=== PATIENT | male | born 1940 | race Hispanic/Latino ===

== ENCOUNTER 2017-11-10 15:43 | Inpatient (IN) | payer MEDICARE ==
[2017-11-08 14:38] VITALS: BMI 41.5
[2017-11-10] MEDS ORDERED: (Novolog) Insulin Aspart, Recombinant 100 u/ml 10 ml vial SC SCH (16:15)
--- NOTE | 2017-11-10 16:29 | CP.PCM.CON ---
History of Present Illness - History of Present Illness History of Present Illness: 77 y/o male with pmx of hyperbillirubinemia (previous work up for MRI reveal possible mass effect pancrease), ERCP not performed 2nd hemodynamic status. Patient was treated at [facility] [place] for ARF, jaundice and heart failure. PAtient notes difficult breathing with minimal exertion. PAtient has "yellow skin" for more than 2 weeks. Patient was being treated for coagulopathy and is trasnferred to [facility] for HD. Patient seen and examine at bedside. Patient awake, alert. denies any abdminal pain, denies any chest pain, denies any headaches, (+)SOB. Review of Systems - Review of Systems All systems: reviewed and no additional remarkable complaints except Review of Systems: (+)SOB, (+)jaundice Past Patient History - Infectious Disease Hx of Infectious Diseases: None - Tetanus Immunizations Tetanus Immunization: Unknown - Past Social History Smoking Status: Current Some Days Smoker - CARDIAC Hx Cardiac Disorders: Yes Hx Cardia Arrhythmia: Yes Hx Circulatory Problems: No Hx Congestive Heart Failure: Yes Hx Heart Murmur: No Hx Heart Transplant: No Hx Hypercholesterolemia: Yes Hx Hypertension: Yes Hx Internal Defibrillator: No Hx Mitral Valve Prolapse: No Hx Pacemaker: No Hx Peripheral Edema: No Hx Peripheral Vascular Disease: No - PULMONARY Hx Respiratory Disorders: No Hx Asthma: No Hx Bronchitis: No Hx Chronic Obstructive Pulmonary Disease (COPD): No Hx Emphysema: No Hx Pneumonia: No Hx Respiratory Aspiration: No Hx Respiratory Tract Infection: No Hx Sleep Apnea: No Hx Tuberculosis: No - NEUROLOGICAL Hx Neurological Disorder: No Hx Alzheimer's Disease: No HX Cerebrovascular Accident: No Hx Dementia: No Hx Dizziness: No Hx Meningitis: No Hx Migraine: No Hx Parkinson's Disease: No Hx Seizures: No Hx Transient Ischemic Attacks (TIA): No - HEENT Hx HEENT Problems: No - RENAL Hx Chronic Kidney Disease: No - ENDOCRINE/METABOLIC Hx Endocrine Disorders: No - HEMATOLOGICAL/ONCOLOGICAL Hx Blood Disorders: No Hx AIDS: No Hx Anemia: No Hx Cancer: No Hx Chemotherapy: No Hx Cirrhosis: No Hx Hepatitis A: No Hx Hepatitis B: No Hx Hepatitis C: No Hx Human Immunodeficiency Virus (HIV): No Hx Metastesis: No Hx Shingles: No Hx Unexplained Bleeding: No - INTEGUMENTARY Hx Dermatological Problems: No - MUSCULOSKELETAL/RHEUMATOLOGICAL Hx Musculoskeletal Disorders: Yes Hx Arthritis: No Hx Back Pain: No Hx Degenerative Joint Disease: No Hx Falls: No Hx Fractures: No Hx Gout: No Hx Herniated Disk: No Hx Myasthenia Gravis: No Hx Osteoarthritis: Yes Hx Osteomyelitis: No Hx Osteoporosis: No Hx Rhabdomyolysis: No Hx Spinal Stenosis: No Hx Unsteady Gait: No - GASTROINTESTINAL Hx Gastrointestinal Disorders: Yes Hx Colostomy: No Hx Crohn's Disease: No Hx Diverticulitis: No Hx Gall Bladder Disease: Yes Hx Gastroesophageal Reflux: No Hx Ileostomy: No Hx Liver Failure: No Hx Pancreatitis: No HX Swallowing Problems: No Hx Ulcer: No - GENITOURINARY/GYNECOLOGICAL Hx Genitourinary Disorders: No - PSYCHIATRIC Hx Psychophysiologic Disorder: No Hx Substance Use: No - SURGICAL HISTORY Hx Surgeries: No Hx Amputation: No Hx Appendectomy: No Hx Cardiac Catheterization: Yes Hx Cholecystectomy: No Hx Coronary Stent: No Hx Gastric Bypass Surgery: No Hx Hysterectomy: No Hx Joint Replacement: No Hx Kidney Transplant: No Hx Liver Transplant: No Hx Mastectomy: No Hx Musculoskeletal Surgery: No Hx Open Heart Surgery: No Hx Orthopedic Surgery: No Hx Splenectomy: No Hx Valve Replacement: No - ANESTHESIA Hx Anesthesia Reactions: No Hx Malignant Hyperthermia: No Meds Allergies/Adverse Reactions: Allergies Allergy/AdvReac Type Severity Reaction Status Date / Time aspirin Allergy ANAPHYLAXIS Verified 11/08/17 14:49 Penicillins Allergy PT DOES Verified 11/08/17 14:49 NOT REMEMBER THE REACTION - Medications Medications: Current Medications Norepinephrine Bitartrate 8 mg (/ Dextrose) 258 mls @ 7.74 mls/hr IV .Q24H PRN ; Protocol; 4 MCG/MIN PRN Reason: TITRATE PER MD ORDER Meropenem 500 mg/ Sodium (Chloride) 100 mls @ 100 mls/hr IVPB QAM JAQUELINE PRN Reason: Protocol Insulin Aspart (Novolog) 0 unit SC Q6H JAQUELINE PRN Reason: Protocol Physical Exam - Head Exam Head Exam: ATRAUMATIC, NORMAL INSPECTION - Eye Exam Eye Exam: Scleral icterus Pupil Exam: PERRL - ENT Exam ENT Exam: Mucous Membranes Moist - Neck Exam Neck exam: Positive for: Normal Inspection - Respiratory Exam Respiratory Exam: Rales, NORMAL BREATHING PATTERN. absent: Rhonchi, Wheezes, Respiratory Distress - Cardiovascular Exam Cardiovascular Exam: Irregular Rhythm, +S1, +S2, Systolic Murmur - GI/Abdominal Exam GI & Abdominal Exam: Distended, Normal Bowel Sounds, Soft. absent: Bruit, Guarding, Hernia, Rebound, Rigid, Tenderness - Extremities Exam Extremities exam: Positive for: pedal edema Results - Labs Result Diagrams: 11/10/17 16:02 11/10/17 17:37 Assessment & Plan - Assessment and Plan (Free Text) Assessment: PAinless JAundice: c/w suspect cholangiocarcinoma or billiary obstruction. keep patient NPO, not a candidate for ERCP 2nd severe heart failure, will request IR to place percutaneous nephrostomy tube -Severe systolic heart failure (EF ~20%): avoid fluid overloaded states, will not benefit from acei, bi-pap PRN -hypoxic respiratory failure: continue oxygen to keep spo2 >92, breathing comfortably -Septic shock: start pressors to keep MAP >65, start marisel (tolerated as bag infusing while patient was transported)/(renally dosed), serial lactic and quintero culture -MACIE/CKD stage IV: will benefit from renal eval and anticiapted HD(original plan for transfer) -BGM q6hrs/aspart ISS -pud ppx protonix IV -DVT ppx scds Patient's overall prognosis poor as age, clinical symptoms (painless jaundice) suggests possible underlying cancer (cholangiocarcinoma/pancreatic)--unable to diagnose with tissue biopsy due to patient's other co-morbidities. above management d/w son and at bedside with patient. -obtain imaging, obtain IR consult for percutaneous drainage and continue HD. -surgery and GI consulted for input cc time 45 minutes All diagnostic tests pending d/w primary team - Date & Time Date: 11/10/17 Time: 16:37
--- NOTE | 2017-11-10 17:10 | CP.PCM.HP ---
Addendum entered and electronically signed by Cristine Alonso DO 11/11/17 01 :28: (1) Septic shock Assessment and Plan: On admission, systolic pressure in the 80s/90s , mildly tachycardic, leukocytosis On Merrem, Pressor support at this time. F/U TAYLOR cultures Intensive care monitoring Status: Acute Original Note: <Cristine Alonso - Last Filed: 11/11/17 00:47> History of Present Illness - History of Present Illness History of Present Illness: Patient seen and examined at approximately 5:15Pm in ICU Bed 18. Patient is a FULL CODE status at this time. His Son Christopher Blount is his emergency contact. He can be reached at [phone]. CC: back pain and pruritus HPI: 77 year old male with past medical history significant for Obstructive Jaundice, Atrial Fibrillation, CHF, GI Bleed and History of Pancreatic mass presents via transfer from [facility] for dialysis. Patient was previously being managed at [facility] for acute renal failure and jaundice. Earlier today, patient had a dialysis catheter placed in preparation for urgent dialysis. Patient states that his symptoms started back in October of this year when he noticed that his urine was a darkened color. He states that he followed up with his primary medical doctor who began a workup soon afterwards . Patient states that he has had a yellow tinge to his skin for approximately the past two weeks. Patient followed up with GI and had MRCP performed with findings which could not rule out pancreatic or biliary mass involvement. Patient was to go for outpatient ERCP on November 08, 2017 ; however became hypotensive and was thus sent to the ED at [facility] for further evaluation and workup requiring critical care as well as surgical and GI involvement. Patient states that his main complaints are back pain and pruritus. Patient denies chest pain, palpitations, nausea, vomiting or headaches at this time. PMHx- as stated above PSHx- Cardiac cath in 2013 or 2014, Dialysis Cath 11/2017 Fam Hx- Both parents of lung cancer Medications- Lisinopril, Coreg, Previously on Coumadin but stopped 4 weeks prior due to GI bleed , occasionally takes Lasix Social- Former cigar smoker (10 cigars a year)- History of secondhand smoke exposure for decades; denies alcohol or illicit drug use Allergies- ASA (gastritis) and PCN (unsure) Present on Admission - Present on Admission Any Indicators Present on Admission: No Review of Systems - Cardiovascular Cardiovascular: absent: Chest Pain, Chest Pain at Rest, Palpitations - Respiratory Respiratory: absent: Dyspnea, Dyspnea on Exertion - Gastrointestinal Gastrointestinal: absent: Nausea, Vomiting - Musculoskeletal Musculoskeletal: Back Pain. absent: Numbness - Integumentary Integumentary: Pruritus, Unusual Bruising - Neurological Neurological: absent: Headaches, Weakness - Psychiatric Psychiatric: absent: Anhedonia, Anxiety - Endocrine Endocrine: absent: Change in Body Appearance, Excessive Sweating - Hematologic/Lymphatic Hematologic: Easy Bleeding, Easy Bruising Past Patient History - Infectious Disease Hx of Infectious Diseases: None - Tetanus Immunizations Tetanus Immunization: Unknown - Past Social History Smoking Status: Current Some Days Smoker - CARDIAC Hx Cardiac Disorders: Yes Hx Cardia Arrhythmia: Yes Hx Circulatory Problems: No Hx Congestive Heart Failure: Yes Hx Heart Murmur: No Hx Heart Transplant: No Hx Hypercholesterolemia: Yes Hx Hypertension: Yes Hx Internal Defibrillator: No Hx Mitral Valve Prolapse: No Hx Pacemaker: No Hx Peripheral Edema: No Hx Peripheral Vascular Disease: No - PULMONARY Hx Respiratory Disorders: No Hx Asthma: No Hx Bronchitis: No Hx Chronic Obstructive Pulmonary Disease (COPD): No Hx Emphysema: No Hx Pneumonia: No Hx Respiratory Aspiration: No Hx Respiratory Tract Infection: No Hx Sleep Apnea: No Hx Tuberculosis: No - NEUROLOGICAL Hx Neurological Disorder: No Hx Alzheimer's Disease: No HX Cerebrovascular Accident: No Hx Dementia: No Hx Dizziness: No Hx Meningitis: No Hx Migraine: No Hx Parkinson's Disease: No Hx Seizures: No Hx Transient Ischemic Attacks (TIA): No - HEENT Hx HEENT Problems: No - RENAL Hx Chronic Kidney Disease: No - ENDOCRINE/METABOLIC Hx Endocrine Disorders: No - HEMATOLOGICAL/ONCOLOGICAL Hx Blood Disorders: No Hx AIDS: No Hx Anemia: No Hx Cancer: No Hx Chemotherapy: No Hx Cirrhosis: No Hx Hepatitis A: No Hx Hepatitis B: No Hx Hepatitis C: No Hx Human Immunodeficiency Virus (HIV): No Hx Metastesis: No Hx Shingles: No Hx Unexplained Bleeding: No - INTEGUMENTARY Hx Dermatological Problems: No - MUSCULOSKELETAL/RHEUMATOLOGICAL Hx Musculoskeletal Disorders: Yes Hx Arthritis: No Hx Back Pain: No Hx Degenerative Joint Disease: No Hx Falls: No Hx Fractures: No Hx Gout: No Hx Herniated Disk: No Hx Myasthenia Gravis: No Hx Osteoarthritis: Yes Hx Osteomyelitis: No Hx Osteoporosis: No Hx Rhabdomyolysis: No Hx Spinal Stenosis: No Hx Unsteady Gait: No - GASTROINTESTINAL Hx Gastrointestinal Disorders: Yes Hx Colostomy: No Hx Crohn's Disease: No Hx Diverticulitis: No Hx Gall Bladder Disease: Yes Hx Gastroesophageal Reflux: No Hx Ileostomy: No Hx Liver Failure: No Hx Pancreatitis: No HX Swallowing Problems: No Hx Ulcer: No - GENITOURINARY/GYNECOLOGICAL Hx Genitourinary Disorders: No - PSYCHIATRIC Hx Psychophysiologic Disorder: No Hx Substance Use: No - SURGICAL HISTORY Hx Surgeries: No Hx Amputation: No Hx Appendectomy: No Hx Cardiac Catheterization: Yes Hx Cholecystectomy: No Hx Coronary Stent: No Hx Gastric Bypass Surgery: No Hx Hysterectomy: No Hx Joint Replacement: No Hx Kidney Transplant: No Hx Liver Transplant: No Hx Mastectomy: No Hx Musculoskeletal Surgery: No Hx Open Heart Surgery: No Hx Orthopedic Surgery: No Hx Splenectomy: No Hx Valve Replacement: No - ANESTHESIA Hx Anesthesia Reactions: No Hx Malignant Hyperthermia: No Meds Allergies/Adverse Reactions: Allergies Allergy/AdvReac Type Severity Reaction Status Date / Time aspirin Allergy ANAPHYLAXIS Verified 11/08/17 14:49 Penicillins Allergy PT DOES Verified 11/08/17 14:49 NOT REMEMBER THE REACTION Physical Exam - Constitutional Appears: Non-toxic Additional comments: large body habitus - Head Exam Head Exam: ATRAUMATIC - Eye Exam Eye Exam: EOMI, Scleral icterus - ENT Exam ENT Exam: Mucous Membranes Moist - Neck Exam Neck exam: Positive for: Full Rom - Respiratory Exam Respiratory Exam: NORMAL BREATHING PATTERN. absent: Rales, Wheezes - Cardiovascular Exam Cardiovascular Exam: +S1, +S2 - GI/Abdominal Exam GI & Abdominal Exam: Distended, Soft. absent: Firm, Guarding, Tenderness - Extremities Exam Extremities exam: Positive for: pedal edema - Back Exam Back exam: absent: FULL ROM - Neurological Exam Neurological exam: Alert, Oriented x3 - Psychiatric Exam Psychiatric exam: Normal Affect, Normal Mood - Skin Skin Exam: Petechiae (noted on anterior left shoulder, abdomen with superficial bruising) Additional comments: Jaundiced Results - Vital Signs Recent Vital Signs: Last Vital Signs Temp Pulse 82 11/10/17 16:41 Resp BP 95/53 L 11/10/17 16:41 Pulse Ox - Labs Result Diagrams: 11/10/17 16:02 11/10/17 17:37 Assessment & Plan (1) Septic shock Assessment and Plan: On admission, systolic pressure in the 80s/90s , mildly tachycardic, leukocytosis Pressor support at this time. F/U TAYLOR cultures Intensive care monitoring Status: Acute (2) Obstructive jaundice Assessment and Plan: Patient is not a candidate for ERCP due to CHF. Consult to IR for cholangiogram with stent placement. F/U recommendations F/U GI recommendations Concerns for panceratic mass noted on imaging- F/U HemeOnc recommendations Status: Acute (3) Acute renal failure Assessment and Plan: Originally for dialysis today; however patient deferred today. Agreeable to HD therapy on 11/11 F/U recommendations from Dr. Carolina, [employer] Monitor renal function Status: Acute (4) Congestive heart failure Assessment and Plan: Most recent ECHO with EF approx 40% from 10/31/2017. Refer to complete report. Back in 2013, patient's EF was 20-25%. Discrepancy noted F/U recommendations from Manufact[employer] Representative Dr. Combs Monitor intake and output. Height of bed elevated Status: Chronic (5) Atrial fibrillation Assessment and Plan: On Coreg 6.25 mg PO BID at home Coumadin discontinued due to recent GI bleed F/U Cardio recommendations Status: Chronic (6) Prophylactic measure Assessment and Plan: On PPI 40 mg IV daily Chemical anticoagulation contraindicated in light of history of recent GI bleed Status: Acute <Helio Guevara - Last Filed: 11/11/17 08:50> Results - Vital Signs Recent Vital Signs: Last Vital Signs Temp 97.4 F L 11/11/17 04:00 Pulse 106 H 11/11/17 04:15 Resp 24 11/11/17 04:15 BP 100/65 11/11/17 04:11 Pulse Ox 97 11/11/17 04:15 - Labs Result Diagrams: 11/11/17 06:15 11/11/17 06:15 Labs: Laboratory Results - last 24 hr 11/10/17 11/10/17 11/10/17 16:02 17:37 17:37 WBC 13.1 H RBC 3.33 L Hgb 10.8 L Hct 31.2 L MCV 93.8 MCH 32.6 H MCHC 34.7 RDW 16.4 H Plt Count 145 MPV 10.0 Neut % (Auto) 73.3 Lymph % (Auto) 4.6 L [place] % (Auto) 21.8 H Eos % (Auto) 0.2 Baso % (Auto) 0.1 Neut # (Auto) 9.6 H Lymph # (Auto) 0.6 L [place] # (Auto) 2.8 H Eos # (Auto) 0.0 Baso # (Auto) 0.0 Neutrophils % (Manual) 77 H Band Neutrophils % 6 H Lymphocytes % (Manual) 6 L Monocytes % (Manual) 11 H Platelet Estimate Normal Large Platelets Present Hypochromasia (manual) Slight Poikilocytosis (manual Slight Anisocytosis (manual) Slight Microcytosis (manual) Slight Macrocytosis (manual) Slight Target Cells Slight PT INR APTT Fibrinogen Sodium 142 Potassium 3.9 Chloride 111 H Carbon Dioxide 13 L Anion Gap 22 H BUN 89 H Creatinine 6.6 H Est GFR ( Amer) 10 Est GFR (Non-Af Amer) 8 POC Glucose (mg/dL) Random Glucose 117 H Lactic Acid 1.2 Calcium 6.7 L Phosphorus 7.2 H Magnesium 1.9 Total Bilirubin 37.8 H AST 81 H ALT 70 Alkaline Phosphatase 327 H Ammonia Troponin I 0.0210 NT-Pro-B Natriuret Pep 57995 H Total Protein 6.5 Albumin 2.9 L Globulin 3.6 Albumin/Globulin Ratio 0.8 L Urine Color Urine Clarity Urine pH Ur Specific [place] Urine Protein Urine Glucose (UA) Urine Ketones Urine Blood Urine Nitrate Urine Bilirubin Urine Urobilinogen Ur Leukocyte Esterase Urine WBC (Auto) Urine RBC (Auto) Ur Squamous Epith Cells Amorphous Sediment Urine Bacteria Random Vancomycin Blood Type Antibody Screen 11/10/17 11/10/17 11/10/17 17:37 17:37 17:37 WBC RBC Hgb Hct MCV MCH MCHC RDW Plt Count MPV Neut % (Auto) Lymph % (Auto) [place] % (Auto) Eos % (Auto) Baso % (Auto) Neut # (Auto) Lymph # (Auto) [place] # (Auto) Eos # (Auto) Baso # (Auto) Neutrophils % (Manual) Band Neutrophils % Lymphocytes % (Manual) Monocytes % (Manual) Platelet Estimate Large Platelets Hypochromasia (manual) Poikilocytosis (manual Anisocytosis (manual) Microcytosis (manual) Macrocytosis (manual) Target Cells PT 13.8 H INR 1.3 APTT 30 Fibrinogen 219 Sodium Potassium Chloride Carbon Dioxide Anion Gap BUN Creatinine Est GFR ( Amer) Est GFR (Non-Af Amer) POC Glucose (mg/dL) Random Glucose Lactic Acid Calcium Phosphorus Magnesium Total Bilirubin AST ALT Alkaline Phosphatase Ammonia 38 H Troponin I NT-Pro-B Natriuret Pep Total Protein Albumin Globulin Albumin/Globulin Ratio Urine Color Urine Clarity Urine pH Ur Specific [place] Urine Protein Urine Glucose (UA) Urine Ketones Urine Blood Urine Nitrate Urine Bilirubin Urine Urobilinogen Ur Leukocyte Esterase Urine WBC (Auto) Urine RBC (Auto) Ur Squamous Epith Cells Amorphous Sediment Urine Bacteria Random Vancomycin Blood Type O POSITIVE Antibody Screen Negative 11/10/17 11/10/17 11/10/17 17:37 17:44 18:20 WBC RBC Hgb Hct MCV MCH MCHC RDW Plt Count MPV Neut % (Auto) Lymph % (Auto) [place] % (Auto) Eos % (Auto) Baso % (Auto) Neut # (Auto) Lymph # (Auto) [place] # (Auto) Eos # (Auto) Baso # (Auto) Neutrophils % (Manual) Band Neutrophils % Lymphocytes % (Manual) Monocytes % (Manual) Platelet Estimate Large Platelets Hypochromasia (manual) Poikilocytosis (manual Anisocytosis (manual) Microcytosis (manual) Macrocytosis (manual) Target Cells PT INR APTT Fibrinogen Sodium Potassium Chloride Carbon Dioxide Anion Gap BUN Creatinine Est GFR ( Amer) Est GFR (Non-Af Amer) POC Glucose (mg/dL) 102 Random Glucose Lactic Acid Calcium Phosphorus Magnesium Total Bilirubin AST ALT Alkaline Phosphatase Ammonia Troponin I NT-Pro-B Natriuret Pep Total Protein Albumin Globulin Albumin/Globulin Ratio Urine Color Nancy Urine Clarity Hazy Urine pH 5.0 Ur Specific [place] 1.016 Urine Protein 2+ H Urine Glucose (UA) 1+ H Urine Ketones Negative Urine Blood 3+ H Urine Nitrate Negative Urine Bilirubin 2+ H Urine Urobilinogen 2.0 Ur Leukocyte Esterase 2+ H Urine WBC (Auto) 6 H Urine RBC (Auto) 551 H Ur Squamous Epith Cells 2 Amorphous Sediment Rare H Urine Bacteria Occ H Random Vancomycin 6.2 Blood Type Antibody Screen 11/10/17 11/10/17 11/10/17 19:48 19:48 23:17 WBC RBC Hgb Hct MCV MCH MCHC RDW Plt Count MPV Neut % (Auto) Lymph % (Auto) [place] % (Auto) Eos % (Auto) Baso % (Auto) Neut # (Auto) Lymph # (Auto) [place] # (Auto) Eos # (Auto) Baso # (Auto) Neutrophils % (Manual) Band Neutrophils % Lymphocytes % (Manual) Monocytes % (Manual) Platelet Estimate Large Platelets Hypochromasia (manual) Poikilocytosis (manual Anisocytosis (manual) Microcytosis (manual) Macrocytosis (manual) Target Cells PT INR APTT Fibrinogen Sodium Potassium Chloride Carbon Dioxide Anion Gap BUN Creatinine Est GFR ( Amer) Est GFR (Non-Af Amer) POC Glucose (mg/dL) 108 Random Glucose Lactic Acid 0.9 Calcium Phosphorus Magnesium Total Bilirubin AST ALT Alkaline Phosphatase Ammonia Troponin I 0.0220 NT-Pro-B Natriuret Pep Total Protein Albumin Globulin Albumin/Globulin Ratio Urine Color Urine Clarity Urine pH Ur Specific [place] Urine Protein Urine Glucose (UA) Urine Ketones Urine Blood Urine Nitrate Urine Bilirubin Urine Urobilinogen Ur Leukocyte Esterase Urine WBC (Auto) Urine RBC (Auto) Ur Squamous Epith Cells Amorphous Sediment Urine Bacteria Random Vancomycin Blood Type Antibody Screen 11/11/17 11/11/17 11/11/17 05:50 06:15 06:15 WBC RBC Hgb Hct MCV MCH MCHC RDW Plt Count MPV Neut % (Auto) Lymph % (Auto) [place] % (Auto) Eos % (Auto) Baso % (Auto) Neut # (Auto) Lymph # (Auto) [place] # (Auto) Eos # (Auto) Baso # (Auto) Neutrophils % (Manual) Band Neutrophils % Lymphocytes % (Manual) Monocytes % (Manual) Platelet Estimate Large Platelets Hypochromasia (manual) Poikilocytosis (manual Anisocytosis (manual) Microcytosis (manual) Macrocytosis (manual) Target Cells PT INR APTT Fibrinogen Sodium Potassium Chloride Carbon Dioxide Anion Gap BUN Creatinine Est GFR ( Amer) Est GFR (Non-Af Amer) POC Glucose (mg/dL) 148 H Random Glucose Lactic Acid 0.9 Calcium Phosphorus Magnesium Total Bilirubin AST ALT Alkaline Phosphatase Ammonia Troponin I 0.0270 NT-Pro-B Natriuret Pep Total Protein Albumin Globulin Albumin/Globulin Ratio Urine Color Urine Clarity Urine pH Ur Specific [place] Urine Protein Urine Glucose (UA) Urine Ketones Urine Blood Urine Nitrate Urine Bilirubin Urine Urobilinogen Ur Leukocyte Esterase Urine WBC (Auto) Urine RBC (Auto) Ur Squamous Epith Cells Amorphous Sediment Urine Bacteria Random Vancomycin Blood Type Antibody Screen 11/11/17 11/11/17 11/11/17 06:15 06:15 06:15 WBC 21.1 H D RBC 3.45 L Hgb 11.3 L Hct 32.3 L MCV 93.6 MCH 32.9 H MCHC 35.1 RDW 16.3 H Plt Count 163 MPV 9.8 Neut % (Auto) 51.8 Lymph % (Auto) 34.3 [place] % (Auto) 13.9 H Eos % (Auto) 0.0 Baso % (Auto) 0.0 Neut # (Auto) 10.9 H Lymph # (Auto) 7.2 H [place] # (Auto) 2.9 H Eos # (Auto) 0.0 Baso # (Auto) 0.0 Neutrophils % (Manual) Band Neutrophils % Lymphocytes % (Manual) Monocytes % (Manual) Platelet Estimate Large Platelets Hypochromasia (manual) Poikilocytosis (manual Anisocytosis (manual) Microcytosis (manual) Macrocytosis (manual) Target Cells PT 13.9 H INR 1.3 APTT Fibrinogen Sodium 143 Potassium 4.1 Chloride 110 H Carbon Dioxide 13 L Anion Gap 24 H BUN 96 H Creatinine 7.3 H Est GFR ( Amer) 9 Est GFR (Non-Af Amer) 7 POC Glucose (mg/dL) Random Glucose 135 H Lactic Acid Calcium 6.9 L Phosphorus 8.0 H Magnesium 1.9 Total Bilirubin 37.6 H AST 78 H ALT 74 H Alkaline Phosphatase 346 H Ammonia Troponin I NT-Pro-B Natriuret Pep Total Protein 6.9 Albumin 3.0 L Globulin 3.9 Albumin/Globulin Ratio 0.8 L Urine Color Urine Clarity Urine pH Ur Specific [place] Urine Protein Urine Glucose (UA) Urine Ketones Urine Blood Urine Nitrate Urine Bilirubin Urine Urobilinogen Ur Leukocyte Esterase Urine WBC (Auto) Urine RBC (Auto) Ur Squamous Epith Cells Amorphous Sediment Urine Bacteria Random Vancomycin Blood Type Antibody Screen Attending/Attestation - Attestation I have personally seen and examined this patient.: Yes I have fully participated in the care of the patient.: Yes I have reviewed all pertinent clinical information: Yes Notes (Text): Patient was seen and examined by me with the resident in the ICU. Discussed with Dr Ailyn Larry,patient and his Son . This is a 77 years male with history of CHF,afib , Morbid obesity and admitted from [facility] for dialysis . Patient is hypotensive on Levophed and has acute renal failure and obstructive Jaundice. Onset of acute renal failure 11/08/17. s/p admission at [facility] for GI bleeding and Jaundice on 10/30/2017. Found to have INR of 17 (Was on coumadin), maddy and obstructive jaundice. Patient's hypercoag state was corrected with FFP and vit K. Patient's MRCP on shosed dilated CBD,CT on 10/30 suspected pancreatic mass and dilated CBD. EGD/MRCP was not done due to Hypotension at [facility]. 1.Acute renal failure 2.Sepsis and Hypotension on Levophed 3.Obstructive Jaundice ,dilated bile ducts and pancreatic mass 4.Congestive heart failure 5.s/p Right IJ for dialysis Patient is on Merrem and levophed,Repeat cultures Spoke to Son and at bedside Discussed with Dr Laron Robertson americanization teacher. He spoke to Dr Damon CHACON and Dr Carolina nephrology Spoke to Dr Abdi. Cardiology and GI on board. Assessment and the plan discussed with the resident
[2017-11-10 17:47] LABS: BASO % 0.1 % (0.0-2.0); EOS % 0.2 % (0.0-4.0)
[2017-11-10 17:51] LABS: HEMOGLOBIN 10.8 g/dL (12.0-18.0); LYMPH # 0.6 K/uL (1.0-4.3); LYMPH % 4.6 % (20.0-40.0); MEAN CELL VOLUME 93.8 fL (80.0-94.0); MEAN CORPUSCULAR HEMOGLOBIN 32.6 pg (27.0-31.0); MEAN CORPUSCULAR HGB CONC 34.7 g/dL (33.0-37.0); MONO # 2.8 K/uL (0.0-0.8); MONO % 21.8 % (0.0-10.0); NEUT # 9.6 K/uL (1.8-7.0); NEUT % 73.3 % (50.0-75.0); PLATELET COUNT 145 K/uL (130-400); RBC 3.33 Mil/uL (4.40-5.90); RED CELL DISTRIBUTION WIDTH 16.4 % (11.5-14.5); WHITE BLOOD COUNT 13.1 K/uL (4.8-10.8)
[2017-11-10 18:01] LABS: INR 1.3; PROTHROMBIN TIME 13.8 SECONDS (9.7-12.2)
[2017-11-10 18:03] LABS: ALB/GLOB RATIO 0.8 (1.0-2.1); ALBUMIN 2.9 g/dL (3.5-5.0); CALCIUM 6.7 mg/dl (8.6-10.4)
[2017-11-10 18:10] LABS: TROPONIN I 0.021 ng/mL (0.00-0.120)
[2017-11-10 18:17] LABS: BANDS 6 % (0-2); LYMPHOCYTE 6 % (20-40); MONOCYTE 11 % (0-10); NEUTROPHIL 77 % (50-75); PLATELET ESTIMATE NORMAL (NORMAL); TOTAL CELLS COUNTED 100
[2017-11-10 18:18] LABS: ANISOCYTOSIS SLIGHT; HYPOCHROMIC SLIGHT; LARGE PLATELETS PRESENT; MICROCYTOSIS SLIGHT; POIKILOCYTOSIS SLIGHT; TARGET CELLS SLIGHT
--- NOTE | 2017-11-10 18:18 | CP.PCM.CON ---
History of Present Illness - History of Present Illness History of Present Illness: Surgery: Dr. Boudreaux CC: Obstructive jaundice HPI:: 77M w. pmh of HTN, afib, CHF, presents with painless jaundice x 2 weeks. He states that it has been accompanied by decreased appetite. He denies N/V. He does have diarrhea, which he reports is black in color. He reports decreased U/ O which is dark in color. He denies F/C, no SOB/cough, no CP/palpitations. At [facility] [place] he had MRCP which showed intra/extrahepatic ductal dilation with CBD of 17mm at seth hepatis w. abrupt transition concerning for mass. Pt has been to unstable to undergo ERCP. PMH: see above PSH: cardiac cath Meds: MAR reviewed ALL: PCN, ASA Social: No ETOH/drugs, former tobacco Fhx: Mother/father- Lung CA Review of Systems - Review of Systems All systems: reviewed and no additional remarkable complaints except (HPI) Past Patient History - Infectious Disease Hx of Infectious Diseases: None - Tetanus Immunizations Tetanus Immunization: Unknown - Past Medical History & Family History Past Medical History?: Yes - Past Social History Smoking Status: Current Some Days Smoker - CARDIAC Hx Cardiac Disorders: Yes Hx Cardia Arrhythmia: Yes Hx Circulatory Problems: No Hx Congestive Heart Failure: Yes Hx Heart Murmur: No Hx Heart Transplant: No Hx Hypercholesterolemia: Yes Hx Hypertension: Yes Hx Internal Defibrillator: No Hx Mitral Valve Prolapse: No Hx Pacemaker: No Hx Peripheral Edema: No Hx Peripheral Vascular Disease: No - PULMONARY Hx Respiratory Disorders: No Hx Asthma: No Hx Bronchitis: No Hx Chronic Obstructive Pulmonary Disease (COPD): No Hx Emphysema: No Hx Pneumonia: No Hx Respiratory Aspiration: No Hx Respiratory Tract Infection: No Hx Sleep Apnea: No Hx Tuberculosis: No - NEUROLOGICAL Hx Neurological Disorder: No Hx Alzheimer's Disease: No HX Cerebrovascular Accident: No Hx Dementia: No Hx Dizziness: No Hx Meningitis: No Hx Migraine: No Hx Parkinson's Disease: No Hx Seizures: No Hx Transient Ischemic Attacks (TIA): No - HEENT Hx HEENT Problems: No - RENAL Hx Chronic Kidney Disease: No - ENDOCRINE/METABOLIC Hx Endocrine Disorders: No - HEMATOLOGICAL/ONCOLOGICAL Hx Blood Disorders: No Hx AIDS: No Hx Anemia: No Hx Cancer: No Hx Chemotherapy: No Hx Cirrhosis: No Hx Hepatitis A: No Hx Hepatitis B: No Hx Hepatitis C: No Hx Human Immunodeficiency Virus (HIV): No Hx Metastesis: No Hx Shingles: No Hx Unexplained Bleeding: No - INTEGUMENTARY Hx Dermatological Problems: No - MUSCULOSKELETAL/RHEUMATOLOGICAL Hx Musculoskeletal Disorders: Yes Hx Arthritis: No Hx Back Pain: No Hx Degenerative Joint Disease: No Hx Falls: No Hx Fractures: No Hx Gout: No Hx Herniated Disk: No Hx Myasthenia Gravis: No Hx Osteoarthritis: Yes Hx Osteomyelitis: No Hx Osteoporosis: No Hx Rhabdomyolysis: No Hx Spinal Stenosis: No Hx Unsteady Gait: No - GASTROINTESTINAL Hx Gastrointestinal Disorders: Yes Hx Colostomy: No Hx Crohn's Disease: No Hx Diverticulitis: No Hx Gall Bladder Disease: Yes Hx Gastroesophageal Reflux: No Hx Ileostomy: No Hx Liver Failure: No Hx Pancreatitis: No HX Swallowing Problems: No Hx Ulcer: No - GENITOURINARY/GYNECOLOGICAL Hx Genitourinary Disorders: No - PSYCHIATRIC Hx Psychophysiologic Disorder: No Hx Substance Use: No - SURGICAL HISTORY Hx Surgeries: No Hx Amputation: No Hx Appendectomy: No Hx Cardiac Catheterization: Yes Hx Cholecystectomy: No Hx Coronary Stent: No Hx Gastric Bypass Surgery: No Hx Hysterectomy: No Hx Joint Replacement: No Hx Kidney Transplant: No Hx Liver Transplant: No Hx Mastectomy: No Hx Musculoskeletal Surgery: No Hx Open Heart Surgery: No Hx Orthopedic Surgery: No Hx Splenectomy: No Hx Valve Replacement: No - ANESTHESIA Hx Anesthesia Reactions: No Hx Malignant Hyperthermia: No Meds Allergies/Adverse Reactions: Allergies Allergy/AdvReac Type Severity Reaction Status Date / Time aspirin Allergy ANAPHYLAXIS Verified 11/08/17 14:49 Penicillins Allergy PT DOES Verified 11/08/17 14:49 NOT REMEMBER THE REACTION - Medications Medications: Current Medications Norepinephrine Bitartrate 8 mg (/ Dextrose) 258 mls @ 7.74 mls/hr IV .Q24H PRN ; Protocol; 4 MCG/MIN PRN Reason: TITRATE PER MD ORDER Last Admin: 11/10/17 16:41 Dose: 11.62 mcg/min, 22.5 mls/hr Meropenem 500 mg/ Sodium (Chloride) 100 mls @ 100 mls/hr IVPB QAM JAQUELINE PRN Reason: Protocol Insulin Aspart (Novolog) 0 unit SC Q6H JAQUELINE PRN Reason: Protocol Pantoprazole Sodium (Protonix Inj) 40 mg IVP DAILY JAQUELINE Physical Exam - Constitutional Appears: Non-toxic, No Acute Distress - Head Exam Head Exam: ATRAUMATIC, NORMOCEPHALIC - Eye Exam Eye Exam: EOMI, Scleral icterus - ENT Exam ENT Exam: Mucous Membranes Moist - Neck Exam Neck exam: Positive for: Full Rom - Respiratory Exam Respiratory Exam: NORMAL BREATHING PATTERN. absent: Accessory Muscle Use, Respiratory Distress - Cardiovascular Exam Cardiovascular Exam: REGULAR RHYTHM - GI/Abdominal Exam GI & Abdominal Exam: Soft. absent: Distended, Firm, Guarding, Rebound, Rigid, Tenderness - Extremities Exam Extremities exam: Negative for: calf tenderness, pedal edema - Neurological Exam Neurological exam: Alert, Oriented x3 - Skin Skin Exam: Normal Color, Warm Results - Vital Signs Recent Vital Signs: Last Vital Signs Temp Pulse 82 11/10/17 16:41 Resp 28 H 11/10/17 16:35 BP 95/53 L 11/10/17 16:41 Pulse Ox 98 11/10/17 16:35 - Labs Result Diagrams: 11/10/17 16:02 11/10/17 17:37 Labs: Laboratory Results - last 24 hr 11/10/17 11/10/17 11/10/17 16:02 17:37 17:37 WBC 13.1 H RBC 3.33 L Hgb 10.8 L Hct 31.2 L MCV 93.8 MCH 32.6 H MCHC 34.7 RDW 16.4 H Plt Count 145 MPV 10.0 Neut % (Auto) 73.3 Lymph % (Auto) 4.6 L [place] % (Auto) 21.8 H Eos % (Auto) 0.2 Baso % (Auto) 0.1 Neut # (Auto) 9.6 H Lymph # (Auto) 0.6 L [place] # (Auto) 2.8 H Eos # (Auto) 0.0 Baso # (Auto) 0.0 PT INR APTT Fibrinogen Sodium 142 Potassium 3.9 Chloride 111 H Carbon Dioxide 13 L Anion Gap 22 H BUN 89 H Creatinine 6.6 H Est GFR ( Amer) 10 Est GFR (Non-Af Amer) 8 POC Glucose (mg/dL) Random Glucose 117 H Lactic Acid 1.2 Calcium 6.7 L Phosphorus 7.2 H Magnesium 1.9 Total Bilirubin 37.8 H AST 81 H ALT 70 Alkaline Phosphatase 327 H Ammonia Troponin I 0.0210 NT-Pro-B Natriuret Pep 49934 H Total Protein 6.5 Albumin 2.9 L Globulin 3.6 Albumin/Globulin Ratio 0.8 L Random Vancomycin 11/10/17 11/10/17 11/10/17 17:37 17:37 17:37 WBC RBC Hgb Hct MCV MCH MCHC RDW Plt Count MPV Neut % (Auto) Lymph % (Auto) [place] % (Auto) Eos % (Auto) Baso % (Auto) Neut # (Auto) Lymph # (Auto) [place] # (Auto) Eos # (Auto) Baso # (Auto) PT 13.8 H INR 1.3 APTT 30 Fibrinogen 219 Sodium Potassium Chloride Carbon Dioxide Anion Gap BUN Creatinine Est GFR ( Amer) Est GFR (Non-Af Amer) POC Glucose (mg/dL) Random Glucose Lactic Acid Calcium Phosphorus Magnesium Total Bilirubin AST ALT Alkaline Phosphatase Ammonia 38 H Troponin I NT-Pro-B Natriuret Pep Total Protein Albumin Globulin Albumin/Globulin Ratio Random Vancomycin 6.2 11/10/17 17:44 WBC RBC Hgb Hct MCV MCH MCHC RDW Plt Count MPV Neut % (Auto) Lymph % (Auto) [place] % (Auto) Eos % (Auto) Baso % (Auto) Neut # (Auto) Lymph # (Auto) [place] # (Auto) Eos # (Auto) Baso # (Auto) PT INR APTT Fibrinogen Sodium Potassium Chloride Carbon Dioxide Anion Gap BUN Creatinine Est GFR ( Amer) Est GFR (Non-Af Amer) POC Glucose (mg/dL) 102 Random Glucose Lactic Acid Calcium Phosphorus Magnesium Total Bilirubin AST ALT Alkaline Phosphatase Ammonia Troponin I NT-Pro-B Natriuret Pep Total Protein Albumin Globulin Albumin/Globulin Ratio Random Vancomycin Assessment & Plan - Assessment and Plan (Free Text) Assessment: 77M w. obstructive Jaundice -MRCP and U/S reviewed -Poor surgical candidate -Recommend PTC -d/w attending Dinesh PGY4
[2017-11-10 18:35] LABS: SQUAMOUS EPITHIAL 2 /hpf (0-5); URINE AMORPHOUS SEDIMENT RARE /ul (<OCC); URINE BACTERIA OCC (<OCC); URINE BILIRUBIN 2+ (NEGATIVE); URINE BLOOD 3+ (NEGATIVE); URINE CLARITY Hazy (Clear); URINE COLOR Amber (YELLOW); URINE GLUCOSE (UA) 1+ mg/dL (Normal); URINE LEUKOCYTE ESTERASE 2+ Leu/uL (Negative); URINE PROTEIN 2+ mg/dL (NEGATIVE)
--- NOTE | 2017-11-10 18:56 | CP.PCM.CON ---
History of Present Illness - History of Present Illness History of Present Illness: Nephrology Consultation Note Assessment: critical oligoanuric MACIE likely due to ATN due to septic shock. other possible causes may include hepato-renal, recent IV contrast exposure HAGMA obstructive jaundice HTN, CHF, A fib, morbd obesity moderate TR left 2 cm adrenal adenoma Pancreatic mass hyperphosphatemia Anemia Plan renal replacement therapy initiation d/w patient, he is agreeable but refused for dialysis today. he consented to start HD from tomorrow maintain hemodynamics stable. avoid hypotension monitor I/O daily weights and renal function with BMP supplement bicarb check UA, urine pro/cr, urine sodium, urine creat work up for adrenal mass later as outpt once stable Dose meds/antibiotics for reduced GFR <10. Avoid fleets enema/magnesium based laxatives. Avoid nephrotoxins/NSAIDs/ iodinated contrast (unless needed emergently) Glycemic control, Further work up for as per primary team. Thanks for allowing me to participate in care of your patient. will follow with you. Please call if any Qs. will d/w team Dr Jairo [place] Office: [phone] CC: tiredness low BP reason for consult: MACIE HPI: Pt is a 77 y/o M with hx of HTN, CHF, A fib, morbd obesity recently diagnosed with jaundice and undergoing work up for it, so far suggestive of pancreatic mass, admitted to [facility] with MACIE, decreased urine output and rise in bili, he was found to have hypotension prior to ERCP hence was transferred to [place]. Pt had dialysis catheter placed and transferred to [facility] for dialysis initiation renal consult for MACIE management. pt feels ill and tired. has decresaed appetite. no aware about kidney disease in past says not making much urine no OTC/nsaids/herba meds CT with contrast done 10/30 evening. cr 10/31 AM 1.0 low BP noted, pt requiring pressors ROS: he denies SOB/chest pain/nausea/vomitting. rest all other neg except as mentioned in HPI Physical Examination: General Appearance: Comfortable, co-operative. mild tachypenoea. Vitals reviewed and noted as below Head; Atraumatic, normocephalic ENT: no ulcers no thrush. Tongue is midline/moist. Oropharynx: no rash or ulcers. EYES: Pupils are equal, round and reactive to light accommodation. Eye muscles and extraocular movement intact. Sclera is icteric. Neck; supple no lymphadenopathy, no thyromegaly or bruit Lungs: Increased respiratory rate/effort. Breath sounds appears clear b/l Heart: Normal rate. s1s2 normal. No rub or gallop. Extremities: 1+ edema. No varicose veins Neurological: Patient is alert, awake, oriented x 3 follows commands, no focal deifict. NO ASTERIXIS Skin: dry and warm. Normal turgor. No rash. Palpitation: Normal elasticity for age. grossly yellow Abdomen: Abdomen is soft non tender no apparent organomegaly Psych: normal insight. has normal affect and mood MSK: no specific joint tenderness or swelling. Digits and nails normal, no deformity : kidney not palpable. bladder not distended . has siu Labs/imaging/EKG reviewed. Past medical history, past surgical history, social history, allergy reviewed and noted as below Family hx; unable to obtain work up: left adrenal 2 cm adenoma moderate TR and mildly reduced LVEF UA 100 prot and GNR Bilirubin 36 Past Patient History - Infectious Disease Hx of Infectious Diseases: None - Tetanus Immunizations Tetanus Immunization: Unknown - Past Medical History & Family History Past Medical History?: Yes - Past Social History Smoking Status: Current Some Days Smoker - CARDIAC Hx Cardiac Disorders: Yes Hx Cardia Arrhythmia: Yes Hx Circulatory Problems: No Hx Congestive Heart Failure: Yes Hx Heart Murmur: No Hx Heart Transplant: No Hx Hypercholesterolemia: Yes Hx Hypertension: Yes Hx Internal Defibrillator: No Hx Mitral Valve Prolapse: No Hx Pacemaker: No Hx Peripheral Edema: No Hx Peripheral Vascular Disease: No - PULMONARY Hx Respiratory Disorders: No Hx Asthma: No Hx Bronchitis: No Hx Chronic Obstructive Pulmonary Disease (COPD): No Hx Emphysema: No Hx Pneumonia: No Hx Respiratory Aspiration: No Hx Respiratory Tract Infection: No Hx Sleep Apnea: No Hx Tuberculosis: No - NEUROLOGICAL Hx Neurological Disorder: No Hx Alzheimer's Disease: No HX Cerebrovascular Accident: No Hx Dementia: No Hx Dizziness: No Hx Meningitis: No Hx Migraine: No Hx Parkinson's Disease: No Hx Seizures: No Hx Transient Ischemic Attacks (TIA): No - HEENT Hx HEENT Problems: No - RENAL Hx Chronic Kidney Disease: No - ENDOCRINE/METABOLIC Hx Endocrine Disorders: No - HEMATOLOGICAL/ONCOLOGICAL Hx Blood Disorders: No Hx AIDS: No Hx Anemia: No Hx Cancer: No Hx Chemotherapy: No Hx Cirrhosis: No Hx Hepatitis A: No Hx Hepatitis B: No Hx Hepatitis C: No Hx Human Immunodeficiency Virus (HIV): No Hx Metastesis: No Hx Shingles: No Hx Unexplained Bleeding: No - INTEGUMENTARY Hx Dermatological Problems: No - MUSCULOSKELETAL/RHEUMATOLOGICAL Hx Musculoskeletal Disorders: Yes Hx Arthritis: No Hx Back Pain: No Hx Degenerative Joint Disease: No Hx Falls: No Hx Fractures: No Hx Gout: No Hx Herniated Disk: No Hx Myasthenia Gravis: No Hx Osteoarthritis: Yes Hx Osteomyelitis: No Hx Osteoporosis: No Hx Rhabdomyolysis: No Hx Spinal Stenosis: No Hx Unsteady Gait: No - GASTROINTESTINAL Hx Gastrointestinal Disorders: Yes Hx Colostomy: No Hx Crohn's Disease: No Hx Diverticulitis: No Hx Gall Bladder Disease: Yes Hx Gastroesophageal Reflux: No Hx Ileostomy: No Hx Liver Failure: No Hx Pancreatitis: No HX Swallowing Problems: No Hx Ulcer: No - GENITOURINARY/GYNECOLOGICAL Hx Genitourinary Disorders: No - PSYCHIATRIC Hx Psychophysiologic Disorder: No Hx Substance Use: No - SURGICAL HISTORY Hx Surgeries: No Hx Amputation: No Hx Appendectomy: No Hx Cardiac Catheterization: Yes Hx Cholecystectomy: No Hx Coronary Stent: No Hx Gastric Bypass Surgery: No Hx Hysterectomy: No Hx Joint Replacement: No Hx Kidney Transplant: No Hx Liver Transplant: No Hx Mastectomy: No Hx Musculoskeletal Surgery: No Hx Open Heart Surgery: No Hx Orthopedic Surgery: No Hx Splenectomy: No Hx Valve Replacement: No - ANESTHESIA Hx Anesthesia Reactions: No Hx Malignant Hyperthermia: No Meds Allergies/Adverse Reactions: Allergies Allergy/AdvReac Type Severity Reaction Status Date / Time aspirin Allergy ANAPHYLAXIS Verified 11/08/17 14:49 Penicillins Allergy PT DOES Verified 11/08/17 14:49 NOT REMEMBER THE REACTION - Medications Medications: Current Medications Norepinephrine Bitartrate 8 mg (/ Dextrose) 258 mls @ 7.74 mls/hr IV .Q24H PRN ; Protocol; 4 MCG/MIN PRN Reason: TITRATE PER MD ORDER Last Admin: 11/10/17 16:41 Dose: 11.62 mcg/min, 22.5 mls/hr Meropenem 500 mg/ Sodium (Chloride) 100 mls @ 100 mls/hr IVPB QAM JAQUELINE PRN Reason: Protocol Insulin Aspart (Novolog) 0 unit SC Q6H JAQUELINE PRN Reason: Protocol Pantoprazole Sodium (Protonix Inj) 40 mg IVP DAILY JAQUELINE Results - Vital Signs Recent Vital Signs: Last Vital Signs Temp Pulse 82 11/10/17 16:41 Resp 28 H 11/10/17 16:35 BP 95/53 L 11/10/17 16:41 Pulse Ox 98 11/10/17 16:35 - Labs Result Diagrams: 11/10/17 16:02 11/10/17 17:37 Labs: Laboratory Results - last 24 hr 11/10/17 11/10/17 11/10/17 16:02 17:37 17:37 WBC 13.1 H RBC 3.33 L Hgb 10.8 L Hct 31.2 L MCV 93.8 MCH 32.6 H MCHC 34.7 RDW 16.4 H Plt Count 145 MPV 10.0 Neut % (Auto) 73.3 Lymph % (Auto) 4.6 L [place] % (Auto) 21.8 H Eos % (Auto) 0.2 Baso % (Auto) 0.1 Neut # (Auto) 9.6 H Lymph # (Auto) 0.6 L [place] # (Auto) 2.8 H Eos # (Auto) 0.0 Baso # (Auto) 0.0 Neutrophils % (Manual) 77 H Band Neutrophils % 6 H Lymphocytes % (Manual) 6 L Monocytes % (Manual) 11 H Platelet Estimate Normal Large Platelets Present Hypochromasia (manual) Slight Poikilocytosis (manual Slight Anisocytosis (manual) Slight Microcytosis (manual) Slight Macrocytosis (manual) Slight Target Cells Slight PT INR APTT Fibrinogen Sodium 142 Potassium 3.9 Chloride 111 H Carbon Dioxide 13 L Anion Gap 22 H BUN 89 H Creatinine 6.6 H Est GFR ( Amer) 10 Est GFR (Non-Af Amer) 8 POC Glucose (mg/dL) Random Glucose 117 H Lactic Acid 1.2 Calcium 6.7 L Phosphorus 7.2 H Magnesium 1.9 Total Bilirubin 37.8 H AST 81 H ALT 70 Alkaline Phosphatase 327 H Ammonia Troponin I 0.0210 NT-Pro-B Natriuret Pep 97754 H Total Protein 6.5 Albumin 2.9 L Globulin 3.6 Albumin/Globulin Ratio 0.8 L Urine Color Urine Clarity Urine pH Ur Specific [place] Urine Protein Urine Glucose (UA) Urine Ketones Urine Blood Urine Nitrate Urine Bilirubin Urine Urobilinogen Ur Leukocyte Esterase Urine WBC (Auto) Urine RBC (Auto) Ur Squamous Epith Cells Amorphous Sediment Urine Bacteria Random Vancomycin Blood Type Antibody Screen 11/10/17 11/10/17 11/10/17 17:37 17:37 17:37 WBC RBC Hgb Hct MCV MCH MCHC RDW Plt Count MPV Neut % (Auto) Lymph % (Auto) [place] % (Auto) Eos % (Auto) Baso % (Auto) Neut # (Auto) Lymph # (Auto) [place] # (Auto) Eos # (Auto) Baso # (Auto) Neutrophils % (Manual) Band Neutrophils % Lymphocytes % (Manual) Monocytes % (Manual) Platelet Estimate Large Platelets Hypochromasia (manual) Poikilocytosis (manual Anisocytosis (manual) Microcytosis (manual) Macrocytosis (manual) Target Cells PT 13.8 H INR 1.3 APTT 30 Fibrinogen 219 Sodium Potassium Chloride Carbon Dioxide Anion Gap BUN Creatinine Est GFR ( Amer) Est GFR (Non-Af Amer) POC Glucose (mg/dL) Random Glucose Lactic Acid Calcium Phosphorus Magnesium Total Bilirubin AST ALT Alkaline Phosphatase Ammonia 38 H Troponin I NT-Pro-B Natriuret Pep Total Protein Albumin Globulin Albumin/Globulin Ratio Urine Color Urine Clarity Urine pH Ur Specific [place] Urine Protein Urine Glucose (UA) Urine Ketones Urine Blood Urine Nitrate Urine Bilirubin Urine Urobilinogen Ur Leukocyte Esterase Urine WBC (Auto) Urine RBC (Auto) Ur Squamous Epith Cells Amorphous Sediment Urine Bacteria Random Vancomycin Blood Type O POSITIVE Antibody Screen Negative 11/10/17 11/10/17 11/10/17 17:37 17:44 18:20 WBC RBC Hgb Hct MCV MCH MCHC RDW Plt Count MPV Neut % (Auto) Lymph % (Auto) [place] % (Auto) Eos % (Auto) Baso % (Auto) Neut # (Auto) Lymph # (Auto) [place] # (Auto) Eos # (Auto) Baso # (Auto) Neutrophils % (Manual) Band Neutrophils % Lymphocytes % (Manual) Monocytes % (Manual) Platelet Estimate Large Platelets Hypochromasia (manual) Poikilocytosis (manual Anisocytosis (manual) Microcytosis (manual) Macrocytosis (manual) Target Cells PT INR APTT Fibrinogen Sodium Potassium Chloride Carbon Dioxide Anion Gap BUN Creatinine Est GFR ( Amer) Est GFR (Non-Af Amer) POC Glucose (mg/dL) 102 Random Glucose Lactic Acid Calcium Phosphorus Magnesium Total Bilirubin AST ALT Alkaline Phosphatase Ammonia Troponin I NT-Pro-B Natriuret Pep Total Protein Albumin Globulin Albumin/Globulin Ratio Urine Color [place] Urine Clarity Hazy Urine pH 5.0 Ur Specific [place] 1.016 Urine Protein 2+ H Urine Glucose (UA) 1+ H Urine Ketones Negative Urine Blood 3+ H Urine Nitrate Negative Urine Bilirubin 2+ H Urine Urobilinogen 2.0 Ur Leukocyte Esterase 2+ H Urine WBC (Auto) 6 H Urine RBC (Auto) 551 H Ur Squamous Epith Cells 2 Amorphous Sediment Rare H Urine Bacteria Occ H Random Vancomycin 6.2 Blood Type Antibody Screen
[2017-11-10] MEDS: Sodium Bicarbonate 8.4% 150 MEQ in Dextrose 5% In Water 1,000 ML IV SCH (21:00)
[2017-11-10] MEDS: Vasopressin 40 UNITS in Dextrose 5% In Water 38 ML IV SCH (21:36)
[2017-11-10] MEDS: (Novolog) Insulin Aspart, Recombinant 100 u/ml 10 ml vial SC SCH (23:21)
--- NOTE | 2017-11-11 05:53 | CP.PCM.CON ---
History of Present Illness - History of Present Illness History of Present Illness: CC hypotension HPI 77 year old male with past medical history significant for Obstructive Jaundice, Atrial Fibrillation, CHF, GI Bleed and History of Pancreatic mass presents via transfer from [place] for dialysis. Patient was previously being managed at [facility] for acute renal failure and jaundice. Earlier today, patient had a dialysis catheter placed in preparation for urgent dialysis. Patient states that his symptoms started back in October of this year when he noticed that his urine was a darkened color. He states that he followed up with his primary medical doctor who began a workup soon afterwards . Patient states that he has had a yellow tinge to his skin for approximately the past two weeks. Patient followed up with GI and had MRCP performed with findings which could not rule out pancreatic or biliary mass involvement. Patient was to go for outpatient ERCP on November 08, 2017 ; however became hypotensive and was thus sent to the ED at [place] for further evaluation and workup requiring critical care as well as surgical and GI involvement. Patient states that his main complaints are back pain and pruritus. Patient denies chest pain, palpitations, nausea, vomiting or headaches at this time. Past Patient History - Infectious Disease Hx of Infectious Diseases: None - Tetanus Immunizations Tetanus Immunization: Unknown - Past Medical History & Family History Past Medical History?: Yes - Past Social History Smoking Status: Current Some Days Smoker - CARDIAC Hx Cardiac Disorders: Yes Hx Cardia Arrhythmia: Yes Hx Circulatory Problems: No Hx Congestive Heart Failure: Yes Hx Heart Murmur: No Hx Heart Transplant: No Hx Hypercholesterolemia: Yes Hx Hypertension: Yes Hx Internal Defibrillator: No Hx Mitral Valve Prolapse: No Hx Pacemaker: No Hx Peripheral Edema: No Hx Peripheral Vascular Disease: No - PULMONARY Hx Respiratory Disorders: No Hx Asthma: No Hx Bronchitis: No Hx Chronic Obstructive Pulmonary Disease (COPD): No Hx Emphysema: No Hx Pneumonia: No Hx Respiratory Aspiration: No Hx Respiratory Tract Infection: No Hx Sleep Apnea: No Hx Tuberculosis: No - NEUROLOGICAL Hx Neurological Disorder: No Hx Alzheimer's Disease: No HX Cerebrovascular Accident: No Hx Dementia: No Hx Dizziness: No Hx Meningitis: No Hx Migraine: No Hx Parkinson's Disease: No Hx Seizures: No Hx Transient Ischemic Attacks (TIA): No - HEENT Hx HEENT Problems: No - RENAL Hx Chronic Kidney Disease: No - ENDOCRINE/METABOLIC Hx Endocrine Disorders: No - HEMATOLOGICAL/ONCOLOGICAL Hx Blood Disorders: No Hx AIDS: No Hx Anemia: No Hx Cancer: No Hx Chemotherapy: No Hx Cirrhosis: No Hx Hepatitis A: No Hx Hepatitis B: No Hx Hepatitis C: No Hx Human Immunodeficiency Virus (HIV): No Hx Metastesis: No Hx Shingles: No Hx Unexplained Bleeding: No - INTEGUMENTARY Hx Dermatological Problems: No - MUSCULOSKELETAL/RHEUMATOLOGICAL Hx Musculoskeletal Disorders: Yes Hx Arthritis: No Hx Back Pain: No Hx Degenerative Joint Disease: No Hx Falls: No Hx Fractures: No Hx Gout: No Hx Herniated Disk: No Hx Myasthenia Gravis: No Hx Osteoarthritis: Yes Hx Osteomyelitis: No Hx Osteoporosis: No Hx Rhabdomyolysis: No Hx Spinal Stenosis: No Hx Unsteady Gait: No - GASTROINTESTINAL Hx Gastrointestinal Disorders: Yes Hx Colostomy: No Hx Crohn's Disease: No Hx Diverticulitis: No Hx Gall Bladder Disease: Yes Hx Gastroesophageal Reflux: No Hx Ileostomy: No Hx Liver Failure: No Hx Pancreatitis: No HX Swallowing Problems: No Hx Ulcer: No - GENITOURINARY/GYNECOLOGICAL Hx Genitourinary Disorders: No - PSYCHIATRIC Hx Psychophysiologic Disorder: No Hx Substance Use: No - SURGICAL HISTORY Hx Surgeries: No Hx Amputation: No Hx Appendectomy: No Hx Cardiac Catheterization: Yes Hx Cholecystectomy: No Hx Coronary Stent: No Hx Gastric Bypass Surgery: No Hx Hysterectomy: No Hx Joint Replacement: No Hx Kidney Transplant: No Hx Liver Transplant: No Hx Mastectomy: No Hx Musculoskeletal Surgery: No Hx Open Heart Surgery: No Hx Orthopedic Surgery: No Hx Splenectomy: No Hx Valve Replacement: No - ANESTHESIA Hx Anesthesia Reactions: No Hx Malignant Hyperthermia: No Meds Allergies/Adverse Reactions: Allergies Allergy/AdvReac Type Severity Reaction Status Date / Time aspirin Allergy ANAPHYLAXIS Verified 11/08/17 14:49 Penicillins Allergy PT DOES Verified 11/08/17 14:49 NOT REMEMBER THE REACTION - Medications Medications: Current Medications Norepinephrine Bitartrate 8 mg (/ Dextrose) 258 mls @ 7.74 mls/hr IV .Q24H PRN ; Protocol; 4 MCG/MIN PRN Reason: TITRATE PER MD ORDER Last Titration: 11/10/17 17:00 Dose: 19.37 mcg/min, 37.5 mls/hr Meropenem 500 mg/ Sodium (Chloride) 100 mls @ 100 mls/hr IVPB QAM JAQUELINE PRN Reason: Protocol Sodium Bicarbonate 150 meq/ (Dextrose) 1,150 mls @ 42 mls/hr IV .Q24H JAQUELINE Last Admin: 11/10/17 21:00 Dose: 42 mls/hr Vasopressin 40 units/ Dextrose 40 mls @ 2.4 mls/hr IV .[id number] JAQUELINE; 0.04 UNITS/ MIN PRN Reason: Protocol Last Admin: 11/10/17 21:36 Dose: 0.04 units/min, 2.4 mls/hr Insulin Aspart (Novolog) 0 unit SC Q6H JAQUELINE PRN Reason: Protocol Last Admin: 11/10/17 23:21 Dose: Not Given Pantoprazole Sodium (Protonix Inj) 40 mg IVP DAILY [facility] Results - Vital Signs Recent Vital Signs: Last Vital Signs Temp 97.7 F 11/11/17 00:00 Pulse 106 H 11/11/17 04:15 Resp 24 11/11/17 04:15 BP 100/65 11/11/17 04:11 Pulse Ox 97 11/11/17 04:15 - Labs Result Diagrams: 11/10/17 16:02 11/10/17 17:37 Labs: Laboratory Results - last 24 hr 11/10/17 11/10/17 11/10/17 16:02 17:37 17:37 WBC 13.1 H RBC 3.33 L Hgb 10.8 L Hct 31.2 L MCV 93.8 MCH 32.6 H MCHC 34.7 RDW 16.4 H Plt Count 145 MPV 10.0 Neut % (Auto) 73.3 Lymph % (Auto) 4.6 L [place] % (Auto) 21.8 H Eos % (Auto) 0.2 Baso % (Auto) 0.1 Neut # (Auto) 9.6 H Lymph # (Auto) 0.6 L [place] # (Auto) 2.8 H Eos # (Auto) 0.0 Baso # (Auto) 0.0 Neutrophils % (Manual) 77 H Band Neutrophils % 6 H Lymphocytes % (Manual) 6 L Monocytes % (Manual) 11 H Platelet Estimate Normal Large Platelets Present Hypochromasia (manual) Slight Poikilocytosis (manual Slight Anisocytosis (manual) Slight Microcytosis (manual) Slight Macrocytosis (manual) Slight Target Cells Slight PT INR APTT Fibrinogen Sodium 142 Potassium 3.9 Chloride 111 H Carbon Dioxide 13 L Anion Gap 22 H BUN 89 H Creatinine 6.6 H Est GFR ( Amer) 10 Est GFR (Non-Af Amer) 8 POC Glucose (mg/dL) Random Glucose 117 H Lactic Acid 1.2 Calcium 6.7 L Phosphorus 7.2 H Magnesium 1.9 Total Bilirubin 37.8 H AST 81 H ALT 70 Alkaline Phosphatase 327 H Ammonia Troponin I 0.0210 NT-Pro-B Natriuret Pep 79328 H Total Protein 6.5 Albumin 2.9 L Globulin 3.6 Albumin/Globulin Ratio 0.8 L Urine Color Urine Clarity Urine pH Ur Specific [place] Urine Protein Urine Glucose (UA) Urine Ketones Urine Blood Urine Nitrate Urine Bilirubin Urine Urobilinogen Ur Leukocyte Esterase Urine WBC (Auto) Urine RBC (Auto) Ur Squamous Epith Cells Amorphous Sediment Urine Bacteria Random Vancomycin Blood Type Antibody Screen 11/10/17 11/10/17 11/10/17 17:37 17:37 17:37 WBC RBC Hgb Hct MCV MCH MCHC RDW Plt Count MPV Neut % (Auto) Lymph % (Auto) [place] % (Auto) Eos % (Auto) Baso % (Auto) Neut # (Auto) Lymph # (Auto) [place] # (Auto) Eos # (Auto) Baso # (Auto) Neutrophils % (Manual) Band Neutrophils % Lymphocytes % (Manual) Monocytes % (Manual) Platelet Estimate Large Platelets Hypochromasia (manual) Poikilocytosis (manual Anisocytosis (manual) Microcytosis (manual) Macrocytosis (manual) Target Cells PT 13.8 H INR 1.3 APTT 30 Fibrinogen 219 Sodium Potassium Chloride Carbon Dioxide Anion Gap BUN Creatinine Est GFR ( Amer) Est GFR (Non-Af Amer) POC Glucose (mg/dL) Random Glucose Lactic Acid Calcium Phosphorus Magnesium Total Bilirubin AST ALT Alkaline Phosphatase Ammonia 38 H Troponin I NT-Pro-B Natriuret Pep Total Protein Albumin Globulin Albumin/Globulin Ratio Urine Color Urine Clarity Urine pH Ur Specific [place] Urine Protein Urine Glucose (UA) Urine Ketones Urine Blood Urine Nitrate Urine Bilirubin Urine Urobilinogen Ur Leukocyte Esterase Urine WBC (Auto) Urine RBC (Auto) Ur Squamous Epith Cells Amorphous Sediment Urine Bacteria Random Vancomycin Blood Type O POSITIVE Antibody Screen Negative 11/10/17 11/10/17 11/10/17 17:37 17:44 18:20 WBC RBC Hgb Hct MCV MCH MCHC RDW Plt Count MPV Neut % (Auto) Lymph % (Auto) [place] % (Auto) Eos % (Auto) Baso % (Auto) Neut # (Auto) Lymph # (Auto) [place] # (Auto) Eos # (Auto) Baso # (Auto) Neutrophils % (Manual) Band Neutrophils % Lymphocytes % (Manual) Monocytes % (Manual) Platelet Estimate Large Platelets Hypochromasia (manual) Poikilocytosis (manual Anisocytosis (manual) Microcytosis (manual) Macrocytosis (manual) Target Cells PT INR APTT Fibrinogen Sodium Potassium Chloride Carbon Dioxide Anion Gap BUN Creatinine Est GFR ( Amer) Est GFR (Non-Af Amer) POC Glucose (mg/dL) 102 Random Glucose Lactic Acid Calcium Phosphorus Magnesium Total Bilirubin AST ALT Alkaline Phosphatase Ammonia Troponin I NT-Pro-B Natriuret Pep Total Protein Albumin Globulin Albumin/Globulin Ratio Urine Color Nancy Urine Clarity Hazy Urine pH 5.0 Ur Specific [place] 1.016 Urine Protein 2+ H Urine Glucose (UA) 1+ H Urine Ketones Negative Urine Blood 3+ H Urine Nitrate Negative Urine Bilirubin 2+ H Urine Urobilinogen 2.0 Ur Leukocyte Esterase 2+ H Urine WBC (Auto) 6 H Urine RBC (Auto) 551 H Ur Squamous Epith Cells 2 Amorphous Sediment Rare H Urine Bacteria Occ H Random Vancomycin 6.2 Blood Type Antibody Screen 11/10/17 11/10/17 11/10/17 19:48 19:48 23:17 WBC RBC Hgb Hct MCV MCH MCHC RDW Plt Count MPV Neut % (Auto) Lymph % (Auto) [place] % (Auto) Eos % (Auto) Baso % (Auto) Neut # (Auto) Lymph # (Auto) [place] # (Auto) Eos # (Auto) Baso # (Auto) Neutrophils % (Manual) Band Neutrophils % Lymphocytes % (Manual) Monocytes % (Manual) Platelet Estimate Large Platelets Hypochromasia (manual) Poikilocytosis (manual Anisocytosis (manual) Microcytosis (manual) Macrocytosis (manual) Target Cells PT INR APTT Fibrinogen Sodium Potassium Chloride Carbon Dioxide Anion Gap BUN Creatinine Est GFR ( Amer) Est GFR (Non-Af Amer) POC Glucose (mg/dL) 108 Random Glucose Lactic Acid 0.9 Calcium Phosphorus Magnesium Total Bilirubin AST ALT Alkaline Phosphatase Ammonia Troponin I 0.0220 NT-Pro-B Natriuret Pep Total Protein Albumin Globulin Albumin/Globulin Ratio Urine Color Urine Clarity Urine pH Ur Specific [place] Urine Protein Urine Glucose (UA) Urine Ketones Urine Blood Urine Nitrate Urine Bilirubin Urine Urobilinogen Ur Leukocyte Esterase Urine WBC (Auto) Urine RBC (Auto) Ur Squamous Epith Cells Amorphous Sediment Urine Bacteria Random Vancomycin Blood Type Antibody Screen Assessment & Plan - Assessment and Plan (Free Text) Assessment: Hypotension ? etiol: Sepsis v Cardiogenic Chronic atrial fibrillation Obstructive jaundice Ureteral stone Pancreatic mass-r/o Ca of Pancreas Acute renal failure Hx of GI bleed Anemia Plan: Panculture-ID on board Repeat ECHO Cont pressors Cont hemodialysis
[2017-11-11] MEDS: (Novolog) Insulin Aspart, Recombinant 100 u/ml 10 ml vial SC SCH ×4 (06:24→23:58)
[2017-11-11 06:25] LABS: HEMOGLOBIN 11.3 g/dL (12.0-18.0); LYMPH # 7.2 K/uL (1.0-4.3); LYMPH % 34.3 % (20.0-40.0); MEAN CELL VOLUME 93.6 fL (80.0-94.0); MEAN CORPUSCULAR HEMOGLOBIN 32.9 pg (27.0-31.0); MEAN CORPUSCULAR HGB CONC 35.1 g/dL (33.0-37.0); MEAN PLATELET VOLUME 9.8 fL (7.2-11.7); MONO # 2.9 K/uL (0.0-0.8); MONO % 13.9 % (0.0-10.0); NEUT # 10.9 K/uL (1.8-7.0); NEUT % 51.8 % (50.0-75.0); RBC 3.45 Mil/uL (4.40-5.90); RED CELL DISTRIBUTION WIDTH 16.3 % (11.5-14.5); WHITE BLOOD COUNT 21.1 K/uL (4.8-10.8)
[2017-11-11 06:33] LABS: INR 1.3; PROTHROMBIN TIME 13.9 SECONDS (9.7-12.2)
[2017-11-11 06:54] LABS: ALB/GLOB RATIO 0.8 (1.0-2.1); CALCIUM 6.9 mg/dl (8.6-10.4)
[2017-11-11 08:18] LABS: CREATININE, RANDOM URINE 106.1 mg/dL
[2017-11-11] MEDS: Meropenem 500 MG in Sodium Chloride 0.9% 100 ML IVPB SCH (10:41)
--- NOTE | 2017-11-11 10:50 | US ---
HISTORY: gall bladder COMPARISON: None. TECHNIQUE: Sonographic evaluation of the abdomen. FINDINGS: LIVER: Enlarged, measuring 23.6 cm. Increased echogenicity of the liver parenchyma. No mass. [id number] bile duct dilatation. GALLBLADDER: Cholelithiasis with mild gallbladder wall thickening. Sonographic Shafer sign was not elicited. COMMON BILE DUCT: Dilated correlation 14 mm. PANCREAS: Not well-visualized RIGHT KIDNEY: Measures 11.6 x 6.7 x 5.5cm. Normal echogenicity. No calculus, mass, or hydronephrosis. LEFT KIDNEY: Measures 10.6 x 5.7 x 4.8cm. Normal echogenicity. No calculus, mass, or hydronephrosis. SPLEEN: Normal in size and contour. No mass. AORTA: No aneurysmal dilatation. IVC: Unremarkable. OTHER FINDINGS: None. IMPRESSION: Hepatomegaly with steatosis. Cholelithiasis with mild gallbladder wall thickening. Sonographic Shafer's sign was not elicited. Findings are equivocal for acute cholecystitis. Nuclear medicine HIDA scan can be obtained to evaluate cystic duct patency. Intra and extrahepatic biliary ductal dilatation for which choledocholithiasis cannot be excluded. ERCP/MRCP can be obtained for further evaluation.
--- NOTE | 2017-11-11 12:20 | CP.PCM.PN ---
Subjective - Date & Time of Evaluation Date of Evaluation: 11/11/17 Time of Evaluation: 12:16 - Subjective Subjective: Nephrology Consultation Note Assessment: critical oligoanuric MACIE likely due to ATN due to shock with ? sepsis ? bile cast nephropathy. other possible causes may include hepato-renal, recent IV contrast exposure HAGMA obstructive jaundice HTN, CHF, A fib, morbd obesity moderate TR left 2 cm adrenal adenoma Pancreatic mass hyperphosphatemia Anemia Plan renal replacement therapy initiation d/w patient/family and ICU team, all agreeable. pt had consented. discussed pros and cons of HD. plan for HD today maintain hemodynamics stable. avoid hypotension monitor I/O daily weights and renal function with BMP supplement bicarb added phoslo GI following work up for adrenal mass later as outpt once stable Dose meds/antibiotics for reduced GFR <10. Avoid fleets enema/magnesium based laxatives. Avoid nephrotoxins/NSAIDs/ iodinated contrast (unless needed emergently) Glycemic control, Further work up for as per primary team. Thanks for allowing me to participate in care of your patient. will follow with you. Please call if any Qs. had d/w family and team Dr Jairo [place] Office: [phone] CC: tiredness low BP reason for consult: MACIE HPI: Pt is a 77 y/o M with hx of HTN, CHF, A fib, morbd obesity recently diagnosed with jaundice and undergoing work up for it, so far suggestive of pancreatic mass, admitted to [facility] with MACIE, decreased urine output and rise in bili, he was found to have hypotension prior to ERCP hence was transferred to [place]. Pt had dialysis catheter placed and transferred to [facility] for dialysis initiation renal consult for MACIE management. pt feels ill and tired. has decresaed appetite. no aware about kidney disease in past says not making much urine no OTC/nsaids/herba meds CT with contrast done 10/30 evening. cr 10/31 AM 1.0 low BP noted, pt requiring pressors ROS: he denies SOB/chest pain/nausea/vomitting. rest all other neg except as mentioned in HPI Physical Examination: General Appearance: Comfortable, co-operative. mild tachypenoea. bit sleepy today Vitals reviewed and noted as below Head; Atraumatic, normocephalic ENT: no ulcers no thrush. Tongue is midline/moist. Oropharynx: no rash or ulcers. EYES: Pupils are equal, round and reactive to light accommodation. Eye muscles and extraocular movement intact. Sclera is icteric. Neck; supple no lymphadenopathy, no thyromegaly or bruit Lungs: Increased respiratory rate/effort. Breath sounds appears clear b/l anteriorly Heart: Normal rate. s1s2 normal. No rub or gallop. Extremities: 1+ edema. No varicose veins Neurological: Patient is alert, awake, oriented x 3 follows commands, no focal deifict. NO ASTERIXIS Skin: dry and warm. Normal turgor. No rash. Palpitation: Normal elasticity for age. grossly yellow Abdomen: Abdomen is soft non tender no apparent organomegaly Psych: normal insight. has normal affect and mood MSK: no specific joint tenderness or swelling. Digits and nails normal, no deformity : kidney not palpable. bladder not distended . has siu Labs/imaging/EKG reviewed. Past medical history, past surgical history, social history, allergy reviewed and noted as below Family hx; no hx of CKD. rest non contributory work up: left adrenal 2 cm adenoma moderate TR and mildly reduced LVEF UA 100 prot and GNR Bilirubin 36 Objective - Vital Signs/Intake and Output Vital Signs (last 24 hours): Temp Pulse Resp BP Pulse Ox 97.8 F 94 H 18 93/56 L 97 11/11/17 08:00 11/11/17 10:15 11/11/17 10:15 11/11/17 10:11 11/11/17 10:15 Intake and Output: 11/11/17 11/11/17 06:59 18:59 Intake Total 956.6 327.6 Output Total 110 35 Balance 846.6 292.6 - Medications Medications: Current Medications Calcium Acetate (Phoslo) 1,334 mg PO TIDCC [facility] Last Admin: 11/11/17 11:40 Dose: Not Given Hydrocortisone Sodium Succinate (Solu-Cortef) 50 mg IV Q8 [facility] Norepinephrine Bitartrate 8 mg (/ Dextrose) 258 mls @ 7.74 mls/hr IV .Q24H PRN ; Protocol; 4 MCG/MIN PRN Reason: TITRATE PER MD ORDER Last Admin: 11/11/17 09:08 Dose: 19.37 mcg/min, 37.5 mls/hr Meropenem 500 mg/ Sodium (Chloride) 100 mls @ 100 mls/hr IVPB QAM JAQUELINE PRN Reason: Protocol Last Admin: 11/11/17 10:41 Dose: 100 mls/hr Sodium Bicarbonate 150 meq/ (Dextrose) 1,150 mls @ 42 mls/hr IV .Q24H JAQUELINE Last Admin: 11/10/17 21:00 Dose: 42 mls/hr Vasopressin 40 units/ Dextrose 40 mls @ 2.4 mls/hr IV .[id number] JAQUELINE; 0.04 UNITS/ MIN PRN Reason: Protocol Last Admin: 11/10/17 21:36 Dose: 0.04 units/min, 2.4 mls/hr Insulin Aspart (Novolog) 0 unit SC Q6H JAQUELINE PRN Reason: Protocol Last Admin: 11/11/17 06:24 Dose: Not Given Pantoprazole Sodium (Protonix Inj) 40 mg IVP DAILY [facility] Last Admin: 11/11/17 10:42 Dose: 40 mg Vitamin B Complex/Vit C/Folic Acid (Nephro-Ken) 1 tab PO 0800 [facility] - Labs Labs: 11/11/17 06:15 11/11/17 06:15 PT 13.9 SECONDS (9.7-12.2) H 11/11/17 06:15 INR 1.3 11/11/17 06:15 APTT 30 SECONDS (21-34) 11/10/17 17:37
--- NOTE | 2017-11-11 12:55 | CP.CCUPN ---
CCU Subjective - Physician Review Subjective (Free Text): 11/11/17 12:45 Pt seen and examined at bedside this am. No acute events overnight. Pt denies having any CP, SOB, abd pain, N/V, F/C. C/O diarrhea. Patient continues to be hypotensive currently on Levophed and vasopressin. Patient producing only minimal urine dark in color. Input 1085, output 145. Positive balance 940. CCU Objective - Vital Signs / Intake & Output Vital Signs (Last 4 hours): Vital Signs Pulse Resp BP Pulse Ox 11/11/17 10:15 94 H 18 97 11/11/17 10:11 101 H 21 93/56 L 97 11/11/17 10:00 94 H 17 97 11/11/17 09:55 92 H 19 86/55 L 97 11/11/17 09:45 106 H 18 94 L 11/11/17 09:41 90 17 85/42 L 97 11/11/17 09:30 99 H 19 95 11/11/17 09:15 98 H 18 96 11/11/17 09:11 123 H 19 85/43 L 91 L 11/11/17 09:08 94 H 16 88/59 L 96 11/11/17 09:00 94 H 18 96 11/11/17 08:56 84 17 88/59 L 97 Intake and Output (Last 8hrs): Intake & Output 11/10/17 11/11/17 11/11/17 22:59 06:59 14:59 Intake Total 280.9 804.2 327.6 Output Total 55 90 35 Balance 225.9 714.2 292.6 Weight 318 lb 12.8 oz 319 lb 3.36 oz Intake: IV 31 485 Intake, IV Amount 249.9 319.2 327.6 Willis port of HD cath 159.6 IV port of HD cath 168 Right Medial Port 247.5 300.0 Internal Jugular Right Proximal Port 2.4 19.2 Internal Jugular Oral 0 Output: Urine 25 70 35 Urethral (Macias) 25 70 35 Stool 30 20 Other: Voiding Method Indwelling Catheter # Bowel Movements 1 1 0 - Physical Exam Head: Positive for: Atraumatic, Normocephalic Conjunctiva: Positive for: Icteric Mouth: Positive for: Moist Mucous Membranes Respiratory/Chest: Positive for: Clear to Auscultation. Negative for: Respiratory Distress, Accessory Muscle Use, Wheezes, Rales, Rhonchi Cardiovascular: Positive for: Regular Rate and Rhythm, Normal S1, S2 Abdomen: Positive for: Normal Bowel Sounds. Negative for: Tenderness, Distention, Peritoneal Signs, Guarding, Mass/Organomegaly Lower Extremity: Positive for: Edema (2+ B/L ). Negative for: CALF TENDERNESS Neurological: Positive for: GCS=15, Speech Normal, Memory Normal Skin: Positive for: Other (Jaundinced) Psychiatric: Positive for: Alert, Oriented x 3, Normal Insight, Normal Concentration - Medications Active Medications: Active Medications Generic Name Dose Route Start Last Admin Trade Name Freq PRN Reason Stop Dose Admin Calcium Acetate 1,334 mg 11/11/17 12:00 11/11/17 11:40 Phoslo PO Not Given TIDCC JAQUELINE Hydrocortisone Sodium Succinate 50 mg 11/11/17 11:45 11/11/17 12:32 Solu-Cortef IV 50 mg Q8 JAQUELINE Administration Norepinephrine Bitartrate 8 mg 258 mls @ 7.74 mls/hr 11/10/17 16:04 11/11/17 09:08 / Dextrose IV 19.37 mcg/min .Q24H PRN 37.5 mls/hr TITRATE PER MD ORDER Administration Protocol 4 MCG/MIN Meropenem 500 mg/ Sodium 100 mls @ 100 mls/hr 11/11/17 10:00 11/11/17 10:41 Chloride IVPB 100 mls/hr QAM JAQUELINE Administration Protocol Sodium Bicarbonate 150 meq/ 1,150 mls @ 42 mls/hr 11/10/17 20:30 11/10/17 21: 00 Dextrose IV 42 mls/hr .Q24H JAQUELINE Administration Vasopressin 40 units/ Dextrose 40 mls @ 2.4 mls/hr 11/10/17 21:30 11/10/17 21 :36 IV 0.04 units/min .[id number] JAQUELINE 2.4 mls/hr Protocol Administration 0.04 UNITS/MIN Insulin Aspart 0 unit 11/11/17 00:00 11/11/17 12:32 Novolog SC Not Given Q6H JAQUELINE Protocol Pantoprazole Sodium 40 mg 11/11/17 10:00 11/11/17 10:42 Protonix Inj IVP 40 mg DAILY JAQUELINE Administration Vitamin B Complex/Vit C/Folic Acid 1 tab 11/12/17 08:00 Nephro-Ken PO 0800 [facility] - Patient Studies Lab Studies: Microbiology Studies 11/10/17 17:37 MRSA Culture (Admit) - Final Nose MRSA NOT DETECTED Lab Studies 11/11/17 11/11/17 11/11/17 Range/Units 12:24 06:15 06:15 WBC (4.8-10.8) K/uL RBC (4.40-5.90) Mil/uL Hgb (12.0-18.0) g/dL Hct (35.0-51.0) % MCV (80.0-94.0) fL MCH (27.0-31.0) pg MCHC (33.0-37.0) g/dL RDW (11.5-14.5) % Plt Count (130-400) K/uL MPV (7.2-11.7) fL Neut % (Auto) (50.0-75.0) % Lymph % (Auto) (20.0-40.0) % [place] % (Auto) (0.0-10.0) % Eos % (Auto) (0.0-4.0) % Baso % (Auto) (0.0-2.0) % Neut # (Auto) (1.8-7.0) K/uL Lymph # (Auto) (1.0-4.3) K/uL [place] # (Auto) (0.0-0.8) K/uL Eos # (Auto) (0.0-0.7) K/uL Baso # (Auto) (0.0-0.2) K/uL Neutrophils % (Manual) (50-75) % Band Neutrophils % (0-2) % Lymphocytes % (Manual) (20-40) % Monocytes % (Manual) (0-10) % Differential Comment Platelet Estimate (NORMAL) Large Platelets Hypochromasia (manual) Poikilocytosis (manual Anisocytosis (manual) Microcytosis (manual) Macrocytosis (manual) Target Cells PT 13.9 H (9.7-12.2) SECONDS INR 1.3 APTT (21-34) SECONDS Fibrinogen (200-400) mg/dL Sodium 143 (132-148) mmol/L Potassium 4.1 (3.6-5.2) mmol/L Chloride 110 H (98-107) mmol/L Carbon Dioxide 13 L (22-30) mmol/L Anion Gap 24 H (10-20) BUN 96 H (9-20) mg/dL Creatinine 7.3 H (0.8-1.5) mg/dL Est GFR ( Amer) 9 Est GFR (Non-Af Amer) 7 POC Glucose (mg/dL) 153 H (65-110) mg/dL Random Glucose 135 H (75-110) mg/dL Lactic Acid (0.7-2.1) mmol/L Calcium 6.9 L (8.6-10.4) mg/dl Phosphorus 8.0 H (2.5-4.5) mg/dL Magnesium 1.9 (1.6-2.3) mg/dL Total Bilirubin 37.6 H (0.2-1.3) mg/dL AST 78 H (17-59) U/L ALT 74 H (21-72) U/L Alkaline Phosphatase 346 H (38-126) U/L Ammonia (9-33) umol/L Troponin I (0.00-0.120) ng/mL NT-Pro-B Natriuret Pep (0-900) pg/mL Total Protein 6.9 (6.3-8.3) g/dL Albumin 3.0 L (3.5-5.0) g/dL Globulin 3.9 (2.2-3.9) gm/dL Albumin/Globulin Ratio 0.8 L (1.0-2.1) Urine Color (YELLOW) Urine Clarity (Clear) Urine pH (5.0-8.0) Ur Specific [place] (1.003-1.030) Urine Protein (NEGATIVE) mg/dL Urine Glucose (UA) (Normal) mg/dL Urine Ketones (NEGATIVE) mg/dL Urine Blood (NEGATIVE) Urine Nitrate (NEGATIVE) Urine Bilirubin (NEGATIVE) Urine Urobilinogen (0.2-1.0) mg/dL Ur Leukocyte Esterase (Negative) Rhys/uL Urine WBC (Auto) (0-5) /hpf Urine RBC (Auto) (0-3) /hpf Ur Squamous Epith Cells (0-5) /hpf Amorphous Sediment (<OCC) /ul Urine Bacteria (<OCC) Ur Random Creatinine mg/dL Ur Random Sodium mmol/L Random Vancomycin ug/mL Blood Type Antibody Screen 11/11/17 11/11/17 11/11/17 Range/Units 06:15 06:15 06:15 WBC 21.1 H D (4.8-10.8) K/uL RBC 3.45 L (4.40-5.90) Mil/uL Hgb 11.3 L (12.0-18.0) g/dL Hct 32.3 L (35.0-51.0) % MCV 93.6 (80.0-94.0) fL MCH 32.9 H (27.0-31.0) pg MCHC 35.1 (33.0-37.0) g/dL RDW 16.3 H (11.5-14.5) % Plt Count 163 (130-400) K/uL MPV 9.8 (7.2-11.7) fL Neut % (Auto) 51.8 (50.0-75.0) % Lymph % (Auto) 34.3 (20.0-40.0) % [place] % (Auto) 13.9 H (0.0-10.0) % Eos % (Auto) 0.0 (0.0-4.0) % Baso % (Auto) 0.0 (0.0-2.0) % Neut # (Auto) 10.9 H (1.8-7.0) K/uL Lymph # (Auto) 7.2 H (1.0-4.3) K/uL [place] # (Auto) 2.9 H (0.0-0.8) K/uL Eos # (Auto) 0.0 (0.0-0.7) K/uL Baso # (Auto) 0.0 (0.0-0.2) K/uL Neutrophils % (Manual) (50-75) % Band Neutrophils % (0-2) % Lymphocytes % (Manual) (20-40) % Monocytes % (Manual) (0-10) % Differential Comment Platelet Estimate (NORMAL) Large Platelets Hypochromasia (manual) Poikilocytosis (manual Anisocytosis (manual) Microcytosis (manual) Macrocytosis (manual) Target Cells PT (9.7-12.2) SECONDS INR APTT (21-34) SECONDS Fibrinogen (200-400) mg/dL Sodium (132-148) mmol/L Potassium (3.6-5.2) mmol/L Chloride (98-107) mmol/L Carbon Dioxide (22-30) mmol/L Anion Gap (10-20) BUN (9-20) mg/dL Creatinine (0.8-1.5) mg/dL Est GFR ( Amer) Est GFR (Non-Af Amer) POC Glucose (mg/dL) (65-110) mg/dL Random Glucose (75-110) mg/dL Lactic Acid 0.9 (0.7-2.1) mmol/L Calcium (8.6-10.4) mg/dl Phosphorus (2.5-4.5) mg/dL Magnesium (1.6-2.3) mg/dL Total Bilirubin (0.2-1.3) mg/dL AST (17-59) U/L ALT (21-72) U/L Alkaline Phosphatase (38-126) U/L Ammonia (9-33) umol/L Troponin I 0.0270 (0.00-0.120) ng/mL NT-Pro-B Natriuret Pep (0-900) pg/mL Total Protein (6.3-8.3) g/dL Albumin (3.5-5.0) g/dL Globulin (2.2-3.9) gm/dL Albumin/Globulin Ratio (1.0-2.1) Urine Color (YELLOW) Urine Clarity (Clear) Urine pH (5.0-8.0) Ur Specific [place] (1.003-1.030) Urine Protein (NEGATIVE) mg/dL Urine Glucose (UA) (Normal) mg/dL Urine Ketones (NEGATIVE) mg/dL Urine Blood (NEGATIVE) Urine Nitrate (NEGATIVE) Urine Bilirubin (NEGATIVE) Urine Urobilinogen (0.2-1.0) mg/dL Ur Leukocyte Esterase (Negative) Rhys/uL Urine WBC (Auto) (0-5) /hpf Urine RBC (Auto) (0-3) /hpf Ur Squamous Epith Cells (0-5) /hpf Amorphous Sediment (<OCC) /ul Urine Bacteria (<OCC) Ur Random Creatinine mg/dL Ur Random Sodium mmol/L Random Vancomycin ug/mL Blood Type Antibody Screen 11/11/17 11/10/17 11/10/17 Range/Units 05:50 23:55 23:17 WBC (4.8-10.8) K/uL RBC (4.40-5.90) Mil/uL Hgb (12.0-18.0) g/dL Hct (35.0-51.0) % MCV (80.0-94.0) fL MCH (27.0-31.0) pg MCHC (33.0-37.0) g/dL RDW (11.5-14.5) % Plt Count (130-400) K/uL MPV (7.2-11.7) fL Neut % (Auto) (50.0-75.0) % Lymph % (Auto) (20.0-40.0) % [place] % (Auto) (0.0-10.0) % Eos % (Auto) (0.0-4.0) % Baso % (Auto) (0.0-2.0) % Neut # (Auto) (1.8-7.0) K/uL Lymph # (Auto) (1.0-4.3) K/uL [place] # (Auto) (0.0-0.8) K/uL Eos # (Auto) (0.0-0.7) K/uL Baso # (Auto) (0.0-0.2) K/uL Neutrophils % (Manual) (50-75) % Band Neutrophils % (0-2) % Lymphocytes % (Manual) (20-40) % Monocytes % (Manual) (0-10) % Differential Comment Platelet Estimate (NORMAL) Large Platelets Hypochromasia (manual) Poikilocytosis (manual Anisocytosis (manual) Microcytosis (manual) Macrocytosis (manual) Target Cells PT (9.7-12.2) SECONDS INR APTT (21-34) SECONDS Fibrinogen (200-400) mg/dL Sodium (132-148) mmol/L Potassium (3.6-5.2) mmol/L Chloride (98-107) mmol/L Carbon Dioxide (22-30) mmol/L Anion Gap (10-20) BUN (9-20) mg/dL Creatinine (0.8-1.5) mg/dL Est GFR ( Amer) Est GFR (Non-Af Amer) POC Glucose (mg/dL) 148 H 108 (65-110) mg/dL Random Glucose (75-110) mg/dL Lactic Acid (0.7-2.1) mmol/L Calcium (8.6-10.4) mg/dl Phosphorus (2.5-4.5) mg/dL Magnesium (1.6-2.3) mg/dL Total Bilirubin (0.2-1.3) mg/dL AST (17-59) U/L ALT (21-72) U/L Alkaline Phosphatase (38-126) U/L Ammonia (9-33) umol/L Troponin I (0.00-0.120) ng/mL NT-Pro-B Natriuret Pep (0-900) pg/mL Total Protein (6.3-8.3) g/dL Albumin (3.5-5.0) g/dL Globulin (2.2-3.9) gm/dL Albumin/Globulin Ratio (1.0-2.1) Urine Color (YELLOW) Urine Clarity (Clear) Urine pH (5.0-8.0) Ur Specific [place] (1.003-1.030) Urine Protein (NEGATIVE) mg/dL Urine Glucose (UA) (Normal) mg/dL Urine Ketones (NEGATIVE) mg/dL Urine Blood (NEGATIVE) Urine Nitrate (NEGATIVE) Urine Bilirubin (NEGATIVE) Urine Urobilinogen (0.2-1.0) mg/dL Ur Leukocyte Esterase (Negative) Rhys/uL Urine WBC (Auto) (0-5) /hpf Urine RBC (Auto) (0-3) /hpf Ur Squamous Epith Cells (0-5) /hpf Amorphous Sediment (<OCC) /ul Urine Bacteria (<OCC) Ur Random Creatinine 106.1 mg/dL Ur Random Sodium 31 mmol/L Random Vancomycin ug/mL Blood Type Antibody Screen 11/10/17 11/10/17 11/10/17 Range/Units 19:48 19:48 18:20 WBC (4.8-10.8) K/uL RBC (4.40-5.90) Mil/uL Hgb (12.0-18.0) g/dL Hct (35.0-51.0) % MCV (80.0-94.0) fL MCH (27.0-31.0) pg MCHC (33.0-37.0) g/dL RDW (11.5-14.5) % Plt Count (130-400) K/uL MPV (7.2-11.7) fL Neut % (Auto) (50.0-75.0) % Lymph % (Auto) (20.0-40.0) % [place] % (Auto) (0.0-10.0) % Eos % (Auto) (0.0-4.0) % Baso % (Auto) (0.0-2.0) % Neut # (Auto) (1.8-7.0) K/uL Lymph # (Auto) (1.0-4.3) K/uL [place] # (Auto) (0.0-0.8) K/uL Eos # (Auto) (0.0-0.7) K/uL Baso # (Auto) (0.0-0.2) K/uL Neutrophils % (Manual) (50-75) % Band Neutrophils % (0-2) % Lymphocytes % (Manual) (20-40) % Monocytes % (Manual) (0-10) % Differential Comment Platelet Estimate (NORMAL) Large Platelets Hypochromasia (manual) Poikilocytosis (manual Anisocytosis (manual) Microcytosis (manual) Macrocytosis (manual) Target Cells PT (9.7-12.2) SECONDS INR APTT (21-34) SECONDS Fibrinogen (200-400) mg/dL Sodium (132-148) mmol/L Potassium (3.6-5.2) mmol/L Chloride (98-107) mmol/L Carbon Dioxide (22-30) mmol/L Anion Gap (10-20) BUN (9-20) mg/dL Creatinine (0.8-1.5) mg/dL Est GFR ( Amer) Est GFR (Non-Af Amer) POC Glucose (mg/dL) (65-110) mg/dL Random Glucose (75-110) mg/dL Lactic Acid 0.9 (0.7-2.1) mmol/L Calcium (8.6-10.4) mg/dl Phosphorus (2.5-4.5) mg/dL Magnesium (1.6-2.3) mg/dL Total Bilirubin (0.2-1.3) mg/dL AST (17-59) U/L ALT (21-72) U/L Alkaline Phosphatase (38-126) U/L Ammonia (9-33) umol/L Troponin I 0.0220 (0.00-0.120) ng/mL NT-Pro-B Natriuret Pep (0-900) pg/mL Total Protein (6.3-8.3) g/dL Albumin (3.5-5.0) g/dL Globulin (2.2-3.9) gm/dL Albumin/Globulin Ratio (1.0-2.1) Urine Color Nancy (YELLOW) Urine Clarity Hazy (Clear) Urine pH 5.0 (5.0-8.0) Ur Specific [place] 1.016 (1.003-1.030) Urine Protein 2+ H (NEGATIVE) mg/dL Urine Glucose (UA) 1+ H (Normal) mg/dL Urine Ketones Negative (NEGATIVE) mg/dL Urine Blood 3+ H (NEGATIVE) Urine Nitrate Negative (NEGATIVE) Urine Bilirubin 2+ H (NEGATIVE) Urine Urobilinogen 2.0 (0.2-1.0) mg/dL Ur Leukocyte Esterase 2+ H (Negative) Rhys/uL Urine WBC (Auto) 6 H (0-5) /hpf Urine RBC (Auto) 551 H (0-3) /hpf Ur Squamous Epith Cells 2 (0-5) /hpf Amorphous Sediment Rare H (<OCC) /ul Urine Bacteria Occ H (<OCC) Ur Random Creatinine mg/dL Ur Random Sodium mmol/L Random Vancomycin ug/mL Blood Type Antibody Screen 11/10/17 11/10/17 11/10/17 Range/Units 17:44 17:37 17:37 WBC (4.8-10.8) K/uL RBC (4.40-5.90) Mil/uL Hgb (12.0-18.0) g/dL Hct (35.0-51.0) % MCV (80.0-94.0) fL MCH (27.0-31.0) pg MCHC (33.0-37.0) g/dL RDW (11.5-14.5) % Plt Count (130-400) K/uL MPV (7.2-11.7) fL Neut % (Auto) (50.0-75.0) % Lymph % (Auto) (20.0-40.0) % [place] % (Auto) (0.0-10.0) % Eos % (Auto) (0.0-4.0) % Baso % (Auto) (0.0-2.0) % Neut # (Auto) (1.8-7.0) K/uL Lymph # (Auto) (1.0-4.3) K/uL [place] # (Auto) (0.0-0.8) K/uL Eos # (Auto) (0.0-0.7) K/uL Baso # (Auto) (0.0-0.2) K/uL Neutrophils % (Manual) (50-75) % Band Neutrophils % (0-2) % Lymphocytes % (Manual) (20-40) % Monocytes % (Manual) (0-10) % Differential Comment Platelet Estimate (NORMAL) Large Platelets Hypochromasia (manual) Poikilocytosis (manual Anisocytosis (manual) Microcytosis (manual) Macrocytosis (manual) Target Cells PT (9.7-12.2) SECONDS INR APTT (21-34) SECONDS Fibrinogen (200-400) mg/dL Sodium (132-148) mmol/L Potassium (3.6-5.2) mmol/L Chloride (98-107) mmol/L Carbon Dioxide (22-30) mmol/L Anion Gap (10-20) BUN (9-20) mg/dL Creatinine (0.8-1.5) mg/dL Est GFR ( Amer) Est GFR (Non-Af Amer) POC Glucose (mg/dL) 102 (65-110) mg/dL Random Glucose (75-110) mg/dL Lactic Acid (0.7-2.1) mmol/L Calcium (8.6-10.4) mg/dl Phosphorus (2.5-4.5) mg/dL Magnesium (1.6-2.3) mg/dL Total Bilirubin (0.2-1.3) mg/dL AST (17-59) U/L ALT (21-72) U/L Alkaline Phosphatase (38-126) U/L Ammonia 38 H (9-33) umol/L Troponin I (0.00-0.120) ng/mL NT-Pro-B Natriuret Pep (0-900) pg/mL Total Protein (6.3-8.3) g/dL Albumin (3.5-5.0) g/dL Globulin (2.2-3.9) gm/dL Albumin/Globulin Ratio (1.0-2.1) Urine Color (YELLOW) Urine Clarity (Clear) Urine pH (5.0-8.0) Ur Specific [place] (1.003-1.030) Urine Protein (NEGATIVE) mg/dL Urine Glucose (UA) (Normal) mg/dL Urine Ketones (NEGATIVE) mg/dL Urine Blood (NEGATIVE) Urine Nitrate (NEGATIVE) Urine Bilirubin (NEGATIVE) Urine Urobilinogen (0.2-1.0) mg/dL Ur Leukocyte Esterase (Negative) Rhys/uL Urine WBC (Auto) (0-5) /hpf Urine RBC (Auto) (0-3) /hpf Ur Squamous Epith Cells (0-5) /hpf Amorphous Sediment (<OCC) /ul Urine Bacteria (<OCC) Ur Random Creatinine mg/dL Ur Random Sodium mmol/L Random Vancomycin 6.2 ug/mL Blood Type Antibody Screen 11/10/17 11/10/17 11/10/17 Range/Units 17:37 17:37 17:37 WBC (4.8-10.8) K/uL RBC (4.40-5.90) Mil/uL Hgb (12.0-18.0) g/dL Hct (35.0-51.0) % MCV (80.0-94.0) fL MCH (27.0-31.0) pg MCHC (33.0-37.0) g/dL RDW (11.5-14.5) % Plt Count (130-400) K/uL MPV (7.2-11.7) fL Neut % (Auto) (50.0-75.0) % Lymph % (Auto) (20.0-40.0) % [place] % (Auto) (0.0-10.0) % Eos % (Auto) (0.0-4.0) % Baso % (Auto) (0.0-2.0) % Neut # (Auto) (1.8-7.0) K/uL Lymph # (Auto) (1.0-4.3) K/uL [place] # (Auto) (0.0-0.8) K/uL Eos # (Auto) (0.0-0.7) K/uL Baso # (Auto) (0.0-0.2) K/uL Neutrophils % (Manual) (50-75) % Band Neutrophils % (0-2) % Lymphocytes % (Manual) (20-40) % Monocytes % (Manual) (0-10) % Differential Comment Platelet Estimate (NORMAL) Large Platelets Hypochromasia (manual) Poikilocytosis (manual Anisocytosis (manual) Microcytosis (manual) Macrocytosis (manual) Target Cells PT 13.8 H (9.7-12.2) SECONDS INR 1.3 APTT 30 (21-34) SECONDS Fibrinogen 219 (200-400) mg/dL Sodium (132-148) mmol/L Potassium (3.6-5.2) mmol/L Chloride (98-107) mmol/L Carbon Dioxide (22-30) mmol/L Anion Gap (10-20) BUN (9-20) mg/dL Creatinine (0.8-1.5) mg/dL Est GFR ( Amer) Est GFR (Non-Af Amer) POC Glucose (mg/dL) (65-110) mg/dL Random Glucose (75-110) mg/dL Lactic Acid 1.2 (0.7-2.1) mmol/L Calcium (8.6-10.4) mg/dl Phosphorus (2.5-4.5) mg/dL Magnesium (1.6-2.3) mg/dL Total Bilirubin (0.2-1.3) mg/dL AST (17-59) U/L ALT (21-72) U/L Alkaline Phosphatase (38-126) U/L Ammonia (9-33) umol/L Troponin I (0.00-0.120) ng/mL NT-Pro-B Natriuret Pep (0-900) pg/mL Total Protein (6.3-8.3) g/dL Albumin (3.5-5.0) g/dL Globulin (2.2-3.9) gm/dL Albumin/Globulin Ratio (1.0-2.1) Urine Color (YELLOW) Urine Clarity (Clear) Urine pH (5.0-8.0) Ur Specific [place] (1.003-1.030) Urine Protein (NEGATIVE) mg/dL Urine Glucose (UA) (Normal) mg/dL Urine Ketones (NEGATIVE) mg/dL Urine Blood (NEGATIVE) Urine Nitrate (NEGATIVE) Urine Bilirubin (NEGATIVE) Urine Urobilinogen (0.2-1.0) mg/dL Ur Leukocyte Esterase (Negative) Rhys/uL Urine WBC (Auto) (0-5) /hpf Urine RBC (Auto) (0-3) /hpf Ur Squamous Epith Cells (0-5) /hpf Amorphous Sediment (<OCC) /ul Urine Bacteria (<OCC) Ur Random Creatinine mg/dL Ur Random Sodium mmol/L Random Vancomycin ug/mL Blood Type O POSITIVE Antibody Screen Negative 11/10/17 11/10/17 Range/Units 17:37 16:02 WBC 13.1 H (4.8-10.8) K/uL RBC 3.33 L (4.40-5.90) Mil/uL Hgb 10.8 L (12.0-18.0) g/dL Hct 31.2 L (35.0-51.0) % MCV 93.8 (80.0-94.0) fL MCH 32.6 H (27.0-31.0) pg MCHC 34.7 (33.0-37.0) g/dL RDW 16.4 H (11.5-14.5) % Plt Count 145 (130-400) K/uL MPV 10.0 (7.2-11.7) fL Neut % (Auto) 73.3 (50.0-75.0) % Lymph % (Auto) 4.6 L (20.0-40.0) % [place] % (Auto) 21.8 H (0.0-10.0) % Eos % (Auto) 0.2 (0.0-4.0) % Baso % (Auto) 0.1 (0.0-2.0) % Neut # (Auto) 9.6 H (1.8-7.0) K/uL Lymph # (Auto) 0.6 L (1.0-4.3) K/uL [place] # (Auto) 2.8 H (0.0-0.8) K/uL Eos # (Auto) 0.0 (0.0-0.7) K/uL Baso # (Auto) 0.0 (0.0-0.2) K/uL Neutrophils % (Manual) 77 H (50-75) % Band Neutrophils % 6 H (0-2) % Lymphocytes % (Manual) 6 L (20-40) % Monocytes % (Manual) 11 H (0-10) % Differential Comment Platelet Estimate Normal (NORMAL) Large Platelets Present Hypochromasia (manual) Slight Poikilocytosis (manual Slight Anisocytosis (manual) Slight Microcytosis (manual) Slight Macrocytosis (manual) Slight Target Cells Slight PT (9.7-12.2) SECONDS INR APTT (21-34) SECONDS Fibrinogen (200-400) mg/dL Sodium 142 (132-148) mmol/L Potassium 3.9 (3.6-5.2) mmol/L Chloride 111 H (98-107) mmol/L Carbon Dioxide 13 L (22-30) mmol/L Anion Gap 22 H (10-20) BUN 89 H (9-20) mg/dL Creatinine 6.6 H (0.8-1.5) mg/dL Est GFR ( Amer) 10 Est GFR (Non-Af Amer) 8 POC Glucose (mg/dL) (65-110) mg/dL Random Glucose 117 H (75-110) mg/dL Lactic Acid (0.7-2.1) mmol/L Calcium 6.7 L (8.6-10.4) mg/dl Phosphorus 7.2 H (2.5-4.5) mg/dL Magnesium 1.9 (1.6-2.3) mg/dL Total Bilirubin 37.8 H (0.2-1.3) mg/dL AST 81 H (17-59) U/L ALT 70 (21-72) U/L Alkaline Phosphatase 327 H (38-126) U/L Ammonia (9-33) umol/L Troponin I 0.0210 (0.00-0.120) ng/mL NT-Pro-B Natriuret Pep 06789 H (0-900) pg/mL Total Protein 6.5 (6.3-8.3) g/dL Albumin 2.9 L (3.5-5.0) g/dL Globulin 3.6 (2.2-3.9) gm/dL Albumin/Globulin Ratio 0.8 L (1.0-2.1) Urine Color (YELLOW) Urine Clarity (Clear) Urine pH (5.0-8.0) Ur Specific [place] (1.003-1.030) Urine Protein (NEGATIVE) mg/dL Urine Glucose (UA) (Normal) mg/dL Urine Ketones (NEGATIVE) mg/dL Urine Blood (NEGATIVE) Urine Nitrate (NEGATIVE) Urine Bilirubin (NEGATIVE) Urine Urobilinogen (0.2-1.0) mg/dL Ur Leukocyte Esterase (Negative) Rhys/uL Urine WBC (Auto) (0-5) /hpf Urine RBC (Auto) (0-3) /hpf Ur Squamous Epith Cells (0-5) /hpf Amorphous Sediment (<OCC) /ul Urine Bacteria (<OCC) Ur Random Creatinine mg/dL Ur Random Sodium mmol/L Random Vancomycin ug/mL Blood Type Antibody Screen Laboratory Results - last 24 hr 11/10/17 11/10/17 11/10/17 16:02 17:37 17:37 WBC 13.1 H RBC 3.33 L Hgb 10.8 L Hct 31.2 L MCV 93.8 MCH 32.6 H MCHC 34.7 RDW 16.4 H Plt Count 145 MPV 10.0 Neut % (Auto) 73.3 Lymph % (Auto) 4.6 L [place] % (Auto) 21.8 H Eos % (Auto) 0.2 Baso % (Auto) 0.1 Neut # (Auto) 9.6 H Lymph # (Auto) 0.6 L [place] # (Auto) 2.8 H Eos # (Auto) 0.0 Baso # (Auto) 0.0 Neutrophils % (Manual) 77 H Band Neutrophils % 6 H Lymphocytes % (Manual) 6 L Monocytes % (Manual) 11 H Differential Comment Platelet Estimate Normal Large Platelets Present Hypochromasia (manual) Slight Poikilocytosis (manual Slight Anisocytosis (manual) Slight Microcytosis (manual) Slight Macrocytosis (manual) Slight Target Cells Slight PT INR APTT Fibrinogen Sodium 142 Potassium 3.9 Chloride 111 H Carbon Dioxide 13 L Anion Gap 22 H BUN 89 H Creatinine 6.6 H Est GFR ( Amer) 10 Est GFR (Non-Af Amer) 8 POC Glucose (mg/dL) Random Glucose 117 H Lactic Acid 1.2 Calcium 6.7 L Phosphorus 7.2 H Magnesium 1.9 Total Bilirubin 37.8 H AST 81 H ALT 70 Alkaline Phosphatase 327 H Ammonia Troponin I 0.0210 NT-Pro-B Natriuret Pep 22844 H Total Protein 6.5 Albumin 2.9 L Globulin 3.6 Albumin/Globulin Ratio 0.8 L Urine Color Urine Clarity Urine pH Ur Specific [place] Urine Protein Urine Glucose (UA) Urine Ketones Urine Blood Urine Nitrate Urine Bilirubin Urine Urobilinogen Ur Leukocyte Esterase Urine WBC (Auto) Urine RBC (Auto) Ur Squamous Epith Cells Amorphous Sediment Urine Bacteria Ur Random Creatinine Ur Random Sodium Random Vancomycin Blood Type Antibody Screen 11/10/17 11/10/17 11/10/17 17:37 17:37 17:37 WBC RBC Hgb Hct MCV MCH MCHC RDW Plt Count MPV Neut % (Auto) Lymph % (Auto) [place] % (Auto) Eos % (Auto) Baso % (Auto) Neut # (Auto) Lymph # (Auto) [place] # (Auto) Eos # (Auto) Baso # (Auto) Neutrophils % (Manual) Band Neutrophils % Lymphocytes % (Manual) Monocytes % (Manual) Differential Comment Platelet Estimate Large Platelets Hypochromasia (manual) Poikilocytosis (manual Anisocytosis (manual) Microcytosis (manual) Macrocytosis (manual) Target Cells PT 13.8 H INR 1.3 APTT 30 Fibrinogen 219 Sodium Potassium Chloride Carbon Dioxide Anion Gap BUN Creatinine Est GFR ( Amer) Est GFR (Non-Af Amer) POC Glucose (mg/dL) Random Glucose Lactic Acid Calcium Phosphorus Magnesium Total Bilirubin AST ALT Alkaline Phosphatase Ammonia 38 H Troponin I NT-Pro-B Natriuret Pep Total Protein Albumin Globulin Albumin/Globulin Ratio Urine Color Urine Clarity Urine pH Ur Specific [place] Urine Protein Urine Glucose (UA) Urine Ketones Urine Blood Urine Nitrate Urine Bilirubin Urine Urobilinogen Ur Leukocyte Esterase Urine WBC (Auto) Urine RBC (Auto) Ur Squamous Epith Cells Amorphous Sediment Urine Bacteria Ur Random Creatinine Ur Random Sodium Random Vancomycin Blood Type O POSITIVE Antibody Screen Negative 11/10/17 11/10/17 11/10/17 17:37 17:44 18:20 WBC RBC Hgb Hct MCV MCH MCHC RDW Plt Count MPV Neut % (Auto) Lymph % (Auto) [place] % (Auto) Eos % (Auto) Baso % (Auto) Neut # (Auto) Lymph # (Auto) [place] # (Auto) Eos # (Auto) Baso # (Auto) Neutrophils % (Manual) Band Neutrophils % Lymphocytes % (Manual) Monocytes % (Manual) Differential Comment Platelet Estimate Large Platelets Hypochromasia (manual) Poikilocytosis (manual Anisocytosis (manual) Microcytosis (manual) Macrocytosis (manual) Target Cells PT INR APTT Fibrinogen Sodium Potassium Chloride Carbon Dioxide Anion Gap BUN Creatinine Est GFR ( Amer) Est GFR (Non-Af Amer) POC Glucose (mg/dL) 102 Random Glucose Lactic Acid Calcium Phosphorus Magnesium Total Bilirubin AST ALT Alkaline Phosphatase Ammonia Troponin I NT-Pro-B Natriuret Pep Total Protein Albumin Globulin Albumin/Globulin Ratio Urine Color Nancy Urine Clarity Hazy Urine pH 5.0 Ur Specific [place] 1.016 Urine Protein 2+ H Urine Glucose (UA) 1+ H Urine Ketones Negative Urine Blood 3+ H Urine Nitrate Negative Urine Bilirubin 2+ H Urine Urobilinogen 2.0 Ur Leukocyte Esterase 2+ H Urine WBC (Auto) 6 H Urine RBC (Auto) 551 H Ur Squamous Epith Cells 2 Amorphous Sediment Rare H Urine Bacteria Occ H Ur Random Creatinine Ur Random Sodium Random Vancomycin 6.2 Blood Type Antibody Screen 11/10/17 11/10/17 11/10/17 19:48 19:48 23:17 WBC RBC Hgb Hct MCV MCH MCHC RDW Plt Count MPV Neut % (Auto) Lymph % (Auto) [place] % (Auto) Eos % (Auto) Baso % (Auto) Neut # (Auto) Lymph # (Auto) [place] # (Auto) Eos # (Auto) Baso # (Auto) Neutrophils % (Manual) Band Neutrophils % Lymphocytes % (Manual) Monocytes % (Manual) Differential Comment Platelet Estimate Large Platelets Hypochromasia (manual) Poikilocytosis (manual Anisocytosis (manual) Microcytosis (manual) Macrocytosis (manual) Target Cells PT INR APTT Fibrinogen Sodium Potassium Chloride Carbon Dioxide Anion Gap BUN Creatinine Est GFR ( Amer) Est GFR (Non-Af Amer) POC Glucose (mg/dL) 108 Random Glucose Lactic Acid 0.9 Calcium Phosphorus Magnesium Total Bilirubin AST ALT Alkaline Phosphatase Ammonia Troponin I 0.0220 NT-Pro-B Natriuret Pep Total Protein Albumin Globulin Albumin/Globulin Ratio Urine Color Urine Clarity Urine pH Ur Specific [place] Urine Protein Urine Glucose (UA) Urine Ketones Urine Blood Urine Nitrate Urine Bilirubin Urine Urobilinogen Ur Leukocyte Esterase Urine WBC (Auto) Urine RBC (Auto) Ur Squamous Epith Cells Amorphous Sediment Urine Bacteria Ur Random Creatinine Ur Random Sodium Random Vancomycin Blood Type Antibody Screen 11/10/17 11/11/17 11/11/17 23:55 05:50 06:15 WBC RBC Hgb Hct MCV MCH MCHC RDW Plt Count MPV Neut % (Auto) Lymph % (Auto) [place] % (Auto) Eos % (Auto) Baso % (Auto) Neut # (Auto) Lymph # (Auto) [place] # (Auto) Eos # (Auto) Baso # (Auto) Neutrophils % (Manual) Band Neutrophils % Lymphocytes % (Manual) Monocytes % (Manual) Differential Comment Platelet Estimate Large Platelets Hypochromasia (manual) Poikilocytosis (manual Anisocytosis (manual) Microcytosis (manual) Macrocytosis (manual) Target Cells PT INR APTT Fibrinogen Sodium Potassium Chloride Carbon Dioxide Anion Gap BUN Creatinine Est GFR ( Amer) Est GFR (Non-Af Amer) POC Glucose (mg/dL) 148 H Random Glucose Lactic Acid Calcium Phosphorus Magnesium Total Bilirubin AST ALT Alkaline Phosphatase Ammonia Troponin I 0.0270 NT-Pro-B Natriuret Pep Total Protein Albumin Globulin Albumin/Globulin Ratio Urine Color Urine Clarity Urine pH Ur Specific [place] Urine Protein Urine Glucose (UA) Urine Ketones Urine Blood Urine Nitrate Urine Bilirubin Urine Urobilinogen Ur Leukocyte Esterase Urine WBC (Auto) Urine RBC (Auto) Ur Squamous Epith Cells Amorphous Sediment Urine Bacteria Ur Random Creatinine 106.1 Ur Random Sodium 31 Random Vancomycin Blood Type Antibody Screen 11/11/17 11/11/17 11/11/17 06:15 06:15 06:15 WBC 21.1 H D RBC 3.45 L Hgb 11.3 L Hct 32.3 L MCV 93.6 MCH 32.9 H MCHC 35.1 RDW 16.3 H Plt Count 163 MPV 9.8 Neut % (Auto) 51.8 Lymph % (Auto) 34.3 [place] % (Auto) 13.9 H Eos % (Auto) 0.0 Baso % (Auto) 0.0 Neut # (Auto) 10.9 H Lymph # (Auto) 7.2 H [place] # (Auto) 2.9 H Eos # (Auto) 0.0 Baso # (Auto) 0.0 Neutrophils % (Manual) Band Neutrophils % Lymphocytes % (Manual) Monocytes % (Manual) Differential Comment Platelet Estimate Large Platelets Hypochromasia (manual) Poikilocytosis (manual Anisocytosis (manual) Microcytosis (manual) Macrocytosis (manual) Target Cells PT 13.9 H INR 1.3 APTT Fibrinogen Sodium Potassium Chloride Carbon Dioxide Anion Gap BUN Creatinine Est GFR ( Amer) Est GFR (Non-Af Amer) POC Glucose (mg/dL) Random Glucose Lactic Acid 0.9 Calcium Phosphorus Magnesium Total Bilirubin AST ALT Alkaline Phosphatase Ammonia Troponin I NT-Pro-B Natriuret Pep Total Protein Albumin Globulin Albumin/Globulin Ratio Urine Color Urine Clarity Urine pH Ur Specific [place] Urine Protein Urine Glucose (UA) Urine Ketones Urine Blood Urine Nitrate Urine Bilirubin Urine Urobilinogen Ur Leukocyte Esterase Urine WBC (Auto) Urine RBC (Auto) Ur Squamous Epith Cells Amorphous Sediment Urine Bacteria Ur Random Creatinine Ur Random Sodium Random Vancomycin Blood Type Antibody Screen 11/11/17 11/11/17 06:15 12:24 WBC RBC Hgb Hct MCV MCH MCHC RDW Plt Count MPV Neut % (Auto) Lymph % (Auto) [place] % (Auto) Eos % (Auto) Baso % (Auto) Neut # (Auto) Lymph # (Auto) [place] # (Auto) Eos # (Auto) Baso # (Auto) Neutrophils % (Manual) Band Neutrophils % Lymphocytes % (Manual) Monocytes % (Manual) Differential Comment Platelet Estimate Large Platelets Hypochromasia (manual) Poikilocytosis (manual Anisocytosis (manual) Microcytosis (manual) Macrocytosis (manual) Target Cells PT INR APTT Fibrinogen Sodium 143 Potassium 4.1 Chloride 110 H Carbon Dioxide 13 L Anion Gap 24 H BUN 96 H Creatinine 7.3 H Est GFR ( Amer) 9 Est GFR (Non-Af Amer) 7 POC Glucose (mg/dL) 153 H Random Glucose 135 H Lactic Acid Calcium 6.9 L Phosphorus 8.0 H Magnesium 1.9 Total Bilirubin 37.6 H AST 78 H ALT 74 H Alkaline Phosphatase 346 H Ammonia Troponin I NT-Pro-B Natriuret Pep Total Protein 6.9 Albumin 3.0 L Globulin 3.9 Albumin/Globulin Ratio 0.8 L Urine Color Urine Clarity Urine pH Ur Specific [place] Urine Protein Urine Glucose (UA) Urine Ketones Urine Blood Urine Nitrate Urine Bilirubin Urine Urobilinogen Ur Leukocyte Esterase Urine WBC (Auto) Urine RBC (Auto) Ur Squamous Epith Cells Amorphous Sediment Urine Bacteria Ur Random Creatinine Ur Random Sodium Random Vancomycin Blood Type Antibody Screen EKG/Cardiology Studies: Cardiology / EKG Studies 11/10/17 16:05 EKG [ELECTROCARDIOGRAM] Stat Comment: Mode Of Transportation: Reason For Exam: admission/sob Fingerstick Blood Sugar Results: 153 Review of Systems - Constitutional Constitutional: absent: Fever, Chills - EENT Eyes: absent: Blurred Vision, Change in Vision Nose/Mouth/Throat: absent: Nasal Congestion, Nasal Discharge - Cardiovascular Cardiovascular: absent: Chest Pain, Dyspnea, Edema, Leg Edema - Respiratory Respiratory: absent: Cough, Dyspnea, Dyspnea on Exertion, Wheezing - Gastrointestinal Gastrointestinal: Diarrhea. absent: Abdominal Pain, Constipation, Nausea, Vomiting - Genitourinary Genitourinary: absent: Dysuria, Urinary Frequency - Musculoskeletal Musculoskeletal: absent: Back Pain - Integumentary Integumentary: absent: Acne, Lesions Additional comments: jaundiced - Neurological Neurological: absent: Headaches, Weakness - Psychiatric Psychiatric: absent: Anxiety, Depression - Hematologic/Lymphatic Hematologic: absent: Easy Bleeding Critical Care Progress Note - Extremities/Vascular Does the Patient have a Central Venous Catheter?: Yes Insertion Site: Internal Jugular Vein Does the Patient need a Central Venous Catheter?: Yes (dialysis) Does the Patient have a Macias Catheter?: Yes Does the Patient need a Macias Catheter?: Yes - Prophylaxis GI Prophylaxis GI: PPI - Prophylaxis DVT Prophylaxis DVT: SCDs - Nutrition Nutrition: Nutrition Category Date Time Status NPO Diet [DIET] Diets 11/10/17 Lunch Active Assessment/Plan - Assessment and Plan (Free Text) Assessment: 77 year old male with past medical history of HTN, A fib, CHF is admitted for painless jaundice with T. Bili of 37.6 and MACIE in need for emergent dialysis. Patient was admitted to [facility] but due to need for emergent dialysis, was transferred to [facility]. Cardiology: - PMHx of A fib and CHF with EF of 40% on recent echo with global hypokenesis A. A fib - Currently rate controlled - Oral AC on hold for possible procedure A. CHF with EF of 40 % - [place] admission was 26098 - Patient currently hypotensive and in septic shock. Currently on Vassopressin and levophed Pulmonology - SOB likely 2/2 CHF exacerbation - CXR on 11/08 showed no active disease - Currently on NC GI A. Painless jaundice - T. Bili on admission was 37.6 - D. Bili 32.5. Alk phos 346. AST 78/ ALT 74 - MRCP done at [place] on 10/31 showed intra and extrahepatic biliary dilation with common bile duct measuring 17 mm in the seth hepatis - IR is consulted for emergent cholecystostomy tube to be placed today - GI, Dr. Neville consulted for ERCP - Surgery, Dr. Vaughn is consulted - Pt is hypotensive and currently on pressors. There is concern for ascending cholangitis. Pt afebrile. A&Ox 3. - Currently on Meropenem - Low urine outpt - Macias in place draining dark yellow urine. - Urinalysis on admission positive for blood and 551 RBC Renal A. MACIE on CKD stage IV - BUN/Cr: 96/7.3 - Pt will have HD today - RIJ trialysis cath inserted on 11/10/17 - Nephro, Dr. Carolina is consulted Heme/onc - Will check CEA and CA 19-9 for potential malignancy ID A. Septic shock - WBC count elevated at 21.1 - Hypotensive on levophed and vasopressin. Will start Solu-cortef - Repeat blood an durine cultures pending. - Initial urine culture on 11/08 was positive for gram - gasper. - Currently on Meropenem Prophylaxis - Protonix - SCDs - PT/OT Carl Vargas - Date & Time Date: 11/11/17 Time: 13:02
[2017-11-11] MEDS: Vasopressin 40 UNITS in Dextrose 5% In Water 38 ML IV SCH (13:16)
--- NOTE | 2017-11-11 13:28 | CP.PCM.CON ---
History of Present Illness - History of Present Illness History of Present Illness: dictated Past Patient History - Infectious Disease Hx of Infectious Diseases: None - Tetanus Immunizations Tetanus Immunization: Unknown - Past Medical History & Family History Past Medical History?: Yes - Past Social History Smoking Status: Current Some Days Smoker - CARDIAC Hx Cardiac Disorders: Yes Hx Cardia Arrhythmia: Yes Hx Circulatory Problems: No Hx Congestive Heart Failure: Yes Hx Heart Murmur: No Hx Heart Transplant: No Hx Hypercholesterolemia: Yes Hx Hypertension: Yes Hx Internal Defibrillator: No Hx Mitral Valve Prolapse: No Hx Pacemaker: No Hx Peripheral Edema: No Hx Peripheral Vascular Disease: No - PULMONARY Hx Respiratory Disorders: No Hx Asthma: No Hx Bronchitis: No Hx Chronic Obstructive Pulmonary Disease (COPD): No Hx Emphysema: No Hx Pneumonia: No Hx Respiratory Aspiration: No Hx Respiratory Tract Infection: No Hx Sleep Apnea: No Hx Tuberculosis: No - NEUROLOGICAL Hx Neurological Disorder: No Hx Alzheimer's Disease: No HX Cerebrovascular Accident: No Hx Dementia: No Hx Dizziness: No Hx Meningitis: No Hx Migraine: No Hx Parkinson's Disease: No Hx Seizures: No Hx Transient Ischemic Attacks (TIA): No - HEENT Hx HEENT Problems: No - RENAL Hx Chronic Kidney Disease: No - ENDOCRINE/METABOLIC Hx Endocrine Disorders: No - HEMATOLOGICAL/ONCOLOGICAL Hx Blood Disorders: No Hx AIDS: No Hx Anemia: No Hx Cancer: No Hx Chemotherapy: No Hx Cirrhosis: No Hx Hepatitis A: No Hx Hepatitis B: No Hx Hepatitis C: No Hx Human Immunodeficiency Virus (HIV): No Hx Metastesis: No Hx Shingles: No Hx Unexplained Bleeding: No - INTEGUMENTARY Hx Dermatological Problems: No - MUSCULOSKELETAL/RHEUMATOLOGICAL Hx Musculoskeletal Disorders: Yes Hx Arthritis: No Hx Back Pain: No Hx Degenerative Joint Disease: No Hx Falls: No Hx Fractures: No Hx Gout: No Hx Herniated Disk: No Hx Myasthenia Gravis: No Hx Osteoarthritis: Yes Hx Osteomyelitis: No Hx Osteoporosis: No Hx Rhabdomyolysis: No Hx Spinal Stenosis: No Hx Unsteady Gait: No - GASTROINTESTINAL Hx Gastrointestinal Disorders: Yes Hx Colostomy: No Hx Crohn's Disease: No Hx Diverticulitis: No Hx Gall Bladder Disease: Yes Hx Gastroesophageal Reflux: No Hx Ileostomy: No Hx Liver Failure: No Hx Pancreatitis: No HX Swallowing Problems: No Hx Ulcer: No - GENITOURINARY/GYNECOLOGICAL Hx Genitourinary Disorders: No - PSYCHIATRIC Hx Psychophysiologic Disorder: No Hx Substance Use: No - SURGICAL HISTORY Hx Surgeries: No Hx Amputation: No Hx Appendectomy: No Hx Cardiac Catheterization: Yes Hx Cholecystectomy: No Hx Coronary Stent: No Hx Gastric Bypass Surgery: No Hx Hysterectomy: No Hx Joint Replacement: No Hx Kidney Transplant: No Hx Liver Transplant: No Hx Mastectomy: No Hx Musculoskeletal Surgery: No Hx Open Heart Surgery: No Hx Orthopedic Surgery: No Hx Splenectomy: No Hx Valve Replacement: No - ANESTHESIA Hx Anesthesia Reactions: No Hx Malignant Hyperthermia: No Meds Allergies/Adverse Reactions: Allergies Allergy/AdvReac Type Severity Reaction Status Date / Time aspirin Allergy ANAPHYLAXIS Verified 11/08/17 14:49 Penicillins Allergy PT DOES Verified 11/08/17 14:49 NOT REMEMBER THE REACTION - Medications Medications: Current Medications Calcium Acetate (Phoslo) 1,334 mg PO TIDCC [facility] Last Admin: 11/11/17 11:40 Dose: Not Given Hydrocortisone Sodium Succinate (Solu-Cortef) 50 mg IV Q8 [facility] Last Admin: 11/11/17 12:32 Dose: 50 mg Norepinephrine Bitartrate 8 mg (/ Dextrose) 258 mls @ 7.74 mls/hr IV .Q24H PRN ; Protocol; 4 MCG/MIN PRN Reason: TITRATE PER MD ORDER Last Admin: 11/11/17 09:08 Dose: 19.37 mcg/min, 37.5 mls/hr Meropenem 500 mg/ Sodium (Chloride) 100 mls @ 100 mls/hr IVPB QAM [facility] PRN Reason: Protocol Last Admin: 11/11/17 10:41 Dose: 100 mls/hr Sodium Bicarbonate 150 meq/ (Dextrose) 1,150 mls @ 42 mls/hr IV .Q24H [facility] Last Admin: 11/10/17 21:00 Dose: 42 mls/hr Vasopressin 40 units/ Dextrose 40 mls @ 2.4 mls/hr IV .[id number] JAQUELINE; 0.04 UNITS/ MIN PRN Reason: Protocol Last Admin: 11/11/17 13:16 Dose: 0.04 units/min, 2.4 mls/hr Insulin Aspart (Novolog) 0 unit SC Q6H JAQUELINE PRN Reason: Protocol Last Admin: 11/11/17 12:32 Dose: Not Given Pantoprazole Sodium (Protonix Inj) 40 mg IVP DAILY [facility] Last Admin: 11/11/17 10:42 Dose: 40 mg Vitamin B Complex/Vit C/Folic Acid (Nephro-Ken) 1 tab PO 0800 JAQUELINE Results - Vital Signs Recent Vital Signs: Last Vital Signs Temp 97.8 F 11/11/17 08:00 Pulse 96 H 11/11/17 13:16 Resp 14 11/11/17 13:16 BP 91/57 L 11/11/17 13:16 Pulse Ox 96 11/11/17 13:16 - Labs Result Diagrams: 11/11/17 06:15 11/11/17 06:15 Labs: Laboratory Results - last 24 hr 11/10/17 11/10/17 11/10/17 16:02 17:37 17:37 WBC 13.1 H RBC 3.33 L Hgb 10.8 L Hct 31.2 L MCV 93.8 MCH 32.6 H MCHC 34.7 RDW 16.4 H Plt Count 145 MPV 10.0 Neut % (Auto) 73.3 Lymph % (Auto) 4.6 L [place] % (Auto) 21.8 H Eos % (Auto) 0.2 Baso % (Auto) 0.1 Neut # (Auto) 9.6 H Lymph # (Auto) 0.6 L [place] # (Auto) 2.8 H Eos # (Auto) 0.0 Baso # (Auto) 0.0 Neutrophils % (Manual) 77 H Band Neutrophils % 6 H Lymphocytes % (Manual) 6 L Monocytes % (Manual) 11 H Differential Comment Platelet Estimate Normal Large Platelets Present Hypochromasia (manual) Slight Poikilocytosis (manual Slight Anisocytosis (manual) Slight Microcytosis (manual) Slight Macrocytosis (manual) Slight Target Cells Slight PT INR APTT Fibrinogen Sodium 142 Potassium 3.9 Chloride 111 H Carbon Dioxide 13 L Anion Gap 22 H BUN 89 H Creatinine 6.6 H Est GFR ( Amer) 10 Est GFR (Non-Af Amer) 8 POC Glucose (mg/dL) Random Glucose 117 H Lactic Acid 1.2 Calcium 6.7 L Phosphorus 7.2 H Magnesium 1.9 Total Bilirubin 37.8 H AST 81 H ALT 70 Alkaline Phosphatase 327 H Ammonia Troponin I 0.0210 NT-Pro-B Natriuret Pep 40671 H Total Protein 6.5 Albumin 2.9 L Globulin 3.6 Albumin/Globulin Ratio 0.8 L Urine Color Urine Clarity Urine pH Ur Specific [place] Urine Protein Urine Glucose (UA) Urine Ketones Urine Blood Urine Nitrate Urine Bilirubin Urine Urobilinogen Ur Leukocyte Esterase Urine WBC (Auto) Urine RBC (Auto) Ur Squamous Epith Cells Amorphous Sediment Urine Bacteria Ur Random Creatinine Ur Random Sodium Random Vancomycin Blood Type Antibody Screen 11/10/17 11/10/17 11/10/17 17:37 17:37 17:37 WBC RBC Hgb Hct MCV MCH MCHC RDW Plt Count MPV Neut % (Auto) Lymph % (Auto) [place] % (Auto) Eos % (Auto) Baso % (Auto) Neut # (Auto) Lymph # (Auto) [place] # (Auto) Eos # (Auto) Baso # (Auto) Neutrophils % (Manual) Band Neutrophils % Lymphocytes % (Manual) Monocytes % (Manual) Differential Comment Platelet Estimate Large Platelets Hypochromasia (manual) Poikilocytosis (manual Anisocytosis (manual) Microcytosis (manual) Macrocytosis (manual) Target Cells PT 13.8 H INR 1.3 APTT 30 Fibrinogen 219 Sodium Potassium Chloride Carbon Dioxide Anion Gap BUN Creatinine Est GFR ( Amer) Est GFR (Non-Af Amer) POC Glucose (mg/dL) Random Glucose Lactic Acid Calcium Phosphorus Magnesium Total Bilirubin AST ALT Alkaline Phosphatase Ammonia 38 H Troponin I NT-Pro-B Natriuret Pep Total Protein Albumin Globulin Albumin/Globulin Ratio Urine Color Urine Clarity Urine pH Ur Specific [place] Urine Protein Urine Glucose (UA) Urine Ketones Urine Blood Urine Nitrate Urine Bilirubin Urine Urobilinogen Ur Leukocyte Esterase Urine WBC (Auto) Urine RBC (Auto) Ur Squamous Epith Cells Amorphous Sediment Urine Bacteria Ur Random Creatinine Ur Random Sodium Random Vancomycin Blood Type O POSITIVE Antibody Screen Negative 11/10/17 11/10/17 11/10/17 17:37 17:44 18:20 WBC RBC Hgb Hct MCV MCH MCHC RDW Plt Count MPV Neut % (Auto) Lymph % (Auto) [place] % (Auto) Eos % (Auto) Baso % (Auto) Neut # (Auto) Lymph # (Auto) [place] # (Auto) Eos # (Auto) Baso # (Auto) Neutrophils % (Manual) Band Neutrophils % Lymphocytes % (Manual) Monocytes % (Manual) Differential Comment Platelet Estimate Large Platelets Hypochromasia (manual) Poikilocytosis (manual Anisocytosis (manual) Microcytosis (manual) Macrocytosis (manual) Target Cells PT INR APTT Fibrinogen Sodium Potassium Chloride Carbon Dioxide Anion Gap BUN Creatinine Est GFR ( Amer) Est GFR (Non-Af Amer) POC Glucose (mg/dL) 102 Random Glucose Lactic Acid Calcium Phosphorus Magnesium Total Bilirubin AST ALT Alkaline Phosphatase Ammonia Troponin I NT-Pro-B Natriuret Pep Total Protein Albumin Globulin Albumin/Globulin Ratio Urine Color Nancy Urine Clarity Hazy Urine pH 5.0 Ur Specific [place] 1.016 Urine Protein 2+ H Urine Glucose (UA) 1+ H Urine Ketones Negative Urine Blood 3+ H Urine Nitrate Negative Urine Bilirubin 2+ H Urine Urobilinogen 2.0 Ur Leukocyte Esterase 2+ H Urine WBC (Auto) 6 H Urine RBC (Auto) 551 H Ur Squamous Epith Cells 2 Amorphous Sediment Rare H Urine Bacteria Occ H Ur Random Creatinine Ur Random Sodium Random Vancomycin 6.2 Blood Type Antibody Screen 11/10/17 11/10/17 11/10/17 19:48 19:48 23:17 WBC RBC Hgb Hct MCV MCH MCHC RDW Plt Count MPV Neut % (Auto) Lymph % (Auto) [place] % (Auto) Eos % (Auto) Baso % (Auto) Neut # (Auto) Lymph # (Auto) [place] # (Auto) Eos # (Auto) Baso # (Auto) Neutrophils % (Manual) Band Neutrophils % Lymphocytes % (Manual) Monocytes % (Manual) Differential Comment Platelet Estimate Large Platelets Hypochromasia (manual) Poikilocytosis (manual Anisocytosis (manual) Microcytosis (manual) Macrocytosis (manual) Target Cells PT INR APTT Fibrinogen Sodium Potassium Chloride Carbon Dioxide Anion Gap BUN Creatinine Est GFR ( Amer) Est GFR (Non-Af Amer) POC Glucose (mg/dL) 108 Random Glucose Lactic Acid 0.9 Calcium Phosphorus Magnesium Total Bilirubin AST ALT Alkaline Phosphatase Ammonia Troponin I 0.0220 NT-Pro-B Natriuret Pep Total Protein Albumin Globulin Albumin/Globulin Ratio Urine Color Urine Clarity Urine pH Ur Specific [place] Urine Protein Urine Glucose (UA) Urine Ketones Urine Blood Urine Nitrate Urine Bilirubin Urine Urobilinogen Ur Leukocyte Esterase Urine WBC (Auto) Urine RBC (Auto) Ur Squamous Epith Cells Amorphous Sediment Urine Bacteria Ur Random Creatinine Ur Random Sodium Random Vancomycin Blood Type Antibody Screen 11/10/17 11/11/17 11/11/17 23:55 05:50 06:15 WBC RBC Hgb Hct MCV MCH MCHC RDW Plt Count MPV Neut % (Auto) Lymph % (Auto) [place] % (Auto) Eos % (Auto) Baso % (Auto) Neut # (Auto) Lymph # (Auto) [place] # (Auto) Eos # (Auto) Baso # (Auto) Neutrophils % (Manual) Band Neutrophils % Lymphocytes % (Manual) Monocytes % (Manual) Differential Comment Platelet Estimate Large Platelets Hypochromasia (manual) Poikilocytosis (manual Anisocytosis (manual) Microcytosis (manual) Macrocytosis (manual) Target Cells PT INR APTT Fibrinogen Sodium Potassium Chloride Carbon Dioxide Anion Gap BUN Creatinine Est GFR ( Amer) Est GFR (Non-Af Amer) POC Glucose (mg/dL) 148 H Random Glucose Lactic Acid Calcium Phosphorus Magnesium Total Bilirubin AST ALT Alkaline Phosphatase Ammonia Troponin I 0.0270 NT-Pro-B Natriuret Pep Total Protein Albumin Globulin Albumin/Globulin Ratio Urine Color Urine Clarity Urine pH Ur Specific [place] Urine Protein Urine Glucose (UA) Urine Ketones Urine Blood Urine Nitrate Urine Bilirubin Urine Urobilinogen Ur Leukocyte Esterase Urine WBC (Auto) Urine RBC (Auto) Ur Squamous Epith Cells Amorphous Sediment Urine Bacteria Ur Random Creatinine 106.1 Ur Random Sodium 31 Random Vancomycin Blood Type Antibody Screen 11/11/17 11/11/17 11/11/17 06:15 06:15 06:15 WBC 21.1 H D RBC 3.45 L Hgb 11.3 L Hct 32.3 L MCV 93.6 MCH 32.9 H MCHC 35.1 RDW 16.3 H Plt Count 163 MPV 9.8 Neut % (Auto) 51.8 Lymph % (Auto) 34.3 [place] % (Auto) 13.9 H Eos % (Auto) 0.0 Baso % (Auto) 0.0 Neut # (Auto) 10.9 H Lymph # (Auto) 7.2 H [place] # (Auto) 2.9 H Eos # (Auto) 0.0 Baso # (Auto) 0.0 Neutrophils % (Manual) Band Neutrophils % Lymphocytes % (Manual) Monocytes % (Manual) Differential Comment Platelet Estimate Large Platelets Hypochromasia (manual) Poikilocytosis (manual Anisocytosis (manual) Microcytosis (manual) Macrocytosis (manual) Target Cells PT 13.9 H INR 1.3 APTT Fibrinogen Sodium Potassium Chloride Carbon Dioxide Anion Gap BUN Creatinine Est GFR ( Amer) Est GFR (Non-Af Amer) POC Glucose (mg/dL) Random Glucose Lactic Acid 0.9 Calcium Phosphorus Magnesium Total Bilirubin AST ALT Alkaline Phosphatase Ammonia Troponin I NT-Pro-B Natriuret Pep Total Protein Albumin Globulin Albumin/Globulin Ratio Urine Color Urine Clarity Urine pH Ur Specific [place] Urine Protein Urine Glucose (UA) Urine Ketones Urine Blood Urine Nitrate Urine Bilirubin Urine Urobilinogen Ur Leukocyte Esterase Urine WBC (Auto) Urine RBC (Auto) Ur Squamous Epith Cells Amorphous Sediment Urine Bacteria Ur Random Creatinine Ur Random Sodium Random Vancomycin Blood Type Antibody Screen 11/11/17 11/11/17 06:15 12:24 WBC RBC Hgb Hct MCV MCH MCHC RDW Plt Count MPV Neut % (Auto) Lymph % (Auto) [place] % (Auto) Eos % (Auto) Baso % (Auto) Neut # (Auto) Lymph # (Auto) [place] # (Auto) Eos # (Auto) Baso # (Auto) Neutrophils % (Manual) Band Neutrophils % Lymphocytes % (Manual) Monocytes % (Manual) Differential Comment Platelet Estimate Large Platelets Hypochromasia (manual) Poikilocytosis (manual Anisocytosis (manual) Microcytosis (manual) Macrocytosis (manual) Target Cells PT INR APTT Fibrinogen Sodium 143 Potassium 4.1 Chloride 110 H Carbon Dioxide 13 L Anion Gap 24 H BUN 96 H Creatinine 7.3 H Est GFR ( Amer) 9 Est GFR (Non-Af Amer) 7 POC Glucose (mg/dL) 153 H Random Glucose 135 H Lactic Acid Calcium 6.9 L Phosphorus 8.0 H Magnesium 1.9 Total Bilirubin 37.6 H AST 78 H ALT 74 H Alkaline Phosphatase 346 H Ammonia Troponin I NT-Pro-B Natriuret Pep Total Protein 6.9 Albumin 3.0 L Globulin 3.9 Albumin/Globulin Ratio 0.8 L Urine Color Urine Clarity Urine pH Ur Specific [place] Urine Protein Urine Glucose (UA) Urine Ketones Urine Blood Urine Nitrate Urine Bilirubin Urine Urobilinogen Ur Leukocyte Esterase Urine WBC (Auto) Urine RBC (Auto) Ur Squamous Epith Cells Amorphous Sediment Urine Bacteria Ur Random Creatinine Ur Random Sodium Random Vancomycin Blood Type Antibody Screen
--- NOTE | 2017-11-11 14:12 | CP.PCM.CON ---
History of Present Illness - History of Present Illness History of Present Illness: GI Fellow PGY4, Consult note. Mike Morrow is a 77yo WM with hx of CAD, Afib currently off OAC due to GI bleed, CHF, and suspected pancreatic mass who presented to [facility] originally for weakness, hypotension and found to have obstructive jaundice. Per reports, patient has been in septic shock and severe MACIE requiring HD starting today. Patient has had elevated bilirubin for the past 1-2 years. Routine blood work ~ 2 months ago showed further elevation of bilirubin and PMD pursued work-up. 2 weeks ago, patient developed jaundice, pruritus and dark urine. He never had abdominal pain or weight loss, fever, nausea or vomiting. Patient also apparently had ERCP scheduled as outpt but unable to complete due to current problems. Also, too unstable to complete as inpt as well. He is currently s/p PTBD to relieve biliary obstruction. PMHx - Systolic CHF, cardiomyopathy of unknown etiology ?ischemic, AFIB not on OAC, recent GI bleed. PSHx - Heart cath 2013, no stents. No colonoscopy. FmHx - Both parents had lung cancer. SocHx - Occasional cigar smoker 10/month. Occasional etoh user. 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 . Son, Christopher makes decisions if he is incapacitated. 12pt ROS completed and negative except for as above. Past Patient History - Infectious Disease Hx of Infectious Diseases: None - Tetanus Immunizations Tetanus Immunization: Unknown - Past Medical History & Family History Past Medical History?: Yes - Past Social History Smoking Status: Current Some Days Smoker - CARDIAC Hx Cardiac Disorders: Yes Hx Cardia Arrhythmia: Yes Hx Circulatory Problems: No Hx Congestive Heart Failure: Yes Hx Heart Murmur: No Hx Heart Transplant: No Hx Hypercholesterolemia: Yes Hx Hypertension: Yes Hx Internal Defibrillator: No Hx Mitral Valve Prolapse: No Hx Pacemaker: No Hx Peripheral Edema: No Hx Peripheral Vascular Disease: No - PULMONARY Hx Respiratory Disorders: No Hx Asthma: No Hx Bronchitis: No Hx Chronic Obstructive Pulmonary Disease (COPD): No Hx Emphysema: No Hx Pneumonia: No Hx Respiratory Aspiration: No Hx Respiratory Tract Infection: No Hx Sleep Apnea: No Hx Tuberculosis: No - NEUROLOGICAL Hx Neurological Disorder: No Hx Alzheimer's Disease: No HX Cerebrovascular Accident: No Hx Dementia: No Hx Dizziness: No Hx Meningitis: No Hx Migraine: No Hx Parkinson's Disease: No Hx Seizures: No Hx Transient Ischemic Attacks (TIA): No - HEENT Hx HEENT Problems: No - RENAL Hx Chronic Kidney Disease: No - ENDOCRINE/METABOLIC Hx Endocrine Disorders: No - HEMATOLOGICAL/ONCOLOGICAL Hx Blood Disorders: No Hx AIDS: No Hx Anemia: No Hx Cancer: No Hx Chemotherapy: No Hx Cirrhosis: No Hx Hepatitis A: No Hx Hepatitis B: No Hx Hepatitis C: No Hx Human Immunodeficiency Virus (HIV): No Hx Metastesis: No Hx Shingles: No Hx Unexplained Bleeding: No - INTEGUMENTARY Hx Dermatological Problems: No - MUSCULOSKELETAL/RHEUMATOLOGICAL Hx Musculoskeletal Disorders: Yes Hx Arthritis: No Hx Back Pain: No Hx Degenerative Joint Disease: No Hx Falls: No Hx Fractures: No Hx Gout: No Hx Herniated Disk: No Hx Myasthenia Gravis: No Hx Osteoarthritis: Yes Hx Osteomyelitis: No Hx Osteoporosis: No Hx Rhabdomyolysis: No Hx Spinal Stenosis: No Hx Unsteady Gait: No - GASTROINTESTINAL Hx Gastrointestinal Disorders: Yes Hx Colostomy: No Hx Crohn's Disease: No Hx Diverticulitis: No Hx Gall Bladder Disease: Yes Hx Gastroesophageal Reflux: No Hx Ileostomy: No Hx Liver Failure: No Hx Pancreatitis: No HX Swallowing Problems: No Hx Ulcer: No - GENITOURINARY/GYNECOLOGICAL Hx Genitourinary Disorders: No - PSYCHIATRIC Hx Psychophysiologic Disorder: No Hx Substance Use: No - SURGICAL HISTORY Hx Surgeries: No Hx Amputation: No Hx Appendectomy: No Hx Cardiac Catheterization: Yes Hx Cholecystectomy: No Hx Coronary Stent: No Hx Gastric Bypass Surgery: No Hx Hysterectomy: No Hx Joint Replacement: No Hx Kidney Transplant: No Hx Liver Transplant: No Hx Mastectomy: No Hx Musculoskeletal Surgery: No Hx Open Heart Surgery: No Hx Orthopedic Surgery: No Hx Splenectomy: No Hx Valve Replacement: No - ANESTHESIA Hx Anesthesia Reactions: No Hx Malignant Hyperthermia: No Meds Allergies/Adverse Reactions: Allergies Allergy/AdvReac Type Severity Reaction Status Date / Time aspirin Allergy ANAPHYLAXIS Verified 11/08/17 14:49 Penicillins Allergy PT DOES Verified 11/08/17 14:49 NOT REMEMBER THE REACTION - Medications Medications: Current Medications Calcium Acetate (Phoslo) 1,334 mg PO TIDCC [facility] Last Admin: 11/11/17 11:40 Dose: Not Given Hydrocortisone Sodium Succinate (Solu-Cortef) 50 mg IV Q8 [facility] Last Admin: 11/11/17 12:32 Dose: 50 mg Norepinephrine Bitartrate 8 mg (/ Dextrose) 258 mls @ 7.74 mls/hr IV .Q24H PRN ; Protocol; 4 MCG/MIN PRN Reason: TITRATE PER MD ORDER Last Admin: 11/11/17 09:08 Dose: 19.37 mcg/min, 37.5 mls/hr Meropenem 500 mg/ Sodium (Chloride) 100 mls @ 100 mls/hr IVPB QAM JAQUELINE PRN Reason: Protocol Last Admin: 11/11/17 10:41 Dose: 100 mls/hr Sodium Bicarbonate 150 meq/ (Dextrose) 1,150 mls @ 42 mls/hr IV .Q24H JAQUELINE Last Admin: 11/10/17 21:00 Dose: 42 mls/hr Vasopressin 40 units/ Dextrose 40 mls @ 2.4 mls/hr IV .[id number] JAQUELINE; 0.04 UNITS/ MIN PRN Reason: Protocol Last Admin: 11/11/17 13:16 Dose: 0.04 units/min, 2.4 mls/hr Insulin Aspart (Novolog) 0 unit SC Q6H JAQUELINE PRN Reason: Protocol Last Admin: 11/11/17 12:32 Dose: Not Given Pantoprazole Sodium (Protonix Inj) 40 mg IVP DAILY [facility] Last Admin: 11/11/17 10:42 Dose: 40 mg Vitamin B Complex/Vit C/Folic Acid (Nephro-Ken) 1 tab PO 0800 [facility] Physical Exam - Constitutional Appears: Non-toxic, No Acute Distress, Older Than Stated Age - Head Exam Head Exam: ATRAUMATIC, NORMAL INSPECTION, NORMOCEPHALIC - Eye Exam Eye Exam: EOMI, PERRL, Scleral icterus - ENT Exam ENT Exam: Mucous Membranes Moist, Normal Exam - Respiratory Exam Respiratory Exam: Clear to Auscultation Bilateral, NORMAL BREATHING PATTERN. absent: Wheezes - Cardiovascular Exam Cardiovascular Exam: Irregular Rhythm, +S1, +S2 - GI/Abdominal Exam GI & Abdominal Exam: Hypoactive Bowel Sounds, Soft. absent: Tenderness Additional comments: PTBD in place. - Extremities Exam Extremities exam: Positive for: normal inspection. Negative for: calf tenderness, pedal edema - Neurological Exam Neurological exam: Alert, CN II-XII Intact, Oriented x3 - Psychiatric Exam Psychiatric exam: Normal Affect, Normal Mood - Skin Skin Exam: Dry, Intact, Warm Additional comments: Jaundice present. Multiple excoriations. Results - Vital Signs Recent Vital Signs: Last Vital Signs Temp 97.8 F 11/11/17 08:00 Pulse 96 H 11/11/17 13:16 Resp 14 11/11/17 13:16 BP 91/57 L 11/11/17 13:16 Pulse Ox 96 11/11/17 13:16 - Labs Result Diagrams: 11/11/17 06:15 11/11/17 06:15 Labs: Laboratory Results - last 24 hr 11/10/17 11/10/17 11/10/17 16:02 17:37 17:37 WBC 13.1 H RBC 3.33 L Hgb 10.8 L Hct 31.2 L MCV 93.8 MCH 32.6 H MCHC 34.7 RDW 16.4 H Plt Count 145 MPV 10.0 Neut % (Auto) 73.3 Lymph % (Auto) 4.6 L [place] % (Auto) 21.8 H Eos % (Auto) 0.2 Baso % (Auto) 0.1 Neut # (Auto) 9.6 H Lymph # (Auto) 0.6 L [place] # (Auto) 2.8 H Eos # (Auto) 0.0 Baso # (Auto) 0.0 Neutrophils % (Manual) 77 H Band Neutrophils % 6 H Lymphocytes % (Manual) 6 L Monocytes % (Manual) 11 H Differential Comment Platelet Estimate Normal Large Platelets Present Hypochromasia (manual) Slight Poikilocytosis (manual Slight Anisocytosis (manual) Slight Microcytosis (manual) Slight Macrocytosis (manual) Slight Target Cells Slight PT INR APTT Fibrinogen Sodium 142 Potassium 3.9 Chloride 111 H Carbon Dioxide 13 L Anion Gap 22 H BUN 89 H Creatinine 6.6 H Est GFR ( Amer) 10 Est GFR (Non-Af Amer) 8 POC Glucose (mg/dL) Random Glucose 117 H Lactic Acid 1.2 Calcium 6.7 L Phosphorus 7.2 H Magnesium 1.9 Total Bilirubin 37.8 H AST 81 H ALT 70 Alkaline Phosphatase 327 H Ammonia Troponin I 0.0210 NT-Pro-B Natriuret Pep 54622 H Total Protein 6.5 Albumin 2.9 L Globulin 3.6 Albumin/Globulin Ratio 0.8 L Urine Color Urine Clarity Urine pH Ur Specific [place] Urine Protein Urine Glucose (UA) Urine Ketones Urine Blood Urine Nitrate Urine Bilirubin Urine Urobilinogen Ur Leukocyte Esterase Urine WBC (Auto) Urine RBC (Auto) Ur Squamous Epith Cells Amorphous Sediment Urine Bacteria Ur Random Creatinine Ur Random Sodium Random Vancomycin Blood Type Antibody Screen 11/10/17 11/10/17 11/10/17 17:37 17:37 17:37 WBC RBC Hgb Hct MCV MCH MCHC RDW Plt Count MPV Neut % (Auto) Lymph % (Auto) [place] % (Auto) Eos % (Auto) Baso % (Auto) Neut # (Auto) Lymph # (Auto) [place] # (Auto) Eos # (Auto) Baso # (Auto) Neutrophils % (Manual) Band Neutrophils % Lymphocytes % (Manual) Monocytes % (Manual) Differential Comment Platelet Estimate Large Platelets Hypochromasia (manual) Poikilocytosis (manual Anisocytosis (manual) Microcytosis (manual) Macrocytosis (manual) Target Cells PT 13.8 H INR 1.3 APTT 30 Fibrinogen 219 Sodium Potassium Chloride Carbon Dioxide Anion Gap BUN Creatinine Est GFR ( Amer) Est GFR (Non-Af Amer) POC Glucose (mg/dL) Random Glucose Lactic Acid Calcium Phosphorus Magnesium Total Bilirubin AST ALT Alkaline Phosphatase Ammonia 38 H Troponin I NT-Pro-B Natriuret Pep Total Protein Albumin Globulin Albumin/Globulin Ratio Urine Color Urine Clarity Urine pH Ur Specific [place] Urine Protein Urine Glucose (UA) Urine Ketones Urine Blood Urine Nitrate Urine Bilirubin Urine Urobilinogen Ur Leukocyte Esterase Urine WBC (Auto) Urine RBC (Auto) Ur Squamous Epith Cells Amorphous Sediment Urine Bacteria Ur Random Creatinine Ur Random Sodium Random Vancomycin Blood Type O POSITIVE Antibody Screen Negative 11/10/17 11/10/17 11/10/17 17:37 17:44 18:20 WBC RBC Hgb Hct MCV MCH MCHC RDW Plt Count MPV Neut % (Auto) Lymph % (Auto) [place] % (Auto) Eos % (Auto) Baso % (Auto) Neut # (Auto) Lymph # (Auto) [place] # (Auto) Eos # (Auto) Baso # (Auto) Neutrophils % (Manual) Band Neutrophils % Lymphocytes % (Manual) Monocytes % (Manual) Differential Comment Platelet Estimate Large Platelets Hypochromasia (manual) Poikilocytosis (manual Anisocytosis (manual) Microcytosis (manual) Macrocytosis (manual) Target Cells PT INR APTT Fibrinogen Sodium Potassium Chloride Carbon Dioxide Anion Gap BUN Creatinine Est GFR ( Amer) Est GFR (Non-Af Amer) POC Glucose (mg/dL) 102 Random Glucose Lactic Acid Calcium Phosphorus Magnesium Total Bilirubin AST ALT Alkaline Phosphatase Ammonia Troponin I NT-Pro-B Natriuret Pep Total Protein Albumin Globulin Albumin/Globulin Ratio Urine Color Nancy Urine Clarity Hazy Urine pH 5.0 Ur Specific [place] 1.016 Urine Protein 2+ H Urine Glucose (UA) 1+ H Urine Ketones Negative Urine Blood 3+ H Urine Nitrate Negative Urine Bilirubin 2+ H Urine Urobilinogen 2.0 Ur Leukocyte Esterase 2+ H Urine WBC (Auto) 6 H Urine RBC (Auto) 551 H Ur Squamous Epith Cells 2 Amorphous Sediment Rare H Urine Bacteria Occ H Ur Random Creatinine Ur Random Sodium Random Vancomycin 6.2 Blood Type Antibody Screen 11/10/17 11/10/17 11/10/17 19:48 19:48 23:17 WBC RBC Hgb Hct MCV MCH MCHC RDW Plt Count MPV Neut % (Auto) Lymph % (Auto) [place] % (Auto) Eos % (Auto) Baso % (Auto) Neut # (Auto) Lymph # (Auto) [place] # (Auto) Eos # (Auto) Baso # (Auto) Neutrophils % (Manual) Band Neutrophils % Lymphocytes % (Manual) Monocytes % (Manual) Differential Comment Platelet Estimate Large Platelets Hypochromasia (manual) Poikilocytosis (manual Anisocytosis (manual) Microcytosis (manual) Macrocytosis (manual) Target Cells PT INR APTT Fibrinogen Sodium Potassium Chloride Carbon Dioxide Anion Gap BUN Creatinine Est GFR ( Amer) Est GFR (Non-Af Amer) POC Glucose (mg/dL) 108 Random Glucose Lactic Acid 0.9 Calcium Phosphorus Magnesium Total Bilirubin AST ALT Alkaline Phosphatase Ammonia Troponin I 0.0220 NT-Pro-B Natriuret Pep Total Protein Albumin Globulin Albumin/Globulin Ratio Urine Color Urine Clarity Urine pH Ur Specific [place] Urine Protein Urine Glucose (UA) Urine Ketones Urine Blood Urine Nitrate Urine Bilirubin Urine Urobilinogen Ur Leukocyte Esterase Urine WBC (Auto) Urine RBC (Auto) Ur Squamous Epith Cells Amorphous Sediment Urine Bacteria Ur Random Creatinine Ur Random Sodium Random Vancomycin Blood Type Antibody Screen 11/10/17 11/11/17 11/11/17 23:55 05:50 06:15 WBC RBC Hgb Hct MCV MCH MCHC RDW Plt Count MPV Neut % (Auto) Lymph % (Auto) [place] % (Auto) Eos % (Auto) Baso % (Auto) Neut # (Auto) Lymph # (Auto) [place] # (Auto) Eos # (Auto) Baso # (Auto) Neutrophils % (Manual) Band Neutrophils % Lymphocytes % (Manual) Monocytes % (Manual) Differential Comment Platelet Estimate Large Platelets Hypochromasia (manual) Poikilocytosis (manual Anisocytosis (manual) Microcytosis (manual) Macrocytosis (manual) Target Cells PT INR APTT Fibrinogen Sodium Potassium Chloride Carbon Dioxide Anion Gap BUN Creatinine Est GFR ( Amer) Est GFR (Non-Af Amer) POC Glucose (mg/dL) 148 H Random Glucose Lactic Acid Calcium Phosphorus Magnesium Total Bilirubin AST ALT Alkaline Phosphatase Ammonia Troponin I 0.0270 NT-Pro-B Natriuret Pep Total Protein Albumin Globulin Albumin/Globulin Ratio Urine Color Urine Clarity Urine pH Ur Specific [place] Urine Protein Urine Glucose (UA) Urine Ketones Urine Blood Urine Nitrate Urine Bilirubin Urine Urobilinogen Ur Leukocyte Esterase Urine WBC (Auto) Urine RBC (Auto) Ur Squamous Epith Cells Amorphous Sediment Urine Bacteria Ur Random Creatinine 106.1 Ur Random Sodium 31 Random Vancomycin Blood Type Antibody Screen 11/11/17 11/11/17 11/11/17 06:15 06:15 06:15 WBC 21.1 H D RBC 3.45 L Hgb 11.3 L Hct 32.3 L MCV 93.6 MCH 32.9 H MCHC 35.1 RDW 16.3 H Plt Count 163 MPV 9.8 Neut % (Auto) 51.8 Lymph % (Auto) 34.3 [place] % (Auto) 13.9 H Eos % (Auto) 0.0 Baso % (Auto) 0.0 Neut # (Auto) 10.9 H Lymph # (Auto) 7.2 H [place] # (Auto) 2.9 H Eos # (Auto) 0.0 Baso # (Auto) 0.0 Neutrophils % (Manual) Band Neutrophils % Lymphocytes % (Manual) Monocytes % (Manual) Differential Comment Platelet Estimate Large Platelets Hypochromasia (manual) Poikilocytosis (manual Anisocytosis (manual) Microcytosis (manual) Macrocytosis (manual) Target Cells PT 13.9 H INR 1.3 APTT Fibrinogen Sodium Potassium Chloride Carbon Dioxide Anion Gap BUN Creatinine Est GFR ( Amer) Est GFR (Non-Af Amer) POC Glucose (mg/dL) Random Glucose Lactic Acid 0.9 Calcium Phosphorus Magnesium Total Bilirubin AST ALT Alkaline Phosphatase Ammonia Troponin I NT-Pro-B Natriuret Pep Total Protein Albumin Globulin Albumin/Globulin Ratio Urine Color Urine Clarity Urine pH Ur Specific [place] Urine Protein Urine Glucose (UA) Urine Ketones Urine Blood Urine Nitrate Urine Bilirubin Urine Urobilinogen Ur Leukocyte Esterase Urine WBC (Auto) Urine RBC (Auto) Ur Squamous Epith Cells Amorphous Sediment Urine Bacteria Ur Random Creatinine Ur Random Sodium Random Vancomycin Blood Type Antibody Screen 11/11/17 11/11/17 06:15 12:24 WBC RBC Hgb Hct MCV MCH MCHC RDW Plt Count MPV Neut % (Auto) Lymph % (Auto) [place] % (Auto) Eos % (Auto) Baso % (Auto) Neut # (Auto) Lymph # (Auto) [place] # (Auto) Eos # (Auto) Baso # (Auto) Neutrophils % (Manual) Band Neutrophils % Lymphocytes % (Manual) Monocytes % (Manual) Differential Comment Platelet Estimate Large Platelets Hypochromasia (manual) Poikilocytosis (manual Anisocytosis (manual) Microcytosis (manual) Macrocytosis (manual) Target Cells PT INR APTT Fibrinogen Sodium 143 Potassium 4.1 Chloride 110 H Carbon Dioxide 13 L Anion Gap 24 H BUN 96 H Creatinine 7.3 H Est GFR ( Amer) 9 Est GFR (Non-Af Amer) 7 POC Glucose (mg/dL) 153 H Random Glucose 135 H Lactic Acid Calcium 6.9 L Phosphorus 8.0 H Magnesium 1.9 Total Bilirubin 37.6 H AST 78 H ALT 74 H Alkaline Phosphatase 346 H Ammonia Troponin I NT-Pro-B Natriuret Pep Total Protein 6.9 Albumin 3.0 L Globulin 3.9 Albumin/Globulin Ratio 0.8 L Urine Color Urine Clarity Urine pH Ur Specific [place] Urine Protein Urine Glucose (UA) Urine Ketones Urine Blood Urine Nitrate Urine Bilirubin Urine Urobilinogen Ur Leukocyte Esterase Urine WBC (Auto) Urine RBC (Auto) Ur Squamous Epith Cells Amorphous Sediment Urine Bacteria Ur Random Creatinine Ur Random Sodium Random Vancomycin Blood Type Antibody Screen Assessment & Plan - Assessment and Plan (Free Text) Assessment: 77yo WM with hx of sytolic CHF, AFIB, recent GI bleed, and reported pancreatic mass presenting with obstructive jaundice, HoTN, septic shock, worsening MACIE and now on HD concerning for acute cholangitis and malignancy. #Painless Obstructive jaundice - Concern for cholangiocarcinoma or pancreatic cancer #Possible acute cholangitis #Pancreatic mass #Recent GI bleed #Hepatosteatosis #Cholelithiasis #Septic shock #Anion Gap Metabolic Acidosis #Elevated INR #Systolic CHF - 2013 cath without significant CAD #Chronic Afib #MACIE on HD Plan: -Continue supportive care -MRCP reviewed and compared to CT abd/pelv report. -PTC with biliary drain revealed: "Cholangiogram showed common hepatic mass extending into right hepatic duct". I discussed result with IR and concerned for cholangiocarcinoma. -Diet: NPO in setting of shock -Continue to monitor microbio. No growth to date in blood. -Agree with IV ppi for recent GI bleed and high risk for stress ulcer -Agree with Merem in setting of possible life-threatening acute cholangitis -PENDING labs: Anti-mitochondrial, anti-smooth muscle, CA19-9, CEA, AFP, hepatitis panel. Note: CA 19-9 can be falsely elevated in setting of obstructive jaundice so it will need to be followed up if elevated. -Agree with Percutaneous Transhepatic Biliary Drain to relieve obstruction. -ERCP with biliary stent recommended when patient more stable for a more permanent solution to obstruction. -Patient would benefit from surgical consult to evaluate the possibility of resection. -Further management pending clinical progress. We will continue to monitor patient course. - Date & Time Date: 11/11/17 Time: 14:55
[2017-11-11] MEDS ORDERED: Midazolam 2 MG/2 ML VIAL ONE ×2 (14:16→14:55)
[2017-11-11] MEDS ORDERED: Lidocaine 2% MPF (5 ml) Inj ONE (14:54)
--- NOTE | 2017-11-11 15:29 | PCM.SURG1 ---
Surgeon's Initial Post Op Note - Surgeon's Notes Surgeon: Boubacar Jose MD Motor Pool Clerk: NONE Type of Anesthesia: Moderate Sedation{RN} Pre-Operative Diagnosis: Biliary obstruction Operative Findings: Cholangiogram showed common hepatic mass extending into right hepatic duct. Severely dilted gallbladder Post-Operative Diagnosis: Biliary obstruction Operation Performed: Cholecystostomy tube placement. Placement of an Internal External 10 fr biliary drain. Specimen/Specimens Removed: NONE Estimated Blood Loss: EBL {In ML}: 10 Blood Products Given: N/A Post-Op Condition: Poor Date of Surgery/Procedure: 11/11/17 Time of Surgery/Procedure: 15:25
--- NOTE | 2017-11-11 16:07 | VASCLAB ---
PROCEDURE: Lower Extremity Venous Duplex Exam. HISTORY: Swelling, r/o DVT PRIORS: None. TECHNIQUE: Bilateral common femoral, femoral, popliteal and posterior tibial, peroneal and great saphenous veins were evaluated. Flow was assessed with color Doppler, compressibility, assessment of phasic flow and augmentation response. Report prepared by VIDA Kenyon FINDINGS: RIGHT: 1. Common Femoral Vein: 1.1. Dressing in the right groin 2. Femoral Vein: 2.1. Compressibility - Fully compressible: Thrombus - None : Flow - Phasic: Augmentation -Normal: Reflux - None. 3. Popliteal Vein: 3.1. Compressibility - Fully compressible: Thrombus - None : Flow - Phasic: Augmentation -Normal: Reflux - None. 4. Posterior Tibial Vein: 4.1. Compressibility - Fully compressible: Thrombus - None: Flow - Phasic: Augmentation -Normal: Reflux - None. 5. Peroneal Vein: 5.1. Compressibility - Fully compressible: Thrombus - None: Flow - Phasic: Augmentation -Normal: Reflux - None. 6. Great Saphenous Vein: 6.1. Compressibility - Fully compressible: Thrombus - None: Flow - Phasic: Augmentation - Normal: Reflux - None. LEFT: 1. Common Femoral Vein: 1.1. Compressibility - Fully compressible: Thrombus - None: Flow - Phasic: Augmentation -Normal: Reflux - None. 2. Femoral Vein: 2.1. Compressibility - Fully compressible: Thrombus - None: Flow - Phasic: Augmentation -Normal: Reflux - None. 3. Popliteal Vein: 3.1. Compressibility - Fully compressible: Thrombus - None : Flow - Phasic: Augmentation -Normal: Reflux - None. 4. Posterior Tibial Vein: 4.1. Compressibility - Fully compressible: Thrombus - None: Flow - Phasic: Augmentation -Normal: Reflux - None. 5. Peroneal Vein: 5.1. Compressibility - Fully compressible: Thrombus - None: Flow - Phasic: Augmentation -Normal: Reflux - None. 6. Great Saphenous Vein: 6.1. Compressibility - Fully compressible: Thrombus - None: Flow - Phasic: Augmentation - Normal: Reflux - None. OTHER FINDINGS: Right: None significant. Left: None significant. IMPRESSION: Right: No evidence of deep or superficial vein thrombosis of the right lower extremity. Normal valve function noted of the right side. Left: No evidence of deep or superficial vein thrombosis of the left lower extremity. Normal valve function noted of the left side.
--- NOTE | 2017-11-11 16:22 | RAD ---
PROCEDURE: CHEST RADIOGRAPH, 1 VIEW HISTORY: HD cath placement COMPARISON: None available. FINDINGS: LUNGS: Pulmonary vascular congestion. No focal consolidation. Left basilar atelectasis/scarring. PLEURA: No pneumothorax or pleural fluid seen. CARDIOVASCULAR: Atherosclerotic aortic calcifications. Cardiomediastinal silhouette enlarged. OSSEOUS STRUCTURES: Degenerative changes. VISUALIZED UPPER ABDOMEN: Normal. OTHER FINDINGS: Right internal jugular access non tunneled hemodialysis catheter with tip in the SVC. IMPRESSION: Satisfactory placement of right internal jugular access non tunneled hemodialysis catheter. No appreciable pneumothorax.
--- NOTE | 2017-11-11 16:30 | CT ---
PROCEDURE: CT Abdomen without intravenous contrast HISTORY: eval gall bladder COMPARISON: Abdominal ultrasound performed earlier the same day. TECHNIQUE: Axial images of the abdomen from lung bases to iliac crest without intravenous contrast enhancement. Coronal and sagittal reformats generated. Oral contrast was administered. Radiation dose: Total exam DLP = 821.5 mGy-cm. This CT exam was performed using one or more of the following dose reduction techniques: Automated exposure control, adjustment of the mA and/or kV according to patient size, and/or use of iterative reconstruction technique. FINDINGS: LOWER THORAX: Small bilateral pleural effusions. Cardiomegaly. Coronary arterial and valvular calcifications. LIVER: Moderate intrahepatic biliary ductal dilatation. GALLBLADDER AND BILE DUCTS: Markedly distended gallbladder with calcified cholelithiasis and questionable wall thickening. PANCREAS: Unremarkable. No gross lesion or ductal dilatation. SPLEEN: Unremarkable. ADRENALS: Unremarkable. No mass. KIDNEYS AND URETERS: Unremarkable. No hydronephrosis. No solid mass. VASCULATURE: Unremarkable. No aortic aneurysm. BOWEL: Partially imaged colonic diverticulosis. No obstruction. No gross mural thickening. PERITONEUM: Unremarkable. No free fluid. No free air. LYMPH NODES: Unremarkable. No enlarged lymph nodes. BONES: No acute fracture. OTHER FINDINGS: None. IMPRESSION: Markedly distended gallbladder with calcified cholelithiasis and questionable wall thickening for which acute cholecystitis related to cystic duct or distal CBD obstruction cannot be excluded. Moderate intrahepatic biliary ductal dilatation and dilated CBD. Very limited evaluation of the pancreatic head. Choledocholithiasis or pancreatic mass cannot be excluded. Contrast-enhanced MRI/MRCP can be obtained for further evaluation as clinically warranted. Small bilateral pleural effusions.
[2017-11-11 18:41] LABS: HEPATITIS B SURFACE AG Negative (NEGATIVE)
[2017-11-11 18:44] LABS: HEPATITIS B CORE AB NEGATIVE (NEGATIVE)
[2017-11-11 19:05] LABS: HEPATITIS C ANTIBODY NEGATIVE (NEGATIVE)
--- NOTE | 2017-11-11 19:24 | CP.PCM.PN ---
Subjective - Date & Time of Evaluation Date of Evaluation: 11/11/17 Time of Evaluation: 07:15 - Subjective Subjective: Patient seen and examined. Currently on pressor support, levo 20mcg and vasopressin 0.04. Oliguric. Afebrile. Objective - Vital Signs/Intake and Output Vital Signs (last 24 hours): Temp Pulse Resp BP Pulse Ox 98 F 90 20 112/88 99 11/11/17 18:25 11/11/17 19:00 11/11/17 19:00 11/11/17 19:00 11/11/17 19:00 Intake and Output: 11/11/17 11/12/17 18:59 06:59 Intake Total 1280.8 81.9 Output Total 600 80 Balance 680.8 1.9 - Medications Medications: Current Medications Calcium Acetate (Phoslo) 1,334 mg PO TIDCC [facility] Last Admin: 11/11/17 16:34 Dose: Not Given Hydrocortisone Sodium Succinate (Solu-Cortef) 50 mg IV Q8 [facility] Last Admin: 11/11/17 12:32 Dose: 50 mg Norepinephrine Bitartrate 8 mg (/ Dextrose) 258 mls @ 7.74 mls/hr IV .Q24H PRN ; Protocol; 4 MCG/MIN PRN Reason: TITRATE PER MD ORDER Last Admin: 11/11/17 18:01 Dose: 19.37 mcg/min, 37.5 mls/hr Meropenem 500 mg/ Sodium (Chloride) 100 mls @ 100 mls/hr IVPB QAM JAQUELINE PRN Reason: Protocol Last Admin: 11/11/17 10:41 Dose: 100 mls/hr Sodium Bicarbonate 150 meq/ (Dextrose) 1,150 mls @ 42 mls/hr IV .Q24H [facility] Last Admin: 11/10/17 21:00 Dose: 42 mls/hr Vasopressin 40 units/ Dextrose 40 mls @ 2.4 mls/hr IV .[id number] JAQUELINE; 0.04 UNITS/ MIN PRN Reason: Protocol Last Admin: 11/11/17 13:16 Dose: 0.04 units/min, 2.4 mls/hr Insulin Aspart (Novolog) 0 unit SC Q6H JAQUELINE PRN Reason: Protocol Last Admin: 11/11/17 18:00 Dose: 2 u Ondansetron HCl (Zofran Inj) 4 mg IVP Q6 PRN PRN Reason: Nausea/Vomiting Pantoprazole Sodium (Protonix Inj) 40 mg IVP DAILY [facility] Last Admin: 11/11/17 10:42 Dose: 40 mg Vitamin B Complex/Vit C/Folic Acid (Nephro-Ken) 1 tab PO 0800 JAQUELINE - Labs Labs: 11/11/17 06:15 11/11/17 06:15 PT 13.9 SECONDS (9.7-12.2) H 11/11/17 06:15 INR 1.3 11/11/17 06:15 APTT 30 SECONDS (21-34) 11/10/17 17:37 - Constitutional Appears: No Acute Distress, Other (jaundice) - Head Exam Head Exam: NORMOCEPHALIC - Eye Exam Eye Exam: EOMI, Scleral icterus - ENT Exam ENT Exam: Mucous Membranes Moist - Respiratory Exam Respiratory Exam: NORMAL BREATHING PATTERN - Cardiovascular Exam Cardiovascular Exam: +S1, +S2 - GI/Abdominal Exam GI & Abdominal Exam: Soft. absent: Firm, Guarding, Rebound - Neurological Exam Neurological Exam: Alert, Awake, Oriented x3 - Psychiatric Exam Psychiatric exam: Normal Mood - Skin Skin Exam: Dry Additional comments: jaundice Assessment and Plan - Assessment and Plan (Free Text) Assessment: 77M with obstructive jaundice Plan: -For cholecystostomy tube placement today -Maintain MAP >65 -Poor surgical candidate -F/u GI recs -Medical management per ICU team Further recs per Dr. Janusz Astudillo PGY3
--- NOTE | 2017-11-11 19:26 | CP.PCM.PN ---
Subjective - Date & Time of Evaluation Date of Evaluation: 11/11/17 Time of Evaluation: 19:15 - Subjective Subjective: On HD no cp no sob very tired shaky Objective - Vital Signs/Intake and Output Vital Signs (last 24 hours): Temp Pulse Resp BP Pulse Ox 98 F 90 20 112/88 99 11/11/17 18:25 11/11/17 19:00 11/11/17 19:00 11/11/17 19:00 11/11/17 19:00 Intake and Output: 11/11/17 11/12/17 18:59 06:59 Intake Total 1280.8 81.9 Output Total 600 80 Balance 680.8 1.9 - Medications Medications: Current Medications Calcium Acetate (Phoslo) 1,334 mg PO TIDCC [facility] Last Admin: 11/11/17 16:34 Dose: Not Given Hydrocortisone Sodium Succinate (Solu-Cortef) 50 mg IV Q8 [facility] Last Admin: 11/11/17 12:32 Dose: 50 mg Norepinephrine Bitartrate 8 mg (/ Dextrose) 258 mls @ 7.74 mls/hr IV .Q24H PRN ; Protocol; 4 MCG/MIN PRN Reason: TITRATE PER MD ORDER Last Admin: 11/11/17 18:01 Dose: 19.37 mcg/min, 37.5 mls/hr Meropenem 500 mg/ Sodium (Chloride) 100 mls @ 100 mls/hr IVPB QAM JAQUELINE PRN Reason: Protocol Last Admin: 11/11/17 10:41 Dose: 100 mls/hr Sodium Bicarbonate 150 meq/ (Dextrose) 1,150 mls @ 42 mls/hr IV .Q24H [facility]PL[facility] Last Admin: 11/10/17 21:00 Dose: 42 mls/hr Vasopressin 40 units/ Dextrose 40 mls @ 2.4 mls/hr IV .[id number] JAQUELINE; 0.04 UNITS/ MIN PRN Reason: Protocol Last Admin: 11/11/17 13:16 Dose: 0.04 units/min, 2.4 mls/hr Insulin Aspart (Novolog) 0 unit SC Q6H JAQUELINE PRN Reason: Protocol Last Admin: 11/11/17 18:00 Dose: 2 u Ondansetron HCl (Zofran Inj) 4 mg IVP Q6 PRN PRN Reason: Nausea/Vomiting Pantoprazole Sodium (Protonix Inj) 40 mg IVP DAILY [facility] Last Admin: 11/11/17 10:42 Dose: 40 mg Vitamin B Complex/Vit C/Folic Acid (Nephro-Ken) 1 tab PO 0800 [facility] - Labs Labs: 11/11/17 06:15 11/11/17 06:15 PT 13.9 SECONDS (9.7-12.2) H 11/11/17 06:15 INR 1.3 11/11/17 06:15 APTT 30 SECONDS (21-34) 11/10/17 17:37 - Constitutional Appears: Younger Than Stated Age - Head Exam Head Exam: ATRAUMATIC - Eye Exam Eye Exam: Scleral icterus - ENT Exam ENT Exam: Mucous Membranes Dry - Respiratory Exam Respiratory Exam: Decreased Breath Sounds, NORMAL BREATHING PATTERN. absent: Accessory Muscle Use - Cardiovascular Exam Cardiovascular Exam: +S1, +S2 - GI/Abdominal Exam Additional comments: obese morbidly obese right flank drain - Exam Additional comments: siu - Neurological Exam Neurological Exam: Alert, Awake, Oriented x3 - Skin Skin Exam: absent: Normal Color Additional comments: jaundiced Assessment and Plan - Assessment and Plan (Free Text) Assessment: S/p Biliary drain Septic Shock Continue ICU care: From ICU note: 77 year old male with past medical history of HTN, A fib, CHF is admitted for painless jaundice with T. Bili of 37.6 and MACIE in need for emergent dialysis. Patient was admitted to [facility] but due to need for emergent dialysis, was transferred to [facility]. Septic Shock due to ascending cholangitis Acute Renal Failure due to septic shock - MACIE on CKD stage IV getting HD - BUN/Cr: 96/7.3 - Pt will have HD today - RIJ trialysis cath inserted on 11/10/17 - NephDr. Ge angel is consulted Cardiology: - PMHx of A fib and CHF with EF of 40% on recent echo with global hypokenesis A. A fib - Currently rate controlled - Oral AC on hold for possible procedure Acute on chronic Diastolic CHF with EF of 40 % - Pro-BNP on admission was [id number] - Patient currently hypotensive and in septic shock. 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 Painless jaundice - T. Bili on admission was 37.6 - D. Bili 32.5. Alk phos 346. AST 78/ ALT 74 - MRCP done at [place] on 10/31 showed intra and extrahepatic biliary dilation with common bile duct measuring 17 mm in the seth hepatis - IR is consulted for emergent cholecystostomy tube - GI, Dr. Neville consulted for ERCP - Surgery, Dr. Vaughn is consulted - Pt is hypotensive and currently on pressors. There is concern for ascending cholangitis. Pt afebrile. A&Ox 3. - Currently on Meropenem - Hematuria
--- NOTE | 2017-11-11 21:25 | CARD ---
APPROVED REPORT EKG Measurement Heart [id number] <Conclusion> Atrial fibrillation Low voltage QRS Septal infarct, age undetermined Abnormal ECG
[2017-11-11] MEDS: Sodium Bicarbonate 8.4% 150 MEQ in Dextrose 5% In Water 1,000 ML IV SCH (21:30)
--- NOTE | 2017-11-12 04:33 | CON ---
DATE: 11/11/2017 INFECTIOUS DISEASE CONSULT REQUESTED BY: Dr. Guevara. HISTORY OF PRESENT ILLNESS: This patient is a 77-year-old male. He comes from [facility] where he went since he was not feeling well, having back pain, was jaundiced, and pruritus. Some history was taken from his son who was at the bedside. He said the patient was having jaundice, and he was supposed to have a procedure done, and since it was a weekend, it was planned for Saturday, but before Saturday, he became hypotensive, and the task could not be done because of hypotension and he was admitted, and then he was found to have this kidney issue, and he is transferred here from [facility]. PAST MEDICAL HISTORY: Significant for obstructive jaundice, atrial fibrillation, CHF, GI bleed, and history of pancreatic mass which is just recently discovered. He was absolutely fine before in October, in third week. He even went to [place] to see his friend, but he became jaundiced soon after and that needed workup and also follows with the framing inspector. He has been on Coumadin before, and his urine was getting dark, and he was itching all over and getting yellow skin. The patient was followed up by GI, had an MRCP which did not rule out any pancreatic or biliary mass, and so he was to go as outpatient for ERCP on 11/08/2018, but became hypotensive before that and ended up in the hospital, and now he is in ICU in [facility]. He did have a dialysis catheter placed and underwent a dialysis today also before going to Radiology, and he was going to go for a CAT scan and possible cholecystostomy tube which at the time when I am dictating my note, has already been done. He was seen earlier in the afternoon today. HE IS ALLERGIC TO ASPIRIN AND PENICILLIN, but he was started on Merrem by the candlemaker and he has done fine with them. We had decreased the dose because of his renal issues, and he is also with very high bilirubin and increased WBC. He was hypotensive, came in with septic shock and acute renal failure with severe obstructive jaundice, atrial fibrillation, surgical history of cardiac cath in 2013 or 2014, dialysis catheter now. FAMILY HISTORY: His both parents of lung cancers. MEDICATIONS: He was on Coumadin, lisinopril, Coreg, but Coumadin he stopped 4 weeks ago due to GI bleed, and occasionally, he takes Lasix. SOCIAL HISTORY: He is a former cigar smoker, history of second hand smoking, also denies alcohol or drug abuse. ALLERGIES: HE IS ALLERGIC TO ASPIRIN WHICH CAUSES GASTRITIS. I AM NOT SURE ABOUT HIS ALLERGIES TO PENICILLIN. REVIEW OF SYSTEMS: He denied any chest pain. Denies any shortness of breath or exertional dyspnea. Denies any nausea or vomiting. Did come with a back pain. Integumentary: He has been having pruritus. Neurologically, absent headaches and weakness. Psych: No psych history reported, and he has been excessively sweating. Has history of easy bleeding, because he was on Coumadin before, has no infections going on. He did give history of travel also to [place] recently in October, and he has allergies, we know about. He is a smoker. Cardiac history: Arrythmias, atrial fibrillation, cardiac disorder, congestive heart failures. No murmurs, no heart transplant. He has hypercholesterolemia. No pacemaker, no peripheral edema, no vascular disease reported. He does not have any COPD, emphysema, sleep apnea, or asthma. Neurologically, there was no history of any TIA or CVAs. No dementia. No meningitis, migraine, or TIAs. No seizure disorder. Kidney with no kidney disease in the past. No endocrine problems. No bleeding disorders. No HIV disease. No hepatitis. No derm problems. He has back problems in the past, musculoskeletal problems. No myasthenia gravis. No osteomyelitis, no osteoarthritis, no spinal stenosis. Denies any urinary symptoms of urgency, frequency. Denies any psych issues with substance abuse or psychophysiological disorders. He did have cardiac cath in 2013, I am told otherwise. He has had no other surgeries, has no history of anesthesia before. HE IS ALLERGIC TO PENICILLIN, BUT HE DOES NOT REMEMBER WHAT HAPPENS TO IT. PHYSICAL EXAMINATION: GENERAL: I do find he is morbidly obese. VITAL SIGNS: His weight was 319 pounds and BSA is 2.65, 5 feet 9 inches. HEENT: Head is atraumatic, normocephalic. Pupils are icteric, and he appears jaundiced. Mucus membrane is moist. NECK: Supple. JVP is flat. LUNGS: Clear. Decreased breath sounds bilaterally. No wheezing, no rhonchi, but his chest wall is symmetrical. He is a big ele. HEART: S1, S2 is irregularly irregular. He appears to be in atrial fibrillation. ABDOMEN: Soft, nontender. No guarding, no rigidity present. EXTREMITIES: Remain with some edema, and he is moving all his extremities. LABORATORIES: Noted. Labs show white count yesterday was 13.1, hemoglobin 10.8, hematocrit 31.2, platelet count is 145. Today, the white count was 21.1. He is also started on stat doses of hydrocortisone as he came in septic shock. Hemoglobin is 11.3, hematocrit is 32.3, platelet count is 163 right now, and neutrophils are 10.9. INR is 1.3. Sodium is 143, potassium 4.1, chlorides are 110, CO2 is 13. Because of renal failure, his creatinine remains 7.3, glucose is 148, lactic acid today was 0.9, and total bili is 37.8. AST is 78, ALT is 74, alk phos is 346, and UA shows 2+ bilirubin, 2+ leukocytes, rbc 551, and blood cultures are ordered, but I do not see any report and MRSA was not detected on the nasal smear, and he had Duplex scan of the lower extremities which was negative. He had abdominal CT and ultrasound. Impression is hepatomegaly with steatosis, cholelithiasis with mild gallbladder wall thickening, so no Shafer law was not elicited equivocal for acute cholecystitis. HIDA scan was suggested, but I think with such a high bilirubin, HIDA scan may not have , but he also had a CAT scan, also on 11/10/2017, and the CAT scan shows markedly distended gallbladder with calcified cholelithiasis and questionable wall thickening, unremarkable, no gross lesion or ductal dilatation was seen on the pancreas, so at this time, it seems like it is all gallbladder disease, and the patient, as I am dictating, has undergone a procedure done by Dr. Boubacar Jose. His cholangiogram showed common hepatic mass extending into the right hepatic duct, severely dilated gallbladder. There is a cholecystotomy tube placement and placement of an internal, external 10-[place] biliary drain. He has a biliary drain at this time, and since they drained the gallbladder and I would want if there is drain, we can send a culture from. IMPRESSION: This patient is admitted with septic shock with obstructive jaundice, acute renal failure. He has history of congestive heart failure and atrial fibrillation, and we will follow, and continue meropenem at this time. Stephania Abdi MD
[2017-11-12 06:16] LABS: HEMOGLOBIN 10.8 g/dL (12.0-18.0); MEAN CELL VOLUME 92.1 fL (80.0-94.0); MEAN CORPUSCULAR HEMOGLOBIN 32.6 pg (27.0-31.0); MEAN CORPUSCULAR HGB CONC 35.4 g/dL (33.0-37.0); MEAN PLATELET VOLUME 9.8 fL (7.2-11.7); PLATELET COUNT 129 K/uL (130-400); RBC 3.32 Mil/uL (4.40-5.90); RED CELL DISTRIBUTION WIDTH 16.4 % (11.5-14.5); WHITE BLOOD COUNT 12.6 K/uL (4.8-10.8)
[2017-11-12 06:20] LABS: INR 1.3; PROTHROMBIN TIME 14.6 SECONDS (9.7-12.2)
[2017-11-12] MEDS: (Novolog) Insulin Aspart, Recombinant 100 u/ml 10 ml vial SC SCH ×3 (06:38→18:07)
[2017-11-12] MEDS: Vasopressin 40 UNITS in Dextrose 5% In Water 38 ML IV SCH ×2 (06:58→08:30)
[2017-11-12 07:09] LABS: ALB/GLOB RATIO 0.9 (1.0-2.1); ALBUMIN 2.8 g/dL (3.5-5.0); CALCIUM 6.9 mg/dl (8.6-10.4)
[2017-11-12 07:23] LABS: HEPATITIS A IGM NEGATIVE (NEGATIVE); HEPATITIS B CORE AB NEGATIVE (NEGATIVE); HEPATITIS B SURFACE AG Negative (NEGATIVE); HEPATITIS C ANTIBODY NEGATIVE (NEGATIVE)
[2017-11-12] MEDS: Multivitamin Vitamin B Complex (Nephro-Vite) Tab PO SCH (08:23)
[2017-11-12] MEDS: Meropenem 500 MG in Sodium Chloride 0.9% 100 ML IVPB SCH (10:04)
[2017-11-12 11:08] LABS: NEUT # 11.4 K/uL (1.8-7.0)
[2017-11-12 11:10] LABS: MONO # 1.1 K/uL (0.0-0.8)
[2017-11-12 11:11] LABS: LYMPH # 0.1 K/uL (1.0-4.3)
[2017-11-12 11:28] LABS: BANDS 3 % (0-2); LYMPHOCYTE 3 % (20-40); MONOCYTE 13 % (0-10); MYELOCYTE 1 % (0-0); NEUTROPHIL 80 % (50-75); PLATELET ESTIMATE NORMAL (NORMAL); TOTAL CELLS COUNTED 100
[2017-11-12 11:29] LABS: ANISOCYTOSIS SLIGHT; TARGET CELLS MODERATE
--- NOTE | 2017-11-12 11:46 | CP.PCM.PN ---
Subjective - Date & Time of Evaluation Date of Evaluation: 11/12/17 Time of Evaluation: 11:45 - Subjective Subjective: Nephrology Consultation Note Assessment: critical oligoanuric MACIE likely due to ATN due to shock with ? sepsis ? bile cast nephropathy. other possible causes may include hepato-renal, recent IV contrast exposure: started HD 11/11/17 HAGMA obstructive jaundice HTN, CHF, A fib, morbd obesity moderate TR left 2 cm adrenal adenoma Pancreatic mass hyperphosphatemia Anemia s/p cholecystotomy tube Plan plan for HD today 2nd session maintain hemodynamics stable. avoid hypotension monitor I/O daily weights and renal function with BMP supplement bicarb, should be able to d/c soon added phoslo GI following work up for adrenal adenoma later as outpt once stable Dose meds/antibiotics for reduced GFR <10. Avoid fleets enema/magnesium based laxatives. Avoid nephrotoxins/NSAIDs/ iodinated contrast (unless needed emergently) Glycemic control, Further work up for as per primary team. Thanks for allowing me to participate in care of your patient. will follow with you. Please call if any Qs. had d/w family and team Dr Jairo [place] Office: [phone] CC: tiredness low BP reason for consult: MACIE HPI: Pt is a 77 y/o M with hx of HTN, CHF, A fib, morbd obesity recently diagnosed with jaundice and undergoing work up for it, so far suggestive of pancreatic mass, admitted to [facility] with MACIE, decreased urine output and rise in bili, he was found to have hypotension prior to ERCP hence was transferred to [place]. Pt had dialysis catheter placed and transferred to [facility] for dialysis initiation renal consult for MACIE management. pt feels ill and tired. has decresaed appetite. no aware about kidney disease in past says not making much urine no OTC/nsaids/herba meds CT with contrast done 10/30 evening. cr 10/31 AM 1.0 low BP noted, pt requiring pressors ROS: he denies SOB/chest pain/nausea/vomitting. rest all other neg except as mentioned in HPI Physical Examination: General Appearance: Comfortable, co-operative. Vitals reviewed and noted as below Head; Atraumatic, normocephalic ENT: no ulcers no thrush. Tongue is midline/moist. Oropharynx: no rash or ulcers. EYES: Pupils are equal, round and reactive to light accommodation. Eye muscles and extraocular movement intact. Sclera is icteric. Neck; supple no lymphadenopathy, no thyromegaly or bruit Lungs: normal respiratory rate/effort. Breath sounds appears clear b/l anteriorly Heart: Normal rate. s1s2 normal. No rub or gallop. Extremities: 1+ edema. No varicose veins Neurological: Patient is alert, awake, oriented x 3 follows commands, no focal deifict. NO ASTERIXIS Skin: dry and warm. Normal turgor. No rash. Palpitation: Normal elasticity for age. grossly yellow Abdomen: Abdomen is soft non tender no apparent organomegaly Psych: normal insight. has normal affect and mood MSK: no specific joint tenderness or swelling. Digits and nails normal, no deformity : kidney not palpable. bladder not distended . has siu access: Rt MARK clemens Labs/imaging/EKG reviewed. Past medical history, past surgical history, social history, allergy reviewed and noted as below Family hx; no hx of CKD. rest non contributory work up: left adrenal 2 cm adenoma moderate TR and mildly reduced LVEF UA 100 prot and GNR Bilirubin 36 Objective - Vital Signs/Intake and Output Vital Signs (last 24 hours): Temp Pulse Resp BP Pulse Ox 98.6 F 82 10 L 92/65 L 96 11/12/17 10:00 11/12/17 11:00 11/12/17 11:00 11/12/17 11:00 11/12/17 11:00 Intake and Output: 11/12/17 11/12/17 06:59 18:59 Intake Total 1120.66 311.94 Output Total 580 45 Balance 540.66 266.94 - Medications Medications: Current Medications Calcium Acetate (Phoslo) 1,334 mg PO TIDCC [facility] Last Admin: 11/12/17 08:23 Dose: Not Given Hydrocortisone Sodium Succinate (Solu-Cortef) 50 mg IV Q8 [facility] Last Admin: 11/12/17 05:25 Dose: 50 mg Norepinephrine Bitartrate 8 mg (/ Dextrose) 258 mls @ 7.74 mls/hr IV .Q24H PRN ; Protocol; 4 MCG/MIN PRN Reason: TITRATE PER MD ORDER Last Titration: 11/12/17 07:30 Dose: 8 mcg/min, 15.48 mls/hr Meropenem 500 mg/ Sodium (Chloride) 100 mls @ 100 mls/hr IVPB QAM JAQUELINE PRN Reason: Protocol Last Admin: 11/12/17 10:04 Dose: 100 mls/hr Sodium Bicarbonate 150 meq/ (Dextrose) 1,150 mls @ 42 mls/hr IV .Q24H JAQUELINE Last Admin: 11/11/17 21:30 Dose: 42 mls/hr Vasopressin 40 units/ Dextrose 40 mls @ 2.4 mls/hr IV .[id number] JAQUELINE; 0.04 UNITS/ MIN PRN Reason: Protocol Last Admin: 11/12/17 08:30 Dose: 0.04 units/min, 2.4 mls/hr Insulin Aspart (Novolog) 0 unit SC Q6H JAQUELINE PRN Reason: Protocol Last Admin: 11/12/17 06:38 Dose: Not Given Ondansetron HCl (Zofran Inj) 4 mg IVP Q6 PRN PRN Reason: Nausea/Vomiting Last Admin: 11/12/17 08:22 Dose: 4 mg Pantoprazole Sodium (Protonix Inj) 40 mg IVP DAILY [facility] Last Admin: 11/12/17 10:05 Dose: 40 mg Vitamin B Complex/Vit C/Folic Acid (Nephro-Ken) 1 tab PO 0800 [facility] Last Admin: 11/12/17 08:23 Dose: Not Given - Labs Labs: 11/12/17 06:08 11/12/17 06:09 PT 14.6 SECONDS (9.7-12.2) H 11/12/17 06:09 INR 1.3 11/12/17 06:09 APTT 30 SECONDS (21-34) 11/10/17 17:37
--- NOTE | 2017-11-12 12:20 | CP.CCUPN ---
<Jennie Wagner - Last Filed: 11/12/17 17:29> CCU Subjective - Physician Review Subjective (Free Text): 11/12/17 12:14 77 yo M w/ PMHx of HTN, A. Fib, CHF, admitted for painless jaundice(Tbil 37.6) and [facility] from [facility], in need of emergent HD. Pt was dialyzed 11/11. Complains of weakness, and isolated episode of nausea, pruritus improving. Pt denies SOB , chest pain, palpitations, abdominal pain, vomiting, fever, chills. 11/12/17 12:31 CCU Objective - Vital Signs / Intake & Output Vital Signs (Last 4 hours): Vital Signs Temp Pulse Resp BP Pulse Ox 11/12/17 11:00 82 10 L 92/65 L 96 11/12/17 10:45 78 18 95 11/12/17 10:30 90 18 96/67 L 94 L 11/12/17 10:15 86 12 93 L 11/12/17 10:01 96 H 15 93 L 11/12/17 10:00 98.6 F 93 H 14 105/61 95 11/12/17 09:45 87 14 96 11/12/17 09:00 84 18 104/75 94 L 11/12/17 08:30 74/48 L Intake and Output (Last 8hrs): Intake & Output 11/11/17 11/12/17 11/12/17 22:59 06:59 14:59 Intake Total 1075.0 631.26 311.94 Output Total 640 500 45 Balance 435.0 131.26 266.94 Weight 319 lb 0.142 oz 327 lb 6.183 oz Intake: IV 425.4 171.36 19.14 Intake, IV Amount 649.6 459.9 292.8 Willis port of HD cath 206.7 7.2 9.6 IV port of HD cath 316.9 116.7 73.2 Right Forearm 126 336 210 Oral 0 0 0 Output: Drainage 630 325 Right lower 425 50 cholecystectomy tube Right upper biliary rain 205 275 Urine 10 175 45 Urethral ([place]) 10 175 45 Emesis 0 Other: # Bowel Movements 0 1 - Physical Exam Head: Positive for: Atraumatic, Normocephalic Extroacular Muscles: Positive for: EOMI Conjunctiva: Positive for: Icteric Mouth: Positive for: Moist Mucous Membranes Respiratory/Chest: Positive for: Clear to Auscultation. Negative for: Respiratory Distress, Accessory Muscle Use, Wheezes, Rales, Rhonchi Cardiovascular: Positive for: Regular Rate and Rhythm, Normal S1, S2. Negative for: Murmurs Abdomen: Positive for: Normal Bowel Sounds, Ostomy Tubes (right cystostomy tube , right biliary tube-both w/ dark bilious drainage). Negative for: Tenderness, Distention, Peritoneal Signs, Rebound, Guarding, Mass/Organomegaly Lower Extremity: Positive for: Edema (2+ B/L ). Negative for: CALF TENDERNESS Neurological: Positive for: GCS=15, Speech Normal, Memory Normal Skin: Positive for: Other (jaundiced) Psychiatric: Positive for: Alert, Oriented x 3, Normal Insight, Normal Concentration - Medications Active Medications: Active Medications Generic Name Dose Route Start Last Admin Trade Name Freq PRN Reason Stop Dose Admin Calcium Acetate 1,334 mg 11/11/17 12:00 11/12/17 08:23 Phoslo PO Not Given TIDCC JAQUELINE Hydrocortisone Sodium Succinate 50 mg 11/11/17 11:45 11/12/17 05:25 Solu-Cortef IV 50 mg Q8 JAQUELINE Administration Norepinephrine Bitartrate 8 mg 258 mls @ 7.74 mls/hr 11/10/17 16:04 11/12/17 07:30 / Dextrose IV 8 mcg/min .Q24H PRN 15.48 mls/hr TITRATE PER MD ORDER Titration Protocol 4 MCG/MIN Meropenem 500 mg/ Sodium 100 mls @ 100 mls/hr 11/11/17 10:00 11/12/17 10:04 Chloride IVPB 100 mls/hr QAM JAQUELINE Administration Protocol Sodium Bicarbonate 150 meq/ 1,150 mls @ 42 mls/hr 11/10/17 20:30 11/11/17 21: 30 Dextrose IV 42 mls/hr .Q24H JAQUELINE Administration Vasopressin 40 units/ Dextrose 40 mls @ 2.4 mls/hr 11/10/17 21:30 11/12/17 08 :30 IV 0.04 units/min .[id number] JAQUELINE 2.4 mls/hr Protocol Administration 0.04 UNITS/MIN Insulin Aspart 0 unit 11/11/17 00:00 11/12/17 06:38 Novolog SC Not Given Q6H JAQUELINE Protocol Ondansetron HCl 4 mg 11/11/17 16:49 11/12/17 08:22 Zofran Inj IVP 4 mg Q6 PRN Administration Nausea/Vomiting Pantoprazole Sodium 40 mg 11/11/17 10:00 11/12/17 10:05 Protonix Inj IVP 40 mg DAILY JAQUELINE Administration Vitamin B Complex/Vit C/Folic Acid 1 tab 11/12/17 08:00 11/12/17 08:23 Nephro-Ken PO Not Given 0800 [facility] - Patient Studies Lab Studies: Microbiology Studies 11/11/17 17:37 Gram Stain - Final Bile Body Fluid Culture - Preliminary NO GROWTH AFTER 24 HOURS 11/11/17 17:36 Gram Stain - Final Bile Body Fluid Culture - Preliminary Gram Negative [facility] 11/10/17 18:20 Urine Culture - Final Urine,Macias No Growth (<1,000 CFU/ML) 11/10/17 16:45 Blood Culture - Preliminary Blood-During Dialysis NO GROWTH AFTER 24 HOURS 11/10/17 17:15 Blood Culture - Preliminary Blood-During Dialysis NO GROWTH AFTER 24 HOURS 11/10/17 17:37 MRSA Culture (Admit) - Final Nose MRSA NOT DETECTED Lab Studies 11/12/17 11/12/17 11/12/17 Range/Units 11:19 06:09 06:09 WBC (4.8-10.8) K/uL RBC (4.40-5.90) Mil/uL Hgb (12.0-18.0) g/dL Hct (35.0-51.0) % MCV (80.0-94.0) fL MCH (27.0-31.0) pg MCHC (33.0-37.0) g/dL RDW (11.5-14.5) % Plt Count (130-400) K/uL MPV (7.2-11.7) fL Neut % (Auto) (50.0-75.0) % Lymph % (Auto) (20.0-40.0) % [place] % (Auto) (0.0-10.0) % Eos % (Auto) (0.0-4.0) % Baso % (Auto) (0.0-2.0) % Neut # (Auto) (1.8-7.0) K/uL Lymph # (Auto) (1.0-4.3) K/uL [place] # (Auto) (0.0-0.8) K/uL Eos # (Auto) (0.0-0.7) K/uL Baso # (Auto) (0.0-0.2) K/uL Neutrophils % (Manual) (50-75) % Band Neutrophils % (0-2) % Lymphocytes % (Manual) (20-40) % Monocytes % (Manual) (0-10) % Myelocytes % (0-0) % Platelet Estimate (NORMAL) Anisocytosis (manual) Target Cells PT (9.7-12.2) SECONDS INR Sodium (132-148) mmol/L Potassium (3.6-5.2) mmol/L Chloride (98-107) mmol/L Carbon Dioxide (22-30) mmol/L Anion Gap (10-20) BUN (9-20) mg/dL Creatinine (0.8-1.5) mg/dL Est GFR ( Amer) Est GFR (Non-Af Amer) POC Glucose (mg/dL) 158 H (65-110) mg/dL Random Glucose (75-110) mg/dL Calcium (8.6-10.4) mg/dl Phosphorus (2.5-4.5) mg/dL Magnesium (1.6-2.3) mg/dL Total Bilirubin (0.2-1.3) mg/dL AST (17-59) U/L ALT (21-72) U/L Alkaline Phosphatase (38-126) U/L Total Protein (6.3-8.3) g/dL Albumin (3.5-5.0) g/dL Globulin (2.2-3.9) gm/dL Albumin/Globulin Ratio (1.0-2.1) Alpha Fetoprotein 1.2 (0.0-7.5) ng/mL Carcinoembryonic Ag (0-3.0) ng/mL CA 19-9 Antigen (0-37) U/mL U Random Total Protein (22-128) mg/g creat Hepatitis A IgM Ab Negative (NEGATIVE) Hep Bs Antigen Negative (NEGATIVE) Hep Bs Antibody (NEGATIVE) Hep B Core IgM Ab Negative (NEGATIVE) Hepatitis C Antibody Negative (NEGATIVE) 11/12/17 11/12/17 11/12/17 Range/Units 06:09 06:09 06:08 WBC 12.6 H (4.8-10.8) K/uL RBC 3.32 L (4.40-5.90) Mil/uL Hgb 10.8 L (12.0-18.0) g/dL Hct 30.5 L (35.0-51.0) % MCV 92.1 (80.0-94.0) fL MCH 32.6 H (27.0-31.0) pg MCHC 35.4 (33.0-37.0) g/dL RDW 16.4 H (11.5-14.5) % Plt Count 129 L D (130-400) K/uL MPV 9.8 (7.2-11.7) fL Neut % (Auto) 91.0 H (50.0-75.0) % Lymph % (Auto) 1.0 L (20.0-40.0) % [place] % (Auto) 8.0 (0.0-10.0) % Eos % (Auto) 0.0 (0.0-4.0) % Baso % (Auto) 0.0 (0.0-2.0) % Neut # (Auto) 11.4 H (1.8-7.0) K/uL Lymph # (Auto) 0.1 L (1.0-4.3) K/uL [place] # (Auto) 1.1 H (0.0-0.8) K/uL Eos # (Auto) 0.0 (0.0-0.7) K/uL Baso # (Auto) 0.0 (0.0-0.2) K/uL Neutrophils % (Manual) 80 H (50-75) % Band Neutrophils % 3 H (0-2) % Lymphocytes % (Manual) 3 L (20-40) % Monocytes % (Manual) 13 H (0-10) % Myelocytes % 1 H (0-0) % Platelet Estimate Normal (NORMAL) Anisocytosis (manual) Slight Target Cells Moderate PT 14.6 H (9.7-12.2) SECONDS INR 1.3 Sodium 142 (132-148) mmol/L Potassium 3.7 (3.6-5.2) mmol/L Chloride 106 (98-107) mmol/L Carbon Dioxide 19 L (22-30) mmol/L Anion Gap 20 (10-20) BUN 83 H (9-20) mg/dL Creatinine 6.3 H (0.8-1.5) mg/dL Est GFR ( Amer) 11 Est GFR (Non-Af Amer) 9 POC Glucose (mg/dL) (65-110) mg/dL Random Glucose 153 H (75-110) mg/dL Calcium 6.9 L (8.6-10.4) mg/dl Phosphorus 7.2 H (2.5-4.5) mg/dL Magnesium 2.0 (1.6-2.3) mg/dL Total Bilirubin 36.1 H (0.2-1.3) mg/dL AST 67 H (17-59) U/L ALT 73 H (21-72) U/L Alkaline Phosphatase 287 H (38-126) U/L Total Protein 6.0 L (6.3-8.3) g/dL Albumin 2.8 L (3.5-5.0) g/dL Globulin 3.2 (2.2-3.9) gm/dL Albumin/Globulin Ratio 0.9 L (1.0-2.1) Alpha Fetoprotein (0.0-7.5) ng/mL Carcinoembryonic Ag (0-3.0) ng/mL CA 19-9 Antigen 798 H (0-37) U/mL U Random Total Protein (22-128) mg/g creat Hepatitis A IgM Ab (NEGATIVE) Hep Bs Antigen (NEGATIVE) Hep Bs Antibody (NEGATIVE) Hep B Core IgM Ab (NEGATIVE) Hepatitis C Antibody (NEGATIVE) 11/12/17 11/11/17 11/11/17 Range/Units 05:35 23:34 17:46 WBC (4.8-10.8) K/uL RBC (4.40-5.90) Mil/uL Hgb (12.0-18.0) g/dL Hct (35.0-51.0) % MCV (80.0-94.0) fL MCH (27.0-31.0) pg MCHC (33.0-37.0) g/dL RDW (11.5-14.5) % Plt Count (130-400) K/uL MPV (7.2-11.7) fL Neut % (Auto) (50.0-75.0) % Lymph % (Auto) (20.0-40.0) % [place] % (Auto) (0.0-10.0) % Eos % (Auto) (0.0-4.0) % Baso % (Auto) (0.0-2.0) % Neut # (Auto) (1.8-7.0) K/uL Lymph # (Auto) (1.0-4.3) K/uL [place] # (Auto) (0.0-0.8) K/uL Eos # (Auto) (0.0-0.7) K/uL Baso # (Auto) (0.0-0.2) K/uL Neutrophils % (Manual) (50-75) % Band Neutrophils % (0-2) % Lymphocytes % (Manual) (20-40) % Monocytes % (Manual) (0-10) % Myelocytes % (0-0) % Platelet Estimate (NORMAL) Anisocytosis (manual) Target Cells PT (9.7-12.2) SECONDS INR Sodium (132-148) mmol/L Potassium (3.6-5.2) mmol/L Chloride (98-107) mmol/L Carbon Dioxide (22-30) mmol/L Anion Gap (10-20) BUN (9-20) mg/dL Creatinine (0.8-1.5) mg/dL Est GFR ( Amer) Est GFR (Non-Af Amer) POC Glucose (mg/dL) 156 H 141 H (65-110) mg/dL Random Glucose (75-110) mg/dL Calcium (8.6-10.4) mg/dl Phosphorus (2.5-4.5) mg/dL Magnesium (1.6-2.3) mg/dL Total Bilirubin (0.2-1.3) mg/dL AST (17-59) U/L ALT (21-72) U/L Alkaline Phosphatase (38-126) U/L Total Protein (6.3-8.3) g/dL Albumin (3.5-5.0) g/dL Globulin (2.2-3.9) gm/dL Albumin/Globulin Ratio (1.0-2.1) Alpha Fetoprotein (0.0-7.5) ng/mL Carcinoembryonic Ag 3.4 H (0-3.0) ng/mL CA 19-9 Antigen 853 H (0-37) U/mL U Random Total Protein (22-128) mg/g creat Hepatitis A IgM Ab (NEGATIVE) Hep Bs Antigen Negative (NEGATIVE) Hep Bs Antibody (NEGATIVE) Hep B Core IgM Ab (NEGATIVE) Hepatitis C Antibody (NEGATIVE) 11/11/17 11/11/17 11/11/17 Range/Units 17:46 17:46 17:43 WBC (4.8-10.8) K/uL RBC (4.40-5.90) Mil/uL Hgb (12.0-18.0) g/dL Hct (35.0-51.0) % MCV (80.0-94.0) fL MCH (27.0-31.0) pg MCHC (33.0-37.0) g/dL RDW (11.5-14.5) % Plt Count (130-400) K/uL MPV (7.2-11.7) fL Neut % (Auto) (50.0-75.0) % Lymph % (Auto) (20.0-40.0) % [place] % (Auto) (0.0-10.0) % Eos % (Auto) (0.0-4.0) % Baso % (Auto) (0.0-2.0) % Neut # (Auto) (1.8-7.0) K/uL Lymph # (Auto) (1.0-4.3) K/uL [place] # (Auto) (0.0-0.8) K/uL Eos # (Auto) (0.0-0.7) K/uL Baso # (Auto) (0.0-0.2) K/uL Neutrophils % (Manual) (50-75) % Band Neutrophils % (0-2) % Lymphocytes % (Manual) (20-40) % Monocytes % (Manual) (0-10) % Myelocytes % (0-0) % Platelet Estimate (NORMAL) Anisocytosis (manual) Target Cells PT (9.7-12.2) SECONDS INR Sodium (132-148) mmol/L Potassium (3.6-5.2) mmol/L Chloride (98-107) mmol/L Carbon Dioxide (22-30) mmol/L Anion Gap (10-20) BUN (9-20) mg/dL Creatinine (0.8-1.5) mg/dL Est GFR ( Amer) Est GFR (Non-Af Amer) POC Glucose (mg/dL) 204 H (65-110) mg/dL Random Glucose (75-110) mg/dL Calcium (8.6-10.4) mg/dl Phosphorus (2.5-4.5) mg/dL Magnesium (1.6-2.3) mg/dL Total Bilirubin (0.2-1.3) mg/dL AST (17-59) U/L ALT (21-72) U/L Alkaline Phosphatase (38-126) U/L Total Protein (6.3-8.3) g/dL Albumin (3.5-5.0) g/dL Globulin (2.2-3.9) gm/dL Albumin/Globulin Ratio (1.0-2.1) Alpha Fetoprotein (0.0-7.5) ng/mL Carcinoembryonic Ag (0-3.0) ng/mL CA 19-9 Antigen (0-37) U/mL U Random Total Protein (22-128) mg/g creat Hepatitis A IgM Ab (NEGATIVE) Hep Bs Antigen Negative (NEGATIVE) Hep Bs Antibody Indeterminate (NEGATIVE) Hep B Core IgM Ab Negative (NEGATIVE) Hepatitis C Antibody Negative (NEGATIVE) 11/11/17 11/10/17 Range/Units 12:24 09:50 WBC (4.8-10.8) K/uL RBC (4.40-5.90) Mil/uL Hgb (12.0-18.0) g/dL Hct (35.0-51.0) % MCV (80.0-94.0) fL MCH (27.0-31.0) pg MCHC (33.0-37.0) g/dL RDW (11.5-14.5) % Plt Count (130-400) K/uL MPV (7.2-11.7) fL Neut % (Auto) (50.0-75.0) % Lymph % (Auto) (20.0-40.0) % [place] % (Auto) (0.0-10.0) % Eos % (Auto) (0.0-4.0) % Baso % (Auto) (0.0-2.0) % Neut # (Auto) (1.8-7.0) K/uL Lymph # (Auto) (1.0-4.3) K/uL [place] # (Auto) (0.0-0.8) K/uL Eos # (Auto) (0.0-0.7) K/uL Baso # (Auto) (0.0-0.2) K/uL Neutrophils % (Manual) (50-75) % Band Neutrophils % (0-2) % Lymphocytes % (Manual) (20-40) % Monocytes % (Manual) (0-10) % Myelocytes % (0-0) % Platelet Estimate (NORMAL) Anisocytosis (manual) Target Cells PT (9.7-12.2) SECONDS INR Sodium (132-148) mmol/L Potassium (3.6-5.2) mmol/L Chloride (98-107) mmol/L Carbon Dioxide (22-30) mmol/L Anion Gap (10-20) BUN (9-20) mg/dL Creatinine (0.8-1.5) mg/dL Est GFR ( Amer) Est GFR (Non-Af Amer) POC Glucose (mg/dL) 153 H (65-110) mg/dL Random Glucose (75-110) mg/dL Calcium (8.6-10.4) mg/dl Phosphorus (2.5-4.5) mg/dL Magnesium (1.6-2.3) mg/dL Total Bilirubin (0.2-1.3) mg/dL AST (17-59) U/L ALT (21-72) U/L Alkaline Phosphatase (38-126) U/L Total Protein (6.3-8.3) g/dL Albumin (3.5-5.0) g/dL Globulin (2.2-3.9) gm/dL Albumin/Globulin Ratio (1.0-2.1) Alpha Fetoprotein (0.0-7.5) ng/mL Carcinoembryonic Ag (0-3.0) ng/mL CA 19-9 Antigen (0-37) U/mL U Random Total Protein 1548 H (22-128) mg/g creat Hepatitis A IgM Ab (NEGATIVE) Hep Bs Antigen (NEGATIVE) Hep Bs Antibody (NEGATIVE) Hep B Core IgM Ab (NEGATIVE) Hepatitis C Antibody (NEGATIVE) Laboratory Results - last 24 hr 11/10/17 11/11/17 11/11/17 09:50 12:24 17:43 WBC RBC Hgb Hct MCV MCH MCHC RDW Plt Count MPV Neut % (Auto) Lymph % (Auto) [place] % (Auto) Eos % (Auto) Baso % (Auto) Neut # (Auto) Lymph # (Auto) [place] # (Auto) Eos # (Auto) Baso # (Auto) Neutrophils % (Manual) Band Neutrophils % Lymphocytes % (Manual) Monocytes % (Manual) Myelocytes % Platelet Estimate Anisocytosis (manual) Target Cells PT INR Sodium Potassium Chloride Carbon Dioxide Anion Gap BUN Creatinine Est GFR ( Amer) Est GFR (Non-Af Amer) POC Glucose (mg/dL) 153 H 204 H Random Glucose Calcium Phosphorus Magnesium Total Bilirubin AST ALT Alkaline Phosphatase Total Protein Albumin Globulin Albumin/Globulin Ratio Alpha Fetoprotein Carcinoembryonic Ag CA 19-9 Antigen U Random Total Protein 1548 H Hepatitis A IgM Ab Hep Bs Antigen Hep Bs Antibody Hep B Core IgM Ab Hepatitis C Antibody 11/11/17 11/11/17 11/11/17 17:46 17:46 17:46 WBC RBC Hgb Hct MCV MCH MCHC RDW Plt Count MPV Neut % (Auto) Lymph % (Auto) [place] % (Auto) Eos % (Auto) Baso % (Auto) Neut # (Auto) Lymph # (Auto) [place] # (Auto) Eos # (Auto) Baso # (Auto) Neutrophils % (Manual) Band Neutrophils % Lymphocytes % (Manual) Monocytes % (Manual) Myelocytes % Platelet Estimate Anisocytosis (manual) Target Cells PT INR Sodium Potassium Chloride Carbon Dioxide Anion Gap BUN Creatinine Est GFR ( Amer) Est GFR (Non-Af Amer) POC Glucose (mg/dL) Random Glucose Calcium Phosphorus Magnesium Total Bilirubin AST ALT Alkaline Phosphatase Total Protein Albumin Globulin Albumin/Globulin Ratio Alpha Fetoprotein Carcinoembryonic Ag 3.4 H CA 19-9 Antigen 853 H U Random Total Protein Hepatitis A IgM Ab Hep Bs Antigen Negative Negative Hep Bs Antibody Indeterminate Hep B Core IgM Ab Negative Hepatitis C Antibody Negative 11/11/17 11/12/17 11/12/17 23:34 05:35 06:08 WBC 12.6 H RBC 3.32 L Hgb 10.8 L Hct 30.5 L MCV 92.1 MCH 32.6 H MCHC 35.4 RDW 16.4 H Plt Count 129 L D MPV 9.8 Neut % (Auto) 91.0 H Lymph % (Auto) 1.0 L [place] % (Auto) 8.0 Eos % (Auto) 0.0 Baso % (Auto) 0.0 Neut # (Auto) 11.4 H Lymph # (Auto) 0.1 L [place] # (Auto) 1.1 H Eos # (Auto) 0.0 Baso # (Auto) 0.0 Neutrophils % (Manual) 80 H Band Neutrophils % 3 H Lymphocytes % (Manual) 3 L Monocytes % (Manual) 13 H Myelocytes % 1 H Platelet Estimate Normal Anisocytosis (manual) Slight Target Cells Moderate PT INR Sodium Potassium Chloride Carbon Dioxide Anion Gap BUN Creatinine Est GFR ( Amer) Est GFR (Non-Af Amer) POC Glucose (mg/dL) 141 H 156 H Random Glucose Calcium Phosphorus Magnesium Total Bilirubin AST ALT Alkaline Phosphatase Total Protein Albumin Globulin Albumin/Globulin Ratio Alpha Fetoprotein Carcinoembryonic Ag CA 19-9 Antigen U Random Total Protein Hepatitis A IgM Ab Hep Bs Antigen Hep Bs Antibody Hep B Core IgM Ab Hepatitis C Antibody 11/12/17 11/12/17 11/12/17 06:09 06:09 06:09 WBC RBC Hgb Hct MCV MCH MCHC RDW Plt Count MPV Neut % (Auto) Lymph % (Auto) [place] % (Auto) Eos % (Auto) Baso % (Auto) Neut # (Auto) Lymph # (Auto) [place] # (Auto) Eos # (Auto) Baso # (Auto) Neutrophils % (Manual) Band Neutrophils % Lymphocytes % (Manual) Monocytes % (Manual) Myelocytes % Platelet Estimate Anisocytosis (manual) Target Cells PT 14.6 H INR 1.3 Sodium 142 Potassium 3.7 Chloride 106 Carbon Dioxide 19 L Anion Gap 20 BUN 83 H Creatinine 6.3 H Est GFR ( Amer) 11 Est GFR (Non-Af Amer) 9 POC Glucose (mg/dL) Random Glucose 153 H Calcium 6.9 L Phosphorus 7.2 H Magnesium 2.0 Total Bilirubin 36.1 H AST 67 H ALT 73 H Alkaline Phosphatase 287 H Total Protein 6.0 L Albumin 2.8 L Globulin 3.2 Albumin/Globulin Ratio 0.9 L Alpha Fetoprotein 1.2 Carcinoembryonic Ag CA 19-9 Antigen 798 H U Random Total Protein Hepatitis A IgM Ab Hep Bs Antigen Hep Bs Antibody Hep B Core IgM Ab Hepatitis C Antibody 11/12/17 11/12/17 06:09 11:19 WBC RBC Hgb Hct MCV MCH MCHC RDW Plt Count MPV Neut % (Auto) Lymph % (Auto) [place] % (Auto) Eos % (Auto) Baso % (Auto) Neut # (Auto) Lymph # (Auto) [place] # (Auto) Eos # (Auto) Baso # (Auto) Neutrophils % (Manual) Band Neutrophils % Lymphocytes % (Manual) Monocytes % (Manual) Myelocytes % Platelet Estimate Anisocytosis (manual) Target Cells PT INR Sodium Potassium Chloride Carbon Dioxide Anion Gap BUN Creatinine Est GFR ( Amer) Est GFR (Non-Af Amer) POC Glucose (mg/dL) 158 H Random Glucose Calcium Phosphorus Magnesium Total Bilirubin AST ALT Alkaline Phosphatase Total Protein Albumin Globulin Albumin/Globulin Ratio Alpha Fetoprotein Carcinoembryonic Ag CA 19-9 Antigen U Random Total Protein Hepatitis A IgM Ab Negative Hep Bs Antigen Negative Hep Bs Antibody Hep B Core IgM Ab Negative Hepatitis C Antibody Negative Fingerstick Blood Sugar Results: 156 Review of Systems - Constitutional Constitutional: absent: Fever, Chills - Cardiovascular Cardiovascular: absent: Chest Pain, Dyspnea - Respiratory Respiratory: absent: Cough, Dyspnea - Gastrointestinal Gastrointestinal: Nausea. absent: Abdominal Pain, Vomiting - Genitourinary Genitourinary: absent: Dysuria - Musculoskeletal Musculoskeletal: Muscle Weakness - Integumentary Integumentary: Pruritus (improving) Critical Care Progress Note - Prophylaxis GI Prophylaxis GI: PPI - Nutrition Nutrition: Nutrition Category Date Time Status NPO Diet [DIET] Diets 11/12/17 Breakfast Active Assessment/Plan - Assessment and Plan (Free Text) Assessment: Cardiology: - PMHx of A fib and CHF with EF of 40% on recent echo with global hypokenesis A. A fib - Currently rate controlled - Oral AC on hold for possible procedure A. CHF with EF of 40 % - [place] admission [place] 47891 - Patient currently hypotensive and in septic shock. Currently on Vassopressin and levophed Pulmonology - SOB likely 2/2 CHF exacerbation - CXR on 11/08 showed no active disease - Currently on NC GI A. Painless jaundice - T. Bili on admission was 37.6 - D. Bili 32.5. Alk phos 346. AST 78/ ALT 74 - MRCP done at [facility] on 10/31 showed intra and extrahepatic biliary dilation with common bile duct measuring 17 mm in the seth hepatis - Right cholecystostomy and biliary drains placed 11/11 - GI, Dr. Neville consulted for ERCP, planned for 11/13 - Surgery, Dr. Vaughn is consulted - Pt is hypotensive and currently on pressors. There is concern for ascending cholangitis. Pt afebrile. A&Ox 3. - Currently on Meropenem - Low urine outpt - Macias in place draining dark yellow urine. - Urinalysis on admission positive for blood and 551 RBC Renal A. MACIE on CKD stage IV - BUN/Cr:83/6.3 - HD MWF - RIJ trialysis cath inserted on 11/10/17 - Nephro, Dr. Carolina is consulted Heme/onc - Will check CEA and CA 19-9 for potential malignancy -CEA 3.4, CA 19-9 798 ID A. Septic shock - WBC count down 12.6, from 21.1 - Hypotensive on levophed and vasopressin -solu-cortef 50mg q8 - Repeat blood and urine cultures pending. - Initial urine culture on 11/08 was positive for gram - [facility]. - Currently on Merrem Prophylaxis - Protonix - SCDs - PT/OT <Andres Mcdaniel S - Last Filed: 11/12/17 18:37> CCU Objective - Vital Signs / Intake & Output Vital Signs (Last 4 hours): Vital Signs Temp Pulse Resp BP Pulse Ox 11/12/17 18:00 97.4 F L 11/12/17 15:00 80 15 101/65 97 11/12/17 14:45 139 H 16 93 L Intake and Output (Last 8hrs): Intake & Output 11/12/17 11/12/17 11/12/17 06:59 14:59 22:59 Intake Total 631.26 490.14 237.6 Output Total 500 145 90 Balance 131.26 345.14 147.6 Weight 327 lb 6.183 oz Intake: IV 171.36 19.14 Intake, IV Amount 459.9 471.0 237.6 Willis port of HD cath 7.2 16.8 9.6 IV port of HD cath 116.7 118.2 60 Right Forearm 336 336 168 Oral 0 0 Output: Drainage 325 Right lower 50 cholecystectomy tube Right upper biliary rain 275 Urine 175 145 90 Urethral ([place]) 175 145 90 Other: # Bowel Movements 1 - Medications Active Medications: Active Medications Generic Name Dose Route Start Last Admin Trade Name Freq PRN Reason Stop Dose Admin Calcium Acetate 1,334 mg 11/11/17 12:00 11/12/17 17:12 Phoslo PO Not Given TIDCC JAQUELINE Hydrocortisone Sodium Succinate 50 mg 11/11/17 11:45 11/12/17 14:50 Solu-Cortef IV 50 mg Q8 JAQUELINE Administration Norepinephrine Bitartrate 8 mg 258 mls @ 7.74 mls/hr 11/10/17 16:04 11/12/17 07:30 / Dextrose IV 8 mcg/min .Q24H PRN 15.48 mls/hr TITRATE PER MD ORDER Titration Protocol 4 MCG/MIN Meropenem 500 mg/ Sodium 100 mls @ 100 mls/hr 11/11/17 10:00 11/12/17 10:04 Chloride IVPB 100 mls/hr QAM JAQUELINE Administration Protocol Sodium Bicarbonate 150 meq/ 1,150 mls @ 42 mls/hr 11/10/17 20:30 11/11/17 21: 30 Dextrose IV 42 mls/hr .Q24H JAQUELINE Administration Vasopressin 40 units/ Dextrose 40 mls @ 2.4 mls/hr 11/10/17 21:30 11/12/17 08 :30 IV 0.04 units/min .[id number] JAQUELINE 2.4 mls/hr Protocol Administration 0.04 UNITS/MIN Insulin Aspart 0 unit 11/11/17 00:00 11/12/17 18:07 Novolog SC 1 u Q6H JAQUELINE Administration Protocol Ondansetron HCl 4 mg 11/11/17 16:49 11/12/17 14:52 Zofran Inj IVP 4 mg Q6 PRN Administration Nausea/Vomiting Pantoprazole Sodium 40 mg 11/11/17 10:00 11/12/17 10:05 Protonix Inj IVP 40 mg DAILY JAQUELINE Administration Vitamin B Complex/Vit C/Folic Acid 1 tab 11/12/17 08:00 11/12/17 08:23 Nephro-Ken PO Not Given 0800 [facility] - Patient Studies Lab Studies: Microbiology Studies 11/10/17 16:45 Blood Culture - Preliminary Blood-During Dialysis NO GROWTH AFTER 48 HOURS 11/10/17 17:15 Blood Culture - Preliminary Blood-During Dialysis NO GROWTH AFTER 48 HOURS 11/11/17 17:37 Gram Stain - Final Bile Body Fluid Culture - Preliminary NO GROWTH AFTER 24 HOURS 11/11/17 17:36 Gram Stain - Final Bile Body Fluid Culture - Preliminary Gram Negative [facility] 11/10/17 18:20 Urine Culture - Final Urine,[place] No Growth (<1,000 CFU/ML) Lab Studies 11/12/17 11/12/17 11/12/17 Range/Units 17:39 15:50 11:19 WBC (4.8-10.8) K/uL RBC (4.40-5.90) Mil/uL Hgb (12.0-18.0) g/dL Hct (35.0-51.0) % MCV (80.0-94.0) fL MCH (27.0-31.0) pg MCHC (33.0-37.0) g/dL RDW (11.5-14.5) % Plt Count (130-400) K/uL MPV (7.2-11.7) fL Neut % (Auto) (50.0-75.0) % Lymph % (Auto) (20.0-40.0) % [place] % (Auto) (0.0-10.0) % Eos % (Auto) (0.0-4.0) % Baso % (Auto) (0.0-2.0) % Neut # (Auto) (1.8-7.0) K/uL Lymph # (Auto) (1.0-4.3) K/uL [place] # (Auto) (0.0-0.8) K/uL Eos # (Auto) (0.0-0.7) K/uL Baso # (Auto) (0.0-0.2) K/uL Neutrophils % (Manual) (50-75) % Band Neutrophils % (0-2) % Lymphocytes % (Manual) (20-40) % Monocytes % (Manual) (0-10) % Myelocytes % (0-0) % Platelet Estimate (NORMAL) Anisocytosis (manual) Target Cells PT (9.7-12.2) SECONDS INR Sodium (132-148) mmol/L Potassium (3.6-5.2) mmol/L Chloride (98-107) mmol/L Carbon Dioxide (22-30) mmol/L Anion Gap (10-20) BUN (9-20) mg/dL Creatinine (0.8-1.5) mg/dL Est GFR ( Amer) Est GFR (Non-Af Amer) POC Glucose (mg/dL) 166 H 158 H (65-110) mg/dL Random Glucose (75-110) mg/dL Calcium (8.6-10.4) mg/dl Phosphorus (2.5-4.5) mg/dL Magnesium (1.6-2.3) mg/dL Total Bilirubin (0.2-1.3) mg/dL AST (17-59) U/L ALT (21-72) U/L Alkaline Phosphatase (38-126) U/L Total Protein (6.3-8.3) g/dL Albumin (3.5-5.0) g/dL Globulin (2.2-3.9) gm/dL Albumin/Globulin Ratio (1.0-2.1) Alpha Fetoprotein (0.0-7.5) ng/mL Carcinoembryonic Ag 3.1 H (0-3.0) ng/mL CA 19-9 Antigen (0-37) U/mL U Random Total Protein (22-128) mg/g creat Hepatitis A IgM Ab (NEGATIVE) Hep Bs Antigen (NEGATIVE) Hep Bs Antibody (NEGATIVE) Hep B Core IgM Ab (NEGATIVE) Hepatitis C Antibody (NEGATIVE) 11/12/17 11/12/17 11/12/17 Range/Units 06:09 06:09 06:09 WBC (4.8-10.8) K/uL RBC (4.40-5.90) Mil/uL Hgb (12.0-18.0) g/dL Hct (35.0-51.0) % MCV (80.0-94.0) fL MCH (27.0-31.0) pg MCHC (33.0-37.0) g/dL RDW (11.5-14.5) % Plt Count (130-400) K/uL MPV (7.2-11.7) fL Neut % (Auto) (50.0-75.0) % Lymph % (Auto) (20.0-40.0) % [place] % (Auto) (0.0-10.0) % Eos % (Auto) (0.0-4.0) % Baso % (Auto) (0.0-2.0) % Neut # (Auto) (1.8-7.0) K/uL Lymph # (Auto) (1.0-4.3) K/uL [place] # (Auto) (0.0-0.8) K/uL Eos # (Auto) (0.0-0.7) K/uL Baso # (Auto) (0.0-0.2) K/uL Neutrophils % (Manual) (50-75) % Band Neutrophils % (0-2) % Lymphocytes % (Manual) (20-40) % Monocytes % (Manual) (0-10) % Myelocytes % (0-0) % Platelet Estimate (NORMAL) Anisocytosis (manual) Target Cells PT (9.7-12.2) SECONDS INR Sodium 142 (132-148) mmol/L Potassium 3.7 (3.6-5.2) mmol/L Chloride 106 (98-107) mmol/L Carbon Dioxide 19 L (22-30) mmol/L Anion Gap 20 (10-20) BUN 83 H (9-20) mg/dL Creatinine 6.3 H (0.8-1.5) mg/dL Est GFR ( Amer) 11 Est GFR (Non-Af Amer) 9 POC Glucose (mg/dL) (65-110) mg/dL Random Glucose 153 H (75-110) mg/dL Calcium 6.9 L (8.6-10.4) mg/dl Phosphorus 7.2 H (2.5-4.5) mg/dL Magnesium 2.0 (1.6-2.3) mg/dL Total Bilirubin 36.1 H (0.2-1.3) mg/dL AST 67 H (17-59) U/L ALT 73 H (21-72) U/L Alkaline Phosphatase 287 H (38-126) U/L Total Protein 6.0 L (6.3-8.3) g/dL Albumin 2.8 L (3.5-5.0) g/dL Globulin 3.2 (2.2-3.9) gm/dL Albumin/Globulin Ratio 0.9 L (1.0-2.1) Alpha Fetoprotein 1.2 (0.0-7.5) ng/mL Carcinoembryonic Ag (0-3.0) ng/mL CA 19-9 Antigen 798 H (0-37) U/mL U Random Total Protein (22-128) mg/g creat Hepatitis A IgM Ab Negative (NEGATIVE) Hep Bs Antigen Negative (NEGATIVE) Hep Bs Antibody (NEGATIVE) Hep B Core IgM Ab Negative (NEGATIVE) Hepatitis C Antibody Negative (NEGATIVE) 11/12/17 11/12/17 11/12/17 Range/Units 06:09 06:08 05:35 WBC 12.6 H (4.8-10.8) K/uL RBC 3.32 L (4.40-5.90) Mil/uL Hgb 10.8 L (12.0-18.0) g/dL Hct 30.5 L (35.0-51.0) % MCV 92.1 (80.0-94.0) fL MCH 32.6 H (27.0-31.0) pg MCHC 35.4 (33.0-37.0) g/dL RDW 16.4 H (11.5-14.5) % Plt Count 129 L D (130-400) K/uL MPV 9.8 (7.2-11.7) fL Neut % (Auto) 91.0 H (50.0-75.0) % Lymph % (Auto) 1.0 L (20.0-40.0) % [place] % (Auto) 8.0 (0.0-10.0) % Eos % (Auto) 0.0 (0.0-4.0) % Baso % (Auto) 0.0 (0.0-2.0) % Neut # (Auto) 11.4 H (1.8-7.0) K/uL Lymph # (Auto) 0.1 L (1.0-4.3) K/uL [place] # (Auto) 1.1 H (0.0-0.8) K/uL Eos # (Auto) 0.0 (0.0-0.7) K/uL Baso # (Auto) 0.0 (0.0-0.2) K/uL Neutrophils % (Manual) 80 H (50-75) % Band Neutrophils % 3 H (0-2) % Lymphocytes % (Manual) 3 L (20-40) % Monocytes % (Manual) 13 H (0-10) % Myelocytes % 1 H (0-0) % Platelet Estimate Normal (NORMAL) Anisocytosis (manual) Slight Target Cells Moderate PT 14.6 H (9.7-12.2) SECONDS INR 1.3 Sodium (132-148) mmol/L Potassium (3.6-5.2) mmol/L Chloride (98-107) mmol/L Carbon Dioxide (22-30) mmol/L Anion Gap (10-20) BUN (9-20) mg/dL Creatinine (0.8-1.5) mg/dL Est GFR ( Amer) Est GFR (Non-Af Amer) POC Glucose (mg/dL) 156 H (65-110) mg/dL Random Glucose (75-110) mg/dL Calcium (8.6-10.4) mg/dl Phosphorus (2.5-4.5) mg/dL Magnesium (1.6-2.3) mg/dL Total Bilirubin (0.2-1.3) mg/dL AST (17-59) U/L ALT (21-72) U/L Alkaline Phosphatase (38-126) U/L Total Protein (6.3-8.3) g/dL Albumin (3.5-5.0) g/dL Globulin (2.2-3.9) gm/dL Albumin/Globulin Ratio (1.0-2.1) Alpha Fetoprotein (0.0-7.5) ng/mL Carcinoembryonic Ag (0-3.0) ng/mL CA 19-9 Antigen (0-37) U/mL U Random Total Protein (22-128) mg/g creat Hepatitis A IgM Ab (NEGATIVE) Hep Bs Antigen (NEGATIVE) Hep Bs Antibody (NEGATIVE) Hep B Core IgM Ab (NEGATIVE) Hepatitis C Antibody (NEGATIVE) 11/11/17 11/11/17 11/11/17 Range/Units 23:34 17:46 17:46 WBC (4.8-10.8) K/uL RBC (4.40-5.90) Mil/uL Hgb (12.0-18.0) g/dL Hct (35.0-51.0) % MCV (80.0-94.0) fL MCH (27.0-31.0) pg MCHC (33.0-37.0) g/dL RDW (11.5-14.5) % Plt Count (130-400) K/uL MPV (7.2-11.7) fL Neut % (Auto) (50.0-75.0) % Lymph % (Auto) (20.0-40.0) % [place] % (Auto) (0.0-10.0) % Eos % (Auto) (0.0-4.0) % Baso % (Auto) (0.0-2.0) % Neut # (Auto) (1.8-7.0) K/uL Lymph # (Auto) (1.0-4.3) K/uL [place] # (Auto) (0.0-0.8) K/uL Eos # (Auto) (0.0-0.7) K/uL Baso # (Auto) (0.0-0.2) K/uL Neutrophils % (Manual) (50-75) % Band Neutrophils % (0-2) % Lymphocytes % (Manual) (20-40) % Monocytes % (Manual) (0-10) % Myelocytes % (0-0) % Platelet Estimate (NORMAL) Anisocytosis (manual) Target Cells PT (9.7-12.2) SECONDS INR Sodium (132-148) mmol/L Potassium (3.6-5.2) mmol/L Chloride (98-107) mmol/L Carbon Dioxide (22-30) mmol/L Anion Gap (10-20) BUN (9-20) mg/dL Creatinine (0.8-1.5) mg/dL Est GFR ( Amer) Est GFR (Non-Af Amer) POC Glucose (mg/dL) 141 H (65-110) mg/dL Random Glucose (75-110) mg/dL Calcium (8.6-10.4) mg/dl Phosphorus (2.5-4.5) mg/dL Magnesium (1.6-2.3) mg/dL Total Bilirubin (0.2-1.3) mg/dL AST (17-59) U/L ALT (21-72) U/L Alkaline Phosphatase (38-126) U/L Total Protein (6.3-8.3) g/dL Albumin (3.5-5.0) g/dL Globulin (2.2-3.9) gm/dL Albumin/Globulin Ratio (1.0-2.1) Alpha Fetoprotein (0.0-7.5) ng/mL Carcinoembryonic Ag 3.4 H (0-3.0) ng/mL CA 19-9 Antigen 853 H (0-37) U/mL U Random Total Protein (22-128) mg/g creat Hepatitis A IgM Ab (NEGATIVE) Hep Bs Antigen Negative (NEGATIVE) Hep Bs Antibody Indeterminate (NEGATIVE) Hep B Core IgM Ab (NEGATIVE) Hepatitis C Antibody (NEGATIVE) 11/11/17 11/10/17 Range/Units 17:46 09:50 WBC (4.8-10.8) K/uL RBC (4.40-5.90) Mil/uL Hgb (12.0-18.0) g/dL Hct (35.0-51.0) % MCV (80.0-94.0) fL MCH (27.0-31.0) pg MCHC (33.0-37.0) g/dL RDW (11.5-14.5) % Plt Count (130-400) K/uL MPV (7.2-11.7) fL Neut % (Auto) (50.0-75.0) % Lymph % (Auto) (20.0-40.0) % [place] % (Auto) (0.0-10.0) % Eos % (Auto) (0.0-4.0) % Baso % (Auto) (0.0-2.0) % Neut # (Auto) (1.8-7.0) K/uL Lymph # (Auto) (1.0-4.3) K/uL [place] # (Auto) (0.0-0.8) K/uL Eos # (Auto) (0.0-0.7) K/uL Baso # (Auto) (0.0-0.2) K/uL Neutrophils % (Manual) (50-75) % Band Neutrophils % (0-2) % Lymphocytes % (Manual) (20-40) % Monocytes % (Manual) (0-10) % Myelocytes % (0-0) % Platelet Estimate (NORMAL) Anisocytosis (manual) Target Cells PT (9.7-12.2) SECONDS INR Sodium (132-148) mmol/L Potassium (3.6-5.2) mmol/L Chloride (98-107) mmol/L Carbon Dioxide (22-30) mmol/L Anion Gap (10-20) BUN (9-20) mg/dL Creatinine (0.8-1.5) mg/dL Est GFR ( Amer) Est GFR (Non-Af Amer) POC Glucose (mg/dL) (65-110) mg/dL Random Glucose (75-110) mg/dL Calcium (8.6-10.4) mg/dl Phosphorus (2.5-4.5) mg/dL Magnesium (1.6-2.3) mg/dL Total Bilirubin (0.2-1.3) mg/dL AST (17-59) U/L ALT (21-72) U/L Alkaline Phosphatase (38-126) U/L Total Protein (6.3-8.3) g/dL Albumin (3.5-5.0) g/dL Globulin (2.2-3.9) gm/dL Albumin/Globulin Ratio (1.0-2.1) Alpha Fetoprotein (0.0-7.5) ng/mL Carcinoembryonic Ag (0-3.0) ng/mL CA 19-9 Antigen (0-37) U/mL U Random Total Protein 1548 H (22-128) mg/g creat Hepatitis A IgM Ab (NEGATIVE) Hep Bs Antigen Negative (NEGATIVE) Hep Bs Antibody (NEGATIVE) Hep B Core IgM Ab Negative (NEGATIVE) Hepatitis C Antibody Negative (NEGATIVE) Laboratory Results - last 24 hr 11/10/17 11/11/17 11/11/17 09:50 17:46 17:46 WBC RBC Hgb Hct MCV MCH MCHC RDW Plt Count MPV Neut % (Auto) Lymph % (Auto) [place] % (Auto) Eos % (Auto) Baso % (Auto) Neut # (Auto) Lymph # (Auto) [place] # (Auto) Eos # (Auto) Baso # (Auto) Neutrophils % (Manual) Band Neutrophils % Lymphocytes % (Manual) Monocytes % (Manual) Myelocytes % Platelet Estimate Anisocytosis (manual) Target Cells PT INR Sodium Potassium Chloride Carbon Dioxide Anion Gap BUN Creatinine Est GFR ( Amer) Est GFR (Non-Af Amer) POC Glucose (mg/dL) Random Glucose Calcium Phosphorus Magnesium Total Bilirubin AST ALT Alkaline Phosphatase Total Protein Albumin Globulin Albumin/Globulin Ratio Alpha Fetoprotein Carcinoembryonic Ag CA 19-9 Antigen U Random Total Protein 1548 H Hepatitis A IgM Ab Hep Bs Antigen Negative Hep Bs Antibody Indeterminate Hep B Core IgM Ab Negative Hepatitis C Antibody Negative 11/11/17 11/11/17 11/12/17 17:46 23:34 05:35 WBC RBC Hgb Hct MCV MCH MCHC RDW Plt Count MPV Neut % (Auto) Lymph % (Auto) [place] % (Auto) Eos % (Auto) Baso % (Auto) Neut # (Auto) Lymph # (Auto) [place] # (Auto) Eos # (Auto) Baso # (Auto) Neutrophils % (Manual) Band Neutrophils % Lymphocytes % (Manual) Monocytes % (Manual) Myelocytes % Platelet Estimate Anisocytosis (manual) Target Cells PT INR Sodium Potassium Chloride Carbon Dioxide Anion Gap BUN Creatinine Est GFR ( Amer) Est GFR (Non-Af Amer) POC Glucose (mg/dL) 141 H 156 H Random Glucose Calcium Phosphorus Magnesium Total Bilirubin AST ALT Alkaline Phosphatase Total Protein Albumin Globulin Albumin/Globulin Ratio Alpha Fetoprotein Carcinoembryonic Ag 3.4 H CA 19-9 Antigen 853 H U Random Total Protein Hepatitis A IgM Ab Hep Bs Antigen Negative Hep Bs Antibody Hep B Core IgM Ab Hepatitis C Antibody 11/12/17 11/12/17 11/12/17 06:08 06:09 06:09 WBC 12.6 H RBC 3.32 L Hgb 10.8 L Hct 30.5 L MCV 92.1 MCH 32.6 H MCHC 35.4 RDW 16.4 H Plt Count 129 L D MPV 9.8 Neut % (Auto) 91.0 H Lymph % (Auto) 1.0 L [place] % (Auto) 8.0 Eos % (Auto) 0.0 Baso % (Auto) 0.0 Neut # (Auto) 11.4 H Lymph # (Auto) 0.1 L [place] # (Auto) 1.1 H Eos # (Auto) 0.0 Baso # (Auto) 0.0 Neutrophils % (Manual) 80 H Band Neutrophils % 3 H Lymphocytes % (Manual) 3 L Monocytes % (Manual) 13 H Myelocytes % 1 H Platelet Estimate Normal Anisocytosis (manual) Slight Target Cells Moderate PT 14.6 H INR 1.3 Sodium 142 Potassium 3.7 Chloride 106 Carbon Dioxide 19 L Anion Gap 20 BUN 83 H Creatinine 6.3 H Est GFR ( Amer) 11 Est GFR (Non-Af Amer) 9 POC Glucose (mg/dL) Random Glucose 153 H Calcium 6.9 L Phosphorus 7.2 H Magnesium 2.0 Total Bilirubin 36.1 H AST 67 H ALT 73 H Alkaline Phosphatase 287 H Total Protein 6.0 L Albumin 2.8 L Globulin 3.2 Albumin/Globulin Ratio 0.9 L Alpha Fetoprotein Carcinoembryonic Ag CA 19-9 Antigen 798 H U Random Total Protein Hepatitis A IgM Ab Hep Bs Antigen Hep Bs Antibody Hep B Core IgM Ab Hepatitis C Antibody 11/12/17 11/12/17 11/12/17 06:09 06:09 11:19 WBC RBC Hgb Hct MCV MCH MCHC RDW Plt Count MPV Neut % (Auto) Lymph % (Auto) [place] % (Auto) Eos % (Auto) Baso % (Auto) Neut # (Auto) Lymph # (Auto) [place] # (Auto) Eos # (Auto) Baso # (Auto) Neutrophils % (Manual) Band Neutrophils % Lymphocytes % (Manual) Monocytes % (Manual) Myelocytes % Platelet Estimate Anisocytosis (manual) Target Cells PT INR Sodium Potassium Chloride Carbon Dioxide Anion Gap BUN Creatinine Est GFR ( Amer) Est GFR (Non-Af Amer) POC Glucose (mg/dL) 158 H Random Glucose Calcium Phosphorus Magnesium Total Bilirubin AST ALT Alkaline Phosphatase Total Protein Albumin Globulin Albumin/Globulin Ratio Alpha Fetoprotein 1.2 Carcinoembryonic Ag CA 19-9 Antigen U Random Total Protein Hepatitis A IgM Ab Negative Hep Bs Antigen Negative Hep Bs Antibody Hep B Core IgM Ab Negative Hepatitis C Antibody Negative 11/12/17 11/12/17 15:50 17:39 WBC RBC Hgb Hct MCV MCH MCHC RDW Plt Count MPV Neut % (Auto) Lymph % (Auto) [place] % (Auto) Eos % (Auto) Baso % (Auto) Neut # (Auto) Lymph # (Auto) [place] # (Auto) Eos # (Auto) Baso # (Auto) Neutrophils % (Manual) Band Neutrophils % Lymphocytes % (Manual) Monocytes % (Manual) Myelocytes % Platelet Estimate Anisocytosis (manual) Target Cells PT INR Sodium Potassium Chloride Carbon Dioxide Anion Gap BUN Creatinine Est GFR ( Amer) Est GFR (Non-Af Amer) POC Glucose (mg/dL) 166 H Random Glucose Calcium Phosphorus Magnesium Total Bilirubin AST ALT Alkaline Phosphatase Total Protein Albumin Globulin Albumin/Globulin Ratio Alpha Fetoprotein Carcinoembryonic Ag 3.1 H CA 19-9 Antigen U Random Total Protein Hepatitis A IgM Ab Hep Bs Antigen Hep Bs Antibody Hep B Core IgM Ab Hepatitis C Antibody Critical Care Progress Note - Nutrition Nutrition: Nutrition Category Date Time Status NPO Diet [DIET] Diets 11/12/17 Breakfast Active Attending/Attestation - Attestation I have personally seen and examined this patient.: Yes I have fully participated in the care of the patient.: Yes I have reviewed all pertinent clinical information: Yes Notes (Text): 11/12/17 18:35 patient seen and examined in the intensive care unit. Patient is alert oriented 3 Continue antibiotics ERCP tomorrow cont pressors
--- NOTE | 2017-11-12 13:44 | SPECPROC ---
PROCEDURE: DATE OF PROCEDURE: 11/11/2017 Procedure: 1. Percutaneous cholangiogram, CPT 29536 2. Perc. Biliary Drainage (Int. and Ext.), CPT 40483 3. Cholecystostomy tube placement. Medications: Patient received IV sedation along with physiologic monitoring by the interventional radiology nurse, 1 percent lidocaine, fentanyl 50 microgram Versed 1.5 milligram Radiation: 394 mGy Fluoro time: 6.58 minutes Contrast: 50 cc visipaque 320 HISTORY: Biliary obstruction, jaundice, cholecystitis TECHNIQUE: Following informed consent and procedure time-out, patient placed supine on the interventional table. The right abdomen was prepped and draped in the usual sterile fashion. Ultrasound of the right upper quadrant showed multiple dilated intrahepatic bile ducts. The gallbladder is also severely distended. CHOLECYSTOSTOMY TUBE: After the skin was anesthetized 1 percent lidocaine, a needle was advanced under ultrasound guidance into the distended gallbladder. The needle was exchanged over a guidewire for an 8 [place] pigtail drainage catheter which was formed within the gallbladder. Position of the catheters confirmed with contrast injection under fluoroscopy. BILIARY DRAIN: After the skin was anesthetized 1 percent lidocaine, 22 gauge needle was advanced under direct ultrasound guidance into a dilated right hepatic bile duct. Small amount of contrast was injected through the needle which outlined dilated right intrahepatic bile ducts. An 018 guide wire was advanced through the needle into the right hepatic duct. A coaxial dilator was advanced over a needle into the right hepatic bile duct. A cholangiogram was performed which showed severely dilated right and left intrahepatic bile ducts and cut off of contrast seen within the proximal common bile duct. There is a common bile duct mass which extends into the right hepatic duct. A 4 [place] angled catheter was advanced through the coaxial dilator and a glidewire is advanced through the catheter. The occluded common bile duct was successfully crossed. The catheter was advanced small bowel, confirmed by contrast injection. An 10 [place] internal/external biliary drain was then advanced over the wire and formed within small bowel and proximal sideholes within the peripheral right hepatic bile duct. The catheter secured to patient skin and a dressing applied. IMPRESSION: 1. Percutaneous cholangiograms shows moderately dilated right and left intrahepatic bile duct with cut off of contrast column seen in the proximal common bile duct secondary to a CBD mass which extends into the right hepatic duct. . Percutaneous placement of a 10 [place] internal/external biliary drain. 2. Severely distended top gallbladder. Placement of a 8 [place] cholecystostomy tube.
--- NOTE | 2017-11-12 14:06 | CP.PCM.PN ---
Subjective - Date & Time of Evaluation Date of Evaluation: 11/12/17 Time of Evaluation: 01:45 - Subjective Subjective: dictated Objective - Vital Signs/Intake and Output Vital Signs (last 24 hours): Temp Pulse Resp BP Pulse Ox 98.6 F 82 10 L 92/65 L 96 11/12/17 10:00 11/12/17 11:00 11/12/17 11:00 11/12/17 11:00 11/12/17 11:00 Intake and Output: 11/12/17 11/12/17 06:59 18:59 Intake Total 1120.66 430.74 Output Total 580 105 Balance 540.66 325.74 - Medications Medications: Current Medications Calcium Acetate (Phoslo) 1,334 mg PO TIDCC [facility] Last Admin: 11/12/17 12:28 Dose: Not Given Hydrocortisone Sodium Succinate (Solu-Cortef) 50 mg IV Q8 [facility] Last Admin: 11/12/17 05:25 Dose: 50 mg Norepinephrine Bitartrate 8 mg (/ Dextrose) 258 mls @ 7.74 mls/hr IV .Q24H PRN ; Protocol; 4 MCG/MIN PRN Reason: TITRATE PER MD ORDER Last Titration: 11/12/17 07:30 Dose: 8 mcg/min, 15.48 mls/hr Meropenem 500 mg/ Sodium (Chloride) 100 mls @ 100 mls/hr IVPB QAM JAQUELINE PRN Reason: Protocol Last Admin: 11/12/17 10:04 Dose: 100 mls/hr Sodium Bicarbonate 150 meq/ (Dextrose) 1,150 mls @ 42 mls/hr IV .Q24H [facility] Last Admin: 11/11/17 21:30 Dose: 42 mls/hr Vasopressin 40 units/ Dextrose 40 mls @ 2.4 mls/hr IV .[id number] JAQUELINE; 0.04 UNITS/ MIN PRN Reason: Protocol Last Admin: 11/12/17 08:30 Dose: 0.04 units/min, 2.4 mls/hr Insulin Aspart (Novolog) 0 unit SC Q6H JAQUELINE PRN Reason: Protocol Last Admin: 11/12/17 12:28 Dose: Not Given Ondansetron HCl (Zofran Inj) 4 mg IVP Q6 PRN PRN Reason: Nausea/Vomiting Last Admin: 07/10/18 08:22 Dose: 4 mg Pantoprazole Sodium (Protonix Inj) 40 mg IVP DAILY JAQUELINE Last Admin: 11/12/17 10:05 Dose: 40 mg Vitamin B Complex/Vit C/Folic Acid (Nephro-Ken) 1 tab PO 0800 [facility] Last Admin: 11/12/17 08:23 Dose: Not Given - Labs Labs: 11/12/17 06:08 11/12/17 06:09 PT 14.6 SECONDS (9.7-12.2) H 11/12/17 06:09 INR 1.3 11/12/17 06:09 APTT 30 SECONDS (21-34) 11/10/17 17:37
--- NOTE | 2017-11-12 15:51 | CP.PCM.PN ---
Subjective - Date & Time of Evaluation Date of Evaluation: 11/12/17 Time of Evaluation: 15:45 - Subjective Subjective: GI Fellow PGY4, progress note. Patient seen and examined at bedside with family, Christopher and Carissa. Patient states he feels weak and has had multiple BMs today. He is still on 2 pressors. I had long discussion with family regarding possible diagnosis including malignancy. I explained the need for ERCP, staging and possible surgery if indicated. They understand the complexity of the situation and complication of his low blood pressure. All questions were answered to their satisfaction. 12pt ROS completed and negative except for above. Objective - Vital Signs/Intake and Output Vital Signs (last 24 hours): Temp Pulse Resp BP Pulse Ox 97.6 F 80 15 101/65 97 11/12/17 14:00 11/12/17 15:00 11/12/17 15:00 11/12/17 15:00 11/12/17 15:00 Intake and Output: 11/12/17 11/12/17 06:59 18:59 Intake Total 1120.66 549.54 Output Total 580 145 Balance 540.66 404.54 - Medications Medications: Current Medications Calcium Acetate (Phoslo) 1,334 mg PO TIDCC [facility] Last Admin: 11/12/17 12:28 Dose: Not Given Hydrocortisone Sodium Succinate (Solu-Cortef) 50 mg IV Q8 [facility] Last Admin: 11/12/17 14:50 Dose: 50 mg Norepinephrine Bitartrate 8 mg (/ Dextrose) 258 mls @ 7.74 mls/hr IV .Q24H PRN ; Protocol; 4 MCG/MIN PRN Reason: TITRATE PER MD ORDER Last Titration: 11/12/17 07:30 Dose: 8 mcg/min, 15.48 mls/hr Meropenem 500 mg/ Sodium (Chloride) 100 mls @ 100 mls/hr IVPB QAM JAQUELINE PRN Reason: Protocol Last Admin: 11/12/17 10:04 Dose: 100 mls/hr Sodium Bicarbonate 150 meq/ (Dextrose) 1,150 mls @ 42 mls/hr IV .Q24H [facility] Last Admin: 11/11/17 21:30 Dose: 42 mls/hr Vasopressin 40 units/ Dextrose 40 mls @ 2.4 mls/hr IV .[id number] JAQUELINE; 0.04 UNITS/ MIN PRN Reason: Protocol Last Admin: 11/12/17 08:30 Dose: 0.04 units/min, 2.4 mls/hr Insulin Aspart (Novolog) 0 unit SC Q6H JAQUELINE PRN Reason: Protocol Last Admin: 11/12/17 12:28 Dose: Not Given Ondansetron HCl (Zofran Inj) 4 mg IVP Q6 PRN PRN Reason: Nausea/Vomiting Last Admin: 11/12/17 14:52 Dose: 4 mg Pantoprazole Sodium (Protonix Inj) 40 mg IVP DAILY [facility] Last Admin: 11/12/17 10:05 Dose: 40 mg Vitamin B Complex/Vit C/Folic Acid (Nephro-Ken) 1 tab PO 0800 [facility] Last Admin: 11/12/17 08:23 Dose: Not Given - Labs Labs: 11/12/17 06:08 11/12/17 06:09 PT 14.6 SECONDS (9.7-12.2) H 11/12/17 06:09 INR 1.3 11/12/17 06:09 APTT 30 SECONDS (21-34) 11/10/17 17:37 - Constitutional Appears: Toxic, No Acute Distress - Head Exam Head Exam: ATRAUMATIC, NORMAL INSPECTION, NORMOCEPHALIC - Eye Exam Eye Exam: EOMI, Normal appearance, Scleral icterus - ENT Exam ENT Exam: Mucous Membranes Moist, Normal Exam - Respiratory Exam Respiratory Exam: Clear to Ausculation Bilateral, NORMAL BREATHING PATTERN. absent: Wheezes - Cardiovascular Exam Cardiovascular Exam: RRR, +S1, +S2 - GI/Abdominal Exam GI & Abdominal Exam: Soft, Normal Bowel Sounds. absent: Tenderness - Extremities Exam Extremities Exam: Normal Capillary Refill, Normal Inspection - Neurological Exam Neurological Exam: Alert, Awake, CN II-XII Intact - Psychiatric Exam Psychiatric exam: Normal Affect, Normal Mood - Skin Skin Exam: Dry, Intact Additional comments: Jaundice present. Assessment and Plan - Assessment and Plan (Free Text) Assessment: 77yo WM with hx of sytolic CHF, AFIB, recent GI bleed, and reported pancreatic mass presenting with obstructive jaundice, HoTN, septic shock, worsening MACIE and now on HD concerning for acute cholangitis and malignancy. #Painless Obstructive jaundice - Concern for cholangiocarcinoma or pancreatic cancer #Possible acute cholangitis #Recent GI bleed #Hepatosteatosis #Cholelithiasis #Septic shock #Anion Gap Metabolic Acidosis #Elevated INR #Systolic CHF - 2013 cath without significant CAD #Chronic Afib #MACIE on HD Plan: -Continue supportive care -MRCP reviewed and compared to CT abd/pelv report. -S/P PTC and drain 11/11/17 -PTC with biliary drain revealed: "Cholangiogram showed common hepatic mass extending into right hepatic duct". I discussed result with IR and concerned for cholangiocarcinoma. -Diet: NPO in setting of shock -Continue to monitor microbio. No growth to date in blood. -Agree with IV ppi for recent GI bleed and high risk for stress ulcer -Agree with Merem in setting of possible life-threatening acute cholangitis -PENDING labs: Anti-mitochondrial, anti-smooth muscle. Note: CA 19-9 can be falsely elevated in setting of obstructive jaundice so it will need to be followed up if elevated. -CA19-9, CEA significantly elevated, concerning for malignancy. -ERCP with biliary stent recommended when patient more stable for a more permanent solution to obstruction. -Patient would benefit from surgical consult to evaluate the possibility of resection. -Continue NPO status past midnight for possible ERCP tomorrow. -Further management pending clinical progress. We will continue to monitor patient course.
--- NOTE | 2017-11-12 17:35 | CP.PCM.PN ---
Subjective - Date & Time of Evaluation Date of Evaluation: 11/12/17 Time of Evaluation: 17:34 - Subjective Subjective: no cp no sob tried eating today belching no abd pain Objective - Vital Signs/Intake and Output Vital Signs (last 24 hours): Temp Pulse Resp BP Pulse Ox 97.6 F 80 15 101/65 97 11/12/17 14:00 11/12/17 15:00 11/12/17 15:00 11/12/17 15:00 11/12/17 15:00 Intake and Output: 11/12/17 11/12/17 06:59 18:59 Intake Total 1120.66 668.34 Output Total 580 145 Balance 540.66 523.34 - Medications Medications: Current Medications Calcium Acetate (Phoslo) 1,334 mg PO TIDCC [facility] Last Admin: 11/12/17 17:12 Dose: Not Given Hydrocortisone Sodium Succinate (Solu-Cortef) 50 mg IV Q8 [facility] Last Admin: 11/12/17 14:50 Dose: 50 mg Norepinephrine Bitartrate 8 mg (/ Dextrose) 258 mls @ 7.74 mls/hr IV .Q24H PRN ; Protocol; 4 MCG/MIN PRN Reason: TITRATE PER MD ORDER Last Titration: 11/12/17 07:30 Dose: 8 mcg/min, 15.48 mls/hr Meropenem 500 mg/ Sodium (Chloride) 100 mls @ 100 mls/hr IVPB QAM JAQUELINE PRN Reason: Protocol Last Admin: 11/12/17 10:04 Dose: 100 mls/hr Sodium Bicarbonate 150 meq/ (Dextrose) 1,150 mls @ 42 mls/hr IV .Q24H [facility]CLUDES [facility] Last Admin: 11/11/17 21:30 Dose: 42 mls/hr Vasopressin 40 units/ Dextrose 40 mls @ 2.4 mls/hr IV .[id number] JAQUELINE; 0.04 UNITS/ MIN PRN Reason: Protocol Last Admin: 11/12/17 08:30 Dose: 0.04 units/min, 2.4 mls/hr Insulin Aspart (Novolog) 0 unit SC Q6H JAQUELINE PRN Reason: Protocol Last Admin: 11/12/17 12:28 Dose: Not Given Ondansetron HCl (Zofran Inj) 4 mg IVP Q6 PRN PRN Reason: Nausea/Vomiting Last Admin: 11/12/17 14:52 Dose: 4 mg Pantoprazole Sodium (Protonix Inj) 40 mg IVP DAILY [facility] Last Admin: 11/12/17 10:05 Dose: 40 mg Vitamin B Complex/Vit C/Folic Acid (Nephro-Ken) 1 tab PO 0800 [facility] Last Admin: 11/12/17 08:23 Dose: Not Given - Labs Labs: 11/12/17 06:08 11/12/17 06:09 PT 14.6 SECONDS (9.7-12.2) H 11/12/17 06:09 INR 1.3 11/12/17 06:09 APTT 30 SECONDS (21-34) 11/10/17 17:37 - Constitutional Appears: Well, Non-toxic - Head Exam Head Exam: ATRAUMATIC - Eye Exam Eye Exam: Scleral icterus - ENT Exam ENT Exam: Mucous Membranes Dry - Respiratory Exam Respiratory Exam: NORMAL BREATHING PATTERN. absent: Accessory Muscle Use, Clear to Ausculation Bilateral - Cardiovascular Exam Cardiovascular Exam: REGULAR RHYTHM, +S1, +S2 - GI/Abdominal Exam GI & Abdominal Exam: Soft, Organomegaly Additional comments: moribid obesity drain flank - Extremities Exam Extremities Exam: Pedal Edema - Neurological Exam Neurological Exam: Alert, Awake, Oriented x3 - Skin Additional comments: jaundice Assessment and Plan - Assessment and Plan (Free Text) Assessment: S/p Biliary drain Septic Shock still on levophed ?ERCP as stent not feasable per Dr. Jose Surgical resection? Continue ICU care: From ICU note: 77 year old male with past medical history of HTN, A fib, CHF is admitted for painless jaundice with T. Bili of 37.6 and MACIE in need for emergent dialysis. Patient was admitted to [facility] but due to need for emergent dialysis, was transferred to [facility]. Septic Shock due to ascending cholangitis cont abx Acute Renal Failure due to septic shock - MACIE on CKD stage IV getting HD - BUN/Cr: 96/7.3 - Pt will have HD today again on 11/12 - RIJ trialysis cath inserted on 11/10/17 - Dr. Ge Palma is consulted Cardiology: - PMHx of A fib and CHF with EF of 40% on recent echo with global hypokenesis A. A fib - Currently rate controlled - Oral AC on hold for possible procedure Acute on chronic Diastolic CHF with EF of 40 % - Pro-BNP on admission was 57635 - Patient currently hypotensive and in septic shock. 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 Painless jaundice - T. Bili on admission was 37.6 - D. Bili 32.5. Alk phos 346. AST 78/ ALT 74 - MRCP done at [facility] on 10/31 showed intra and extrahepatic biliary dilation with common bile duct measuring 17 mm in the seth hepatis - IR is consulted for emergent cholecystostomy tube - GI, Dr. Neville consulted for ERCP - Surgery, Dr. Vaughn is consulted - Pt is hypotensive and currently on pressors. There is concern for ascending cholangitis. Pt afebrile. A&Ox 3. - Currently on Meropenem - Hematuria
--- NOTE | 2017-11-12 18:37 | CP.PCM.CON ---
History of Present Illness - History of Present Illness History of Present Illness: 77 year old male with a history of CAD, CHF, afib, obstructive jaundice with cholangitis complicated by septic shock, MACIE requiring HD, transferred from [facility] to [facility], with hepatic mass. The patient notes he has been following with GI for elevation of his bilirubin and a pancreatic vs biliary mass by imaging. He was scheduled for ERCP but became ill and went to [facility]. He currently reports to feeling weak. He has some abdominal discomfort. He denies fevers but does have chills. He is s/p cholecystostomy with cholangiogram revealed a hepatic mass with extension into the right common hepatic duct Past medical history: CHF, afib no on anticoagulation for recent GI bleeding Past surgical history: Denies Family history: Parents had lung cancer Social history: Smokes 1 cigar monthly, social alcohol, denies illicit drug use. Allergies: Aspirin, penicillins Review of systems: All remaining review of systems including HEENT, cardiovascular, respiratory, gastrointestinal, genitourinary, musculoskeletal, dermatologic, neurologic, and psychiatric are negative unless mentioned in the HPI. Past Patient History - Infectious Disease Hx of Infectious Diseases: None - Tetanus Immunizations Tetanus Immunization: Unknown - Past Medical History & Family History Past Medical History?: Yes - Past Social History Smoking Status: Current Some Days Smoker - CARDIAC Hx Cardiac Disorders: Yes Hx Cardia Arrhythmia: Yes Hx Circulatory Problems: No Hx Congestive Heart Failure: Yes Hx Heart Murmur: No Hx Heart Transplant: No Hx Hypercholesterolemia: Yes Hx Hypertension: Yes Hx Internal Defibrillator: No Hx Mitral Valve Prolapse: No Hx Pacemaker: No Hx Peripheral Edema: No Hx Peripheral Vascular Disease: No - PULMONARY Hx Respiratory Disorders: No Hx Asthma: No Hx Bronchitis: No Hx Chronic Obstructive Pulmonary Disease (COPD): No Hx Emphysema: No Hx Pneumonia: No Hx Respiratory Aspiration: No Hx Respiratory Tract Infection: No Hx Sleep Apnea: No Hx Tuberculosis: No - NEUROLOGICAL Hx Neurological Disorder: No Hx Alzheimer's Disease: No HX Cerebrovascular Accident: No Hx Dementia: No Hx Dizziness: No Hx Meningitis: No Hx Migraine: No Hx Parkinson's Disease: No Hx Seizures: No Hx Transient Ischemic Attacks (TIA): No - HEENT Hx HEENT Problems: No - RENAL Hx Chronic Kidney Disease: No - ENDOCRINE/METABOLIC Hx Endocrine Disorders: No - HEMATOLOGICAL/ONCOLOGICAL Hx Blood Disorders: No Hx AIDS: No Hx Anemia: No Hx Cancer: No Hx Chemotherapy: No Hx Cirrhosis: No Hx Hepatitis A: No Hx Hepatitis B: No Hx Hepatitis C: No Hx Human Immunodeficiency Virus (HIV): No Hx Metastesis: No Hx Shingles: No Hx Unexplained Bleeding: No - INTEGUMENTARY Hx Dermatological Problems: No - MUSCULOSKELETAL/RHEUMATOLOGICAL Hx Musculoskeletal Disorders: Yes Hx Arthritis: No Hx Back Pain: No Hx Degenerative Joint Disease: No Hx Falls: No Hx Fractures: No Hx Gout: No Hx Herniated Disk: No Hx Myasthenia Gravis: No Hx Osteoarthritis: Yes Hx Osteomyelitis: No Hx Osteoporosis: No Hx Rhabdomyolysis: No Hx Spinal Stenosis: No Hx Unsteady Gait: No - GASTROINTESTINAL Hx Gastrointestinal Disorders: Yes Hx Colostomy: No Hx Crohn's Disease: No Hx Diverticulitis: No Hx Gall Bladder Disease: Yes Hx Gastroesophageal Reflux: No Hx Ileostomy: No Hx Liver Failure: No Hx Pancreatitis: No HX Swallowing Problems: No Hx Ulcer: No - GENITOURINARY/GYNECOLOGICAL Hx Genitourinary Disorders: No - PSYCHIATRIC Hx Psychophysiologic Disorder: No Hx Substance Use: No - SURGICAL HISTORY Hx Surgeries: No Hx Amputation: No Hx Appendectomy: No Hx Cardiac Catheterization: Yes Hx Cholecystectomy: No Hx Coronary Stent: No Hx Gastric Bypass Surgery: No Hx Hysterectomy: No Hx Joint Replacement: No Hx Kidney Transplant: No Hx Liver Transplant: No Hx Mastectomy: No Hx Musculoskeletal Surgery: No Hx Open Heart Surgery: No Hx Orthopedic Surgery: No Hx Splenectomy: No Hx Valve Replacement: No - ANESTHESIA Hx Anesthesia Reactions: No Hx Malignant Hyperthermia: No Meds Allergies/Adverse Reactions: Allergies Allergy/AdvReac Type Severity Reaction Status Date / Time aspirin Allergy ANAPHYLAXIS Verified 11/08/17 14:49 Penicillins Allergy PT DOES Verified 11/08/17 14:49 NOT REMEMBER THE REACTION - Medications Medications: Current Medications Calcium Acetate (Phoslo) 1,334 mg PO TIDCC [facility] Last Admin: 11/12/17 17:12 Dose: Not Given Hydrocortisone Sodium Succinate (Solu-Cortef) 50 mg IV Q8 [facility] Last Admin: 11/12/17 14:50 Dose: 50 mg Norepinephrine Bitartrate 8 mg (/ Dextrose) 258 mls @ 7.74 mls/hr IV .Q24H PRN ; Protocol; 4 MCG/MIN PRN Reason: TITRATE PER MD ORDER Last Titration: 11/12/17 07:30 Dose: 8 mcg/min, 15.48 mls/hr Meropenem 500 mg/ Sodium (Chloride) 100 mls @ 100 mls/hr IVPB QAM JAQUELINE PRN Reason: Protocol Last Admin: 11/12/17 10:04 Dose: 100 mls/hr Sodium Bicarbonate 150 meq/ (Dextrose) 1,150 mls @ 42 mls/hr IV .Q24H [facility] Last Admin: 11/11/17 21:30 Dose: 42 mls/hr Vasopressin 40 units/ Dextrose 40 mls @ 2.4 mls/hr IV .[id number] JAQUELINE; 0.04 UNITS/ MIN PRN Reason: Protocol Last Admin: 11/12/17 08:30 Dose: 0.04 units/min, 2.4 mls/hr Insulin Aspart (Novolog) 0 unit SC Q6H JAQUELINE PRN Reason: Protocol Last Admin: 11/12/17 18:07 Dose: 1 u Ondansetron HCl (Zofran Inj) 4 mg IVP Q6 PRN PRN Reason: Nausea/Vomiting Last Admin: 11/12/17 14:52 Dose: 4 mg Pantoprazole Sodium (Protonix Inj) 40 mg IVP DAILY [facility] Last Admin: 11/12/17 10:05 Dose: 40 mg Vitamin B Complex/Vit C/Folic Acid (Nephro-Ken) 1 tab PO 0800 [facility] Last Admin: 11/12/17 08:23 Dose: Not Given Physical Exam - Head Exam Head Exam: ATRAUMATIC - Eye Exam Eye Exam: Scleral icterus - ENT Exam ENT Exam: Mucous Membranes Dry - Respiratory Exam Respiratory Exam: NORMAL BREATHING PATTERN - Cardiovascular Exam Cardiovascular Exam: +S1, +S2 - GI/Abdominal Exam GI & Abdominal Exam: Normal Bowel Sounds Results - Vital Signs Recent Vital Signs: Last Vital Signs Temp 97.4 F L 11/12/17 18:00 Pulse 80 11/12/17 15:00 Resp 15 11/12/17 15:00 BP 101/65 11/12/17 15:00 Pulse Ox 97 11/12/17 15:00 - Labs Result Diagrams: 11/14/17 06:11 11/14/17 06:11 Labs: Laboratory Results - last 24 hr 11/10/17 11/11/17 11/11/17 09:50 17:46 17:46 WBC RBC Hgb Hct MCV MCH MCHC RDW Plt Count MPV Neut % (Auto) Lymph % (Auto) [place] % (Auto) Eos % (Auto) Baso % (Auto) Neut # (Auto) Lymph # (Auto) [place] # (Auto) Eos # (Auto) Baso # (Auto) Neutrophils % (Manual) Band Neutrophils % Lymphocytes % (Manual) Monocytes % (Manual) Myelocytes % Platelet Estimate Anisocytosis (manual) Target Cells PT INR Sodium Potassium Chloride Carbon Dioxide Anion Gap BUN Creatinine Est GFR ( Amer) Est GFR (Non-Af Amer) POC Glucose (mg/dL) Random Glucose Calcium Phosphorus Magnesium Total Bilirubin AST ALT Alkaline Phosphatase Total Protein Albumin Globulin Albumin/Globulin Ratio Alpha Fetoprotein Carcinoembryonic Ag CA 19-9 Antigen U Random Total Protein 1548 H Hepatitis A IgM Ab Hep Bs Antigen Negative Hep Bs Antibody Indeterminate Hep B Core IgM Ab Negative Hepatitis C Antibody Negative 11/11/17 11/11/17 11/12/17 17:46 23:34 05:35 WBC RBC Hgb Hct MCV MCH MCHC RDW Plt Count MPV Neut % (Auto) Lymph % (Auto) [place] % (Auto) Eos % (Auto) Baso % (Auto) Neut # (Auto) Lymph # (Auto) [place] # (Auto) Eos # (Auto) Baso # (Auto) Neutrophils % (Manual) Band Neutrophils % Lymphocytes % (Manual) Monocytes % (Manual) Myelocytes % Platelet Estimate Anisocytosis (manual) Target Cells PT INR Sodium Potassium Chloride Carbon Dioxide Anion Gap BUN Creatinine Est GFR ( Amer) Est GFR (Non-Af Amer) POC Glucose (mg/dL) 141 H 156 H Random Glucose Calcium Phosphorus Magnesium Total Bilirubin AST ALT Alkaline Phosphatase Total Protein Albumin Globulin Albumin/Globulin Ratio Alpha Fetoprotein Carcinoembryonic Ag 3.4 H CA 19-9 Antigen 853 H U Random Total Protein Hepatitis A IgM Ab Hep Bs Antigen Negative Hep Bs Antibody Hep B Core IgM Ab Hepatitis C Antibody 11/12/17 11/12/17 11/12/17 06:08 06:09 06:09 WBC 12.6 H RBC 3.32 L Hgb 10.8 L Hct 30.5 L MCV 92.1 MCH 32.6 H MCHC 35.4 RDW 16.4 H Plt Count 129 L D MPV 9.8 Neut % (Auto) 91.0 H Lymph % (Auto) 1.0 L Thurston % (Auto) 8.0 Eos % (Auto) 0.0 Baso % (Auto) 0.0 Neut # (Auto) 11.4 H Lymph # (Auto) 0.1 L [place] # (Auto) 1.1 H Eos # (Auto) 0.0 Baso # (Auto) 0.0 Neutrophils % (Manual) 80 H Band Neutrophils % 3 H Lymphocytes % (Manual) 3 L Monocytes % (Manual) 13 H Myelocytes % 1 H Platelet Estimate Normal Anisocytosis (manual) Slight Target Cells Moderate PT 14.6 H INR 1.3 Sodium 142 Potassium 3.7 Chloride 106 Carbon Dioxide 19 L Anion Gap 20 BUN 83 H Creatinine 6.3 H Est GFR ( Amer) 11 Est GFR (Non-Af Amer) 9 POC Glucose (mg/dL) Random Glucose 153 H Calcium 6.9 L Phosphorus 7.2 H Magnesium 2.0 Total Bilirubin 36.1 H AST 67 H ALT 73 H Alkaline Phosphatase 287 H Total Protein 6.0 L Albumin 2.8 L Globulin 3.2 Albumin/Globulin Ratio 0.9 L Alpha Fetoprotein Carcinoembryonic Ag CA 19-9 Antigen 798 H U Random Total Protein Hepatitis A IgM Ab Hep Bs Antigen Hep Bs Antibody Hep B Core IgM Ab Hepatitis C Antibody 11/12/17 11/12/17 11/12/17 06:09 06:09 11:19 WBC RBC Hgb Hct MCV MCH MCHC RDW Plt Count MPV Neut % (Auto) Lymph % (Auto) [place] % (Auto) Eos % (Auto) Baso % (Auto) Neut # (Auto) Lymph # (Auto) [place] # (Auto) Eos # (Auto) Baso # (Auto) Neutrophils % (Manual) Band Neutrophils % Lymphocytes % (Manual) Monocytes % (Manual) Myelocytes % Platelet Estimate Anisocytosis (manual) Target Cells PT INR Sodium Potassium Chloride Carbon Dioxide Anion Gap BUN Creatinine Est GFR ( Amer) Est GFR (Non-Af Amer) POC Glucose (mg/dL) 158 H Random Glucose Calcium Phosphorus Magnesium Total Bilirubin AST ALT Alkaline Phosphatase Total Protein Albumin Globulin Albumin/Globulin Ratio Alpha Fetoprotein 1.2 Carcinoembryonic Ag CA 19-9 Antigen U Random Total Protein Hepatitis A IgM Ab Negative Hep Bs Antigen Negative Hep Bs Antibody Hep B Core IgM Ab Negative Hepatitis C Antibody Negative 11/12/17 11/12/17 15:50 17:39 WBC RBC Hgb Hct MCV MCH MCHC RDW Plt Count MPV Neut % (Auto) Lymph % (Auto) [place] % (Auto) Eos % (Auto) Baso % (Auto) Neut # (Auto) Lymph # (Auto) [place] # (Auto) Eos # (Auto) Baso # (Auto) Neutrophils % (Manual) Band Neutrophils % Lymphocytes % (Manual) Monocytes % (Manual) Myelocytes % Platelet Estimate Anisocytosis (manual) Target Cells PT INR Sodium Potassium Chloride Carbon Dioxide Anion Gap BUN Creatinine Est GFR ( Amer) Est GFR (Non-Af Amer) POC Glucose (mg/dL) 166 H Random Glucose Calcium Phosphorus Magnesium Total Bilirubin AST ALT Alkaline Phosphatase Total Protein Albumin Globulin Albumin/Globulin Ratio Alpha Fetoprotein Carcinoembryonic Ag 3.1 H CA 19-9 Antigen U Random Total Protein Hepatitis A IgM Ab Hep Bs Antigen Hep Bs Antibody Hep B Core IgM Ab Hepatitis C Antibody Assessment & Plan (1) Liver mass Assessment and Plan: suspect malignancy causing obstructive jaundice and cholangitis s/p cholecystostomy will need tissue evaluation once more stable f/u tumor markers Status: Acute (2) Leukocytosis Assessment and Plan: on antibiotics Status: Acute (3) Anemia Assessment and Plan: chronic disease from infection Status: Acute (4) Thrombocytopenia Assessment and Plan: likely sepsis related Thank you for this interesting consult. Status: Acute
[2017-11-12] MEDS: Sodium Bicarbonate 8.4% 150 MEQ in Dextrose 5% In Water 1,000 ML IV SCH (20:16)
--- NOTE | 2017-11-13 00:15 | PN ---
DATE: 11/12/2017 INFECTIOUS DISEASE FOLLOWUP SUBJECTIVE: The patient was seen in ICU. He remains icteric. He was complaining of some nausea he was nauseous. He has triple lumen catheter. He is still on low dose of Levophed. He had cholecystostomy done yesterday and still there is a hepatic or pancreatic mass suspicion. He remains deeply jaundiced. He denies any abdominal pain at this time. PHYSICAL EXAMINATION: VITAL SIGNS: T-max is 98, pulse is 78, blood pressure 106/64, respirations are 15. HEENT: Head is atraumatic, normocephalic. GENERAL: He is obese. NECK: Supple. LUNGS: Clear. HEART: S1 and S2 are regular. ABDOMEN: Has a cholecystostomy tube, which was connected to the bag, but was empty. I saw him around 2 o'clock. EXTREMITIES: Have Venodyne boots on. Labs were noted. Labs show white count is 12.6, hemoglobin 10.8, hematocrit 30.5, platelet count remains low at 129. Neutrophils are 91, lymphs are 1; and his INR is 1.3. Sodium 142, potassium 3.7, chloride is 106, anion gap is 20, BUN is 83, and creatinine 6.3. So, his creatinine still remains high. He has acute renal failure. His bilirubin is still 36.1, AST 67, ALT 73, alk phos is 287. The cultures, CA 19-9 came as 798 and CEA is 3.1, so both are elevated at this time. Micro flores, a culture from the grew gram negative rods, but the blood cultures and urine cultures are negative. He is on meropenem at this time once a day because of his renal insufficiency. IMPRESSION: So, my impression is that the patient has obstructive jaundice with septic shock with a gram negative infection, acute cholecystis with possibility of gastrointestinal malignancy, and I am waiting to continue on vasopressors as needed, and on meropenem, pending gram negative rods ID and sensitivity at this time, and the patient remains acutely ill, also has renal failure and has been getting dialysis, and has morbid obesity. Stephania Abdi MD
[2017-11-13] MEDS: (Novolog) Insulin Aspart, Recombinant 100 u/ml 10 ml vial SC SCH ×5 (02:01→23:40)
[2017-11-13] MEDS: Vasopressin 40 UNITS in Dextrose 5% In Water 38 ML IV SCH ×2 (02:05→19:12)
[2017-11-13 06:25] LABS: INR 1.3; PROTHROMBIN TIME 14.4 SECONDS (9.7-12.2)
[2017-11-13 06:43] LABS: ALB/GLOB RATIO 0.9 (1.0-2.1); ALBUMIN 2.6 g/dL (3.5-5.0); CALCIUM 6.4 mg/dl (8.6-10.4)
[2017-11-13 06:58] LABS: BASO % 0.1 % (0.0-2.0); HEMOGLOBIN 9.9 g/dL (12.0-18.0); LYMPH # 1.2 K/uL (1.0-4.3); LYMPH % 12.4 % (20.0-40.0); MEAN CELL VOLUME 92.3 fL (80.0-94.0); MEAN CORPUSCULAR HEMOGLOBIN 33.5 pg (27.0-31.0); MEAN CORPUSCULAR HGB CONC 36.2 g/dL (33.0-37.0); MEAN PLATELET VOLUME 9.8 fL (7.2-11.7); MONO # 1.4 K/uL (0.0-0.8); NEUT # 6.9 K/uL (1.8-7.0); NEUT % 72.5 % (50.0-75.0); NRBC % 0.1 % (0.0-2.0); RBC 2.95 Mil/uL (4.40-5.90); RED CELL DISTRIBUTION WIDTH 16.1 % (11.5-14.5); WHITE BLOOD COUNT 9.5 K/uL (4.8-10.8)
[2017-11-13] MEDS: Multivitamin Vitamin B Complex (Nephro-Vite) Tab PO SCH (08:28)
[2017-11-13] MEDS: Meropenem 500 MG in Sodium Chloride 0.9% 100 ML IVPB SCH (09:20)
--- NOTE | 2017-11-13 10:18 | CP.PCM.PN ---
Subjective - Date & Time of Evaluation Date of Evaluation: 11/13/17 Time of Evaluation: 10:14 - Subjective Subjective: GI Fellow PGY4, Progress Note. Patient seen and examined at bedside. Overnight events include improved BP and weaned off Levophed. 520cc biliary output lsat 24hrs. No complaints of abdominal pain, n/v. Patient is hungry. 12pt ROS completed and negative except for above. Objective - Vital Signs/Intake and Output Vital Signs (last 24 hours): Temp Pulse Resp BP Pulse Ox 98.2 F 73 26 H 94/60 L 96 11/13/17 03:44 11/13/17 07:34 11/13/17 07:34 11/13/17 07:25 11/13/17 07:34 Intake and Output: 11/13/17 11/13/17 06:59 18:59 Intake Total 881.11 87.6 Output Total 460 Balance 421.11 87.6 - Medications Medications: Current Medications Calcium Acetate (Phoslo) 1,334 mg PO TIDCC [facility] Last Admin: 11/13/17 08:28 Dose: Not Given Hydrocortisone Sodium Succinate (Solu-Cortef) 50 mg IV Q8 [facility] Last Admin: 11/13/17 06:09 Dose: 50 mg Norepinephrine Bitartrate 8 mg (/ Dextrose) 258 mls @ 7.74 mls/hr IV .Q24H PRN ; Protocol; 4 MCG/MIN PRN Reason: TITRATE PER MD ORDER Last Titration: 11/13/17 00:30 Dose: 0 mcg/min, 0 mls/hr Meropenem 500 mg/ Sodium (Chloride) 100 mls @ 100 mls/hr IVPB QAM [facility] PRN Reason: Protocol Last Admin: 11/13/17 09:20 Dose: 100 mls/hr Sodium Bicarbonate 150 meq/ (Dextrose) 1,150 mls @ 42 mls/hr IV .Q24H [facility] Last Admin: 11/12/17 20:16 Dose: 42 mls/hr Vasopressin 40 units/ Dextrose 40 mls @ 2.4 mls/hr IV .[id number] JAQUELINE; 0.04 UNITS/ MIN PRN Reason: Protocol Last Titration: 11/13/17 04:00 Dose: 0.03 units/min, 1.8 mls/hr Insulin Aspart (Novolog) 0 unit SC Q6H JAQUELINE PRN Reason: Protocol Last Admin: 11/13/17 06:08 Dose: Not Given Ondansetron HCl (Zofran Inj) 4 mg IVP Q6 PRN PRN Reason: Nausea/Vomiting Last Admin: 11/12/17 14:52 Dose: 4 mg Pantoprazole Sodium (Protonix Inj) 40 mg IVP DAILY [facility] Last Admin: 11/13/17 09:20 Dose: 40 mg Vitamin B Complex/Vit C/Folic Acid (Nephro-Ken) 1 tab PO 0800 [facility] Last Admin: 11/13/17 08:28 Dose: Not Given - Labs Labs: 11/13/17 06:13 11/13/17 06:13 PT 14.4 SECONDS (9.7-12.2) H 11/13/17 06:13 INR 1.3 11/13/17 06:13 APTT 30 SECONDS (21-34) 11/10/17 17:37 - Constitutional Appears: Well, No Acute Distress - Head Exam Head Exam: ATRAUMATIC, NORMAL INSPECTION, NORMOCEPHALIC - Eye Exam Eye Exam: EOMI, PERRL, Scleral icterus - ENT Exam ENT Exam: Mucous Membranes Moist, Normal Exam - Respiratory Exam Respiratory Exam: Clear to Ausculation Bilateral, NORMAL BREATHING PATTERN. absent: Wheezes - Cardiovascular Exam Cardiovascular Exam: REGULAR RHYTHM, +S1, +S2 - GI/Abdominal Exam GI & Abdominal Exam: Soft, Normal Bowel Sounds. absent: Tenderness - Extremities Exam Extremities Exam: Normal Capillary Refill, Normal Inspection - Neurological Exam Neurological Exam: Alert, Awake, Oriented x3 - Psychiatric Exam Psychiatric exam: Normal Affect, Normal Mood - Skin Skin Exam: Dry, Intact, Warm. absent: Normal Color Additional comments: Jaundice and excoriations present. Assessment and Plan - Assessment and Plan (Free Text) Assessment: 77yo WM with hx of sytolic CHF, AFIB, recent GI bleed, and reported pancreatic mass presenting with obstructive jaundice, HoTN, septic shock, worsening MACIE and now on HD concerning for acute cholangitis and malignancy. #Painless Obstructive jaundice - Concern for cholangiocarcinoma or pancreatic cancer #acute cholangitis - Bile with GNR, Stenotrophomonas Maltophilia #Recent GI bleed #Hepatosteatosis #Cholelithiasis #Septic shock #Anion Gap Metabolic Acidosis #Elevated INR #Systolic CHF - 2014 cath without significant CAD #Chronic Afib #MACIE on HD Plan: -Continue supportive care -MRCP reviewed and compared to CT abd/pelv report. -S/P PTC and drain 11/11/17 -PTC with biliary drain revealed: "Cholangiogram showed common hepatic mass extending into right hepatic duct". I discussed result with IR and concerned for cholangiocarcinoma. -Defer remaining diet to ICU team -Continue to monitor microbio. + Stenotrophomonas Maltophilia. According to [place] Guide - Reports of multi-drug resistance including PCN, ceph, aztronam and carbapenems. Likely susceptible to Bactrim, flouroquinalones. No in-lab susceptibilities yet. Currently on Merrem. Defer to ID for further Abx management. -Agree with IV ppi for recent GI bleed and high risk for stress ulcer -PENDING labs: Anti-mitochondrial, anti-smooth muscle. -CA19-9, CEA significantly elevated, concerning for malignancy. -Patient would benefit from surgical consult to evaluate the possibility of resection. -Possibly transfer to [place] for specialized care. -Diet: NPO past midnight for possible ERCP tomorrow if clinically stable. PT/ PTT ordered -Further management pending clinical progress. We will continue to monitor patient course.
--- NOTE | 2017-11-13 11:30 | CP.PCM.PN ---
Subjective - Date & Time of Evaluation Date of Evaluation: 11/13/17 Time of Evaluation: 10:00 - Subjective Subjective: Patient seen and examined. Sleeping comfortably in bed. Currently on vasopressin 0.04. Patient scheduled for EGD/ERCP. Objective - Vital Signs/Intake and Output Vital Signs (last 24 hours): Temp Pulse Resp BP Pulse Ox 97.5 F L 84 14 86/60 L 97 11/13/17 08:00 11/13/17 10:04 11/13/17 10:04 11/13/17 10:04 11/13/17 10:04 Intake and Output: 11/13/17 11/13/17 06:59 18:59 Intake Total 881.11 175.2 Output Total 460 Balance 421.11 175.2 - Medications Medications: Current Medications Calcium Acetate (Phoslo) 1,334 mg PO TIDCC [facility] Last Admin: 11/13/17 08:28 Dose: Not Given Hydrocortisone Sodium Succinate (Solu-Cortef) 50 mg IV Q8 [facility] Last Admin: 11/13/17 06:09 Dose: 50 mg Norepinephrine Bitartrate 8 mg (/ Dextrose) 258 mls @ 7.74 mls/hr IV .Q24H PRN ; Protocol; 4 MCG/MIN PRN Reason: TITRATE PER MD ORDER Last Titration: 11/13/17 00:30 Dose: 0 mcg/min, 0 mls/hr Meropenem 500 mg/ Sodium (Chloride) 100 mls @ 100 mls/hr IVPB QAM JAQUELINE PRN Reason: Protocol Last Admin: 11/13/17 09:20 Dose: 100 mls/hr Sodium Bicarbonate 150 meq/ (Dextrose) 1,150 mls @ 42 mls/hr IV .Q24H JAQUELINE Last Admin: 11/12/17 20:16 Dose: 42 mls/hr Vasopressin 40 units/ Dextrose 40 mls @ 2.4 mls/hr IV .[id number] JAQUELINE; 0.04 UNITS/ MIN PRN Reason: Protocol Last Titration: 11/13/17 04:00 Dose: 0.03 units/min, 1.8 mls/hr Insulin Aspart (Novolog) 0 unit SC Q6H JAQUELINE PRN Reason: Protocol Last Admin: 11/13/17 06:08 Dose: Not Given Ondansetron HCl (Zofran Inj) 4 mg IVP Q6 PRN PRN Reason: Nausea/Vomiting Last Admin: 11/12/17 14:52 Dose: 4 mg Pantoprazole Sodium (Protonix Inj) 40 mg IVP DAILY [facility] Last Admin: 11/13/17 09:20 Dose: 40 mg Vitamin B Complex/Vit C/Folic Acid (Nephro-Ken) 1 tab PO 0800 [facility] Last Admin: 11/13/17 08:28 Dose: Not Given - Labs Labs: 11/13/17 06:13 11/13/17 06:13 PT 14.4 SECONDS (9.7-12.2) H 11/13/17 06:13 INR 1.3 11/13/17 06:13 APTT 30 SECONDS (21-34) 11/10/17 17:37 - Constitutional Appears: No Acute Distress, Chronically Ill, Other (jaundice) - Head Exam Head Exam: NORMOCEPHALIC - Eye Exam Eye Exam: Scleral icterus - Respiratory Exam Respiratory Exam: NORMAL BREATHING PATTERN - GI/Abdominal Exam GI & Abdominal Exam: Soft Additional comments: +bilious output from IR drain - Neurological Exam Neurological Exam: Alert, Awake, Oriented x3 - Skin Additional comments: jaundice Assessment and Plan - Assessment and Plan (Free Text) Assessment: 77M w/ obstructive jaundice Plan: NPO F/u EGD/ERCP F/u path results
--- NOTE | 2017-11-13 11:45 | CP.CCUPN ---
<Mendy Das - Last Filed: 11/13/17 11:56> CCU Subjective - Physician Review Subjective (Free Text): 11/11/17 12:45 Pt seen and examined at bedside this am. No acute events overnight. Pt denies having any CP, SOB, abd pain, N/V, F/C. C/O diarrhea. Patient continues to be hypotensive currently on Levophed and vasopressin. Patient producing only minimal urine dark in color. Input 1085, output 145. Positive balance 940. 11/13/17 11:43 Pt seen and examined at bedside. No acute events overnight. Levophed d/christina. Currently on Vassopressin and Solucortef with stable BP. Pt denies having any CP, SOB, abd pain, N/V/D/C, F/C. cholecystostomy drains in place drained 520 overnight of billious fluid. Macias in place CCU Objective - Vital Signs / Intake & Output Vital Signs (Last 4 hours): Vital Signs Temp Pulse Resp BP Pulse Ox 11/13/17 10:04 84 14 86/60 L 97 11/13/17 10:00 78 19 97 11/13/17 09:34 75 17 100/70 95 11/13/17 09:04 74 16 109/68 97 11/13/17 09:00 71 22 97 11/13/17 08:34 80 18 96 11/13/17 08:04 72 13 93/63 L 95 11/13/17 08:00 97.5 F L 73 18 97 Intake and Output (Last 8hrs): Intake & Output 11/12/17 11/13/17 11/13/17 22:59 06:59 14:59 Intake Total 699.8 418.91 219.0 Output Total 325 460 Balance 374.8 -41.09 219.0 Weight 297 lb 2.93 oz Intake: IV 230.2 56.11 Intake, IV Amount 469.6 362.8 219.0 Willis port of HD cath 19.2 17.4 9.0 IV port of HD cath 114.4 9.4 Right Forearm 336 336 210 Output: Drainage 235 285 R lower cholecystostomy 10 35 Right upper biliary rain 225 250 Urine 90 175 Urethral (Macias) 90 175 Other: # Bowel Movements 1 - Physical Exam Head: Positive for: Atraumatic, Normocephalic Extroacular Muscles: Positive for: EOMI Conjunctiva: Positive for: Icteric Mouth: Positive for: Moist Mucous Membranes Respiratory/Chest: Positive for: Clear to Auscultation. Negative for: Respiratory Distress, Accessory Muscle Use, Wheezes, Rales, Rhonchi Cardiovascular: Positive for: Regular Rate and Rhythm, Normal S1, S2 Abdomen: Positive for: Normal Bowel Sounds. Negative for: Tenderness, Distention, Peritoneal Signs, Guarding, Mass/Organomegaly Lower Extremity: Positive for: Edema (2+ B/L ). Negative for: CALF TENDERNESS Neurological: Positive for: GCS=15, Speech Normal, Memory Normal Skin: Positive for: Other (Jaundinced) Psychiatric: Positive for: Alert, Oriented x 3, Normal Insight, Normal Concentration - Medications Active Medications: Active Medications Generic Name Dose Route Start Last Admin Trade Name Freq PRN Reason Stop Dose Admin Calcium Acetate 1,334 mg 11/11/17 12:00 11/13/17 08:28 Phoslo PO Not Given TIDCC JAQUELINE Hydrocortisone Sodium Succinate 50 mg 11/11/17 11:45 11/13/17 06:09 Solu-Cortef IV 50 mg Q8 JAQUELINE Administration Norepinephrine Bitartrate 8 mg 258 mls @ 7.74 mls/hr 11/10/17 16:04 11/13/17 00:30 / Dextrose IV 0 mcg/min .Q24H PRN 0 mls/hr TITRATE PER MD ORDER Titration Protocol 4 MCG/MIN Meropenem 500 mg/ Sodium 100 mls @ 100 mls/hr 11/11/17 10:00 11/13/17 09:20 Chloride IVPB 100 mls/hr QAM JAQUELINE Administration Protocol Sodium Bicarbonate 150 meq/ 1,150 mls @ 42 mls/hr 11/10/17 20:30 11/12/17 20: 16 Dextrose IV 42 mls/hr .Q24H JAQUELINE Administration Vasopressin 40 units/ Dextrose 40 mls @ 2.4 mls/hr 11/10/17 21:30 11/13/17 04 :00 IV 0.03 units/min .[id number] JAQUELINE 1.8 mls/hr Protocol Titration 0.04 UNITS/MIN Insulin Aspart 0 unit 11/11/17 00:00 11/13/17 06:08 Novolog SC Not Given Q6H JAQUELINE Protocol Ondansetron HCl 4 mg 11/11/17 16:49 11/12/17 14:52 Zofran Inj IVP 4 mg Q6 PRN Administration Nausea/Vomiting Pantoprazole Sodium 40 mg 11/11/17 10:00 11/13/17 09:20 Protonix Inj IVP 40 mg DAILY JAQUELINE Administration Vitamin B Complex/Vit C/Folic Acid 1 tab 11/12/17 08:00 11/13/17 08:28 Nephro-Ken PO Not Given 0800 JAQUELINE - Patient Studies Lab Studies: Microbiology Studies 11/11/17 17:36 Gram Stain - Final Bile Body Fluid Culture - Preliminary Stenotrophomonas Maltophilia 11/10/17 16:45 Blood Culture - Preliminary Blood-During Dialysis NO GROWTH AFTER 48 HOURS 11/10/17 17:15 Blood Culture - Preliminary Blood-During Dialysis NO GROWTH AFTER 48 HOURS 11/11/17 17:37 Gram Stain - Final Bile Body Fluid Culture - Preliminary NO GROWTH AFTER 24 HOURS 11/10/17 18:20 Urine Culture - Final Urine,Macias No Growth (<1,000 CFU/ML) Lab Studies 11/13/17 11/13/17 11/13/17 Range/Units 06:13 06:13 06:13 WBC 9.5 (4.8-10.8) K/uL RBC 2.95 L (4.40-5.90) Mil/uL Hgb 9.9 L (12.0-18.0) g/dL Hct 27.2 L (35.0-51.0) % MCV 92.3 (80.0-94.0) fL MCH 33.5 H (27.0-31.0) pg MCHC 36.2 (33.0-37.0) g/dL RDW 16.1 H (11.5-14.5) % Plt Count 115 L (130-400) K/uL MPV 9.8 (7.2-11.7) fL Neut % (Auto) 72.5 (50.0-75.0) % Lymph % (Auto) 12.4 L (20.0-40.0) % [place] % (Auto) 15.0 H (0.0-10.0) % Eos % (Auto) 0.0 (0.0-4.0) % Baso % (Auto) 0.1 (0.0-2.0) % Neut # (Auto) 6.9 (1.8-7.0) K/uL Lymph # (Auto) 1.2 (1.0-4.3) K/uL [place] # (Auto) 1.4 H (0.0-0.8) K/uL Eos # (Auto) 0.0 (0.0-0.7) K/uL Baso # (Auto) 0.0 (0.0-0.2) K/uL PT 14.4 H (9.7-12.2) SECONDS INR 1.3 Sodium 132 (132-148) mmol/L Potassium 3.4 L (3.6-5.2) mmol/L Chloride 95 L (98-107) mmol/L Carbon Dioxide 24 (22-30) mmol/L Anion Gap 16 (10-20) BUN 65 H (9-20) mg/dL Creatinine 4.7 H (0.8-1.5) mg/dL Est GFR ( Amer) 15 Est GFR (Non-Af Amer) 12 POC Glucose (mg/dL) (65-110) mg/dL Random Glucose 385 H (75-110) mg/dL Calcium 6.4 L (8.6-10.4) mg/dl Phosphorus 5.9 H (2.5-4.5) mg/dL Magnesium 1.9 (1.6-2.3) mg/dL Total Bilirubin 30.8 H (0.2-1.3) mg/dL AST 45 (17-59) U/L ALT 63 (21-72) U/L Alkaline Phosphatase 250 H (38-126) U/L Total Protein 5.5 L (6.3-8.3) g/dL Albumin 2.6 L (3.5-5.0) g/dL Globulin 2.9 (2.2-3.9) gm/dL Albumin/Globulin Ratio 0.9 L (1.0-2.1) Carcinoembryonic Ag (0-3.0) ng/mL 11/13/17 11/13/17 11/12/17 Range/Units 06:04 06:01 23:29 WBC (4.8-10.8) K/uL RBC (4.40-5.90) Mil/uL Hgb (12.0-18.0) g/dL Hct (35.0-51.0) % MCV (80.0-94.0) fL MCH (27.0-31.0) pg MCHC (33.0-37.0) g/dL RDW (11.5-14.5) % Plt Count (130-400) K/uL MPV (7.2-11.7) fL Neut % (Auto) (50.0-75.0) % Lymph % (Auto) (20.0-40.0) % [place] % (Auto) (0.0-10.0) % Eos % (Auto) (0.0-4.0) % Baso % (Auto) (0.0-2.0) % Neut # (Auto) (1.8-7.0) K/uL Lymph # (Auto) (1.0-4.3) K/uL [place] # (Auto) (0.0-0.8) K/uL Eos # (Auto) (0.0-0.7) K/uL Baso # (Auto) (0.0-0.2) K/uL PT (9.7-12.2) SECONDS INR Sodium (132-148) mmol/L Potassium (3.6-5.2) mmol/L Chloride (98-107) mmol/L Carbon Dioxide (22-30) mmol/L Anion Gap (10-20) BUN (9-20) mg/dL Creatinine (0.8-1.5) mg/dL Est GFR ( Amer) Est GFR (Non-Af Amer) POC Glucose (mg/dL) 146 H 447 H* 150 H (65-110) mg/dL Random Glucose (75-110) mg/dL Calcium (8.6-10.4) mg/dl Phosphorus (2.5-4.5) mg/dL Magnesium (1.6-2.3) mg/dL Total Bilirubin (0.2-1.3) mg/dL AST (17-59) U/L ALT (21-72) U/L Alkaline Phosphatase (38-126) U/L Total Protein (6.3-8.3) g/dL Albumin (3.5-5.0) g/dL Globulin (2.2-3.9) gm/dL Albumin/Globulin Ratio (1.0-2.1) Carcinoembryonic Ag (0-3.0) ng/mL 11/12/17 11/12/17 Range/Units 17:39 15:50 WBC (4.8-10.8) K/uL RBC (4.40-5.90) Mil/uL Hgb (12.0-18.0) g/dL Hct (35.0-51.0) % MCV (80.0-94.0) fL MCH (27.0-31.0) pg MCHC (33.0-37.0) g/dL RDW (11.5-14.5) % Plt Count (130-400) K/uL MPV (7.2-11.7) fL Neut % (Auto) (50.0-75.0) % Lymph % (Auto) (20.0-40.0) % [place] % (Auto) (0.0-10.0) % Eos % (Auto) (0.0-4.0) % Baso % (Auto) (0.0-2.0) % Neut # (Auto) (1.8-7.0) K/uL Lymph # (Auto) (1.0-4.3) K/uL [place] # (Auto) (0.0-0.8) K/uL Eos # (Auto) (0.0-0.7) K/uL Baso # (Auto) (0.0-0.2) K/uL PT (9.7-12.2) SECONDS INR Sodium (132-148) mmol/L Potassium (3.6-5.2) mmol/L Chloride (98-107) mmol/L Carbon Dioxide (22-30) mmol/L Anion Gap (10-20) BUN (9-20) mg/dL Creatinine (0.8-1.5) mg/dL Est GFR ( Amer) Est GFR (Non-Af Amer) POC Glucose (mg/dL) 166 H (65-110) mg/dL Random Glucose (75-110) mg/dL Calcium (8.6-10.4) mg/dl Phosphorus (2.5-4.5) mg/dL Magnesium (1.6-2.3) mg/dL Total Bilirubin (0.2-1.3) mg/dL AST (17-59) U/L ALT (21-72) U/L Alkaline Phosphatase (38-126) U/L Total Protein (6.3-8.3) g/dL Albumin (3.5-5.0) g/dL Globulin (2.2-3.9) gm/dL Albumin/Globulin Ratio (1.0-2.1) Carcinoembryonic Ag 3.1 H (0-3.0) ng/mL Laboratory Results - last 24 hr 11/12/17 11/12/17 11/12/17 15:50 17:39 23:29 WBC RBC Hgb Hct MCV MCH MCHC RDW Plt Count MPV Neut % (Auto) Lymph % (Auto) [place] % (Auto) Eos % (Auto) Baso % (Auto) Neut # (Auto) Lymph # (Auto) [place] # (Auto) Eos # (Auto) Baso # (Auto) PT INR Sodium Potassium Chloride Carbon Dioxide Anion Gap BUN Creatinine Est GFR ( Amer) Est GFR (Non-Af Amer) POC Glucose (mg/dL) 166 H 150 H Random Glucose Calcium Phosphorus Magnesium Total Bilirubin AST ALT Alkaline Phosphatase Total Protein Albumin Globulin Albumin/Globulin Ratio Carcinoembryonic Ag 3.1 H 11/13/17 11/13/17 11/13/17 06:01 06:04 06:13 WBC 9.5 RBC 2.95 L Hgb 9.9 L Hct 27.2 L MCV 92.3 MCH 33.5 H MCHC 36.2 RDW 16.1 H Plt Count 115 L MPV 9.8 Neut % (Auto) 72.5 Lymph % (Auto) 12.4 L [place] % (Auto) 15.0 H Eos % (Auto) 0.0 Baso % (Auto) 0.1 Neut # (Auto) 6.9 Lymph # (Auto) 1.2 [place] # (Auto) 1.4 H Eos # (Auto) 0.0 Baso # (Auto) 0.0 PT INR Sodium Potassium Chloride Carbon Dioxide Anion Gap BUN Creatinine Est GFR ( Amer) Est GFR (Non-Af Amer) POC Glucose (mg/dL) 447 H* 146 H Random Glucose Calcium Phosphorus Magnesium Total Bilirubin AST ALT Alkaline Phosphatase Total Protein Albumin Globulin Albumin/Globulin Ratio Carcinoembryonic Ag 11/13/17 11/13/17 06:13 06:13 WBC RBC Hgb Hct MCV MCH MCHC RDW Plt Count MPV Neut % (Auto) Lymph % (Auto) [place] % (Auto) Eos % (Auto) Baso % (Auto) Neut # (Auto) Lymph # (Auto) [place] # (Auto) Eos # (Auto) Baso # (Auto) PT 14.4 H INR 1.3 Sodium 132 Potassium 3.4 L Chloride 95 L Carbon Dioxide 24 Anion Gap 16 BUN 65 H Creatinine 4.7 H Est GFR ( Amer) 15 Est GFR (Non-Af Amer) 12 POC Glucose (mg/dL) Random Glucose 385 H Calcium 6.4 L Phosphorus 5.9 H Magnesium 1.9 Total Bilirubin 30.8 H AST 45 ALT 63 Alkaline Phosphatase 250 H Total Protein 5.5 L Albumin 2.6 L Globulin 2.9 Albumin/Globulin Ratio 0.9 L Carcinoembryonic Ag Fingerstick Blood Sugar Results: 146 Review of Systems - EENT Eyes: absent: Blurred Vision, Change in Vision Nose/Mouth/Throat: absent: Nasal Congestion, Nasal Discharge - Cardiovascular Cardiovascular: absent: Chest Pain, Chest Pain with Activity, Edema, Leg Edema - Respiratory Respiratory: absent: Cough, Dyspnea, Wheezing, Chest Congestion - Gastrointestinal Gastrointestinal: absent: Abdominal Pain, Diarrhea, Dysphagia, Nausea, Vomiting - Genitourinary Genitourinary: absent: Dysuria - Musculoskeletal Musculoskeletal: absent: Back Pain, Numbness, Tingling - Integumentary Integumentary: absent: Lesions, Rash - Neurological Neurological: absent: Headaches, Syncope - Psychiatric Psychiatric: absent: Anxiety, Depression Critical Care Progress Note - Extremities/Vascular Does the Patient have a Central Venous Catheter?: Yes Insertion Site: Internal Jugular Vein Does the Patient need a Central Venous Catheter?: Yes Does the Patient have a Macias Catheter?: Yes Does the Patient need a Macias Catheter?: Yes Catheter Insertion Criteria: Need for accurate measurement of output in critically ill patient - Prophylaxis GI Prophylaxis GI: PPI - Prophylaxis DVT Prophylaxis DVT: SCDs - Nutrition Nutrition: Nutrition Category Date Time Status Liquid Diet [DIET] Diets 11/13/17 Lunch Active Assessment/Plan - Assessment and Plan (Free Text) Assessment: Cardiology: - PMHx of A fib and CHF with EF of 40% on recent echo with global hypokenesis A. A fib - Currently rate controlled - Oral AC on hold for possible procedure A. CHF with EF of 40 % - [place] admission [place] 61700 - Pt remains hypotensive on vassopressin and solucortef Pulmonology - SOB likely 2/2 CHF exacerbation - CXR on 11/08 showed no active disease - Currently on NC GI A. Painless jaundice - T bili improvin.8 - MRCP done at [place] on 10/31 showed intra and extrahepatic biliary dilation with common bile duct measuring 17 mm in the seth hepatis - Right cholecystostomy and biliary drains placed 11/11 - GI, Dr. Neville consulted for ERCP, planned for 11/14. Recommend transferring pt to [facility] for specialist care - Surgery, Dr. Vaughn is consulted - Pt is hypotensive and currently on pressors. There is concern for ascending cholangitis. Pt afebrile. A&Ox 3. - Continue meropenem - Will start pt on liquid diet. will make pt NPO past midnight for possible ERCP tomorrow - Positive stool occult, Will hold all oral AC - Negative hepatitis panel - Low urine outpt - Macias in place draining dark yellow urine. - Urinalysis on admission positive for blood and 551 RBC Renal A. MACIE on CKD stage IV - BUN/Cr:83/6.3 - HD MWF - RIJ trialysis cath inserted on 11/10/17 - Nephro, Dr. Carolina is consulted - Continue phoslo and nephrovite Heme/onc -CEA 3.4, CA 19-9 798 - Heme/onc, Dr. Jin is consulted. Endo A. Hyperglycemia - No HgbA1c on record. Hyperglycemia likely 2/2 steroids - Will check HgbA1c - ISS - Accucheck ID A. Septic shock - WBC count improving - Hypotensive on vassopresisn and solucortef - Repeat blood culture grew Stenotrophomonas Maltophilia. Sensitivity pending - Initial urine culture on 11/08 was positive for gram - gasper. - Currently on Merrem Prophylaxis - Protonix - SCDs - PT/OT Carl Mcdaniel - Date & Time Date: 11/13/17 Time: 11:59 <Andres cMdaniel - Last Filed: 11/13/17 18:34> CCU Objective - Vital Signs / Intake & Output Vital Signs (Last 4 hours): Vital Signs Pulse Resp BP Pulse Ox 11/13/17 15:34 72 13 91/61 L 97 11/13/17 15:32 70 12 96/56 L 97 11/13/17 15:04 78 8 L 88/51 L 98 11/13/17 15:00 80 13 95 11/13/17 14:35 80 14 98/48 L 97 Intake and Output (Last 8hrs): Intake & Output 11/13/17 11/13/17 11/13/17 06:59 14:59 22:59 Intake Total 418.91 350.4 49.2 Output Total 460 125 Balance -41.09 225.4 49.2 Weight 297 lb 2.93 oz Intake: IV 56.11 Intake, IV Amount 362.8 350.4 49.2 Willis port of HD cath 17.4 14.4 7.2 IV port of HD cath 9.4 Right Forearm 336 336 42 Output: Drainage 285 R lower cholecystostomy 35 Right upper biliary rain 250 Urine 175 125 Urethral (Macias) 175 125 Urine, Voided 0 Other: # Bowel Movements 1 - Medications Active Medications: Active Medications Generic Name Dose Route Start Last Admin Trade Name Freq PRN Reason Stop Dose Admin Calcium Acetate 1,334 mg 11/11/17 12:00 11/13/17 18:25 Phoslo PO 1,334 mg TIDCC JAQUELINE Administration Hydrocortisone Sodium Succinate 50 mg 11/11/17 11:45 11/13/17 13:42 Solu-Cortef IV 50 mg Q8 JAQUELINE Administration Norepinephrine Bitartrate 8 mg 258 mls @ 7.74 mls/hr 11/10/17 16:04 11/13/17 00:30 / Dextrose IV 0 mcg/min .Q24H PRN 0 mls/hr TITRATE PER MD ORDER Titration Protocol 4 MCG/MIN Meropenem 500 mg/ Sodium 100 mls @ 100 mls/hr 11/11/17 10:00 11/13/17 09:20 Chloride IVPB 100 mls/hr QAM JAQUELINE Administration Protocol Vasopressin 40 units/ Dextrose 40 mls @ 2.4 mls/hr 11/10/17 21:30 11/13/17 04 :00 IV 0.03 units/min .[id number] JAQUELINE 1.8 mls/hr Protocol Titration 0.04 UNITS/MIN Insulin Aspart 0 unit 11/11/17 00:00 11/13/17 18:00 Novolog SC Not Given Q6H [facility] Protocol Ondansetron HCl 4 mg 11/11/17 16:49 11/12/17 14:52 Zofran Inj IVP 4 mg Q6 PRN Administration Nausea/Vomiting Pantoprazole Sodium 40 mg 11/11/17 10:00 11/13/17 09:20 Protonix Inj IVP 40 mg DAILY JAQUELINE Administration Vitamin B Complex/Vit C/Folic Acid 1 tab 11/12/17 08:00 11/13/17 08:28 Nephro-Ken PO Not Given 0800 [facility] - Patient Studies Lab Studies: Microbiology Studies 11/10/17 16:45 Blood Culture - Preliminary Blood-During Dialysis NO GROWTH AFTER 3 DAYS 11/10/17 17:15 Blood Culture - Preliminary Blood-During Dialysis NO GROWTH AFTER 3 DAYS 11/11/17 17:37 Gram Stain - Final Bile Body Fluid Culture - Preliminary NO GROWTH AFTER 2 DAYS 11/11/17 17:36 Gram Stain - Final Bile Body Fluid Culture - Preliminary Stenotrophomonas Maltophilia Lab Studies 11/13/17 11/13/17 11/13/17 Range/Units 11:38 06:13 06:13 WBC (4.8-10.8) K/uL RBC (4.40-5.90) Mil/uL Hgb (12.0-18.0) g/dL Hct (35.0-51.0) % MCV (80.0-94.0) fL MCH (27.0-31.0) pg MCHC (33.0-37.0) g/dL RDW (11.5-14.5) % Plt Count (130-400) K/uL MPV (7.2-11.7) fL Neut % (Auto) (50.0-75.0) % Lymph % (Auto) (20.0-40.0) % [place] % (Auto) (0.0-10.0) % Eos % (Auto) (0.0-4.0) % Baso % (Auto) (0.0-2.0) % Neut # (Auto) (1.8-7.0) K/uL Lymph # (Auto) (1.0-4.3) K/uL [place] # (Auto) (0.0-0.8) K/uL Eos # (Auto) (0.0-0.7) K/uL Baso # (Auto) (0.0-0.2) K/uL PT 14.4 H (9.7-12.2) SECONDS INR 1.3 Sodium 132 (132-148) mmol/L Potassium 3.4 L (3.6-5.2) mmol/L Chloride 95 L (98-107) mmol/L Carbon Dioxide 24 (22-30) mmol/L Anion Gap 16 (10-20) BUN 65 H (9-20) mg/dL Creatinine 4.7 H (0.8-1.5) mg/dL Est GFR ( Amer) 15 Est GFR (Non-Af Amer) 12 POC Glucose (mg/dL) 131 H (65-110) mg/dL Random Glucose 385 H (75-110) mg/dL Calcium 6.4 L (8.6-10.4) mg/dl Phosphorus 5.9 H (2.5-4.5) mg/dL Magnesium 1.9 (1.6-2.3) mg/dL Total Bilirubin 30.8 H (0.2-1.3) mg/dL AST 45 (17-59) U/L ALT 63 (21-72) U/L Alkaline Phosphatase 250 H (38-126) U/L Total Protein 5.5 L (6.3-8.3) g/dL Albumin 2.6 L (3.5-5.0) g/dL Globulin 2.9 (2.2-3.9) gm/dL Albumin/Globulin Ratio 0.9 L (1.0-2.1) 11/13/17 11/13/17 11/13/17 Range/Units 06:13 06:04 06:01 WBC 9.5 (4.8-10.8) K/uL RBC 2.95 L (4.40-5.90) Mil/uL Hgb 9.9 L (12.0-18.0) g/dL Hct 27.2 L (35.0-51.0) % MCV 92.3 (80.0-94.0) fL MCH 33.5 H (27.0-31.0) pg MCHC 36.2 (33.0-37.0) g/dL RDW 16.1 H (11.5-14.5) % Plt Count 115 L (130-400) K/uL MPV 9.8 (7.2-11.7) fL Neut % (Auto) 72.5 (50.0-75.0) % Lymph % (Auto) 12.4 L (20.0-40.0) % [place] % (Auto) 15.0 H (0.0-10.0) % Eos % (Auto) 0.0 (0.0-4.0) % Baso % (Auto) 0.1 (0.0-2.0) % Neut # (Auto) 6.9 (1.8-7.0) K/uL Lymph # (Auto) 1.2 (1.0-4.3) K/uL [place] # (Auto) 1.4 H (0.0-0.8) K/uL Eos # (Auto) 0.0 (0.0-0.7) K/uL Baso # (Auto) 0.0 (0.0-0.2) K/uL PT (9.7-12.2) SECONDS INR Sodium (132-148) mmol/L Potassium (3.6-5.2) mmol/L Chloride (98-107) mmol/L Carbon Dioxide (22-30) mmol/L Anion Gap (10-20) BUN (9-20) mg/dL Creatinine (0.8-1.5) mg/dL Est GFR ( Amer) Est GFR (Non-Af Amer) POC Glucose (mg/dL) 146 H 447 H* (65-110) mg/dL Random Glucose (75-110) mg/dL Calcium (8.6-10.4) mg/dl Phosphorus (2.5-4.5) mg/dL Magnesium (1.6-2.3) mg/dL Total Bilirubin (0.2-1.3) mg/dL AST (17-59) U/L ALT (21-72) U/L Alkaline Phosphatase (38-126) U/L Total Protein (6.3-8.3) g/dL Albumin (3.5-5.0) g/dL Globulin (2.2-3.9) gm/dL Albumin/Globulin Ratio (1.0-2.1) 11/12/17 Range/Units 23:29 WBC (4.8-10.8) K/uL RBC (4.40-5.90) Mil/uL Hgb (12.0-18.0) g/dL Hct (35.0-51.0) % MCV (80.0-94.0) fL MCH (27.0-31.0) pg MCHC (33.0-37.0) g/dL RDW (11.5-14.5) % Plt Count (130-400) K/uL MPV (7.2-11.7) fL Neut % (Auto) (50.0-75.0) % Lymph % (Auto) (20.0-40.0) % [place] % (Auto) (0.0-10.0) % Eos % (Auto) (0.0-4.0) % Baso % (Auto) (0.0-2.0) % Neut # (Auto) (1.8-7.0) K/uL Lymph # (Auto) (1.0-4.3) K/uL [place] # (Auto) (0.0-0.8) K/uL Eos # (Auto) (0.0-0.7) K/uL Baso # (Auto) (0.0-0.2) K/uL PT (9.7-12.2) SECONDS INR Sodium (132-148) mmol/L Potassium (3.6-5.2) mmol/L Chloride (98-107) mmol/L Carbon Dioxide (22-30) mmol/L Anion Gap (10-20) BUN (9-20) mg/dL Creatinine (0.8-1.5) mg/dL Est GFR ( Amer) Est GFR (Non-Af Amer) POC Glucose (mg/dL) 150 H (65-110) mg/dL Random Glucose (75-110) mg/dL Calcium (8.6-10.4) mg/dl Phosphorus (2.5-4.5) mg/dL Magnesium (1.6-2.3) mg/dL Total Bilirubin (0.2-1.3) mg/dL AST (17-59) U/L ALT (21-72) U/L Alkaline Phosphatase (38-126) U/L Total Protein (6.3-8.3) g/dL Albumin (3.5-5.0) g/dL Globulin (2.2-3.9) gm/dL Albumin/Globulin Ratio (1.0-2.1) Laboratory Results - last 24 hr 11/12/17 11/13/17 11/13/17 23:29 06:01 06:04 WBC RBC Hgb Hct MCV MCH MCHC RDW Plt Count MPV Neut % (Auto) Lymph % (Auto) [place] % (Auto) Eos % (Auto) Baso % (Auto) Neut # (Auto) Lymph # (Auto) [place] # (Auto) Eos # (Auto) Baso # (Auto) PT INR Sodium Potassium Chloride Carbon Dioxide Anion Gap BUN Creatinine Est GFR ( Amer) Est GFR (Non-Af Amer) POC Glucose (mg/dL) 150 H 447 H* 146 H Random Glucose Calcium Phosphorus Magnesium Total Bilirubin AST ALT Alkaline Phosphatase Total Protein Albumin Globulin Albumin/Globulin Ratio 11/13/17 11/13/17 11/13/17 06:13 06:13 06:13 WBC 9.5 RBC 2.95 L Hgb 9.9 L Hct 27.2 L MCV 92.3 MCH 33.5 H MCHC 36.2 RDW 16.1 H Plt Count 115 L MPV 9.8 Neut % (Auto) 72.5 Lymph % (Auto) 12.4 L [place] % (Auto) 15.0 H Eos % (Auto) 0.0 Baso % (Auto) 0.1 Neut # (Auto) 6.9 Lymph # (Auto) 1.2 [place] # (Auto) 1.4 H Eos # (Auto) 0.0 Baso # (Auto) 0.0 PT 14.4 H INR 1.3 Sodium 132 Potassium 3.4 L Chloride 95 L Carbon Dioxide 24 Anion Gap 16 BUN 65 H Creatinine 4.7 H Est GFR ( Amer) 15 Est GFR (Non-Af Amer) 12 POC Glucose (mg/dL) Random Glucose 385 H Calcium 6.4 L Phosphorus 5.9 H Magnesium 1.9 Total Bilirubin 30.8 H AST 45 ALT 63 Alkaline Phosphatase 250 H Total Protein 5.5 L Albumin 2.6 L Globulin 2.9 Albumin/Globulin Ratio 0.9 L 11/13/17 11:38 WBC RBC Hgb Hct MCV MCH MCHC RDW Plt Count MPV Neut % (Auto) Lymph % (Auto) [place] % (Auto) Eos % (Auto) Baso % (Auto) Neut # (Auto) Lymph # (Auto) [place] # (Auto) Eos # (Auto) Baso # (Auto) PT INR Sodium Potassium Chloride Carbon Dioxide Anion Gap BUN Creatinine Est GFR ( Amer) Est GFR (Non-Af Amer) POC Glucose (mg/dL) 131 H Random Glucose Calcium Phosphorus Magnesium Total Bilirubin AST ALT Alkaline Phosphatase Total Protein Albumin Globulin Albumin/Globulin Ratio Critical Care Progress Note - Nutrition Nutrition: Nutrition Category Date Time Status NPO Diet [DIET] Diets 11/13/17 Dinner Active Attending/Attestation - Attestation I have personally seen and examined this patient.: Yes I have fully participated in the care of the patient.: Yes I have reviewed all pertinent clinical information: Yes Notes (Text): 11/13/17 18:29 patient seen and examined in the intensive care unit. Continue IV antibiotics Bile cultures noted Cholecystostomy tube in place draining food Possible ERCP tomorrow GI making arrangementfor transfer to another facility CONTINUE PRESENT TREATMENT FOR NOW
--- NOTE | 2017-11-13 15:18 | CP.PCM.PN ---
Subjective - Date & Time of Evaluation Date of Evaluation: 11/13/17 Time of Evaluation: 15:15 - Subjective Subjective: Nephrology Consultation Note Assessment: critical oligoanuric MACIE likely due to ATN due to shock with ? sepsis ? bile cast nephropathy. other possible causes may include hepato-renal, recent IV contrast exposure: started HD 11/11/17 HAGMA obstructive jaundice ? possible cause as pancreatic mass/cholangicarcinoma HTN, CHF, A fib, morbd obesity moderate TR left 2 cm adrenal adenoma hyperphosphatemia Anemia s/p cholecystotomy tube Plan no acute need for dialysis today. UOP better. will re-eval for dialysis need tomorrow. continue to monitor for spontaneous renal recovery maintain hemodynamics stable. avoid hypotension monitor I/O daily weights and renal function with BMP d/c bicarb drip added phoslo, continue same GI, ID following plan for ERCP once stable work up for adrenal adenoma later as outpt once stable Dose meds/antibiotics for reduced GFR <10. Avoid fleets enema/magnesium based laxatives. Avoid nephrotoxins/NSAIDs/ iodinated contrast (unless needed emergently) Glycemic control, Further work up for as per primary team. Thanks for allowing me to participate in care of your patient. will follow with you. Please call if any Qs. had d/w family and team Dr Jairo Carolina Office: [phone] CC: tiredness low BP reason for consult: MACIE HPI: Pt is a 77 y/o M with hx of HTN, CHF, A fib, morbd obesity recently diagnosed with jaundice and undergoing work up for it, so far suggestive of pancreatic mass, admitted to [facility] with MACIE, decreased urine output and rise in bili, he was found to have hypotension prior to ERCP hence was transferred to [place]. Pt had dialysis catheter placed and transferred to [facility] for dialysis initiation renal consult for MACIE management. pt feels ill and tired. has decresaed appetite. no aware about kidney disease in past says not making much urine no OTC/nsaids/herba meds CT with contrast done 10/30 evening. cr 10/31 AM 1.0 low BP noted, pt requiring pressors ROS: he denies SOB/chest pain/nausea/vomitting. rest all other neg except as mentioned in HPI siu removed. Physical Examination: General Appearance: Comfortable, co-operative. no acute distress Vitals reviewed and noted as below Head; Atraumatic, normocephalic ENT: no ulcers no thrush. Tongue is midline/moist. Oropharynx: no rash or ulcers. EYES: Pupils are equal, round and reactive to light accommodation. Eye muscles and extraocular movement intact. Sclera is icteric. Neck; supple no lymphadenopathy, no thyromegaly or bruit Lungs: normal respiratory rate/effort. Breath sounds appears clear b/l anteriorly Heart: Normal rate. s1s2 normal. No rub or gallop. Extremities: 1+ edema. No varicose veins Neurological: Patient is alert, awake, oriented x 3 follows commands, no focal deifict. NO ASTERIXIS Skin: dry and warm. Normal turgor. No rash. Palpitation: Normal elasticity for age. grossly yellow Abdomen: Abdomen is soft non tender no apparent organomegaly Psych: normal insight. has normal affect and mood MSK: no specific joint tenderness or swelling. Digits and nails normal, no deformity : kidney not palpable. bladder not distended . access: Rt MARK clemens Labs/imaging/EKG reviewed. Past medical history, past surgical history, social history, allergy reviewed and noted as below Family hx; no hx of CKD. rest non contributory work up: left adrenal 2 cm adenoma moderate TR and mildly reduced LVEF UA 100 prot and GNR Bilirubin 36 Objective - Vital Signs/Intake and Output Vital Signs (last 24 hours): Temp Pulse Resp BP Pulse Ox 97.5 F L 75 13 103/72 97 11/13/17 08:00 11/13/17 12:04 11/13/17 12:04 11/13/17 12:04 11/13/17 12:04 Intake and Output: 11/13/17 11/13/17 06:59 18:59 Intake Total 881.11 262.8 Output Total 460 Balance 421.11 262.8 - Medications Medications: Current Medications Calcium Acetate (Phoslo) 1,334 mg PO [facility] Last Admin: 11/13/17 13:39 Dose: Not Given Hydrocortisone Sodium Succinate (Solu-Cortef) 50 mg IV Q8 [facility] Last Admin: 11/13/17 13:42 Dose: 50 mg Norepinephrine Bitartrate 8 mg (/ Dextrose) 258 mls @ 7.74 mls/hr IV .Q24H PRN ; Protocol; 4 MCG/MIN PRN Reason: TITRATE PER MD ORDER Last Titration: 11/13/17 00:30 Dose: 0 mcg/min, 0 mls/hr Meropenem 500 mg/ Sodium (Chloride) 100 mls @ 100 mls/hr IVPB QAM [facility] PRN Reason: Protocol Last Admin: 11/13/17 09:20 Dose: 100 mls/hr Sodium Bicarbonate 150 meq/ (Dextrose) 1,150 mls @ 42 mls/hr IV .Q24H [facility] Last Admin: 11/12/17 20:16 Dose: 42 mls/hr Vasopressin 40 units/ Dextrose 40 mls @ 2.4 mls/hr IV .[id number] JAQUELINE; 0.04 UNITS/ MIN PRN Reason: Protocol Last Titration: 11/13/17 04:00 Dose: 0.03 units/min, 1.8 mls/hr Insulin Aspart (Novolog) 0 unit SC Q6H [facility] PRN Reason: Protocol Last Admin: 11/13/17 12:07 Dose: Not Given Ondansetron HCl (Zofran Inj) 4 mg IVP Q6 PRN PRN Reason: Nausea/Vomiting Last Admin: 11/12/17 14:52 Dose: 4 mg Pantoprazole Sodium (Protonix Inj) 40 mg IVP DAILY [facility] Last Admin: 11/13/17 09:20 Dose: 40 mg Vitamin B Complex/Vit C/Folic Acid (Nephro-Ken) 1 tab PO 0800 [facility] Last Admin: 11/13/17 08:28 Dose: Not Given - Labs Labs: 11/13/17 06:13 11/13/17 06:13 PT 14.4 SECONDS (9.7-12.2) H 11/13/17 06:13 INR 1.3 11/13/17 06:13 APTT 30 SECONDS (21-34) 11/10/17 17:37
--- NOTE | 2017-11-13 19:48 | CP.PCM.PN ---
Subjective - Date & Time of Evaluation Date of Evaluation: 11/13/17 Time of Evaluation: 19:44 - Subjective Subjective: spoke with patient at length he is anxious re planned ercp henrique no cp no sob no abd pain currently told me about his and her dx of cancer also his plans for his favorite thing to do would be to go to [place] in [place] Objective - Vital Signs/Intake and Output Vital Signs (last 24 hours): Temp Pulse Resp BP Pulse Ox 97.5 F L 79 13 104/64 96 11/13/17 08:00 11/13/17 18:35 11/13/17 18:35 11/13/17 18:04 11/13/17 18:35 Intake and Output: 11/13/17 11/14/17 18:59 06:59 Intake Total 399.6 1.8 Output Total 525 Balance -125.4 1.8 - Medications Medications: Current Medications Calcium Acetate (Phoslo) 1,334 mg PO [facility] Last Admin: 11/13/17 18:25 Dose: 1,334 mg Hydrocortisone Sodium Succinate (Solu-Cortef) 50 mg IV Q8 [facility] Last Admin: 11/13/17 13:42 Dose: 50 mg Norepinephrine Bitartrate 8 mg (/ Dextrose) 258 mls @ 7.74 mls/hr IV .Q24H PRN ; Protocol; 4 MCG/MIN PRN Reason: TITRATE PER MD ORDER Last Titration: 11/13/17 00:30 Dose: 0 mcg/min, 0 mls/hr Meropenem 500 mg/ Sodium (Chloride) 100 mls @ 100 mls/hr IVPB QAM [facility] PRN Reason: Protocol Last Admin: 11/13/17 09:20 Dose: 100 mls/hr Vasopressin 40 units/ Dextrose 40 mls @ 2.4 mls/hr IV .[id number] JAQUELINE; 0.04 UNITS/ MIN PRN Reason: Protocol Last Admin: 11/13/17 19:12 Dose: Not Given Insulin Aspart (Novolog) 0 unit SC Q6H [facility] PRN Reason: Protocol Last Admin: 11/13/17 18:00 Dose: Not Given Ondansetron HCl (Zofran Inj) 4 mg IVP Q6 PRN PRN Reason: Nausea/Vomiting Last Admin: 11/12/17 14:52 Dose: 4 mg Pantoprazole Sodium (Protonix Inj) 40 mg IVP DAILY [facility] Last Admin: 11/13/17 09:20 Dose: 40 mg Vitamin B Complex/Vit C/Folic Acid (Nephro-Ken) 1 tab PO 0800 [facility] Last Admin: 11/13/17 08:28 Dose: Not Given - Labs Labs: 11/13/17 06:13 11/13/17 06:13 PT 14.4 SECONDS (9.7-12.2) H 11/13/17 06:13 INR 1.3 11/13/17 06:13 APTT 30 SECONDS (21-34) 11/10/17 17:37 - Constitutional Appears: Well, Non-toxic - Head Exam Head Exam: ATRAUMATIC - Eye Exam Eye Exam: Scleral icterus Additional comments: icterus - Respiratory Exam Respiratory Exam: NORMAL BREATHING PATTERN. absent: Accessory Muscle Use - Cardiovascular Exam Cardiovascular Exam: REGULAR RHYTHM, +S1, +S2 - GI/Abdominal Exam GI & Abdominal Exam: Soft, Normal Bowel Sounds, Organomegaly Additional comments: morbid obesity - Neurological Exam Neurological Exam: Alert, Awake, Oriented x3 - Skin Skin Exam: absent: Normal Color Additional comments: jaundiced Assessment and Plan - Assessment and Plan (Free Text) Assessment: S/p Biliary drain Septic Shock ?ERCP as stent not feasable per Dr. Jose Surgical resection? Continue ICU care: From ICU note: 77 year old male with past medical history of HTN, A fib, CHF is admitted for painless jaundice with T. Bili of 37.6 and MACIE in need for emergent dialysis. Patient was admitted to [facility] but due to need for emergent dialysis, was transferred to [facility]. 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 Ge Palma is consulted Cardiology: - PMHx of A fib and CHF with EF of 40% on recent echo with global hypokenesis A. A fib - Currently rate controlled - Oral AC on hold for possible procedure Acute on chronic Diastolic CHF with EF of 40 % - Pro-BNP on admission was 54012 - Patient currently hypotensive and in septic shock. 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 Painless jaundice - T. Bili on admission was 37.6 - D. Bili 32.5. Alk phos 346. AST 78/ ALT 74 - MRCP done at [place] on 10/31 showed intra and extrahepatic biliary dilation with common bile duct measuring 17 mm in the seth hepatis - IR is consulted for emergent cholecystostomy tube - GI, Dr. Neville consulted for ERCP - Surgery, Dr. Vaughn is consulted - Pt is hypotensive and currently on pressors. There is concern for ascending cholangitis. Pt afebrile. A&Ox 3. - Currently on Meropenem - Hematuria
--- NOTE | 2017-11-13 19:54 | CP.PCM.PN ---
Subjective - Date & Time of Evaluation Date of Evaluation: 11/13/17 Time of Evaluation: 02:00 - Subjective Subjective: dictated Objective - Vital Signs/Intake and Output Vital Signs (last 24 hours): Temp Pulse Resp BP Pulse Ox 97.5 F L 78 16 97/66 L 96 11/13/17 08:00 11/13/17 19:34 11/13/17 19:34 11/13/17 19:34 11/13/17 19:34 Intake and Output: 11/13/17 11/14/17 18:59 06:59 Intake Total 399.6 36.9 Output Total 525 Balance -125.4 36.9 - Medications Medications: Current Medications Calcium Acetate (Phoslo) 1,334 mg PO TIDCC [facility] Last Admin: 11/13/17 18:25 Dose: 1,334 mg Hydrocortisone Sodium Succinate (Solu-Cortef) 50 mg IV Q8 [facility] Last Admin: 11/13/17 13:42 Dose: 50 mg Norepinephrine Bitartrate 8 mg (/ Dextrose) 258 mls @ 7.74 mls/hr IV .Q24H PRN ; Protocol; 4 MCG/MIN PRN Reason: TITRATE PER MD ORDER Last Titration: 11/13/17 00:30 Dose: 0 mcg/min, 0 mls/hr Meropenem 500 mg/ Sodium (Chloride) 100 mls @ 100 mls/hr IVPB QAM [facility] PRN Reason: Protocol Last Admin: 11/13/17 09:20 Dose: 100 mls/hr Vasopressin 40 units/ Dextrose 40 mls @ 2.4 mls/hr IV .[id number] JAQUELINE; 0.04 UNITS/ MIN PRN Reason: Protocol Last Titration: 11/13/17 19:30 Dose: 0.02 units/min, 1.5 mls/hr Insulin Aspart (Novolog) 0 unit SC Q6H [facility] PRN Reason: Protocol Last Admin: 11/13/17 18:00 Dose: Not Given Ondansetron HCl (Zofran Inj) 4 mg IVP Q6 PRN PRN Reason: Nausea/Vomiting Last Admin: 11/12/17 14:52 Dose: 4 mg Pantoprazole Sodium (Protonix Inj) 40 mg IVP DAILY [facility] Last Admin: 11/13/17 09:20 Dose: 40 mg Vitamin B Complex/Vit C/Folic Acid (Nephro-Ken) 1 tab PO 0800 [facility] Last Admin: 11/13/17 08:28 Dose: Not Given - Labs Labs: 11/13/17 06:13 11/13/17 06:13 PT 14.4 SECONDS (9.7-12.2) H 11/13/17 06:13 INR 1.3 11/13/17 06:13 APTT 30 SECONDS (21-34) 11/10/17 17:37
--- NOTE | 2017-11-14 01:15 | PN ---
DATE: 11/13/2017 INFECTIOUS DISEASE FOLLOWUP NOTE SUBJECTIVE: The patient was seen today. He was not nauseous. He was concerned about his low blood pressure. Other than that, he said they are going to do the procedure tomorrow, and he had some anxiety about that. He was having this cholecystostomy drained which was draining bile and his numbers were slightly better. I told him, and he remained afebrile. His son was at the bedside. PHYSICAL EXAMINATION: GENERAL: He is obese. He was awake, alert, remains icteric. VITAL SIGNS: T-max is 97.5, pulse 79, blood pressure was 91/61, respirations 13. HEENT: Head is atraumatic, normocephalic. NECK: Supple. LUNGS: Clear. No crackles or rales present. HEART: S1, S2 is regular. ABDOMEN: Remains with a cholecystostomy tube. No guarding, no rigidity present. EXTREMITIES: Had SCDs on, and he said they had removed the Macias catheter. LABORATORY DATA: today, the white count has come down, hemoglobin 9.9, hematocrit 27.2, platelet count is 115. Sodium is 132, potassium is 3.4, chlorides are 95. His creatinine came down to 4.7, BUN is 65, and random glucose is 385. The bile actually grows Stenotrophomonas maltophilia, however, his white count is coming down on Merrem at this time and this bug is generally sensitive more to Bactrim, but we will wait for the sensitivities since white count is coming down anyhow, and we will follow, and his creatinine is also better today and the bilirubin came down to 30. IMPRESSION: He has acute cholecystitis, has a cholecystotomy tube right now, and he will have endoscopic retrograde cholangiopancreatography to rule out any mass, and he is severely jaundiced with obstructive jaundice, came in with septic shock and renal failure and is on dialysis and history of atrial fibrillation in the past and obesity. Stephania Abdi MD
[2017-11-14 06:34] LABS: INR 1.2; PROTHROMBIN TIME 13.2 SECONDS (9.7-12.2)
[2017-11-14 06:41] LABS: ALB/GLOB RATIO 0.8 (1.0-2.1); ALBUMIN 2.4 g/dL (3.5-5.0); CALCIUM 6.3 mg/dl (8.6-10.4)
[2017-11-14 06:42] LABS: MEAN CELL VOLUME 92.4 fL (80.0-94.0); MEAN CORPUSCULAR HEMOGLOBIN 33.9 pg (27.0-31.0); MEAN CORPUSCULAR HGB CONC 36.7 g/dL (33.0-37.0); MEAN PLATELET VOLUME 9.7 fL (7.2-11.7); PLATELET COUNT 123 K/uL (130-400); RBC 2.95 Mil/uL (4.40-5.90); RED CELL DISTRIBUTION WIDTH 16.3 % (11.5-14.5); WHITE BLOOD COUNT 10.1 K/uL (4.8-10.8)
[2017-11-14] MEDS: (Novolog) Insulin Aspart, Recombinant 100 u/ml 10 ml vial SC SCH ×3 (06:44→17:54)
[2017-11-14] MEDS: Vasopressin 40 UNITS in Dextrose 5% In Water 38 ML IV SCH ×2 (06:45→16:51)
--- NOTE | 2017-11-14 08:40 | CP.PCM.PN ---
Subjective - Date & Time of Evaluation Date of Evaluation: 11/14/17 Time of Evaluation: 08:40 - Subjective Subjective: GI Fellow PGY4, progress note. Patient seen and examined at bedside. He seems to be improving clinically. He is no acute distress, making more urine on his own and did not need HD yesterday. BP is improving, only on low dose vasopressin. No complaints of abdominal pain, fever. He admits BMs. 12pt ROS completed and negative except for above. Objective - Vital Signs/Intake and Output Vital Signs (last 24 hours): Temp Pulse Resp BP Pulse Ox 98 F 78 13 79/57 L 96 11/14/17 04:00 11/14/17 07:08 11/14/17 07:08 11/14/17 07:08 11/14/17 07:08 Intake and Output: 11/14/17 11/14/17 06:59 18:59 Intake Total 140.9 0.6 Output Total 780 Balance -639.1 0.6 - Medications Medications: Current Medications Calcium Acetate (Phoslo) 1,334 mg PO [facility]CC [facility] Last Admin: 11/14/17 08:21 Dose: Not Given Hydrocortisone Sodium Succinate (Solu-Cortef) 50 mg IV Q8 [facility] Last Admin: 11/14/17 06:50 Dose: 50 mg Norepinephrine Bitartrate 8 mg (/ Dextrose) 258 mls @ 7.74 mls/hr IV .Q24H PRN ; Protocol; 4 MCG/MIN PRN Reason: TITRATE PER MD ORDER Last Titration: 11/13/17 00:30 Dose: 0 mcg/min, 0 mls/hr Meropenem 500 mg/ Sodium (Chloride) 100 mls @ 100 mls/hr IVPB QAM [facility] PRN Reason: Protocol Last Admin: 11/13/17 09:20 Dose: 100 mls/hr Vasopressin 40 units/ Dextrose 40 mls @ 2.4 mls/hr IV .[id number] [facility]; 0.04 UNITS/ MIN PRN Reason: Protocol Last Titration: 11/14/17 07:00 Dose: 0.03 units/min, 1.8 mls/hr Insulin Aspart (Novolog) 0 unit SC Q6H [facility] PRN Reason: Protocol Last Admin: 11/14/17 06:44 Dose: Not Given Ondansetron HCl (Zofran Inj) 4 mg IVP Q6 PRN PRN Reason: Nausea/Vomiting Last Admin: 11/12/17 14:52 Dose: 4 mg Pantoprazole Sodium (Protonix Inj) 40 mg IVP DAILY [facility] Last Admin: 11/13/17 09:20 Dose: 40 mg Vitamin B Complex/Vit C/Folic Acid (Nephro-Ken) 1 tab PO 0800 [facility] Last Admin: 11/13/17 08:28 Dose: Not Given - Labs Labs: 11/14/17 06:11 11/14/17 06:11 PT 13.2 SECONDS (9.7-12.2) H 11/14/17 06:11 INR 1.2 11/14/17 06:11 APTT 28 SECONDS (21-34) 11/14/17 06:11 - Constitutional Appears: Non-toxic, No Acute Distress, Chronically Ill - Head Exam Head Exam: ATRAUMATIC, NORMAL INSPECTION, NORMOCEPHALIC - Eye Exam Eye Exam: EOMI, Scleral icterus - ENT Exam ENT Exam: Mucous Membranes Moist, Normal Exam - Respiratory Exam Respiratory Exam: Clear to Ausculation Bilateral, NORMAL BREATHING PATTERN. absent: Wheezes - Cardiovascular Exam Cardiovascular Exam: REGULAR RHYTHM, +S1, +S2 - GI/Abdominal Exam GI & Abdominal Exam: Soft, Normal Bowel Sounds. absent: Tenderness - Neurological Exam Neurological Exam: Alert, Awake, Oriented x3 - Psychiatric Exam Psychiatric exam: Normal Affect, Normal Mood - Skin Skin Exam: Dry, Intact. absent: Normal Color Additional comments: Jaundice present. Assessment and Plan - Assessment and Plan (Free Text) Assessment: 77yo WM with hx of sytolic CHF, AFIB, recent GI bleed, and reported pancreatic mass presenting with obstructive jaundice, HoTN, septic shock, worsening MACIE and now on HD concerning for acute cholangitis and malignancy. #Painless Obstructive jaundice - Concern for cholangiocarcinoma or pancreatic cancer #acute cholangitis - Bile with GNR, Stenotrophomonas Maltophilia #Recent GI bleed #Hepatosteatosis #Cholelithiasis #Septic shock #Anion Gap Metabolic Acidosis #Elevated INR #Systolic CHF - 2014 cath without significant CAD #Chronic Afib #MACIE on HD Plan: -Continue supportive care -MRCP reviewed and compared to CT abd/pelv report. -S/P PTC and drain 11/11/17 -PTC with biliary drain revealed: "Cholangiogram showed common hepatic mass extending into right hepatic duct". I discussed result with IR and concerned for cholangiocarcinoma. -Defer remaining diet to ICU team -Continue to monitor microbio. + Stenotrophomonas Maltophilia. No in-lab susceptibilities yet. Currently on Merrem with clinical improvement. Defer to ID for further Abx management. -Agree with IV ppi for recent GI bleed and high risk for stress ulcer -PENDING labs: Anti-mitochondrial, anti-smooth muscle. -CA19-9, CEA significantly elevated, concerning for malignancy. -Patient too unstable for ERCP. -We have contacted [facility] for transfer as he may need specialized procedures. I discussed with hepatology team and agree on transfer however the fact that he is still on some pressors is the major limiting factor. -Okay to start diet as previous tolerating and advance. -Further management pending clinical progress. We will continue to monitor patient course.
[2017-11-14] MEDS: Meropenem 500 MG in Sodium Chloride 0.9% 100 ML IVPB SCH (09:19)
[2017-11-14 09:38] LABS: LYMPH # 0.4 K/uL (1.0-4.3); MONO # 0.9 K/uL (0.0-0.8); NEUT # 8.8 K/uL (1.8-7.0)
[2017-11-14 09:42] LABS: ANISOCYTOSIS SLIGHT; BANDS 5 % (0-2); LYMPHOCYTE 4 % (20-40); MONOCYTE 9 % (0-10); NEUTROPHIL 82 % (50-75); PLATELET ESTIMATE SLIGHTLY DECREASED (NORMAL); TARGET CELLS MODERATE; TOTAL CELLS COUNTED 100
[2017-11-14] MEDS: Multivitamin Vitamin B Complex (Nephro-Vite) Tab PO SCH (12:06)
--- NOTE | 2017-11-14 15:27 | CP.PCM.PN ---
Subjective - Date & Time of Evaluation Date of Evaluation: 11/14/17 Time of Evaluation: 15:26 - Subjective Subjective: Nephrology Consultation Note Assessment: critical oligoanuric MACIE likely due to ATN due to shock with ? sepsis ? bile cast nephropathy. other possible causes may include hepato-renal, recent IV contrast exposure: started HD 11/11/17 HAGMA obstructive jaundice ? possible cause as pancreatic mass/cholangicarcinoma HTN, CHF, A fib, morbd obesity moderate TR left 2 cm adrenal adenoma hyperphosphatemia Anemia s/p cholecystotomy tube Plan no acute need for dialysis today. UOP better. will re-eval for dialysis need tomorrow. continue to monitor for spontaneous renal recovery maintain hemodynamics stable. avoid hypotension monitor I/O daily weights and renal function with BMP added phoslo, continue same GI, ID following plan for ERCP once stable. pt is being planned for transfer to tertiary care center work up for adrenal adenoma later as outpt once stable Dose meds/antibiotics for reduced GFR <10. Avoid fleets enema/magnesium based laxatives. Avoid nephrotoxins/NSAIDs/ iodinated contrast (unless needed emergently) Glycemic control, Further work up for as per primary team. Thanks for allowing me to participate in care of your patient. will follow with you. Please call if any Qs. had d/w family and team Dr Jairo Carolina Office: [phone] CC: none now reason for consult: MACIE HPI: Pt is a 77 y/o M with hx of HTN, CHF, A fib, morbd obesity recently diagnosed with jaundice and undergoing work up for it, so far suggestive of pancreatic mass, admitted to [facility] with MACIE, decreased urine output and rise in bili, he was found to have hypotension prior to ERCP hence was transferred to [place]. Pt had dialysis catheter placed and transferred to [facility] for dialysis initiation renal consult for MACIE management. pt feels ill and tired. has decresaed appetite. no aware about kidney disease in past says not making much urine no OTC/nsaids/herba meds CT with contrast done 10/30 evening. cr 10/31 AM 1.0 low BP noted, pt requiring pressors ROS: he denies SOB/chest pain/nausea/vomitting. rest all other neg except as mentioned in HPI siu removed. Physical Examination: General Appearance: Comfortable, co-operative. no acute distress Vitals reviewed and noted as below Head; Atraumatic, normocephalic ENT: no ulcers no thrush. Tongue is midline/moist. Oropharynx: no rash or ulcers. EYES: Pupils are equal, round and reactive to light accommodation. Eye muscles and extraocular movement intact. Sclera is icteric. Neck; supple no lymphadenopathy, no thyromegaly or bruit Lungs: normal respiratory rate/effort. Breath sounds appears clear b/l anteriorly Heart: Normal rate. s1s2 normal. No rub or gallop. Extremities: 1+ edema. No varicose veins Neurological: Patient is alert, awake, oriented x 3 follows commands, no focal deifict. NO ASTERIXIS Skin: dry and warm. Normal turgor. No rash. Palpitation: Normal elasticity for age. grossly yellow Abdomen: Abdomen is soft non tender no apparent organomegaly Psych: normal insight. has normal affect and mood MSK: no specific joint tenderness or swelling. Digits and nails normal, no deformity : kidney not palpable. bladder not distended . access: Rt MARK clemens Labs/imaging/EKG reviewed. Past medical history, past surgical history, social history, allergy reviewed and noted as below Family hx; no hx of CKD. rest non contributory work up: left adrenal 2 cm adenoma moderate TR and mildly reduced LVEF UA 100 prot and GNR Bilirubin 36 initially now down trending Objective - Vital Signs/Intake and Output Vital Signs (last 24 hours): Temp Pulse Resp BP Pulse Ox 98 F 78 13 79/57 L 96 11/14/17 04:00 11/14/17 07:08 11/14/17 07:08 11/14/17 07:08 11/14/17 07:08 Intake and Output: 11/14/17 11/14/17 06:59 18:59 Intake Total 140.9 2.4 Output Total 780 Balance -639.1 2.4 - Medications Medications: Current Medications Calcium Acetate (Phoslo) 1,334 mg PO TIDCC [facility] Last Admin: 11/14/17 12:05 Dose: 1,334 mg Hydrocortisone Sodium Succinate (Solu-Cortef) 50 mg IV Q8 [facility] Last Admin: 11/14/17 14:04 Dose: 50 mg Norepinephrine Bitartrate 8 mg (/ Dextrose) 258 mls @ 7.74 mls/hr IV .Q24H PRN ; Protocol; 4 MCG/MIN PRN Reason: TITRATE PER MD ORDER Last Titration: 11/13/17 00:30 Dose: 0 mcg/min, 0 mls/hr Meropenem 500 mg/ Sodium (Chloride) 100 mls @ 100 mls/hr IVPB QAM [facility] PRN Reason: Protocol Last Admin: 11/14/17 09:19 Dose: 100 mls/hr Vasopressin 40 units/ Dextrose 40 mls @ 2.4 mls/hr IV .[id number] [facility]; 0.04 UNITS/ MIN PRN Reason: Protocol Last Titration: 11/14/17 07:00 Dose: 0.03 units/min, 1.8 mls/hr Insulin Aspart (Novolog) 0 unit SC Q6H [facility] PRN Reason: Protocol Last Admin: 11/14/17 12:52 Dose: Not Given Ondansetron HCl (Zofran Inj) 4 mg IVP Q6 PRN PRN Reason: Nausea/Vomiting Last Admin: 11/12/17 14:52 Dose: 4 mg Pantoprazole Sodium (Protonix Inj) 40 mg IVP DAILY [facility] Last Admin: 11/14/17 09:18 Dose: 40 mg Vitamin B Complex/Vit C/Folic Acid (Nephro-Ken) 1 tab PO 0800 [facility] Last Admin: 11/14/17 12:06 Dose: 1 tab - Labs Labs: 11/14/17 06:11 11/14/17 06:11 PT 13.2 SECONDS (9.7-12.2) H 11/14/17 06:11 INR 1.2 11/14/17 06:11 APTT 28 SECONDS (21-34) 11/14/17 06:11
--- NOTE | 2017-11-14 15:29 | CP.PCM.PN ---
Subjective - Date & Time of Evaluation Date of Evaluation: 11/14/17 Time of Evaluation: 03:00 - Subjective Subjective: dictated Objective - Vital Signs/Intake and Output Vital Signs (last 24 hours): Temp Pulse Resp BP Pulse Ox 98 F 78 13 79/57 L 96 11/14/17 04:00 11/14/17 07:08 11/14/17 07:08 11/14/17 07:08 11/14/17 07:08 Intake and Output: 11/14/17 11/14/17 06:59 18:59 Intake Total 140.9 2.4 Output Total 780 Balance -639.1 2.4 - Medications Medications: Current Medications Calcium Acetate (Phoslo) 1,334 mg PO TIDCC [facility] Last Admin: 11/14/17 12:05 Dose: 1,334 mg Hydrocortisone Sodium Succinate (Solu-Cortef) 50 mg IV Q8 [facility] Last Admin: 11/14/17 14:04 Dose: 50 mg Norepinephrine Bitartrate 8 mg (/ Dextrose) 258 mls @ 7.74 mls/hr IV .Q24H PRN ; Protocol; 4 MCG/MIN PRN Reason: TITRATE PER MD ORDER Last Titration: 11/13/17 00:30 Dose: 0 mcg/min, 0 mls/hr Meropenem 500 mg/ Sodium (Chloride) 100 mls @ 100 mls/hr IVPB QAM [facility] PRN Reason: Protocol Last Admin: 11/14/17 09:19 Dose: 100 mls/hr Vasopressin 40 units/ Dextrose 40 mls @ 2.4 mls/hr IV .[id number] JAQUELINE; 0.04 UNITS/ MIN PRN Reason: Protocol Last Titration: 11/14/17 07:00 Dose: 0.03 units/min, 1.8 mls/hr Insulin Aspart (Novolog) 0 unit SC Q6H JAQUELINE PRN Reason: Protocol Last Admin: 11/14/17 12:52 Dose: Not Given Ondansetron HCl (Zofran Inj) 4 mg IVP Q6 PRN PRN Reason: Nausea/Vomiting Last Admin: 11/12/17 14:52 Dose: 4 mg Pantoprazole Sodium (Protonix Inj) 40 mg IVP DAILY [facility] Last Admin: 11/14/17 09:18 Dose: 40 mg Vitamin B Complex/Vit C/Folic Acid (Nephro-Ken) 1 tab PO 0800 JAQUELINE Last Admin: 11/14/17 12:06 Dose: 1 tab - Labs Labs: 11/14/17 06:11 11/14/17 06:11 PT 13.2 SECONDS (9.7-12.2) H 11/14/17 06:11 INR 1.2 11/14/17 06:11 APTT 28 SECONDS (21-34) 11/14/17 06:11
[2017-11-14] MEDS: Ciprofloxacin 400mg/200ml D5W 400 MG/200 ML BAG IVPB SCH (16:31)
--- NOTE | 2017-11-14 17:31 | CP.CCUPN ---
<Mendy Das - Last Filed: 11/14/17 17:28> CCU Subjective - Physician Review Subjective (Free Text): 11/11/17 12:45 Pt seen and examined at bedside this am. No acute events overnight. Pt denies having any CP, SOB, abd pain, N/V, F/C. C/O diarrhea. Patient continues to be hypotensive currently on Levophed and vasopressin. Patient producing only minimal urine dark in color. Input 1085, output 145. Positive balance 940. 11/13/17 11:43 Pt seen and examined at bedside. No acute events overnight. Levophed d/christina. Currently on Vassopressin and Solucortef with stable BP. Pt denies having any CP, SOB, abd pain, N/V/D/C, F/C. cholecystostomy drains in place drained 520 overnight of billious fluid. Macias in place 11/14/17 17:28 Pt seen and examined at bedside. No acute events overnight. Pt resting comfortably. Denies having any CP, SOB, abd pain, N/V/D/C, F/C. Right biliary drain and cholecystostomy tube in place draining serrosangunous bilious fluid. CCU Objective - Vital Signs / Intake & Output Vital Signs (Last 4 hours): Vital Signs Pulse Resp BP Pulse Ox 11/14/17 17:00 87 13 96 11/14/17 16:58 78 14 88/67 L 96 11/14/17 16:00 81 13 97 11/14/17 15:58 78 14 87/59 L 97 11/14/17 15:00 91 H 22 77 L 11/14/17 14:58 82 30 H 107/71 99 11/14/17 14:00 83 14 97 11/14/17 13:58 77 17 109/67 96 Intake and Output (Last 8hrs): Intake & Output 11/14/17 11/14/17 11/14/17 06:59 14:59 22:59 Intake Total 5.3 207.8 Output Total 530 Balance -524.7 207.8 Weight 294 lb 1.546 oz Intake: IV 4.1 0.6 Intake, IV Amount 1.2 207.2 Willis port of HD cath 0.9 IV port of HD cath 0.3 7.2 Right Forearm 200 Output: Drainage 330 R lower cholecystostomy 30 Right upper biliary rain 300 Urine 200 Urine, Voided 200 Other: # Bowel Movements 1 - Physical Exam Head: Positive for: Atraumatic, Normocephalic Extroacular Muscles: Positive for: EOMI Conjunctiva: Positive for: Icteric Mouth: Positive for: Moist Mucous Membranes Respiratory/Chest: Positive for: Clear to Auscultation. Negative for: Respiratory Distress, Accessory Muscle Use, Wheezes, Rales, Rhonchi Cardiovascular: Positive for: Regular Rate and Rhythm, Normal S1, S2 Abdomen: Positive for: Normal Bowel Sounds. Negative for: Tenderness, Distention, Peritoneal Signs, Guarding, Mass/Organomegaly Lower Extremity: Positive for: Edema (2+ B/L ). Negative for: CALF TENDERNESS Neurological: Positive for: GCS=15, Speech Normal, Memory Normal Skin: Positive for: Other (Jaundinced) Psychiatric: Positive for: Alert, Oriented x 3, Normal Insight, Normal Concentration - Medications Active Medications: Active Medications Generic Name Dose Route Start Last Admin Trade Name Freq PRN Reason Stop Dose Admin Calcium Acetate 1,334 mg 11/11/17 12:00 11/14/17 16:31 Phoslo PO 1,334 mg TIDCC JAQUELINE Administration Hydrocortisone Sodium Succinate 50 mg 11/11/17 11:45 11/14/17 14:04 Solu-Cortef IV 50 mg Q8 JAQUELINE Administration Norepinephrine Bitartrate 8 mg 258 mls @ 7.74 mls/hr 11/10/17 16:04 11/13/17 00:30 / Dextrose IV 0 mcg/min .Q24H PRN 0 mls/hr TITRATE PER MD ORDER Titration Protocol 4 MCG/MIN Meropenem 500 mg/ Sodium 100 mls @ 100 mls/hr 11/11/17 10:00 11/14/17 09:19 Chloride IVPB 100 mls/hr QAM JAQUELINE Administration Protocol Vasopressin 40 units/ Dextrose 40 mls @ 2.4 mls/hr 11/10/17 21:30 11/14/17 16 :51 IV Not Given .[id number] JAQUELINE Protocol 0.04 UNITS/MIN Ciprofloxacin 400 mg in 200 mls @ 133 mls/hr 11/14/17 15:30 11/14/17 16:31 Cipro 400mg/200ml Dsw IVPB 133 mls/hr Q24H JAQUELINE Administration Protocol Insulin Aspart 0 unit 07/09/18 00:00 11/14/17 12:52 Novolog SC Not Given Q6H [facility] Protocol Ondansetron HCl 4 mg 11/11/17 16:49 11/12/17 14:52 Zofran Inj IVP 4 mg Q6 PRN Administration Nausea/Vomiting Pantoprazole Sodium 40 mg 11/11/17 10:00 11/14/17 09:18 Protonix Inj IVP 40 mg DAILY JAQUELINE Administration Vitamin B Complex/Vit C/Folic Acid 1 tab 11/12/17 08:00 11/14/17 12:06 Nephro-Ken PO 1 tab 0800 [facility] Administration - Patient Studies Lab Studies: Microbiology Studies 11/11/17 17:37 Gram Stain - Final Bile Body Fluid Culture - Preliminary NO GROWTH AFTER 3 DAYS 11/11/17 17:36 Gram Stain - Final Bile Body Fluid Culture - Final Stenotrophomonas Maltophilia 11/10/17 16:45 Blood Culture - Preliminary Blood-During Dialysis NO GROWTH AFTER 3 DAYS 11/10/17 17:15 Blood Culture - Preliminary Blood-During Dialysis NO GROWTH AFTER 3 DAYS Lab Studies 11/14/17 11/14/17 11/14/17 Range/Units 11:55 06:11 06:11 WBC (4.8-10.8) K/uL RBC (4.40-5.90) Mil/uL Hgb (12.0-18.0) g/dL Hct (35.0-51.0) % MCV (80.0-94.0) fL MCH (27.0-31.0) pg MCHC (33.0-37.0) g/dL RDW (11.5-14.5) % Plt Count (130-400) K/uL MPV (7.2-11.7) fL Neut % (Auto) (50.0-75.0) % Lymph % (Auto) (20.0-40.0) % Rawlins % (Auto) (0.0-10.0) % Eos % (Auto) (0.0-4.0) % Baso % (Auto) (0.0-2.0) % Neut # (Auto) (1.8-7.0) K/uL Lymph # (Auto) (1.0-4.3) K/uL Rawlins # (Auto) (0.0-0.8) K/uL Eos # (Auto) (0.0-0.7) K/uL Baso # (Auto) (0.0-0.2) K/uL Neutrophils % (Manual) (50-75) % Band Neutrophils % (0-2) % Lymphocytes % (Manual) (20-40) % Monocytes % (Manual) (0-10) % Platelet Estimate (NORMAL) Anisocytosis (manual) Target Cells PT (9.7-12.2) SECONDS INR APTT (21-34) SECONDS Sodium 142 (132-148) mmol/L Potassium 3.4 L (3.6-5.2) mmol/L Chloride 105 (98-107) mmol/L Carbon Dioxide 22 (22-30) mmol/L Anion Gap 18 (10-20) BUN 83 H (9-20) mg/dL Creatinine 5.2 H (0.8-1.5) mg/dL Est GFR ( Amer) 13 Est GFR (Non-Af Amer) 11 POC Glucose (mg/dL) 111 H (65-110) mg/dL Random Glucose 96 (75-110) mg/dL Hemoglobin A1c 5.6 (4.2-6.5) % Calcium 6.3 L (8.6-10.4) mg/dl Magnesium 2.0 (1.6-2.3) mg/dL Total Bilirubin 26.8 H (0.2-1.3) mg/dL AST 42 (17-59) U/L ALT 54 (21-72) U/L Alkaline Phosphatase 226 H (38-126) U/L Total Protein 5.4 L (6.3-8.3) g/dL Albumin 2.4 L (3.5-5.0) g/dL Globulin 2.9 (2.2-3.9) gm/dL Albumin/Globulin Ratio 0.8 L (1.0-2.1) Anti-Mitochondrial Ab (Negative) 11/14/17 11/14/17 11/14/17 Range/Units 06:11 06:11 05:22 WBC 10.1 (4.8-10.8) K/uL RBC 2.95 L (4.40-5.90) Mil/uL Hgb 10.0 L (12.0-18.0) g/dL Hct 27.2 L (35.0-51.0) % MCV 92.4 (80.0-94.0) fL MCH 33.9 H (27.0-31.0) pg MCHC 36.7 (33.0-37.0) g/dL RDW 16.3 H (11.5-14.5) % Plt Count 123 L (130-400) K/uL MPV 9.7 (7.2-11.7) fL Neut % (Auto) 86.0 H (50.0-75.0) % Lymph % (Auto) 4.0 L (20.0-40.0) % Rawlins % (Auto) 10.0 (0.0-10.0) % Eos % (Auto) 0.0 (0.0-4.0) % Baso % (Auto) 0.0 (0.0-2.0) % Neut # (Auto) 8.8 H (1.8-7.0) K/uL Lymph # (Auto) 0.4 L (1.0-4.3) K/uL Rawlins # (Auto) 0.9 H (0.0-0.8) K/uL Eos # (Auto) 0.0 (0.0-0.7) K/uL Baso # (Auto) 0.0 (0.0-0.2) K/uL Neutrophils % (Manual) 82 H (50-75) % Band Neutrophils % 5 H (0-2) % Lymphocytes % (Manual) 4 L (20-40) % Monocytes % (Manual) 9 (0-10) % Platelet Estimate Slightly decreased L (NORMAL) Anisocytosis (manual) Slight Target Cells Moderate PT 13.2 H (9.7-12.2) SECONDS INR 1.2 APTT 28 (21-34) SECONDS Sodium (132-148) mmol/L Potassium (3.6-5.2) mmol/L Chloride (98-107) mmol/L Carbon Dioxide (22-30) mmol/L Anion Gap (10-20) BUN (9-20) mg/dL Creatinine (0.8-1.5) mg/dL Est GFR ( Amer) Est GFR (Non-Af Amer) POC Glucose (mg/dL) 100 (65-110) mg/dL Random Glucose (75-110) mg/dL Hemoglobin A1c (4.2-6.5) % Calcium (8.6-10.4) mg/dl Magnesium (1.6-2.3) mg/dL Total Bilirubin (0.2-1.3) mg/dL AST (17-59) U/L ALT (21-72) U/L Alkaline Phosphatase (38-126) U/L Total Protein (6.3-8.3) g/dL Albumin (3.5-5.0) g/dL Globulin (2.2-3.9) gm/dL Albumin/Globulin Ratio (1.0-2.1) Anti-Mitochondrial Ab (Negative) 11/13/17 11/13/17 11/13/17 Range/Units 23:39 23:37 17:45 WBC (4.8-10.8) K/uL RBC (4.40-5.90) Mil/uL Hgb (12.0-18.0) g/dL Hct (35.0-51.0) % MCV (80.0-94.0) fL MCH (27.0-31.0) pg MCHC (33.0-37.0) g/dL RDW (11.5-14.5) % Plt Count (130-400) K/uL MPV (7.2-11.7) fL Neut % (Auto) (50.0-75.0) % Lymph % (Auto) (20.0-40.0) % Rawlins % (Auto) (0.0-10.0) % Eos % (Auto) (0.0-4.0) % Baso % (Auto) (0.0-2.0) % Neut # (Auto) (1.8-7.0) K/uL Lymph # (Auto) (1.0-4.3) K/uL Rawlins # (Auto) (0.0-0.8) K/uL Eos # (Auto) (0.0-0.7) K/uL Baso # (Auto) (0.0-0.2) K/uL Neutrophils % (Manual) (50-75) % Band Neutrophils % (0-2) % Lymphocytes % (Manual) (20-40) % Monocytes % (Manual) (0-10) % Platelet Estimate (NORMAL) Anisocytosis (manual) Target Cells PT (9.7-12.2) SECONDS INR APTT (21-34) SECONDS Sodium (132-148) mmol/L Potassium (3.6-5.2) mmol/L Chloride (98-107) mmol/L Carbon Dioxide (22-30) mmol/L Anion Gap (10-20) BUN (9-20) mg/dL Creatinine (0.8-1.5) mg/dL Est GFR ( Amer) Est GFR (Non-Af Amer) POC Glucose (mg/dL) 124 H 31 L* 148 H (65-110) mg/dL Random Glucose (75-110) mg/dL Hemoglobin A1c (4.2-6.5) % Calcium (8.6-10.4) mg/dl Magnesium (1.6-2.3) mg/dL Total Bilirubin (0.2-1.3) mg/dL AST (17-59) U/L ALT (21-72) U/L Alkaline Phosphatase (38-126) U/L Total Protein (6.3-8.3) g/dL Albumin (3.5-5.0) g/dL Globulin (2.2-3.9) gm/dL Albumin/Globulin Ratio (1.0-2.1) Anti-Mitochondrial Ab (Negative) 11/12/17 Range/Units 15:50 WBC (4.8-10.8) K/uL RBC (4.40-5.90) Mil/uL Hgb (12.0-18.0) g/dL Hct (35.0-51.0) % MCV (80.0-94.0) fL MCH (27.0-31.0) pg MCHC (33.0-37.0) g/dL RDW (11.5-14.5) % Plt Count (130-400) K/uL MPV (7.2-11.7) fL Neut % (Auto) (50.0-75.0) % Lymph % (Auto) (20.0-40.0) % Rawlins % (Auto) (0.0-10.0) % Eos % (Auto) (0.0-4.0) % Baso % (Auto) (0.0-2.0) % Neut # (Auto) (1.8-7.0) K/uL Lymph # (Auto) (1.0-4.3) K/uL Rawlins # (Auto) (0.0-0.8) K/uL Eos # (Auto) (0.0-0.7) K/uL Baso # (Auto) (0.0-0.2) K/uL Neutrophils % (Manual) (50-75) % Band Neutrophils % (0-2) % Lymphocytes % (Manual) (20-40) % Monocytes % (Manual) (0-10) % Platelet Estimate (NORMAL) Anisocytosis (manual) Target Cells PT (9.7-12.2) SECONDS INR APTT (21-34) SECONDS Sodium (132-148) mmol/L Potassium (3.6-5.2) mmol/L Chloride (98-107) mmol/L Carbon Dioxide (22-30) mmol/L Anion Gap (10-20) BUN (9-20) mg/dL Creatinine (0.8-1.5) mg/dL Est GFR ( Amer) Est GFR (Non-Af Amer) POC Glucose (mg/dL) (65-110) mg/dL Random Glucose (75-110) mg/dL Hemoglobin A1c (4.2-6.5) % Calcium (8.6-10.4) mg/dl Magnesium (1.6-2.3) mg/dL Total Bilirubin (0.2-1.3) mg/dL AST (17-59) U/L ALT (21-72) U/L Alkaline Phosphatase (38-126) U/L Total Protein (6.3-8.3) g/dL Albumin (3.5-5.0) g/dL Globulin (2.2-3.9) gm/dL Albumin/Globulin Ratio (1.0-2.1) Anti-Mitochondrial Ab Negative (Negative) Laboratory Results - last 24 hr 11/12/17 11/13/17 11/13/17 15:50 17:45 23:37 WBC RBC Hgb Hct MCV MCH MCHC RDW Plt Count MPV Neut % (Auto) Lymph % (Auto) Rawlins % (Auto) Eos % (Auto) Baso % (Auto) Neut # (Auto) Lymph # (Auto) Rawlins # (Auto) Eos # (Auto) Baso # (Auto) Neutrophils % (Manual) Band Neutrophils % Lymphocytes % (Manual) Monocytes % (Manual) Platelet Estimate Anisocytosis (manual) Target Cells PT INR APTT Sodium Potassium Chloride Carbon Dioxide Anion Gap BUN Creatinine Est GFR ( Amer) Est GFR (Non-Af Amer) POC Glucose (mg/dL) 148 H 31 L* Random Glucose Hemoglobin A1c Calcium Magnesium Total Bilirubin AST ALT Alkaline Phosphatase Total Protein Albumin Globulin Albumin/Globulin Ratio Anti-Mitochondrial Ab Negative 11/13/17 11/14/17 11/14/17 23:39 05:22 06:11 WBC 10.1 RBC 2.95 L Hgb 10.0 L Hct 27.2 L MCV 92.4 MCH 33.9 H MCHC 36.7 RDW 16.3 H Plt Count 123 L MPV 9.7 Neut % (Auto) 86.0 H Lymph % (Auto) 4.0 L Rawlins % (Auto) 10.0 Eos % (Auto) 0.0 Baso % (Auto) 0.0 Neut # (Auto) 8.8 H Lymph # (Auto) 0.4 L Rawlins # (Auto) 0.9 H Eos # (Auto) 0.0 Baso # (Auto) 0.0 Neutrophils % (Manual) 82 H Band Neutrophils % 5 H Lymphocytes % (Manual) 4 L Monocytes % (Manual) 9 Platelet Estimate Slightly decreased L Anisocytosis (manual) Slight Target Cells Moderate PT INR APTT Sodium Potassium Chloride Carbon Dioxide Anion Gap BUN Creatinine Est GFR ( Amer) Est GFR (Non-Af Amer) POC Glucose (mg/dL) 124 H 100 Random Glucose Hemoglobin A1c Calcium Magnesium Total Bilirubin AST ALT Alkaline Phosphatase Total Protein Albumin Globulin Albumin/Globulin Ratio Anti-Mitochondrial Ab 11/14/17 11/14/17 11/14/17 06:11 06:11 06:11 WBC RBC Hgb Hct MCV MCH MCHC RDW Plt Count MPV Neut % (Auto) Lymph % (Auto) Rawlins % (Auto) Eos % (Auto) Baso % (Auto) Neut # (Auto) Lymph # (Auto) Rawlins # (Auto) Eos # (Auto) Baso # (Auto) Neutrophils % (Manual) Band Neutrophils % Lymphocytes % (Manual) Monocytes % (Manual) Platelet Estimate Anisocytosis (manual) Target Cells PT 13.2 H INR 1.2 APTT 28 Sodium 142 Potassium 3.4 L Chloride 105 Carbon Dioxide 22 Anion Gap 18 BUN 83 H Creatinine 5.2 H Est GFR ( Amer) 13 Est GFR (Non-Af Amer) 11 POC Glucose (mg/dL) Random Glucose 96 Hemoglobin A1c 5.6 Calcium 6.3 L Magnesium 2.0 Total Bilirubin 26.8 H AST 42 ALT 54 Alkaline Phosphatase 226 H Total Protein 5.4 L Albumin 2.4 L Globulin 2.9 Albumin/Globulin Ratio 0.8 L Anti-Mitochondrial Ab 11/14/17 11:55 WBC RBC Hgb Hct MCV MCH MCHC RDW Plt Count MPV Neut % (Auto) Lymph % (Auto) Rawlins % (Auto) Eos % (Auto) Baso % (Auto) Neut # (Auto) Lymph # (Auto) Rawlins # (Auto) Eos # (Auto) Baso # (Auto) Neutrophils % (Manual) Band Neutrophils % Lymphocytes % (Manual) Monocytes % (Manual) Platelet Estimate Anisocytosis (manual) Target Cells PT INR APTT Sodium Potassium Chloride Carbon Dioxide Anion Gap BUN Creatinine Est GFR ( Amer) Est GFR (Non-Af Amer) POC Glucose (mg/dL) 111 H Random Glucose Hemoglobin A1c Calcium Magnesium Total Bilirubin AST ALT Alkaline Phosphatase Total Protein Albumin Globulin Albumin/Globulin Ratio Anti-Mitochondrial Ab Fingerstick Blood Sugar Results: 111 Review of Systems - EENT Eyes: absent: Blurred Vision, Change in Vision Nose/Mouth/Throat: absent: Nasal Congestion, Nasal Discharge - Cardiovascular Cardiovascular: absent: Acrocyanosis, Chest Pain, Chest Pain at Rest, Dyspnea, Dyspnea on Exertion, Edema, UNREMARKABLE - Respiratory Respiratory: absent: Cough, Dyspnea, Wheezing, Chest Congestion - Gastrointestinal Gastrointestinal: absent: Abdominal Pain, Bloating, Constipation, Diarrhea, Nausea, Vomiting - Genitourinary Genitourinary: absent: Dysuria, Urinary Frequency, Urinary Urgency - Musculoskeletal Musculoskeletal: absent: Back Pain, Numbness, Tingling - Integumentary Integumentary: Jaundice. absent: Lesions - Neurological Neurological: absent: Headaches, Tingling, Weakness - Psychiatric Psychiatric: absent: Anxiety, Depression - Endocrine Endocrine: absent: Fatigue, Flushing, Palpitations Critical Care Progress Note - Prophylaxis GI Prophylaxis GI: PPI - Prophylaxis DVT Prophylaxis DVT: SCDs - Nutrition Nutrition: Nutrition Category Date Time Status Liquid Diet [DIET] Diets 11/14/17 Dinner Active Assessment/Plan - Assessment and Plan (Free Text) Assessment: Cardiology: - PMHx of A fib and CHF with EF of 40% on recent echo with global hypokenesis A. A fib - Currently rate controlled A. CHF with EF of 40 % - [place] admission [place] 87649 - Pt remains hypotensive on vassopressin and solucortef Pulmonology - SOB likely 2/2 CHF exacerbation - Currently on NC GI A. Painless jaundice - T bili improvin.8 - MRCP done at [place] on 10/31 showed intra and extrahepatic biliary dilation with common bile duct measuring 17 mm in the seth hepatis - Right cholecystostomy and biliary drains placed 11/11 - GI, Dr. Neville consulted. Recommend pt follow up with [facility] for specialist care - Surgery, Dr. Vaughn is consulted - Pt is hypotensive and currently on pressors. There is concern for ascending cholangitis. Pt afebrile. A&Ox 3. - Continue meropenem - Will start pt on liquid diet. will make pt NPO past midnight for possible ERCP tomorrow - Positive stool occult - Negative hepatitis panel - Macias d/christina -I's 540 O's 1305 Renal A. MACIE on CKD stage IV - BUN/Cr:83/5.2 - HD MWF - RIJ trialysis cath inserted on 11/10/17 - Nephro, Dr. Carolina is consulted - Continue phoslo and nephrovite Heme/onc -CEA 3.4, CA 19-9 798 - Heme/onc, Dr. Jin is consulted. - GI, Dr. Neville consulted and recommend following up with specialist at [facility] A. Hyperglycemia - No HgbA1c on record. Hyperglycemia likely 2/2 steroids - HgbA1c 5.6 - ISS - Accucheck ID A. Septic shock - WBC count improving - Hypotensive on vassopresisn and solucortef - Repeat blood culture grew Stenotrophomonas Maltophilia. Sensitivity pending - Currently on Merrem Prophylaxis - Protonix - SCDs - PT/OT Carl Jacobo - Date & Time Date: 11/14/17 Time: 17:33 <Tyson Jacobo - Last Filed: 11/14/17 18:38> CCU Objective - Vital Signs / Intake & Output Vital Signs (Last 4 hours): Vital Signs Pulse Resp BP Pulse Ox 11/14/17 17:00 87 13 96 11/14/17 16:58 78 14 88/67 L 96 11/14/17 16:00 81 13 97 11/14/17 15:58 78 14 87/59 L 97 11/14/17 15:00 91 H 22 77 L 11/14/17 14:58 82 30 H 107/71 99 Intake and Output (Last 8hrs): Intake & Output 11/14/17 11/14/17 11/14/17 06:59 14:59 22:59 Intake Total 5.3 207.8 Output Total 530 Balance -524.7 207.8 Weight 294 lb 1.546 oz Intake: IV 4.1 0.6 Intake, IV Amount 1.2 207.2 Willis port of HD cath 0.9 IV port of HD cath 0.3 7.2 Right Forearm 200 Output: Drainage 330 R lower cholecystostomy 30 Right upper biliary rain 300 Urine 200 Urine, Voided 200 Other: # Bowel Movements 1 - Medications Active Medications: Active Medications Generic Name Dose Route Start Last Admin Trade Name Freq PRN Reason Stop Dose Admin Calcium Acetate 1,334 mg 11/11/17 12:00 11/14/17 16:31 Phoslo PO 1,334 mg TIDCC JAQUELINE Administration Heparin Sodium (Porcine) 5,000 units 11/14/17 17:45 11/14/17 17:55 Heparin SC 5,000 units Q8 JAQUELINE Administration Hydrocortisone Sodium Succinate 50 mg 11/11/17 11:45 11/14/17 14:04 Solu-Cortef IV 50 mg Q8 JAQUELINE Administration Norepinephrine Bitartrate 8 mg 258 mls @ 7.74 mls/hr 11/10/17 16:04 11/13/17 00:30 / Dextrose IV 0 mcg/min .Q24H PRN 0 mls/hr TITRATE PER MD ORDER Titration Protocol 4 MCG/MIN Meropenem 500 mg/ Sodium 100 mls @ 100 mls/hr 11/11/17 10:00 11/14/17 09:19 Chloride IVPB 100 mls/hr QAM JAQUELINE Administration Protocol Vasopressin 40 units/ Dextrose 40 mls @ 2.4 mls/hr 11/10/17 21:30 11/14/17 16 :51 IV Not Given .[id number] JAQUELINE Protocol 0.04 UNITS/MIN Ciprofloxacin 400 mg in 200 mls @ 133 mls/hr 11/14/17 15:30 11/14/17 16:31 Cipro 400mg/200ml Dsw IVPB 133 mls/hr Q24H JAQUELINE Administration Protocol Insulin Aspart 0 unit 11/11/17 00:00 11/14/17 17:54 Novolog SC 1 u Q6H JAQUELINE Administration Protocol Ondansetron HCl 4 mg 11/11/17 16:49 11/12/17 14:52 Zofran Inj IVP 4 mg Q6 PRN Administration Nausea/Vomiting Pantoprazole Sodium 40 mg 11/11/17 10:00 11/14/17 09:18 Protonix Inj IVP 40 mg DAILY JAQUELINE Administration Vitamin B Complex/Vit C/Folic Acid 1 tab 11/12/17 08:00 11/14/17 12:06 Nephro-Ken PO 1 tab 0800 JAQUELINE Administration - Patient Studies Lab Studies: Microbiology Studies 11/10/17 16:45 Blood Culture - Preliminary Blood-During Dialysis NO GROWTH AFTER 4 DAYS 11/10/17 17:15 Blood Culture - Preliminary Blood-During Dialysis NO GROWTH AFTER 4 DAYS 11/11/17 17:37 Gram Stain - Final Bile Body Fluid Culture - Preliminary NO GROWTH AFTER 3 DAYS 11/11/17 17:36 Gram Stain - Final Bile Body Fluid Culture - Final Stenotrophomonas Maltophilia Lab Studies 11/14/17 11/14/17 11/14/17 Range/Units 17:46 11:55 06:11 WBC (4.8-10.8) K/uL RBC (4.40-5.90) Mil/uL Hgb (12.0-18.0) g/dL Hct (35.0-51.0) % MCV (80.0-94.0) fL MCH (27.0-31.0) pg MCHC (33.0-37.0) g/dL RDW (11.5-14.5) % Plt Count (130-400) K/uL MPV (7.2-11.7) fL Neut % (Auto) (50.0-75.0) % Lymph % (Auto) (20.0-40.0) % Rawlins % (Auto) (0.0-10.0) % Eos % (Auto) (0.0-4.0) % Baso % (Auto) (0.0-2.0) % Neut # (Auto) (1.8-7.0) K/uL Lymph # (Auto) (1.0-4.3) K/uL Rawlins # (Auto) (0.0-0.8) K/uL Eos # (Auto) (0.0-0.7) K/uL Baso # (Auto) (0.0-0.2) K/uL Neutrophils % (Manual) (50-75) % Band Neutrophils % (0-2) % Lymphocytes % (Manual) (20-40) % Monocytes % (Manual) (0-10) % Platelet Estimate (NORMAL) Anisocytosis (manual) Target Cells PT (9.7-12.2) SECONDS INR APTT (21-34) SECONDS Sodium (132-148) mmol/L Potassium (3.6-5.2) mmol/L Chloride (98-107) mmol/L Carbon Dioxide (22-30) mmol/L Anion Gap (10-20) BUN (9-20) mg/dL Creatinine (0.8-1.5) mg/dL Est GFR ( Amer) Est GFR (Non-Af Amer) POC Glucose (mg/dL) 177 H 111 H (65-110) mg/dL Random Glucose (75-110) mg/dL Hemoglobin A1c 5.6 (4.2-6.5) % Calcium (8.6-10.4) mg/dl Magnesium (1.6-2.3) mg/dL Total Bilirubin (0.2-1.3) mg/dL AST (17-59) U/L ALT (21-72) U/L Alkaline Phosphatase (38-126) U/L Total Protein (6.3-8.3) g/dL Albumin (3.5-5.0) g/dL Globulin (2.2-3.9) gm/dL Albumin/Globulin Ratio (1.0-2.1) Anti-Mitochondrial Ab (Negative) 11/14/17 11/14/17 11/14/17 Range/Units 06:11 06:11 06:11 WBC 10.1 (4.8-10.8) K/uL RBC 2.95 L (4.40-5.90) Mil/uL Hgb 10.0 L (12.0-18.0) g/dL Hct 27.2 L (35.0-51.0) % MCV 92.4 (80.0-94.0) fL MCH 33.9 H (27.0-31.0) pg MCHC 36.7 (33.0-37.0) g/dL RDW 16.3 H (11.5-14.5) % Plt Count 123 L (130-400) K/uL MPV 9.7 (7.2-11.7) fL Neut % (Auto) 86.0 H (50.0-75.0) % Lymph % (Auto) 4.0 L (20.0-40.0) % [place] % (Auto) 10.0 (0.0-10.0) % Eos % (Auto) 0.0 (0.0-4.0) % Baso % (Auto) 0.0 (0.0-2.0) % Neut # (Auto) 8.8 H (1.8-7.0) K/uL Lymph # (Auto) 0.4 L (1.0-4.3) K/uL [place] # (Auto) 0.9 H (0.0-0.8) K/uL Eos # (Auto) 0.0 (0.0-0.7) K/uL Baso # (Auto) 0.0 (0.0-0.2) K/uL Neutrophils % (Manual) 82 H (50-75) % Band Neutrophils % 5 H (0-2) % Lymphocytes % (Manual) 4 L (20-40) % Monocytes % (Manual) 9 (0-10) % Platelet Estimate Slightly decreased L (NORMAL) Anisocytosis (manual) Slight Target Cells Moderate PT 13.2 H (9.7-12.2) SECONDS INR 1.2 APTT 28 (21-34) SECONDS Sodium 142 (132-148) mmol/L Potassium 3.4 L (3.6-5.2) mmol/L Chloride 105 (98-107) mmol/L Carbon Dioxide 22 (22-30) mmol/L Anion Gap 18 (10-20) BUN 83 H (9-20) mg/dL Creatinine 5.2 H (0.8-1.5) mg/dL Est GFR ( Amer) 13 Est GFR (Non-Af Amer) 11 POC Glucose (mg/dL) (65-110) mg/dL Random Glucose 96 (75-110) mg/dL Hemoglobin A1c (4.2-6.5) % Calcium 6.3 L (8.6-10.4) mg/dl Magnesium 2.0 (1.6-2.3) mg/dL Total Bilirubin 26.8 H (0.2-1.3) mg/dL AST 42 (17-59) U/L ALT 54 (21-72) U/L Alkaline Phosphatase 226 H (38-126) U/L Total Protein 5.4 L (6.3-8.3) g/dL Albumin 2.4 L (3.5-5.0) g/dL Globulin 2.9 (2.2-3.9) gm/dL Albumin/Globulin Ratio 0.8 L (1.0-2.1) Anti-Mitochondrial Ab (Negative) 11/14/17 11/13/17 11/13/17 Range/Units 05:22 23:39 23:37 WBC (4.8-10.8) K/uL RBC (4.40-5.90) Mil/uL Hgb (12.0-18.0) g/dL Hct (35.0-51.0) % MCV (80.0-94.0) fL MCH (27.0-31.0) pg MCHC (33.0-37.0) g/dL RDW (11.5-14.5) % Plt Count (130-400) K/uL MPV (7.2-11.7) fL Neut % (Auto) (50.0-75.0) % Lymph % (Auto) (20.0-40.0) % [place] % (Auto) (0.0-10.0) % Eos % (Auto) (0.0-4.0) % Baso % (Auto) (0.0-2.0) % Neut # (Auto) (1.8-7.0) K/uL Lymph # (Auto) (1.0-4.3) K/uL Raw[place]ins # (Auto) (0.0-0.8) K/uL Eos # (Auto) (0.0-0.7) K/uL Baso # (Auto) (0.0-0.2) K/uL Neutrophils % (Manual) (50-75) % Band Neutrophils % (0-2) % Lymphocytes % (Manual) (20-40) % Monocytes % (Manual) (0-10) % Platelet Estimate (NORMAL) Anisocytosis (manual) Target Cells PT (9.7-12.2) SECONDS INR APTT (21-34) SECONDS Sodium (132-148) mmol/L Potassium (3.6-5.2) mmol/L Chloride (98-107) mmol/L Carbon Dioxide (22-30) mmol/L Anion Gap (10-20) BUN (9-20) mg/dL Creatinine (0.8-1.5) mg/dL Est GFR ( Amer) Est GFR (Non-Af Amer) POC Glucose (mg/dL) 100 124 H 31 L* (65-110) mg/dL Random Glucose (75-110) mg/dL Hemoglobin A1c (4.2-6.5) % Calcium (8.6-10.4) mg/dl Magnesium (1.6-2.3) mg/dL Total Bilirubin (0.2-1.3) mg/dL AST (17-59) U/L ALT (21-72) U/L Alkaline Phosphatase (38-126) U/L Total Protein (6.3-8.3) g/dL Albumin (3.5-5.0) g/dL Globulin (2.2-3.9) gm/dL Albumin/Globulin Ratio (1.0-2.1) Anti-Mitochondrial Ab (Negative) 11/13/17 11/12/17 Range/Units 17:45 15:50 WBC (4.8-10.8) K/uL RBC (4.40-5.90) Mil/uL Hgb (12.0-18.0) g/dL Hct (35.0-51.0) % MCV (80.0-94.0) fL MCH (27.0-31.0) pg MCHC (33.0-37.0) g/dL RDW (11.5-14.5) % Plt Count (130-400) K/uL MPV (7.2-11.7) fL Neut % (Auto) (50.0-75.0) % Lymph % (Auto) (20.0-40.0) % [place] % (Auto) (0.0-10.0) % Eos % (Auto) (0.0-4.0) % Baso % (Auto) (0.0-2.0) % Neut # (Auto) (1.8-7.0) K/uL Lymph # (Auto) (1.0-4.3) K/uL [place] # (Auto) (0.0-0.8) K/uL Eos # (Auto) (0.0-0.7) K/uL Baso # (Auto) (0.0-0.2) K/uL Neutrophils % (Manual) (50-75) % Band Neutrophils % (0-2) % Lymphocytes % (Manual) (20-40) % Monocytes % (Manual) (0-10) % Platelet Estimate (NORMAL) Anisocytosis (manual) Target Cells PT (9.7-12.2) SECONDS INR APTT (21-34) SECONDS Sodium (132-148) mmol/L Potassium (3.6-5.2) mmol/L Chloride (98-107) mmol/L Carbon Dioxide (22-30) mmol/L Anion Gap (10-20) BUN (9-20) mg/dL Creatinine (0.8-1.5) mg/dL Est GFR ( Amer) Est GFR (Non-Af Amer) POC Glucose (mg/dL) 148 H (65-110) mg/dL Random Glucose (75-110) mg/dL Hemoglobin A1c (4.2-6.5) % Calcium (8.6-10.4) mg/dl Magnesium (1.6-2.3) mg/dL Total Bilirubin (0.2-1.3) mg/dL AST (17-59) U/L ALT (21-72) U/L Alkaline Phosphatase (38-126) U/L Total Protein (6.3-8.3) g/dL Albumin (3.5-5.0) g/dL Globulin (2.2-3.9) gm/dL Albumin/Globulin Ratio (1.0-2.1) Anti-Mitochondrial Ab Negative (Negative) Laboratory Results - last 24 hr 11/12/17 11/13/17 11/13/17 15:50 17:45 23:37 WBC RBC Hgb Hct MCV MCH MCHC RDW Plt Count MPV Neut % (Auto) Lymph % (Auto) [place] % (Auto) Eos % (Auto) Baso % (Auto) Neut # (Auto) Lymph # (Auto) [place] # (Auto) Eos # (Auto) Baso # (Auto) Neutrophils % (Manual) Band Neutrophils % Lymphocytes % (Manual) Monocytes % (Manual) Platelet Estimate Anisocytosis (manual) Target Cells PT INR APTT Sodium Potassium Chloride Carbon Dioxide Anion Gap BUN Creatinine Est GFR ( Amer) Est GFR (Non-Af Amer) POC Glucose (mg/dL) 148 H 31 L* Random Glucose Hemoglobin A1c Calcium Magnesium Total Bilirubin AST ALT Alkaline Phosphatase Total Protein Albumin Globulin Albumin/Globulin Ratio Anti-Mitochondrial Ab Negative 11/13/17 11/14/17 11/14/17 23:39 05:22 06:11 WBC 10.1 RBC 2.95 L Hgb 10.0 L Hct 27.2 L MCV 92.4 MCH 33.9 H MCHC 36.7 RDW 16.3 H Plt Count 123 L MPV 9.7 Neut % (Auto) 86.0 H Lymph % (Auto) 4.0 L Rawl[place] % (Auto) 10.0 Eos % (Auto) 0.0 Baso % (Auto) 0.0 Neut # (Auto) 8.8 H Lymph # (Auto) 0.4 L [place] # (Auto) 0.9 H Eos # (Auto) 0.0 Baso # (Auto) 0.0 Neutrophils % (Manual) 82 H Band Neutrophils % 5 H Lymphocytes % (Manual) 4 L Monocytes % (Manual) 9 Platelet Estimate Slightly decreased L Anisocytosis (manual) Slight Target Cells Moderate PT INR APTT Sodium Potassium Chloride Carbon Dioxide Anion Gap BUN Creatinine Est GFR ( Amer) Est GFR (Non-Af Amer) POC Glucose (mg/dL) 124 H 100 Random Glucose Hemoglobin A1c Calcium Magnesium Total Bilirubin AST ALT Alkaline Phosphatase Total Protein Albumin Globulin Albumin/Globulin Ratio Anti-Mitochondrial Ab 11/14/17 11/14/17 11/14/17 06:11 06:11 06:11 WBC RBC Hgb Hct MCV MCH MCHC RDW Plt Count MPV Neut % (Auto) Lymph % (Auto) [place] % (Auto) Eos % (Auto) Baso % (Auto) Neut # (Auto) Lymph # (Auto) [place] # (Auto) Eos # (Auto) Baso # (Auto) Neutrophils % (Manual) Band Neutrophils % Lymphocytes % (Manual) Monocytes % (Manual) Platelet Estimate Anisocytosis (manual) Target Cells PT 13.2 H INR 1.2 APTT 28 Sodium 142 Potassium 3.4 L Chloride 105 Carbon Dioxide 22 Anion Gap 18 BUN 83 H Creatinine 5.2 H Est GFR ( Amer) 13 Est GFR (Non-Af Amer) 11 POC Glucose (mg/dL) Random Glucose 96 Hemoglobin A1c 5.6 Calcium 6.3 L Magnesium 2.0 Total Bilirubin 26.8 H AST 42 ALT 54 Alkaline Phosphatase 226 H Total Protein 5.4 L Albumin 2.4 L Globulin 2.9 Albumin/Globulin Ratio 0.8 L Anti-Mitochondrial Ab 11/14/17 11/14/17 11:55 17:46 WBC RBC Hgb Hct MCV MCH MCHC RDW Plt Count MPV Neut % (Auto) Lymph % (Auto) [place] % (Auto) Eos % (Auto) Baso % (Auto) Neut # (Auto) Lymph # (Auto) [place] # (Auto) Eos # (Auto) Baso # (Auto) Neutrophils % (Manual) Band Neutrophils % Lymphocytes % (Manual) Monocytes % (Manual) Platelet Estimate Anisocytosis (manual) Target Cells PT INR APTT Sodium Potassium Chloride Carbon Dioxide Anion Gap BUN Creatinine Est GFR ( Amer) Est GFR (Non-Af Amer) POC Glucose (mg/dL) 111 H 177 H Random Glucose Hemoglobin A1c Calcium Magnesium Total Bilirubin AST ALT Alkaline Phosphatase Total Protein Albumin Globulin Albumin/Globulin Ratio Anti-Mitochondrial Ab Critical Care Progress Note - Nutrition Nutrition: Nutrition Category Date Time Status Liquid Diet [DIET] Diets 11/14/17 Dinner Active Attending/Attestation - Attestation I have personally seen and examined this patient.: Yes I have fully participated in the care of the patient.: Yes I have reviewed all pertinent clinical information: Yes Notes (Text): 11/14/17 18:38 Today: November The Patient was seen and examined at the bedside, Medical records reviewed, and management issues were discussed and formulated with the house staff. I have reviewed all the relevant clinical, laboratory, hemodynamic, radiographic data and medications Events reviewed Pain issues, skin care, head of the bed elevation, glycemic control were addressed. Agree with above resident's assessment and treatment plans of care as transcribed in Dr. Das's note.
--- NOTE | 2017-11-14 17:43 | CP.PCM.PN ---
Subjective - Date & Time of Evaluation Date of Evaluation: 11/13/17 Time of Evaluation: 12:00 - Subjective Subjective: Feeling better. Objective - Vital Signs/Intake and Output Vital Signs (last 24 hours): Temp Pulse Resp BP Pulse Ox 98 F 87 13 88/67 L 96 11/14/17 04:00 11/14/17 17:00 11/14/17 17:00 11/14/17 16:58 11/14/17 17:00 Intake and Output: 11/14/17 11/14/17 06:59 18:59 Intake Total 140.9 207.8 Output Total 780 Balance -639.1 207.8 - Medications Medications: Current Medications Calcium Acetate (Phoslo) 1,334 mg PO TIDCC [facility] Last Admin: 11/14/17 16:31 Dose: 1,334 mg Heparin Sodium (Porcine) (Heparin) 5,000 units SC Q8 [facility] Hydrocortisone Sodium Succinate (Solu-Cortef) 50 mg IV Q8 [facility] Last Admin: 11/14/17 14:04 Dose: 50 mg Norepinephrine Bitartrate 8 mg (/ Dextrose) 258 mls @ 7.74 mls/hr IV .Q24H PRN ; Protocol; 4 MCG/MIN PRN Reason: TITRATE PER MD ORDER Last Titration: 11/13/17 00:30 Dose: 0 mcg/min, 0 mls/hr Meropenem 500 mg/ Sodium (Chloride) 100 mls @ 100 mls/hr IVPB QAM [facility] PRN Reason: Protocol Last Admin: 11/14/17 09:19 Dose: 100 mls/hr Vasopressin 40 units/ Dextrose 40 mls @ 2.4 mls/hr IV .[id number] JAQUELINE; 0.04 UNITS/ MIN PRN Reason: Protocol Last Admin: 11/14/17 16:51 Dose: Not Given Ciprofloxacin (Cipro 400mg/200ml Dsw) 400 mg in 200 mls @ 133 mls/hr IVPB Q24H [facility] PRN Reason: Protocol Last Admin: 11/14/17 16:31 Dose: 133 mls/hr Insulin Aspart (Novolog) 0 unit SC Q6H [facility] PRN Reason: Protocol Last Admin: 11/14/17 12:52 Dose: Not Given Ondansetron HCl (Zofran Inj) 4 mg IVP Q6 PRN PRN Reason: Nausea/Vomiting Last Admin: 11/12/17 14:52 Dose: 4 mg Pantoprazole Sodium (Protonix Inj) 40 mg IVP DAILY [facility] Last Admin: 11/14/17 09:18 Dose: 40 mg Vitamin B Complex/Vit C/Folic Acid (Nephro-Ken) 1 tab PO 0800 [facility] Last Admin: 11/14/17 12:06 Dose: 1 tab - Labs Labs: 11/14/17 06:11 11/14/17 06:11 PT 13.2 SECONDS (9.7-12.2) H 11/14/17 06:11 INR 1.2 11/14/17 06:11 APTT 28 SECONDS (21-34) 11/14/17 06:11 - Head Exam Head Exam: ATRAUMATIC - Eye Exam Eye Exam: Scleral icterus - ENT Exam ENT Exam: Mucous Membranes Dry - Respiratory Exam Respiratory Exam: NORMAL BREATHING PATTERN - Cardiovascular Exam Cardiovascular Exam: +S1, +S2 - GI/Abdominal Exam GI & Abdominal Exam: Normal Bowel Sounds Assessment and Plan (1) Liver mass Assessment & Plan: suspect malignancy causing obstructive jaundice and cholangitis s/p cholecystostomy will need tissue evaluation once more stable CA 19-9 elevated, AFP normal Status: Acute (2) Leukocytosis Assessment & Plan: on antibiotics Status: Acute (3) Anemia Assessment & Plan: chronic disease Status: Acute (4) Thrombocytopenia Assessment & Plan: related to sepsis Status: Acute
--- NOTE | 2017-11-14 17:45 | CP.PCM.PN ---
Subjective - Date & Time of Evaluation Date of Evaluation: 11/14/17 Time of Evaluation: 13:00 - Subjective Subjective: Feeling better, family at bedside. Objective - Vital Signs/Intake and Output Vital Signs (last 24 hours): Temp Pulse Resp BP Pulse Ox 98 F 87 13 88/67 L 96 11/14/17 04:00 11/14/17 17:00 11/14/17 17:00 11/14/17 16:58 11/14/17 17:00 Intake and Output: 11/14/17 11/14/17 06:59 18:59 Intake Total 140.9 207.8 Output Total 780 Balance -639.1 207.8 - Medications Medications: Current Medications Calcium Acetate (Phoslo) 1,334 mg PO TIDCC [facility] Last Admin: 11/14/17 16:31 Dose: 1,334 mg Heparin Sodium (Porcine) (Heparin) 5,000 units SC Q8 [facility] Hydrocortisone Sodium Succinate (Solu-Cortef) 50 mg IV Q8 [facility] Last Admin: 11/14/17 14:04 Dose: 50 mg Norepinephrine Bitartrate 8 mg (/ Dextrose) 258 mls @ 7.74 mls/hr IV .Q24H PRN ; Protocol; 4 MCG/MIN PRN Reason: TITRATE PER MD ORDER Last Titration: 11/13/17 00:30 Dose: 0 mcg/min, 0 mls/hr Meropenem 500 mg/ Sodium (Chloride) 100 mls @ 100 mls/hr IVPB QAM [facility] PRN Reason: Protocol Last Admin: 11/14/17 09:19 Dose: 100 mls/hr Vasopressin 40 units/ Dextrose 40 mls @ 2.4 mls/hr IV .[id number] [facility]; 0.04 UNITS/ MIN PRN Reason: Protocol Last Admin: 11/14/17 16:51 Dose: Not Given Ciprofloxacin (Cipro 400mg/200ml Dsw) 400 mg in 200 mls @ 133 mls/hr IVPB Q24H [facility] PRN Reason: Protocol Last Admin: 11/14/17 16:31 Dose: 133 mls/hr Insulin Aspart (Novolog) 0 unit SC Q6H [facility] PRN Reason: Protocol Last Admin: 11/14/17 12:52 Dose: Not Given Ondansetron HCl (Zofran Inj) 4 mg IVP Q6 PRN PRN Reason: Nausea/Vomiting Last Admin: 11/12/17 14:52 Dose: 4 mg Pantoprazole Sodium (Protonix Inj) 40 mg IVP DAILY [facility] Last Admin: 11/14/17 09:18 Dose: 40 mg Vitamin B Complex/Vit C/Folic Acid (Nephro-Ken) 1 tab PO 0800 [facility] Last Admin: 11/14/17 12:06 Dose: 1 tab - Labs Labs: 11/14/17 06:11 11/14/17 06:11 PT 13.2 SECONDS (9.7-12.2) H 11/14/17 06:11 INR 1.2 11/14/17 06:11 APTT 28 SECONDS (21-34) 11/14/17 06:11 - Eye Exam Eye Exam: Scleral icterus - ENT Exam ENT Exam: Mucous Membranes Dry - Respiratory Exam Respiratory Exam: NORMAL BREATHING PATTERN - Cardiovascular Exam Cardiovascular Exam: +S1, +S2 - GI/Abdominal Exam GI & Abdominal Exam: Normal Bowel Sounds Assessment and Plan (1) Liver mass Assessment & Plan: suspect malignancy causing obstructive jaundice and cholangitis s/p cholecystostomy will need tissue evaluation once more stable; for possible transfer to [facility] CA 19-9 elevated, normal AFP Status: Acute (2) Anemia Assessment & Plan: chronic disease Status: Acute (3) Thrombocytopenia Assessment & Plan: secondary to sepsis Status: Acute
--- NOTE | 2017-11-14 18:47 | CP.PCM.PN ---
Subjective - Date & Time of Evaluation Date of Evaluation: 11/14/17 Time of Evaluation: 18:44 - Subjective Subjective: no cp no sob no montano no abd pain still anxioius re ercp plans Objective - Vital Signs/Intake and Output Vital Signs (last 24 hours): Temp Pulse Resp BP Pulse Ox 98 F 87 13 88/67 L 96 11/14/17 04:00 11/14/17 17:00 11/14/17 17:00 11/14/17 16:58 11/14/17 17:00 Intake and Output: 11/14/17 11/14/17 06:59 18:59 Intake Total 140.9 207.8 Output Total 780 Balance -639.1 207.8 - Medications Medications: Current Medications Calcium Acetate (Phoslo) 1,334 mg PO TIDCC [facility] Last Admin: 11/14/17 16:31 Dose: 1,334 mg Heparin Sodium (Porcine) (Heparin) 5,000 units SC Q8 [facility] Last Admin: 11/14/17 17:55 Dose: 5,000 units Hydrocortisone Sodium Succinate (Solu-Cortef) 50 mg IV Q8 [facility] Last Admin: 11/14/17 14:04 Dose: 50 mg Norepinephrine Bitartrate 8 mg (/ Dextrose) 258 mls @ 7.74 mls/hr IV .Q24H PRN ; Protocol; 4 MCG/MIN PRN Reason: TITRATE PER MD ORDER Last Titration: 11/13/17 00:30 Dose: 0 mcg/min, 0 mls/hr Meropenem 500 mg/ Sodium (Chloride) 100 mls @ 100 mls/hr IVPB QAM [facility] PRN Reason: Protocol Last Admin: 11/14/17 09:19 Dose: 100 mls/hr Vasopressin 40 units/ Dextrose 40 mls @ 2.4 mls/hr IV .[id number] [facility]; 0.04 UNITS/ MIN PRN Reason: Protocol Last Admin: 11/14/17 16:51 Dose: Not Given Ciprofloxacin (Cipro 400mg/200ml Dsw) 400 mg in 200 mls @ 133 mls/hr IVPB Q24H [facility] PRN Reason: Protocol Last Admin: 11/14/17 16:31 Dose: 133 mls/hr Insulin Aspart (Novolog) 0 unit SC Q6H [facility] PRN Reason: Protocol Last Admin: 11/14/17 17:54 Dose: 1 u Ondansetron HCl (Zofran Inj) 4 mg IVP Q6 PRN PRN Reason: Nausea/Vomiting Last Admin: 11/12/17 14:52 Dose: 4 mg Pantoprazole Sodium (Protonix Inj) 40 mg IVP DAILY [facility] Last Admin: 11/14/17 09:18 Dose: 40 mg Vitamin B Complex/Vit C/Folic Acid (Nephro-Ken) 1 tab PO 0800 [facility] Last Admin: 11/14/17 12:06 Dose: 1 tab - Labs Labs: 11/14/17 06:11 11/14/17 06:11 PT 13.2 SECONDS (9.7-12.2) H 11/14/17 06:11 INR 1.2 11/14/17 06:11 APTT 28 SECONDS (21-34) 11/14/17 06:11 - Constitutional Appears: Well, Non-toxic - Eye Exam Eye Exam: Scleral icterus - ENT Exam ENT Exam: Mucous Membranes Dry - Respiratory Exam Respiratory Exam: NORMAL BREATHING PATTERN. absent: Accessory Muscle Use, Clear to Ausculation Bilateral Additional comments: dec bs - Cardiovascular Exam Cardiovascular Exam: REGULAR RHYTHM, +S1, +S2 - GI/Abdominal Exam GI & Abdominal Exam: Soft, Normal Bowel Sounds. absent: Tenderness Additional comments: morbid obesity drain right flank - Neurological Exam Neurological Exam: Alert, Awake, Oriented x3 - Skin Skin Exam: absent: Normal Color Additional comments: jaundiced Assessment and Plan - Assessment and Plan (Free Text) Assessment: S/p Biliary drain Septic Shock still on vasopressin ERCP plan Surgical resection? Continue ICU care: From ICU note: 77 year old male with past medical history of HTN, A fib, CHF is admitted for painless jaundice with T. Bili of 37.6 and MACIE in need for emergent dialysis. Patient was admitted to [facility] but due to need for emergent dialysis, was transferred to [place]. Septic Shock due to ascending cholangitis cont abx cont pressors Acute Renal Failure due to septic shock - MACIE on CKD stage IV getting HD - BUN/Cr: 96/7.3 - Pt will have HD as needed - RIJ trialysis cath inserted on 11/10/17 - NephroDr. Carolina is consulted Cardiology: - PMHx of A fib and CHF with EF of 40% on recent echo with global hypokenesis A. A fib - Currently rate controlled - Oral AC on hold for possible procedures Acute on chronic Diastolic CHF with EF of 40 % - Pro-BNP [place] admission was 86205 - Patient currently hypotensive and in septic shock. Currently on Vassopressin Pulmonology - SOB likely 2/2 CHF exacerbation acute on chronic / Fluid overload from Acute renal failure GI- Choliangiocarcinoma / Pancreatic Mass / possible Cholangitis A. Painless jaundice - T. Bili on admission was 37.6 - D. Bili 32.5. Alk phos 346. AST 78/ ALT 74 - MRCP done at [place] on 10/31 showed intra and extrahepatic biliary dilation with common bile duct measuring 17 mm in the seth hepatis - IR is consulted for emergent cholecystostomy tube - GI, Dr. Neville consulted for ERCP - Surgery, Dr. Vaughn is consulted - Pt is hypotensive and currently on pressors. There is concern for ascending cholangitis. Pt afebrile. A&Ox 3. - Currently on Meropenem - Hematuria
--- NOTE | 2017-11-14 21:04 | PN ---
DATE: 11/14/2017 INFECTIOUS DISEASE FOLLOWUP SUBJECTIVE: The patient is afebrile. He is going to be transferred to another hospital for workup for ERCP. PHYSICAL EXAMINATION: VITAL SIGNS: T-max is 98, blood pressure 91/47, respirations 14. GENERAL: He is awake and alert, remains jaundiced, but he says there was no dialysis today. HEENT: Head is atraumatic. He has a triple lumen and the right IJ. LUNGS: Clear. No crackles or rales present. HEART: S1 and S2 are regular. ABDOMEN: Soft. He has a drain. Has a cholecystostomy tube present. Denies any abdominal pain right now. EXTREMITIES: Have Venodyne boots on. LABORATORY DATA: Labs are noted. Labs show white count is 10.1, hemoglobin 10, hematocrit 27.2, platelet count is 123, his creatinine today is 5.2. Potassium remains at 3.4, and alk phos is 226 and so it is better. Liver enzymes are almost normal. Total bilirubin is still 26.8. He came with a 36 plus bilirubin. His body fluid culture grew Stenotrophomonas maltophilia which is sensitive to Bactrim as well as to Cipro and Fortaz. Cipro sensitivity is 0.5. Bactrim is less than 10. The patient remains on dialysis. Hence, I am going to add Cipro once a day which might be easier to manage at this time since he had acute renal failure. He does have history of atrial fib, and he came in here with acute kidney injury, and Bactrim may be hard on it and the patient had obstructive jaundice, hypertension, and came in septic shock. Blood cultures have been negative. So, I am going to leave him on the Merrem for time being along with the Cipro. He does have a cholecystostomy tube, and once he gets stabilized, I guess meropenem he is on from the day of admission, which is 11/10/2017 here. So, four days of meropenem he is on. The patient to be followed up as he does have a cholecystostomy tube at this time. Stephania Abdi MD
[2017-11-15] MEDS: (Novolog) Insulin Aspart, Recombinant 100 u/ml 10 ml vial SC SCH ×4 (00:32→18:55)
[2017-11-15] MEDS: Vasopressin 40 UNITS in Dextrose 5% In Water 38 ML IV SCH ×3 (00:57→21:20)
[2017-11-15 06:45] LABS: INR 1.3; PROTHROMBIN TIME 14.6 SECONDS (9.7-12.2)
[2017-11-15 06:53] LABS: HEMOGLOBIN 10.3 g/dL (12.0-18.0); MEAN CELL VOLUME 92.5 fL (80.0-94.0); MEAN CORPUSCULAR HEMOGLOBIN 32.8 pg (27.0-31.0); MEAN CORPUSCULAR HGB CONC 35.5 g/dL (33.0-37.0); MEAN PLATELET VOLUME 9.6 fL (7.2-11.7); PLATELET COUNT 145 K/uL (130-400); RBC 3.14 Mil/uL (4.40-5.90); RED CELL DISTRIBUTION WIDTH 16.1 % (11.5-14.5); WHITE BLOOD COUNT 12.5 K/uL (4.8-10.8)
[2017-11-15 07:06] LABS: ALB/GLOB RATIO 0.9 (1.0-2.1); ALBUMIN 2.7 g/dL (3.5-5.0); CALCIUM 7.1 mg/dl (8.6-10.4)
[2017-11-15] MEDS: Multivitamin Vitamin B Complex (Nephro-Vite) Tab PO SCH (07:53)
[2017-11-15] MEDS: Meropenem 500 MG in Sodium Chloride 0.9% 100 ML IVPB SCH (09:28)
--- NOTE | 2017-11-15 09:36 | CP.PCM.PN ---
Subjective - Date & Time of Evaluation Date of Evaluation: 11/15/17 Time of Evaluation: 09:33 - Subjective Subjective: GI Fellow PGY4, progress note. Patient seen and examined at bedside. Biliary drain is leaking and surgical team aware. Pressors continue to be weaned off. Denies abdominal pain. Once clinically stable, I will contact [facility] transfer team again to begin process. 12pt ROS completed and negative except for as above. Objective - Vital Signs/Intake and Output Vital Signs (last 24 hours): Temp Pulse Resp BP Pulse Ox 97.4 F L 85 13 105/78 95 11/15/17 08:00 11/15/17 09:03 11/15/17 09:03 11/15/17 09:03 11/15/17 09:03 Intake and Output: 11/15/17 11/15/17 06:59 18:59 Intake Total 30.6 1.2 Output Total 200 850 Balance -169.4 -848.8 - Medications Medications: Current Medications Calcium Acetate (Phoslo) 1,334 mg PO TIDCC [facility] Last Admin: 11/15/17 07:53 Dose: 1,334 mg Heparin Sodium (Porcine) (Heparin) 5,000 units SC Q8 [facility] Last Admin: 11/15/17 06:13 Dose: 5,000 units Hydrocortisone Sodium Succinate (Solu-Cortef) 50 mg IV Q8 [facility] Last Admin: 11/15/17 06:10 Dose: 50 mg Norepinephrine Bitartrate 8 mg (/ Dextrose) 258 mls @ 7.74 mls/hr IV .Q24H PRN ; Protocol; 4 MCG/MIN PRN Reason: TITRATE PER MD ORDER Last Titration: 11/13/17 00:30 Dose: 0 mcg/min, 0 mls/hr Meropenem 500 mg/ Sodium (Chloride) 100 mls @ 100 mls/hr IVPB QAM [facility] PRN Reason: Protocol Last Admin: 11/15/17 09:28 Dose: 100 mls/hr Vasopressin 40 units/ Dextrose 40 mls @ 2.4 mls/hr IV .[id number] [facility]INE; 0.04 UNITS/ MIN PRN Reason: Protocol Last Titration: 11/15/17 03:46 Dose: 0.01 units/min, 0.6 mls/hr Ciprofloxacin (Cipro 400mg/200ml Dsw) 400 mg in 200 mls @ 133 mls/hr IVPB Q24H [facility] PRN Reason: Protocol Last Admin: 11/14/17 16:31 Dose: 133 mls/hr Insulin Aspart (Novolog) 0 unit SC Q6H [facility] PRN Reason: Protocol Last Admin: 11/15/17 06:14 Dose: Not Given Ondansetron HCl (Zofran Inj) 4 mg IVP Q6 PRN PRN Reason: Nausea/Vomiting Last Admin: 11/12/17 14:52 Dose: 4 mg Pantoprazole Sodium (Protonix Inj) 40 mg IVP DAILY [facility] Last Admin: 11/15/17 09:28 Dose: 40 mg Vitamin B Complex/Vit C/Folic Acid (Nephro-Ken) 1 tab PO 0800 [facility] Last Admin: 11/15/17 07:53 Dose: 1 tab - Labs Labs: 11/15/17 06:32 11/15/17 06:32 PT 14.6 SECONDS (9.7-12.2) H 11/15/17 06:32 INR 1.3 11/15/17 06:32 APTT 30 SECONDS (21-34) 11/15/17 06:32 - Constitutional Appears: Non-toxic, No Acute Distress - Head Exam Head Exam: ATRAUMATIC, NORMAL INSPECTION, NORMOCEPHALIC - Eye Exam Eye Exam: EOMI, Scleral icterus - Neck Exam Neck Exam: Full ROM, Normal Inspection. absent: Lymphadenopathy - Respiratory Exam Respiratory Exam: Clear to Ausculation Bilateral, NORMAL BREATHING PATTERN. absent: Wheezes - Cardiovascular Exam Cardiovascular Exam: REGULAR RHYTHM, +S1, +S2. absent: Murmur - GI/Abdominal Exam GI & Abdominal Exam: Soft, Normal Bowel Sounds. absent: Tenderness Additional comments: Biliary drain present with biliary leakage. - Extremities Exam Extremities Exam: Full ROM, Normal Capillary Refill, Normal Inspection. absent : Joint Swelling, Pedal Edema - Neurological Exam Neurological Exam: Alert, Awake, CN II-XII Intact, Normal Gait, Oriented x3 - Psychiatric Exam Psychiatric exam: Normal Affect, Normal Mood - Skin Skin Exam: Intact, Warm. absent: Normal Color Additional comments: Jaundice Assessment and Plan - Assessment and Plan (Free Text) Assessment: 77yo WM with hx of sytolic CHF, AFIB, recent GI bleed, and presenting with obstructive jaundice, HoTN, septic shock concerning for acute cholangitis and imaging findings concerning for malignancy. 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 -S/P PTC and drain 11/11/17 -PTC revealed: "Cholangiogram showed common hepatic mass extending into right hepatic duct". I discussed result with IR and concerned for cholangiocarcinoma. -Biliary drain is leaking, defer to surgery or IR. -Continue to monitor microbio. + Stenotrophomonas Maltophilia. Sensitive to cipro. Continue abx management per ID. -Agree with IV ppi for recent GI bleed and high risk for stress ulcer. As pressors weaned off, can change to PO. -PENDING labs: anti-smooth muscle. Anti-mitochondrial negative. -CA19-9, CEA significantly elevated, concerning for malignancy. -Patient too unstable for ERCP. -We have contacted [facility] for transfer as he may need specialized procedures. Revisit transfer when off pressor support. -Okay to start diet as previous tolerating and advance. Defer remaining diet to ICU team -Further management pending clinical progress. We will continue to monitor patient course.
--- NOTE | 2017-11-15 13:59 | CP.PCM.PN ---
Subjective - Date & Time of Evaluation Date of Evaluation: 11/15/17 Time of Evaluation: 09:35 - Subjective Subjective: Hospitalist Service: Patient seen this morning. Patient denies headache, denies chest pain, denies palpitations, reports abdominal distension, denies nausea, denies vomitting, reports he is having loose stool while on liquid diet. Objective - Vital Signs/Intake and Output Vital Signs (last 24 hours): Temp Pulse Resp BP Pulse Ox 97.4 F L 85 13 85/58 L 95 11/15/17 08:00 11/15/17 12:03 11/15/17 12:03 11/15/17 12:03 11/15/17 12:03 Intake and Output: 11/15/17 11/15/17 06:59 18:59 Intake Total 30.6 103.0 Output Total 200 850 Balance -169.4 -747.0 - Medications Medications: Current Medications Calcium Acetate (Phoslo) 1,334 mg PO TIDCC [facility] Last Admin: 11/15/17 13:04 Dose: 1,334 mg Heparin Sodium (Porcine) (Heparin) 5,000 units SC Q8 [facility] Last Admin: 11/15/17 13:04 Dose: 5,000 units Hydrocortisone Sodium Succinate (Solu-Cortef) 50 mg IV Q8 [facility] Last Admin: 11/15/17 06:10 Dose: 50 mg Norepinephrine Bitartrate 8 mg (/ Dextrose) 258 mls @ 7.74 mls/hr IV .Q24H PRN ; Protocol; 4 MCG/MIN PRN Reason: TITRATE PER MD ORDER Last Titration: 11/13/17 00:30 Dose: 0 mcg/min, 0 mls/hr Meropenem 500 mg/ Sodium (Chloride) 100 mls @ 100 mls/hr IVPB QAM JAQUELINE PRN Reason: Protocol Last Admin: 11/15/17 09:28 Dose: 100 mls/hr Vasopressin 40 units/ Dextrose 40 mls @ 2.4 mls/hr IV .[id number] JAQUELINE; 0.04 UNITS/ MIN PRN Reason: Protocol Last Titration: 11/15/17 03:46 Dose: 0.01 units/min, 0.6 mls/hr Ciprofloxacin (Cipro 400mg/200ml Dsw) 400 mg in 200 mls @ 133 mls/hr IVPB Q24H JAQUELINE PRN Reason: Protocol Last Admin: 11/14/17 16:31 Dose: 133 mls/hr Insulin Aspart (Novolog) 0 unit SC Q6H JAQUELINE PRN Reason: Protocol Last Admin: 11/15/17 12:53 Dose: Not Given Ondansetron HCl (Zofran Inj) 4 mg IVP Q6 PRN PRN Reason: Nausea/Vomiting Last Admin: 11/12/17 14:52 Dose: 4 mg Pantoprazole Sodium (Protonix Inj) 40 mg IVP DAILY [facility] Last Admin: 11/15/17 09:28 Dose: 40 mg Vitamin B Complex/Vit C/Folic Acid (Nephro-Ken) 1 tab PO 0800 [facility] Last Admin: 11/15/17 07:53 Dose: 1 tab - Labs Labs: 11/15/17 06:32 11/15/17 06:32 PT 14.6 SECONDS (9.7-12.2) H 11/15/17 06:32 INR 1.3 11/15/17 06:32 APTT 30 SECONDS (21-34) 11/15/17 06:32 - Constitutional Appears: Other (jaundince) - Head Exam Head Exam: NORMAL INSPECTION Additional comments: jaundiced - Eye Exam Eye Exam: EOMI - ENT Exam ENT Exam: Mucous Membranes Moist - Respiratory Exam Respiratory Exam: Clear to Ausculation Bilateral, NORMAL BREATHING PATTERN. absent: Rales, Rhonchi, Wheezes - Cardiovascular Exam Cardiovascular Exam: REGULAR RHYTHM, +S1, +S2 - GI/Abdominal Exam GI & Abdominal Exam: Distended, Soft, Normal Bowel Sounds. absent: Firm, Guarding, Rigid, Tenderness, Rebound Additional comments: PTC tubes over the right lateral aspect of belly - Extremities Exam Extremities Exam: absent: Pedal Edema, Tenderness - Back Exam Back Exam: absent: rash noted - Neurological Exam Neurological Exam: Alert, Awake, Oriented x3 - Psychiatric Exam Psychiatric exam: Normal Affect, Normal Mood - Skin Skin Exam: Dry, Warm Additional comments: jaundice Assessment and Plan (1) Obstructive jaundice Status: Acute (2) Septic shock Status: Acute (3) Acute cholangitis Status: Acute (4) Jaundice Status: Acute (5) Congestive heart failure Status: Chronic (6) Acute renal failure Status: Acute (7) Atrial fibrillation Status: Acute (8) Prophylactic measure Status: Acute Attending/Attestation - Attestation I have personally seen and examined this patient.: Yes I have fully participated in the care of the patient.: Yes I have reviewed all pertinent clinical information, including history, physical exam and plan: Yes Notes (Text): 1) Septic Shock Assessment/Plan * Criteria: leukocytosis, tachycardia; came transported on [place]ering with pressor and requiring for emergent dialysis * Infectious Disease (Dr. Abdi) on board-->help appreciated * Ciprofloxacin 400mg IVPB Q24 (active since 11/14/17) * Meropenem 500mg IVPB QAM (active since 11/11/17) * Blood cultures (11/10/17): no growth after 5 days X2 * MRSA not detected * Urine culture (11/10/17): no growth * Bile (11/11/17): Stenotrophomonas Maltophilia * Bile (11/11/17; 2nd culture): no growth after 3 days * On 1 pressor * SoluCortef 50mg IV Q8H (active since 11/11/17) 2) Acute Renal Failure * Nephrology (Dr. Carolina) on board-->help appreciated * work up for adrenal adenoma later as outpt once stable * continue to uptrend and worsen, will plan for HD today as ordered (3rd session). continue to monitor for spontaneous renal recoverymaintain hemodynamics stable. avoid hypotension * Patient to have dialysis today (3rd session) * Phoslo 1334mg PO TIDCC * Nephrovite 1 tab PO daily 3) Painless Obstructive Jaundice Concern for mass * GI (Dr. Neville) on board-->help appreciated * Pending ERCP when stable * P[facility] * General surgery (Dr. Boudreaux) on board-->help appreciated * Follow-up with surgery residents regarding reinforcement of dressing given biliary leakage * hematology oncology (Dr. Deanne Jin) on board * suspect malignancy * causing obstructive jaundice and cholangitis * s/p cholecystostomy * will need tissue evaluation once more stable; for possible transfer to [facility] * Discussed with ICU, in regards to patient as well. * 11/11/17 PTC with biliary drain revealed: "Cholangiogram showed common hepatic mass extending into right hepatic duct". Cholecystostomy tube placement. Placement of an Internal External 10 fr biliary drain. * CT abdomen/pelvis (11/11/17): markedly distended gallbladder with calcified cholelithiasis and questionable wall thickening for which acute cholecystitis related to cystic duct or distal CBD obstruction cannot be excluded. Moderate intrahepatic biliary ductal dilatation and dilated CBD. Very limited evaluation of the pancreatic head. Choledocholithiaiss or pancreatic mass cannot be excluded. MRCP recommended. * Abdominal US (11/11/17): hepatomegaly with steatosis. Cholelithiasis with mild gallbladder wall thickening. Sonographic [place];s sign Equivocal for acute cholecystitis. intra and extrahepatic biliary ductal dilatation for which choledocholithisis cannt be excluded. * MRCP (10/31/17): re demonstration of severe intrahepatic and extrahepatic biliary dilatation with common bile duct 17mm in pora hepatitis. No gross evidence of pancreatic mass. ERCP recommended * Hepatitis panel: negative * Anti-mitochondrial AB: negative * CEA is elevated * pending transfer to [facility] for specialized care-->patient is currently on pressor; noted hypotensive during afternoon 4) Coagulopathy * INR: 1.3 (previously 17.60 requiring FFP) patient was on coumadin for known atrial fibrillation history 5) Atrial fibrillation * Patient is on pressor * Off anti-hypertensive * Not presently on chemical anticoagulation except for DVT dosing * Echocardiogram (10/31/17): left ventricle is normal size. normal left ventricular thickness. systolic function is mildly impaired, global hypokinesis of left ventricle, left atrium is moderately dilated, mitral regurgitation is moderate 6) Congestive Heart Failure, Systolic * Cardiology (Dr. Combs) on board * Echocardiogram (10/31/17): left ventricle is normal size. normal left ventricular thickness. systolic function is mildly impaired, global hypokinesis of left ventricle, left atrium is moderately dilated, mitral regurgitation is moderate * off anti-hypertensive; currently on pressor * off anticoagulation pending ERCP when more stable 7) Prophylactic measure * patient is off chemical anticoagulation presently; he has prior admission for coumadin toxicity; he is also awaiting ercp when he is more stable * protonix 40mg IV daily * Full code * Family at bedside; spoke with patient and family today * pending transfer to [facility]; patient is on pressor.
[2017-11-15] MEDS: Ciprofloxacin 400mg/200ml D5W 400 MG/200 ML BAG IVPB SCH (14:44)
--- NOTE | 2017-11-15 14:50 | CP.PCM.PN ---
Subjective - Date & Time of Evaluation Date of Evaluation: 11/15/17 Time of Evaluation: 14:49 - Subjective Subjective: Nephrology Consultation Note Assessment: critical oligoanuric MACIE likely due to ATN due to shock with ? sepsis ? bile cast nephropathy. other possible causes may include hepato-renal, recent IV contrast exposure: started HD 11/11/17 HAGMA obstructive jaundice ? possible cause as pancreatic mass/cholangicarcinoma HTN, CHF, A fib, morbd obesity moderate TR left 2 cm adrenal adenoma hyperphosphatemia Anemia s/p cholecystotomy tube Plan UOP better but BUN/cr continue to uptrend and worsen, will plan for HD today as ordered (3rd session). continue to monitor for spontaneous renal recovery maintain hemodynamics stable. avoid hypotension monitor I/O daily weights and renal function with BMP added phoslo, continue same GI, ID following plan for ERCP once stable. pt is being planned for transfer to tertiary care center work up for adrenal adenoma later as outpt once stable Dose meds/antibiotics for reduced GFR <10. Avoid fleets enema/magnesium based laxatives. Avoid nephrotoxins/NSAIDs/ iodinated contrast (unless needed emergently) Glycemic control, Further work up for as per primary team. Thanks for allowing me to participate in care of your patient. will follow with you. Please call if any Qs. had d/w family and team Dr Jairo Carolina Office: [phone] CC: none now reason for consult: MACIE HPI: Pt is a 77 y/o M with hx of HTN, CHF, A fib, morbd obesity recently diagnosed with jaundice and undergoing work up for it, so far suggestive of pancreatic mass, admitted to [facility] with MACIE, decreased urine output and rise in bili, he was found to have hypotension prior to ERCP hence was transferred to [place]. Pt had dialysis catheter placed and transferred to [facility] for dialysis initiation renal consult for MACIE management. pt feels ill and tired. has decresaed appetite. no aware about kidney disease in past says not making much urine no OTC/nsaids/herba meds CT with contrast done 10/30 evening. cr 10/31 AM 1.0 low BP noted, pt requiring pressors ROS: he denies SOB/chest pain/nausea/vomitting. rest all other neg except as mentioned in HPI siu removed. Physical Examination: General Appearance: Comfortable, co-operative. no acute distress Vitals reviewed and noted as below Head; Atraumatic, normocephalic ENT: no ulcers no thrush. Tongue is midline/moist. Oropharynx: no rash or ulcers. EYES: Pupils are equal, round and reactive to light accommodation. Eye muscles and extraocular movement intact. Sclera is icteric. Neck; supple no lymphadenopathy, no thyromegaly or bruit Lungs: normal respiratory rate/effort. Breath sounds appears clear b/l anteriorly Heart: Normal rate. s1s2 normal. No rub or gallop. Extremities: 1+ edema. No varicose veins Neurological: Patient is alert, awake, oriented x 3 follows commands, no focal deifict. NO ASTERIXIS Skin: dry and warm. Normal turgor. No rash. Palpitation: Normal elasticity for age. grossly yellow Abdomen: Abdomen is soft non tender no apparent organomegaly Psych: normal insight. has normal affect and mood MSK: no specific joint tenderness or swelling. Digits and nails normal, no deformity : kidney not palpable. bladder not distended . access: Rt MARK clemens Labs/imaging/EKG reviewed. Past medical history, past surgical history, social history, allergy reviewed and noted as below Family hx; no hx of CKD. rest non contributory work up: left adrenal 2 cm adenoma moderate TR and mildly reduced LVEF UA 100 prot and GNR Bilirubin 36 initially now down trending Objective - Vital Signs/Intake and Output Vital Signs (last 24 hours): Temp Pulse Resp BP Pulse Ox 97.4 F L 82 14 85/55 L 92 L 11/15/17 08:00 11/15/17 14:11 11/15/17 14:11 11/15/17 14:11 11/15/17 14:11 Intake and Output: 11/15/17 11/15/17 06:59 18:59 Intake Total 30.6 119.6 Output Total 200 850 Balance -169.4 -730.4 - Medications Medications: Current Medications Calcium Acetate (Phoslo) 1,334 mg PO TIDCC [facility] Last Admin: 11/15/17 13:04 Dose: 1,334 mg Heparin Sodium (Porcine) (Heparin) 5,000 units SC Q8 [facility] Last Admin: 11/15/17 13:04 Dose: 5,000 units Hydrocortisone Sodium Succinate (Solu-Cortef) 50 mg IV Q8 [facility] Last Admin: 11/15/17 14:41 Dose: 50 mg Norepinephrine Bitartrate 8 mg (/ Dextrose) 258 mls @ 7.74 mls/hr IV .Q24H PRN ; Protocol; 4 MCG/MIN PRN Reason: TITRATE PER MD ORDER Last Titration: 11/13/17 00:30 Dose: 0 mcg/min, 0 mls/hr Meropenem 500 mg/ Sodium (Chloride) 100 mls @ 100 mls/hr IVPB QAM JAQUELINE PRN Reason: Protocol Last Admin: 11/15/17 09:28 Dose: 100 mls/hr Vasopressin 40 units/ Dextrose 40 mls @ 2.4 mls/hr IV .[id number] JAQUELINE; 0.04 UNITS/ MIN PRN Reason: Protocol Last Titration: 11/15/17 14:25 Dose: 0.02 units/min, 1.2 mls/hr Ciprofloxacin (Cipro 400mg/200ml Dsw) 400 mg in 200 mls @ 133 mls/hr IVPB Q24H JAQUELINE PRN Reason: Protocol Last Admin: 11/15/17 14:44 Dose: 133 mls/hr Insulin Aspart (Novolog) 0 unit SC Q6H JAQUELINE PRN Reason: Protocol Last Admin: 11/15/17 12:53 Dose: Not Given Ondansetron HCl (Zofran Inj) 4 mg IVP Q6 PRN PRN Reason: Nausea/Vomiting Last Admin: 11/12/17 14:52 Dose: 4 mg Pantoprazole Sodium (Protonix Inj) 40 mg IVP DAILY [facility] Last Admin: 11/15/17 09:28 Dose: 40 mg Vitamin B Complex/Vit C/Folic Acid (Nephro-Ken) 1 tab PO 0800 [facility] Last Admin: 11/15/17 07:53 Dose: 1 tab - Labs Labs: 11/15/17 06:32 11/15/17 06:32 PT 14.6 SECONDS (9.7-12.2) H 11/15/17 06:32 INR 1.3 11/15/17 06:32 APTT 30 SECONDS (21-34) 11/15/17 06:32
--- NOTE | 2017-11-15 15:20 | CP.CCUPN ---
<Jennie Wagner - Last Filed: 11/15/17 16:17> CCU Subjective - Physician Review Subjective (Free Text): 11/12/17 12:14 77 yo M w/ PMHx of HTN, A. Fib, CHF, admitted for painless jaundice(Tbil 37.6) and MACIE from [facility], in need of emergent HD. Complains of weakness, and isolated episode of nausea, pruritus improving. Pt denies SOB, chest pain, palpitations, abdominal pain, vomiting, fever, chills. Patient to be transferred to [facility] pending GI. 11/15/17 15:16 CCU Objective - Vital Signs / Intake & Output Vital Signs (Last 4 hours): Vital Signs Pulse Resp BP Pulse Ox 11/15/17 14:11 82 14 85/55 L 92 L 11/15/17 14:03 77 12 74/42 L 97 11/15/17 14:00 81 12 98 11/15/17 13:19 79 13 80/46 L 97 11/15/17 13:00 91 H 14 98 11/15/17 12:03 85 13 85/58 L 95 11/15/17 12:00 85 12 94 L Intake and Output (Last 8hrs): Intake & Output 11/15/17 11/15/17 11/15/17 06:59 14:59 22:59 Intake Total 23.4 119.6 Output Total 850 Balance 23.4 -730.4 Weight 303 lb 11.2 oz Intake: IV 14.4 16 Intake, IV Amount 9.0 103.6 IV port of HD cath 9.0 101.2 Right Proximal Port 2.4 Internal Jugular Output: Drainage 250 R lower cholecystostomy 0 Right upper biliary rain 250 Urine 600 Urine, Voided 600 Other: # Voids Urine, Voided 1 - Physical Exam Head: Positive for: Atraumatic, Normocephalic Extroacular Muscles: Positive for: EOMI Conjunctiva: Positive for: Icteric Mouth: Positive for: Moist Mucous Membranes Respiratory/Chest: Positive for: Clear to Auscultation. Negative for: Respiratory Distress, Accessory Muscle Use, Wheezes, Rales, Rhonchi Cardiovascular: Positive for: Regular Rate and Rhythm, Normal S1, S2 Abdomen: Positive for: Normal Bowel Sounds. Negative for: Tenderness, Distention, Peritoneal Signs, Guarding, Mass/Organomegaly Lower Extremity: Positive for: Edema (2+ B/L ). Negative for: CALF TENDERNESS Neurological: Positive for: GCS=15, Speech Normal, Memory Normal Skin: Positive for: Other (Jaundinced) Psychiatric: Positive for: Alert, Oriented x 3, Normal Insight, Normal Concentration - Medications Active Medications: Active Medications Generic Name Dose Route Start Last Admin Trade Name Freq PRN Reason Stop Dose Admin Calcium Acetate 1,334 mg 11/11/17 12:00 11/15/17 13:04 Phoslo PO 1,334 mg TIDCC JAQUELINE Administration Heparin Sodium (Porcine) 5,000 units 11/14/17 17:45 11/15/17 13:04 Heparin SC 5,000 units Q8 JAQUELINE Administration Hydrocortisone Sodium Succinate 50 mg 11/11/17 11:45 11/15/17 14:41 Solu-Cortef IV 50 mg Q8 JAQUELINE Administration Norepinephrine Bitartrate 8 mg 258 mls @ 7.74 mls/hr 11/10/17 16:04 11/13/17 00:30 / Dextrose IV 0 mcg/min .Q24H PRN 0 mls/hr TITRATE PER MD ORDER Titration Protocol 4 MCG/MIN Meropenem 500 mg/ Sodium 100 mls @ 100 mls/hr 11/11/17 10:00 11/15/17 09:28 Chloride IVPB 100 mls/hr QAM JAQUELINE Administration Protocol Vasopressin 40 units/ Dextrose 40 mls @ 2.4 mls/hr 11/10/17 21:30 11/15/17 14 :25 IV 0.02 units/min .[id number] JAQUELINE 1.2 mls/hr Protocol Titration 0.04 UNITS/MIN Ciprofloxacin 400 mg in 200 mls @ 133 mls/hr 11/14/17 15:30 11/15/17 14:44 Cipro 400mg/200ml Dsw IVPB 133 mls/hr Q24H JAQUELINE Administration Protocol Insulin Aspart 0 unit 11/11/17 00:00 11/15/17 12:53 Novolog SC Not Given Q6H JAQUELINE Protocol Ondansetron HCl 4 mg 11/11/17 16:49 11/12/17 14:52 Zofran Inj IVP 4 mg Q6 PRN Administration Nausea/Vomiting Pantoprazole Sodium 40 mg 11/11/17 10:00 11/15/17 09:28 Protonix Inj IVP 40 mg DAILY JAQUELINE Administration Vitamin B Complex/Vit C/Folic Acid 1 tab 11/12/17 08:00 11/15/17 07:53 Nephro-Ken PO 1 tab 0800 [facility] Administration - Patient Studies Lab Studies: Microbiology Studies 11/10/17 16:45 Blood Culture - Preliminary Blood-During Dialysis NO GROWTH AFTER 4 DAYS 11/10/17 17:15 Blood Culture - Preliminary Blood-During Dialysis NO GROWTH AFTER 4 DAYS 11/11/17 17:37 Gram Stain - Final Bile Body Fluid Culture - Preliminary NO GROWTH AFTER 3 DAYS 11/11/17 17:36 Gram Stain - Final Bile Body Fluid Culture - Final Stenotrophomonas Maltophilia Lab Studies 11/15/17 11/15/17 11/15/17 Range/Units 12:01 06:32 06:32 WBC (4.8-10.8) K/uL RBC (4.40-5.90) Mil/uL Hgb (12.0-18.0) g/dL Hct (35.0-51.0) % MCV (80.0-94.0) fL MCH (27.0-31.0) pg MCHC (33.0-37.0) g/dL RDW (11.5-14.5) % Plt Count (130-400) K/uL MPV (7.2-11.7) fL PT 14.6 H (9.7-12.2) SECONDS INR 1.3 APTT 30 (21-34) SECONDS Sodium 142 (132-148) mmol/L Potassium 3.7 (3.6-5.2) mmol/L Chloride 103 (98-107) mmol/L Carbon Dioxide 24 (22-30) mmol/L Anion Gap 20 (10-20) BUN 104 H* D (9-20) mg/dL Creatinine 6.0 H (0.8-1.5) mg/dL Est GFR ( Amer) 11 Est GFR (Non-Af Amer) 9 POC Glucose (mg/dL) 124 H (65-110) mg/dL Random Glucose 127 H (75-110) mg/dL Calcium 7.1 L (8.6-10.4) mg/dl Phosphorus 7.7 H (2.5-4.5) mg/dL Magnesium 2.3 (1.6-2.3) mg/dL Total Bilirubin 27.9 H (0.2-1.3) mg/dL AST 53 (17-59) U/L ALT 67 (21-72) U/L Alkaline Phosphatase 231 H (38-126) U/L Total Protein 5.8 L (6.3-8.3) g/dL Albumin 2.7 L (3.5-5.0) g/dL Globulin 3.1 (2.2-3.9) gm/dL Albumin/Globulin Ratio 0.9 L (1.0-2.1) 11/15/17 11/15/17 11/14/17 Range/Units 06:32 05:55 23:49 WBC 12.5 H (4.8-10.8) K/uL RBC 3.14 L (4.40-5.90) Mil/uL Hgb 10.3 L (12.0-18.0) g/dL Hct 29.0 L (35.0-51.0) % MCV 92.5 (80.0-94.0) fL MCH 32.8 H (27.0-31.0) pg MCHC 35.5 (33.0-37.0) g/dL RDW 16.1 H (11.5-14.5) % Plt Count 145 (130-400) K/uL MPV 9.6 (7.2-11.7) fL PT (9.7-12.2) SECONDS INR APTT (21-34) SECONDS Sodium (132-148) mmol/L Potassium (3.6-5.2) mmol/L Chloride (98-107) mmol/L Carbon Dioxide (22-30) mmol/L Anion Gap (10-20) BUN (9-20) mg/dL Creatinine (0.8-1.5) mg/dL Est GFR ( Amer) Est GFR (Non-Af Amer) POC Glucose (mg/dL) 127 H 136 H (65-110) mg/dL Random Glucose (75-110) mg/dL Calcium (8.6-10.4) mg/dl Phosphorus (2.5-4.5) mg/dL Magnesium (1.6-2.3) mg/dL Total Bilirubin (0.2-1.3) mg/dL AST (17-59) U/L ALT (21-72) U/L Alkaline Phosphatase (38-126) U/L Total Protein (6.3-8.3) g/dL Albumin (3.5-5.0) g/dL Globulin (2.2-3.9) gm/dL Albumin/Globulin Ratio (1.0-2.1) 11/14/17 Range/Units 17:46 WBC (4.8-10.8) K/uL RBC (4.40-5.90) Mil/uL Hgb (12.0-18.0) g/dL Hct (35.0-51.0) % MCV (80.0-94.0) fL MCH (27.0-31.0) pg MCHC (33.0-37.0) g/dL RDW (11.5-14.5) % Plt Count (130-400) K/uL MPV (7.2-11.7) fL PT (9.7-12.2) SECONDS INR APTT (21-34) SECONDS Sodium (132-148) mmol/L Potassium (3.6-5.2) mmol/L Chloride (98-107) mmol/L Carbon Dioxide (22-30) mmol/L Anion Gap (10-20) BUN (9-20) mg/dL Creatinine (0.8-1.5) mg/dL Est GFR ( Amer) Est GFR (Non-Af Amer) POC Glucose (mg/dL) 177 H (65-110) mg/dL Random Glucose (75-110) mg/dL Calcium (8.6-10.4) mg/dl Phosphorus (2.5-4.5) mg/dL Magnesium (1.6-2.3) mg/dL Total Bilirubin (0.2-1.3) mg/dL AST (17-59) U/L ALT (21-72) U/L Alkaline Phosphatase (38-126) U/L Total Protein (6.3-8.3) g/dL Albumin (3.5-5.0) g/dL Globulin (2.2-3.9) gm/dL Albumin/Globulin Ratio (1.0-2.1) Laboratory Results - last 24 hr 11/14/17 11/14/17 11/15/17 17:46 23:49 05:55 WBC RBC Hgb Hct MCV MCH MCHC RDW Plt Count MPV PT INR APTT Sodium Potassium Chloride Carbon Dioxide Anion Gap BUN Creatinine Est GFR ( Amer) Est GFR (Non-Af Amer) POC Glucose (mg/dL) 177 H 136 H 127 H Random Glucose Calcium Phosphorus Magnesium Total Bilirubin AST ALT Alkaline Phosphatase Total Protein Albumin Globulin Albumin/Globulin Ratio 11/15/17 11/15/17 11/15/17 06:32 06:32 06:32 WBC 12.5 H RBC 3.14 L Hgb 10.3 L Hct 29.0 L MCV 92.5 MCH 32.8 H MCHC 35.5 RDW 16.1 H Plt Count 145 MPV 9.6 PT 14.6 H INR 1.3 APTT 30 Sodium 142 Potassium 3.7 Chloride 103 Carbon Dioxide 24 Anion Gap 20 BUN 104 H* D Creatinine 6.0 H Est GFR ( Amer) 11 Est GFR (Non-Af Amer) 9 POC Glucose (mg/dL) Random Glucose 127 H Calcium 7.1 L Phosphorus 7.7 H Magnesium 2.3 Total Bilirubin 27.9 H AST 53 ALT 67 Alkaline Phosphatase 231 H Total Protein 5.8 L Albumin 2.7 L Globulin 3.1 Albumin/Globulin Ratio 0.9 L 11/15/17 12:01 WBC RBC Hgb Hct MCV MCH MCHC RDW Plt Count MPV PT INR APTT Sodium Potassium Chloride Carbon Dioxide Anion Gap BUN Creatinine Est GFR ( Amer) Est GFR (Non-Af Amer) POC Glucose (mg/dL) 124 H Random Glucose Calcium Phosphorus Magnesium Total Bilirubin AST ALT Alkaline Phosphatase Total Protein Albumin Globulin Albumin/Globulin Ratio Fingerstick Blood Sugar Results: 124 Review of Systems - Constitutional Constitutional: Weakness. absent: Chills - Cardiovascular Cardiovascular: absent: Chest Pain, Dyspnea - Respiratory Respiratory: absent: Cough, Dyspnea, Wheezing - Gastrointestinal Gastrointestinal: Abdominal Pain (post prandial). absent: Diarrhea, Vomiting Critical Care Progress Note - Nutrition Nutrition: Nutrition Category Date Time Status Liquid Diet [DIET] Diets 11/14/17 Dinner Active Assessment/Plan - Assessment and Plan (Free Text) Assessment: Cardiology: - PMHx of A fib and CHF with EF of 40% on recent echo with global hypokenesis A. A fib - Currently rate controlled A. CHF with EF of 40 % - Pro-B[place] admission [place] 85679 - Pt remains hypotensive on vassopressin and solucortef Pulmonology - SOB likely 2/2 CHF exacerbation - Currently on NC GI A. Painless jaundice - T bili improvin.8 - MRCP done at [facility] on 10/31 showed intra and extrahepatic biliary dilation with common bile duct measuring 17 mm in the seth hepatis - Right cholecystostomy and biliary drains placed 11/11 - GI, Dr. Neville consulted. Recommend pt follow up with [facility] for specialist care - Surgery, Dr. Vaughn is consulted - Pt is hypotensive and currently on pressors - Continue meropenem - Will start pt on liquid diet. - Positive stool occult - Negative hepatitis panel - Macias d/christina Renal A. MACIE on CKD stage IV - BUN/Cr:104/6.0 - HD MWF - RIJ trialysis cath inserted on 11/10/17 - Nephro, Dr. Carolina is consulted Heme/onc -CEA 3.4, CA 19-9 798 - Heme/onc, Dr. Jin is consulted. - GI, Dr. Neville consulted and recommend following up with specialist at [facility] Endo A. Hyperglycemia - No HgbA1c on record. Hyperglycemia likely 2/2 steroids - HgbA1c 5.6 - ISS - Accucheck ID A. Septic shock - WBC count improving - Hypotensive on vassopresisn and solucortef - Repeat blood culture grew Stenotrophomonas Maltophilia. Sensitivity pending - Currently on Merrem Prophylaxis - Protonix - SCDs - PT/OT - Date & Time Date: 11/15/17 Time: 16:20 <Lamine Larry - Last Filed: 11/15/17 22:05> CCU Objective - Vital Signs / Intake & Output Vital Signs (Last 4 hours): Vital Signs Temp Pulse Resp BP BP Pulse Ox 11/15/17 21:00 101 H 17 11/15/17 20:48 83 13 107/67 11/15/17 20:42 81 13 108/72 11/15/17 20:30 99/69 L 98 11/15/17 20:27 86 17 99/68 L 96 11/15/17 20:12 86 12 99/69 L 97 11/15/17 20:00 96.6 F L 81 14 102/66 107/68 94 L 11/15/17 19:57 76 13 107/68 96 11/15/17 19:42 85 14 98/71 L 96 11/15/17 19:30 15 102/66 103/66 96 11/15/17 19:12 79 13 101/63 97 11/15/17 19:00 79 13 102/70 97 11/15/17 18:57 79 13 102/70 97 11/15/17 18:42 84 15 107/63 97 11/15/17 18:30 18 101/67 99 11/15/17 18:27 76 13 101/67 98 11/15/17 18:12 81 14 102/75 97 Intake and Output (Last 8hrs): Intake & Output 11/15/17 11/15/17 11/15/17 06:59 14:59 22:59 Intake Total 23.4 360.8 208.4 Output Total 850 310 Balance 23.4 -489.2 -101.6 Weight 303 lb 11.2 oz Intake: IV 14.4 16 Intake, IV Amount 9.0 104.8 208.4 IV port of HD cath 9.0 101.2 200 Right Proximal Port 3.6 8.4 Internal Jugular Oral 240 Output: Drainage 250 310 R lower cholecystostomy 0 300 Right upper biliary rain 250 10 Urine 600 Urine, Voided 600 Other: # Voids Urine, Voided 1 # Bowel Movements 0 - Medications Active Medications: Active Medications Generic Name Dose Route Start Last Admin Trade Name Freq PRN Reason Stop Dose Admin Calcium Acetate 1,334 mg 11/11/17 12:00 11/15/17 17:00 Phoslo PO Not Given TIDCC JAQUELINE Heparin Sodium (Porcine) 5,000 units 11/14/17 17:45 11/15/17 13:04 Heparin SC 5,000 units Q8 JAQUELINE Administration Hydrocortisone Sodium Succinate 50 mg 11/11/17 11:45 11/15/17 14:41 Solu-Cortef IV 50 mg Q8 JAQUELINE Administration Norepinephrine Bitartrate 8 mg 258 mls @ 7.74 mls/hr 11/10/17 16:04 11/13/17 00:30 / Dextrose IV 0 mcg/min .Q24H PRN 0 mls/hr TITRATE PER MD ORDER Titration Protocol 4 MCG/MIN Meropenem 500 mg/ Sodium 100 mls @ 100 mls/hr 11/11/17 10:00 11/15/17 09:28 Chloride IVPB 100 mls/hr QAM JAQUELINE Administration Protocol Vasopressin 40 units/ Dextrose 40 mls @ 2.4 mls/hr 11/10/17 21:30 11/15/17 18 :55 IV Not Given .[id number] JAQUELINE Protocol 0.04 UNITS/MIN Ciprofloxacin 400 mg in 200 mls @ 133 mls/hr 11/14/17 15:30 11/15/17 14:44 Cipro 400mg/200ml Dsw IVPB 133 mls/hr Q24H JAQUELINE Administration Protocol Insulin Aspart 0 unit 11/11/17 00:00 11/15/17 18:55 Novolog SC Not Given Q6H JAQUELINE Protocol Ondansetron HCl 4 mg 11/11/17 16:49 11/12/17 14:52 Zofran Inj IVP 4 mg Q6 PRN Administration Nausea/Vomiting Pantoprazole Sodium 40 mg 11/11/17 10:00 11/15/17 09:28 Protonix Inj IVP 40 mg DAILY JAQUELINE Administration Vitamin B Complex/Vit C/Folic Acid 1 tab 11/12/17 08:00 11/15/17 07:53 Nephro-Ken PO 1 tab 0800 JAQUELINE Administration - Patient Studies Lab Studies: Microbiology Studies 11/10/17 16:45 Blood Culture - Final Blood-During Dialysis NO GROWTH AFTER 5 DAYS Gram Stain - Final TEST NOT PERFORMED 11/10/17 17:15 Blood Culture - Final Blood-During Dialysis NO GROWTH AFTER 5 DAYS Gram Stain - Final TEST NOT PERFORMED Lab Studies 11/15/17 11/15/17 11/15/17 Range/Units 12:01 06:32 06:32 WBC (4.8-10.8) K/uL RBC (4.40-5.90) Mil/uL Hgb (12.0-18.0) g/dL Hct (35.0-51.0) % MCV (80.0-94.0) fL MCH (27.0-31.0) pg MCHC (33.0-37.0) g/dL RDW (11.5-14.5) % Plt Count (130-400) K/uL MPV (7.2-11.7) fL PT 14.6 H (9.7-12.2) SECONDS INR 1.3 APTT 30 (21-34) SECONDS Sodium 142 (132-148) mmol/L Potassium 3.7 (3.6-5.2) mmol/L Chloride 103 (98-107) mmol/L Carbon Dioxide 24 (22-30) mmol/L Anion Gap 20 (10-20) BUN 104 H* D (9-20) mg/dL Creatinine 6.0 H (0.8-1.5) mg/dL Est GFR ( Amer) 11 Est GFR (Non-Af Amer) 9 POC Glucose (mg/dL) 124 H (65-110) mg/dL Random Glucose 127 H (75-110) mg/dL Calcium 7.1 L (8.6-10.4) mg/dl Phosphorus 7.7 H (2.5-4.5) mg/dL Magnesium 2.3 (1.6-2.3) mg/dL Total Bilirubin 27.9 H (0.2-1.3) mg/dL AST 53 (17-59) U/L ALT 67 (21-72) U/L Alkaline Phosphatase 231 H (38-126) U/L Total Protein 5.8 L (6.3-8.3) g/dL Albumin 2.7 L (3.5-5.0) g/dL Globulin 3.1 (2.2-3.9) gm/dL Albumin/Globulin Ratio 0.9 L (1.0-2.1) 11/15/17 11/15/17 11/14/17 Range/Units 06:32 05:55 23:49 WBC 12.5 H (4.8-10.8) K/uL RBC 3.14 L (4.40-5.90) Mil/uL Hgb 10.3 L (12.0-18.0) g/dL Hct 29.0 L (35.0-51.0) % MCV 92.5 (80.0-94.0) fL MCH 32.8 H (27.0-31.0) pg MCHC 35.5 (33.0-37.0) g/dL RDW 16.1 H (11.5-14.5) % Plt Count 145 (130-400) K/uL MPV 9.6 (7.2-11.7) fL PT (9.7-12.2) SECONDS INR APTT (21-34) SECONDS Sodium (132-148) mmol/L Potassium (3.6-5.2) mmol/L Chloride (98-107) mmol/L Carbon Dioxide (22-30) mmol/L Anion Gap (10-20) BUN (9-20) mg/dL Creatinine (0.8-1.5) mg/dL Est GFR ( Amer) Est GFR (Non-Af Amer) POC Glucose (mg/dL) 127 H 136 H (65-110) mg/dL Random Glucose (75-110) mg/dL Calcium (8.6-10.4) mg/dl Phosphorus (2.5-4.5) mg/dL Magnesium (1.6-2.3) mg/dL Total Bilirubin (0.2-1.3) mg/dL AST (17-59) U/L ALT (21-72) U/L Alkaline Phosphatase (38-126) U/L Total Protein (6.3-8.3) g/dL Albumin (3.5-5.0) g/dL Globulin (2.2-3.9) gm/dL Albumin/Globulin Ratio (1.0-2.1) Laboratory Results - last 24 hr 11/14/17 11/15/17 11/15/17 23:49 05:55 06:32 WBC 12.5 H RBC 3.14 L Hgb 10.3 L Hct 29.0 L MCV 92.5 MCH 32.8 H MCHC 35.5 RDW 16.1 H Plt Count 145 MPV 9.6 PT INR APTT Sodium Potassium Chloride Carbon Dioxide Anion Gap BUN Creatinine Est GFR ( Amer) Est GFR (Non-Af Amer) POC Glucose (mg/dL) 136 H 127 H Random Glucose Calcium Phosphorus Magnesium Total Bilirubin AST ALT Alkaline Phosphatase Total Protein Albumin Globulin Albumin/Globulin Ratio 11/15/17 11/15/17 11/15/17 06:32 06:32 12:01 WBC RBC Hgb Hct MCV MCH MCHC RDW Plt Count MPV PT 14.6 H INR 1.3 APTT 30 Sodium 142 Potassium 3.7 Chloride 103 Carbon Dioxide 24 Anion Gap 20 BUN 104 H* D Creatinine 6.0 H Est GFR ( Amer) 11 Est GFR (Non-Af Amer) 9 POC Glucose (mg/dL) 124 H Random Glucose 127 H Calcium 7.1 L Phosphorus 7.7 H Magnesium 2.3 Total Bilirubin 27.9 H AST 53 ALT 67 Alkaline Phosphatase 231 H Total Protein 5.8 L Albumin 2.7 L Globulin 3.1 Albumin/Globulin Ratio 0.9 L Critical Care Progress Note - Nutrition Nutrition: Nutrition Category Date Time Status Liquid Diet [DIET] Diets 11/14/17 Dinner Active Assessment/Plan - Assessment and Plan (Free Text) Assessment: Above patient seen and examined at bedside. Patient remains hemodynamically stable. off pressors. -tolerating HD -percutaneous cholecystostomy tube dressing to be changed by surgery/nursing -above resident note documents my clinical findings -Patient's case was discussed with Dr. Fonseca (associate of Dr. Lofton at [facility]) regarding possible transfer for higher level of care
--- NOTE | 2017-11-15 23:02 | CP.PCM.PN ---
Subjective - Date & Time of Evaluation Date of Evaluation: 11/15/17 Time of Evaluation: 05:00 - Subjective Subjective: dictated Objective - Vital Signs/Intake and Output Vital Signs (last 24 hours): Temp Pulse Resp BP Pulse Ox 96.6 F L 81 16 107/57 L 95 11/15/17 20:00 11/15/17 21:20 11/15/17 21:20 11/15/17 21:20 11/15/17 21:20 Intake and Output: 11/15/17 11/16/17 18:59 06:59 Intake Total 566.8 13.8 Output Total 1160 Balance -593.2 13.8 - Medications Medications: Current Medications Calcium Acetate (Phoslo) 1,334 mg PO TIDCC [facility] Last Admin: 11/15/17 17:00 Dose: Not Given Heparin Sodium (Porcine) (Heparin) 5,000 units SC Q8 [facility] Last Admin: 11/15/17 22:00 Dose: 5,000 units Hydrocortisone Sodium Succinate (Solu-Cortef) 50 mg IV Q8 [facility] Last Admin: 11/15/17 22:30 Dose: 50 mg Norepinephrine Bitartrate 8 mg (/ Dextrose) 258 mls @ 7.74 mls/hr IV .Q24H PRN ; Protocol; 4 MCG/MIN PRN Reason: TITRATE PER MD ORDER Last Titration: 11/13/17 00:30 Dose: 0 mcg/min, 0 mls/hr Meropenem 500 mg/ Sodium (Chloride) 100 mls @ 100 mls/hr IVPB QAM [facility] PRN Reason: Protocol Last Admin: 11/15/17 09:28 Dose: 100 mls/hr Vasopressin 40 units/ Dextrose 40 mls @ 2.4 mls/hr IV .[id number] JAQUELINE; 0.04 UNITS/ MIN PRN Reason: Protocol Last Admin: 11/15/17 21:20 Dose: 0.02 units/min, 1.2 mls/hr Ciprofloxacin (Cipro 400mg/200ml Dsw) 400 mg in 200 mls @ 133 mls/hr IVPB Q24H [facility] PRN Reason: Protocol Last Admin: 11/15/17 14:44 Dose: 133 mls/hr Insulin Aspart (Novolog) 0 unit SC Q6H [facility] PRN Reason: Protocol Last Admin: 11/15/17 18:55 Dose: Not Given Ondansetron HCl (Zofran Inj) 4 mg IVP Q6 PRN PRN Reason: Nausea/Vomiting Last Admin: 11/12/17 14:52 Dose: 4 mg Pantoprazole Sodium (Protonix Inj) 40 mg IVP DAILY [facility] Last Admin: 11/15/17 09:28 Dose: 40 mg Vitamin B Complex/Vit C/Folic Acid (Nephro-Ken) 1 tab PO 0800 [facility] Last Admin: 11/15/17 07:53 Dose: 1 tab - Labs Labs: 11/15/17 06:32 11/15/17 06:32 PT 14.6 SECONDS (9.7-12.2) H 11/15/17 06:32 INR 1.3 11/15/17 06:32 APTT 30 SECONDS (21-34) 11/15/17 06:32
[2017-11-16] MEDS: (Novolog) Insulin Aspart, Recombinant 100 u/ml 10 ml vial SC SCH ×5 (00:30→23:53)
--- NOTE | 2017-11-16 03:42 | PN ---
DATE: 11/15/2017 INFECTIOUS DISEASE FOLLOWUP NOTE SUBJECTIVE: The patient was getting dialysis done. He was in good spirits. He remains icteric but he is eating less and no nausea reported. PHYSICAL EXAMINATION VITAL SIGNS: His blood pressure was 103/68, which is slightly better than before. He was afebrile and he says that he was still waiting for the transfer. T-max was 96.6, pulse of 85, blood pressure 102/66, respirations are 16. HEENT: Head is atraumatic and normocephalic. NECK: Supple. LUNGS: Clear. HEART: S1 and S2 irregularly irregular. He has atrial fibrillation, chronic. ABDOMEN: Soft. He has the cholecystostomy tube, which was draining bile, and there was ALEN drain also. Abdomen is flabby, nontender. No guarding. No rigidity present. He is morbidly obese. EXTREMITIES: Have bilateral SCDs. White count is 12.5. He had come to this hospital with a white count of, when I saw was 21.1, hemoglobin 10.3, hematocrit 29, platelet count is 145. Chemistry shows BUN is 104 and creatinine is 6, still remains high. His bilirubin is 27.9 and alkaline phosphatase is 231. AST and ALT are 53 and 67 respectively. Body fluid grew Stenotrophomonas maltophilia, which is sensitive to Cipro, Fortaz and Bactrim. HE IS ALLERGIC TO PENICILLIN, so I have left him on Cipro and also Merrem. While he was on Merrem, his white count started to come down, so we cannot give full dose of either of these medications, so we will continue both for now, and he is waiting for a transfer for possible ERCP. We will follow. Stephania Abdi MD
[2017-11-16 06:16] LABS: HEMOGLOBIN 10.6 g/dL (12.0-18.0); MEAN CORPUSCULAR HEMOGLOBIN 33.1 pg (27.0-31.0); MEAN PLATELET VOLUME 9.5 fL (7.2-11.7); RBC 3.21 Mil/uL (4.40-5.90); WHITE BLOOD COUNT 14.6 K/uL (4.8-10.8)
[2017-11-16 06:46] LABS: ALB/GLOB RATIO 0.8 (1.0-2.1); ALBUMIN 2.7 g/dL (3.5-5.0); CALCIUM 7.4 mg/dl (8.6-10.4)
[2017-11-16] MEDS: Multivitamin Vitamin B Complex (Nephro-Vite) Tab PO SCH (08:31)
--- NOTE | 2017-11-16 09:09 | PN ---
DATE: 11/16/2017 LOCATION: ICU 10. SUBJECTIVE: This 77-year-old male seen and examined early in rounds today, appears to be awake, alert, and oriented, still have PTC drainage tube in place with less amount of drained biliary contents without reported complain of chest pain, palpitation, chills, fever, or significant shortness of breath. The patient is still on vasopressin drip to maintain his blood pressure. The entire chart is reviewed including, but not limited to some of his most recent lab and the radiology study results, current and previous medication list, current and the previous medical events. Today's lab showed white blood cells 14.6, hemoglobin 10.6, hematocrit 29.6 with normal platelet count. Potassium 3.4, BUN 65, creatinine 3.9, blood glucose level 124, calcium 7.4, phosphorus 5.4 with subsequent drop of total billirubin to 24.5. AST 72, ALT 80, alkaline phosphatase is 249, and albumin is 2.7. PHYSICAL EXAMINATION: GENERAL: A 77-year-old male. VITAL SIGNS: Afebrile with pulse of 74, respiratory rate 20 to 22 with blood pressure of 110/70. HEENT: Showed pale dry, oral mucous membrane with bilateral icteric sclerae. The patient has generalized jaundice. LUNGS: Scattered bilateral crepitation with mildly decreased air entry at bases. HEART: Positive S1 and S2. ABDOMEN: Soft with mild to moderate distention. PTC drainage is in place with mild leakage around the tube. No mass or organomegaly. No rebound tenderness of guarding. EXTREMITIES: With edematous changes of the lower extremities. No clubbing or cyanosis. NEUROLOGICAL: No reported new neurological deficit, sensory, or motor. Peripheral pulse are present bilaterally, but weak. IMPRESSION: 1. Obstructive jaundice with abnormal radiology test results including abnormal PTC suggestive highly of common bile duct lesion into the right intrahepatic ducts. 2. Abnormal liver function test secondary to above. 3. Septicemia with gram negative rods possibility of ascending cholangitis was raised. 4. Recent report gastrointestinal blood loss was hypochromic microcytic anemia. 5. Septic shock, on antibiotics. 6. Non history of chronic atrial fibrillation with systolic congestive heart failure. 7. Acute renal insufficiency reported to be on hemodialysis recently. 8. Electrolyte imbalance secondary to above. SUGGESTIONS: 1. Continue current management. 2. More than one 06:16 done to transfer the patient to the [facility] in [place], [place], still awaiting their response for more aggressive workup and treatment. However, if the patient is more stable clinically then a trail of ERCP with intubation and possible biliary stent insertion to be kept in mind only when the patient's blood pressure and his septicemia is well controlled. Further recommendation to follow. Sandeep Torre MD
--- NOTE | 2017-11-16 09:39 | CP.PCM.PN ---
Subjective - Date & Time of Evaluation Date of Evaluation: 11/16/17 Time of Evaluation: 08:45 - Subjective Subjective: Medical Attending Note: Patient seen and examined this morning. Patient reports he slept better. Patient reports he saw GI doctor, Dr Neville this morning. Patient reports he is tolerating clear liquid diet, has loose formed stools. Patient reports drains over right side of flank bother him less. denies headache, denies chest pain, denies palptiations, denies abdominal pain, denies nausea, denies vomitting, denies pain, denies pruitus. Patient continues to be on pressor. Objective - Vital Signs/Intake and Output Vital Signs (last 24 hours): Temp Pulse Resp BP Pulse Ox 98.1 F 77 13 105/72 95 11/16/17 04:00 11/16/17 06:03 11/16/17 06:03 11/16/17 06:03 11/16/17 06:03 Intake and Output: 11/16/17 11/16/17 06:59 18:59 Intake Total 22.2 Output Total 790 Balance -767.8 - Medications Medications: Current Medications Calcium Acetate (Phoslo) 1,334 mg PO TIDCC [facility] Last Admin: 11/16/17 08:30 Dose: 1,334 mg Heparin Sodium (Porcine) (Heparin) 5,000 units SC Q8 [facility] Last Admin: 11/16/17 05:55 Dose: 5,000 units Hydrocortisone Sodium Succinate (Solu-Cortef) 50 mg IV Q8 [facility] Last Admin: 11/16/17 05:54 Dose: 50 mg Norepinephrine Bitartrate 8 mg (/ Dextrose) 258 mls @ 7.74 mls/hr IV .Q24H PRN ; Protocol; 4 MCG/MIN PRN Reason: TITRATE PER MD ORDER Last Titration: 11/13/17 00:30 Dose: 0 mcg/min, 0 mls/hr Meropenem 500 mg/ Sodium (Chloride) 100 mls @ 100 mls/hr IVPB QAM [facility] PRN Reason: Protocol Last Admin: 11/15/17 09:28 Dose: 100 mls/hr Vasopressin 40 units/ Dextrose 40 mls @ 2.4 mls/hr IV .[id number] [facility]; 0.04 UNITS/ MIN PRN Reason: Protocol Last Admin: 11/15/17 21:20 Dose: 0.02 units/min, 1.2 mls/hr Ciprofloxacin (Cipro 400mg/200ml Dsw) 400 mg in 200 mls @ 133 mls/hr IVPB Q24H JAQUELINE PRN Reason: Protocol Last Admin: 11/15/17 14:44 Dose: 133 mls/hr Insulin Aspart (Novolog) 0 unit SC Q6H [facility]ELINE PRN Reason: Protocol Last Admin: 11/16/17 06:16 Dose: Not Given Ondansetron HCl (Zofran Inj) 4 mg IVP Q6 PRN PRN Reason: Nausea/Vomiting Last Admin: 11/12/17 14:52 Dose: 4 mg Pantoprazole Sodium (Protonix Inj) 40 mg IVP DAILY [facility] Last Admin: 11/15/17 09:28 Dose: 40 mg Vitamin B Complex/Vit C/Folic Acid (Nephro-Ken) 1 tab PO 0800 [facility] Last Admin: 11/16/17 08:31 Dose: 1 tab - Labs Labs: 11/16/17 06:06 11/16/17 06:07 PT 14.6 SECONDS (9.7-12.2) H 11/15/17 06:32 INR 1.3 11/15/17 06:32 APTT 30 SECONDS (21-34) 11/15/17 06:32 - Constitutional Appears: No Acute Distress, Chronically Ill, Other (jaundiced) - Head Exam Head Exam: NORMAL INSPECTION - Eye Exam Eye Exam: EOMI, Scleral icterus - ENT Exam ENT Exam: Mucous Membranes Moist - Respiratory Exam Respiratory Exam: Decreased Breath Sounds, NORMAL BREATHING PATTERN. absent: Stridor - Cardiovascular Exam Cardiovascular Exam: REGULAR RHYTHM, +S1, +S2 - GI/Abdominal Exam GI & Abdominal Exam: Distended (obese habitus), Soft, Normal Bowel Sounds. absent: Firm, Guarding, Rigid, Tenderness, Rebound Additional comments: has drains over the right side of abdomen; dressing: curtain cleaner Biliary drain filled with bilious fluid no blood - Extremities Exam Extremities Exam: Pedal Edema. absent: Tenderness Additional comments: Prevalon boots scds - Neurological Exam Neurological Exam: Alert, Awake, Oriented x3 Neuro motor strength exam: Left Upper Extremity: 5, Right Upper Extremity: 5, Left Lower Extremity: 5, Right Lower Extremity: 5 - Psychiatric Exam Psychiatric exam: Normal Affect, Normal Mood - Skin Skin Exam: Dry, Warm Assessment and Plan (1) Obstructive jaundice Status: Acute (2) Septic shock Status: Acute (3) Acute cholangitis Status: Acute (4) Jaundice Status: Acute (5) Congestive heart failure Status: Chronic (6) Acute renal failure Status: Acute (7) Atrial fibrillation Status: Acute (8) Prophylactic measure Status: Acute Attending/Attestation - Attestation I have personally seen and examined this patient.: Yes I have fully participated in the care of the patient.: Yes I have reviewed all pertinent clinical information, including history, physical exam and plan: Yes Notes (Text): Patient seen, examined at bedside. White count uptrend (note on steroids) Renal function is improving. Tolerated dialysis yesterday. Patient is on pressor is hypotensive at bedside. patient continues to be on IV abx, GI saw patient this morning; will f/u with [facility] for possible transfer. 1) Septic Shock Cholangitis Assessment/Plan * Criteria: leukocytosis, tachycardia; came transported [place] with pressor and requiring for emergent dialysis * Infectious Disease (Dr. Abdi) on board-->help appreciated * GI (Dr. Neville) on board-->help appreciated * Pending transfer to patient to [facility] in [place], [place]; awaiting response * Pending stable for possible ERCP w intubation; possible biliary stent insertion when blood pressure/septicemia * Ciprofloxacin 400mg IVPB Q24 (active since 11/14/17) * Meropenem 500mg IVPB QAM (active since 11/11/17) * Blood cultures (11/10/17): no growth after 5 days X2 * MRSA not detected * Urine culture (11/10/17): no growth * Bile (11/11/17): Stenotrophomonas Maltophilia * Bile (11/11/17; 2nd culture): no growth after 3 days * On 1 pressor * SoluCortef 50mg IV Q8H (active since 11/11/17) 2) Acute Renal Failure * Nephrology (Dr. Carolina) on board-->help appreciated * work up for adrenal adenoma later as outpt once stable * continue to uptrend and worsen, will plan for HD today as ordered (3rd session). continue to monitor for spontaneous renal recoverymaintain hemodynamics stable. avoid hypotension * Patient to have dialysis today (3rd session) * Phoslo 1334mg PO TIDCC * Nephrovite 1 tab PO daily 3) Painless Obstructive Jaundice Concern for mass * GI (Dr. Neville) on board-->help appreciated * Pending ERCP when stable * Pending transfer to [facility] * General surgery (Dr. Boudreaux) on board-->help appreciated * Follow-up with surgery residents regarding reinforcement of dressing given biliary leakage * hematology oncology (Dr. Daenne Jin) on board * suspect malignancy * causing obstructive jaundice and cholangitis * s/p cholecystostomy * will need tissue evaluation once more stable; for possible transfer to [facility] * Discussed with ICU, in regards to patient as well. * 11/11/17 PTC with biliary drain revealed: "Cholangiogram showed common hepatic mass extending into right hepatic duct". Cholecystostomy tube placement. Placement of an Internal External 10 fr biliary drain. * CT abdomen/pelvis (11/11/17): markedly distended gallbladder with calcified cholelithiasis and questionable wall thickening for which acute cholecystitis related to cystic duct or distal CBD obstruction cannot be excluded. Moderate intrahepatic biliary ductal dilatation and dilated CBD. Very limited evaluation of the pancreatic head. Choledocholithiaiss or pancreatic mass cannot be excluded. MRCP recommended. * Abdominal US (11/11/17): hepatomegaly with steatosis. Cholelithiasis with mild gallbladder wall thickening. Sonographic [place];s sign Equivocal for acute cholecystitis. intra and extrahepatic biliary ductal dilatation for which choledocholithisis cannt be excluded. * MRCP (10/31/17): re demonstration of severe intrahepatic and extrahepatic biliary dilatation with common bile duct 17mm in pora hepatitis. No gross evidence of pancreatic mass. ERCP recommended * Hepatitis panel: negative * Anti-mitochondrial AB: negative * CEA is elevated * pending transfer to [facility] for specialized care-->patient is currently on pressor 4) Coagulopathy * INR: 1.3 (previously 17.60 requiring FFP) patient was on coumadin for known atrial fibrillation history * Aspirin secondary allergic reaction 5) Atrial fibrillation * Patient is on pressor * Off anti-hypertensive * Not presently on chemical anticoagulation except for DVT dosing * Echocardiogram (10/31/17): left ventricle is normal size. normal left ventricular thickness. systolic function is mildly impaired, global hypokinesis of left ventricle, left atrium is moderately dilated, mitral regurgitation is moderate * Aspirin secondary allergic reaction 6) Congestive Heart Failure, Systolic * Cardiology (Dr. Combs) on board * Echocardiogram (10/31/17): left ventricle is normal size. normal left ventricular thickness. systolic function is mildly impaired, global hypokinesis of left ventricle, left atrium is moderately dilated, mitral regurgitation is moderate * off anti-hypertensive; currently on pressor * off anticoagulation pending ERCP when more stable * Aspirin secondary allergic reaction 7) Prophylactic measure * patient is off chemical anticoagulation presently; he has prior admission for coumadin toxicity; he is also awaiting ercp when he is more stable * protonix 40mg IV daily * Full code * Family at bedside; spoke with patient and family today * pending transfer to [facility]; patient is on pressor.
[2017-11-16] MEDS: Meropenem 500 MG in Sodium Chloride 0.9% 100 ML IVPB SCH (09:59)
[2017-11-16] MEDS: Vasopressin 40 UNITS in Dextrose 5% In Water 38 ML IV SCH (10:35)
[2017-11-16 10:40] LABS: LYMPH # 1.8 K/uL (1.0-4.3); MONO # 1.8 K/uL (0.0-0.8)
[2017-11-16] MEDS: Ciprofloxacin 400mg/200ml D5W 400 MG/200 ML BAG IVPB SCH (16:00)
--- NOTE | 2017-11-16 18:42 | CP.PCM.PN ---
Subjective - Date & Time of Evaluation Date of Evaluation: 11/16/17 Time of Evaluation: 18:41 - Subjective Subjective: Nephrology Consultation Note Assessment: critical oligoanuric MACIE likely due to ATN due to shock with ? sepsis ? bile cast nephropathy. other possible causes may include hepato-renal, recent IV contrast exposure: started HD 11/11/17 HAGMA obstructive jaundice ? possible cause as pancreatic mass/cholangicarcinoma HTN, CHF, A fib, morbd obesity moderate TR left 2 cm adrenal adenoma hyperphosphatemia Anemia s/p cholecystotomy tube Plan s/p HD yesterday no emergent need today will monitor over weekend continue to monitor for spontaneous renal recovery maintain hemodynamics stable. avoid hypotension monitor I/O daily weights and renal function with BMP continue phoslo f/u gi and ID work up for adrenal adenoma later as outpt once stable S: pt feels ok appetite fair Physical Examination: General Appearance: Comfortable, co-operative. no acute distress Vitals reviewed and noted as below Head; Atraumatic, normocephalic ENT: no ulcers no thrush. Tongue is midline/moist. Oropharynx: no rash or ulcers. EYES: Pupils are equal, round and reactive to light accommodation. Eye muscles and extraocular movement intact. Sclera is icteric. Neck; supple no lymphadenopathy, no thyromegaly or bruit Lungs: normal respiratory rate/effort. Breath sounds appears clear b/l anteriorly Heart: Normal rate. s1s2 normal. No rub or gallop. Extremities: 1+ edema. No varicose veins Neurological: Patient is alert, awake, oriented x 3 follows commands, no focal deifict. Skin: dry and warm. Normal turgor. No rash. Palpitation: Normal elasticity for age. grossly yellow Abdomen: Abdomen is soft non tender no apparent organomegaly + drain in belly Psych: normal insight. has normal affect and mood MSK: no specific joint tenderness or swelling. Digits and nails normal, no deformity : kidney not palpable. bladder not distended . access: Rt IJ sarath Objective - Vital Signs/Intake and Output Vital Signs (last 24 hours): Temp Pulse Resp BP Pulse Ox 98.1 F 75 12 107/73 96 11/16/17 04:00 11/16/17 11:00 11/16/17 11:00 11/16/17 10:48 11/16/17 11:00 Intake and Output: 11/16/17 11/16/17 06:59 18:59 Intake Total 22.2 236.0 Output Total 790 Balance -767.8 236.0 - Medications Medications: Current Medications Calcium Acetate (Phoslo) 1,334 mg PO TIDCC [facility] Last Admin: 11/16/17 17:04 Dose: 1,334 mg Heparin Sodium (Porcine) (Heparin) 5,000 units SC Q8 [facility] Last Admin: 11/16/17 17:04 Dose: 5,000 units Hydrocortisone Sodium Succinate (Solu-Cortef) 50 mg IV Q12H [facility] Norepinephrine Bitartrate 8 mg (/ Dextrose) 258 mls @ 7.74 mls/hr IV .Q24H PRN ; Protocol; 4 MCG/MIN PRN Reason: TITRATE PER MD ORDER Last Titration: 11/13/17 00:30 Dose: 0 mcg/min, 0 mls/hr Meropenem 500 mg/ Sodium (Chloride) 100 mls @ 100 mls/hr IVPB QAM [facility]ELINE PRN Reason: Protocol Last Admin: 11/16/17 09:59 Dose: 100 mls/hr Vasopressin 40 units/ Dextrose 40 mls @ 2.4 mls/hr IV .[id number] JAQUELINE; 0.04 UNITS/ MIN PRN Reason: Protocol Last Admin: 11/16/17 10:35 Dose: Not Given Ciprofloxacin (Cipro 400mg/200ml Dsw) 400 mg in 200 mls @ 133 mls/hr IVPB Q24H JAQUELINE PRN Reason: Protocol Last Admin: 11/16/17 16:00 Dose: 133 mls/hr Insulin Aspart (Novolog) 0 unit SC Q6H [facility]QUELINE PRN Reason: Protocol Last Admin: 11/16/17 17:03 Dose: Not Given Ondansetron HCl (Zofran Inj) 4 mg IVP Q6 PRN PRN Reason: Nausea/Vomiting Last Admin: 11/12/17 14:52 Dose: 4 mg Pantoprazole Sodium (Protonix Inj) 40 mg IVP DAILY [facility] Last Admin: 11/16/17 09:59 Dose: 40 mg Vitamin B Complex/Vit C/Folic Acid (Nephro-Ken) 1 tab PO 0800 [facility] Last Admin: 11/16/17 08:31 Dose: 1 tab - Labs Labs: 11/16/17 06:06 11/16/17 06:07 PT 14.6 SECONDS (9.7-12.2) H 11/15/17 06:32 INR 1.3 11/15/17 06:32 APTT 30 SECONDS (21-34) 11/15/17 06:32
--- NOTE | 2017-11-16 22:25 | CP.CCUPN ---
CCU Subjective - Physician Review Events Since Last Encounter (Free Text): 11/16/17 22:25 Patient overall condition is stable. On antibiotic. Patient has a right sided biliary drain noted. Receiving dialysis. Continue the current antibiotic. Awaiting for endoscopy CCU Objective - Vital Signs / Intake & Output Vital Signs (Last 4 hours): Vital Signs Temp Pulse Resp BP Pulse Ox 11/16/17 21:00 78 15 96 11/16/17 20:48 73 18 103/70 95 11/16/17 20:00 98.7 F 72 16 88/58 L 95 11/16/17 19:49 77 13 88/58 L 95 11/16/17 19:00 77 13 95 11/16/17 18:48 78 12 82/46 L 95 Intake and Output (Last 8hrs): Intake & Output 11/16/17 11/16/17 11/16/17 06:59 14:59 22:59 Intake Total 9.6 339.6 307.2 Output Total 790 1160 Balance -780.4 339.6 -852.8 Weight 298 lb 0.7 oz Intake: Intake, IV Amount 9.6 109.6 207.2 Right Proximal Port 9.6 9.6 7.2 Internal Jugular trialysis cath 100 200 Oral 230 100 Output: Drainage 440 460 R lower cholecystostomy 40 40 Right upper biliary rain 400 420 Urine 350 700 Urine, Voided 350 700 Other: # Voids Urine, Voided 1 # Bowel Movements 0 1 - Physical Exam Head: Positive for: Atraumatic, Normocephalic Extroacular Muscles: Positive for: EOMI Conjunctiva: Positive for: Icteric Mouth: Positive for: Moist Mucous Membranes Respiratory/Chest: Positive for: Clear to Auscultation. Negative for: Respiratory Distress, Accessory Muscle Use, Wheezes, Rales, Rhonchi Cardiovascular: Positive for: Regular Rate and Rhythm, Normal S1, S2 Abdomen: Positive for: Normal Bowel Sounds. Negative for: Tenderness, Distention, Peritoneal Signs, Guarding, Mass/Organomegaly Lower Extremity: Positive for: Edema (2+ B/L ). Negative for: CALF TENDERNESS Neurological: Positive for: GCS=15, Speech Normal, Memory Normal Skin: Positive for: Other (Jaundinced) Psychiatric: Positive for: Alert, Oriented x 3, Normal Insight, Normal Concentration - Medications Active Medications: Active Medications Generic Name Dose Route Start Last Admin Trade Name Freq PRN Reason Stop Dose Admin Calcium Acetate 1,334 mg 11/11/17 12:00 11/16/17 17:04 Phoslo PO 1,334 mg TIDCC JAQUELINE Administration Heparin Sodium (Porcine) 5,000 units 11/14/17 17:45 11/16/17 17:04 Heparin SC 5,000 units Q8 JAQUELINE Administration Hydrocortisone Sodium Succinate 50 mg 11/16/17 22:00 Solu-Cortef IV Q12H JAQUELINE Norepinephrine Bitartrate 8 mg 258 mls @ 7.74 mls/hr 11/10/17 16:04 11/13/17 00:30 / Dextrose IV 0 mcg/min .Q24H PRN 0 mls/hr TITRATE PER MD ORDER Titration Protocol 4 MCG/MIN Meropenem 500 mg/ Sodium 100 mls @ 100 mls/hr 11/11/17 10:00 11/16/17 09:59 Chloride IVPB 100 mls/hr QAM JAQUELINE Administration Protocol Vasopressin 40 units/ Dextrose 40 mls @ 2.4 mls/hr 11/10/17 21:30 11/16/17 10 :35 IV Not Given .[id number] JAQUELINE Protocol 0.04 UNITS/MIN Ciprofloxacin 400 mg in 200 mls @ 133 mls/hr 11/14/17 15:30 11/16/17 16:00 Cipro 400mg/200ml Dsw IVPB 133 mls/hr Q24H JAQUELINE Administration Protocol Insulin Aspart 0 unit 11/11/17 00:00 11/16/17 17:03 Novolog SC Not Given Q6H ON LICENSE OF [facility] Protocol Ondansetron HCl 4 mg 11/11/17 16:49 11/12/17 14:52 Zofran Inj IVP 4 mg Q6 PRN Administration Nausea/Vomiting Pantoprazole Sodium 40 mg 11/11/17 10:00 11/16/17 09:59 Protonix Inj IVP 40 mg DAILY JAQUELINE Administration Vitamin B Complex/Vit C/Folic Acid 1 tab 11/12/17 08:00 11/16/17 08:31 Nephro-Ken PO 1 tab 0800 JAQUELINE Administration - Patient Studies Lab Studies: Lab Studies 11/16/17 11/16/17 11/16/17 Range/Units 17:27 12:16 06:15 WBC (4.8-10.8) K/uL RBC (4.40-5.90) Mil/uL Hgb (12.0-18.0) g/dL Hct (35.0-51.0) % MCV (80.0-94.0) fL MCH (27.0-31.0) pg MCHC (33.0-37.0) g/dL RDW (11.5-14.5) % Plt Count (130-400) K/uL MPV (7.2-11.7) fL Neut % (Auto) (50.0-75.0) % Lymph % (Auto) (20.0-40.0) % Keith % (Auto) (0.0-10.0) % Eos % (Auto) (0.0-4.0) % Baso % (Auto) (0.0-2.0) % Neut # (Auto) (1.8-7.0) K/uL Lymph # (Auto) (1.0-4.3) K/uL Keith # (Auto) (0.0-0.8) K/uL Eos # (Auto) (0.0-0.7) K/uL Baso # (Auto) (0.0-0.2) K/uL Sodium (132-148) mmol/L Potassium (3.6-5.2) mmol/L Chloride (98-107) mmol/L Carbon Dioxide (22-30) mmol/L Anion Gap (10-20) BUN (9-20) mg/dL Creatinine (0.8-1.5) mg/dL Est GFR ( Amer) Est GFR (Non-Af Amer) POC Glucose (mg/dL) 142 H 124 H 124 H (65-110) mg/dL Random Glucose (75-110) mg/dL Calcium (8.6-10.4) mg/dl Phosphorus (2.5-4.5) mg/dL Magnesium (1.6-2.3) mg/dL Total Bilirubin (0.2-1.3) mg/dL AST (17-59) U/L ALT (21-72) U/L Alkaline Phosphatase (38-126) U/L Total Protein (6.3-8.3) g/dL Albumin (3.5-5.0) g/dL Globulin (2.2-3.9) gm/dL Albumin/Globulin Ratio (1.0-2.1) Actin IgG Antibody (<20) U 11/16/17 11/16/17 11/15/17 Range/Units 06:07 06:06 23:34 WBC 14.6 H (4.8-10.8) K/uL RBC 3.21 L (4.40-5.90) Mil/uL Hgb 10.6 L (12.0-18.0) g/dL Hct 29.6 L (35.0-51.0) % MCV 92.0 (80.0-94.0) fL MCH 33.1 H (27.0-31.0) pg MCHC 36.0 (33.0-37.0) g/dL RDW 16.0 H (11.5-14.5) % Plt Count 160 (130-400) K/uL MPV 9.5 (7.2-11.7) fL Neut % (Auto) 76.0 H (50.0-75.0) % Lymph % (Auto) 12.0 L (20.0-40.0) % Keith % (Auto) 12.0 H (0.0-10.0) % Eos % (Auto) 0.0 (0.0-4.0) % Baso % (Auto) 0.0 (0.0-2.0) % Neut # (Auto) 11.0 H (1.8-7.0) K/uL Lymph # (Auto) 1.8 (1.0-4.3) K/uL Keith # (Auto) 1.8 H (0.0-0.8) K/uL Eos # (Auto) 0.0 (0.0-0.7) K/uL Baso # (Auto) 0.0 (0.0-0.2) K/uL Sodium 144 (132-148) mmol/L Potassium 3.4 L (3.6-5.2) mmol/L Chloride 104 (98-107) mmol/L Carbon Dioxide 26 (22-30) mmol/L Anion Gap 18 (10-20) BUN 65 H (9-20) mg/dL Creatinine 3.9 H (0.8-1.5) mg/dL Est GFR ( Amer) 18 Est GFR (Non-Af Amer) 15 POC Glucose (mg/dL) 133 H (65-110) mg/dL Random Glucose 128 H (75-110) mg/dL Calcium 7.4 L (8.6-10.4) mg/dl Phosphorus 5.4 H (2.5-4.5) mg/dL Magnesium 2.1 (1.6-2.3) mg/dL Total Bilirubin 24.5 H (0.2-1.3) mg/dL AST 72 H D (17-59) U/L ALT 80 H (21-72) U/L Alkaline Phosphatase 249 H (38-126) U/L Total Protein 5.9 L (6.3-8.3) g/dL Albumin 2.7 L (3.5-5.0) g/dL Globulin 3.2 (2.2-3.9) gm/dL Albumin/Globulin Ratio 0.8 L (1.0-2.1) Actin IgG Antibody (<20) U 11/15/17 11/12/17 Range/Units 17:54 15:50 WBC (4.8-10.8) K/uL RBC (4.40-5.90) Mil/uL Hgb (12.0-18.0) g/dL Hct (35.0-51.0) % MCV (80.0-94.0) fL MCH (27.0-31.0) pg MCHC (33.0-37.0) g/dL RDW (11.5-14.5) % Plt Count (130-400) K/uL MPV (7.2-11.7) fL Neut % (Auto) (50.0-75.0) % Lymph % (Auto) (20.0-40.0) % Keith % (Auto) (0.0-10.0) % Eos % (Auto) (0.0-4.0) % Baso % (Auto) (0.0-2.0) % Neut # (Auto) (1.8-7.0) K/uL Lymph # (Auto) (1.0-4.3) K/uL Keith # (Auto) (0.0-0.8) K/uL Eos # (Auto) (0.0-0.7) K/uL Baso # (Auto) (0.0-0.2) K/uL Sodium (132-148) mmol/L Potassium (3.6-5.2) mmol/L Chloride (98-107) mmol/L Carbon Dioxide (22-30) mmol/L Anion Gap (10-20) BUN (9-20) mg/dL Creatinine (0.8-1.5) mg/dL Est GFR ( Amer) Est GFR (Non-Af Amer) POC Glucose (mg/dL) 123 H (65-110) mg/dL Random Glucose (75-110) mg/dL Calcium (8.6-10.4) mg/dl Phosphorus (2.5-4.5) mg/dL Magnesium (1.6-2.3) mg/dL Total Bilirubin (0.2-1.3) mg/dL AST (17-59) U/L ALT (21-72) U/L Alkaline Phosphatase (38-126) U/L Total Protein (6.3-8.3) g/dL Albumin (3.5-5.0) g/dL Globulin (2.2-3.9) gm/dL Albumin/Globulin Ratio (1.0-2.1) Actin IgG Antibody <20 (<20) U Laboratory Results - last 24 hr 11/12/17 11/15/17 11/15/17 15:50 17:54 23:34 WBC RBC Hgb Hct MCV MCH MCHC RDW Plt Count MPV Neut % (Auto) Lymph % (Auto) Keith % (Auto) Eos % (Auto) Baso % (Auto) Neut # (Auto) Lymph # (Auto) Keith # (Auto) Eos # (Auto) Baso # (Auto) Sodium Potassium Chloride Carbon Dioxide Anion Gap BUN Creatinine Est GFR ( Amer) Est GFR (Non-Af Amer) POC Glucose (mg/dL) 123 H 133 H Random Glucose Calcium Phosphorus Magnesium Total Bilirubin AST ALT Alkaline Phosphatase Total Protein Albumin Globulin Albumin/Globulin Ratio Actin IgG Antibody <20 11/16/17 11/16/17 11/16/17 06:06 06:07 06:15 WBC 14.6 H RBC 3.21 L Hgb 10.6 L Hct 29.6 L MCV 92.0 MCH 33.1 H MCHC 36.0 RDW 16.0 H Plt Count 160 MPV 9.5 Neut % (Auto) 76.0 H Lymph % (Auto) 12.0 L Keith % (Auto) 12.0 H Eos % (Auto) 0.0 Baso % (Auto) 0.0 Neut # (Auto) 11.0 H Lymph # (Auto) 1.8 Keith # (Auto) 1.8 H Eos # (Auto) 0.0 Baso # (Auto) 0.0 Sodium 144 Potassium 3.4 L Chloride 104 Carbon Dioxide 26 Anion Gap 18 BUN 65 H Creatinine 3.9 H Est GFR ( Amer) 18 Est GFR (Non-Af Amer) 15 POC Glucose (mg/dL) 124 H Random Glucose 128 H Calcium 7.4 L Phosphorus 5.4 H Magnesium 2.1 Total Bilirubin 24.5 H AST 72 H D ALT 80 H Alkaline Phosphatase 249 H Total Protein 5.9 L Albumin 2.7 L Globulin 3.2 Albumin/Globulin Ratio 0.8 L Actin IgG Antibody 11/16/17 11/16/17 12:16 17:27 WBC RBC Hgb Hct MCV MCH MCHC RDW Plt Count MPV Neut % (Auto) Lymph % (Auto) Keith % (Auto) Eos % (Auto) Baso % (Auto) Neut # (Auto) Lymph # (Auto) Keith # (Auto) Eos # (Auto) Baso # (Auto) Sodium Potassium Chloride Carbon Dioxide Anion Gap BUN Creatinine Est GFR ( Amer) Est GFR (Non-Af Amer) POC Glucose (mg/dL) 124 H 142 H Random Glucose Calcium Phosphorus Magnesium Total Bilirubin AST ALT Alkaline Phosphatase Total Protein Albumin Globulin Albumin/Globulin Ratio Actin IgG Antibody Fingerstick Blood Sugar Results: 124 Critical Care Progress Note - Nutrition Nutrition: Nutrition Category Date Time Status Liquid Diet [DIET] Diets 11/14/17 Dinner Active
[2017-11-17] MEDS: Vasopressin 40 UNITS in Dextrose 5% In Water 38 ML IV SCH ×3 (01:52→20:37)
[2017-11-17 06:44] LABS: HEMOGLOBIN 10.4 g/dL (12.0-18.0); MEAN CELL VOLUME 92.4 fL (80.0-94.0); MEAN CORPUSCULAR HEMOGLOBIN 32.7 pg (27.0-31.0); MEAN CORPUSCULAR HGB CONC 35.4 g/dL (33.0-37.0); MEAN PLATELET VOLUME 9.6 fL (7.2-11.7); RBC 3.17 Mil/uL (4.40-5.90); RED CELL DISTRIBUTION WIDTH 16.3 % (11.5-14.5); WHITE BLOOD COUNT 19.2 K/uL (4.8-10.8)
[2017-11-17] MEDS: (Novolog) Insulin Aspart, Recombinant 100 u/ml 10 ml vial SC SCH ×4 (06:46→22:00)
[2017-11-17 06:56] LABS: CALCIUM 7.4 mg/dl (8.6-10.4)
[2017-11-17 07:01] LABS: ALB/GLOB RATIO 0.9 (1.0-2.1); ALBUMIN 2.7 g/dL (3.5-5.0)
[2017-11-17] MEDS: HYDROmorphone 0.5 mg/0.5 ml ISec IVP PRN ×2 (08:26→15:30)
[2017-11-17] MEDS: Multivitamin Vitamin B Complex (Nephro-Vite) Tab PO SCH (08:26)
[2017-11-17] MEDS ORDERED: Phytonadione 10 mg/ml Inj (Adult) SC ONE (08:45)
[2017-11-17] MEDS: Meropenem 500 MG in Sodium Chloride 0.9% 100 ML IVPB SCH (09:44)
--- NOTE | 2017-11-17 13:15 | PN ---
DATE: 11/17/2017 LOCATION: ICU 18. SUBJECTIVE: A 77-year-old male seen earlier in rounds with ICU staff complaining them in the office severe pain at the right aspect of the lower extremities, right thigh, wants to be out of bed despite still low blood pressure. He has multiple telephone call placed to the [place], [place] to transfer the patient, they still have a concerning about his low blood pressure so far. Awaiting the patient to be transferred out of the intensive care unit 01:35. The patient had intermittent period of complain of nausea, dyspepsia, but no vomiting. His last bowel movement last night without any reported active bleeding. No chest pain or palpitation or significant shortness of breath, but with itching and generalized jaundice. Most recent lab result done today showed leukocytosis of 19.2, hemoglobin 10.4, and hematocrit 29.3 with normal platelet count. Potassium 3.3, BUN 76, creatinine 4.1, calcium 7.4, phosphorus 5.8, total protein 23.1, AST 84, ALT 88. Alkaline phosphatase 231 with low albumin 2.7. PHYSICAL EXAMINATION: GENERAL: A 77-year-old male appeared to be awake, alert, oriented, complaining of right lower extremity severe pain not responding to morphine infection, afebrile with pulse of 80, respiratory rate 18 to 20, blood pressure of 98/70. HEENT: Showed mildly pale, dry, oral mucosal membrane, bilateral icteric sclerae with generalized jaundice. LUNGS: Few scattered mild crepitation. Decreased air entry at bases. HEART: S1 and S2. ABDOMEN: Obese with slight generalized tenderness. Nontender so far. Bowel sounds are hypoactive. PTC drainage is in placed with bile contents cover to clean the drainage. EXTREMITIES: Lower extremity edematous changes. No clubbing or cyanosis. NEUROLOGIC: No reported new neurological deficit. No new focal deficits. The patient is status post hemodialysis due to his acute renal failure. IMPRESSION: 1. Obstructive jaundice with status post PTC with subsequent thrombosis total bilirubin, but still was elevated liver function test. As per radiology reading, there is a possible obstructive lesion in the common bile duct into the right intrahepatic duct raising the question of possible cholangiocarcinoma with evidence of cholelithiasis with evidence of intra and extra biliary duct dilation. 2. Septic shock with possible ascending cholangitis. 3. Hypertension secondary to above. 4. Anemia secondary to above. 5. Recently reported gastrointestinal blood loss. 6. Known history of chronic atrial fibrillation with systolic congestive heart failure. 7. Acute renal failure on hemodialysis. 8. Electrolyte imbalance secondary to above. SUGGESTION: 1. Continue current management. 2. If there is no response got it from the [facility], we will schedule the patient for potential ERCP and discuss with the family as well as all the consultants on the case, if the patient is stable clinically. Further recommendation to follow. Sandeep Torre MD
--- NOTE | 2017-11-17 14:33 | CP.PCM.PN ---
Subjective - Date & Time of Evaluation Date of Evaluation: 11/17/17 Time of Evaluation: 08:15 - Subjective Subjective: Pt is awake NAD receiving hemodialysis On minimum dose of pressors communicating somewhat intelligently Objective - Vital Signs/Intake and Output Vital Signs (last 24 hours): Temp Pulse Resp BP Pulse Ox 97.6 F 84 10 L 98/61 L 94 L 11/17/17 08:00 11/17/17 09:00 11/17/17 09:00 11/17/17 08:49 11/17/17 09:00 Intake and Output: 11/17/17 11/17/17 06:59 18:59 Intake Total 154.4 6.0 Output Total 1610 500 Balance -1455.6 -494.0 - Medications Medications: Current Medications Calcium Acetate (Phoslo) 1,334 mg PO TIDCC [facility] Last Admin: 11/17/17 12:50 Dose: Not Given Heparin Sodium (Porcine) (Heparin) 5,000 units SC Q8 [facility] Last Admin: 11/17/17 14:01 Dose: 5,000 units Hydrocortisone Sodium Succinate (Solu-Cortef) 50 mg IV Q12H [facility] Last Admin: 11/17/17 09:43 Dose: 50 mg Hydromorphone HCl (Dilaudid) 0.5 mg IVP Q6H PRN PRN Reason: Pain, severe (8-10) Last Admin: 11/17/17 08:26 Dose: 0.5 mg Norepinephrine Bitartrate 8 mg (/ Dextrose) 258 mls @ 7.74 mls/hr IV .Q24H PRN ; Protocol; 4 MCG/MIN PRN Reason: TITRATE PER MD ORDER Last Titration: 11/13/17 00:30 Dose: 0 mcg/min, 0 mls/hr Meropenem 500 mg/ Sodium (Chloride) 100 mls @ 100 mls/hr IVPB QAM [facility] PRN Reason: Protocol Last Admin: 11/17/17 09:44 Dose: 100 mls/hr Vasopressin 40 units/ Dextrose 40 mls @ 2.4 mls/hr IV .[id number] [facility]; 0.04 UNITS/ MIN PRN Reason: Protocol Last Admin: 11/17/17 03:30 Dose: Not Given Ciprofloxacin (Cipro 400mg/200ml Dsw) 400 mg in 200 mls @ 133 mls/hr IVPB Q24H [facility] PRN Reason: Protocol Last Admin: 11/16/17 16:00 Dose: 133 mls/hr Insulin Aspart (Novolog) 0 unit SC Q6H [facility] PRN Reason: Protocol Last Admin: 11/17/17 12:51 Dose: Not Given Ondansetron HCl (Zofran Inj) 4 mg IVP Q6 PRN PRN Reason: Nausea/Vomiting Last Admin: 11/17/17 06:00 Dose: 4 mg Pantoprazole Sodium (Protonix Inj) 40 mg IVP DAILY [facility] Last Admin: 11/17/17 09:43 Dose: 40 mg Vitamin B Complex/Vit C/Folic Acid (Nephro-Ken) 1 tab PO 0800 [facility] Last Admin: 11/17/17 08:26 Dose: 1 tab - Labs Labs: 11/17/17 06:41 11/17/17 06:41 PT 14.6 SECONDS (9.7-12.2) H 11/15/17 06:32 INR 1.3 11/15/17 06:32 APTT 30 SECONDS (21-34) 11/15/17 06:32 - Constitutional Appears: Non-toxic - Head Exam Head Exam: NORMAL INSPECTION - Eye Exam Eye Exam: absent: Scleral icterus - ENT Exam ENT Exam: Mucous Membranes Moist - Neck Exam Neck Exam: Full ROM - Respiratory Exam Respiratory Exam: Clear to Ausculation Bilateral, NORMAL BREATHING PATTERN - Cardiovascular Exam Cardiovascular Exam: REGULAR RHYTHM - GI/Abdominal Exam GI & Abdominal Exam: Soft. absent: Normal Bowel Sounds - Extremities Exam Extremities Exam: absent: Pedal Edema - Neurological Exam Neurological Exam: Alert Assessment and Plan - Assessment and Plan (Free Text) Assessment: Hypotension 2ndary to sepsis Acute renal failure Afib CHF, resolving Plan: Cont present meds
--- NOTE | 2017-11-17 14:49 | CP.PCM.PN ---
Subjective - Date & Time of Evaluation Date of Evaluation: 11/12/17 Time of Evaluation: 08:00 - Subjective Subjective: hypotensive pressor dependent icteric 2ndary to obstructive jaundice Objective - Vital Signs/Intake and Output Vital Signs (last 24 hours): Temp Pulse Resp BP Pulse Ox 97.6 F 84 10 L 98/61 L 94 L 11/17/17 08:00 11/17/17 09:00 11/17/17 09:00 11/17/17 08:49 11/17/17 09:00 Intake and Output: 11/17/17 11/17/17 06:59 18:59 Intake Total 154.4 6.0 Output Total 1610 500 Balance -1455.6 -494.0 - Medications Medications: Current Medications Calcium Acetate (Phoslo) 1,334 mg PO TIDCC [facility] Last Admin: 11/17/17 12:50 Dose: Not Given Heparin Sodium (Porcine) (Heparin) 5,000 units SC Q8 [facility] Last Admin: 11/17/17 14:01 Dose: 5,000 units Hydrocortisone Sodium Succinate (Solu-Cortef) 50 mg IV Q12H [facility] Last Admin: 11/17/17 09:43 Dose: 50 mg Hydromorphone HCl (Dilaudid) 0.5 mg IVP Q6H PRN PRN Reason: Pain, severe (8-10) Last Admin: 11/17/17 08:26 Dose: 0.5 mg Norepinephrine Bitartrate 8 mg (/ Dextrose) 258 mls @ 7.74 mls/hr IV .Q24H PRN ; Protocol; 4 MCG/MIN PRN Reason: TITRATE PER MD ORDER Last Titration: 11/13/17 00:30 Dose: 0 mcg/min, 0 mls/hr Meropenem 500 mg/ Sodium (Chloride) 100 mls @ 100 mls/hr IVPB QAM [facility] PRN Reason: Protocol Last Admin: 11/17/17 09:44 Dose: 100 mls/hr Vasopressin 40 units/ Dextrose 40 mls @ 2.4 mls/hr IV .[id number] [facility]QUELINE; 0.04 UNITS/ MIN PRN Reason: Protocol Last Admin: 11/17/17 03:30 Dose: Not Given Ciprofloxacin (Cipro 400mg/200ml Dsw) 400 mg in 200 mls @ 133 mls/hr IVPB Q24H [facility] PRN Reason: Protocol Last Admin: 11/16/17 16:00 Dose: 133 mls/hr Insulin Aspart (Novolog) 0 unit SC Q6H [facility] PRN Reason: Protocol Last Admin: 11/17/17 12:51 Dose: Not Given Ondansetron HCl (Zofran Inj) 4 mg IVP Q6 PRN PRN Reason: Nausea/Vomiting Last Admin: 11/17/17 06:00 Dose: 4 mg Pantoprazole Sodium (Protonix Inj) 40 mg IVP DAILY [facility] Last Admin: 11/17/17 09:43 Dose: 40 mg Vitamin B Complex/Vit C/Folic Acid (Nephro-Ken) 1 tab PO 0800 [facility] Last Admin: 11/17/17 08:26 Dose: 1 tab - Labs Labs: 11/17/17 06:41 11/17/17 06:41 PT 14.6 SECONDS (9.7-12.2) H 11/15/17 06:32 INR 1.3 11/15/17 06:32 APTT 30 SECONDS (21-34) 11/15/17 06:32 - Constitutional Appears: Chronically Ill - Head Exam Head Exam: NORMAL INSPECTION - Eye Exam Eye Exam: Scleral icterus - Neck Exam Neck Exam: Full ROM - Respiratory Exam Respiratory Exam: Clear to Ausculation Bilateral - Cardiovascular Exam Cardiovascular Exam: Irregular Rhythm - GI/Abdominal Exam GI & Abdominal Exam: Soft. absent: Normal Bowel Sounds - Extremities Exam Extremities Exam: absent: Calf Tenderness - Neurological Exam Neurological Exam: Awake Assessment and Plan - Assessment and Plan (Free Text) Assessment: Septic shock Obstructive jaundice Acute renal failure AFIb Plan: Cont antibiotic Cont hemodialysis Cont pressors
--- NOTE | 2017-11-17 15:02 | CP.PCM.PN ---
Subjective - Date & Time of Evaluation Date of Evaluation: 11/13/17 Time of Evaluation: 08:10 - Subjective Subjective: improving clinically remains pressor dependent verbally responsive still icteric WBC declining +anemic Objective - Vital Signs/Intake and Output Vital Signs (last 24 hours): Temp Pulse Resp BP Pulse Ox 97.4 F L 83 10 L 110/74 94 L 11/17/17 12:00 11/17/17 14:30 11/17/17 14:30 11/17/17 14:02 11/17/17 14:30 Intake and Output: 11/17/17 11/17/17 06:59 18:59 Intake Total 154.4 239.6 Output Total 1610 500 Balance -1455.6 -260.4 - Medications Medications: Current Medications Calcium Acetate (Phoslo) 1,334 mg PO TIDCC [facility] Last Admin: 11/17/17 12:50 Dose: Not Given Heparin Sodium (Porcine) (Heparin) 5,000 units SC Q8 [facility] Last Admin: 11/17/17 14:01 Dose: 5,000 units Hydrocortisone Sodium Succinate (Solu-Cortef) 50 mg IV Q12H [facility] Last Admin: 11/17/17 09:43 Dose: 50 mg Hydromorphone HCl (Dilaudid) 0.5 mg IVP Q6H PRN PRN Reason: Pain, severe (8-10) Last Admin: 11/17/17 08:26 Dose: 0.5 mg Norepinephrine Bitartrate 8 mg (/ Dextrose) 258 mls @ 7.74 mls/hr IV .Q24H PRN ; Protocol; 4 MCG/MIN PRN Reason: TITRATE PER MD ORDER Last Titration: 11/13/17 00:30 Dose: 0 mcg/min, 0 mls/hr Meropenem 500 mg/ Sodium (Chloride) 100 mls @ 100 mls/hr IVPB QAM [facility] PRN Reason: Protocol Last Admin: 11/17/17 09:44 Dose: 100 mls/hr Vasopressin 40 units/ Dextrose 40 mls @ 2.4 mls/hr IV .[id number] [facility]; 0.04 UNITS/ MIN PRN Reason: Protocol Last Admin: 11/17/17 03:30 Dose: Not Given Ciprofloxacin (Cipro 400mg/200ml Dsw) 400 mg in 200 mls @ 133 mls/hr IVPB Q24H [facility] PRN Reason: Protocol Last Admin: 11/16/17 16:00 Dose: 133 mls/hr Insulin Aspart (Novolog) 0 unit SC Q6H [facility] PRN Reason: Protocol Last Admin: 11/17/17 12:51 Dose: Not Given Ondansetron HCl (Zofran Inj) 4 mg IVP Q6 PRN PRN Reason: Nausea/Vomiting Last Admin: 11/17/17 06:00 Dose: 4 mg Pantoprazole Sodium (Protonix Inj) 40 mg IVP DAILY [facility] Last Admin: 11/17/17 09:43 Dose: 40 mg Vitamin B Complex/Vit C/Folic Acid (Nephro-Ken) 1 tab PO 0800 [facility] Last Admin: 11/17/17 08:26 Dose: 1 tab - Labs Labs: 11/17/17 06:41 11/17/17 06:41 PT 14.6 SECONDS (9.7-12.2) H 11/15/17 06:32 INR 1.3 11/15/17 06:32 APTT 30 SECONDS (21-34) 11/15/17 06:32 - Constitutional Appears: Non-toxic - Head Exam Head Exam: NORMAL INSPECTION - Eye Exam Eye Exam: Scleral icterus - Neck Exam Neck Exam: Full ROM - Respiratory Exam Respiratory Exam: Decreased Breath Sounds - Cardiovascular Exam Cardiovascular Exam: REGULAR RHYTHM - GI/Abdominal Exam GI & Abdominal Exam: Soft - Extremities Exam Extremities Exam: Pedal Edema. absent: Calf Tenderness - Neurological Exam Neurological Exam: Awake Assessment and Plan - Assessment and Plan (Free Text) Assessment: Septic shock Obstructive jaundice Acute renal failure Anemia Plan: Cont pressor Cont antibiotic
--- NOTE | 2017-11-17 15:13 | CP.PCM.PN ---
Subjective - Date & Time of Evaluation Date of Evaluation: 11/17/17 Time of Evaluation: 15:09 - Subjective Subjective: seen and examined by me. patient was lying on bed comfortable. He wants to have dilaudid . Patient rested and had nap after Dilaudid for pain this afternoon He is on pressor/vasopressin Has redness of left lower abd wall and weeping skin right biliary site bloody leak no fever d/w RN Objective - Vital Signs/Intake and Output Vital Signs (last 24 hours): Temp Pulse Resp BP Pulse Ox 97.4 F L 83 10 L 110/74 94 L 11/17/17 12:00 11/17/17 14:30 11/17/17 14:30 11/17/17 14:02 11/17/17 14:30 Intake and Output: 11/17/17 11/17/17 06:59 18:59 Intake Total 154.4 239.6 Output Total 1610 500 Balance -1455.6 -260.4 - Medications Medications: Current Medications Calcium Acetate (Phoslo) 1,334 mg PO TIDCC [facility] Last Admin: 11/17/17 12:50 Dose: Not Given Heparin Sodium (Porcine) (Heparin) 5,000 units SC Q8 [facility] Last Admin: 11/17/17 14:01 Dose: 5,000 units Hydrocortisone Sodium Succinate (Solu-Cortef) 50 mg IV Q12H [facility] Last Admin: 11/17/17 09:43 Dose: 50 mg Hydromorphone HCl (Dilaudid) 0.5 mg IVP Q6H PRN PRN Reason: Pain, severe (8-10) Last Admin: 11/17/17 08:26 Dose: 0.5 mg Norepinephrine Bitartrate 8 mg (/ Dextrose) 258 mls @ 7.74 mls/hr IV .Q24H PRN ; Protocol; 4 MCG/MIN PRN Reason: TITRATE PER MD ORDER Last Titration: 11/13/17 00:30 Dose: 0 mcg/min, 0 mls/hr Meropenem 500 mg/ Sodium (Chloride) 100 mls @ 100 mls/hr IVPB QAM [facility] PRN Reason: Protocol Last Admin: 11/17/17 09:44 Dose: 100 mls/hr Vasopressin 40 units/ Dextrose 40 mls @ 2.4 mls/hr IV .[id number] [facility]; 0.04 UNITS/ MIN PRN Reason: Protocol Last Admin: 11/17/17 03:30 Dose: Not Given Ciprofloxacin (Cipro 400mg/200ml Dsw) 400 mg in 200 mls @ 133 mls/hr IVPB Q24H [facility] PRN Reason: Protocol Last Admin: 11/16/17 16:00 Dose: 133 mls/hr Insulin Aspart (Novolog) 0 unit SC Q6H [facility] PRN Reason: Protocol Last Admin: 11/17/17 12:51 Dose: Not Given Ondansetron HCl (Zofran Inj) 4 mg IVP Q6 PRN PRN Reason: Nausea/Vomiting Last Admin: 11/17/17 06:00 Dose: 4 mg Pantoprazole Sodium (Protonix Inj) 40 mg IVP DAILY [facility] Last Admin: 11/17/17 09:43 Dose: 40 mg Vitamin B Complex/Vit C/Folic Acid (Nephro-Ken) 1 tab PO 0800 [facility] Last Admin: 11/17/17 08:26 Dose: 1 tab - Labs Labs: 11/17/17 06:41 11/17/17 06:41 PT 14.6 SECONDS (9.7-12.2) H 11/15/17 06:32 INR 1.3 11/15/17 06:32 APTT 30 SECONDS (21-34) 11/15/17 06:32 - Constitutional Appears: No Acute Distress, Chronically Ill - Eye Exam Eye Exam: Scleral icterus - ENT Exam ENT Exam: Mucous Membranes Moist - Neck Exam Neck Exam: Full ROM - Respiratory Exam Respiratory Exam: Clear to Ausculation Bilateral, NORMAL BREATHING PATTERN - Cardiovascular Exam Cardiovascular Exam: REGULAR RHYTHM - GI/Abdominal Exam GI & Abdominal Exam: Distended (obese,nontender), Soft (cholecystomy tube and biliary drain draining biliary fluid,bloody leak noted from the site with skin excoriation. left lower abdominal wall edema ,redness and with weeping skin), Normal Bowel Sounds - Extremities Exam Extremities Exam: Full ROM. absent: Normal Inspection (chronic skin chnages) - Back Exam Back Exam: NORMAL INSPECTION - Neurological Exam Neurological Exam: Awake - Psychiatric Exam Psychiatric exam: Normal Affect, Normal Mood - Skin Skin Exam: Erythema (left lower abdominal wall,edema,wheeping skin. Right drain sites,one with bloody drain) Assessment and Plan - Assessment and Plan (Free Text) Plan: 1. Septic Shock secondary to ascending Cholangitis He was brought from [place] on pressor for emergent dialysis Patient was septic and hypotensive on pressors Leukocytes are high 19.2 today Ciprofloxacin 400mg IVPB Q24 (active since 11/14/17) Meropenem 500mg IVPB QAM (active since 11/11/17) Dr. Abdi on board blood cultures negative,Bile (11/11/17): Stenotrophomonas Maltophilia continue solucortef and vasopressin d/w Dr Vargas GI Dr. Neville on board 2) Acute Renal Failure Dr Ge yu on board 3rd dialysis on Saturday Today's creatinin 4.1 UOP 1150ml continue phoslo and nephrovite 3) Painless Obstructive Jaundice Concern for mass and rule out malignancy ERCP was canceled at [facility] due to hypotension GI Dr. Neville on board Discussed with protection engineer DR Vargas about the plan. Seen by Dr Neville this morning,planing for stent by IR We will follow with DR Neville General surgery Dr. Boudreaux on board s/p cholecystostomy with drain and biliary drain placement Drain site leak with skin excoriation. 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 Deanne Jin on board There was a discussion about transferring him to [facility] for specialized care once he is off pressor. We will follow up with GI 4) Coagulopathy s/p elevated INR requiring FFP. patient was on coumadin for known atrial fibrillation history Aspirin secondary allergic reaction 5) Atrial fibrillation Patient is on pressor and off anti-hypertensive Now on DVT prophylaxis dosing Echocardiogram (10/31/17) systolic function is mildly impaired, global hypokinesis of left ventricle,EF 40% he has prior admission for coumadin toxicity/Hypercoagulation 6) Congestive Heart Failure, Systolic Cardiology Dr. Combs on board off anti-hypertensive; currently on pressor Aspirin secondary allergic reaction 7) Prophylactic measure patient is on heparin sq, protonix 40mg IV daily Full code
[2017-11-17] MEDS: Ciprofloxacin 400mg/200ml D5W 400 MG/200 ML BAG IVPB SCH (15:50)
--- NOTE | 2017-11-17 18:54 | CP.CCUPN ---
CCU Objective - Vital Signs / Intake & Output Vital Signs (Last 4 hours): Vital Signs Pulse Resp BP Pulse Ox 11/17/17 18:30 76 9 L 96 11/17/17 18:00 82 9 L 96/60 L 96 11/17/17 17:30 94 H 15 95 11/17/17 17:00 81 10 L 101/70 94 L 11/17/17 16:30 82 10 L 94 L 11/17/17 16:00 83 8 L 124/73 93 L 11/17/17 15:43 87 9 L 112/73 92 L 11/17/17 15:30 82 10 L 91 L 11/17/17 15:00 85 13 107/69 93 L Intake and Output (Last 8hrs): Intake & Output 11/17/17 11/17/17 11/17/17 06:59 14:59 22:59 Intake Total 49.6 239.6 104.8 Output Total 450 500 220 Balance -400.4 -260.4 -115.2 Weight 300 lb 0.8 oz Intake: IV 40 Intake, IV Amount 9.6 9.6 4.8 Right Proximal Port 9.6 9.6 4.8 Internal Jugular Oral 230 100 Output: Urine 450 500 220 Urine, Voided 450 500 220 Other: # Voids Urine, Voided 1 2 1 # Bowel Movements 0 - Physical Exam Head: Positive for: Atraumatic, Normocephalic Extroacular Muscles: Positive for: EOMI Conjunctiva: Positive for: Icteric Mouth: Positive for: Moist Mucous Membranes Respiratory/Chest: Positive for: Clear to Auscultation. Negative for: Respiratory Distress, Accessory Muscle Use, Wheezes, Rales, Rhonchi Cardiovascular: Positive for: Regular Rate and Rhythm, Normal S1, S2 Abdomen: Positive for: Normal Bowel Sounds. Negative for: Tenderness, Distention, Peritoneal Signs, Guarding, Mass/Organomegaly Lower Extremity: Positive for: Edema (2+ B/L ). Negative for: CALF TENDERNESS Neurological: Positive for: GCS=15, Speech Normal, Memory Normal Skin: Positive for: Other (Jaundinced) Psychiatric: Positive for: Alert, Oriented x 3, Normal Insight, Normal Concentration - Medications Active Medications: Active Medications Generic Name Dose Route Start Last Admin Trade Name Freq PRN Reason Stop Dose Admin Calcium Acetate 1,334 mg 11/11/17 12:00 11/17/17 17:50 Phoslo PO 1,334 mg TIDCC JAQUELINE Administration Heparin Sodium (Porcine) 5,000 units 11/14/17 17:45 11/17/17 14:01 Heparin SC 5,000 units Q8 JAQUELINE Administration Hydrocortisone Sodium Succinate 50 mg 11/16/17 22:00 11/17/17 09:43 Solu-Cortef IV 50 mg Q12H JAQUELINE Administration Hydromorphone HCl 0.5 mg 11/17/17 08:14 11/17/17 15:30 Dilaudid IVP 0.5 mg Q6H PRN Administration Pain, severe (8-10) Meropenem 500 mg/ Sodium 100 mls @ 100 mls/hr 11/11/17 10:00 11/17/17 09:44 Chloride IVPB 100 mls/hr QAM JAQUELINE Administration Protocol Vasopressin 40 units/ Dextrose 40 mls @ 2.4 mls/hr 11/10/17 21:30 11/17/17 03 :30 IV Not Given .[id number] JAQUELINE Protocol 0.04 UNITS/MIN Ciprofloxacin 400 mg in 200 mls @ 133 mls/hr 11/14/17 15:30 11/17/17 15:50 Cipro 400mg/200ml Dsw IVPB 133 mls/hr Q24H JAQUELINE Administration Protocol Insulin Aspart 0 unit 11/17/17 16:30 11/17/17 16:49 Novolog SC Not Given ACHS JAQUELINE Protocol Ondansetron HCl 4 mg 11/11/17 16:49 11/17/17 06:00 Zofran Inj IVP 4 mg Q6 PRN Administration Nausea/Vomiting Pantoprazole Sodium 40 mg 11/11/17 10:00 11/17/17 09:43 Protonix Inj IVP 40 mg DAILY JAQUELINE Administration Vitamin B Complex/Vit C/Folic Acid 1 tab 11/12/17 08:00 11/17/17 08:26 Nephro-Ken PO 1 tab 0800 JAQUELINE Administration - Patient Studies Lab Studies: Lab Studies 11/17/17 11/17/17 11/17/17 Range/Units 16:36 11:39 06:43 WBC (4.8-10.8) K/uL RBC (4.40-5.90) Mil/uL Hgb (12.0-18.0) g/dL Hct (35.0-51.0) % MCV (80.0-94.0) fL MCH (27.0-31.0) pg MCHC (33.0-37.0) g/dL RDW (11.5-14.5) % Plt Count (130-400) K/uL MPV (7.2-11.7) fL Sodium (132-148) mmol/L Potassium (3.6-5.2) mmol/L Chloride (98-107) mmol/L Carbon Dioxide (22-30) mmol/L Anion Gap (10-20) BUN (9-20) mg/dL Creatinine (0.8-1.5) mg/dL Est GFR ( Amer) Est GFR (Non-Af Amer) POC Glucose (mg/dL) 145 H 95 84 (65-110) mg/dL Random Glucose (75-110) mg/dL Calcium (8.6-10.4) mg/dl Phosphorus (2.5-4.5) mg/dL Magnesium (1.6-2.3) mg/dL Total Bilirubin (0.2-1.3) mg/dL AST (17-59) U/L ALT (21-72) U/L Alkaline Phosphatase (38-126) U/L Total Protein (6.3-8.3) g/dL Albumin (3.5-5.0) g/dL Globulin (2.2-3.9) gm/dL Albumin/Globulin Ratio (1.0-2.1) Actin IgG Antibody (<20) U 11/17/17 11/17/17 11/16/17 Range/Units 06:41 06:41 23:41 WBC 19.2 H (4.8-10.8) K/uL RBC 3.17 L (4.40-5.90) Mil/uL Hgb 10.4 L (12.0-18.0) g/dL Hct 29.3 L (35.0-51.0) % MCV 92.4 (80.0-94.0) fL MCH 32.7 H (27.0-31.0) pg MCHC 35.4 (33.0-37.0) g/dL RDW 16.3 H (11.5-14.5) % Plt Count 165 (130-400) K/uL MPV 9.6 (7.2-11.7) fL Sodium 146 (132-148) mmol/L Potassium 3.3 L (3.6-5.2) mmol/L Chloride 106 (98-107) mmol/L Carbon Dioxide 27 (22-30) mmol/L Anion Gap 16 (10-20) BUN 76 H (9-20) mg/dL Creatinine 4.1 H (0.8-1.5) mg/dL Est GFR ( Amer) 17 Est GFR (Non-Af Amer) 14 POC Glucose (mg/dL) 106 (65-110) mg/dL Random Glucose 108 (75-110) mg/dL Calcium 7.4 L (8.6-10.4) mg/dl Phosphorus 5.8 H (2.5-4.5) mg/dL Magnesium 2.1 (1.6-2.3) mg/dL Total Bilirubin 23.1 H (0.2-1.3) mg/dL AST 84 H (17-59) U/L ALT 88 H (21-72) U/L Alkaline Phosphatase 231 H (38-126) U/L Total Protein 5.8 L (6.3-8.3) g/dL Albumin 2.7 L (3.5-5.0) g/dL Globulin 3.1 (2.2-3.9) gm/dL Albumin/Globulin Ratio 0.9 L (1.0-2.1) Actin IgG Antibody (<20) U 11/12/17 Range/Units 15:50 WBC (4.8-10.8) K/uL RBC (4.40-5.90) Mil/uL Hgb (12.0-18.0) g/dL Hct (35.0-51.0) % MCV (80.0-94.0) fL MCH (27.0-31.0) pg MCHC (33.0-37.0) g/dL RDW (11.5-14.5) % Plt Count (130-400) K/uL MPV (7.2-11.7) fL Sodium (132-148) mmol/L Potassium (3.6-5.2) mmol/L Chloride (98-107) mmol/L Carbon Dioxide (22-30) mmol/L Anion Gap (10-20) BUN (9-20) mg/dL Creatinine (0.8-1.5) mg/dL Est GFR ( Amer) Est GFR (Non-Af Amer) POC Glucose (mg/dL) (65-110) mg/dL Random Glucose (75-110) mg/dL Calcium (8.6-10.4) mg/dl Phosphorus (2.5-4.5) mg/dL Magnesium (1.6-2.3) mg/dL Total Bilirubin (0.2-1.3) mg/dL AST (17-59) U/L ALT (21-72) U/L Alkaline Phosphatase (38-126) U/L Total Protein (6.3-8.3) g/dL Albumin (3.5-5.0) g/dL Globulin (2.2-3.9) gm/dL Albumin/Globulin Ratio (1.0-2.1) Actin IgG Antibody <20 (<20) U Laboratory Results - last 24 hr 11/12/17 11/16/17 11/17/17 15:50 23:41 06:41 WBC 19.2 H RBC 3.17 L Hgb 10.4 L Hct 29.3 L MCV 92.4 MCH 32.7 H MCHC 35.4 RDW 16.3 H Plt Count 165 MPV 9.6 Sodium Potassium Chloride Carbon Dioxide Anion Gap BUN Creatinine Est GFR ( Amer) Est GFR (Non-Af Amer) POC Glucose (mg/dL) 106 Random Glucose Calcium Phosphorus Magnesium Total Bilirubin AST ALT Alkaline Phosphatase Total Protein Albumin Globulin Albumin/Globulin Ratio Actin IgG Antibody <20 11/17/17 11/17/17 11/17/17 06:41 06:43 11:39 WBC RBC Hgb Hct MCV MCH MCHC RDW Plt Count MPV Sodium 146 Potassium 3.3 L Chloride 106 Carbon Dioxide 27 Anion Gap 16 BUN 76 H Creatinine 4.1 H Est GFR ( Amer) 17 Est GFR (Non-Af Amer) 14 POC Glucose (mg/dL) 84 95 Random Glucose 108 Calcium 7.4 L Phosphorus 5.8 H Magnesium 2.1 Total Bilirubin 23.1 H AST 84 H ALT 88 H Alkaline Phosphatase 231 H Total Protein 5.8 L Albumin 2.7 L Globulin 3.1 Albumin/Globulin Ratio 0.9 L Actin IgG Antibody 11/17/17 16:36 WBC RBC Hgb Hct MCV MCH MCHC RDW Plt Count MPV Sodium Potassium Chloride Carbon Dioxide Anion Gap BUN Creatinine Est GFR ( Amer) Est GFR (Non-Af Amer) POC Glucose (mg/dL) 145 H Random Glucose Calcium Phosphorus Magnesium Total Bilirubin AST ALT Alkaline Phosphatase Total Protein Albumin Globulin Albumin/Globulin Ratio Actin IgG Antibody Fingerstick Blood Sugar Results: 145 Critical Care Progress Note - Nutrition Nutrition: Nutrition Category Date Time Status NPO Diet [DIET] Diets 11/18/17 Breakfast Active Renal Diet [DIET] Diets 11/17/17 Lunch Active
[2017-11-18 00:59] LABS: SQUAMOUS EPITHIAL 1 /hpf (0-5); URINE BACTERIA RARE (<OCC); URINE BILIRUBIN 1+ (NEGATIVE); URINE BLOOD 2+ (NEGATIVE); URINE CLARITY Hazy (Clear); URINE COLOR Amber (YELLOW); URINE GLUCOSE (UA) NORMAL (Normal); URINE LEUKOCYTE ESTERASE NEG Leu/uL (Negative); URINE PROTEIN NEGATIVE (NEGATIVE)
[2017-11-18] MEDS: HYDROmorphone 0.5 mg/0.5 ml ISec IVP PRN ×3 (01:20→15:15)
[2017-11-18 06:35] LABS: HEMOGLOBIN 9.8 g/dL (12.0-18.0); MEAN CELL VOLUME 92.9 fL (80.0-94.0); MEAN CORPUSCULAR HEMOGLOBIN 32.7 pg (27.0-31.0); MEAN CORPUSCULAR HGB CONC 35.2 g/dL (33.0-37.0); MEAN PLATELET VOLUME 9.4 fL (7.2-11.7); PLATELET COUNT 146 K/uL (130-400); RBC 2.98 Mil/uL (4.40-5.90); RED CELL DISTRIBUTION WIDTH 16.7 % (11.5-14.5); WHITE BLOOD COUNT 19.2 K/uL (4.8-10.8)
[2017-11-18 06:50] LABS: ALB/GLOB RATIO 0.9 (1.0-2.1); ALBUMIN 2.6 g/dL (3.5-5.0); CALCIUM 7.3 mg/dl (8.6-10.4)
[2017-11-18] MEDS: (Novolog) Insulin Aspart, Recombinant 100 u/ml 10 ml vial SC SCH ×4 (07:30→22:08)
[2017-11-18] MEDS: Meropenem 500 MG in Sodium Chloride 0.9% 100 ML IVPB SCH (09:10)
[2017-11-18] MEDS: Multivitamin Vitamin B Complex (Nephro-Vite) Tab PO SCH (09:10)
[2017-11-18 10:05] LABS: LYMPH # 1.2 K/uL (1.0-4.3); MONO # 1.3 K/uL (0.0-0.8); NEUT # 16.7 K/uL (1.8-7.0)
[2017-11-18 10:07] LABS: ANISOCYTOSIS SLIGHT; BANDS 1 % (0-2); LYMPHOCYTE 4 % (20-40); MONOCYTE 7 % (0-10); MYELOCYTE 2 % (0-0); NEUTROPHIL 86 % (50-75); PLATELET ESTIMATE NORMAL (NORMAL); POIKILOCYTOSIS SLIGHT; TARGET CELLS MODERATE; TOTAL CELLS COUNTED 100
[2017-11-18] MEDS ORDERED: Potassium Chloride 20 mEq ER Tab PO SCH (11:00)
--- NOTE | 2017-11-18 11:38 | CP.PCM.PN ---
Subjective - Date & Time of Evaluation Date of Evaluation: 11/18/17 Time of Evaluation: 11:35 - Subjective Subjective: Nephrology Consultation Note Assessment: critical oligoanuric MACIE likely due to ATN due to shock with ? sepsis ? bile cast nephropathy. other possible causes may include hepato-renal, recent IV contrast exposure: started HD 11/11/17: IMPROVING HAGMA, hypokalemia and hypernatremia obstructive jaundice ? possible cause as pancreatic mass/cholangicarcinoma HTN, CHF, A fib, morbd obesity moderate TR left 2 cm adrenal adenoma hyperphosphatemia Anemia s/p cholecystotomy tube Plan UOP better and BUN/cr stable. Hence, no acute need for dialysis today. last HD done 11/15/17. continue to monitor for spontaneous renal recovery maintain hemodynamics stable. avoid hypotension monitor I/O daily weights and renal function with BMP added phoslo, continue same GI, ID, heme/onc following plan for ERCP once stable. pt may be a possible transfer to tertiary care center dose of KCL today 20 meq. encourage free water intake work up for adrenal adenoma later as outpt once stable Dose meds/antibiotics for reduced GFR. Avoid fleets enema/magnesium based laxatives. Avoid nephrotoxins/NSAIDs/ iodinated contrast (unless needed emergently) Glycemic control, Further work up for as per primary team. Thanks for allowing me to participate in care of your patient. will follow with you. Please call if any Qs. had d/w family and team Dr Jairo Carolina Office: [phone] reason for consult: MACIE HPI: Pt is a 77 y/o M with hx of HTN, CHF, A fib, morbd obesity recently diagnosed with jaundice and undergoing work up for it, so far suggestive of pancreatic mass, admitted to [facility] with MACIE, decreased urine output and rise in bili, he was found to have hypotension prior to ERCP hence was transferred to [place]. Pt had dialysis catheter placed and transferred to [facility] for dialysis initiation renal consult for MACIE management. pt feels ill and tired. has decresaed appetite. no aware about kidney disease in past says not making much urine no OTC/nsaids/herba meds CT with contrast done 10/30 evening. cr 10/31 AM 1.0 low BP noted, pt requiring pressors ROS: he denies SOB/chest pain/nausea/vomitting. rest all other neg except as mentioned in HPI siu removed. he feels tired and weak Physical Examination: General Appearance: Comfortable, co-operative. no acute distress Vitals reviewed and noted as below Head; Atraumatic, normocephalic ENT: no ulcers no thrush. Tongue is midline/moist. Oropharynx: no rash or ulcers. EYES: Pupils are equal, round and reactive to light accommodation. Eye muscles and extraocular movement intact. Sclera is icteric. Neck; supple no lymphadenopathy, no thyromegaly or bruit Lungs: normal respiratory rate/effort. Breath sounds appears clear b/l anteriorly Heart: Normal rate. s1s2 normal. No rub or gallop. Extremities: no edema. No varicose veins Neurological: Patient is alert, awake, oriented x 3 follows commands, no focal deifict. NO ASTERIXIS Skin: dry and warm. Normal turgor. No rash. Palpitation: Normal elasticity for age. grossly yellow Abdomen: Abdomen is soft non tender no apparent organomegaly Psych: normal insight. has normal affect and mood MSK: no specific joint tenderness or swelling. Digits and nails normal, no deformity : kidney not palpable. bladder not distended . access: Rt [facility] Labs/imaging/EKG reviewed. Past medical history, past surgical history, social history, allergy reviewed and noted as below Family hx; no hx of CKD. rest non contributory work up: left adrenal 2 cm adenoma moderate TR and mildly reduced LVEF UA 100 prot and GNR Bilirubin 36 initially now down trending Objective - Vital Signs/Intake and Output Vital Signs (last 24 hours): Temp Pulse Resp BP Pulse Ox 97.4 F L 85 8 L 112/69 94 L 11/18/17 04:00 11/18/17 09:00 11/18/17 09:00 11/18/17 09:00 11/18/17 09:00 Intake and Output: 11/18/17 11/18/17 06:59 18:59 Intake Total 257.4 2.4 Output Total 1160 0 Balance -902.6 2.4 - Medications Medications: Current Medications Calcium Acetate (Phoslo) 1,334 mg PO TIDCC [facility] Last Admin: 11/18/17 08:01 Dose: Not Given Heparin Sodium (Porcine) (Heparin) 5,000 units SC Q8 [facility] Last Admin: 11/18/17 05:11 Dose: 5,000 units Hydrocortisone Sodium Succinate (Solu-Cortef) 50 mg IV Q12H JAQUELINE Last Admin: 11/18/17 10:01 Dose: 50 mg Hydromorphone HCl (Dilaudid) 0.5 mg IVP Q6H PRN PRN Reason: Pain, severe (8-10) Last Admin: 11/18/17 10:14 Dose: 0.5 mg Meropenem 500 mg/ Sodium (Chloride) 100 mls @ 100 mls/hr IVPB QAM JAQUELINE PRN Reason: Protocol Last Admin: 11/18/17 09:10 Dose: 100 mls/hr Vasopressin 40 units/ Dextrose 40 mls @ 2.4 mls/hr IV .[id number] JAQUELINE; 0.04 UNITS/ MIN PRN Reason: Protocol Last Titration: 11/18/17 08:00 Dose: 0.02 units/min, 1.2 mls/hr Ciprofloxacin (Cipro 400mg/200ml Dsw) 400 mg in 200 mls @ 133 mls/hr IVPB Q24H JAQUELINE PRN Reason: Protocol Last Admin: 11/17/17 15:50 Dose: 133 mls/hr Insulin Aspart (Novolog) 0 unit SC ACHS JAQUELINE PRN Reason: Protocol Last Admin: 11/18/17 07:30 Dose: Not Given Midodrine (Proamatine) 2.5 mg PO TID [facility] Ondansetron HCl (Zofran Inj) 4 mg IVP Q6 PRN PRN Reason: Nausea/Vomiting Last Admin: 11/17/17 06:00 Dose: 4 mg Pantoprazole Sodium (Protonix Inj) 40 mg IVP DAILY [facility] Last Admin: 11/18/17 09:10 Dose: 40 mg Vitamin B Complex/Vit C/Folic Acid (Nephro-Ken) 1 tab PO 0800 [facility] Last Admin: 11/18/17 09:10 Dose: 1 tab - Labs Labs: 11/18/17 06:24 11/18/17 06:24 PT 14.6 SECONDS (9.7-12.2) H 11/15/17 06:32 INR 1.3 11/15/17 06:32 APTT 30 SECONDS (21-34) 11/15/17 06:32
--- NOTE | 2017-11-18 14:31 | CP.PCM.PN ---
Subjective - Date & Time of Evaluation Date of Evaluation: 11/18/17 Time of Evaluation: 14:28 - Subjective Subjective: GI Fellow PGY4, Progress note. Patient seen and examined at bedside. No acute events overnight. No complaints. Eating lunch. He had bandages replaced over biliary leak, apparently skin excoriations present. Last BM was Yesterday. Last HD was two day ago. 12pt ROS completed and negative except for as above. Objective - Vital Signs/Intake and Output Vital Signs (last 24 hours): Temp Pulse Resp BP Pulse Ox 97.4 F L 82 9 L 88/64 L 94 L 11/18/17 04:00 11/18/17 14:00 11/18/17 14:00 11/18/17 14:00 11/18/17 14:00 Intake and Output: 11/18/17 11/18/17 06:59 18:59 Intake Total 257.4 9.6 Output Total 1160 0 Balance -902.6 9.6 - Medications Medications: Current Medications Calcium Acetate (Phoslo) 1,334 mg PO TIDCC [facility] Last Admin: 11/18/17 08:01 Dose: Not Given Heparin Sodium (Porcine) (Heparin) 5,000 units SC Q8 JAQUELINE Last Admin: 11/18/17 05:11 Dose: 5,000 units Hydrocortisone Sodium Succinate (Solu-Cortef) 50 mg IV Q12H [facility] Last Admin: 11/18/17 10:01 Dose: 50 mg Hydromorphone HCl (Dilaudid) 0.5 mg IVP Q6H PRN PRN Reason: Pain, severe (8-10) Last Admin: 11/18/17 10:14 Dose: 0.5 mg Meropenem 500 mg/ Sodium (Chloride) 100 mls @ 100 mls/hr IVPB QAM [facility] PRN Reason: Protocol Last Admin: 11/18/17 09:10 Dose: 100 mls/hr Vasopressin 40 units/ Dextrose 40 mls @ 2.4 mls/hr IV .[id number] JAQUELINE; 0.04 UNITS/ MIN PRN Reason: Protocol Last Titration: 11/18/17 08:00 Dose: 0.02 units/min, 1.2 mls/hr Ciprofloxacin (Cipro 400mg/200ml Dsw) 400 mg in 200 mls @ 133 mls/hr IVPB Q24H JAQUELINE PRN Reason: Protocol Last Admin: 11/17/17 15:50 Dose: 133 mls/hr Insulin Aspart (Novolog) 0 unit SC ACHS JAQUELINE PRN Reason: Protocol Last Admin: 11/18/17 07:30 Dose: Not Given Midodrine (Proamatine) 2.5 mg PO TID [facility] Last Admin: 11/18/17 13:44 Dose: 2.5 mg Ondansetron HCl (Zofran Inj) 4 mg IVP Q6 PRN PRN Reason: Nausea/Vomiting Last Admin: 11/17/17 06:00 Dose: 4 mg Pantoprazole Sodium (Protonix Ec Tab) 40 mg PO DAILY [facility] Vitamin B Complex/Vit C/Folic Acid (Nephro-Ken) 1 tab PO 0800 [facility] Last Admin: 11/18/17 09:10 Dose: 1 tab - Labs Labs: 11/18/17 06:24 11/18/17 06:24 PT 14.6 SECONDS (9.7-12.2) H 11/15/17 06:32 INR 1.3 11/15/17 06:32 APTT 30 SECONDS (21-34) 11/15/17 06:32 - Constitutional Appears: Non-toxic, No Acute Distress, Chronically Ill - Head Exam Head Exam: ATRAUMATIC, NORMAL INSPECTION, NORMOCEPHALIC - Eye Exam Eye Exam: EOMI, Normal appearance, PERRL - ENT Exam ENT Exam: Mucous Membranes Moist, Normal Exam - Respiratory Exam Respiratory Exam: Clear to Ausculation Bilateral, NORMAL BREATHING PATTERN - Cardiovascular Exam Cardiovascular Exam: REGULAR RHYTHM, +S1, +S2. absent: Murmur - GI/Abdominal Exam GI & Abdominal Exam: Soft, Normal Bowel Sounds. absent: Tenderness - Extremities Exam Extremities Exam: Full ROM, Normal Capillary Refill, Normal Inspection. absent : Joint Swelling, Pedal Edema - Neurological Exam Neurological Exam: Alert, Awake, CN II-XII Intact, Oriented x3 - Psychiatric Exam Psychiatric exam: Normal Affect, Normal Mood - Skin Skin Exam: Dry, Intact Additional comments: Jaundice present, improving. Assessment and Plan - Assessment and Plan (Free Text) Assessment: 77yo WM with hx of sytolic CHF, AFIB, recent GI bleed, and presenting with obstructive jaundice, HoTN, septic shock concerning for acute cholangitis and imaging findings concerning for cholangiocarcinoma. 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 -S/P PTC and drain 11/11/17 -PTC revealed: "Cholangiogram showed common hepatic mass extending into right hepatic duct". I discussed result with IR and concerned for cholangiocarcinoma. -Extracutaneous biliary leak per surgical team -Continue to monitor microbio. + Stenotrophomonas Maltophilia. Sensitive to cipro. Continue abx management per ID. -Agree with IV ppi for recent GI bleed and high risk for stress ulcer. As pressors weaned off, can change to PO. -PENDING labs: anti-smooth muscle. Anti-mitochondrial negative. -CA19-9, CEA significantly elevated, concerning for malignancy. -Patient too unstable for ERCP. -We have contacted [facility] for transfer as he may need specialized procedures. Revisit transfer when off IV pressor support. -Continue diet. No ERCP planned. Do not need to keep NPO past midnight. -Further management pending clinical progress. We will continue to monitor patient course.
[2017-11-18] MEDS: Ciprofloxacin 400mg/200ml D5W 400 MG/200 ML BAG IVPB SCH (14:58)
--- NOTE | 2017-11-18 16:01 | CP.PCM.PN ---
Subjective - Date & Time of Evaluation Date of Evaluation: 11/18/17 Time of Evaluation: 10:40 - Subjective Subjective: seen and examined by me. lying comfortable without pain,Happy with nursing care He is hungry,denies nausea,no vomiting,no abdominal pain Patient is on Vasopressin Objective - Vital Signs/Intake and Output Vital Signs (last 24 hours): Temp Pulse Resp BP Pulse Ox 97.8 F 81 9 L 95/71 L 92 L 11/18/17 14:00 11/18/17 15:30 11/18/17 15:30 11/18/17 15:00 11/18/17 15:30 Intake and Output: 11/18/17 11/18/17 06:59 18:59 Intake Total 257.4 19.0 Output Total 1160 1350 Balance -902.6 -1331.0 - Medications Medications: Current Medications Calcium Acetate (Phoslo) 1,334 mg PO TIDCC [facility] Last Admin: 11/18/17 12:00 Dose: Not Given Heparin Sodium (Porcine) (Heparin) 5,000 units SC Q8 [facility] Last Admin: 11/18/17 14:58 Dose: 5,000 units Hydrocortisone Sodium Succinate (Solu-Cortef) 50 mg IV Q12H [facility] Last Admin: 11/18/17 10:01 Dose: 50 mg Hydromorphone HCl (Dilaudid) 0.5 mg IVP Q6H PRN PRN Reason: Pain, severe (8-10) Last Admin: 11/18/17 15:15 Dose: 0.5 mg Meropenem 500 mg/ Sodium (Chloride) 100 mls @ 100 mls/hr IVPB QAM [facility] PRN Reason: Protocol Last Admin: 11/18/17 09:10 Dose: 100 mls/hr Vasopressin 40 units/ Dextrose 40 mls @ 2.4 mls/hr IV .[id number] [facility]; 0.04 UNITS/ MIN PRN Reason: Protocol Last Titration: 11/18/17 13:00 Dose: 0.04 units/min, 2.4 mls/hr Ciprofloxacin (Cipro 400mg/200ml Dsw) 400 mg in 200 mls @ 133 mls/hr IVPB Q24H [facility] PRN Reason: Protocol Last Admin: 11/18/17 14:58 Dose: 133 mls/hr Insulin Aspart (Novolog) 0 unit SC ACHS [facility] PRN Reason: Protocol Last Admin: 11/18/17 11:30 Dose: Not Given Midodrine (Proamatine) 2.5 mg PO TID [facility] Last Admin: 11/18/17 13:44 Dose: 2.5 mg Ondansetron HCl (Zofran Inj) 4 mg IVP Q6 PRN PRN Reason: Nausea/Vomiting Last Admin: 11/17/17 06:00 Dose: 4 mg Pantoprazole Sodium (Protonix Ec Tab) 40 mg PO DAILY [facility] Vitamin B Complex/Vit C/Folic Acid (Nephro-Ken) 1 tab PO 0800 [facility] Last Admin: 11/18/17 09:10 Dose: 1 tab - Labs Labs: 11/18/17 06:24 11/18/17 06:24 PT 14.6 SECONDS (9.7-12.2) H 11/15/17 06:32 INR 1.3 11/15/17 06:32 APTT 30 SECONDS (21-34) 11/15/17 06:32 - Constitutional Appears: Non-toxic, Chronically Ill - Head Exam Head Exam: NORMAL INSPECTION - Eye Exam Eye Exam: Normal appearance - ENT Exam ENT Exam: Mucous Membranes Moist - Neck Exam Neck Exam: Full ROM - Respiratory Exam Respiratory Exam: Clear to Ausculation Bilateral, NORMAL BREATHING PATTERN - Cardiovascular Exam Cardiovascular Exam: REGULAR RHYTHM - GI/Abdominal Exam GI & Abdominal Exam: Soft, Normal Bowel Sounds. absent: Tenderness (Has two drain on right abdomen with dressing on,left abdomen is dry/redness is resolving ) - Exam External exam: Swelling - Extremities Exam Extremities Exam: absent: Full ROM (with scd and heavy feeling wekan to have full movement) - Neurological Exam Neurological Exam: Awake, Oriented x3 - Psychiatric Exam Psychiatric exam: Normal Affect, Normal Mood - Skin Skin Exam: Dry, Intact, Normal Color Assessment and Plan - Assessment and Plan (Free Text) Plan: 1. Septic Shock secondary to ascending Cholangitis He was brought from [place] on pressor for emergent dialysis Patient was septic and hypotensive on vasopressin Leukocytes are high 19.2 today Ciprofloxacin 400mg IVPB Q24 (active since 11/14/17) Meropenem 500mg IVPB QAM (active since 11/11/17) Dr. Abdi on board blood cultures negative,Bile (11/11/17): Stenotrophomonas Maltophilia continue solucortef and vasopressin He is strated on Midodrine d/w Dr Vargas GI Dr. Neville on board,GI fellows noted appreciated 2) Acute Renal Failure Dr Carolina group on board D/W Dr Carolina. He added K. no plan for dialysis 3rd dialysis on Saturday Today's creatinin 4.1 UOP 1150ml continue phoslo and nephrovite 3) Painless Obstructive Jaundice Concern for mass and rule out malignancy ERCP was canceled at [facility] due to hypotension GI Dr. Neville on board As per GI patient will go to [facility] for stent placement once he is off pressors General surgery Dr. 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 Deanne iJn on board [facility] off pressor. We will follow up with GI 4) Coagulopathy s/p elevated INR requiring FFP. patient was on coumadin for known atrial fibrillation history Aspirin secondary allergic reaction 5) Atrial fibrillation Patient is on pressor and off anti-hypertensive Now on DVT prophylaxis dosing Echocardiogram (10/31/17) systolic function is mildly impaired, global hypokinesis of left ventricle,EF 40% he has prior admission for coumadin toxicity/Hypercoagulation 6) Congestive Heart Failure, Systolic Cardiology Dr. Combs on board off anti-hypertensive; currently on pressor Aspirin secondary allergic reaction 7) Prophylactic measure patient is on heparin sq, protonix 40mg IV daily Full code
[2017-11-18] MEDS: Vasopressin 40 UNITS in Dextrose 5% In Water 38 ML IV SCH (16:54)
--- NOTE | 2017-11-18 18:29 | CP.CCUPN ---
CCU Subjective - Physician Review Subjective (Free Text): 11/12/17 12:14 77 yo M w/ PMHx of HTN, A. Fib, CHF, admitted for painless jaundice(Tbil 37.6) and MACIE from [facility], in need of emergent HD. Complains of weakness, and isolated episode of nausea, pruritus improving. Pt denies SOB, chest pain, palpitations, abdominal pain, vomiting, fever, chills. Patient to be transferred to [facility] pending GI. 11/18/17 18:22 CCU Objective - Vital Signs / Intake & Output Vital Signs (Last 4 hours): Vital Signs Pulse Resp BP Pulse Ox 11/18/17 17:00 87 10 L 84/57 L 94 L 11/18/17 16:54 78 16 94/65 L 98 11/18/17 16:30 88 13 95 11/18/17 16:00 82 9 L 94/65 L 94 L 11/18/17 15:30 81 9 L 92 L 11/18/17 15:00 76 9 L 95/71 L 94 L 11/18/17 14:30 87 14 94 L Intake and Output (Last 8hrs): Intake & Output 11/18/17 11/18/17 11/18/17 06:59 14:59 22:59 Intake Total 252.0 16.6 43.2 Output Total 2125 695 2436 Balance -758.0 -933.4 -1256.8 Weight 295 lb 13.765 oz Intake: IV 0 4.0 36 Intake, IV Amount 12.0 12.6 7.2 Right IJ trialysis cath 12.0 12.6 7.2 Oral 240 0 0 Output: Drainage 197 803 0344 R lower cholecystostomy 30 300 1200 Right upper biliary rain 80 100 Urine 900 550 100 Urine, Voided 900 550 100 Other: # Bowel Movements 0 0 0 - Physical Exam Head: Positive for: Atraumatic, Normocephalic Extroacular Muscles: Positive for: EOMI Conjunctiva: Positive for: Icteric Mouth: Positive for: Moist Mucous Membranes Respiratory/Chest: Positive for: Clear to Auscultation. Negative for: Respiratory Distress, Accessory Muscle Use, Wheezes, Rales, Rhonchi Cardiovascular: Positive for: Regular Rate and Rhythm, Normal S1, S2 Abdomen: Positive for: Normal Bowel Sounds. Negative for: Tenderness, Distention, Peritoneal Signs, Guarding, Mass/Organomegaly Lower Extremity: Positive for: Edema (2+ B/L ). Negative for: CALF TENDERNESS Neurological: Positive for: GCS=15, Speech Normal, Memory Normal Skin: Positive for: Other (Jaundinced) Psychiatric: Positive for: Alert, Oriented x 3, Normal Insight, Normal Concentration - Medications Active Medications: Active Medications Generic Name Dose Route Start Last Admin Trade Name Freq PRN Reason Stop Dose Admin Calcium Acetate 1,334 mg 11/11/17 12:00 11/18/17 17:54 Phoslo PO Not Given TIDCC JAQUELINE Heparin Sodium (Porcine) 5,000 units 11/14/17 17:45 11/18/17 14:58 Heparin SC 5,000 units Q8 JAQUELINE Administration Hydrocortisone Sodium Succinate 50 mg 11/16/17 22:00 11/18/17 10:01 Solu-Cortef IV 50 mg Q12H JAQUELINE Administration Hydromorphone HCl 0.5 mg 11/17/17 08:14 11/18/17 15:15 Dilaudid IVP 0.5 mg Q6H PRN Administration Pain, severe (8-10) Meropenem 500 mg/ Sodium 100 mls @ 100 mls/hr 11/11/17 10:00 11/18/17 09:10 Chloride IVPB 100 mls/hr QAM JAQUELINE Administration Protocol Vasopressin 40 units/ Dextrose 40 mls @ 2.4 mls/hr 11/10/17 21:30 11/18/17 16 :54 IV 0.04 units/min .[id number] JAQUELINE 2.4 mls/hr Protocol Administration 0.04 UNITS/MIN Ciprofloxacin 400 mg in 200 mls @ 133 mls/hr 11/14/17 15:30 11/18/17 14:58 Cipro 400mg/200ml Dsw IVPB 133 mls/hr Q24H JAQUELINE Administration Protocol Insulin Aspart 0 unit 11/17/17 16:30 11/18/17 16:30 Novolog SC Not Given ACHS JAQUELINE Protocol Midodrine 2.5 mg 11/18/17 10:00 11/18/17 17:05 Proamatine PO 2.5 mg TID JAQUELINE Administration Ondansetron HCl 4 mg 11/11/17 16:49 11/17/17 06:00 Zofran Inj IVP 4 mg Q6 PRN Administration Nausea/Vomiting Pantoprazole Sodium 40 mg 11/19/17 10:00 Protonix Ec Tab PO DAILY JAQUELINE Vitamin B Complex/Vit C/Folic Acid 1 tab 11/12/17 08:00 11/18/17 09:10 Nephro-Ken PO 1 tab 0800 JAQUELINE Administration - Patient Studies Lab Studies: Lab Studies 11/18/17 11/18/17 11/18/17 Range/Units 06:24 06:24 00:51 WBC 19.2 H (4.8-10.8) K/uL RBC 2.98 L (4.40-5.90) Mil/uL Hgb 9.8 L (12.0-18.0) g/dL Hct 27.7 L (35.0-51.0) % MCV 92.9 (80.0-94.0) fL MCH 32.7 H (27.0-31.0) pg MCHC 35.2 (33.0-37.0) g/dL RDW 16.7 H (11.5-14.5) % Plt Count 146 (130-400) K/uL MPV 9.4 (7.2-11.7) fL Neut % (Auto) 87.0 H (50.0-75.0) % Lymph % (Auto) 6.0 L (20.0-40.0) % [place] % (Auto) 7.0 (0.0-10.0) % Eos % (Auto) 0.0 (0.0-4.0) % Baso % (Auto) 0.0 (0.0-2.0) % Neut # (Auto) 16.7 H (1.8-7.0) K/uL Lymph # (Auto) 1.2 (1.0-4.3) K/uL [place] # (Auto) 1.3 H (0.0-0.8) K/uL Eos # (Auto) 0.0 (0.0-0.7) K/uL Baso # (Auto) 0.0 (0.0-0.2) K/uL Neutrophils % (Manual) 86 H (50-75) % Band Neutrophils % 1 (0-2) % Lymphocytes % (Manual) 4 L (20-40) % Monocytes % (Manual) 7 (0-10) % Myelocytes % 2 H (0-0) % Platelet Estimate Normal (NORMAL) Poikilocytosis (manual Slight Anisocytosis (manual) Slight Target Cells Moderate Sodium 147 (132-148) mmol/L Potassium 3.3 L (3.6-5.2) mmol/L Chloride 106 (98-107) mmol/L Carbon Dioxide 28 (22-30) mmol/L Anion Gap 16 (10-20) BUN 83 H (9-20) mg/dL Creatinine 4.1 H (0.8-1.5) mg/dL Est GFR ( Amer) 17 Est GFR (Non-Af Amer) 14 POC Glucose (mg/dL) (65-110) mg/dL Random Glucose 133 H (75-110) mg/dL Calcium 7.3 L (8.6-10.4) mg/dl Phosphorus 6.4 H (2.5-4.5) mg/dL Magnesium 2.1 (1.6-2.3) mg/dL Total Bilirubin 22.9 H (0.2-1.3) mg/dL AST 97 H (17-59) U/L ALT 98 H (21-72) U/L Alkaline Phosphatase 216 H (38-126) U/L Total Protein 5.6 L (6.3-8.3) g/dL Albumin 2.6 L (3.5-5.0) g/dL Globulin 2.9 (2.2-3.9) gm/dL Albumin/Globulin Ratio 0.9 L (1.0-2.1) Urine Color Nancy (YELLOW) Urine Clarity Hazy (Clear) Urine pH 5.0 (5.0-8.0) Ur Specific [place] 1.012 (1.003-1.030) Urine Protein Negative (NEGATIVE) mg/dL Urine Glucose (UA) Normal (Normal) mg/dL Urine Ketones Negative (NEGATIVE) mg/dL Urine Blood 2+ H (NEGATIVE) Urine Nitrate Negative (NEGATIVE) Urine Bilirubin 1+ H (NEGATIVE) Urine Urobilinogen 2.0 (0.2-1.0) mg/dL Ur Leukocyte Esterase Neg (Negative) Rhys/uL Urine WBC (Auto) 3 (0-5) /hpf Urine RBC (Auto) 12 H (0-3) /hpf Ur Squamous Epith Cells 1 (0-5) /hpf Urine Bacteria Rare (<OCC) 07/15/18 Range/Units 21:01 WBC (4.8-10.8) K/uL RBC (4.40-5.90) Mil/uL Hgb (12.0-18.0) g/dL Hct (35.0-51.0) % MCV (80.0-94.0) fL MCH (27.0-31.0) pg MCHC (33.0-37.0) g/dL RDW (11.5-14.5) % Plt Count (130-400) K/uL MPV (7.2-11.7) fL Neut % (Auto) (50.0-75.0) % Lymph % (Auto) (20.0-40.0) % [place] % (Auto) (0.0-10.0) % Eos % (Auto) (0.0-4.0) % Baso % (Auto) (0.0-2.0) % Neut # (Auto) (1.8-7.0) K/uL Lymph # (Auto) (1.0-4.3) K/uL [place] # (Auto) (0.0-0.8) K/uL Eos # (Auto) (0.0-0.7) K/uL Baso # (Auto) (0.0-0.2) K/uL Neutrophils % (Manual) (50-75) % Band Neutrophils % (0-2) % Lymphocytes % (Manual) (20-40) % Monocytes % (Manual) (0-10) % Myelocytes % (0-0) % Platelet Estimate (NORMAL) Poikilocytosis (manual Anisocytosis (manual) Target Cells Sodium (132-148) mmol/L Potassium (3.6-5.2) mmol/L Chloride (98-107) mmol/L Carbon Dioxide (22-30) mmol/L Anion Gap (10-20) BUN (9-20) mg/dL Creatinine (0.8-1.5) mg/dL Est GFR ( Amer) Est GFR (Non-Af Amer) POC Glucose (mg/dL) 141 H (65-110) mg/dL Random Glucose (75-110) mg/dL Calcium (8.6-10.4) mg/dl Phosphorus (2.5-4.5) mg/dL Magnesium (1.6-2.3) mg/dL Total Bilirubin (0.2-1.3) mg/dL AST (17-59) U/L ALT (21-72) U/L Alkaline Phosphatase (38-126) U/L Total Protein (6.3-8.3) g/dL Albumin (3.5-5.0) g/dL Globulin (2.2-3.9) gm/dL Albumin/Globulin Ratio (1.0-2.1) Urine Color (YELLOW) Urine Clarity (Clear) Urine pH (5.0-8.0) Ur Specific [place] (1.003-1.030) Urine Protein (NEGATIVE) mg/dL Urine Glucose (UA) (Normal) mg/dL Urine Ketones (NEGATIVE) mg/dL Urine Blood (NEGATIVE) Urine Nitrate (NEGATIVE) Urine Bilirubin (NEGATIVE) Urine Urobilinogen (0.2-1.0) mg/dL Ur Leukocyte Esterase (Negative) Rhys/uL Urine WBC (Auto) (0-5) /hpf Urine RBC (Auto) (0-3) /hpf Ur Squamous Epith Cells (0-5) /hpf Urine Bacteria (<OCC) Laboratory Results - last 24 hr 11/17/17 11/18/17 11/18/17 21:01 00:51 06:24 WBC 19.2 H RBC 2.98 L Hgb 9.8 L Hct 27.7 L MCV 92.9 MCH 32.7 H MCHC 35.2 RDW 16.7 H Plt Count 146 MPV 9.4 Neut % (Auto) 87.0 H Lymph % (Auto) 6.0 L [place] % (Auto) 7.0 Eos % (Auto) 0.0 Baso % (Auto) 0.0 Neut # (Auto) 16.7 H Lymph # (Auto) 1.2 [place] # (Auto) 1.3 H Eos # (Auto) 0.0 Baso # (Auto) 0.0 Neutrophils % (Manual) 86 H Band Neutrophils % 1 Lymphocytes % (Manual) 4 L Monocytes % (Manual) 7 Myelocytes % 2 H Platelet Estimate Normal Poikilocytosis (manual Slight Anisocytosis (manual) Slight Target Cells Moderate Sodium Potassium Chloride Carbon Dioxide Anion Gap BUN Creatinine Est GFR ( Amer) Est GFR (Non-Af Amer) POC Glucose (mg/dL) 141 H Random Glucose Calcium Phosphorus Magnesium Total Bilirubin AST ALT Alkaline Phosphatase Total Protein Albumin Globulin Albumin/Globulin Ratio Urine Color Nancy Urine Clarity Hazy Urine pH 5.0 Ur Specific [place] 1.012 Urine Protein Negative Urine Glucose (UA) Normal Urine Ketones Negative Urine Blood 2+ H Urine Nitrate Negative Urine Bilirubin 1+ H Urine Urobilinogen 2.0 Ur Leukocyte Esterase Neg Urine WBC (Auto) 3 Urine RBC (Auto) 12 H Ur Squamous Epith Cells 1 Urine Bacteria Rare 11/18/17 06:24 WBC RBC Hgb Hct MCV MCH MCHC RDW Plt Count MPV Neut % (Auto) Lymph % (Auto) [place] % (Auto) Eos % (Auto) Baso % (Auto) Neut # (Auto) Lymph # (Auto) [place] # (Auto) Eos # (Auto) Baso # (Auto) Neutrophils % (Manual) Band Neutrophils % Lymphocytes % (Manual) Monocytes % (Manual) Myelocytes % Platelet Estimate Poikilocytosis (manual Anisocytosis (manual) Target Cells Sodium 147 Potassium 3.3 L Chloride 106 Carbon Dioxide 28 Anion Gap 16 BUN 83 H Creatinine 4.1 H Est GFR ( Amer) 17 Est GFR (Non-Af Amer) 14 POC Glucose (mg/dL) Random Glucose 133 H Calcium 7.3 L Phosphorus 6.4 H Magnesium 2.1 Total Bilirubin 22.9 H AST 97 H ALT 98 H Alkaline Phosphatase 216 H Total Protein 5.6 L Albumin 2.6 L Globulin 2.9 Albumin/Globulin Ratio 0.9 L Urine Color Urine Clarity Urine pH Ur Specific [place] Urine Protein Urine Glucose (UA) Urine Ketones Urine Blood Urine Nitrate Urine Bilirubin Urine Urobilinogen Ur Leukocyte Esterase Urine WBC (Auto) Urine RBC (Auto) Ur Squamous Epith Cells Urine Bacteria Fingerstick Blood Sugar Results: 133 Review of Systems - Constitutional Constitutional: absent: Chills - Cardiovascular Cardiovascular: absent: Chest Pain, Palpitations - Respiratory Respiratory: absent: Cough, Dyspnea - Gastrointestinal Gastrointestinal: absent: Abdominal Pain, Nausea - Musculoskeletal Musculoskeletal: Myalgias (right thigh pain w/ movement) Critical Care Progress Note - Nutrition Nutrition: Nutrition Category Date Time Status Renal Diet [DIET] Diets 11/18/17 Breakfast Active Assessment/Plan - Assessment and Plan (Free Text) Assessment: Cardiology: - PMHx of A fib and CHF with EF of 40% on recent echo with global hypokenesis A. A fib - Currently rate controlled A. CHF with EF of 40 % - [place] 43162 - Pt remains hypotensive on vasopressin and solucortef, midodrine Pulmonology - SOB likely 2/2 CHF exacerbation - Currently on [place] GI A. Painless jaundice - T bili improving: - MRCP done at [facility] on 10/31 showed intra and extrahepatic biliary dilation with common bile duct measuring 17 mm in the seth hepatis - Right cholecystostomy and biliary drains placed 11/11 - GI, Dr. Neville consulted. Recommend pt follow up with [facility] for specialist care - Surgery, Dr. Vaughn is consulted - Pt is hypotensive and currently on midodrine, solu-cortef, weaning off vasopressin - Continue meropenem and cipro - Will start pt on liquid diet. - Positive stool occult - Negative hepatitis panel - Macias d/christina Renal A. MACIE on CKD stage IV - BUN/Cr:83/4.1 - HD MWF - RIJ trialysis cath inserted on 11/10/17 - Nephro, Dr. Carolina is consulted Heme/onc -CEA 3.4, CA 19-9 798 - Heme/onc, Dr. Jin is consulted. - GI, Dr. Neville consulted and recommend following up with specialist at [facility] Endo A. Hyperglycemia - No HgbA1c on record. Hyperglycemia likely 2/2 steroids - HgbA1c 5.6 - ISS - Accucheck ID A. Septic shock - WBC count improving 19.2 - Hypotensive on midodrine, solu-cortef, weaning off vasopressin - Repeat blood culture grew Stenotrophomonas Maltophilia. - Currently on Merrem, cipro Prophylaxis - Protonix -heparin 5000sc q8 - SCDs - PT/OT - Date & Time Date: 11/18/17 Time: 18:29
--- NOTE | 2017-11-18 19:18 | CP.PCM.PN ---
Subjective - Date & Time of Evaluation Date of Evaluation: 11/18/17 Time of Evaluation: 03:00 - Subjective Subjective: dictated Objective - Vital Signs/Intake and Output Vital Signs (last 24 hours): Temp Pulse Resp BP Pulse Ox 98.5 F 76 8 L 97/61 L 95 11/18/17 16:00 11/18/17 18:30 11/18/17 18:30 11/18/17 18:00 11/18/17 18:30 Intake and Output: 11/18/17 11/19/17 18:59 06:59 Intake Total 302.2 Output Total 1950 Balance -1647.8 - Medications Medications: Current Medications Calcium Acetate (Phoslo) 1,334 mg PO TIDCC [facility] Last Admin: 11/18/17 17:54 Dose: Not Given Heparin Sodium (Porcine) (Heparin) 5,000 units SC Q8 [facility] Last Admin: 11/18/17 14:58 Dose: 5,000 units Hydrocortisone Sodium Succinate (Solu-Cortef) 50 mg IV Q12H [facility] Last Admin: 11/18/17 10:01 Dose: 50 mg Hydromorphone HCl (Dilaudid) 0.5 mg IVP Q6H PRN PRN Reason: Pain, severe (8-10) Last Admin: 11/18/17 15:15 Dose: 0.5 mg Meropenem 500 mg/ Sodium (Chloride) 100 mls @ 100 mls/hr IVPB QAM [facility] PRN Reason: Protocol Last Admin: 11/18/17 09:10 Dose: 100 mls/hr Vasopressin 40 units/ Dextrose 40 mls @ 2.4 mls/hr IV .[id number] JAQUELINE; 0.04 UNITS/ MIN PRN Reason: Protocol Last Admin: 11/18/17 16:54 Dose: 0.04 units/min, 2.4 mls/hr Ciprofloxacin (Cipro 400mg/200ml Dsw) 400 mg in 200 mls @ 133 mls/hr IVPB Q24H JAQUELINE PRN Reason: Protocol Last Admin: 11/18/17 14:58 Dose: 133 mls/hr Insulin Aspart (Novolog) 0 unit SC ACHS JAQUELINE PRN Reason: Protocol Last Admin: 11/18/17 16:30 Dose: Not Given Midodrine (Proamatine) 2.5 mg PO TID [facility] Last Admin: 11/18/17 17:05 Dose: 2.5 mg Ondansetron HCl (Zofran Inj) 4 mg IVP Q6 PRN PRN Reason: Nausea/Vomiting Last Admin: 11/17/17 06:00 Dose: 4 mg Pantoprazole Sodium (Protonix Ec Tab) 40 mg PO DAILY [facility] Vitamin B Complex/Vit C/Folic Acid (Nephro-Ken) 1 tab PO 0800 [facility] Last Admin: 11/18/17 09:10 Dose: 1 tab - Labs Labs: 11/18/17 06:24 11/18/17 06:24 PT 14.6 SECONDS (9.7-12.2) H 11/15/17 06:32 INR 1.3 11/15/17 06:32 APTT 30 SECONDS (21-34) 11/15/17 06:32
--- NOTE | 2017-11-18 22:30 | CP.PCM.PN ---
Subjective - Date & Time of Evaluation Date of Evaluation: 11/18/17 Time of Evaluation: 07:45 - Subjective Subjective: Awake jaundice NAD still on pressors albeit minimal dose Discussed with Dr Neville - No ERCP Objective - Vital Signs/Intake and Output Vital Signs (last 24 hours): Temp Pulse Resp BP Pulse Ox 97.4 F L 86 16 115/80 94 L 11/18/17 20:00 11/18/17 21:00 11/18/17 21:00 11/18/17 21:00 11/18/17 21:00 Intake and Output: 11/18/17 11/19/17 18:59 06:59 Intake Total 302.2 244.8 Output Total 1950 1150 Balance -1647.8 -905.2 - Medications Medications: Current Medications Calcium Acetate (Phoslo) 1,334 mg PO TIDCC [facility] Last Admin: 11/18/17 17:54 Dose: Not Given Heparin Sodium (Porcine) (Heparin) 5,000 units SC Q8 [facility] Last Admin: 11/18/17 22:07 Dose: 5,000 units Hydrocortisone Sodium Succinate (Solu-Cortef) 50 mg IV Q12H [facility] Last Admin: 11/18/17 22:07 Dose: 50 mg Hydromorphone HCl (Dilaudid) 0.5 mg IVP Q6H PRN PRN Reason: Pain, severe (8-10) Last Admin: 11/18/17 15:15 Dose: 0.5 mg Meropenem 500 mg/ Sodium (Chloride) 100 mls @ 100 mls/hr IVPB QAM [facility] PRN Reason: Protocol Last Admin: 11/18/17 09:10 Dose: 100 mls/hr Vasopressin 40 units/ Dextrose 40 mls @ 2.4 mls/hr IV .[id number] JAQUELINE; 0.04 UNITS/ MIN PRN Reason: Protocol Last Admin: 11/18/17 16:54 Dose: 0.04 units/min, 2.4 mls/hr Ciprofloxacin (Cipro 400mg/200ml Dsw) 400 mg in 200 mls @ 133 mls/hr IVPB Q24H [facility] PRN Reason: Protocol Last Admin: 11/18/17 14:58 Dose: 133 mls/hr Insulin Aspart (Novolog) 0 unit SC ACHS [facility] PRN Reason: Protocol Last Admin: 11/18/17 22:08 Dose: Not Given Midodrine (Proamatine) 2.5 mg PO TID [facility] Last Admin: 11/18/17 17:05 Dose: 2.5 mg Ondansetron HCl (Zofran Inj) 4 mg IVP Q6 PRN PRN Reason: Nausea/Vomiting Last Admin: 11/17/17 06:00 Dose: 4 mg Pantoprazole Sodium (Protonix Ec Tab) 40 mg PO DAILY [facility] Vitamin B Complex/Vit C/Folic Acid (Nephro-Ken) 1 tab PO 0800 [facility] Last Admin: 11/18/17 09:10 Dose: 1 tab - Labs Labs: 11/18/17 06:24 11/18/17 06:24 PT 14.6 SECONDS (9.7-12.2) H 11/15/17 06:32 INR 1.3 11/15/17 06:32 APTT 30 SECONDS (21-34) 11/15/17 06:32 - Constitutional Appears: Non-toxic - Head Exam Head Exam: NORMAL INSPECTION - Eye Exam Eye Exam: absent: Scleral icterus - ENT Exam ENT Exam: Mucous Membranes Moist - Neck Exam Neck Exam: Full ROM - Respiratory Exam Respiratory Exam: Decreased Breath Sounds - Cardiovascular Exam Cardiovascular Exam: Irregular Rhythm - GI/Abdominal Exam GI & Abdominal Exam: Soft - Exam External exam: NORMAL EXTERNAL EXAM - Extremities Exam Extremities Exam: Pedal Edema - Neurological Exam Neurological Exam: Alert Assessment and Plan - Assessment and Plan (Free Text) Assessment: Septic shock 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
--- NOTE | 2017-11-19 00:24 | PN ---
DATE: 11/18/2017 INFECTIOUS DISEASE FOLLOWUP SUBJECTIVE: The patient was awake and alert. He was trying to eat. He said he also made some urine. He looked comfortable. He is afebrile. PHYSICAL EXAMINATION: VITAL SIGNS: His temperature was 98.5, pulse 76, respirations 9, blood pressure 97/61, and saturation was 95%. GENERAL: He was comfortable. HEENT: Eyes icteric. NECK: Supple. He has a dialysis catheter. LUNGS: Clear. No wheezing. No rhonchi. HEART: S1 and S2. Atrial fibrillation. ABDOMEN: He has cholecystotomy tube with a ALEN drain and is flabby, nontender. EXTREMITIES: Remain with Venodyne boots at this time. LABORATORY DATA: White count is 19.2, hemoglobin 9.8, hematocrit 27.7, platelet count is 146. I find he is also on steroids, but I have ordered a bile culture again. His potassium remains low at 3.3 and total bilirubin is down to 22.9, and LFTs still remains elevated. MEDICATIONS: He is on Cipro, heparin. He is on hydrocortisone every 12 hours. He is on meropenem once a day and Cipro once a day. Because of renal insufficiency, he still remains on vasopressin and he is on folic acid. Once he comes off his vasopressin, I am waiting for the culture reports and then we will decide about the antibiotics, and he has cholecystotomy tube and he is on dialysis, came in with septic shock and with obstructive jaundice; and he has chronic atrial fibrillation. Stephania Abdi MD
[2017-11-19] MEDS: HYDROmorphone 0.5 mg/0.5 ml ISec IVP PRN ×4 (01:00→18:27)
[2017-11-19] MEDS: Vasopressin 40 UNITS in Dextrose 5% In Water 38 ML IV SCH ×3 (02:51→22:15)
[2017-11-19 06:30] LABS: HEMOGLOBIN 9.7 g/dL (12.0-18.0); MEAN CORPUSCULAR HGB CONC 35.4 g/dL (33.0-37.0); MEAN PLATELET VOLUME 9.5 fL (7.2-11.7); PLATELET COUNT 146 K/uL (130-400); RBC 2.96 Mil/uL (4.40-5.90); RED CELL DISTRIBUTION WIDTH 16.4 % (11.5-14.5); WHITE BLOOD COUNT 19.5 K/uL (4.8-10.8)
[2017-11-19 06:37] LABS: CALCIUM 7.4 mg/dl (8.6-10.4)
[2017-11-19 06:40] LABS: ALB/GLOB RATIO 0.9 (1.0-2.1); ALBUMIN 2.7 g/dL (3.5-5.0)
[2017-11-19] MEDS ORDERED: Potassium Chloride 20 mEq ER Tab PO ONE (08:07)
[2017-11-19 08:45] LABS: LYMPH # 0.8 K/uL (1.0-4.3); MONO # 1.1 K/uL (0.0-0.8); NEUT # 17.5 K/uL (1.8-7.0)
[2017-11-19 08:46] LABS: BANDS 3 % (0-2); LYMPHOCYTE 4 % (20-40); MONOCYTE 6 % (0-10); MYELOCYTE 2 % (0-0); NEUTROPHIL 85 % (50-75); PLATELET ESTIMATE NORMAL (NORMAL); TOTAL CELLS COUNTED 100
[2017-11-19 08:47] LABS: ANISOCYTOSIS SLIGHT; TARGET CELLS MODERATE
[2017-11-19] MEDS: (Novolog) Insulin Aspart, Recombinant 100 u/ml 10 ml vial SC SCH ×4 (08:55→21:32)
[2017-11-19] MEDS: Multivitamin Vitamin B Complex (Nephro-Vite) Tab PO SCH (08:56)
[2017-11-19] MEDS: Meropenem 500 MG in Sodium Chloride 0.9% 100 ML IVPB SCH (09:33)
[2017-11-19] MEDS: Pantoprazole 40 mg EC Tab PO SCH (09:33)
--- NOTE | 2017-11-19 12:04 | CP.PCM.PN ---
Subjective - Date & Time of Evaluation Date of Evaluation: 11/19/17 Time of Evaluation: 12:03 - Subjective Subjective: Nephrology Consultation Note Assessment: critical oligoanuric MACIE likely due to ATN due to shock with ? sepsis ? bile cast nephropathy. other possible causes may include hepato-renal, recent IV contrast exposure: started HD 11/11/17: [facility], hypokalemia and hypernatremia obstructive jaundice ? possible cause as pancreatic mass/cholangicarcinoma HTN, CHF, A fib, morbd obesity moderate TR left 2 cm adrenal adenoma hyperphosphatemia Anemia s/p cholecystotomy tube Plan UOP better and BUN/cr stable. Hence, no acute need for dialysis today. last HD done 11/15/17. continue to monitor for spontaneous renal recovery. If renal function remains stable tomorrow, can consider to d/c dialysis catheter from renal perspective. maintain hemodynamics stable. avoid hypotension monitor I/O daily weights and renal function with BMP added phoslo, continue same GI, ID, heme/onc following plan for ERCP once stable. pt may be a possible transfer to tertiary care center dose of KCL today 20 meq. encourage free water intake work up for adrenal adenoma later as outpt once stable Dose meds/antibiotics for reduced GFR. Avoid fleets enema/magnesium based laxatives. Avoid nephrotoxins/NSAIDs/ iodinated contrast (unless needed emergently) Glycemic control, Further work up for as per primary team. Thanks for allowing me to participate in care of your patient. will follow with you. Please call if any Qs. had d/w family and team Dr Jairo [place] Office: [phone] reason for consult: MACIE HPI: Pt is a 77 y/o M with hx of HTN, CHF, A fib, morbd obesity recently diagnosed with jaundice and undergoing work up for it, so far suggestive of pancreatic mass, admitted to [facility] with MACIE, decreased urine output and rise in bili, he was found to have hypotension prior to ERCP hence was transferred to [facility]. Pt had dialysis catheter placed and transferred to [facility] for dialysis initiation renal consult for MACIE management. pt feels ill and tired. has decresaed appetite. no aware about kidney disease in past says not making much urine no OTC/nsaids/herba meds CT with contrast done 10/30 evening. cr 6/28 AM 1.0 low BP noted, pt requiring pressors ROS: he denies SOB/chest pain/nausea/vomitting. rest all other neg except as mentioned in HPI siu removed. he feels tired and weak Physical Examination: General Appearance: Comfortable, co-operative. no acute distress Vitals reviewed and noted as below Head; Atraumatic, normocephalic ENT: no ulcers no thrush. Tongue is midline/moist. Oropharynx: no rash or ulcers. EYES: Pupils are equal, round and reactive to light accommodation. Eye muscles and extraocular movement intact. Sclera is icteric. Neck; supple no lymphadenopathy, no thyromegaly or bruit Lungs: normal respiratory rate/effort. Breath sounds appears clear b/l anteriorly Heart: Normal rate. s1s2 normal. No rub or gallop. Extremities: no edema. No varicose veins Neurological: Patient is alert, awake, oriented x 3 follows commands, no focal deifict. Skin: dry and warm. Normal turgor. No rash. Palpitation: Normal elasticity for age. grossly yellow Abdomen: Abdomen is soft non tender no apparent organomegaly Psych: normal insight. has normal affect and mood MSK: no specific joint tenderness or swelling. Digits and nails normal, no deformity : kidney not palpable. bladder not distended . access: [facility] Labs/imaging/EKG reviewed. Past medical history, past surgical history, social history, allergy reviewed and noted as below Family hx; no hx of CKD. rest non contributory work up: left adrenal 2 cm adenoma moderate TR and mildly reduced LVEF UA 100 prot and GNR Bilirubin 36 initially now down trending Objective - Vital Signs/Intake and Output Vital Signs (last 24 hours): Temp Pulse Resp BP Pulse Ox 97.4 F L 82 9 L 91/62 L 95 11/18/17 20:00 11/19/17 11:31 11/19/17 11:31 11/19/17 11:31 11/19/17 11:31 Intake and Output: 11/19/17 11/19/17 06:59 18:59 Intake Total 558.8 9.6 Output Total 1600 200 Balance -1041.2 -190.4 - Medications Medications: Current Medications Calcium Acetate (Phoslo) 1,334 mg PO TIDCC [facility] Last Admin: 11/19/17 08:57 Dose: 1,334 mg Heparin Sodium (Porcine) (Heparin) 5,000 units SC Q8 [facility] Last Admin: 11/19/17 05:56 Dose: 5,000 units Hydrocortisone Sodium Succinate (Solu-Cortef) 50 mg IV Q12H [facility] Last Admin: 11/19/17 09:32 Dose: 50 mg Hydromorphone HCl (Dilaudid) 0.5 mg IVP Q4H PRN PRN Reason: Pain, severe (8-10) Meropenem 500 mg/ Sodium (Chloride) 100 mls @ 100 mls/hr IVPB QAM [facility] PRN Reason: Protocol Last Admin: 11/19/17 09:33 Dose: 100 mls/hr Vasopressin 40 units/ Dextrose 40 mls @ 2.4 mls/hr IV .[id number] [facility]; 0.04 UNITS/ MIN PRN Reason: Protocol Last Admin: 11/19/17 05:16 Dose: Not Given Ciprofloxacin (Cipro 400mg/200ml Dsw) 400 mg in 200 mls @ 133 mls/hr IVPB Q24H [facility] PRN Reason: Protocol Last Admin: 11/18/17 14:58 Dose: 133 mls/hr Insulin Aspart (Novolog) 0 unit SC ACHS [facility] PRN Reason: Protocol Last Admin: 11/19/17 08:55 Dose: 1 unit Midodrine (Proamatine) 2.5 mg PO TID [facility] Last Admin: 11/19/17 09:33 Dose: 2.5 mg Ondansetron HCl (Zofran Inj) 4 mg IVP Q6 PRN PRN Reason: Nausea/Vomiting Last Admin: 11/17/17 06:00 Dose: 4 mg Pantoprazole Sodium (Protonix Ec Tab) 40 mg PO DAILY [facility] Last Admin: 11/19/17 09:33 Dose: 40 mg Vitamin B Complex/Vit C/Folic Acid (Nephro-Ken) 1 tab PO 0800 [facility] Last Admin: 11/19/17 08:56 Dose: 1 tab - Labs Labs: 11/19/17 06:17 11/19/17 06:16 PT 14.6 SECONDS (9.7-12.2) H 11/15/17 06:32 INR 1.3 11/15/17 06:32 APTT 30 SECONDS (21-34) 11/15/17 06:32
--- NOTE | 2017-11-19 13:00 | CP.PCM.PN ---
Subjective - Date & Time of Evaluation Date of Evaluation: 11/19/17 Time of Evaluation: 01:00 - Subjective Subjective: dictated Objective - Vital Signs/Intake and Output Vital Signs (last 24 hours): Temp Pulse Resp BP Pulse Ox 97.4 F L 82 9 L 91/62 L 95 11/18/17 20:00 11/19/17 11:31 11/19/17 11:31 11/19/17 11:31 11/19/17 11:31 Intake and Output: 11/19/17 11/19/17 06:59 18:59 Intake Total 558.8 19.6 Output Total 1600 200 Balance -1041.2 -180.4 - Medications Medications: Current Medications Calcium Acetate (Phoslo) 1,334 mg PO TIDCC [facility] Last Admin: 11/19/17 12:14 Dose: 1,334 mg Heparin Sodium (Porcine) (Heparin) 5,000 units SC Q8 [facility] Last Admin: 11/19/17 05:56 Dose: 5,000 units Hydrocortisone Sodium Succinate (Solu-Cortef) 50 mg IV Q12H [facility] Last Admin: 11/19/17 09:32 Dose: 50 mg Hydromorphone HCl (Dilaudid) 0.5 mg IVP Q4H PRN PRN Reason: Pain, severe (8-10) Vasopressin 40 units/ Dextrose 40 mls @ 2.4 mls/hr IV .[id number] [facility]; 0.04 UNITS/ MIN PRN Reason: Protocol Last Titration: 11/19/17 10:11 Dose: 0.03 units/min, 1.8 mls/hr Ciprofloxacin (Cipro 400mg/200ml Dsw) 400 mg in 200 mls @ 133 mls/hr IVPB Q24H [facility] PRN Reason: Protocol Last Admin: 11/18/17 14:58 Dose: 133 mls/hr Insulin Aspart (Novolog) 0 unit SC ACHS [facility] PRN Reason: Protocol Last Admin: 11/19/17 08:55 Dose: 1 unit Midodrine (Proamatine) 2.5 mg PO TID [facility] Last Admin: 11/19/17 09:33 Dose: 2.5 mg Ondansetron HCl (Zofran Inj) 4 mg IVP Q6 PRN PRN Reason: Nausea/Vomiting Last Admin: 11/17/17 06:00 Dose: 4 mg Pantoprazole Sodium (Protonix Ec Tab) 40 mg PO DAILY [facility] Last Admin: 11/19/17 09:33 Dose: 40 mg Vitamin B Complex/Vit C/Folic Acid (Nephro-Ken) 1 tab PO 0800 [facility] Last Admin: 11/19/17 08:56 Dose: 1 tab - Labs Labs: 11/19/17 06:17 11/19/17 06:16 PT 14.6 SECONDS (9.7-12.2) H 11/15/17 06:32 INR 1.3 11/15/17 06:32 APTT 30 SECONDS (21-34) 11/15/17 06:32
--- NOTE | 2017-11-19 13:14 | CP.PCM.PN ---
Subjective - Date & Time of Evaluation Date of Evaluation: 11/19/17 Time of Evaluation: 08:25 - Subjective Subjective: GI Fellow PGY4, Progress note. Patient seen and examined at bedside. He is tolerating diet. Biliary drain working well and wound care consulted. Denies n/v/d, abdominal pain. He is frustrated that things are not moving forward as quickly as he would like. 12pt ROS completed and negative except for above. Objective - Vital Signs/Intake and Output Vital Signs (last 24 hours): Temp Pulse Resp BP Pulse Ox 97.4 F L 82 9 L 91/62 L 95 11/18/17 20:00 11/19/17 11:31 11/19/17 11:31 11/19/17 11:31 11/19/17 11:31 Intake and Output: 11/19/17 11/19/17 06:59 18:59 Intake Total 558.8 19.6 Output Total 1600 200 Balance -1041.2 -180.4 - Medications Medications: Current Medications Calcium Acetate (Phoslo) 1,334 mg PO TIDCC [facility] Last Admin: 11/19/17 12:14 Dose: 1,334 mg Heparin Sodium (Porcine) (Heparin) 5,000 units SC Q8 [facility] Last Admin: 11/19/17 05:56 Dose: 5,000 units Hydrocortisone Sodium Succinate (Solu-Cortef) 50 mg IV Q12H [facility] Last Admin: 11/19/17 09:32 Dose: 50 mg Hydromorphone HCl (Dilaudid) 0.5 mg IVP Q4H PRN PRN Reason: Pain, severe (8-10) Vasopressin 40 units/ Dextrose 40 mls @ 2.4 mls/hr IV .[id number] [facility]; 0.04 UNITS/ MIN PRN Reason: Protocol Last Titration: 11/19/17 10:11 Dose: 0.03 units/min, 1.8 mls/hr Ciprofloxacin (Cipro 400mg/200ml Dsw) 400 mg in 200 mls @ 133 mls/hr IVPB Q24H [facility] PRN Reason: Protocol Last Admin: 11/18/17 14:58 Dose: 133 mls/hr Insulin Aspart (Novolog) 0 unit SC ACHS [facility] PRN Reason: Protocol Last Admin: 11/19/17 08:55 Dose: 1 unit Midodrine (Proamatine) 2.5 mg PO TID [facility] Last Admin: 11/19/17 09:33 Dose: 2.5 mg Ondansetron HCl (Zofran Inj) 4 mg IVP Q6 PRN PRN Reason: Nausea/Vomiting Last Admin: 11/17/17 06:00 Dose: 4 mg Pantoprazole Sodium (Protonix Ec Tab) 40 mg PO DAILY [facility] Last Admin: 11/19/17 09:33 Dose: 40 mg Vitamin B Complex/Vit C/Folic Acid (Nephro-Ken) 1 tab PO 0800 [facility] Last Admin: 11/19/17 08:56 Dose: 1 tab - Labs Labs: 11/19/17 06:17 11/19/17 06:16 PT 14.6 SECONDS (9.7-12.2) H 11/15/17 06:32 INR 1.3 11/15/17 06:32 APTT 30 SECONDS (21-34) 11/15/17 06:32 - Constitutional Appears: Well, No Acute Distress, Chronically Ill - Head Exam Head Exam: ATRAUMATIC, NORMAL INSPECTION, NORMOCEPHALIC - Eye Exam Eye Exam: EOMI, PERRL, Scleral icterus - ENT Exam ENT Exam: Mucous Membranes Moist, Normal Exam - Respiratory Exam Respiratory Exam: Clear to Ausculation Bilateral, NORMAL BREATHING PATTERN. absent: Wheezes - Cardiovascular Exam Cardiovascular Exam: REGULAR RHYTHM, +S1, +S2 - GI/Abdominal Exam GI & Abdominal Exam: Soft, Normal Bowel Sounds. absent: Tenderness Additional comments: Biliary drain in place. - Extremities Exam Extremities Exam: Normal Inspection. absent: Full ROM, Pedal Edema Additional comments: Sacral edema present - Neurological Exam Neurological Exam: Alert, Awake, Oriented x3 - Psychiatric Exam Psychiatric exam: Normal Affect, Normal Mood - Skin Skin Exam: Dry, Intact Additional comments: Jaundice present Assessment and Plan - Assessment and Plan (Free Text) Assessment: 77yo WM with hx of sytolic CHF, AFIB, recent GI bleed, and presenting with obstructive jaundice, HoTN, septic shock concerning for acute cholangitis and imaging findings concerning for cholangiocarcinoma. 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 -S/P PTC and drain 11/11/17 -PTC revealed: "Cholangiogram showed common hepatic mass extending into right hepatic duct". I discussed result with IR and concerned for cholangiocarcinoma. -Extracutaneous biliary leak per surgical team, wound care -Continue to monitor microbio. + Stenotrophomonas Maltophilia. Sensitive to cipro. Continue abx management per ID. -Agree with IV ppi for recent GI bleed and high risk for stress ulcer. As pressors weaned off, can change to PO. -PENDING labs: anti-smooth muscle. Anti-mitochondrial negative. -CA19-9, CEA significantly elevated, concerning for malignancy. -May consider brush biopsy via biliary drain. -We have contacted [facility] for transfer as he may need specialized procedures. Revisit transfer when off IV vasopressor support. -ERCP when medically stable. ?tomorrow. NPO past midnight. -Further management pending clinical progress. We will continue to monitor patient course.
--- NOTE | 2017-11-19 14:41 | CP.CCUPN ---
<WagnerJennie - Last Filed: 11/19/17 14:51> CCU Subjective - Physician Review Subjective (Free Text): 77 yo M w/ PMHx of HTN, A. Fib, CHF, admitted for painless jaundice(Tbil 37.6) and MACIE from [place], in need of emergent HD. Complains of weakness, and isolated episode of nausea, pruritus improving. Pt denies SOB, chest pain, palpitations, abdominal pain, vomiting, fever, chills. Patient to be transferred to [facility] pending GI. No acute events overnight, pt is anxious to know about future transfer plans 11/19/17 14:37 CCU Objective - Vital Signs / Intake & Output Vital Signs (Last 4 hours): Vital Signs Pulse Resp BP Pulse Ox 11/19/17 11:31 82 9 L 91/62 L 95 11/19/17 11:01 82 16 89/54 L 95 11/19/17 11:00 77 11 L 94 L Intake and Output (Last 8hrs): Intake & Output 11/18/17 11/19/17 11/19/17 22:59 06:59 14:59 Intake Total 535.2 309.2 19.6 Output Total 2700 450 200 Balance -2164.8 -140.8 -180.4 Weight 295 lb Intake: IV 36 40 10 Intake, IV Amount 19.2 19.2 9.6 Right IJ trialysis cath 19.2 19.2 9.6 Oral 480 250 0 Output: Drainage 900 200 R lower cholecystostomy 900 50 Right upper biliary rain 150 Urine 1800 450 0 Urine, Voided 1800 450 0 Other: # Bowel Movements 0 0 0 - Physical Exam Head: Positive for: Atraumatic, Normocephalic Extroacular Muscles: Positive for: EOMI Conjunctiva: Positive for: Icteric Mouth: Positive for: Moist Mucous Membranes Respiratory/Chest: Positive for: Clear to Auscultation, Good Air Exchange. Negative for: Respiratory Distress, Accessory Muscle Use, Wheezes, Rales, Rhonchi Cardiovascular: Positive for: Regular Rate and Rhythm, Normal S1, S2 Abdomen: Positive for: Normal Bowel Sounds. Negative for: Tenderness, Distention, Peritoneal Signs, Guarding, Mass/Organomegaly Lower Extremity: Positive for: Edema (2+ B/L ). Negative for: CALF TENDERNESS Neurological: Positive for: GCS=15, Speech Normal, Memory Normal Skin: Positive for: Other (Jaundinced) Psychiatric: Positive for: Alert, Oriented x 3, Normal Insight, Normal Concentration - Medications Active Medications: Active Medications Generic Name Dose Route Start Last Admin Trade Name Freq PRN Reason Stop Dose Admin Calcium Acetate 1,334 mg 11/11/17 12:00 11/19/17 12:14 Phoslo PO 1,334 mg TIDCC JAQUELINE Administration Heparin Sodium (Porcine) 5,000 units 11/14/17 17:45 11/19/17 13:34 Heparin SC 5,000 units Q8 JAQUELINE Administration Hydrocortisone Sodium Succinate 50 mg 11/16/17 22:00 11/19/17 09:32 Solu-Cortef IV 50 mg Q12H JAQUELINE Administration Hydromorphone HCl 0.5 mg 11/19/17 10:46 Dilaudid IVP Q4H PRN Pain, severe (8-10) Vasopressin 40 units/ Dextrose 40 mls @ 2.4 mls/hr 11/10/17 21:30 11/19/17 10 :11 IV 0.03 units/min .[id number] JAQUELINE 1.8 mls/hr Protocol Titration 0.04 UNITS/MIN Ciprofloxacin 400 mg in 200 mls @ 133 mls/hr 11/14/17 15:30 11/18/17 14:58 Cipro 400mg/200ml Dsw IVPB 133 mls/hr Q24H JAQUELINE Administration Protocol Insulin Aspart 0 unit 11/17/17 16:30 11/19/17 12:34 Novolog SC 2 unit ACHS JAQUELINE Administration Protocol Midodrine 2.5 mg 11/18/17 10:00 11/19/17 13:34 Proamatine PO 2.5 mg TID JAQUELINE Administration Ondansetron HCl 4 mg 11/11/17 16:49 11/17/17 06:00 Zofran Inj IVP 4 mg Q6 PRN Administration Nausea/Vomiting Pantoprazole Sodium 40 mg 11/19/17 10:00 11/19/17 09:33 Protonix Ec Tab PO 40 mg DAILY JAQUELINE Administration Vitamin B Complex/Vit C/Folic Acid 1 tab 11/12/17 08:00 11/19/17 08:56 Nephro-Ken PO 1 tab 0800 JAQUELINE Administration - Patient Studies Lab Studies: Microbiology Studies 11/18/17 00:51 Urine Culture - Final Urine No Growth (<1,000 CFU/ML) 11/18/17 06:37 Blood Culture - Preliminary Blood-Thru Central Line NO GROWTH AFTER 24 HOURS 11/18/17 06:37 Blood Culture - Preliminary Blood-Thru Central Line NO GROWTH AFTER 24 HOURS Lab Studies 11/19/17 11/19/17 11/19/17 Range/Units 11:28 07:11 06:17 WBC 19.5 H (4.8-10.8) K/uL RBC 2.96 L (4.40-5.90) Mil/uL Hgb 9.7 L (12.0-18.0) g/dL Hct 27.5 L (35.0-51.0) % MCV 93.0 (80.0-94.0) fL MCH 33.0 H (27.0-31.0) pg MCHC 35.4 (33.0-37.0) g/dL RDW 16.4 H (11.5-14.5) % Plt Count 146 (130-400) K/uL MPV 9.5 (7.2-11.7) fL Neut % (Auto) 90.0 H (50.0-75.0) % Lymph % (Auto) 4.0 L (20.0-40.0) % [place] % (Auto) 6.0 (0.0-10.0) % Eos % (Auto) 0.0 (0.0-4.0) % Baso % (Auto) 0.0 (0.0-2.0) % Neut # (Auto) 17.5 H (1.8-7.0) K/uL Lymph # (Auto) 0.8 L (1.0-4.3) K/uL [place] # (Auto) 1.1 H (0.0-0.8) K/uL Eos # (Auto) 0.0 (0.0-0.7) K/uL Baso # (Auto) 0.0 (0.0-0.2) K/uL Neutrophils % (Manual) 85 H (50-75) % Band Neutrophils % 3 H (0-2) % Lymphocytes % (Manual) 4 L (20-40) % Monocytes % (Manual) 6 (0-10) % Myelocytes % 2 H (0-0) % Platelet Estimate Normal (NORMAL) Anisocytosis (manual) Slight Target Cells Moderate Sodium (132-148) mmol/L Potassium (3.6-5.2) mmol/L Chloride (98-107) mmol/L Carbon Dioxide (22-30) mmol/L Anion Gap (10-20) BUN (9-20) mg/dL Creatinine (0.8-1.5) mg/dL Est GFR ( Amer) Est GFR (Non-Af Amer) POC Glucose (mg/dL) 217 H 159 H (65-110) mg/dL Random Glucose (75-110) mg/dL Calcium (8.6-10.4) mg/dl Phosphorus (2.5-4.5) mg/dL Magnesium (1.6-2.3) mg/dL Total Bilirubin (0.2-1.3) mg/dL AST (17-59) U/L ALT (21-72) U/L Alkaline Phosphatase (38-126) U/L Total Protein (6.3-8.3) g/dL Albumin (3.5-5.0) g/dL Globulin (2.2-3.9) gm/dL Albumin/Globulin Ratio (1.0-2.1) 11/19/17 11/18/17 11/18/17 Range/Units 06:16 21:15 16:09 WBC (4.8-10.8) K/uL RBC (4.40-5.90) Mil/uL Hgb (12.0-18.0) g/dL Hct (35.0-51.0) % MCV (80.0-94.0) fL MCH (27.0-31.0) pg MCHC (33.0-37.0) g/dL RDW (11.5-14.5) % Plt Count (130-400) K/uL MPV (7.2-11.7) fL Neut % (Auto) (50.0-75.0) % Lymph % (Auto) (20.0-40.0) % [place] % (Auto) (0.0-10.0) % Eos % (Auto) (0.0-4.0) % Baso % (Auto) (0.0-2.0) % Neut # (Auto) (1.8-7.0) K/uL Lymph # (Auto) (1.0-4.3) K/uL [place] # (Auto) (0.0-0.8) K/uL Eos # (Auto) (0.0-0.7) K/uL Baso # (Auto) (0.0-0.2) K/uL Neutrophils % (Manual) (50-75) % Band Neutrophils % (0-2) % Lymphocytes % (Manual) (20-40) % Monocytes % (Manual) (0-10) % Myelocytes % (0-0) % Platelet Estimate (NORMAL) Anisocytosis (manual) Target Cells Sodium 146 (132-148) mmol/L Potassium 3.2 L (3.6-5.2) mmol/L Chloride 106 (98-107) mmol/L Carbon Dioxide 27 (22-30) mmol/L Anion Gap 17 (10-20) BUN 88 H (9-20) mg/dL Creatinine 3.9 H (0.8-1.5) mg/dL Est GFR ( Amer) 18 Est GFR (Non-Af Amer) 15 POC Glucose (mg/dL) 164 H 200 H (65-110) mg/dL Random Glucose 148 H (75-110) mg/dL Calcium 7.4 L (8.6-10.4) mg/dl Phosphorus 5.8 H (2.5-4.5) mg/dL Magnesium 2.0 (1.6-2.3) mg/dL Total Bilirubin 25.1 H (0.2-1.3) mg/dL AST 105 H (17-59) U/L ALT 109 H (21-72) U/L Alkaline Phosphatase 206 H (38-126) U/L Total Protein 5.8 L (6.3-8.3) g/dL Albumin 2.7 L (3.5-5.0) g/dL Globulin 3.1 (2.2-3.9) gm/dL Albumin/Globulin Ratio 0.9 L (1.0-2.1) Laboratory Results - last 24 hr 11/18/17 11/18/17 11/19/17 16:09 21:15 06:16 WBC RBC Hgb Hct MCV MCH MCHC RDW Plt Count MPV Neut % (Auto) Lymph % (Auto) [place] % (Auto) Eos % (Auto) Baso % (Auto) Neut # (Auto) Lymph # (Auto) [place] # (Auto) Eos # (Auto) Baso # (Auto) Neutrophils % (Manual) Band Neutrophils % Lymphocytes % (Manual) Monocytes % (Manual) Myelocytes % Platelet Estimate Anisocytosis (manual) Target Cells Sodium 146 Potassium 3.2 L Chloride 106 Carbon Dioxide 27 Anion Gap 17 BUN 88 H Creatinine 3.9 H Est GFR ( Amer) 18 Est GFR (Non-Af Amer) 15 POC Glucose (mg/dL) 200 H 164 H Random Glucose 148 H Calcium 7.4 L Phosphorus 5.8 H Magnesium 2.0 Total Bilirubin 25.1 H AST 105 H ALT 109 H Alkaline Phosphatase 206 H Total Protein 5.8 L Albumin 2.7 L Globulin 3.1 Albumin/Globulin Ratio 0.9 L 11/19/17 11/19/17 11/19/17 06:17 07:11 11:28 WBC 19.5 H RBC 2.96 L Hgb 9.7 L Hct 27.5 L MCV 93.0 MCH 33.0 H MCHC 35.4 RDW 16.4 H Plt Count 146 MPV 9.5 Neut % (Auto) 90.0 H Lymph % (Auto) 4.0 L [place] % (Auto) 6.0 Eos % (Auto) 0.0 Baso % (Auto) 0.0 Neut # (Auto) 17.5 H Lymph # (Auto) 0.8 L [place] # (Auto) 1.1 H Eos # (Auto) 0.0 Baso # (Auto) 0.0 Neutrophils % (Manual) 85 H Band Neutrophils % 3 H Lymphocytes % (Manual) 4 L Monocytes % (Manual) 6 Myelocytes % 2 H Platelet Estimate Normal Anisocytosis (manual) Slight Target Cells Moderate Sodium Potassium Chloride Carbon Dioxide Anion Gap BUN Creatinine Est GFR ( Amer) Est GFR (Non-Af Amer) POC Glucose (mg/dL) 159 H 217 H Random Glucose Calcium Phosphorus Magnesium Total Bilirubin AST ALT Alkaline Phosphatase Total Protein Albumin Globulin Albumin/Globulin Ratio Fingerstick Blood Sugar Results: 217 Review of Systems - Constitutional Constitutional: absent: Chills, Sweats - EENT Nose/Mouth/Throat: Bleeding Gums - Cardiovascular Cardiovascular: Edema. absent: Chest Pain, Diaphoresis, Dyspnea - Respiratory Respiratory: absent: Cough, Dyspnea - Gastrointestinal Gastrointestinal: absent: Abdominal Pain - Musculoskeletal Musculoskeletal: Other (right lateral thigh pain) Critical Care Progress Note - Nutrition Nutrition: Nutrition Category Date Time Status Renal Diet [DIET] Diets 11/18/17 Breakfast Active Assessment/Plan - Assessment and Plan (Free Text) Assessment: Cardiology: - PMHx of A fib and CHF with EF of 40% on recent echo with global hypokenesis A. A fib - Currently rate controlled A. CHF with EF of 40 % - [place] [id number] - Pt remains hypotensive on vasopressin and solucortef, midodrine Pulmonology - SOB likely 2/2 CHF exacerbation - Currently on NC GI A. Painless jaundice - T bili improving: - MRCP done at [place] on 10/31 showed intra and extrahepatic biliary dilation with common bile duct measuring 17 mm in the seth hepatis - Right cholecystostomy and biliary drains placed 11/11 - GI, Dr. Neville consulted. Recommend pt follow up with [facility] for specialist care - Surgery, Dr. Vaughn is consulted - Pt is hypotensive and currently on midodrine, solu-cortef, weaning off vasopressin - Continue cipro - Will start pt on liquid diet. - Positive stool occult - Negative hepatitis panel - Macias d/christina Renal A. 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 Carolina, pt stable and renal fxn improving - RIJ trialysis cath inserted on 11/10/17 - Nephro, Dr. Carolina is consulted Heme/onc -CEA 3.4, CA 19-9 798 - Heme/onc, Dr. Jin is consulted. - GI, Dr. Neville consulted and recommend following up with specialist at [facility] Endo A. Hyperglycemia - No HgbA1c on record. Hyperglycemia likely 2/2 steroids - HgbA1c 5.6 - ISS - Accucheck ID A. Septic shock - WBC count improving 19.5 - Hypotensive on midodrine, solu-cortef, weaning off vasopressin - Repeat blood culture grew Stenotrophomonas Maltophilia. - Currently on cipro Hypokalemia -K 3.2, replete w/ 20mEq KCL Prophylaxis - Protonix -heparin 5000sc q8 - SCDs - PT/OT - Date & Time Date: 11/19/17 Time: 14:57 <Andres Mcdaniel S - Last Filed: 11/19/17 17:52> CCU Objective - Vital Signs / Intake & Output Vital Signs (Last 4 hours): Vital Signs Pulse Resp BP Pulse Ox 11/19/17 16:01 82 11 L 112/71 92 L 11/19/17 16:00 80 14 95 11/19/17 15:31 84 10 L 104/66 94 L 11/19/17 15:06 83 13 94/64 L 96 11/19/17 15:00 87 9 L 96 11/19/17 14:31 86 11 L 93/61 L 95 11/19/17 14:01 85 9 L 107/67 93 L 11/19/17 14:00 89 9 L 95 Intake and Output (Last 8hrs): Intake & Output 11/19/17 11/19/17 11/19/17 06:59 14:59 22:59 Intake Total 309.2 26.8 4.8 Output Total 450 200 0 Balance -140.8 -173.2 4.8 Weight 295 lb Intake: IV 40 10 Intake, IV Amount 19.2 16.8 4.8 Right IJ trialysis cath 19.2 16.8 4.8 Oral 250 0 0 Output: Drainage 200 R lower cholecystostomy 50 Right upper biliary rain 150 Urine 450 0 0 Urine, Voided 450 0 0 Other: # Bowel Movements 0 0 0 - Medications Active Medications: Active Medications Generic Name Dose Route Start Last Admin Trade Name Freq PRN Reason Stop Dose Admin Calcium Acetate 1,334 mg 11/11/17 12:00 11/19/17 17:17 Phoslo PO 1,334 mg TIDCC JAQUELINE Administration Heparin Sodium (Porcine) 5,000 units 11/14/17 17:45 11/19/17 13:34 Heparin SC 5,000 units Q8 JAQUELINE Administration Hydrocortisone Sodium Succinate 50 mg 11/16/17 22:00 11/19/17 09:32 Solu-Cortef IV 50 mg Q12H JAQUELINE Administration Hydromorphone HCl 0.5 mg 11/19/17 10:46 Dilaudid IVP Q4H PRN Pain, severe (8-10) Vasopressin 40 units/ Dextrose 40 mls @ 2.4 mls/hr 11/10/17 21:30 11/19/17 10 :11 IV 0.03 units/min .[id number] JAQUELINE 1.8 mls/hr Protocol Titration 0.04 UNITS/MIN Ciprofloxacin 400 mg in 200 mls @ 133 mls/hr 11/14/17 15:30 11/19/17 16:03 Cipro 400mg/200ml Dsw IVPB 133 mls/hr Q24H JAQUELINE Administration Protocol Insulin Aspart 0 unit 11/17/17 16:30 11/19/17 12:34 Novolog SC 2 unit ACHS JAQUELINE Administration Protocol Midodrine 2.5 mg 11/18/17 10:00 11/19/17 17:17 Proamatine PO 2.5 mg TID JAQUELINE Administration Ondansetron HCl 4 mg 11/11/17 16:49 11/17/17 06:00 Zofran Inj IVP 4 mg Q6 PRN Administration Nausea/Vomiting Pantoprazole Sodium 40 mg 11/19/17 10:00 11/19/17 09:33 Protonix Ec Tab PO 40 mg DAILY JAQUELINE Administration Vitamin B Complex/Vit C/Folic Acid 1 tab 11/12/17 08:00 11/19/17 08:56 Nephro-Ken PO 1 tab 0800 JAQUELINE Administration - Patient Studies Lab Studies: Microbiology Studies 11/18/17 00:51 Urine Culture - Final Urine No Growth (<1,000 CFU/ML) 11/18/17 06:37 Blood Culture - Preliminary Blood-Thru Central Line NO GROWTH AFTER 24 HOURS 11/18/17 06:37 Blood Culture - Preliminary Blood-Thru Central Line NO GROWTH AFTER 24 HOURS Lab Studies 11/19/17 11/19/17 11/19/17 Range/Units 11:28 07:11 06:17 WBC 19.5 H (4.8-10.8) K/uL RBC 2.96 L (4.40-5.90) Mil/uL Hgb 9.7 L (12.0-18.0) g/dL Hct 27.5 L (35.0-51.0) % MCV 93.0 (80.0-94.0) fL MCH 33.0 H (27.0-31.0) pg MCHC 35.4 (33.0-37.0) g/dL RDW 16.4 H (11.5-14.5) % Plt Count 146 (130-400) K/uL MPV 9.5 (7.2-11.7) fL Neut % (Auto) 90.0 H (50.0-75.0) % Lymph % (Auto) 4.0 L (20.0-40.0) % [place] % (Auto) 6.0 (0.0-10.0) % Eos % (Auto) 0.0 (0.0-4.0) % Baso % (Auto) 0.0 (0.0-2.0) % Neut # (Auto) 17.5 H (1.8-7.0) K/uL Lymph # (Auto) 0.8 L (1.0-4.3) K/uL [place] # (Auto) 1.1 H (0.0-0.8) K/uL Eos # (Auto) 0.0 (0.0-0.7) K/uL Baso # (Auto) 0.0 (0.0-0.2) K/uL Neutrophils % (Manual) 85 H (50-75) % Band Neutrophils % 3 H (0-2) % Lymphocytes % (Manual) 4 L (20-40) % Monocytes % (Manual) 6 (0-10) % Myelocytes % 2 H (0-0) % Platelet Estimate Normal (NORMAL) Anisocytosis (manual) Slight Target Cells Moderate Sodium (132-148) mmol/L Potassium (3.6-5.2) mmol/L Chloride (98-107) mmol/L Carbon Dioxide (22-30) mmol/L Anion Gap (10-20) BUN (9-20) mg/dL Creatinine (0.8-1.5) mg/dL Est GFR ( Amer) Est GFR (Non-Af Amer) POC Glucose (mg/dL) 217 H 159 H (65-110) mg/dL Random Glucose (75-110) mg/dL Calcium (8.6-10.4) mg/dl Phosphorus (2.5-4.5) mg/dL Magnesium (1.6-2.3) mg/dL Total Bilirubin (0.2-1.3) mg/dL AST (17-59) U/L ALT (21-72) U/L Alkaline Phosphatase (38-126) U/L Total Protein (6.3-8.3) g/dL Albumin (3.5-5.0) g/dL Globulin (2.2-3.9) gm/dL Albumin/Globulin Ratio (1.0-2.1) 11/19/17 11/18/17 11/18/17 Range/Units 06:16 21:15 16:09 WBC (4.8-10.8) K/uL RBC (4.40-5.90) Mil/uL Hgb (12.0-18.0) g/dL Hct (35.0-51.0) % MCV (80.0-94.0) fL MCH (27.0-31.0) pg MCHC (33.0-37.0) g/dL RDW (11.5-14.5) % Plt Count (130-400) K/uL MPV (7.2-11.7) fL Neut % (Auto) (50.0-75.0) % Lymph % (Auto) (20.0-40.0) % [place] % (Auto) (0.0-10.0) % Eos % (Auto) (0.0-4.0) % Baso % (Auto) (0.0-2.0) % Neut # (Auto) (1.8-7.0) K/uL Lymph # (Auto) (1.0-4.3) K/uL [place] # (Auto) (0.0-0.8) K/uL Eos # (Auto) (0.0-0.7) K/uL Baso # (Auto) (0.0-0.2) K/uL Neutrophils % (Manual) (50-75) % Band Neutrophils % (0-2) % Lymphocytes % (Manual) (20-40) % Monocytes % (Manual) (0-10) % Myelocytes % (0-0) % Platelet Estimate (NORMAL) Anisocytosis (manual) Target Cells Sodium 146 (132-148) mmol/L Potassium 3.2 L (3.6-5.2) mmol/L Chloride 106 (98-107) mmol/L Carbon Dioxide 27 (22-30) mmol/L Anion Gap 17 (10-20) BUN 88 H (9-20) mg/dL Creatinine 3.9 H (0.8-1.5) mg/dL Est GFR ( Amer) 18 Est GFR (Non-Af Amer) 15 POC Glucose (mg/dL) 164 H 200 H (65-110) mg/dL Random Glucose 148 H (75-110) mg/dL Calcium 7.4 L (8.6-10.4) mg/dl Phosphorus 5.8 H (2.5-4.5) mg/dL Magnesium 2.0 (1.6-2.3) mg/dL Total Bilirubin 25.1 H (0.2-1.3) mg/dL AST 105 H (17-59) U/L ALT 109 H (21-72) U/L Alkaline Phosphatase 206 H (38-126) U/L Total Protein 5.8 L (6.3-8.3) g/dL Albumin 2.7 L (3.5-5.0) g/dL Globulin 3.1 (2.2-3.9) gm/dL Albumin/Globulin Ratio 0.9 L (1.0-2.1) Laboratory Results - last 24 hr 11/18/17 11/18/17 11/19/17 16:09 21:15 06:16 WBC RBC Hgb Hct MCV MCH MCHC RDW Plt Count MPV Neut % (Auto) Lymph % (Auto) [place] % (Auto) Eos % (Auto) Baso % (Auto) Neut # (Auto) Lymph # (Auto) [place] # (Auto) Eos # (Auto) Baso # (Auto) Neutrophils % (Manual) Band Neutrophils % Lymphocytes % (Manual) Monocytes % (Manual) Myelocytes % Platelet Estimate Anisocytosis (manual) Target Cells Sodium 146 Potassium 3.2 L Chloride 106 Carbon Dioxide 27 Anion Gap 17 BUN 88 H Creatinine 3.9 H Est GFR ( Amer) 18 Est GFR (Non-Af Amer) 15 POC Glucose (mg/dL) 200 H 164 H Random Glucose 148 H Calcium 7.4 L Phosphorus 5.8 H Magnesium 2.0 Total Bilirubin 25.1 H AST 105 H ALT 109 H Alkaline Phosphatase 206 H Total Protein 5.8 L Albumin 2.7 L Globulin 3.1 Albumin/Globulin Ratio 0.9 L 11/19/17 11/19/17 11/19/17 06:17 07:11 11:28 WBC 19.5 H RBC 2.96 L Hgb 9.7 L Hct 27.5 L MCV 93.0 MCH 33.0 H MCHC 35.4 RDW 16.4 H Plt Count 146 MPV 9.5 Neut % (Auto) 90.0 H Lymph % (Auto) 4.0 L [place] % (Auto) 6.0 Eos % (Auto) 0.0 Baso % (Auto) 0.0 Neut # (Auto) 17.5 H Lymph # (Auto) 0.8 L [place] # (Auto) 1.1 H Eos # (Auto) 0.0 Baso # (Auto) 0.0 Neutrophils % (Manual) 85 H Band Neutrophils % 3 H Lymphocytes % (Manual) 4 L Monocytes % (Manual) 6 Myelocytes % 2 H Platelet Estimate Normal Anisocytosis (manual) Slight Target Cells Moderate Sodium Potassium Chloride Carbon Dioxide Anion Gap BUN Creatinine Est GFR ( Amer) Est GFR (Non-Af Amer) POC Glucose (mg/dL) 159 H 217 H Random Glucose Calcium Phosphorus Magnesium Total Bilirubin AST ALT Alkaline Phosphatase Total Protein Albumin Globulin Albumin/Globulin Ratio Critical Care Progress Note - Nutrition Nutrition: Nutrition Category Date Time Status NPO Diet [DIET] Diets 11/19/17 Breakfast Active Attending/Attestation - Attestation I have personally seen and examined this patient.: Yes I have fully participated in the care of the patient.: Yes I have reviewed all pertinent clinical information: Yes
--- NOTE | 2017-11-19 15:08 | CP.PCM.PCO ---
Physician Communication Note - Physician Communication Note Physician Communication Note: Family meeting tomorrow with son. Time to be announced
[2017-11-19] MEDS: Ciprofloxacin 400mg/200ml D5W 400 MG/200 ML BAG IVPB SCH (16:03)
--- NOTE | 2017-11-19 17:32 | CP.PCM.PN ---
Subjective - Date & Time of Evaluation Date of Evaluation: 11/19/17 Time of Evaluation: 09:30 - Subjective Subjective: Seen and examined this morning .Patient was lying comfortable. Denies pain, getting Dilaudid for pain,tolerating diet On Vasopressin Objective - Vital Signs/Intake and Output Vital Signs (last 24 hours): Temp Pulse Resp BP Pulse Ox 98.9 F 82 11 L 112/71 92 L 11/19/17 12:00 11/19/17 16:01 11/19/17 16:01 11/19/17 16:01 11/19/17 16:01 Intake and Output: 11/19/17 11/19/17 06:59 18:59 Intake Total 558.8 31.6 Output Total 1600 200 Balance -1041.2 -168.4 - Medications Medications: Current Medications Calcium Acetate (Phoslo) 1,334 mg PO TIDCC [facility] Last Admin: 11/19/17 17:17 Dose: 1,334 mg Heparin Sodium (Porcine) (Heparin) 5,000 units SC Q8 [facility] Last Admin: 11/19/17 13:34 Dose: 5,000 units Hydrocortisone Sodium Succinate (Solu-Cortef) 50 mg IV Q12H [facility] Last Admin: 11/19/17 09:32 Dose: 50 mg Hydromorphone HCl (Dilaudid) 0.5 mg IVP Q4H PRN PRN Reason: Pain, severe (8-10) Vasopressin 40 units/ Dextrose 40 mls @ 2.4 mls/hr IV .[id number] JAQUELINE; 0.04 UNITS/ MIN PRN Reason: Protocol Last Titration: 11/19/17 10:11 Dose: 0.03 units/min, 1.8 mls/hr Ciprofloxacin (Cipro 400mg/200ml Dsw) 400 mg in 200 mls @ 133 mls/hr IVPB Q24H JAQUELINE PRN Reason: Protocol Last Admin: 11/19/17 16:03 Dose: 133 mls/hr Insulin Aspart (Novolog) 0 unit SC ACHS [facility] PRN Reason: Protocol Last Admin: 11/19/17 12:34 Dose: 2 unit Midodrine (Proamatine) 2.5 mg PO TID [facility] Last Admin: 11/19/17 17:17 Dose: 2.5 mg Ondansetron HCl (Zofran Inj) 4 mg IVP Q6 PRN PRN Reason: Nausea/Vomiting Last Admin: 11/17/17 06:00 Dose: 4 mg Pantoprazole Sodium (Protonix Ec Tab) 40 mg PO DAILY [facility] Last Admin: 11/19/17 09:33 Dose: 40 mg Vitamin B Complex/Vit C/Folic Acid (Nephro-Ken) 1 tab PO 0800 [facility] Last Admin: 11/19/17 08:56 Dose: 1 tab - Labs Labs: 11/19/17 06:17 11/19/17 06:16 PT 14.6 SECONDS (9.7-12.2) H 11/15/17 06:32 INR 1.3 11/15/17 06:32 APTT 30 SECONDS (21-34) 11/15/17 06:32 - Constitutional Appears: No Acute Distress, Chronically Ill - Head Exam Head Exam: ATRAUMATIC - Eye Exam Eye Exam: Scleral icterus - ENT Exam ENT Exam: Mucous Membranes Moist - Neck Exam Neck Exam: Full ROM - Respiratory Exam Respiratory Exam: Clear to Ausculation Bilateral, NORMAL BREATHING PATTERN - Cardiovascular Exam Cardiovascular Exam: REGULAR RHYTHM - GI/Abdominal Exam GI & Abdominal Exam: Soft, Normal Bowel Sounds - Extremities Exam Extremities Exam: Full ROM - Back Exam Back Exam: NORMAL INSPECTION - Neurological Exam Neurological Exam: Alert, Oriented x3 - Psychiatric Exam Psychiatric exam: Normal Mood - Skin Skin Exam: absent: Normal Color (Icteric,right sbdomen drains in place , dressing stained with bilious fluid,no active leak,edematous weeping left abdominal wall with redness ) Assessment and Plan - Assessment and Plan (Free Text) Plan: 1. Hypotension on vasopressin (Septic Shock secondary to ascending Cholangitis) He was brought from [place] on pressor for emergent dialysis Patient was septic and hypotensive on vasopressin Leukocytosis Ciprofloxacin 400mg IVPB Q24 (active since 11/14/17) off Meropenem 500mg IVPB QAM ( 11/11/17 to 11/19/2017) Dr. Abdi on board blood cultures negative,Bile (11/11/17): Stenotrophomonas Maltophilia continue solucortef and vasopressin on Midodrine d/w Dr Mcdaniel spoke to Dr. Neville this morning. He was planning to do ERCP tomorrow d/w GI fellow about [facility] transfer-They are not taking him because they cannot do ERCP when he is hypotensive on pressors and ERCP ,stent and biopsy can be done here at [facility], [place]. 2) Acute Renal Failure Dr Carolina group on board creatinine improving His UOP better and BUN/cr stable.As per Dr Carolina no acute need for dialysis last HD done 11/15/17. continue to monitor for spontaneous renal recovery. If renal function he is considering to d/c dialysis catheter 3) Painless Obstructive Jaundice Concern for mass and rule out malignancy ERCP was canceled at [facility] due to hypotension Dr. Neville is planning to do ERCP tomorrow s/p cholecystostomy with drain and biliary drain placement- s/p Drain site leak with skin excoriation. 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 Deanne Jin on board d/w Dr Jin. He will discuss with hepatobiliary surgeon at [facility] Discussed with Dr Mcdaniel about possibility of transferring him to [facility] ICU 4) Coagulopathy s/p elevated INR requiring FFP. patient was on coumadin for known atrial fibrillation history Aspirin secondary allergic reaction 5) Atrial fibrillation Patient is on pressor and off anti-hypertensive Now on DVT prophylaxis dosing Echocardiogram (10/31/17) systolic function is mildly impaired, global hypokinesis of left ventricle,EF 40% he has prior admission for coumadin toxicity/Hypercoagulation 6) Congestive Heart Failure, Systolic Cardiology Dr. Combs on board off anti-hypertensive; currently on pressor Aspirin secondary allergic reaction 7) Prophylactic measure patient is on heparin sq, protonix 40mg IV daily Full code
--- NOTE | 2017-11-19 18:02 | CP.PCM.PN ---
Subjective - Date & Time of Evaluation Date of Evaluation: 11/18/17 Time of Evaluation: 19:35 - Subjective Subjective: Feeling better. Objective - Vital Signs/Intake and Output Vital Signs (last 24 hours): Temp Pulse Resp BP Pulse Ox 98.9 F 82 11 L 112/71 92 L 11/19/17 12:00 11/19/17 16:01 11/19/17 16:01 11/19/17 16:01 11/19/17 16:01 Intake and Output: 11/19/17 11/19/17 06:59 18:59 Intake Total 558.8 31.6 Output Total 1600 200 Balance -1041.2 -168.4 - Medications Medications: Current Medications Calcium Acetate (Phoslo) 1,334 mg PO TIDCC [facility] Last Admin: 11/19/17 17:17 Dose: 1,334 mg Heparin Sodium (Porcine) (Heparin) 5,000 units SC Q8 [facility] Last Admin: 11/19/17 13:34 Dose: 5,000 units Hydrocortisone Sodium Succinate (Solu-Cortef) 50 mg IV Q12H [facility] Last Admin: 11/19/17 09:32 Dose: 50 mg Hydromorphone HCl (Dilaudid) 0.5 mg IVP Q4H PRN PRN Reason: Pain, severe (8-10) Vasopressin 40 units/ Dextrose 40 mls @ 2.4 mls/hr IV .[id number] [facility]; 0.04 UNITS/ MIN PRN Reason: Protocol Last Titration: 11/19/17 10:11 Dose: 0.03 units/min, 1.8 mls/hr Ciprofloxacin (Cipro 400mg/200ml Dsw) 400 mg in 200 mls @ 133 mls/hr IVPB Q24H [facility] PRN Reason: Protocol Last Admin: 11/19/17 16:03 Dose: 133 mls/hr Insulin Aspart (Novolog) 0 unit SC ACHS [facility] PRN Reason: Protocol Last Admin: 11/19/17 12:34 Dose: 2 unit Midodrine (Proamatine) 2.5 mg PO TID [facility] Last Admin: 11/19/17 17:17 Dose: 2.5 mg Ondansetron HCl (Zofran Inj) 4 mg IVP Q6 PRN PRN Reason: Nausea/Vomiting Last Admin: 11/17/17 06:00 Dose: 4 mg Pantoprazole Sodium (Protonix Ec Tab) 40 mg PO DAILY [facility] Last Admin: 11/19/17 09:33 Dose: 40 mg Vitamin B Complex/Vit C/Folic Acid (Nephro-Ken) 1 tab PO 0800 [facility] Last Admin: 11/19/17 08:56 Dose: 1 tab - Labs Labs: 11/19/17 06:17 11/19/17 06:16 PT 14.6 SECONDS (9.7-12.2) H 11/15/17 06:32 INR 1.3 11/15/17 06:32 APTT 30 SECONDS (21-34) 11/15/17 06:32 - Head Exam Head Exam: ATRAUMATIC - Eye Exam Eye Exam: Normal appearance - ENT Exam ENT Exam: Mucous Membranes Dry - Respiratory Exam Respiratory Exam: NORMAL BREATHING PATTERN - Cardiovascular Exam Cardiovascular Exam: +S1, +S2 - GI/Abdominal Exam GI & Abdominal Exam: Normal Bowel Sounds Assessment and Plan (1) Liver mass Assessment & Plan: suspicious for cholangiocarcinoma s/p biliary drain awaiting transfer to [facility] Status: Acute (2) Anemia Assessment & Plan: chronic disease, renal disease Status: Acute
--- NOTE | 2017-11-19 18:04 | CP.PCM.PN ---
Subjective - Date & Time of Evaluation Date of Evaluation: 11/19/17 Time of Evaluation: 17:00 - Subjective Subjective: Feeling better For ERCP in AM Objective - Vital Signs/Intake and Output Vital Signs (last 24 hours): Temp Pulse Resp BP Pulse Ox 98.9 F 82 11 L 112/71 92 L 11/19/17 12:00 11/19/17 16:01 11/19/17 16:01 11/19/17 16:01 11/19/17 16:01 Intake and Output: 11/19/17 11/19/17 06:59 18:59 Intake Total 558.8 31.6 Output Total 1600 200 Balance -1041.2 -168.4 - Medications Medications: Current Medications Calcium Acetate (Phoslo) 1,334 mg PO TIDCC [facility] Last Admin: 11/19/17 17:17 Dose: 1,334 mg Heparin Sodium (Porcine) (Heparin) 5,000 units SC Q8 [facility] Last Admin: 11/19/17 13:34 Dose: 5,000 units Hydrocortisone Sodium Succinate (Solu-Cortef) 50 mg IV Q12H [facility] Last Admin: 11/19/17 09:32 Dose: 50 mg Hydromorphone HCl (Dilaudid) 0.5 mg IVP Q4H PRN PRN Reason: Pain, severe (8-10) Vasopressin 40 units/ Dextrose 40 mls @ 2.4 mls/hr IV .[id number] [facility]; 0.04 UNITS/ MIN PRN Reason: Protocol Last Titration: 11/19/17 10:11 Dose: 0.03 units/min, 1.8 mls/hr Ciprofloxacin (Cipro 400mg/200ml Dsw) 400 mg in 200 mls @ 133 mls/hr IVPB Q24H [facility] PRN Reason: Protocol Last Admin: 11/19/17 16:03 Dose: 133 mls/hr Insulin Aspart (Novolog) 0 unit SC ACHS [facility] PRN Reason: Protocol Last Admin: 11/19/17 12:34 Dose: 2 unit Midodrine (Proamatine) 2.5 mg PO TID [facility] Last Admin: 11/19/17 17:17 Dose: 2.5 mg Ondansetron HCl (Zofran Inj) 4 mg IVP Q6 PRN PRN Reason: Nausea/Vomiting Last Admin: 11/17/17 06:00 Dose: 4 mg Pantoprazole Sodium (Protonix Ec Tab) 40 mg PO DAILY [facility] Last Admin: 11/19/17 09:33 Dose: 40 mg Vitamin B Complex/Vit C/Folic Acid (Nephro-Ken) 1 tab PO 0800 [facility] Last Admin: 11/19/17 08:56 Dose: 1 tab - Labs Labs: 11/19/17 06:17 11/19/17 06:16 PT 14.6 SECONDS (9.7-12.2) H 11/15/17 06:32 INR 1.3 11/15/17 06:32 APTT 30 SECONDS (21-34) 11/15/17 06:32 - Head Exam Head Exam: ATRAUMATIC - Eye Exam Eye Exam: Scleral icterus - ENT Exam ENT Exam: Mucous Membranes Dry - Respiratory Exam Respiratory Exam: NORMAL BREATHING PATTERN - Cardiovascular Exam Cardiovascular Exam: +S1, +S2 - GI/Abdominal Exam GI & Abdominal Exam: Normal Bowel Sounds Assessment and Plan (1) Liver mass Assessment & Plan: suspect cholangiocarcinoma s/p biliary drain for ERCP in AM for transfer to [facility], will discuss with hepatobiliary surgery at [facility] Status: Acute (2) Anemia Assessment & Plan: chronic disease, renal disease transfusion support PRN Status: Acute
--- NOTE | 2017-11-19 18:27 | PN ---
DATE: 11/19/2017 SUBJECTIVE: The patient remains afebrile. He remains ectatic. He has no new complaints. PHYSICAL EXAMINATION: GENERAL: He is watching TV, appears to be comfortable. VITAL SIGNS: T-max is 97.4, pulse is 76, blood pressure is 109/72, respirations are 16, saturation 94. HEENT: Head is atraumatic. NECK: Supple. LUNGS: Decreased breath sounds bilaterally. HEART: S1 and S2 is regular. ABDOMEN: He has a cholecystostomy tube present and is flabby, nontender. EXTREMITIES: Venodyne boots present. LABORATORY DATA: Labs are noted. White count is today also 19.5. He is on hydrocortisone. , hematocrit 27.5, platelet count is 146. His chemistry shows total bilirubin has increased from 22.9 to 25.1, and AST and ALT remains elevated. He does have a cholecystostomy tube. MEDICATIONS: At this time, other medications are reviewed. His medications include hydrocortisone, heparin subcu, Dilaudid, NovoLog. He is on meropenem, ProAmatine, Zofran, Protonix, vasopressin low dose, and he is on vitamin B-complex. At this time, since I have asked for the body fluid to be sent again for culture to see what is happening to the Stenotrophomonas, which we isolated, we will leave him on Cipro, discontinue meropenem as it may also be contributing to the . The patient has a cholecystostomy tube and will need to monitor his bilirubin if the cholecystotomy tube is intact and draining well, and we will continue Cipro at this time and awaiting for the white count to decrease. Also he is on steroids and probably stress-dose steroids. We will follow. Stephania Abdi MD
[2017-11-20] MEDS: HYDROmorphone 0.5 mg/0.5 ml ISec IVP PRN ×2 (06:11→21:45)
[2017-11-20 06:38] LABS: ALB/GLOB RATIO 0.8 (1.0-2.1); ALBUMIN 2.6 g/dL (3.5-5.0); CALCIUM 7.5 mg/dl (8.6-10.4); HEMOGLOBIN 9.9 g/dL (12.0-18.0); MEAN CELL VOLUME 92.1 fL (80.0-94.0); MEAN CORPUSCULAR HEMOGLOBIN 31.8 pg (27.0-31.0); MEAN CORPUSCULAR HGB CONC 34.5 g/dL (33.0-37.0); PLATELET COUNT 156 K/uL (130-400); RBC 3.11 Mil/uL (4.40-5.90); RED CELL DISTRIBUTION WIDTH 16.9 % (11.5-14.5); WHITE BLOOD COUNT 27.1 K/uL (4.8-10.8)
[2017-11-20 07:40] LABS: INR 1.3; PROTHROMBIN TIME 14.2 SECONDS (9.7-12.2)
[2017-11-20] MEDS: Multivitamin Vitamin B Complex (Nephro-Vite) Tab PO SCH (08:10)
[2017-11-20] MEDS: (Novolog) Insulin Aspart, Recombinant 100 u/ml 10 ml vial SC SCH ×4 (08:12→21:48)
--- NOTE | 2017-11-20 08:20 | CP.PCM.PN ---
Subjective - Date & Time of Evaluation Date of Evaluation: 11/20/17 Time of Evaluation: 08:17 - Subjective Subjective: seen and examined,lying comfortable and checking his messages on his cell phone, feels better,Thirsty and asking for water. NPO for ERCP. Off vasopressin no fever,his wbc went up Objective - Vital Signs/Intake and Output Vital Signs (last 24 hours): Temp Pulse Resp BP Pulse Ox 97.8 F 81 10 L 108/76 95 11/20/17 04:00 11/20/17 08:00 11/20/17 08:00 11/20/17 07:20 11/20/17 08:00 Intake and Output: 11/20/17 11/20/17 06:59 18:59 Intake Total 400 0 Output Total 800 100 Balance -400 -100 - Medications Medications: Current Medications Calcium Acetate (Phoslo) 1,334 mg PO TIDCC [facility] Last Admin: 11/20/17 08:10 Dose: Not Given Heparin Sodium (Porcine) (Heparin) 5,000 units SC Q8 [facility] Last Admin: 11/20/17 05:29 Dose: 5,000 units Hydrocortisone Sodium Succinate (Solu-Cortef) 50 mg IV Q12H [facility] Last Admin: 11/19/17 21:30 Dose: 50 mg Hydromorphone HCl (Dilaudid) 0.5 mg IVP Q4H PRN PRN Reason: Pain, severe (8-10) Last Admin: 11/20/17 06:11 Dose: 0.5 mg Vasopressin 40 units/ Dextrose 40 mls @ 2.4 mls/hr IV .[id number] [facility]; 0.04 UNITS/ MIN PRN Reason: Protocol Last Admin: 11/19/17 22:15 Dose: Not Given Ciprofloxacin (Cipro 400mg/200ml Dsw) 400 mg in 200 mls @ 133 mls/hr IVPB Q24H [facility] PRN Reason: Protocol Last Admin: 11/19/17 16:03 Dose: 133 mls/hr Insulin Aspart (Novolog) 0 unit SC ACHS [facility] PRN Reason: Protocol Last Admin: 11/20/17 08:12 Dose: Not Given Midodrine (Proamatine) 2.5 mg PO TID [facility] Last Admin: 11/19/17 17:17 Dose: 2.5 mg Ondansetron HCl (Zofran Inj) 4 mg IVP Q6 PRN PRN Reason: Nausea/Vomiting Last Admin: 11/17/17 06:00 Dose: 4 mg Pantoprazole Sodium (Protonix Ec Tab) 40 mg PO DAILY [facility] Last Admin: 11/19/17 09:33 Dose: 40 mg Vitamin B Complex/Vit C/Folic Acid (Nephro-Ken) 1 tab PO 0800 [facility] Last Admin: 11/20/17 08:10 Dose: Not Given - Labs Labs: 11/20/17 06:10 11/20/17 06:10 PT 14.2 SECONDS (9.7-12.2) H 11/20/17 07:32 INR 1.3 11/20/17 07:32 APTT 30 SECONDS (21-34) 11/15/17 06:32 - Constitutional Appears: No Acute Distress, Chronically Ill - Head Exam Head Exam: ATRAUMATIC - Eye Exam Eye Exam: Scleral icterus Pupil Exam: PERRL - ENT Exam ENT Exam: Mucous Membranes Moist - Neck Exam Neck Exam: Full ROM - Respiratory Exam Respiratory Exam: Clear to Ausculation Bilateral, NORMAL BREATHING PATTERN - Cardiovascular Exam Cardiovascular Exam: Irregular Rhythm - GI/Abdominal Exam GI & Abdominal Exam: Soft (had two drain on his right abdomen and left abdomen skin edematous ,weeping, redness noted), Normal Bowel Sounds. absent: Tenderness - Extremities Exam Extremities Exam: Normal Inspection. absent: Joint Swelling, Tenderness - Neurological Exam Neurological Exam: Alert, Oriented x3 - Psychiatric Exam Psychiatric exam: Normal Affect, Normal Mood - Skin Skin Exam: Dry, Normal Color Assessment and Plan - Assessment and Plan (Free Text) Plan: 1) Painless Obstructive Jaundice /supecting cholangiocarcinoma ERCP was canceled at [facility] due to hypotension Dr. Neville is planning to do ERCP today,patient is NPO,INR 1.3 ERCP with biopsy and stent? 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 Deanne Jin on board spoke to Dr Jin yesterday He will discuss with hepatobiliary surgeon at [facility] Discussed with Dr Mcdaniel about possibility of transferring him to [facility] ICU yesterday we will follow after ERCP 2. s/p Septic Shock secondary to ascending Cholangitis and hypotension off pressors today (He was brought from [place] on pressor for emergent dialysis Patient was septic and hypotensive on vasopressin) Leukocytosis is up today its 27,no fever,we will follow with ID Ciprofloxacin 400mg IVPB Q24 (active since 11/14/17) off Meropenem 500mg IVPB QAM ( 11/11/17 to 11/19/2017) Dr. Abdi on board blood cultures negative,Bile (11/11/17): Stenotrophomonas Maltophilia continue solucortef on Midodrine d/w Dr Mcdaniel ,Dr Cantu GI fellow and Dr Jin about possible transfer to [facility] for hepatobiliary intervention and management we will follow 3) Acute Renal Failure Dr Carolina group on board creatinine improving His UOP better and BUN/cr stable.As per Dr Carolina no acute need for dialysis last HD done 11/15/17. continue to monitor for spontaneous renal recovery. If renal function he is considering to d/c dialysis catheter 4) Coagulopathy s/p elevated INR requiring FFP. patient was on coumadin for known atrial fibrillation history Aspirin secondary allergic reaction today INR 1.3 5) Atrial fibrillation Patient is on pressor and off anti-hypertensive Now on DVT prophylaxis dosing Echocardiogram (10/31/17) systolic function is mildly impaired, global hypokinesis of left ventricle,EF 40% he has prior admission for coumadin toxicity/Hypercoagulation off aniticoag now except hep sq for dvt prophylaxis 6. Congestive Heart Failure, Systolic Cardiology Dr. Combs on board seen by Dr Combs this morning off anti-hypertensive,off pressor today Aspirin secondary allergic reaction 7 . Prophylactic measure patient is on heparin sq, protonix 40mg IV daily 8.Skin care s/p Drain site leak with skin excoriation. Edematous weeping skin noted on his left abdominal wall/skin care as per wound care team Full code Plan discussed with patient. He is alert and orientedx3
[2017-11-20 09:36] LABS: LYMPH # 0.9 K/uL (1.0-4.3); MONO # 2.4 K/uL (0.0-0.8); NEUT # 23.8 K/uL (1.8-7.0)
[2017-11-20 09:38] LABS: ANISOCYTOSIS SLIGHT; BANDS 1 % (0-2); LYMPHOCYTE 4 % (20-40); MONOCYTE 10 % (0-10); NEUTROPHIL 85 % (50-75); PLATELET ESTIMATE NORMAL (NORMAL); TARGET CELLS SLIGHT; TOTAL CELLS COUNTED 100
[2017-11-20] MEDS ORDERED: Potassium Chloride 20 mEq ER Tab PO SCH (10:00)
--- NOTE | 2017-11-20 10:11 | CP.PCM.CON ---
History of Present Illness - History of Present Illness History of Present Illness: Palliative consult requested by Doctor Mcdaniel for goals of care discussion Patient is a 77 yo male transferred from [facility] for emergency HD and HD catheter placement. Patient was with SBP of 80-90. At [facility] patient was admitted for abdominal pain and skin color changes X 2 weeks. Patient had ERCP in the past with no evidence of pancreatic or billiary mass. Patient was scheduled for repeat ERCP in November of this year, but procedure was cancelled due to low BP. At 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 Here at [facility] patient was not candidate for ERCP initially due to still low BP despite all pressors on board. Patient underwent IR with T tube placement for bile drainage. Doctor Davin is on board and tumor markers were ordered for suspected malignancy. Patient is still awaiting ERCP with Doctor Neville when BP stable enough. PMH: Septic shock, MACIE, CAD, obstructive jaundice, A Fib, CHF, GI bleed Soc. Hx: , lives at home, used to smoke cigars Fam. Hx: parents from lung cancer Review of Systems - Constitutional Constitutional: Weakness - EENT Eyes: absent: As Per HPI, Blind Spots, Blurred Vision, Change in Vision, Decreased Night Vision, Diplopia, Discharge, Dry Eye, Exophthalmos, Floaters, Irritation, Itchy Eyes, Loss of Peripheral Vision, Pain, Photophobia, Requires Corrective Lenses, Sees Flashes, Spots in Vision, Tunnel Vision, Other Visual Disturbances, Loss of Vision, Other Ears: absent: As Per HPI, Decreased Hearing, Ear Discharge, Ear Pain, Tinnitus, Abnormal Hearing, Disequilibrium, Dizziness, Other Nose/Mouth/Throat: absent: As Per HPI, Epistaxis, Nasal Congestion, Nasal Discharge, Nasal Obstruction, Nasal Trauma, Nose Pain, Post Nasal Drip, Sinus Pain, Sinus Pressure, Bleeding Gums, Change in Voice, Dental Pain, Dry Mouth, Dysphagia, Halitosis, Hoarsness, Lip Swelling, Mouth Lesions, Mouth Pain, Odynophagia, Sore Throat, Throat Swelling, Tongue Swelling, Facial Pain, Neck Pain, Neck Mass, Other - Cardiovascular Cardiovascular: Leg Edema - Respiratory Respiratory: Dyspnea on Exertion - Gastrointestinal Gastrointestinal: Abdominal Pain - Genitourinary Genitourinary: Dysuria - Musculoskeletal Musculoskeletal: Muscle Weakness - Integumentary Integumentary: Change in Pigmentation - Neurological Neurological: absent: As Per HPI, Abnormal Gait, Abnormal Hearing, Abnormal Movements, Abnormal Speech, Behavioral Changes, Burning Sensations, Confusion, Convulsions, Disequilibrium, Dizziness, Numbness, Focal Weakness, Frequent Falls , Headaches, Lack of Coordination, Loss of Vision, Memory Loss, Paresthesias, Radicular Pain, Restless Legs, Sensory Deficit, Syncope, Tingling, Tremor, Vertigo, Weakness, Other Visual Disturbances, Other - Psychiatric Psychiatric: absent: As Per HPI, Abnormal Sleep Pattern, Anhedonia, Anxiety, Auditory Hallucinations, Behavioral Changes, Change in Appetite, Change in Libido, Confusion, Depression, Difficulty Concentrating, Hallucinations, Homicidal Ideation, Hopelessness, Irritability, Memory Loss, Mood Swings, Panic Attacks, Paranoia, Suicidal Ideation, Visual Hallucinations, Tactile Hallucinations, Other - Endocrine Endocrine: absent: As Per HPI, Change in Body Appearance, Change in Libido, Cold Intolorance, Deepening of Voice, Excessive Sweating, Fatigue, Flushing, Heat Intolorance, Increase in Ring/Shoe/Hat Size, Palpitations, Polydipsia, Polyphagia, Polyuria, Other - Hematologic/Lymphatic Hematologic: absent: As Per HPI, Easy Bleeding, Easy Bruising, Lymphadenopathy, Other Past Patient History - Infectious Disease Hx of Infectious Diseases: None - Tetanus Immunizations Tetanus Immunization: Unknown - Past Medical History & Family History Past Medical History?: Yes - Past Social History Smoking Status: Current Some Days Smoker - CARDIAC Hx Cardiac Disorders: Yes Hx Congestive Heart Failure: Yes Hx Hypercholesterolemia: Yes Hx Hypertension: Yes - PULMONARY Hx Chronic Obstructive Pulmonary Disease (COPD): No - NEUROLOGICAL HX Cerebrovascular Accident: No - HEENT Hx HEENT Problems: No - RENAL Hx Chronic Kidney Disease: No - ENDOCRINE/METABOLIC Hx Endocrine Disorders: No - HEMATOLOGICAL/ONCOLOGICAL Hx Blood Disorders: No Hx AIDS: No Hx Anemia: No Hx Cancer: No Hx Chemotherapy: No Hx Cirrhosis: No Hx Hepatitis A: No Hx Hepatitis B: No Hx Hepatitis C: No Hx Human Immunodeficiency Virus (HIV): No Hx Metastesis: No Hx Shingles: No Hx Unexplained Bleeding: No - INTEGUMENTARY Hx Dermatological Problems: No - MUSCULOSKELETAL/RHEUMATOLOGICAL Hx Arthritis: No - GASTROINTESTINAL Hx Gastrointestinal Disorders: Yes Hx Colostomy: No Hx Crohn's Disease: No Hx Diverticulitis: No Hx Gall Bladder Disease: Yes Hx Gastroesophageal Reflux: No Hx Ileostomy: No Hx Liver Failure: No Hx Pancreatitis: No HX Swallowing Problems: No Hx Ulcer: No - GENITOURINARY/GYNECOLOGICAL Hx Genitourinary Disorders: No - PSYCHIATRIC Hx Psychophysiologic Disorder: No Hx Substance Use: No - SURGICAL HISTORY Hx Surgeries: No Hx Amputation: No Hx Appendectomy: No Hx Cardiac Catheterization: Yes Hx Cholecystectomy: No Hx Coronary Stent: No Hx Gastric Bypass Surgery: No Hx Hysterectomy: No Hx Joint Replacement: No Hx Kidney Transplant: No Hx Liver Transplant: No Hx Mastectomy: No Hx Musculoskeletal Surgery: No Hx Open Heart Surgery: No Hx Orthopedic Surgery: No Hx Splenectomy: No Hx Valve Replacement: No - ANESTHESIA Hx Anesthesia Reactions: No Hx Malignant Hyperthermia: No Meds Allergies/Adverse Reactions: Allergies Allergy/AdvReac Type Severity Reaction Status Date / Time aspirin Allergy ANAPHYLAXIS Verified 11/08/17 14:49 Penicillins Allergy PT DOES Verified 11/08/17 14:49 NOT REMEMBER THE REACTION - Medications Medications: Current Medications Calcium Acetate (Phoslo) 1,334 mg PO TIDCC [facility] Last Admin: 11/20/17 08:10 Dose: Not Given Heparin Sodium (Porcine) (Heparin) 5,000 units SC Q8 [facility] Last Admin: 11/20/17 05:29 Dose: 5,000 units Hydrocortisone Sodium Succinate (Solu-Cortef) 50 mg IV Q12H [facility] Last Admin: 11/19/17 21:30 Dose: 50 mg Hydromorphone HCl (Dilaudid) 0.5 mg IVP Q4H PRN PRN Reason: Pain, severe (8-10) Last Admin: 11/20/17 06:11 Dose: 0.5 mg Vasopressin 40 units/ Dextrose 40 mls @ 2.4 mls/hr IV .[id number] [facility]; 0.04 UNITS/ MIN PRN Reason: Protocol Last Admin: 11/19/17 22:15 Dose: Not Given Ciprofloxacin (Cipro 400mg/200ml Dsw) 400 mg in 200 mls @ 133 mls/hr IVPB Q24H [facility] PRN Reason: Protocol Last Admin: 11/19/17 16:03 Dose: 133 mls/hr Potassium Chloride (Potassium Chloride 20 Meq/100 Ml) 20 meq in 100 mls @ 50 mls/hr IVPB ONCE ONE Stop: 11/20/17 11:46 Insulin Aspart (Novolog) 0 unit SC ACHS [facility] PRN Reason: Protocol Last Admin: 11/20/17 08:12 Dose: Not Given Midodrine (Proamatine) 2.5 mg PO TID [facility] Last Admin: 11/19/17 17:17 Dose: 2.5 mg Ondansetron HCl (Zofran Inj) 4 mg IVP Q6 PRN PRN Reason: Nausea/Vomiting Last Admin: 11/17/17 06:00 Dose: 4 mg Pantoprazole Sodium (Protonix Ec Tab) 40 mg PO DAILY [facility] Last Admin: 11/19/17 09:33 Dose: 40 mg Potassium Chloride (K-Dur 20 Meq Er Tab) 40 meq PO DAILY [facility] Stop: 11/20/17 10:01 Vitamin B Complex/Vit C/Folic Acid (Nephro-Ken) 1 tab PO 0800 [facility] Last Admin: 11/20/17 08:10 Dose: Not Given Physical Exam - Constitutional Appears: Chronically Ill - Head Exam Head Exam: ATRAUMATIC, NORMAL INSPECTION, NORMOCEPHALIC - Eye Exam Eye Exam: EOMI, Normal appearance, PERRL Pupil Exam: NORMAL ACCOMODATION, PERRL Additional comments: sclera icteric - ENT Exam ENT Exam: Mucous Membranes Moist, Normal Exam - Neck Exam Neck exam: Positive for: Normal Inspection - Respiratory Exam Respiratory Exam: Decreased Breath Sounds, NORMAL BREATHING PATTERN - Cardiovascular Exam Cardiovascular Exam: Irregular Rhythm - GI/Abdominal Exam GI & Abdominal Exam: Distended, Normal Bowel Sounds, Soft Additional comments: Billiary tubes in place, output green bile - Rectal Exam Rectal Exam: Deferred - Exam Exam: NORMAL INSPECTION Additional comments: had 3 HD on this admission, able to urinate - Extremities Exam Extremities exam: Positive for: joint swelling, pedal edema, pedal pulses present - Back Exam Back exam: NORMAL INSPECTION - Neurological Exam Neurological exam: Alert, CN II-XII Intact, Oriented x3, Reflexes Normal - Psychiatric Exam Psychiatric exam: Normal Affect, Normal Mood - Skin Skin Exam: Abrasion, Mottled Additional comments: jaundice Results - Vital Signs Recent Vital Signs: Last Vital Signs Temp 97.5 F L 11/20/17 08:00 Pulse 81 11/20/17 08:00 Resp 10 L 11/20/17 08:00 BP 108/76 11/20/17 07:20 Pulse Ox 95 11/20/17 08:00 - Labs Result Diagrams: 11/20/17 06:10 11/20/17 06:10 Labs: Laboratory Results - last 24 hr 11/19/17 11/20/17 11/20/17 11:28 06:10 06:10 WBC 27.1 H RBC 3.11 L Hgb 9.9 L Hct 28.7 L MCV 92.1 MCH 31.8 H MCHC 34.5 RDW 16.9 H Plt Count 156 MPV 9.0 Neut % (Auto) 88.0 H Lymph % (Auto) 3.0 L [place] % (Auto) 9.0 Eos % (Auto) 0.0 Baso % (Auto) 0.0 Neut # (Auto) 23.8 H Lymph # (Auto) 0.9 L [place] # (Auto) 2.4 H Eos # (Auto) 0.0 Baso # (Auto) 0.0 Neutrophils % (Manual) 85 H Band Neutrophils % 1 Lymphocytes % (Manual) 4 L Monocytes % (Manual) 10 Platelet Estimate Normal Anisocytosis (manual) Slight Target Cells Slight PT INR Sodium 146 Potassium 3.1 L Chloride 106 Carbon Dioxide 28 Anion Gap 16 BUN 87 H Creatinine 3.5 H Est GFR ( Amer) 21 Est GFR (Non-Af Amer) 17 POC Glucose (mg/dL) 217 H Random Glucose 95 Calcium 7.5 L Phosphorus 4.3 Magnesium 1.9 Total Bilirubin 23.8 H AST 106 H ALT 111 H Alkaline Phosphatase 213 H Total Protein 5.7 L Albumin 2.6 L Globulin 3.1 Albumin/Globulin Ratio 0.8 L 11/20/17 07:32 WBC RBC Hgb Hct MCV MCH MCHC RDW Plt Count MPV Neut % (Auto) Lymph % (Auto) [place] % (Auto) Eos % (Auto) Baso % (Auto) Neut # (Auto) Lymph # (Auto) [place] # (Auto) Eos # (Auto) Baso # (Auto) Neutrophils % (Manual) Band Neutrophils % Lymphocytes % (Manual) Monocytes % (Manual) Platelet Estimate Anisocytosis (manual) Target Cells PT 14.2 H INR 1.3 Sodium Potassium Chloride Carbon Dioxide Anion Gap BUN Creatinine Est GFR ( Amer) Est GFR (Non-Af Amer) POC Glucose (mg/dL) Random Glucose Calcium Phosphorus Magnesium Total Bilirubin AST ALT Alkaline Phosphatase Total Protein Albumin Globulin Albumin/Globulin Ratio Assessment & Plan - Assessment and Plan (Free Text) Assessment: Palliative consult Full Code, there is no advance directive on chart, PPS 30% I reviewed medical records, all diagnostic studies, examined and interviewed patient Patient is alert, oriented X 3, looking chronically ill. Patient is anxious about pending ERCP and its uncertainity due to persistently low BP. Patient was kept NPO since last night for possible ERCP this am if BP remains stable. Skin and sclera are jaundiced . Breath sounds regular and diminished B/L/ Abdomen large, soft, active bowel sounds, 3 T tubes to RUQ. Denies nausea, vomiting, states is hyngry and is asking for water. Patient given Ice chips.Patient produces urine. Right knee is swollen what is chronic situation. Patient reports not being able to lift up right leg due to pain. PT and pain meds on board. BP 96/60 this am. HR 84 WBC samira up to 27.1 from 19.5, BUN 87, Plate Stacker 3.5, T Roby 23.8 Goals of care discussed with patient. Patient is aware of his condition and fact that he may have a cancer. Patient states" my has a cancer too". He is anxious to have ERCP done and hopefully recover. Patient states feeling OK and reports starting feeling sick about 2 weeks prior to this admission. Prior to it, patient traveled to [place] with his . I offered more information to patient about risks for ERCP if BP remains low and offer more information on NPO status. MD Neville and anesthesia came in to discuss possible ERCP with patient. Code status discussed. Patient stated he had " some" Living will but wanted me to talk to his son. I informed patient that I had called his son and left two messages. This was discussed with ICU team on rounds. Impression * Chronically ill male with obstructive jaundice due to CBD obstruction * There is concern about hepatic mass as per CT abdomen * Hypotension making ERCP uncertain * Body image changes 2nd to jaundice * Right leg weakness and pain * Limited mobility, requires extensive assistance with OOB * There is no Advance Directive on chart * Patient prefers Code status discussed with his son Suggestion * GI per Doctor Neville * PT for OOB as tolerated * Monitor right knee swelling, if pain worsens consider XRay * Pall care will continue looking for the son to discuss Code status and goals of care
[2017-11-20] MEDS ORDERED: Albumin Human 25% (12.5 gm/50 ml) IV ONE (10:15)
[2017-11-20] MEDS: Pantoprazole 40 mg EC Tab PO SCH ×2 (10:57→13:30)
--- NOTE | 2017-11-20 11:00 | CP.PCM.PN ---
Subjective - Date & Time of Evaluation Date of Evaluation: 11/20/17 Time of Evaluation: 10:58 - Subjective Subjective: GI Fellow PGY4, progress note. Patient seen and examined. Biliary drain working well. No complaints of abdominal pain. NPO since midnight. Vasopressors off. Discussed updates with Dr. Lofton, accepting physician at [facility]. Willing to accept when stable enough to be in PCU. Complete 12pt ROS negative except for above. Objective - Vital Signs/Intake and Output Vital Signs (last 24 hours): Temp Pulse Resp BP Pulse Ox 97.5 F L 84 17 93/60 L 78 L 11/20/17 08:00 11/20/17 10:00 11/20/17 10:00 11/20/17 09:20 11/20/17 10:00 Intake and Output: 11/20/17 11/20/17 06:59 18:59 Intake Total 400 0 Output Total 800 240 Balance -400 -240 - Medications Medications: Current Medications Calcium Acetate (Phoslo) 1,334 mg PO TIDCC [facility] Last Admin: 11/20/17 08:10 Dose: Not Given Heparin Sodium (Porcine) (Heparin) 5,000 units SC Q8 [facility] Last Admin: 11/20/17 05:29 Dose: 5,000 units Hydrocortisone Sodium Succinate (Solu-Cortef) 50 mg IV Q12H [facility] Last Admin: 11/20/17 10:20 Dose: 50 mg Hydromorphone HCl (Dilaudid) 0.5 mg IVP Q4H PRN PRN Reason: Pain, severe (8-10) Last Admin: 11/20/17 06:11 Dose: 0.5 mg Vasopressin 40 units/ Dextrose 40 mls @ 2.4 mls/hr IV .[id number] [facility]; 0.04 UNITS/ MIN PRN Reason: Protocol Last Admin: 11/19/17 22:15 Dose: Not Given Ciprofloxacin (Cipro 400mg/200ml Dsw) 400 mg in 200 mls @ 133 mls/hr IVPB Q24H [facility] PRN Reason: Protocol Last Admin: 11/19/17 16:03 Dose: 133 mls/hr Potassium Chloride (Potassium Chloride 20 Meq/100 Ml) 20 meq in 100 mls @ 50 mls/hr IVPB ONCE ONE Stop: 11/20/17 11:46 Last Admin: 11/20/17 10:19 Dose: 50 mls/hr Insulin Aspart (Novolog) 0 unit SC ACHS [facility] PRN Reason: Protocol Last Admin: 11/20/17 08:12 Dose: Not Given Midodrine (Proamatine) 2.5 mg PO TID [facility] Last Admin: 11/20/17 10:46 Dose: Not Given Ondansetron HCl (Zofran Inj) 4 mg IVP Q6 PRN PRN Reason: Nausea/Vomiting Last Admin: 11/17/17 06:00 Dose: 4 mg Pantoprazole Sodium (Protonix Ec Tab) 40 mg PO DAILY [facility] Last Admin: 11/20/17 10:57 Dose: Not Given Vitamin B Complex/Vit C/Folic Acid (Nephro-Ken) 1 tab PO 0800 [facility] Last Admin: 11/20/17 08:10 Dose: Not Given - Labs Labs: 11/20/17 06:10 11/20/17 06:10 PT 14.2 SECONDS (9.7-12.2) H 11/20/17 07:32 INR 1.3 11/20/17 07:32 APTT 30 SECONDS (21-34) 11/15/17 06:32 - Constitutional Appears: Well, Non-toxic, Chronically Ill - Head Exam Head Exam: ATRAUMATIC, NORMAL INSPECTION - Eye Exam Eye Exam: EOMI, Scleral icterus - Respiratory Exam Respiratory Exam: Clear to Ausculation Bilateral, NORMAL BREATHING PATTERN. absent: Wheezes - Cardiovascular Exam Cardiovascular Exam: REGULAR RHYTHM, +S1, +S2 - GI/Abdominal Exam GI & Abdominal Exam: Soft, Normal Bowel Sounds. absent: Tenderness Additional comments: Drains in placed, working well. - Neurological Exam Neurological Exam: Alert, Awake, Oriented x3 - Psychiatric Exam Psychiatric exam: Agitated, Anxious, Normal Affect - Skin Skin Exam: Dry, Intact Assessment and Plan - Assessment and Plan (Free Text) Assessment: 77yo WM with hx of sytolic CHF, AFIB, recent GI bleed, and presenting with obstructive jaundice, HoTN, septic shock concerning for acute cholangitis and imaging findings concerning for cholangiocarcinoma. 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 -S/P PTC and drain 11/11/17 -PTC revealed: "Cholangiogram showed common hepatic mass extending into right hepatic duct". I discussed result with IR and concerned for cholangiocarcinoma. -Extracutaneous biliary leak per surgical team, wound care -Continue to monitor microbio. + Stenotrophomonas Maltophilia. Sensitive to cipro. Continue abx management per ID. -Change PPI to PO -PENDING labs: anti-smooth muscle. Anti-mitochondrial negative. -CA19-9, CEA significantly elevated, concerning for malignancy. -We have contacted [facility] for transfer as he may need specialized procedures. Now off vasopressors and stable to transfer to PCU. Discussed with Dr. Lofton and likely transfer to [place]. -Further management pending clinical progress. We will continue to monitor patient course.
--- NOTE | 2017-11-20 14:19 | CP.PCM.PN ---
Subjective - Subjective Subjective: patient seen and examed at bedside for ERCP procedure. patient was off vasopressor for one day. BP is at the low side with AF.K is low too. dicuused with Dr. pimentel. all agreed that parient is unstable to have anesthesia and ERCP procedure today. Objective - Vital Signs/Intake and Output Vital Signs (last 24 hours): Temp Pulse Resp BP Pulse Ox 97.2 F L 91 H 10 L 102/66 97 11/20/17 12:00 11/20/17 13:00 11/20/17 13:00 11/20/17 12:22 11/20/17 12:22 Intake and Output: 11/20/17 11/20/17 06:59 18:59 Intake Total 400 150 Output Total 800 405 Balance -400 -255 - Medications Medications: Current Medications Calcium Acetate (Phoslo) 1,334 mg PO TIDCC [facility] Last Admin: 11/20/17 13:30 Dose: 1,334 mg Heparin Sodium (Porcine) (Heparin) 5,000 units SC Q8 [facility] Last Admin: 11/20/17 13:31 Dose: 5,000 units Hydrocortisone Sodium Succinate (Solu-Cortef) 50 mg IV Q12H [facility] Last Admin: 11/20/17 10:20 Dose: 50 mg Hydromorphone HCl (Dilaudid) 0.5 mg IVP Q4H PRN PRN Reason: Pain, severe (8-10) Last Admin: 11/20/17 06:11 Dose: 0.5 mg Vasopressin 40 units/ Dextrose 40 mls @ 2.4 mls/hr IV .[id number] [facility]; 0.04 UNITS/ MIN PRN Reason: Protocol Last Admin: 11/19/17 22:15 Dose: Not Given Ciprofloxacin (Cipro 400mg/200ml Dsw) 400 mg in 200 mls @ 133 mls/hr IVPB Q24H [facility] PRN Reason: Protocol Last Admin: 11/19/17 16:03 Dose: 133 mls/hr Insulin Aspart (Novolog) 0 unit SC ACHS [facility] PRN Reason: Protocol Last Admin: 11/20/17 11:56 Dose: Not Given Midodrine (Proamatine) 2.5 mg PO TID [facility] Last Admin: 11/20/17 13:30 Dose: 2.5 mg Ondansetron HCl (Zofran Inj) 4 mg IVP Q6 PRN PRN Reason: Nausea/Vomiting Last Admin: 11/17/17 06:00 Dose: 4 mg Pantoprazole Sodium (Protonix Ec Tab) 40 mg PO DAILY [facility] Last Admin: 11/20/17 13:30 Dose: 40 mg Vitamin B Complex/Vit C/Folic Acid (Nephro-Ken) 1 tab PO 0800 [facility] Last Admin: 11/20/17 08:10 Dose: Not Given - Labs Labs: 11/20/17 06:10 11/20/17 06:10 PT 14.2 SECONDS (9.7-12.2) H 11/20/17 07:32 INR 1.3 11/20/17 07:32 APTT 30 SECONDS (21-34) 11/15/17 06:32
--- NOTE | 2017-11-20 14:37 | CP.PCM.PN ---
Subjective - Date & Time of Evaluation Date of Evaluation: 11/20/17 Time of Evaluation: 01:45 - Subjective Subjective: dictated Objective - Vital Signs/Intake and Output Vital Signs (last 24 hours): Temp Pulse Resp BP Pulse Ox 97.2 F L 94 H 10 L 94/62 L 100 11/20/17 12:00 11/20/17 14:00 11/20/17 14:00 11/20/17 13:20 11/20/17 14:00 Intake and Output: 11/20/17 11/20/17 06:59 18:59 Intake Total 400 350 Output Total 800 545 Balance -400 -195 - Medications Medications: Current Medications Calcium Acetate (Phoslo) 1,334 mg PO T[facility]CC [facility] Last Admin: 11/20/17 13:30 Dose: 1,334 mg Heparin Sodium (Porcine) (Heparin) 5,000 units SC Q8 [facility] Last Admin: 11/20/17 13:31 Dose: 5,000 units Hydrocortisone Sodium Succinate (Solu-Cortef) 50 mg IV Q12H [facility] Last Admin: 11/20/17 10:20 Dose: 50 mg Hydromorphone HCl (Dilaudid) 0.5 mg IVP Q4H PRN PRN Reason: Pain, severe (8-10) Last Admin: 11/20/17 06:11 Dose: 0.5 mg Vasopressin 40 units/ Dextrose 40 mls @ 2.4 mls/hr IV .[id number] [facility]; 0.04 UNITS/ MIN PRN Reason: Protocol Last Admin: 11/19/17 22:15 Dose: Not Given Ciprofloxacin (Cipro 400mg/200ml Dsw) 400 mg in 200 mls @ 133 mls/hr IVPB Q24H [facility] PRN Reason: Protocol Last Admin: 11/19/17 16:03 Dose: 133 mls/hr Insulin Aspart (Novolog) 0 unit SC ACHS [facility] PRN Reason: Protocol Last Admin: 11/20/17 11:56 Dose: Not Given Midodrine (Proamatine) 2.5 mg PO TID [facility] Last Admin: 11/20/17 13:30 Dose: 2.5 mg Ondansetron HCl (Zofran Inj) 4 mg IVP Q6 PRN PRN Reason: Nausea/Vomiting Last Admin: 11/17/17 06:00 Dose: 4 mg Pantoprazole Sodium (Protonix Ec Tab) 40 mg PO DAILY [facility] Last Admin: 11/20/17 13:30 Dose: 40 mg Vitamin B Complex/Vit C/Folic Acid (Nephro-Ken) 1 tab PO 0800 [facility] Last Admin: 11/20/17 08:10 Dose: Not Given - Labs Labs: 11/20/17 06:10 11/20/17 06:10 PT 14.2 SECONDS (9.7-12.2) H 11/20/17 07:32 INR 1.3 11/20/17 07:32 APTT 30 SECONDS (21-34) 11/15/17 06:32
--- NOTE | 2017-11-20 14:56 | CP.CCUPN ---
<Jennie Wagner - Last Filed: 11/20/17 15:04> CCU Subjective - Physician Review Subjective (Free Text): 77 yo M w/ PMHx of HTN, A. Fib, CHF, admitted for painless jaundice(Tbil 37.6) and MACIE from [place], in need of emergent HD. Complains of weakness, and isolated episode of nausea, pruritus improving. Pt denies SOB, chest pain, palpitations, abdominal pain, vomiting, fever, chills. Patient to be transferred to [facility] pending GI. No acute events overnight. Pt off pressors and vitals stable. Being transferred to [facility] for further management. 11/20/17 14:54 CCU Objective - Vital Signs / Intake & Output Vital Signs (Last 4 hours): Vital Signs Temp Pulse Resp BP Pulse Ox 11/20/17 14:00 94 H 10 L 100 11/20/17 13:20 93 H 15 94/62 L 74 L 11/20/17 13:00 91 H 10 L 11/20/17 12:22 85 10 L 102/66 97 11/20/17 12:00 97.2 F L 87 11 L 99 11/20/17 11:20 88 12 99/65 L 11/20/17 11:19 84 8 L 94/63 L 100 11/20/17 11:00 87 13 99 Intake and Output (Last 8hrs): Intake & Output 11/19/17 11/20/17 11/20/17 22:59 06:59 14:59 Intake Total 156.8 250 350 Output Total 980 500 545 Balance -823.2 -250 -195 Weight 296 lb 11.875 oz Intake: IV 5 Intake, IV Amount 1.8 150 Right IJ trialysis cath 1.8 150 Oral 150 250 200 Output: Drainage 80 140 R lower cholecystostomy 60 80 Right upper biliary rain 20 60 Urine 900 500 405 Urine, Voided 900 500 405 Other: # Bowel Movements 0 0 0 - Physical Exam Head: Positive for: Atraumatic, Normocephalic Extroacular Muscles: Positive for: EOMI Conjunctiva: Positive for: Icteric Mouth: Positive for: Moist Mucous Membranes Respiratory/Chest: Positive for: Clear to Auscultation, Good Air Exchange. Negative for: Respiratory Distress, Accessory Muscle Use, Wheezes, Rales, Rhonchi Cardiovascular: Positive for: Regular Rate and Rhythm, Normal S1, S2 Abdomen: Positive for: Normal Bowel Sounds. Negative for: Tenderness, Distention, Peritoneal Signs, Guarding, Mass/Organomegaly Lower Extremity: Positive for: Edema (2+ B/L ). Negative for: CALF TENDERNESS Neurological: Positive for: GCS=15, Speech Normal, Memory Normal Skin: Positive for: Other (Jaundinced) Psychiatric: Positive for: Alert, Oriented x 3, Normal Insight, Normal Concentration - Medications Active Medications: Active Medications Generic Name Dose Route Start Last Admin Trade Name Freq PRN Reason Stop Dose Admin Calcium Acetate 1,334 mg 11/11/17 12:00 11/20/17 13:30 Phoslo PO 1,334 mg TIDCC JAQUELINE Administration Heparin Sodium (Porcine) 5,000 units 11/14/17 17:45 11/20/17 13:31 Heparin SC 5,000 units Q8 JAQUELINE Administration Hydrocortisone Sodium Succinate 50 mg 11/16/17 22:00 11/20/17 10:20 Solu-Cortef IV 50 mg Q12H JAQUELINE Administration Hydromorphone HCl 0.5 mg 11/19/17 10:46 11/20/17 06:11 Dilaudid IVP 0.5 mg Q4H PRN Administration Pain, severe (8-10) Vasopressin 40 units/ Dextrose 40 mls @ 2.4 mls/hr 11/10/17 21:30 11/19/17 22 :15 IV Not Given .[id number] JAQUELINE Protocol 0.04 UNITS/MIN Ciprofloxacin 400 mg in 200 mls @ 133 mls/hr 11/14/17 15:30 11/19/17 16:03 Cipro 400mg/200ml Dsw IVPB 133 mls/hr Q24H JAQUELINE Administration Protocol Insulin Aspart 0 unit 11/17/17 16:30 11/20/17 11:56 Novolog SC Not Given ACHS JAQUELINE Protocol Midodrine 2.5 mg 11/18/17 10:00 11/20/17 13:30 Proamatine PO 2.5 mg TID JAQUELINE Administration Ondansetron HCl 4 mg 11/11/17 16:49 11/17/17 06:00 Zofran Inj IVP 4 mg Q6 PRN Administration Nausea/Vomiting Pantoprazole Sodium 40 mg 11/19/17 10:00 11/20/17 13:30 Protonix Ec Tab PO 40 mg DAILY JAQUELINE Administration Vitamin B Complex/Vit C/Folic Acid 1 tab 11/12/17 08:00 11/20/17 08:10 Nephro-Ken PO Not Given 0800 [facility] - Patient Studies Lab Studies: Microbiology Studies 11/19/17 14:02 Gram Stain - Final Bile Body Fluid Culture - Preliminary NO GROWTH AFTER 24 HOURS 11/18/17 06:37 Blood Culture - Preliminary Blood-Thru Central Line NO GROWTH AFTER 48 HOURS 11/18/17 06:37 Blood Culture - Preliminary Blood-Thru Central Line NO GROWTH AFTER 48 HOURS Lab Studies 11/20/17 11/20/17 11/20/17 Range/Units 07:32 06:10 06:10 WBC 27.1 H (4.8-10.8) K/uL RBC 3.11 L (4.40-5.90) Mil/uL Hgb 9.9 L (12.0-18.0) g/dL Hct 28.7 L (35.0-51.0) % MCV 92.1 (80.0-94.0) fL MCH 31.8 H (27.0-31.0) pg MCHC 34.5 (33.0-37.0) g/dL RDW 16.9 H (11.5-14.5) % Plt Count 156 (130-400) K/uL MPV 9.0 (7.2-11.7) fL Neut % (Auto) 88.0 H (50.0-75.0) % Lymph % (Auto) 3.0 L (20.0-40.0) % Laurens % (Auto) 9.0 (0.0-10.0) % Eos % (Auto) 0.0 (0.0-4.0) % Baso % (Auto) 0.0 (0.0-2.0) % Neut # (Auto) 23.8 H (1.8-7.0) K/uL Lymph # (Auto) 0.9 L (1.0-4.3) K/uL Laurens # (Auto) 2.4 H (0.0-0.8) K/uL Eos # (Auto) 0.0 (0.0-0.7) K/uL Baso # (Auto) 0.0 (0.0-0.2) K/uL Neutrophils % (Manual) 85 H (50-75) % Band Neutrophils % 1 (0-2) % Lymphocytes % (Manual) 4 L (20-40) % Monocytes % (Manual) 10 (0-10) % Platelet Estimate Normal (NORMAL) Anisocytosis (manual) Slight Target Cells Slight PT 14.2 H (9.7-12.2) SECONDS INR 1.3 Sodium 146 (132-148) mmol/L Potassium 3.1 L (3.6-5.2) mmol/L Chloride 106 (98-107) mmol/L Carbon Dioxide 28 (22-30) mmol/L Anion Gap 16 (10-20) BUN 87 H (9-20) mg/dL Creatinine 3.5 H (0.8-1.5) mg/dL Est GFR ( Amer) 21 Est GFR (Non-Af Amer) 17 Random Glucose 95 (75-110) mg/dL Calcium 7.5 L (8.6-10.4) mg/dl Phosphorus 4.3 (2.5-4.5) mg/dL Magnesium 1.9 (1.6-2.3) mg/dL Total Bilirubin 23.8 H (0.2-1.3) mg/dL AST 106 H (17-59) U/L ALT 111 H (21-72) U/L Alkaline Phosphatase 213 H (38-126) U/L Total Protein 5.7 L (6.3-8.3) g/dL Albumin 2.6 L (3.5-5.0) g/dL Globulin 3.1 (2.2-3.9) gm/dL Albumin/Globulin Ratio 0.8 L (1.0-2.1) Laboratory Results - last 24 hr 11/20/17 11/20/17 11/20/17 06:10 06:10 07:32 WBC 27.1 H RBC 3.11 L Hgb 9.9 L Hct 28.7 L MCV 92.1 MCH 31.8 H MCHC 34.5 RDW 16.9 H Plt Count 156 MPV 9.0 Neut % (Auto) 88.0 H Lymph % (Auto) 3.0 L Laurens % (Auto) 9.0 Eos % (Auto) 0.0 Baso % (Auto) 0.0 Neut # (Auto) 23.8 H Lymph # (Auto) 0.9 L Laurens # (Auto) 2.4 H Eos # (Auto) 0.0 Baso # (Auto) 0.0 Neutrophils % (Manual) 85 H Band Neutrophils % 1 Lymphocytes % (Manual) 4 L Monocytes % (Manual) 10 Platelet Estimate Normal Anisocytosis (manual) Slight Target Cells Slight PT 14.2 H INR 1.3 Sodium 146 Potassium 3.1 L Chloride 106 Carbon Dioxide 28 Anion Gap 16 BUN 87 H Creatinine 3.5 H Est GFR ( Amer) 21 Est GFR (Non-Af Amer) 17 Random Glucose 95 Calcium 7.5 L Phosphorus 4.3 Magnesium 1.9 Total Bilirubin 23.8 H AST 106 H ALT 111 H Alkaline Phosphatase 213 H Total Protein 5.7 L Albumin 2.6 L Globulin 3.1 Albumin/Globulin Ratio 0.8 L Fingerstick Blood Sugar Results: 84 Review of Systems - Constitutional Constitutional: absent: Fever, Chills - Cardiovascular Cardiovascular: absent: Chest Pain, Dyspnea - Respiratory Respiratory: absent: Cough, Dyspnea - Gastrointestinal Gastrointestinal: absent: Abdominal Pain, Nausea Critical Care Progress Note - Nutrition Nutrition: Nutrition Category Date Time Status Renal Diet [DIET] Diets 11/20/17 Lunch Active Assessment/Plan - Assessment and Plan (Free Text) Assessment: - Assessment and Plan (Free Text) Assessment: Cardiology: - PMHx of A fib and CHF with EF of 40% on recent echo with global hypokenesis A. A fib - Currently rate controlled A. CHF with EF of 40 % - Pro-BNP [place] admission was 54913 Pulmonology - SOB likely 2/2 CHF exacerbation - Currently on [place] GI A. Painless jaundice - T bili improving: - MRCP done at [place] on 10/31 showed intra and extrahepatic biliary dilation with common bile duct measuring 17 mm in the seth hepatis - Right cholecystostomy and biliary drains placed 11/11 - GI, Dr. Neville consulted. Recommend pt follow up with [facility] for specialist care - Surgery, Dr. Vaughn is consulted - Pt maintaining BP off pressors - Continue cipro - Positive stool occult - Negative hepatitis panel - Macias d/christina Renal A. 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 Carolina, pt stable and renal fxn improving - RIJ trialysis cath inserted on 11/10/17 - Nephro, Dr. Carolina is consulted Heme/onc -CEA 3.4, CA 19-9 798 - Heme/onc, Dr. Jin is consulted. - GI, Dr. Neville consulted and recommend following up with specialist at [facility] Endo A. Hyperglycemia - No HgbA1c on record. Hyperglycemia likely 2/2 steroids - HgbA1c 5.6 - ISS - Accucheck ID A. Septic shock - WBC count up 27.1 today - Hypotension corrected, no longer on pressors - Repeat blood culture grew Stenotrophomonas Maltophilia. - Currently on cipro Hypokalemia -K 3.1, replete w/ 20mEq KCL Prophylaxis - Protonix -heparin 5000sc q8 - SCDs - PT/OT - Date & Time Date: 11/20/17 Time: 15:08 <Andres Mcdaniel - Last Filed: 11/20/17 18:03> CCU Objective - Vital Signs / Intake & Output Vital Signs (Last 4 hours): Vital Signs Temp Pulse Resp BP Pulse Ox 11/20/17 17:00 88 11 L 98 11/20/17 16:20 90 11 L 91/61 L 97 11/20/17 16:00 97.4 F L 89 10 L 100 11/20/17 15:42 88 11 L 82/54 L 100 11/20/17 15:41 86 12 74/50 L 100 11/20/17 15:40 91 H 10 L 84/52 L 100 11/20/17 15:39 94 H 9 L 83/53 L 100 11/20/17 15:38 89 10 L 82/52 L 100 11/20/17 15:37 91 H 10 L 88/56 L 99 11/20/17 15:20 88 11 L 83/54 L 100 11/20/17 15:00 85 11 L 100 11/20/17 14:20 85 10 L 93/65 L 100 Intake and Output (Last 8hrs): Intake & Output 11/20/17 11/20/17 11/20/17 06:59 14:59 22:59 Intake Total 250 420 250 Output Total 500 545 300 Balance -250 -125 -50 Weight 296 lb 11.875 oz Intake: Intake, IV Amount 150 200 Right IJ trialysis cath 150 200 Oral 250 270 50 Output: Drainage 140 R lower cholecystostomy 80 Right upper biliary rain 60 Urine 500 405 300 Urine, Voided 500 405 300 Other: # Bowel Movements 0 0 0 - Medications Active Medications: Active Medications Generic Name Dose Route Start Last Admin Trade Name Freq PRN Reason Stop Dose Admin Calcium Acetate 1,334 mg 11/11/17 12:00 11/20/17 17:02 Phoslo PO 1,334 mg TIDCC JAQUELINE Administration Heparin Sodium (Porcine) 5,000 units 11/14/17 17:45 11/20/17 13:31 Heparin SC 5,000 units Q8 JAQUELINE Administration Hydrocortisone Sodium Succinate 50 mg 11/16/17 22:00 11/20/17 10:20 Solu-Cortef IV 50 mg Q12H JAQUELINE Administration Hydromorphone HCl 0.5 mg 11/19/17 10:46 11/20/17 06:11 Dilaudid IVP 0.5 mg Q4H PRN Administration Pain, severe (8-10) Vasopressin 40 units/ Dextrose 40 mls @ 2.4 mls/hr 11/10/17 21:30 11/20/17 16 :58 IV Not Given .[id number] [facility] Protocol 0.04 UNITS/MIN Ciprofloxacin 400 mg in 200 mls @ 133 mls/hr 11/14/17 15:30 11/20/17 15:04 Cipro 400mg/200ml Dsw IVPB 133 mls/hr Q24H JAQUELINE Administration Protocol Insulin Aspart 0 unit 11/17/17 16:30 11/20/17 16:58 Novolog SC Not Given ACHS [facility] Protocol Midodrine 2.5 mg 11/18/17 10:00 11/20/17 17:02 Proamatine PO 2.5 mg TID JAQUELINE Administration Ondansetron HCl 4 mg 11/11/17 16:49 11/17/17 06:00 Zofran Inj IVP 4 mg Q6 PRN Administration Nausea/Vomiting Pantoprazole Sodium 40 mg 11/19/17 10:00 11/20/17 13:30 Protonix Ec Tab PO 40 mg DAILY JAQUELINE Administration Vitamin B Complex/Vit C/Folic Acid 1 tab 11/12/17 08:00 11/20/17 08:10 Nephro-Ken PO Not Given 0800 [facility] - Patient Studies Lab Studies: Microbiology Studies 11/19/17 14:02 Gram Stain - Final Bile Body Fluid Culture - Preliminary NO GROWTH AFTER 24 HOURS 11/18/17 06:37 Blood Culture - Preliminary Blood-Thru Central Line NO GROWTH AFTER 48 HOURS 11/18/17 06:37 Blood Culture - Preliminary Blood-Thru Central Line NO GROWTH AFTER 48 HOURS Lab Studies 11/20/17 11/20/17 11/20/17 Range/Units 07:32 06:10 06:10 WBC 27.1 H (4.8-10.8) K/uL RBC 3.11 L (4.40-5.90) Mil/uL Hgb 9.9 L (12.0-18.0) g/dL Hct 28.7 L (35.0-51.0) % MCV 92.1 (80.0-94.0) fL MCH 31.8 H (27.0-31.0) pg MCHC 34.5 (33.0-37.0) g/dL RDW 16.9 H (11.5-14.5) % Plt Count 156 (130-400) K/uL MPV 9.0 (7.2-11.7) fL Neut % (Auto) 88.0 H (50.0-75.0) % Lymph % (Auto) 3.0 L (20.0-40.0) % Laurens % (Auto) 9.0 (0.0-10.0) % Eos % (Auto) 0.0 (0.0-4.0) % Baso % (Auto) 0.0 (0.0-2.0) % Neut # (Auto) 23.8 H (1.8-7.0) K/uL Lymph # (Auto) 0.9 L (1.0-4.3) K/uL Laurens # (Auto) 2.4 H (0.0-0.8) K/uL Eos # (Auto) 0.0 (0.0-0.7) K/uL Baso # (Auto) 0.0 (0.0-0.2) K/uL Neutrophils % (Manual) 85 H (50-75) % Band Neutrophils % 1 (0-2) % Lymphocytes % (Manual) 4 L (20-40) % Monocytes % (Manual) 10 (0-10) % Platelet Estimate Normal (NORMAL) Anisocytosis (manual) Slight Target Cells Slight PT 14.2 H (9.7-12.2) SECONDS INR 1.3 Sodium 146 (132-148) mmol/L Potassium 3.1 L (3.6-5.2) mmol/L Chloride 106 (98-107) mmol/L Carbon Dioxide 28 (22-30) mmol/L Anion Gap 16 (10-20) BUN 87 H (9-20) mg/dL Creatinine 3.5 H (0.8-1.5) mg/dL Est GFR ( Amer) 21 Est GFR (Non-Af Amer) 17 Random Glucose 95 (75-110) mg/dL Calcium 7.5 L (8.6-10.4) mg/dl Phosphorus 4.3 (2.5-4.5) mg/dL Magnesium 1.9 (1.6-2.3) mg/dL Total Bilirubin 23.8 H (0.2-1.3) mg/dL AST 106 H (17-59) U/L ALT 111 H (21-72) U/L Alkaline Phosphatase 213 H (38-126) U/L Total Protein 5.7 L (6.3-8.3) g/dL Albumin 2.6 L (3.5-5.0) g/dL Globulin 3.1 (2.2-3.9) gm/dL Albumin/Globulin Ratio 0.8 L (1.0-2.1) Laboratory Results - last 24 hr 11/20/17 11/20/17 11/20/17 06:10 06:10 07:32 WBC 27.1 H RBC 3.11 L Hgb 9.9 L Hct 28.7 L MCV 92.1 MCH 31.8 H MCHC 34.5 RDW 16.9 H Plt Count 156 MPV 9.0 Neut % (Auto) 88.0 H Lymph % (Auto) 3.0 L Laurens % (Auto) 9.0 Eos % (Auto) 0.0 Baso % (Auto) 0.0 Neut # (Auto) 23.8 H Lymph # (Auto) 0.9 L Laurens # (Auto) 2.4 H Eos # (Auto) 0.0 Baso # (Auto) 0.0 Neutrophils % (Manual) 85 H Band Neutrophils % 1 Lymphocytes % (Manual) 4 L Monocytes % (Manual) 10 Platelet Estimate Normal Anisocytosis (manual) Slight Target Cells Slight PT 14.2 H INR 1.3 Sodium 146 Potassium 3.1 L Chloride 106 Carbon Dioxide 28 Anion Gap 16 BUN 87 H Creatinine 3.5 H Est GFR ( Amer) 21 Est GFR (Non-Af Amer) 17 Random Glucose 95 Calcium 7.5 L Phosphorus 4.3 Magnesium 1.9 Total Bilirubin 23.8 H AST 106 H ALT 111 H Alkaline Phosphatase 213 H Total Protein 5.7 L Albumin 2.6 L Globulin 3.1 Albumin/Globulin Ratio 0.8 L Critical Care Progress Note - Nutrition Nutrition: Nutrition Category Date Time Status Renal Diet [DIET] Diets 11/20/17 Lunch Active Attending/Attestation - Attestation I have personally seen and examined this patient.: Yes I have fully participated in the care of the patient.: Yes I have reviewed all pertinent clinical information: Yes Notes (Text): 11/20/17 18:01 patient seen and examined in the intensive care unit. Patient is off pressors Patient is alert and oriented 3 Denies any complaints Patient will be transferred to [facility] for further management and treatment
--- NOTE | 2017-11-20 15:02 | CP.PCM.PN ---
Subjective - Date & Time of Evaluation Date of Evaluation: 11/20/17 Time of Evaluation: 15:00 - Subjective Subjective: Nephrology Consultation Note Assessment: critical oligoanuric MACIE likely due to ATN due to shock with sepsis ? bile cast nephropathy. other possible causes may include hepato-renal, recent IV contrast exposure: started HD 11/11/17: IMPROVING [facility]AGMA, hypokalemia and hypernatremia obstructive jaundice ? possible cause as pancreatic mass/cholangiocarcinoma HTN, CHF, A fib, morbd obesity moderate TR left 2 cm adrenal adenoma hyperphosphatemia Anemia s/p cholecystotomy tube Plan UOP better (>1 L/day) and BUN/cr stable. Hence, no acute need for dialysis today. last HD done 11/15/17. can d/c dialysis catheter from renal perspective. maintain hemodynamics stable. avoid hypotension monitor I/O daily weights and renal function with BMP added phoslo, continue same GI, ID, heme/onc following plan for ERCP once stable. pt may be a possible transfer to tertiary care center today dose of KCL today 40 meq. encourage free water intake work up for adrenal adenoma later as outpt once stable Dose meds/antibiotics for reduced GFR. Avoid fleets enema/magnesium based laxatives. Avoid nephrotoxins/NSAIDs/ iodinated contrast (unless needed emergently) Glycemic control, Further work up for as per primary team. Thanks for allowing me to participate in care of your patient. Please call if any Qs. had d/w family and team Dr Jairo Carolina Office: [phone] reason for consult: MACIE HPI: Pt is a 77 y/o M with hx of HTN, CHF, A fib, morbd obesity recently diagnosed with jaundice and undergoing work up for it, so far suggestive of pancreatic mass, admitted to [facility] with MACIE, decreased urine output and rise in bili, he was found to have hypotension prior to ERCP hence was transferred to [place]. Pt had dialysis catheter placed and transferred to [facility] for dialysis initiation renal consult for MACIE management. pt feels ill and tired. has decresaed appetite. no aware about kidney disease in past says not making much urine no OTC/nsaids/herba meds CT with contrast done 10/30 evening. cr 10/31 AM 1.0 low BP noted, pt requiring pressors ROS: he denies SOB/chest pain/nausea/vomitting. rest all other neg except as mentioned in HPI siu removed. Physical Examination: General Appearance: Comfortable, co-operative. no acute distress Vitals reviewed and noted as below Head; Atraumatic, normocephalic ENT: no ulcers no thrush. Tongue is midline/moist. Oropharynx: no rash or ulcers. EYES: Pupils are equal, round and reactive to light accommodation. Eye muscles and extraocular movement intact. Sclera is icteric. Neck; supple no lymphadenopathy, no thyromegaly or bruit Lungs: normal respiratory rate/effort. Breath sounds appears clear b/l anteriorly Heart: Normal rate. s1s2 normal. No rub or gallop. Extremities: no edema. No varicose veins Neurological: Patient is alert, awake, oriented x 3 follows commands, no focal deifict. Skin: dry and warm. Normal turgor. No rash. Palpitation: Normal elasticity for age. grossly yellow Abdomen: Abdomen is soft non tender no apparent organomegaly Psych: normal insight. has normal affect and mood MSK: no specific joint tenderness or swelling. Digits and nails normal, no deformity : kidney not palpable. bladder not distended . access: Rt [facility] Labs/imaging/EKG reviewed. Past medical history, past surgical history, social history, allergy reviewed and noted as below Family hx; no hx of CKD. rest non contributory work up: left adrenal 2 cm adenoma moderate TR and mildly reduced LVEF UA 100 prot and GNR Bilirubin 36 initially now down trending Objective - Vital Signs/Intake and Output Vital Signs (last 24 hours): Temp Pulse Resp BP Pulse Ox 97.2 F L 94 H 10 L 94/62 L 100 11/20/17 12:00 11/20/17 14:00 11/20/17 14:00 11/20/17 13:20 11/20/17 14:00 Intake and Output: 11/20/17 11/20/17 06:59 18:59 Intake Total 400 350 Output Total 800 545 Balance -400 -195 - Medications Medications: Current Medications Calcium Acetate (Phoslo) 1,334 mg PO TIDCC [facility] Last Admin: 11/20/17 13:30 Dose: 1,334 mg Heparin Sodium (Porcine) (Heparin) 5,000 units SC Q8 [facility] Last Admin: 11/20/17 13:31 Dose: 5,000 units Hydrocortisone Sodium Succinate (Solu-Cortef) 50 mg IV Q12H [facility] Last Admin: 11/20/17 10:20 Dose: 50 mg Hydromorphone HCl (Dilaudid) 0.5 mg IVP Q4H PRN PRN Reason: Pain, severe (8-10) Last Admin: 11/20/17 06:11 Dose: 0.5 mg Vasopressin 40 units/ Dextrose 40 mls @ 2.4 mls/hr IV .[id number] JAQUELINE; 0.04 UNITS/ MIN PRN Reason: Protocol Last Admin: 11/19/17 22:15 Dose: Not Given Ciprofloxacin (Cipro 400mg/200ml Dsw) 400 mg in 200 mls @ 133 mls/hr IVPB Q24H JAQUELINE PRN Reason: Protocol Last Admin: 11/19/17 16:03 Dose: 133 mls/hr Insulin Aspart (Novolog) 0 unit SC ACHS JAQUELINE PRN Reason: Protocol Last Admin: 11/20/17 11:56 Dose: Not Given Midodrine (Proamatine) 2.5 mg PO TID [facility] Last Admin: 11/20/17 13:30 Dose: 2.5 mg Ondansetron HCl (Zofran Inj) 4 mg IVP Q6 PRN PRN Reason: Nausea/Vomiting Last Admin: 11/17/17 06:00 Dose: 4 mg Pantoprazole Sodium (Protonix Ec Tab) 40 mg PO DAILY [facility] Last Admin: 11/20/17 13:30 Dose: 40 mg Vitamin B Complex/Vit C/Folic Acid (Nephro-Ken) 1 tab PO 0800 [facility] Last Admin: 11/20/17 08:10 Dose: Not Given - Labs Labs: 11/20/17 06:10 11/20/17 06:10 PT 14.2 SECONDS (9.7-12.2) H 11/20/17 07:32 INR 1.3 11/20/17 07:32 APTT 30 SECONDS (21-34) 11/15/17 06:32
[2017-11-20] MEDS: Ciprofloxacin 400mg/200ml D5W 400 MG/200 ML BAG IVPB SCH (15:04)
[2017-11-20] MEDS: Vasopressin 40 UNITS in Dextrose 5% In Water 38 ML IV SCH (16:58)
--- NOTE | 2017-11-21 00:40 | PN ---
DATE: 11/20/2017 INFECTIOUS DISEASE FOLLOWUP SUBJECTIVE: The patient remains afebrile. He says they had to adjust his biliary drain today and he was seen by GI also. He was n.p.o. as , and he was going to go to the other hospital; however, his white count has increased to 27,000. He was on methyl prednisone. Otherwise, clinically he looks better though. PHYSICAL EXAMINATION: GENERAL: He is awake, alert. VITAL SIGNS: Blood pressure is 82/54 and without vasopressors. T-max is 97.4, pulse 88 and respirations are 11. HEENT: Mild icterus present. NECK: Supple. LUNGS: Clear. HEART: S1, S2 are regular. ABDOMEN: Soft, flabby, nontender. Has a cholecystotomy tube present. EXTREMITIES: Bound with foot protectors at this time. LABORATORY DATA: Labs are noted. ASSESSMENT AND PLAN: He has been on antibiotics since admission. His white count creeped up from 14 onwards now last three to four days. Today, it was 27.1, however. The neutrophils are 88, lymphs are 3, there is no band. So, I think part of this is due to steroids and sodium is 146, potassium 3.1, chlorides are 106, anion gap is 16, creatinine is 3.5, is better. His LFTs are little better since I took away the Merrem. He tolerated Merrem well in spite of being allergic, and he is left on Cipro at this time. He has Stenotrophomonas in the body fluid, not in the blood. The body fluid is negative. Blood cultures are negative. Urine culture is negative recently. I think the steroids should be tapered off or removed. They are put by the primary. He is status post cholecystotomy tube, renal failure, obstructive jaundice, came with a bilirubin of 36. Hopefully, he will improve because he is looking clinically better. Stephania Abdi MD
[2017-11-21] MEDS: HYDROmorphone 0.5 mg/0.5 ml ISec IVP PRN ×4 (02:03→17:16)
[2017-11-21 06:35] LABS: BASO # 0.1 K/uL (0.0-0.2); BASO % 0.3 % (0.0-2.0); EOS % 0.1 % (0.0-4.0); HEMOGLOBIN 10.7 g/dL (12.0-18.0); LYMPH # 13.7 K/uL (1.0-4.3); LYMPH % 43.6 % (20.0-40.0); MEAN CELL VOLUME 92.5 fL (80.0-94.0); MEAN CORPUSCULAR HGB CONC 35.6 g/dL (33.0-37.0); MEAN PLATELET VOLUME 9.3 fL (7.2-11.7); MONO # 1.9 K/uL (0.0-0.8); MONO % 6.2 % (0.0-10.0); NEUT # 15.6 K/uL (1.8-7.0); NEUT % 49.8 % (50.0-75.0); PLATELET COUNT 176 K/uL (130-400); RBC 3.25 Mil/uL (4.40-5.90); RED CELL DISTRIBUTION WIDTH 17.1 % (11.5-14.5); WHITE BLOOD COUNT 31.3 K/uL (4.8-10.8)
[2017-11-21 06:45] LABS: ALB/GLOB RATIO 0.8 (1.0-2.1); ALBUMIN 2.9 g/dL (3.5-5.0); ALT/SGPT 107 U/L (21-72); AST/SGOT 117 U/L (17-59); BLOOD UREA NITROGEN 89 mg/dL (9-20); CALCIUM 7.8 mg/dl (8.6-10.4); GFR AFRICAN-AMERICAN 21; GFR NON-AFRICAN AMERICAN 17
[2017-11-21] MEDS: (Novolog) Insulin Aspart, Recombinant 100 u/ml 10 ml vial SC SCH ×4 (07:38→21:30)
[2017-11-21] MEDS: Vasopressin 40 UNITS in Dextrose 5% In Water 38 ML IV SCH (07:39)
[2017-11-21] MEDS: Multivitamin Vitamin B Complex (Nephro-Vite) Tab PO SCH (09:00)
[2017-11-21] MEDS: Pantoprazole 40 mg EC Tab PO SCH (09:37)
[2017-11-21] MEDS ORDERED: Potassium Chloride 20 mEq ER Tab PO SCH (10:00)
--- NOTE | 2017-11-21 10:00 | CP.PCM.PN ---
Subjective - Date & Time of Evaluation Date of Evaluation: 11/21/17 Time of Evaluation: 09:43 - Subjective Subjective: patient is lying on bed,wanted me to adjust his bed. complaining of uncomfortable to stay on bed and wants frquent bed adjustment to make him comfortable No fever,tolerating diet,no pruritus,no vomiting,no abdominal pain, d/w RN at bedside and GI Fellow Dr Cantu waiting to transfer to [facility] Objective - Vital Signs/Intake and Output Vital Signs (last 24 hours): Temp Pulse Resp BP Pulse Ox 97.4 F L 84 8 L 102/65 98 11/21/17 08:00 11/21/17 09:00 11/21/17 09:00 11/21/17 07:20 11/21/17 08:00 Intake and Output: 11/21/17 11/21/17 06:59 18:59 Intake Total 400 Output Total 750 Balance -350 - Medications Medications: Current Medications Calcium Acetate (Phoslo) 1,334 mg PO TIDCC [facility] Last Admin: 11/21/17 09:00 Dose: 1,334 mg Heparin Sodium (Porcine) (Heparin) 5,000 units SC Q8 [facility] Last Admin: 11/21/17 06:30 Dose: 5,000 units Hydrocortisone Sodium Succinate (Solu-Cortef) 50 mg IV Q12H [facility] Last Admin: 11/21/17 09:34 Dose: 50 mg Hydromorphone HCl (Dilaudid) 0.5 mg IVP Q4H PRN PRN Reason: Pain, severe (8-10) Last Admin: 11/21/17 06:31 Dose: 0.5 mg Vasopressin 40 units/ Dextrose 40 mls @ 2.4 mls/hr IV .[id number] JAQUELINE; 0.04 UNITS/ MIN PRN Reason: Protocol Last Admin: 11/21/17 07:39 Dose: Not Given Ciprofloxacin (Cipro 400mg/200ml Dsw) 400 mg in 200 mls @ 133 mls/hr IVPB Q24H [facility] PRN Reason: Protocol Last Admin: 11/20/17 15:04 Dose: 133 mls/hr Insulin Aspart (Novolog) 0 unit SC ACHS JAQUELINE PRN Reason: Protocol Last Admin: 11/21/17 07:38 Dose: Not Given Midodrine (Proamatine) 2.5 mg PO TID [facility] Last Admin: 11/21/17 09:37 Dose: 2.5 mg Ondansetron HCl (Zofran Inj) 4 mg IVP Q6 PRN PRN Reason: Nausea/Vomiting Last Admin: 11/17/17 06:00 Dose: 4 mg Pantoprazole Sodium (Protonix Ec Tab) 40 mg PO DAILY [facility] Last Admin: 11/21/17 09:37 Dose: 40 mg Potassium Chloride (K-Dur 20 Meq Er Tab) 40 meq PO DAILY [facility] Stop: 11/21/17 10:01 Vitamin B Complex/Vit C/Folic Acid (Nephro-Ken) 1 tab PO 0800 [facility] Last Admin: 11/21/17 09:00 Dose: 1 tab - Labs Labs: 11/21/17 06:24 11/21/17 06:22 PT 14.2 SECONDS (9.7-12.2) H 11/20/17 07:32 INR 1.3 11/20/17 07:32 APTT 30 SECONDS (21-34) 11/15/17 06:32 - Constitutional Appears: No Acute Distress, Chronically Ill - Head Exam Head Exam: ATRAUMATIC. absent: NORMAL INSPECTION (icteric) - Eye Exam Eye Exam: Scleral icterus - ENT Exam ENT Exam: Mucous Membranes Moist, Normal Exam - Neck Exam Neck Exam: Full ROM, Normal Inspection - Respiratory Exam Respiratory Exam: Clear to Ausculation Bilateral - Cardiovascular Exam Cardiovascular Exam: REGULAR RHYTHM - GI/Abdominal Exam GI & Abdominal Exam: Soft (has two drain on right sbdomen.Skin wound is dry without signs of infectionon his right drain site. Left side abdomen wall weeping skin with ecchymotic skin with edematous skin.), Normal Bowel Sounds. absent: Tenderness, Mass - Extremities Exam Extremities Exam: Full ROM - Back Exam Back Exam: NORMAL INSPECTION - Neurological Exam Neurological Exam: Awake, Oriented x3 - Psychiatric Exam Psychiatric exam: Normal Mood - Skin Skin Exam: Erythema (left abdominal fold weeping skin with erythema,right drain x2,Excoriated skin looks clean and dry) Assessment and Plan - Assessment and Plan (Free Text) Plan: 1. Increasing leukocytosis and hypotension/ascending cholangitis s/p Septic Shock secondary to ascending Cholangitis and hypotension off pressors since yesterday, Mean arterial pressure above 60,he is alert and oriented,passing urine,tolerating diet (He was brought from [place] on pressor for emergent dialysis Patient was septic and hypotensive on vasopressin) Increasing Leukocytosis is up today its 30,no fever Right IJ cath site purulent looking discharge noted,IJ removed Ciprofloxacin 400mg IVPB Q24 (active since 11/14/17) Meropenem 500mg IVPB QAM (started on 11/11/17 ,d/c ed on 11/19/2017 and restarted on 11/21/2017) Vancomycin given Discussed with Dr. Abdi this afternoon blood cultures negative since admission,Bile (11/11/17): Stenotrophomonas Maltophilia continue solucortef on Midodrine repeat blood culture drawn,IJ site swap culture done We will upgrade back to ICU 1) Painless Obstructive Jaundice /supecting cholangiocarcinoma ERCP was canceled at [facility] due to hypotension Dr. 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 Deanne Jin on board d/w Dr Jin. Dr Jin discussed with hepatobiliary surgeon Dr Emerson at [facility]. He will be seeing him at [facility] 3) Acute Renal Failure Dr Carolina group on board d/w Dr Carolina today .Righ IJ removed His UOP better and BUN/cr stable.As per Dr Carolina no acute need for dialysis last HD done 11/15/17. continue to monitor for spontaneous renal recovery. 4) Coagulopathy s/p elevated INR requiring FFP. patient was on coumadin for known atrial fibrillation history Aspirin secondary allergic reaction 5) Atrial fibrillation Patient is on pressor and off anti-hypertensive Now on DVT prophylaxis dosing Echocardiogram (10/31/17) systolic function is mildly impaired, global hypokinesis of left ventricle,EF 40% he has prior admission for coumadin toxicity/Hypercoagulation off aniticoag now except hep sq for dvt prophylaxis 6. Congestive Heart Failure, Systolic Cardiology Dr. Combs on board Discussed with him yesterday off anti-hypertensive,off pressor today Aspirin secondary allergic reaction 7 . Prophylactic measure patient is on heparin sq, protonix 40mg IV daily 8.Skin care s/p Drain site leak with skin excoriation-Examined today.looks dry and clean Ecchymotic and Edematous weeping skin noted on his left abdominal wall/skin care as per wound care team 9. Code status - Full code No advance directives Patient was doing well,travelling and taking care of his dementia before he got sick and got admitted to hospital. Patient's only child Christopher will make decision for him. I had long discussion with his son at bedside about his sepsis,hypotension,pending transfer to [facility] and likely malignancy. He asked me to stabilize him to take him home.He understood his condition. He was tearful during the conversation. Palliative care on board. we will follow
--- NOTE | 2017-11-21 10:03 | CP.PCM.PN ---
Subjective - Date & Time of Evaluation Date of Evaluation: 11/21/17 Time of Evaluation: 10:00 - Subjective Subjective: GI Fellow PGY4, progress note. Patient seen and examined at bedside. Biliary drain wound care present taking good care of skin breakdown from bile leak, improving since Saturday. No complaints. Patient accepted at [facility], pending insurance, open bed. Passing flatus and BMs. Nurse reports poor diet intake. 12pt ROS completed and negative except for above. Objective - Vital Signs/Intake and Output Vital Signs (last 24 hours): Temp Pulse Resp BP Pulse Ox 97.4 F L 84 8 L 102/65 98 11/21/17 08:00 11/21/17 09:00 11/21/17 09:00 11/21/17 07:20 11/21/17 08:00 Intake and Output: 11/21/17 11/21/17 06:59 18:59 Intake Total 400 Output Total 750 Balance -350 - Medications Medications: Current Medications Calcium Acetate (Phoslo) 1,334 mg PO TIDCC [facility] Last Admin: 11/21/17 09:00 Dose: 1,334 mg Heparin Sodium (Porcine) (Heparin) 5,000 units SC Q8 [facility] Last Admin: 11/21/17 06:30 Dose: 5,000 units Hydrocortisone Sodium Succinate (Solu-Cortef) 50 mg IV Q12H [facility] Last Admin: 11/21/17 09:34 Dose: 50 mg Hydromorphone HCl (Dilaudid) 0.5 mg IVP Q4H PRN PRN Reason: Pain, severe (8-10) Last Admin: 11/21/17 06:31 Dose: 0.5 mg Vasopressin 40 units/ Dextrose 40 mls @ 2.4 mls/hr IV .[id number] JAQUELINE; 0.04 UNITS/ MIN PRN Reason: Protocol Last Admin: 11/21/17 07:39 Dose: Not Given Ciprofloxacin (Cipro 400mg/200ml Dsw) 400 mg in 200 mls @ 133 mls/hr IVPB Q24H JAQUELINE PRN Reason: Protocol Last Admin: 11/20/17 15:04 Dose: 133 mls/hr Insulin Aspart (Novolog) 0 unit SC ACHS JAQUELINE PRN Reason: Protocol Last Admin: 11/21/17 07:38 Dose: Not Given Midodrine (Proamatine) 2.5 mg PO TID [facility] Last Admin: 11/21/17 09:37 Dose: 2.5 mg Ondansetron HCl (Zofran Inj) 4 mg IVP Q6 PRN PRN Reason: Nausea/Vomiting Last Admin: 11/17/17 06:00 Dose: 4 mg Pantoprazole Sodium (Protonix Ec Tab) 40 mg PO DAILY [facility] Last Admin: 11/21/17 09:37 Dose: 40 mg Potassium Chloride (K-Dur 20 Meq Er Tab) 40 meq PO DAILY [facility] Stop: 11/21/17 10:01 Vitamin B Complex/Vit C/Folic Acid (Nephro-Ken) 1 tab PO 0800 [facility] Last Admin: 11/21/17 09:00 Dose: 1 tab - Labs Labs: 11/21/17 06:24 11/21/17 06:22 PT 14.2 SECONDS (9.7-12.2) H 11/20/17 07:32 INR 1.3 11/20/17 07:32 APTT 30 SECONDS (21-34) 11/15/17 06:32 - Constitutional Appears: Non-toxic, Chronically Ill - Head Exam Head Exam: ATRAUMATIC, NORMAL INSPECTION, NORMOCEPHALIC - Eye Exam Eye Exam: EOMI, Scleral icterus - ENT Exam ENT Exam: Mucous Membranes Moist, Normal Exam - Respiratory Exam Respiratory Exam: Clear to Ausculation Bilateral, NORMAL BREATHING PATTERN. absent: Wheezes - Cardiovascular Exam Cardiovascular Exam: REGULAR RHYTHM, +S1, +S2 - GI/Abdominal Exam GI & Abdominal Exam: Soft, Normal Bowel Sounds. absent: Tenderness Additional comments: Biliary drains in place. Dressing clean, dry intact. - Extremities Exam Extremities Exam: Normal Inspection - Neurological Exam Neurological Exam: Alert, Awake, CN II-XII Intact - Psychiatric Exam Psychiatric exam: Depressed, Normal Affect, Normal Mood - Skin Skin Exam: Dry, Warm Additional comments: Jaundiced. Assessment and Plan - Assessment and Plan (Free Text) Assessment: 77yo WM with hx of sytolic CHF, AFIB, recent GI bleed, and presenting with obstructive jaundice, HoTN, septic shock concerning for acute cholangitis and imaging findings concerning for cholangiocarcinoma. 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 -S/P PTC and drain 11/11/17 -PTC revealed: "Cholangiogram showed common hepatic mass extending into right hepatic duct". I discussed result with IR and concerned for cholangiocarcinoma. -Extracutaneous biliary leak per surgical team, wound care -Continue to monitor microbio. + Stenotrophomonas Maltophilia. Sensitive to cipro. Continue abx management per ID. -Continue PPI -CA19-9, CEA significantly elevated, concerning for malignancy. -Transfer to [facility]. Accepting provider, Dr. Lofton. Pending insurance auth and beds. -Further management pending clinical progress. We will continue to monitor patient course.
[2017-11-21 10:29] LABS: ANISOCYTOSIS SLIGHT; BANDS 4 % (0-2); LYMPHOCYTE 2 % (20-40); MONOCYTE 10 % (0-10); MYELOCYTE 2 % (0-0); NEUTROPHIL 82 % (50-75); PLATELET ESTIMATE NORMAL (NORMAL); TOTAL CELLS COUNTED 100
[2017-11-21 10:30] LABS: TARGET CELLS MODERATE
--- NOTE | 2017-11-21 13:11 | PN ---
DATE: 11/21/2017 LOCATION: ICU 18. SUBJECTIVE: This is a 77-year-old male seen earlier this morning, has out under the impression the patient to be transferred to [facility] last night, as I was informed. PHYSICAL EXAMINATION: GENERAL: He appears to be awake, alert, and oriented. VITAL SIGNS: Afebrile with pulse of 90, respiratory rate of 10 to 12, blood pressure 102/64 as per this morning. The entire chart is reviewed and the most recent lab results showed leucocytes of 31.3, hemoglobin 10.7, hematocrit 30 with 01:36, potassium 3.1, BUN 89, creatinine 3.5, sodium 128, calcium 7.8. Total bilirubin more than 27 with subsequent increase of AST, ALT, and alkaline phosphatase 117, 107, 222 with albumin 2.9. The patient tolerated oral intake while supper and he had enough bowel movement this morning. More than one trial done to prefer to ask Radiology staff to perform impression of the common bile duct lesion, none done so far. In short, the patient has obstructive jaundice with radiology study results indicative of possible cholangiocarcinoma extended into the right intrahepatic duct. This case discussed at length again with the family as well as the anesthesia staff, who have great concern of performing the ERCP, in the meantime due to the patient's clinical status and his hypotension as well as his low potassium. At this point, we will not do any aggressive procedure until a decision to be made to transfer the patient to [facility] in [place], [place]. We will followup closely with you. Sandeep Torre MD
[2017-11-21] MEDS: Ciprofloxacin 400mg/200ml D5W 400 MG/200 ML BAG IVPB SCH (16:00)
[2017-11-21] MEDS ORDERED: Vancomycin 1 gm/NS 200 ml 1 GM/200 ML BAG IVPB ONE (16:33)
--- NOTE | 2017-11-21 18:52 | CP.PCM.PN ---
Subjective - Date & Time of Evaluation Date of Evaluation: 11/21/17 Time of Evaluation: 18:49 - Subjective Subjective: Nephrology Consultation Note Assessment: critical oligoanuric MACIE likely due to ATN due to shock with sepsis ? bile cast nephropathy. other possible causes may include hepato-renal, recent IV contrast exposure: started HD 11/11/17: IMPROVING HAGMA, hypokalemia and hypernatremia obstructive jaundice ? possible cause as pancreatic mass/cholangiocarcinoma HTN, CHF, A fib, morbd obesity moderate TR left 2 cm adrenal adenoma hyperphosphatemia Anemia s/p cholecystotomy tube Plan UOP better (>1 L/day) and BUN/cr stable. Hence, no acute need for dialysis today. last HD done 11/15/17. d/w team to d/c dialysis catheter now. check pus culture. maintain hemodynamics stable. avoid hypotension monitor I/O daily weights and renal function with BMP added phoslo, continue same GI, ID, heme/onc following pt is pending transfer to tertiary care center supplement lytes as needed work up for adrenal adenoma later as outpt once stable Dose meds/antibiotics for reduced GFR. Avoid fleets enema/magnesium based laxatives. Avoid nephrotoxins/NSAIDs/ iodinated contrast (unless needed emergently) Glycemic control, Further work up for as per primary team. Thanks for allowing me to participate in care of your patient. Please call if any Qs. had d/w family and team Dr Jairo Carolina Office: [phone] reason for consult: MACIE HPI: Pt is a 77 y/o M with hx of HTN, CHF, A fib, morbd obesity recently diagnosed with jaundice and undergoing work up for it, so far suggestive of pancreatic mass, admitted to [facility] with MACIE, decreased urine output and rise in bili, he was found to have hypotension prior to ERCP hence was transferred to [place]. Pt had dialysis catheter placed and transferred to [facility] for dialysis initiation renal consult for MACIE management. pt feels ill and tired. has decresaed appetite. no aware about kidney disease in past says not making much urine no OTC/nsaids/herba meds CT with contrast done 10/30 evening. cr 10/31 AM 1.0 low BP noted, pt requiring pressors ROS: he denies SOB/chest pain/nausea/vomitting. rest all other neg except as mentioned in HPI siu removed. feels tired Physical Examination: General Appearance: Comfortable, co-operative. no acute distress Vitals reviewed and noted as below Head; Atraumatic, normocephalic ENT: no ulcers no thrush. Tongue is midline/moist. Oropharynx: no rash or ulcers. EYES: Pupils are equal, round and reactive to light accommodation. Eye muscles and extraocular movement intact. Sclera is icteric. Neck; supple no lymphadenopathy, no thyromegaly or bruit Lungs: normal respiratory rate/effort. Breath sounds appears clear b/l anteriorly Heart: Normal rate. s1s2 normal. No rub or gallop. Extremities: no edema. No varicose veins Neurological: Patient is awake but sleepy follows commands, no focal deifict. Skin: dry and warm. Normal turgor. No rash. Palpitation: Normal elasticity for age. grossly yellow Abdomen: Abdomen is soft non tender no apparent organomegaly Psych: normal insight. has normal affect and mood MSK: no specific joint tenderness or swelling. Digits and nails normal, no deformity : kidney not palpable. bladder not distended . access: Rt IJ shiley with plenty of greenish discharge around exit site and underneath dressing Labs/imaging/EKG reviewed. Past medical history, past surgical history, social history, allergy reviewed and noted as below Family hx; no hx of CKD. rest non contributory work up: left adrenal 2 cm adenoma moderate TR and mildly reduced LVEF UA 100 prot and GNR Bilirubin 36 initially then down trending Objective - Vital Signs/Intake and Output Vital Signs (last 24 hours): Temp Pulse Resp BP Pulse Ox 97.4 F L 87 9 L 85/55 L 98 11/21/17 16:00 11/21/17 16:00 11/21/17 16:00 11/21/17 15:34 11/21/17 16:00 Intake and Output: 11/21/17 11/21/17 06:59 18:59 Intake Total 400 720 Output Total 750 620 Balance -350 100 - Medications Medications: Current Medications Calcium Acetate (Phoslo) 1,334 mg PO TIDCC [facility] Last Admin: 11/21/17 17:09 Dose: 1,334 mg Heparin Sodium (Porcine) (Heparin) 5,000 units SC Q8 [facility] Last Admin: 11/21/17 13:21 Dose: 5,000 units Hydrocortisone Sodium Succinate (Solu-Cortef) 50 mg IV Q12H [facility] Last Admin: 11/21/17 09:34 Dose: 50 mg Hydromorphone HCl (Dilaudid) 0.5 mg IVP Q4H PRN PRN Reason: Pain, severe (8-10) Last Admin: 11/21/17 17:16 Dose: 0.5 mg Vasopressin 40 units/ Dextrose 40 mls @ 2.4 mls/hr IV .[id number] JAQUELINE; 0.04 UNITS/ MIN PRN Reason: Protocol Last Admin: 11/21/17 07:39 Dose: Not Given Ciprofloxacin (Cipro 400mg/200ml Dsw) 400 mg in 200 mls @ 133 mls/hr IVPB Q24H JAQUELINE PRN Reason: Protocol Last Admin: 11/21/17 16:00 Dose: 133 mls/hr Meropenem 500 mg/ Sodium (Chloride) 100 mls @ 100 mls/hr IVPB Q24H JAQUELINE PRN Reason: Protocol Insulin Aspart (Novolog) 0 unit SC ACHS JAQUELINE PRN Reason: Protocol Last Admin: 11/21/17 17:09 Dose: 1 unit Midodrine (Proamatine) 2.5 mg PO TID [facility] Last Admin: 11/21/17 17:09 Dose: 2.5 mg Ondansetron HCl (Zofran Inj) 4 mg IVP Q6 PRN PRN Reason: Nausea/Vomiting Last Admin: 11/17/17 06:00 Dose: 4 mg Pantoprazole Sodium (Protonix Ec Tab) 40 mg PO DAILY [facility] Last Admin: 11/21/17 09:37 Dose: 40 mg Vitamin B Complex/Vit C/Folic Acid (Nephro-Ken) 1 tab PO 0800 [facility] Last Admin: 11/21/17 09:00 Dose: 1 tab - Labs Labs: 11/21/17 06:24 11/21/17 06:22 PT 14.2 SECONDS (9.7-12.2) H 11/20/17 07:32 INR 1.3 11/20/17 07:32 APTT 30 SECONDS (21-34) 11/15/17 06:32
--- NOTE | 2017-11-21 19:31 | CP.PCM.PN ---
Subjective - Date & Time of Evaluation Date of Evaluation: 11/20/17 Time of Evaluation: 13:00 - Subjective Subjective: Has back pain Objective - Vital Signs/Intake and Output Vital Signs (last 24 hours): Temp Pulse Resp BP Pulse Ox 97.4 F L 87 9 L 85/55 L 98 11/21/17 16:00 11/21/17 16:00 11/21/17 16:00 11/21/17 15:34 11/21/17 16:00 Intake and Output: 11/21/17 11/22/17 18:59 06:59 Intake Total 720 Output Total 620 Balance 100 - Medications Medications: Current Medications Calcium Acetate (Phoslo) 1,334 mg PO TIDCC [facility] Last Admin: 11/21/17 17:09 Dose: 1,334 mg Heparin Sodium (Porcine) (Heparin) 5,000 units SC Q8 [facility] Last Admin: 11/21/17 13:21 Dose: 5,000 units Hydrocortisone Sodium Succinate (Solu-Cortef) 50 mg IV Q12H [facility] Last Admin: 11/21/17 09:34 Dose: 50 mg Hydromorphone HCl (Dilaudid) 0.5 mg IVP Q4H PRN PRN Reason: Pain, severe (8-10) Last Admin: 11/21/17 17:16 Dose: 0.5 mg Vasopressin 40 units/ Dextrose 40 mls @ 2.4 mls/hr IV .[id number] JAQUELINE; 0.04 UNITS/ MIN PRN Reason: Protocol Last Admin: 11/21/17 07:39 Dose: Not Given Ciprofloxacin (Cipro 400mg/200ml Dsw) 400 mg in 200 mls @ 133 mls/hr IVPB Q24H JAQUELINE PRN Reason: Protocol Last Admin: 11/21/17 16:00 Dose: 133 mls/hr Meropenem 500 mg/ Sodium (Chloride) 100 mls @ 100 mls/hr IVPB Q24H JAQUELINE PRN Reason: Protocol Insulin Aspart (Novolog) 0 unit SC ACHS JAQUELINE PRN Reason: Protocol Last Admin: 11/21/17 17:09 Dose: 1 unit Midodrine (Proamatine) 2.5 mg PO TID [facility] Last Admin: 11/21/17 17:09 Dose: 2.5 mg Ondansetron HCl (Zofran Inj) 4 mg IVP Q6 PRN PRN Reason: Nausea/Vomiting Last Admin: 11/17/17 06:00 Dose: 4 mg Pantoprazole Sodium (Protonix Ec Tab) 40 mg PO DAILY [facility] Last Admin: 11/21/17 09:37 Dose: 40 mg Vitamin B Complex/Vit C/Folic Acid (Nephro-Ken) 1 tab PO 0800 [facility] Last Admin: 11/21/17 09:00 Dose: 1 tab - Labs Labs: 11/21/17 06:24 11/21/17 06:22 PT 14.2 SECONDS (9.7-12.2) H 11/20/17 07:32 INR 1.3 11/20/17 07:32 APTT 30 SECONDS (21-34) 11/15/17 06:32 - Head Exam Head Exam: ATRAUMATIC - Eye Exam Eye Exam: Scleral icterus - ENT Exam ENT Exam: Mucous Membranes Dry - Respiratory Exam Respiratory Exam: NORMAL BREATHING PATTERN - Cardiovascular Exam Cardiovascular Exam: +S1, +S2 - GI/Abdominal Exam GI & Abdominal Exam: Normal Bowel Sounds - Extremities Exam Extremities Exam: Pedal Edema Assessment and Plan (1) Liver mass Assessment & Plan: suspicious for cholangiocarcinoma s/p biliary drain awaiting transfer to [facility] Status: Acute (2) Anemia Assessment & Plan: chronic disease and renal disease Status: Acute
--- NOTE | 2017-11-21 19:32 | CP.PCM.PN ---
Subjective - Date & Time of Evaluation Date of Evaluation: 11/21/17 Time of Evaluation: 14:00 - Subjective Subjective: Sitting in chair, family at bedside. Objective - Vital Signs/Intake and Output Vital Signs (last 24 hours): Temp Pulse Resp BP Pulse Ox 97.4 F L 87 9 L 85/55 L 98 11/21/17 16:00 11/21/17 16:00 11/21/17 16:00 11/21/17 15:34 11/21/17 16:00 Intake and Output: 11/21/17 11/22/17 18:59 06:59 Intake Total 720 Output Total 620 Balance 100 - Medications Medications: Current Medications Calcium Acetate (Phoslo) 1,334 mg PO TIDCC [facility] Last Admin: 11/21/17 17:09 Dose: 1,334 mg Heparin Sodium (Porcine) (Heparin) 5,000 units SC Q8 [facility] Last Admin: 11/21/17 13:21 Dose: 5,000 units Hydrocortisone Sodium Succinate (Solu-Cortef) 50 mg IV Q12H [facility] Last Admin: 11/21/17 09:34 Dose: 50 mg Hydromorphone HCl (Dilaudid) 0.5 mg IVP Q4H PRN PRN Reason: Pain, severe (8-10) Last Admin: 11/21/17 17:16 Dose: 0.5 mg Vasopressin 40 units/ Dextrose 40 mls @ 2.4 mls/hr IV .[id number] JAQUELINE; 0.04 UNITS/ MIN PRN Reason: Protocol Last Admin: 11/21/17 07:39 Dose: Not Given Ciprofloxacin (Cipro 400mg/200ml Dsw) 400 mg in 200 mls @ 133 mls/hr IVPB Q24H JAQUELINE PRN Reason: Protocol Last Admin: 11/21/17 16:00 Dose: 133 mls/hr Meropenem 500 mg/ Sodium (Chloride) 100 mls @ 100 mls/hr IVPB Q24H JAQUELINE PRN Reason: Protocol Insulin Aspart (Novolog) 0 unit SC ACHS JAQUELINE PRN Reason: Protocol Last Admin: 11/21/17 17:09 Dose: 1 unit Midodrine (Proamatine) 2.5 mg PO TID [facility] Last Admin: 11/21/17 17:09 Dose: 2.5 mg Ondansetron HCl (Zofran Inj) 4 mg IVP Q6 PRN PRN Reason: Nausea/Vomiting Last Admin: 11/17/17 06:00 Dose: 4 mg Pantoprazole Sodium (Protonix Ec Tab) 40 mg PO DAILY [facility] Last Admin: 11/21/17 09:37 Dose: 40 mg Vitamin B Complex/Vit C/Folic Acid (Nephro-Ken) 1 tab PO 0800 [facility] Last Admin: 11/21/17 09:00 Dose: 1 tab - Labs Labs: 11/21/17 06:24 11/21/17 06:22 PT 14.2 SECONDS (9.7-12.2) H 11/20/17 07:32 INR 1.3 11/20/17 07:32 APTT 30 SECONDS (21-34) 11/15/17 06:32 - Head Exam Head Exam: ATRAUMATIC - Eye Exam Eye Exam: Scleral icterus - ENT Exam ENT Exam: Mucous Membranes Dry - Respiratory Exam Respiratory Exam: NORMAL BREATHING PATTERN - Cardiovascular Exam Cardiovascular Exam: +S1, +S2 - GI/Abdominal Exam GI & Abdominal Exam: Normal Bowel Sounds - Extremities Exam Extremities Exam: Pedal Edema Assessment and Plan (1) Liver mass Assessment & Plan: suspicious for cholangiocarcinoma s/p biliary drain awaiting transfer to [facility] Status: Acute (2) Anemia Assessment & Plan: chronic disease, renal disease Status: Acute
[2017-11-21] MEDS: Meropenem 500 MG in Sodium Chloride 0.9% 100 ML IVPB SCH (19:37)
--- NOTE | 2017-11-21 19:55 | CP.PCM.CON ---
History of Present Illness - History of Present Illness History of Present Illness: 77 yo M w/ PMHx of HTN, A. Fib, CHF, previosly admitted to ICU for painless jaundice(Tbil 37.6) and MACIE from [place], in need of emergent HD. 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 Pt readmitted to ICU(11/21 ) for management of purulent R IJ central line, worsening leukocytosis. Review of Systems - Constitutional Constitutional: Anorexia, Fatigue - Cardiovascular Cardiovascular: Edema. absent: Chest Pain - Respiratory Respiratory: absent: Cough, Dyspnea - Gastrointestinal Gastrointestinal: absent: Abdominal Pain - Musculoskeletal Musculoskeletal: Myalgias - Integumentary Integumentary: Pruritus Past Patient History - Infectious Disease Hx of Infectious Diseases: None - Tetanus Immunizations Tetanus Immunization: Unknown - Past Medical History & Family History Past Medical History?: Yes - Past Social History Smoking Status: Current Some Days Smoker - CARDIAC Hx Cardiac Disorders: Yes Hx Congestive Heart Failure: Yes Hx Hypercholesterolemia: Yes Hx Hypertension: Yes - PULMONARY Hx Chronic Obstructive Pulmonary Disease (COPD): No - NEUROLOGICAL HX Cerebrovascular Accident: No - HEENT Hx HEENT Problems: No - RENAL Hx Chronic Kidney Disease: No - ENDOCRINE/METABOLIC Hx Endocrine Disorders: No - HEMATOLOGICAL/ONCOLOGICAL Hx Blood Disorders: No Hx AIDS: No Hx Anemia: No Hx Cancer: No Hx Chemotherapy: No Hx Cirrhosis: No Hx Hepatitis A: No Hx Hepatitis B: No Hx Hepatitis C: No Hx Human Immunodeficiency Virus (HIV): No Hx Metastesis: No Hx Shingles: No Hx Unexplained Bleeding: No - INTEGUMENTARY Hx Dermatological Problems: No - MUSCULOSKELETAL/RHEUMATOLOGICAL Hx Arthritis: No - GASTROINTESTINAL Hx Gastrointestinal Disorders: Yes Hx Colostomy: No Hx Crohn's Disease: No Hx Diverticulitis: No Hx Gall Bladder Disease: Yes Hx Gastroesophageal Reflux: No Hx Ileostomy: No Hx Liver Failure: No Hx Pancreatitis: No HX Swallowing Problems: No Hx Ulcer: No - GENITOURINARY/GYNECOLOGICAL Hx Genitourinary Disorders: No - PSYCHIATRIC Hx Psychophysiologic Disorder: No Hx Substance Use: No - SURGICAL HISTORY Hx Surgeries: No Hx Amputation: No Hx Appendectomy: No Hx Cardiac Catheterization: Yes Hx Cholecystectomy: No Hx Coronary Stent: No Hx Gastric Bypass Surgery: No Hx Hysterectomy: No Hx Joint Replacement: No Hx Kidney Transplant: No Hx Liver Transplant: No Hx Mastectomy: No Hx Musculoskeletal Surgery: No Hx Open Heart Surgery: No Hx Orthopedic Surgery: No Hx Splenectomy: No Hx Valve Replacement: No - ANESTHESIA Hx Anesthesia Reactions: No Hx Malignant Hyperthermia: No Meds Home Medications: Home Medication List Medication Instructions Recorded Confirmed Type Calcium Acetate [Phoslo] 1,334 mg PO TIDCC tab 11/20/17 Rx Ciprofloxacin Lactate/D5w 400 mg IV DAILY #12 piggyback 11/20/17 Rx [Ciprofloxacn-D5w 200 mg/100 ml] HYDROmorphone [Dilaudid] 0.5 mg IVP Q4H PRN cartridge 11/20/17 Rx Heparin 5,000 units SC Q8 vial 11/20/17 Rx Hydrocortisone- [Solu-Cortef] 50 mg IV Q12H vial 11/20/17 Rx Insulin Aspart, Recombinant 0 unit SC ACHS unit 11/20/17 Rx [Novolog] Insulin Aspart, Recombinant 0 unit SC Q6H unit 11/20/17 Rx [Novolog] Midodrine [Proamatine] 2.5 mg PO TID tab 11/20/17 Rx Ondansetron [Zofran Inj] 4 mg IVP Q6 PRN vial 11/20/17 Rx Pantoprazole [Protonix EC Tab] 40 mg PO DAILY ect 11/20/17 Rx Vitamin B Complex/Vit C/Folic 1 tab PO 0800 tab 11/20/17 Rx [Nephro-Ken] Allergies/Adverse Reactions: Allergies Allergy/AdvReac Type Severity Reaction Status Date / Time aspirin Allergy ANAPHYLAXIS Verified 11/08/17 14:49 Penicillins Allergy PT DOES Verified 11/08/17 14:49 NOT REMEMBER THE REACTION - Medications Medications: Current Medications Calcium Acetate (Phoslo) 1,334 mg PO TIDCC [facility] Last Admin: 11/21/17 17:09 Dose: 1,334 mg Heparin Sodium (Porcine) (Heparin) 5,000 units SC Q8 [facility] Last Admin: 11/21/17 13:21 Dose: 5,000 units Hydrocortisone Sodium Succinate (Solu-Cortef) 50 mg IV Q12H [facility] Last Admin: 11/21/17 09:34 Dose: 50 mg Hydromorphone HCl (Dilaudid) 0.5 mg IVP Q4H PRN PRN Reason: Pain, severe (8-10) Last Admin: 11/21/17 17:16 Dose: 0.5 mg Vasopressin 40 units/ Dextrose 40 mls @ 2.4 mls/hr IV .[id number] JAQUELINE; 0.04 UNITS/ MIN PRN Reason: Protocol Last Admin: 11/21/17 07:39 Dose: Not Given Ciprofloxacin (Cipro 400mg/200ml Dsw) 400 mg in 200 mls @ 133 mls/hr IVPB Q24H JAQUELINE PRN Reason: Protocol Last Admin: 11/21/17 16:00 Dose: 133 mls/hr Meropenem 500 mg/ Sodium (Chloride) 100 mls @ 100 mls/hr IVPB Q24H JAQUELINE PRN Reason: Protocol Last Admin: 11/21/17 19:37 Dose: 100 mls/hr Insulin Aspart (Novolog) 0 unit SC ACHS JAQUELINE PRN Reason: Protocol Last Admin: 11/21/17 17:09 Dose: 1 unit Midodrine (Proamatine) 2.5 mg PO TID [facility] Last Admin: 11/21/17 17:09 Dose: 2.5 mg Ondansetron HCl (Zofran Inj) 4 mg IVP Q6 PRN PRN Reason: Nausea/Vomiting Last Admin: 11/17/17 06:00 Dose: 4 mg Pantoprazole Sodium (Protonix Ec Tab) 40 mg PO DAILY [facility] Last Admin: 11/21/17 09:37 Dose: 40 mg Vitamin B Complex/Vit C/Folic Acid (Nephro-Ken) 1 tab PO 0800 [facility] Last Admin: 11/21/17 09:00 Dose: 1 tab Physical Exam - Head Exam Head Exam: ATRAUMATIC, NORMAL INSPECTION, NORMOCEPHALIC - Eye Exam Eye Exam: EOMI, Scleral icterus - Respiratory Exam Respiratory Exam: Clear to Auscultation Bilateral, NORMAL BREATHING PATTERN - Cardiovascular Exam Cardiovascular Exam: REGULAR RHYTHM - GI/Abdominal Exam GI & Abdominal Exam: Normal Bowel Sounds, Soft (ascitic). absent: Tenderness Results - Vital Signs Recent Vital Signs: Last Vital Signs Temp 97.4 F L 11/21/17 16:00 Pulse 87 11/21/17 16:00 Resp 9 L 11/21/17 16:00 BP 85/55 L 11/21/17 15:34 Pulse Ox 98 11/21/17 16:00 - Labs Result Diagrams: 11/21/17 06:24 11/21/17 06:22 Labs: Laboratory Results - last 24 hr 11/19/17 11/19/17 11/20/17 16:13 21:10 07:23 WBC RBC Hgb Hct MCV MCH MCHC RDW Plt Count MPV Neut % (Auto) Lymph % (Auto) [place] % (Auto) Eos % (Auto) Baso % (Auto) Neut # (Auto) Lymph # (Auto) [place] # (Auto) Eos # (Auto) Baso # (Auto) Neutrophils % (Manual) Band Neutrophils % Lymphocytes % (Manual) Monocytes % (Manual) Myelocytes % Platelet Estimate Anisocytosis (manual) Target Cells Sodium Potassium Chloride Carbon Dioxide Anion Gap BUN Creatinine Est GFR ( Amer) Est GFR (Non-Af Amer) POC Glucose (mg/dL) 123 H 118 H 92 Random Glucose Calcium Total Bilirubin AST ALT Alkaline Phosphatase Total Protein Albumin Globulin Albumin/Globulin Ratio Procalcitonin 11/20/17 11/20/17 11/20/17 11:46 16:32 21:11 WBC RBC Hgb Hct MCV MCH MCHC RDW Plt Count MPV Neut % (Auto) Lymph % (Auto) [place] % (Auto) Eos % (Auto) Baso % (Auto) Neut # (Auto) Lymph # (Auto) [place] # (Auto) Eos # (Auto) Baso # (Auto) Neutrophils % (Manual) Band Neutrophils % Lymphocytes % (Manual) Monocytes % (Manual) Myelocytes % Platelet Estimate Anisocytosis (manual) Target Cells Sodium Potassium Chloride Carbon Dioxide Anion Gap BUN Creatinine Est GFR ( Amer) Est GFR (Non-Af Amer) POC Glucose (mg/dL) 84 143 H 132 H Random Glucose Calcium Total Bilirubin AST ALT Alkaline Phosphatase Total Protein Albumin Globulin Albumin/Globulin Ratio Procalcitonin 11/21/17 11/21/17 11/21/17 06:22 06:22 06:24 WBC 31.3 H RBC 3.25 L Hgb 10.7 L Hct 30.0 L MCV 92.5 MCH 33.0 H MCHC 35.6 RDW 17.1 H Plt Count 176 MPV 9.3 Neut % (Auto) 49.8 L Lymph % (Auto) 43.6 H [place] % (Auto) 6.2 Eos % (Auto) 0.1 Baso % (Auto) 0.3 Neut # (Auto) 15.6 H Lymph # (Auto) 13.7 H [place] # (Auto) 1.9 H Eos # (Auto) 0.0 Baso # (Auto) 0.1 Neutrophils % (Manual) 82 H Band Neutrophils % 4 H Lymphocytes % (Manual) 2 L Monocytes % (Manual) 10 Myelocytes % 2 H Platelet Estimate Normal Anisocytosis (manual) Slight Target Cells Moderate Sodium 149 H Potassium 3.1 L Chloride 106 Carbon Dioxide 27 Anion Gap 19 BUN 89 H Creatinine 3.5 H Est GFR ( Amer) 21 Est GFR (Non-Af Amer) 17 POC Glucose (mg/dL) Random Glucose 128 H Calcium 7.8 L Total Bilirubin > 27.0 H AST 117 H ALT 107 H Alkaline Phosphatase 222 H Total Protein 6.5 Albumin 2.9 L Globulin 3.5 Albumin/Globulin Ratio 0.8 L Procalcitonin 1.27 H 11/21/17 11/21/17 11/21/17 07:14 11:12 16:08 WBC RBC Hgb Hct MCV MCH MCHC RDW Plt Count MPV Neut % (Auto) Lymph % (Auto) [place] % (Auto) Eos % (Auto) Baso % (Auto) Neut # (Auto) Lymph # (Auto) [place] # (Auto) Eos # (Auto) Baso # (Auto) Neutrophils % (Manual) Band Neutrophils % Lymphocytes % (Manual) Monocytes % (Manual) Myelocytes % Platelet Estimate Anisocytosis (manual) Target Cells Sodium Potassium Chloride Carbon Dioxide Anion Gap BUN Creatinine Est GFR ( Amer) Est GFR (Non-Af Amer) POC Glucose (mg/dL) 127 H 123 H 162 H Random Glucose Calcium Total Bilirubin AST ALT Alkaline Phosphatase Total Protein Albumin Globulin Albumin/Globulin Ratio Procalcitonin Assessment & Plan - Assessment and Plan (Free Text) Assessment: 77 yo M readmitted to ICU w/ purulent R IJ TLC(inserted 11/10) and increasing WBC for further management pending transfer to [facility]. 1. Leukocytosis -f/u blood cx -f/u abd/pelvic CT -merrem 500mg -cipro 400mg -ID consult Dr. Trinidad Paredes fib - Currently rate controlled CHF with EF of 40 % - Pro-BNP on admission was 53627 Painless jaundice - T bili increasing >27 - MRCP done at [place] on 10/31 showed intra and extrahepatic biliary dilation with common bile duct measuring 17 mm in the seth hepatis - Right cholecystostomy and biliary drains placed 11/11 - GI consult Dr. Neville - Surgery consult Dr. Vaughn MACIE on CKD stage IV - BUN/Cr 89/3.5 - HD held per Dr. Carolina, renal fxn stable - RIJ trialysis cath inserted on 11/10/17 - Nephro consult Dr. Carolina CEA 3.4, CA [phone] - Heme/onc consult Dr. Jin Hyperglycemia -Hyperglycemia likely 2/2 steroids - HgbA1c 5.6 - ISS - Accucheck Ppx -Protonix 40mg -heparin 5000sc q8 -SCDs -PT/OT - Date & Time Date: 11/21/17 Time: 20:15
--- NOTE | 2017-11-21 20:57 | CP.PCM.PN ---
Subjective - Date & Time of Evaluation Date of Evaluation: 11/21/17 Time of Evaluation: 04:30 - Subjective Subjective: dictated Objective - Vital Signs/Intake and Output Vital Signs (last 24 hours): Temp Pulse Resp BP Pulse Ox 97.4 F L 81 9 L 88/59 L 86 L 11/21/17 16:00 11/21/17 19:34 11/21/17 19:34 11/21/17 19:34 11/21/17 16:55 Intake and Output: 11/21/17 11/22/17 18:59 06:59 Intake Total 720 Output Total 620 Balance 100 - Medications Medications: Current Medications Calcium Acetate (Phoslo) 1,334 mg PO TIDCC [facility] Last Admin: 11/21/17 17:09 Dose: 1,334 mg Heparin Sodium (Porcine) (Heparin) 5,000 units SC Q8 [facility] Last Admin: 11/21/17 13:21 Dose: 5,000 units Hydrocortisone Sodium Succinate (Solu-Cortef) 50 mg IV Q12H [facility] Last Admin: 11/21/17 09:34 Dose: 50 mg Hydromorphone HCl (Dilaudid) 0.5 mg IVP Q4H PRN PRN Reason: Pain, severe (8-10) Last Admin: 11/21/17 17:16 Dose: 0.5 mg Vasopressin 40 units/ Dextrose 40 mls @ 2.4 mls/hr IV .[id number] JAQUELINE; 0.04 UNITS/ MIN PRN Reason: Protocol Last Admin: 11/21/17 07:39 Dose: Not Given Ciprofloxacin (Cipro 400mg/200ml Dsw) 400 mg in 200 mls @ 133 mls/hr IVPB Q24H JAQUELINE PRN Reason: Protocol Last Admin: 11/21/17 16:00 Dose: 133 mls/hr Meropenem 500 mg/ Sodium (Chloride) 100 mls @ 100 mls/hr IVPB Q24H JAQUELINE PRN Reason: Protocol Last Admin: 11/21/17 19:37 Dose: 100 mls/hr Insulin Aspart (Novolog) 0 unit SC ACHS JAQUELINE PRN Reason: Protocol Last Admin: 11/21/17 17:09 Dose: 1 unit Midodrine (Proamatine) 2.5 mg PO TID [facility] Last Admin: 11/21/17 17:09 Dose: 2.5 mg Ondansetron HCl (Zofran Inj) 4 mg IVP Q6 PRN PRN Reason: Nausea/Vomiting Last Admin: 11/17/17 06:00 Dose: 4 mg Pantoprazole Sodium (Protonix Ec Tab) 40 mg PO DAILY [facility] Last Admin: 11/21/17 09:37 Dose: 40 mg Vitamin B Complex/Vit C/Folic Acid (Nephro-Ken) 1 tab PO 0800 [facility] Last Admin: 11/21/17 09:00 Dose: 1 tab - Labs Labs: 11/21/17 06:24 11/21/17 06:22 PT 14.2 SECONDS (9.7-12.2) H 11/20/17 07:32 INR 1.3 11/20/17 07:32 APTT 30 SECONDS (21-34) 11/15/17 06:32
[2017-11-22] MEDS: Vasopressin 40 UNITS in Dextrose 5% In Water 38 ML IV SCH ×2 (00:10→17:29)
--- NOTE | 2017-11-22 01:57 | PN ---
DATE: 11/21/2017 INFECTIOUS DISEASE FOLLOWUP SUBJECTIVE: The patient remains jaundice. He is still in ICU. He was sitting in the chair. The nurse tells me that there was some drainage at the site of the IJ catheter. So, we are going to send that for culture also. I have ordered blood cultures and were done recently which were negative. We will order abdominal CT as he still has a cholecystostomy tube, and it is draining bile. He is sitting in the chair. He looks better than before, but his white count has gone up to 31,000. He has been off Merrem for two days now, but it seems the white count is increasing. I would have to give him a dose of vancomycin and Merrem today. There is no report of any diarrhea. PHYSICAL EXAMINATION: VITAL SIGNS: T-max is 97.4, pulse is 83. Blood pressure was 74/53, now it is 91/56. He is off vasopressors. Respirations are 11. HEENT: Head is atraumatic. Icterus present. NECK: Right IJ catheter, culture has been taken from the neck from there. LUNGS: Clear. HEART: S1, S2 are regular. ABDOMEN: Soft, flabby, nontender. Has a cholecystostomy tube with multiple dressings at this time. EXTREMITIES: Remain with Venodyne boots. LABORATORY DATA: Labs are noted. Labs show white count is 31.3, hemoglobin 10.7, hematocrit 30.8, platelet count is 176. Sodium 149, potassium 3.1, chlorides of 106, BUN is 27. His creatinine is now 3.5. Total bilirubin is more than 27, still remains elevated. Alkaline phosphatase is 228, AST is 117, ALT is 107. ASSESSMENT AND PLAN: At this time, he was just eating. So, they may be doing the abdominal CAT scan in the morning and told that we will wait for it and continue. We will give vancomycin one dose right now, Merrem and Cipro. We will follow the labs tomorrow and have an abdominal CT repeated again as this white count is markedly high and will follow. There was a possibility of cholangiocarcinoma. The patient is awaiting ERCP also. Right now, he is placed on vasopressor also. Stephania Abdi MD
[2017-11-22] MEDS: HYDROmorphone 0.5 mg/0.5 ml ISec IVP PRN ×4 (02:30→21:34)
[2017-11-22 05:58] LABS: BASO # 0.1 K/uL (0.0-0.2); BASO % 0.2 % (0.0-2.0); EOS # 0.1 K/uL (0.0-0.7); EOS % 0.3 % (0.0-4.0); HEMOGLOBIN 10.6 g/dL (12.0-18.0); LYMPH # 1.2 K/uL (1.0-4.3); LYMPH % 4.1 % (20.0-40.0); MEAN CELL VOLUME 92.5 fL (80.0-94.0); MEAN CORPUSCULAR HEMOGLOBIN 32.3 pg (27.0-31.0); MEAN CORPUSCULAR HGB CONC 34.9 g/dL (33.0-37.0); MEAN PLATELET VOLUME 8.8 fL (7.2-11.7); MONO # 4.8 K/uL (0.0-0.8); MONO % 15.8 % (0.0-10.0); NEUT % 79.6 % (50.0-75.0); PLATELET COUNT 161 K/uL (130-400); RBC 3.29 Mil/uL (4.40-5.90); RED CELL DISTRIBUTION WIDTH 17.1 % (11.5-14.5); WHITE BLOOD COUNT 30.2 K/uL (4.8-10.8)
[2017-11-22 06:07] LABS: INR 1.3
[2017-11-22 06:28] LABS: ALB/GLOB RATIO 0.9 (1.0-2.1); ALBUMIN 2.9 g/dL (3.5-5.0)
[2017-11-22] MEDS: (Novolog) Insulin Aspart, Recombinant 100 u/ml 10 ml vial SC SCH ×4 (07:30→21:25)
[2017-11-22 08:34] LABS: ANISOCYTOSIS SLIGHT; LYMPHOCYTE 3 % (20-40); MONOCYTE 11 % (0-10); MYELOCYTE 3 % (0-0); NEUTROPHIL 83 % (50-75); PLATELET ESTIMATE NORMAL (NORMAL); TOTAL CELLS COUNTED 100
[2017-11-22 08:35] LABS: HYPOCHROMIC SLIGHT; POLYCHROMIC SLIGHT; TARGET CELLS MODERATE
--- NOTE | 2017-11-22 08:49 | RAD ---
Date of service: 11/22/2017 HISTORY: leaukocytosis COMPARISON: 11/11/2017 FINDINGS: LUNGS: Minimal linear scar/ atelectasis at left base. No pulmonary infiltrate. PLEURA: No significant pleural effusion identified, no pneumothorax apparent. CARDIOVASCULAR: Normal. OSSEOUS STRUCTURES: No significant abnormalities. VISUALIZED UPPER ABDOMEN: Normal. OTHER FINDINGS: None. IMPRESSION: No active disease.
[2017-11-22] MEDS: Multivitamin Vitamin B Complex (Nephro-Vite) Tab PO SCH (09:04)
[2017-11-22] MEDS ORDERED: Iohexol 240 (50 ml) PO ONE (10:00)
[2017-11-22] MEDS ORDERED: Meropenem 500 MG in Sodium Chloride 0.9% 100 ML IVPB SCH (10:00)
--- NOTE | 2017-11-22 10:03 | CP.PCM.PN ---
Subjective - Date & Time of Evaluation Date of Evaluation: 11/22/17 Time of Evaluation: 10:02 - Subjective Subjective: lying on bed comfortable ,denies pain,Ate breakfast ,good appetite,no BM for 4 days Denies abdominal pain,no fever going for picc line Objective - Vital Signs/Intake and Output Vital Signs (last 24 hours): Temp Pulse Resp BP Pulse Ox 97.2 F L 93 H 7 L 93/59 L 97 11/22/17 08:00 11/22/17 08:00 11/22/17 08:00 11/22/17 07:55 11/22/17 08:00 Intake and Output: 11/22/17 11/22/17 06:59 18:59 Intake Total 340 Output Total 960 0 Balance -620 0 - Medications Medications: Current Medications Calcium Acetate (Phoslo) 1,334 mg PO TIDCC [facility] Last Admin: 11/22/17 09:03 Dose: 1,334 mg Heparin Sodium (Porcine) (Heparin) 5,000 units SC Q8 [facility] Last Admin: 11/22/17 06:37 Dose: 5,000 units Hydrocortisone Sodium Succinate (Solu-Cortef) 50 mg IV Q12H [facility] Last Admin: 11/22/17 09:05 Dose: 50 mg Hydromorphone HCl (Dilaudid) 0.5 mg IVP Q4H PRN PRN Reason: Pain, severe (8-10) Last Admin: 11/22/17 06:38 Dose: 0.5 mg Vasopressin 40 units/ Dextrose 40 mls @ 2.4 mls/hr IV .[id number] JAQUELINE; 0.04 UNITS/ MIN PRN Reason: Protocol Last Admin: 11/22/17 00:10 Dose: Not Given Ciprofloxacin (Cipro 400mg/200ml Dsw) 400 mg in 200 mls @ 133 mls/hr IVPB Q24H JAQUELINE PRN Reason: Protocol Last Admin: 11/21/17 16:00 Dose: 133 mls/hr Meropenem 500 mg/ Sodium (Chloride) 100 mls @ 100 mls/hr IVPB Q24H JAQUELINE PRN Reason: Protocol Last Admin: 11/21/17 19:37 Dose: 100 mls/hr Insulin Aspart (Novolog) 0 unit SC ACHS JAQUELINE PRN Reason: Protocol Last Admin: 11/22/17 07:30 Dose: Not Given Midodrine (Proamatine) 2.5 mg PO TID [facility] Last Admin: 11/22/17 09:04 Dose: 2.5 mg Ondansetron HCl (Zofran Inj) 4 mg IVP Q6 PRN PRN Reason: Nausea/Vomiting Last Admin: 11/17/17 06:00 Dose: 4 mg Pantoprazole Sodium (Protonix Ec Tab) 40 mg PO DAILY [facility] Last Admin: 11/21/17 09:37 Dose: 40 mg Vitamin B Complex/Vit C/Folic Acid (Nephro-Ken) 1 tab PO 0800 [facility] Last Admin: 11/22/17 09:04 Dose: 1 tab - Labs Labs: 11/22/17 05:51 11/22/17 05:51 PT 14.0 SECONDS (9.7-12.2) H 11/22/17 05:51 INR 1.3 11/22/17 05:51 APTT 30 SECONDS (21-34) 11/15/17 06:32 - Constitutional Appears: No Acute Distress, Chronically Ill - Head Exam Head Exam: ATRAUMATIC. absent: NORMAL INSPECTION (jaundiced) - Eye Exam Eye Exam: Scleral icterus - ENT Exam ENT Exam: Mucous Membranes Moist - Neck Exam Neck Exam: Full ROM - Respiratory Exam Respiratory Exam: Clear to Ausculation Bilateral, NORMAL BREATHING PATTERN - Cardiovascular Exam Cardiovascular Exam: REGULAR RHYTHM - GI/Abdominal Exam GI & Abdominal Exam: Soft, Normal Bowel Sounds. absent: Tenderness, Organomegaly (obese,edematous bilateral abdominal wall withweeping ecchymotic skin) - Extremities Exam Extremities Exam: Full ROM - Neurological Exam Neurological Exam: Awake, Oriented x3 - Psychiatric Exam Psychiatric exam: Normal Mood - Skin Skin Exam: Dry Assessment and Plan - Assessment and Plan (Free Text) Plan: 1. Increasing leukocytosis and hypotension/ascending cholangitis s/p Septic Shock secondary to ascending Cholangitis and hypotension Remains off pressors Day 3, Mean arterial pressure above 60,he is alert and oriented,passing urine,tolerating diet (He was brought from [place] on pressor for emergent dialysis Patient was septic and hypotensive on vasopressin) Increasing Leukocytosis is up today its 30,no fever Repeat Bile fluid culture is positive for Stenotrophomonas maltophilia Right IJ cath site purulent looking discharge noted,IJ removed yesterday, follow cultures Ciprofloxacin 400mg IVPB Q24 (active since 11/14/17) Meropenem 500mg IVPB QAM (started on 11/11/17 ,d/c ed on 11/19/2017 and restarted on 11/21/2017) Vancomycin given 11/[address] Abdi today. we will continue same antibiotics. 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 Deanne Jin on board d/w Dr Jin. Hepatobiliary surgeon Dr Eemrson at [facility] will be seeing him at [facility] 3) Acute Renal Failure Dr Carolina group on board d/w Dr Carolina today .Righ IJ removed His UOP better and BUN/cr stable.As per Dr Carolina no acute need for dialysis last HD done 11/15/17. continue to monitor for spontaneous renal recovery. 4) Coagulopathy s/p elevated INR requiring FFP. patient was on coumadin for known atrial fibrillation history Aspirin secondary allergic reaction 5) Atrial fibrillation Patient is on pressor and off anti-hypertensive Now on DVT prophylaxis dosing Echocardiogram (10/31/17) systolic function is mildly impaired, global hypokinesis of left ventricle,EF 40% he has prior admission for coumadin toxicity/Hypercoagulation off aniticoag now except hep sq for dvt prophylaxis 6. Congestive Heart Failure, Systolic Cardiology Dr. Combs on board off anti-hypertensive,off pressor today Aspirin secondary allergic reaction 7 . Prophylactic measure patient is on heparin sq, protonix 40mg IV daily 8.Skin care s/p Drain site leak with skin excoriation-Examined today.looks dry and clean Ecchymotic and Edematous weeping skin noted on his left abdominal wall/skin care as per wound care team 9. Code status - Full code No advance directives D/w Son yesterday Palliative care on board
[2017-11-22] MEDS: Pantoprazole 40 mg EC Tab PO SCH (10:49)
--- NOTE | 2017-11-22 12:46 | CP.PCM.PN ---
Subjective - Date & Time of Evaluation Date of Evaluation: 11/22/17 Time of Evaluation: 12:00 - Subjective Subjective: Feels tired, hopeful for transfer to [facility] Objective - Vital Signs/Intake and Output Vital Signs (last 24 hours): Temp Pulse Resp BP Pulse Ox 97.2 F L 76 10 L 88/55 L 100 11/22/17 08:00 11/22/17 11:09 11/22/17 11:09 11/22/17 11:09 11/22/17 11:09 Intake and Output: 11/22/17 11/22/17 06:59 18:59 Intake Total 340 620 Output Total 960 420 Balance -620 200 - Medications Medications: Current Medications Calcium Acetate (Phoslo) 1,334 mg PO TIDCC [facility] Last Admin: 11/22/17 09:03 Dose: 1,334 mg Heparin Sodium (Porcine) (Heparin) 5,000 units SC Q8 [facility] Last Admin: 11/22/17 06:37 Dose: 5,000 units Hydrocortisone Sodium Succinate (Solu-Cortef) 50 mg IV Q12H [facility] Last Admin: 11/22/17 09:05 Dose: 50 mg Hydromorphone HCl (Dilaudid) 0.5 mg IVP Q4H PRN PRN Reason: Pain, severe (8-10) Last Admin: 11/22/17 10:49 Dose: 0.5 mg Vasopressin 40 units/ Dextrose 40 mls @ 2.4 mls/hr IV .[id number] JAQUELINE; 0.04 UNITS/ MIN PRN Reason: Protocol Last Admin: 11/22/17 00:10 Dose: Not Given Ciprofloxacin (Cipro 400mg/200ml Dsw) 400 mg in 200 mls @ 133 mls/hr IVPB Q24H JAQUELINE PRN Reason: Protocol Last Admin: 11/21/17 16:00 Dose: 133 mls/hr Meropenem 500 mg/ Sodium (Chloride) 100 mls @ 100 mls/hr IVPB Q24H JAQUELINE PRN Reason: Protocol Last Admin: 11/21/17 19:37 Dose: 100 mls/hr Insulin Aspart (Novolog) 0 unit SC ACHS JAQUELINE PRN Reason: Protocol Last Admin: 11/22/17 07:30 Dose: Not Given Midodrine (Proamatine) 2.5 mg PO TID [facility] Last Admin: 11/22/17 09:04 Dose: 2.5 mg Ondansetron HCl (Zofran Inj) 4 mg IVP Q6 PRN PRN Reason: Nausea/Vomiting Last Admin: 11/17/17 06:00 Dose: 4 mg Pantoprazole Sodium (Protonix Ec Tab) 40 mg PO DAILY [facility] Last Admin: 11/22/17 10:49 Dose: 40 mg Vitamin B Complex/Vit C/Folic Acid (Nephro-Ken) 1 tab PO 0800 [facility] Last Admin: 11/22/17 09:04 Dose: 1 tab - Labs Labs: 11/22/17 05:51 11/22/17 05:51 PT 14.0 SECONDS (9.7-12.2) H 11/22/17 05:51 INR 1.3 11/22/17 05:51 APTT 30 SECONDS (21-34) 11/15/17 06:32 - Head Exam Head Exam: ATRAUMATIC - Eye Exam Eye Exam: Scleral icterus - ENT Exam ENT Exam: Mucous Membranes Dry - Respiratory Exam Respiratory Exam: NORMAL BREATHING PATTERN - Cardiovascular Exam Cardiovascular Exam: +S1, +S2 - GI/Abdominal Exam GI & Abdominal Exam: Normal Bowel Sounds - Extremities Exam Extremities Exam: Pedal Edema Assessment and Plan (1) Liver mass Assessment & Plan: 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
--- NOTE | 2017-11-22 13:09 | RAD ---
Date of service: 11/22/2017 HISTORY: post PICC line insertion COMPARISON: 11/22/2017 at 7:35 a.m. FINDINGS: LUNGS: No active pulmonary disease. PLEURA: No significant pleural effusion identified, no pneumothorax apparent. CARDIOVASCULAR: Right PICC catheter terminates in the region of the SVC. Normal heart size. No congestive change. OSSEOUS STRUCTURES: No significant abnormalities. VISUALIZED UPPER ABDOMEN: Normal. OTHER FINDINGS: None. IMPRESSION: New right PICC catheter terminating in the region of the SVC. Otherwise unremarkable.
[2017-11-22] MEDS: Ciprofloxacin 400mg/200ml D5W 400 MG/200 ML BAG IVPB SCH (15:04)
--- NOTE | 2017-11-22 15:05 | CP.PCM.PN ---
Subjective - Date & Time of Evaluation Date of Evaluation: 11/22/17 Time of Evaluation: 15:04 - Subjective Subjective: Nephrology Consultation Note Assessment: critical oligoanuric MACIE likely due to ATN due to shock with sepsis ? bile cast nephropathy. other possible causes may include hepato-renal, recent IV contrast exposure: started HD 11/11/17: IMPROVING HAGMA, hypokalemia and hypernatremia obstructive jaundice ? possible cause as pancreatic mass/cholangiocarcinoma HTN, CHF, A fib, morbd obesity moderate TR left 2 cm adrenal adenoma hyperphosphatemia Anemia s/p cholecystotomy tube Plan UOP better/stable (>1 L/day) and BUN/cr stable. Hence, no acute need for dialysis today. last HD done 11/15/17. maintain hemodynamics stable. avoid hypotension monitor I/O daily weights and renal function with BMP added phoslo, continue same GI, ID, heme/onc following pt is pending transfer to tertiary care center supplement lytes as needed work up for adrenal adenoma later as outpt once stable Dose meds/antibiotics for reduced GFR. Avoid fleets enema/magnesium based laxatives. Avoid nephrotoxins/NSAIDs/ iodinated contrast (unless needed emergently) Glycemic control, Further work up for as per primary team. Thanks for allowing me to participate in care of your patient. Please call if any Qs. had d/w family and team Dr Jairo [place] Office: [phone] reason for consult: MACIE HPI: Pt is a 77 y/o M with hx of HTN, CHF, A fib, morbd obesity recently diagnosed with jaundice and undergoing work up for it, so far suggestive of pancreatic mass, admitted to [facility] with MACIE, decreased urine output and rise in bili, he was found to have hypotension prior to ERCP hence was transferred to [place]. Pt had dialysis catheter placed and transferred to [facility] for dialysis initiation renal consult for MACIE management. pt feels ill and tired. has decresaed appetite. no aware about kidney disease in past says not making much urine no OTC/nsaids/herba meds CT with contrast done 10/30 evening. cr 10/31 AM 1.0 low BP noted, pt requiring pressors ROS: he denies SOB/chest pain/nausea/vomitting. rest all other neg except as mentioned in HPI siu removed. feels tired Physical Examination: General Appearance: Comfortable, co-operative. no acute distress Vitals reviewed and noted as below Head; Atraumatic, normocephalic ENT: no ulcers no thrush. Tongue is midline/moist. Oropharynx: no rash or ulcers. EYES: Pupils are equal, round and reactive to light accommodation. Eye muscles and extraocular movement intact. Sclera is icteric. Neck; supple no lymphadenopathy, no thyromegaly or bruit Lungs: normal respiratory rate/effort. Breath sounds appears clear b/l anteriorly Heart: Normal rate. s1s2 normal. No rub or gallop. Extremities: no edema. No varicose veins Neurological: Patient is awake but sleepy follows commands, no focal deifict. Skin: dry and warm. Normal turgor. No rash. Palpitation: Normal elasticity for age. grossly yellow Abdomen: Abdomen is soft non tender no apparent organomegaly Psych: normal insight. has normal affect and mood MSK: no specific joint tenderness or swelling. Digits and nails normal, no deformity : kidney not palpable. bladder not distended . Labs/imaging/EKG reviewed. Past medical history, past surgical history, social history, allergy reviewed and noted as below Family hx; no hx of CKD. rest non contributory work up: left adrenal 2 cm adenoma moderate TR and mildly reduced LVEF UA 100 prot and GNR Bilirubin 36 initially then down trending Objective - Vital Signs/Intake and Output Vital Signs (last 24 hours): Temp Pulse Resp BP Pulse Ox 97.2 F L 79 15 89/61 L 96 11/22/17 08:00 11/22/17 14:00 11/22/17 14:00 11/22/17 12:46 11/22/17 13:00 Intake and Output: 11/22/17 11/22/17 06:59 18:59 Intake Total 340 620 Output Total 960 420 Balance -620 200 - Medications Medications: Current Medications Calcium Acetate (Phoslo) 1,334 mg PO TIDCC [facility] Last Admin: 11/22/17 13:20 Dose: 1,334 mg Heparin Sodium (Porcine) (Heparin) 5,000 units SC Q8 [facility] Last Admin: 11/22/17 13:21 Dose: 5,000 units Hydrocortisone Sodium Succinate (Solu-Cortef) 50 mg IV Q12H [facility] Last Admin: 11/22/17 09:05 Dose: 50 mg Hydromorphone HCl (Dilaudid) 0.5 mg IVP Q4H PRN PRN Reason: Pain, severe (8-10) Last Admin: 11/22/17 10:49 Dose: 0.5 mg Vasopressin 40 units/ Dextrose 40 mls @ 2.4 mls/hr IV .[id number] JAQUELINE; 0.04 UNITS/ MIN PRN Reason: Protocol Last Admin: 11/22/17 00:10 Dose: Not Given Ciprofloxacin (Cipro 400mg/200ml Dsw) 400 mg in 200 mls @ 133 mls/hr IVPB Q24H JAQUELINE PRN Reason: Protocol Last Admin: 11/21/17 16:00 Dose: 133 mls/hr Meropenem 500 mg/ Sodium (Chloride) 100 mls @ 100 mls/hr IVPB Q24H JAQUELINE PRN Reason: Protocol Last Admin: 11/21/17 19:37 Dose: 100 mls/hr Insulin Aspart (Novolog) 0 unit SC ACHS JAQUELINE PRN Reason: Protocol Last Admin: 11/22/17 13:20 Dose: 1 unit Midodrine (Proamatine) 2.5 mg PO TID [facility] Last Admin: 11/22/17 13:20 Dose: 2.5 mg Ondansetron HCl (Zofran Inj) 4 mg IVP Q6 PRN PRN Reason: Nausea/Vomiting Last Admin: 11/17/17 06:00 Dose: 4 mg Pantoprazole Sodium (Protonix Ec Tab) 40 mg PO DAILY [facility] Last Admin: 11/22/17 10:49 Dose: 40 mg Vitamin B Complex/Vit C/Folic Acid (Nephro-Ken) 1 tab PO 0800 [facility] Last Admin: 11/22/17 09:04 Dose: 1 tab - Labs Labs: 11/22/17 05:51 11/22/17 05:51 PT 14.0 SECONDS (9.7-12.2) H 11/22/17 05:51 INR 1.3 11/22/17 05:51 APTT 30 SECONDS (21-34) 11/15/17 06:32
[2017-11-22] MEDS ORDERED: POLYETHYLENE GLYCOL 3350 17 GM/Dose PACKET PO PRN (15:45)
--- NOTE | 2017-11-22 15:49 | CP.PCM.PN ---
Subjective - Date & Time of Evaluation Date of Evaluation: 11/22/17 Time of Evaluation: 15:48 - Subjective Subjective: GI Fellow PGY4, progress note. Patient seen and examined at bedside. Current events discussed with primary physician. Transferring to telemetry. Central line removed due to infection. No complaints, passing flatus, denies abdominal pain. Tolerating diet but not too hungry. 12pt ROS completed and negative except for above. Objective - Vital Signs/Intake and Output Vital Signs (last 24 hours): Temp Pulse Resp BP Pulse Ox 97.2 F L 79 15 89/61 L 96 11/22/17 08:00 11/22/17 14:00 11/22/17 14:00 11/22/17 12:46 11/22/17 13:00 Intake and Output: 11/22/17 11/22/17 06:59 18:59 Intake Total 340 620 Output Total 960 420 Balance -620 200 - Medications Medications: Current Medications Calcium Acetate (Phoslo) 1,334 mg PO TIDCC [facility] Last Admin: 11/22/17 13:20 Dose: 1,334 mg Heparin Sodium (Porcine) (Heparin) 5,000 units SC Q8 [facility] Last Admin: 11/22/17 13:21 Dose: 5,000 units Hydrocortisone Sodium Succinate (Solu-Cortef) 50 mg IV Q12H [facility] Last Admin: 11/22/17 09:05 Dose: 50 mg Hydromorphone HCl (Dilaudid) 0.5 mg IVP Q4H PRN PRN Reason: Pain, severe (8-10) Last Admin: 11/22/17 10:49 Dose: 0.5 mg Vasopressin 40 units/ Dextrose 40 mls @ 2.4 mls/hr IV .[id number] JAQUELINE; 0.04 UNITS/ MIN PRN Reason: Protocol Last Admin: 11/22/17 00:10 Dose: Not Given Ciprofloxacin (Cipro 400mg/200ml Dsw) 400 mg in 200 mls @ 133 mls/hr IVPB Q24H JAQUELINE PRN Reason: Protocol Last Admin: 11/22/17 15:04 Dose: 133 mls/hr Meropenem 500 mg/ Sodium (Chloride) 100 mls @ 100 mls/hr IVPB Q24H JAQUELINE PRN Reason: Protocol Last Admin: 11/21/17 19:37 Dose: 100 mls/hr Insulin Aspart (Novolog) 0 unit SC ACHS JAQUELINE PRN Reason: Protocol Last Admin: 11/22/17 13:20 Dose: 1 unit Midodrine (Proamatine) 2.5 mg PO TID [facility] Last Admin: 11/22/17 13:20 Dose: 2.5 mg Ondansetron HCl (Zofran Inj) 4 mg IVP Q6 PRN PRN Reason: Nausea/Vomiting Last Admin: 11/17/17 06:00 Dose: 4 mg Pantoprazole Sodium (Protonix Ec Tab) 40 mg PO DAILY [facility] Last Admin: 11/22/17 10:49 Dose: 40 mg Polyethylene Glycol (Miralax) 17 gm PO DAILY PRN PRN Reason: Constipation Vitamin B Complex/Vit C/Folic Acid (Nephro-Ken) 1 tab PO 0800 [facility] Last Admin: 11/22/17 09:04 Dose: 1 tab - Labs Labs: 11/22/17 05:51 11/22/17 05:51 PT 14.0 SECONDS (9.7-12.2) H 11/22/17 05:51 INR 1.3 11/22/17 05:51 APTT 30 SECONDS (21-34) 11/15/17 06:32 Assessment and Plan - Assessment and Plan (Free Text) Assessment: 77yo WM with hx of sytolic CHF, AFIB, recent GI bleed, and presenting with obstructive jaundice, HoTN, septic shock concerning for acute cholangitis and imaging findings concerning for cholangiocarcinoma. #Painless Obstructive jaundice - Concern for cholangiocarcinoma or pancreatic cancer #acute cholangitis - Bile with GNR, Stenotrophomonas Maltophilia sensitive to cipro #Recent GI bleed #Hepatosteatosis #Cholelithiasis #Septic shock #Anion Gap Metabolic Acidosis #Elevated INR #Systolic CHF - 2013 cath without significant CAD #Chronic Afib #MACIE on HD #CLABSI Plan: -Continue supportive care -MRCP reviewed and compared to CT abd/pelv report. -S/P PTC and drain 11/11/17 -PTC revealed: "Cholangiogram showed common hepatic mass extending into right hepatic duct". I discussed result with IR and concerned for cholangiocarcinoma. -Extracutaneous biliary leak per surgical team, wound care -Continue to monitor microbio. + Stenotrophomonas Maltophilia. Sensitive to cipro. Continue abx management per ID. -CLABSI per ID. -Continue PPI -CA19-9, CEA significantly elevated, concerning for malignancy. -F/U CT abdomen results. -Transfer to [facility]. Accepting provider, Dr. Lofton. Pending insurance auth and beds. -Further management pending clinical progress. We will continue to monitor patient course.
--- NOTE | 2017-11-22 16:48 | CT ---
Date of service: 11/22/2017 PROCEDURE: CT Abdomen and Pelvis without intravenous contrast HISTORY: increasing wbc count COMPARISON: 11/11/2017 TECHNIQUE: Without contrast.. Contrast dose: 0 Radiation dose: Total exam DLP = 1430.66 mGy-cm. This CT exam was performed using one or more of the following dose reduction techniques: Automated exposure control, adjustment of the mA and/or kV according to patient size, and/or use of iterative reconstruction technique. FINDINGS: LOWER THORAX: Small right pleural effusion and right lower lobe compressive atelectasis. No left pleural effusion. LIVER: Normal size, contour and attenuation. Intrahepatic biliary gas. Percutaneous trans appendix biliary drainage catheter. No mass. GALLBLADDER AND BILE DUCTS: Contracted gallbladder containing a gallstone. PANCREAS: No mass. Pancreatic stent noted. No peripancreatic fluid collection. SPLEEN: Unremarkable. ADRENALS: 1.8 cm left adrenal mass measuring -8 Hounsfield units, consistent with an adrenal adenoma. No right adrenal mass. KIDNEYS AND URETERS: Unremarkable. No hydronephrosis. No solid mass. VASCULATURE: Unremarkable. No aortic aneurysm. BOWEL: Sigmoid diverticulosis. No evidence of diverticulitis. No bowel obstruction. APPENDIX: Unremarkable. Normal appendix. PERITONEUM: No ascites. No pneumoperitoneum. Ill-defined soft tissue density in the omentum inferior to stomach and posterior to the transverse colon. Cannot rule out neoplasm. Followup advised. LYMPH NODES: Unremarkable. No enlarged lymph nodes. BLADDER: Unremarkable. REPRODUCTIVE: Normal prostate BONES: No acute fracture. OTHER FINDINGS: None. IMPRESSION: Neoplasm. Small right pleural effusion and right lower lobe compressive atelectasis. Percutaneous transhepatic biliary drainage catheter and pancreatic stent noted. Intrahepatic biliary gas. Cholelithiasis. Ill-defined soft tissue density in the omentum posterior to the transverse colon. Followup advised. Cannot rule out
[2017-11-22] MEDS: Meropenem 500 MG in Sodium Chloride 0.9% 100 ML IVPB SCH (18:28)
--- NOTE | 2017-11-22 20:02 | CP.PCM.PN ---
Subjective - Date & Time of Evaluation Date of Evaluation: 11/22/17 Time of Evaluation: 02:30 - Subjective Subjective: dictated Objective - Vital Signs/Intake and Output Vital Signs (last 24 hours): Temp Pulse Resp BP Pulse Ox 97.7 F 86 7 L 94/59 L 97 11/22/17 16:00 11/22/17 18:00 11/22/17 17:40 11/22/17 17:40 11/22/17 16:00 Intake and Output: 11/22/17 11/23/17 18:59 06:59 Intake Total 1100 Output Total 1460 Balance -360 - Medications Medications: Current Medications Calcium Acetate (Phoslo) 1,334 mg PO TIDCC [facility] Last Admin: 11/22/17 17:30 Dose: 1,334 mg Heparin Sodium (Porcine) (Heparin) 5,000 units SC Q8 [facility] Last Admin: 11/22/17 13:21 Dose: 5,000 units Hydrocortisone Sodium Succinate (Solu-Cortef) 50 mg IV Q12H [facility] Last Admin: 11/22/17 09:05 Dose: 50 mg Hydromorphone HCl (Dilaudid) 0.5 mg IVP Q4H PRN PRN Reason: Pain, severe (8-10) Last Admin: 11/22/17 10:49 Dose: 0.5 mg Vasopressin 40 units/ Dextrose 40 mls @ 2.4 mls/hr IV .[id number] JAQUELINE; 0.04 UNITS/ MIN PRN Reason: Protocol Last Admin: 11/22/17 17:29 Dose: Not Given Ciprofloxacin (Cipro 400mg/200ml Dsw) 400 mg in 200 mls @ 133 mls/hr IVPB Q24H JAQUELINE PRN Reason: Protocol Last Admin: 11/22/17 15:04 Dose: 133 mls/hr Meropenem 500 mg/ Sodium (Chloride) 100 mls @ 100 mls/hr IVPB Q24H JAQUELINE PRN Reason: Protocol Last Admin: 11/22/17 18:28 Dose: 100 mls/hr Insulin Aspart (Novolog) 0 unit SC ACHS JAQUELINE PRN Reason: Protocol Last Admin: 11/22/17 17:29 Dose: Not Given Midodrine (Proamatine) 2.5 mg PO TID [facility] Last Admin: 11/22/17 17:30 Dose: 2.5 mg Ondansetron HCl (Zofran Inj) 4 mg IVP Q6 PRN PRN Reason: Nausea/Vomiting Last Admin: 11/17/17 06:00 Dose: 4 mg Pantoprazole Sodium (Protonix Ec Tab) 40 mg PO DAILY [facility] Last Admin: 11/22/17 10:49 Dose: 40 mg Polyethylene Glycol (Miralax) 17 gm PO DAILY PRN PRN Reason: Constipation Last Admin: 11/22/17 17:30 Dose: 17 gm Vitamin B Complex/Vit C/Folic Acid (Nephro-Ken) 1 tab PO 0800 [facility] Last Admin: 11/22/17 09:04 Dose: 1 tab - Labs Labs: 11/22/17 05:51 11/22/17 05:51 PT 14.0 SECONDS (9.7-12.2) H 11/22/17 05:51 INR 1.3 11/22/17 05:51 APTT 30 SECONDS (21-34) 11/15/17 06:32
[2017-11-22 22:03] VITALS: RESP 20
--- NOTE | 2017-11-23 01:43 | PN ---
DATE: 11/22/2017 INFECTIOUS DISEASE FOLLOWUP SUBJECTIVE: The patient remains afebrile, but he is deeply jaundiced. He was going for an x-ray for a procedure today. Dialysis catheter has been since removed. He had a CAT scan report of which I will discuss in my note today. PHYSICAL EXAMINATION: VITAL SIGNS: T-max is 97.7, pulse 86. He does not offer much complaints. Blood pressure was 94/55. Respirations are 11. Saturation is 97%. HEENT: Unremarkable. NECK: Supple. LUNGS: Clear and decreased breath sounds bilaterally. HEART: S1, S2 regular. ABDOMEN: Remains flabby, nontender. Has big ecchymosis on the left side, and he is leaking from there and right biliary drain is also leaking, and he has lot of dressings allover it. EXTREMITIES: Remain with edema and Venodyne boots. SKIN: He remains jaundiced. LABORATORY DATA: White count is 30.2, hemoglobin 10.6, hematocrit 30.5, platelet count is 161. His creatinine . His neutrophils is 83, manual diff shows monocytes are 11 and 3 myelocytes. INR is 1.3. Potassium is 3.8. Creatinine 3.3 and BUN is 93. So he still remains with renal insufficiency. His total bilirubin is still 25.9. AST is 116. ALT is 123. Alk phos is 220. Now he received a right side PICC line as he has been on antibiotics. His culture from the biliary drain body fluid. Blood cultures are negative 24 hours. Wound culture is negative. This wound culture is from the right neck with the body fluid came out Stenotrophomonas maltophilia and he is still growing that and coagulase negative Staph. He also had a CAT scan done of abdomen and pelvis which shows the drain is in place. There is a stent in place, but there is a possibility of neoplasm which was suspected all along, and he has intrahepatic biliary gas, cholelithiasis. The gas may be related to the catheter that was placed, has ill-defined soft tissue density in the omentum prior to transverse colon. Followup is advised. Cannot rule out neoplasm. So this patient still remains with very high white count, still has Stenotrophomonas maltophilia, and in the setting of a neoplasm, I do not if I would be able to clear it. I stayed away from [facility] as he had renal insufficiency, and he has ended up with septic shock and acute renal failure and was on dialysis, and now the dialysis catheter has been discontinued, and we are monitoring and I am awaiting for the sensitivities of Stenotrophomonas maltophilia and is still continuing Merrem as well as Cipro, but overall prognosis remains poor. He remains infected right now, has a cholecystostomy tube, and has probably colon carcinoma, and he has been on antibiotics since admission which was here for dialysis and that was from 11/10/2017, so we are already 13 days into this admission, and he remains still in ICU. Stephania Abdi MD
[2017-11-23] MEDS: (Novolog) Insulin Aspart, Recombinant 100 u/ml 10 ml vial SC SCH ×2 (07:22→11:47)
[2017-11-23 08:43] LABS: HEMOGLOBIN 9.9 g/dL (12.0-18.0); MEAN CELL VOLUME 91.9 fL (80.0-94.0); MEAN CORPUSCULAR HEMOGLOBIN 32.3 pg (27.0-31.0); MEAN CORPUSCULAR HGB CONC 35.1 g/dL (33.0-37.0); MEAN PLATELET VOLUME 9.3 fL (7.2-11.7); PLATELET COUNT 167 K/uL (130-400); RBC 3.07 Mil/uL (4.40-5.90); RED CELL DISTRIBUTION WIDTH 17.5 % (11.5-14.5); WHITE BLOOD COUNT 30.7 K/uL (4.8-10.8)
[2017-11-23 09:08] LABS: ALB/GLOB RATIO 0.9 (1.0-2.1); ALBUMIN 2.7 g/dL (3.5-5.0); CALCIUM 8.2 mg/dl (8.6-10.4)
[2017-11-23] MEDS: Vasopressin 40 UNITS in Dextrose 5% In Water 38 ML IV SCH (09:11)
[2017-11-23] MEDS: Multivitamin Vitamin B Complex (Nephro-Vite) Tab PO SCH ×2 (09:21→09:37)
[2017-11-23] MEDS: HYDROmorphone 0.5 mg/0.5 ml ISec IVP PRN ×2 (09:33→13:25)
[2017-11-23] MEDS: Pantoprazole 40 mg EC Tab PO SCH (09:34)
--- NOTE | 2017-11-23 10:16 | CP.PCM.PN ---
Subjective - Date & Time of Evaluation Date of Evaluation: 11/23/17 Time of Evaluation: 09:30 - Subjective Subjective: Seen and examined this morning. Lying comfortable ,Denies abdominal pain Alert and oriented x3,not confused no sob,Has back discomfort lying on bed and asked to pull him up on bed. No fever,BP 91/62 MAP 81 s/p right arm picc line 11/22/17 Pending transfer to for ERCP Spoke to bed control at [facility]( [phone]) this morning. waiting for bed Objective - Vital Signs/Intake and Output Vital Signs (last 24 hours): Temp Pulse Resp BP Pulse Ox 97.4 F L 92 H 20 91/62 L 95 11/23/17 07:00 11/23/17 08:52 11/23/17 07:00 11/23/17 07:00 11/23/17 07:00 Intake and Output: 11/23/17 11/23/17 06:59 18:59 Intake Total 0 Output Total 650 375 Balance -650 -375 - Medications Medications: Current Medications Calcium Acetate (Phoslo) 1,334 mg PO TIDCC [facility] Last Admin: 11/23/17 09:00 Dose: 1,334 mg Heparin Sodium (Porcine) (Heparin) 5,000 units SC Q8 [facility] Last Admin: 11/23/17 06:30 Dose: 5,000 units Hydrocortisone Sodium Succinate (Solu-Cortef) 50 mg IV Q12H [facility] Last Admin: 11/23/17 09:35 Dose: 50 mg Hydromorphone HCl (Dilaudid) 0.5 mg IVP Q4H PRN PRN Reason: Pain, severe (8-10) Last Admin: 11/23/17 09:33 Dose: 0.5 mg Vasopressin 40 units/ Dextrose 40 mls @ 2.4 mls/hr IV .[id number] JAQUELINE; 0.04 UNITS/ MIN PRN Reason: Protocol Last Admin: 11/23/17 09:11 Dose: Not Given Ciprofloxacin (Cipro 400mg/200ml Dsw) 400 mg in 200 mls @ 133 mls/hr IVPB Q24H JAQUELINE PRN Reason: Protocol Last Admin: 11/22/17 15:04 Dose: 133 mls/hr Meropenem 500 mg/ Sodium (Chloride) 100 mls @ 100 mls/hr IVPB Q24H [facility] PRN Reason: Protocol Last Admin: 11/22/17 18:28 Dose: 100 mls/hr Insulin Aspart (Novolog) 0 unit SC ACHS [facility] PRN Reason: Protocol Last Admin: 11/23/17 07:22 Dose: Not Given Midodrine (Proamatine) 2.5 mg PO TID [facility] Last Admin: 11/23/17 09:34 Dose: 2.5 mg Ondansetron HCl (Zofran Inj) 4 mg IVP Q6 PRN PRN Reason: Nausea/Vomiting Last Admin: 11/17/17 06:00 Dose: 4 mg Pantoprazole Sodium (Protonix Ec Tab) 40 mg PO DAILY [facility] Last Admin: 11/23/17 09:34 Dose: 40 mg Polyethylene Glycol (Miralax) 17 gm PO DAILY PRN PRN Reason: Constipation Last Admin: 11/22/17 17:30 Dose: 17 gm Vitamin B Complex/Vit C/Folic Acid (Nephro-Ken) 1 tab PO 0800 [facility] Last Admin: 11/23/17 09:37 Dose: 1 tab - Labs Labs: 11/23/17 08:29 11/23/17 08:29 PT 14.0 SECONDS (9.7-12.2) H 11/22/17 05:51 INR 1.3 11/22/17 05:51 APTT 30 SECONDS (21-34) 11/15/17 06:32 - Constitutional Appears: No Acute Distress, Chronically Ill - Eye Exam Eye Exam: Scleral icterus - ENT Exam ENT Exam: Mucous Membranes Moist - Respiratory Exam Respiratory Exam: Clear to Ausculation Bilateral, NORMAL BREATHING PATTERN - GI/Abdominal Exam GI & Abdominal Exam: Soft, Normal Bowel Sounds. absent: Tenderness, Mass (obese ,edematous skin fold,right side biliary/chol drain) - Extremities Exam Extremities Exam: absent: Joint Swelling, Tenderness - Neurological Exam Neurological Exam: Awake, Oriented x3 - Psychiatric Exam Psychiatric exam: Normal Mood - Skin Skin Exam: Erythema (Right abdomen Drainx2, dressing on,Excorated skin,right abdominal fold weeping ecchymotic skin with edema.nontender) Assessment and Plan - Assessment and Plan (Free Text) Plan: 1. Ascending cholangitis,Leukocytosis Biliary fluid positive for Stenotrophomonas Maltophilia s/p Septic Shock secondary to ascending Cholangitis and hypotension Remains off pressors Day 4, Mean arterial pressure above 60,he is alert and oriented x 3,passing urine,tolerating diet,no bm (He was brought from [place] on pressor for emergent dialysis Patient was septic and hypotensive on vasopressin) Leukocytosis is up today its 30,no fever Repeat Bile fluid culture is positive for Stenotrophomonas maltophilia s/p Right IJ cath site purulent looking discharge noted,IJ removed 11/21 Ciprofloxacin 400mg IVPB Q24 (active since 11/14/17) Meropenem 500mg IVPB QAM (started on 11/11/17 ,d/c ed on 11/19/2017 and restarted on 11/21/2017) Vancomycin given on 11/21 we will follow with Dr carreno blood cultures negative since admission, last blood culture 11/21 no growth Bile (11/11/17): Stenotrophomonas Maltophilia Taper solucortef on Midodrine 1) Painless Obstructive Jaundice /supecting cholangiocarcinoma Patient is waiting for bed to transfer to [facility] for further work up and treatment Call made to bed control yesterday and this morning. 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 Deanne Jin on board d/w Dr Jin. Hepatobiliary surgeon Dr Emerson at [facility] will be seeing him at [facility] 3) Acute Renal Failure Creatinine today 3.1,K 3.[address] Carolina group on board [facility] IJ removed 11/21 His UOP better and BUN/cr stable.As per Dr Carolina no acute need for dialysis last HD done 11/15/17. continue to monitor for spontaneous renal recovery. 4) Coagulopathy s/p elevated INR requiring FFP. patient was on coumadin for known atrial fibrillation history Aspirin secondary allergic reaction 5) Atrial fibrillation Patient is on pressor and off anti-hypertensive Now on DVT prophylaxis dosing Echocardiogram (10/31/17) systolic function is mildly impaired, global hypokinesis of left ventricle,EF 40% he has prior admission for coumadin toxicity/Hypercoagulation off aniticoag now except hep sq for dvt prophylaxis 6. Congestive Heart Failure, Systolic Cardiology Dr. Combs on board off anti-hypertensive and diuretics,off pressor Edematous weeping abdominal skin Aspirin secondary allergic reaction 7 . Prophylactic measure patient is on heparin sq, protonix 40mg IV daily 8.Skin care s/p Drain site leak with skin excoriation Ecchymotic and Edematous weeping skin noted on his left abdominal wall/skin care as per wound care team 9. Code status - Full code No prior advance directives Had discussions with his only child Son Christopher. He is aware of his medical issues.Patient's has dementia who was cared by the patient. He is not close to his siblings. He wanted me to discuss all his medical plan with his SOn Christopher Palliative care on board
[2017-11-23] MEDS ORDERED: Potassium Chloride 20 mEq/15 ml LIQ UD PO ONE (10:20)
[2017-11-23 10:30] LABS: BANDS 2 % (0-2); LYMPHOCYTE 2 % (20-40); METAMYELOCYTE 1 % (0-0); MONOCYTE 11 % (0-10); MYELOCYTE 1 % (0-0); NEUTROPHIL 83 % (50-75); PLATELET ESTIMATE NORMAL (NORMAL); TOTAL CELLS COUNTED 100
[2017-11-23 10:31] LABS: ANISOCYTOSIS SLIGHT; HYPOCHROMIC SLIGHT; MICROCYTOSIS SLIGHT; POIKILOCYTOSIS SLIGHT; POLYCHROMIC SLIGHT; TARGET CELLS SLIGHT
[2017-11-23 10:32] LABS: OVALOCYTES SLIGHT; SPHEROCYTES SLIGHT
--- NOTE | 2017-11-23 10:42 | PN ---
DATE: 11/23/2017 LOCATION: 656, bed B. SUBJECTIVE: This is 77-year-old male seen and examined early in rounds today. Appears to be awake, alert, and oriented out of the Intensive Care Unit with generalized jaundice. No chest pain or palpations. No actual abdominal pain. No significant shortness of breath. No reported active GI bleeding. The entire chart is reviewed including but not limited to the most recent lab and radiology study results, current and the previous medication list, current and the previous medical events. Case discussed at length before the Intensive Care Unit as well as all the consultants. The latest blood glucose level done today was 93. Rest of the lab results still pending and the patient still have abnormal liver function test with low albumin level with total protein despite oral intake with leucocytosis and low hemoglobin and hematocrit, but normal platelet count. Most recently done chest x-ray yesterday report is seen including abdominal and pelvic CAT scan with official report indicative of small right pleural effusion with atelectasis with evidence of cholelithiasis as well as ill-defined soft tissue density in the omentum posterior to the transverse colon. The possibility of peritoneal feeding was raised. PHYSICAL EXAMINATION: GENERAL: A 77-year-old male. VITAL SIGNS: Afebrile with pulse of 88, respiratory rate of 20 to 22, and blood pressure 104/66. HEENT: Showed pale, dry oral mucoid membrane with bilateral icteric sclerae. LUNGS: Few scattered crepitation decreased air entry at bases. HEART: Positive S1 and S2. ABDOMEN: Soft with mild generalized tenderness and mild distention, obese. EXTREMITIES: Lower extremity, edematous changes. It has to be mentioned that the patient is still has the PTC tube drainage is in place. NEUROLOGIC: No reported new neurological deficits, sensory, or motor. IMPRESSION: 1. Abnormal CAT scan of the abdomen and pelvis as well as abnormal PTC testing indicative of possible common bile duct mass lesion extending into the right intrahepatic lesion as per as radiologist, Dr. Boubacar Jose. 2. Cholelithiasis with possible cholecystitis. 3. 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 SUGGESTION: 1. Continue current management. 2. Multiple attempt so far done for [facility] to accept the patient for further aggressive hepatic surgical evaluation, awaiting an official respond at the [place], [place] refused to accept the patient because he was in the Intensive Care Unit before. We will try again today. The case discussed with the patient's son at length before. Sandeep Torre MD
--- NOTE | 2017-11-23 15:30 | CP.PCM.PN ---
Subjective - Date & Time of Evaluation Date of Evaluation: 11/23/17 Time of Evaluation: 02:00 - Subjective Subjective: dictated Objective - Vital Signs/Intake and Output Vital Signs (last 24 hours): Temp Pulse Resp BP Pulse Ox 97.4 F L 85 20 91/62 L 95 11/23/17 07:00 11/23/17 12:10 11/23/17 07:00 11/23/17 07:00 11/23/17 07:00 Intake and Output: 11/23/17 11/23/17 06:59 18:59 Intake Total 0 200 Output Total 650 475 Balance -650 -275 - Medications Medications: Current Medications Calcium Acetate (Phoslo) 1,334 mg PO TIDCC [facility] Last Admin: 11/23/17 13:00 Dose: 1,334 mg Heparin Sodium (Porcine) (Heparin) 5,000 units SC Q8 [facility] Last Admin: 11/23/17 13:18 Dose: 5,000 units Hydrocortisone Sodium Succinate (Solu-Cortef) 50 mg IV DAILY [facility] Stop: 11/25/17 12:00 Hydromorphone HCl (Dilaudid) 0.5 mg IVP Q4H PRN PRN Reason: Pain, severe (8-10) Last Admin: 11/23/17 13:25 Dose: 0.5 mg Ciprofloxacin (Cipro 400mg/200ml Dsw) 400 mg in 200 mls @ 133 mls/hr IVPB Q24H [facility] PRN Reason: Protocol Last Admin: 11/22/17 15:04 Dose: 133 mls/hr Meropenem 500 mg/ Sodium (Chloride) 100 mls @ 100 mls/hr IVPB Q24H [facility] PRN Reason: Protocol Last Admin: 11/22/17 18:28 Dose: 100 mls/hr Insulin Aspart (Novolog) 0 unit SC ACHS [facility] PRN Reason: Protocol Last Admin: 11/23/17 11:47 Dose: Not Given Midodrine (Proamatine) 2.5 mg PO TID [facility] Last Admin: 11/23/17 13:18 Dose: 2.5 mg Ondansetron HCl (Zofran Inj) 4 mg IVP Q6 PRN PRN Reason: Nausea/Vomiting Last Admin: 11/17/17 06:00 Dose: 4 mg Pantoprazole Sodium (Protonix Ec Tab) 40 mg PO DAILY [facility] Last Admin: 11/23/17 09:34 Dose: 40 mg Polyethylene Glycol (Miralax) 17 gm PO DAILY PRN PRN Reason: Constipation Last Admin: 11/22/17 17:30 Dose: 17 gm Vitamin B Complex/Vit C/Folic Acid (Nephro-Ken) 1 tab PO 0800 [facility] Last Admin: 11/23/17 09:37 Dose: 1 tab - Labs Labs: 11/23/17 08:29 11/23/17 08:29 PT 14.0 SECONDS (9.7-12.2) H 11/22/17 05:51 INR 1.3 11/22/17 05:51 APTT 30 SECONDS (21-34) 11/15/17 06:32
[2017-11-23 16:23] VITALS: BP 99/65; PULSE 91; TEMP 97.3; O2SAT 97
[2017-11-23] MEDS: Ciprofloxacin 400mg/200ml D5W 400 MG/200 ML BAG IVPB SCH (16:30)
--- NOTE | 2017-11-23 21:21 | PN ---
DATE: 11/23/2017 INFECTIOUS DISEASE FOLLOWUP SUBJECTIVE: The patient is now transferred to the floor. He was awake, alert, remains icteric. He has a poor appetite. He just took some liquids. He does not feel like eating much. Remains awake and jaundiced. PHYSICAL EXAMINATION:: VITAL SIGNS: T-max is 97.4, pulse is 85, blood pressure remains 91/62 this morning, respirations are 20. HEENT: Head is atraumatic and normocephalic. NECK: Supple. LUNGS: Clear. HEART: S1 and S2 are regular. ABDOMEN: Soft and nontender. Flabby. EXTREMITIES: Remains with edema. LABORATORY DATA: His white count remains at 30.7, hemoglobin 9.9, hematocrit 28.2, platelet count is 167. He has a cholecystostomy tube. Creatinine is little better, it is 3.1 and BUN is 88. Bilirubin remains at 25.3. He had a CAT scan which showed possibility of the cancer cell and his micro with cholecystostomy tube grew coagulase negative and Stenotrophomonas maltophilia, which probably has same sensitivities as they have not reported it. We will find it out on Saturday continue with meropenem as well as Cipro at this time and prognosis remains guarded, but we will follow. He came in with septic shock, acute renal failure, morbid obesity, acute cholecystitis, status post cholecystostomy tube. Stephania Abdi MD
--- NOTE | 2017-11-25 08:46 | CP.PCM.DIS ---
Provider - Provider Date of Admission: 11/10/17 15:43 Attending physician: Jose Guadalupe Rai MD Primary care physician: Terrell Beckwith MD Time Spent in preparation of Discharge (in minutes): 35 Hospital Course - Lab Results Lab Results: Micro Results 11/21/17 19:15 Blood-Venous Blood Culture - Preliminary NO GROWTH AFTER 3 DAYS 11/21/17 19:00 Blood-Venous Blood Culture - Preliminary NO GROWTH AFTER 3 DAYS 11/21/17 16:49 Neck Gram Stain - Final 11/21/17 16:49 Neck Wound Culture - Final No Growth 11/23/17 06:09 Naris MRSA Culture - Final MRSA NOT DETECTED 11/19/17 14:02 Bile Gram Stain - Final 11/19/17 14:02 Bile Body Fluid Culture - Final Stenotrophomonas Maltophilia Coagulase Neg Staphylococcus 11/18/17 06:37 Blood-Thru Central Line Blood Culture - Final NO GROWTH AFTER 5 DAYS 11/18/17 06:37 Blood-Thru Central Line Gram Stain - Final TEST NOT PERFORMED 11/18/17 06:37 Blood-Thru Central Line Blood Culture - Final NO GROWTH AFTER 5 DAYS 11/18/17 06:37 Blood-Thru Central Line Gram Stain - Final TEST NOT PERFORMED 11/18/17 00:51 Urine Urine Culture - Final No Growth (<1,000 CFU/ML) 11/10/17 16:45 Blood-During Dialysis Blood Culture - Final NO GROWTH AFTER 5 DAYS 11/10/17 16:45 Blood-During Dialysis Gram Stain - Final TEST NOT PERFORMED 11/10/17 17:15 Blood-During Dialysis Blood Culture - Final NO GROWTH AFTER 5 DAYS 11/10/17 17:15 Blood-During Dialysis Gram Stain - Final TEST NOT PERFORMED 11/11/17 17:37 Bile Gram Stain - Final 11/11/17 17:37 Bile Body Fluid Culture - Preliminary NO GROWTH AFTER 3 DAYS 11/11/17 17:36 Bile Gram Stain - Final 11/11/17 17:36 Bile Body Fluid Culture - Final Stenotrophomonas Maltophilia 11/10/17 18:20 Urine,Macias Urine Culture - Final No Growth (<1,000 CFU/ML) 11/10/17 17:37 Nose MRSA Culture (Admit) - Final MRSA NOT DETECTED Most Recent Lab Values WBC 30.7 K/uL (4.8-10.8) H 11/23/17 08:29 RBC 3.07 Mil/uL (4.40-5.90) L 11/23/17 08:29 Hgb 9.9 g/dL (12.0-18.0) L 11/23/17 08:29 Hct 28.2 % (35.0-51.0) L 11/23/17 08:29 MCV 91.9 fL (80.0-94.0) 11/23/17 08:29 MCH 32.3 pg (27.0-31.0) H 11/23/17 08:29 MCHC 35.1 g/dL (33.0-37.0) 11/23/17 08:29 RDW 17.5 % (11.5-14.5) H 11/23/17 08:29 Plt Count 167 K/uL (130-400) 11/23/17 08:29 MPV 9.3 fL (7.2-11.7) 11/23/17 08:29 Neut % (Auto) 79.6 % (50.0-75.0) H 11/22/17 05:51 Lymph % (Auto) 4.1 % (20.0-40.0) L 11/22/17 05:51 [place] % (Auto) 15.8 % (0.0-10.0) H 11/22/17 05:51 Eos % (Auto) 0.3 % (0.0-4.0) 11/22/17 05:51 Baso % (Auto) 0.2 % (0.0-2.0) 11/22/17 05:51 Neut # (Auto) 24.0 K/uL (1.8-7.0) H 11/22/17 05:51 Lymph # (Auto) 1.2 K/uL (1.0-4.3) 11/22/17 05:51 [place] # (Auto) 4.8 K/uL (0.0-0.8) H 11/22/17 05:51 Eos # (Auto) 0.1 K/uL (0.0-0.7) 11/22/17 05:51 Baso # (Auto) 0.1 K/uL (0.0-0.2) 11/22/17 05:51 Neutrophils % (Manual) 83 % (50-75) H 11/23/17 08:29 Band Neutrophils % 2 % (0-2) 11/23/17 08:29 Lymphocytes % (Manual) 2 % (20-40) L 11/23/17 08:29 Monocytes % (Manual) 11 % (0-10) H 11/23/17 08:29 Metamyelocytes % 1 % (0-0) H 11/23/17 08:29 Myelocytes % 1 % (0-0) H 11/23/17 08:29 Differential Comment 11/11/17 06:15 Platelet Estimate Normal (NORMAL) 11/23/17 08:29 Large Platelets Present 11/10/17 16:02 Polychromasia Slight 11/23/17 08:29 Hypochromasia (manual) Slight 11/23/17 08:29 Poikilocytosis (manual Slight 11/23/17 08:29 Anisocytosis (manual) Slight 11/23/17 08:29 Microcytosis (manual) Slight 11/23/17 08:29 Macrocytosis (manual) Slight 11/23/17 08:29 Spherocytes Slight 11/23/17 08:29 Target Cells Slight 11/23/17 08:29 Ovalocytes Slight 11/23/17 08:29 PT 14.0 SECONDS (9.7-12.2) H 11/22/17 05:51 INR 1.3 11/22/17 05:51 APTT 30 SECONDS (21-34) 11/15/17 06:32 Fibrinogen 219 mg/dL (200-400) 11/10/17 17:37 Sodium 145 mmol/L (132-148) 11/23/17 08:29 Potassium 3.2 mmol/L (3.6-5.2) L 11/23/17 08:29 Chloride 104 mmol/L (98-107) 11/23/17 08:29 Carbon Dioxide 25 mmol/L (22-30) 11/23/17 08:29 Anion Gap 20 (10-20) 11/23/17 08:29 BUN 88 mg/dL (9-20) H 11/23/17 08:29 Creatinine 3.1 mg/dL (0.8-1.5) H 11/23/17 08:29 Est GFR ( Amer) 24 11/23/17 08:29 Est GFR (Non-Af Amer) 20 07/21/18 08:29 POC Glucose (mg/dL) 93 mg/dL (65-110) 11/23/17 06:21 Random Glucose 95 mg/dL (75-110) 11/23/17 08:29 Hemoglobin A1c 5.6 % (4.2-6.5) 11/14/17 06:11 Lactic Acid 0.9 mmol/L (0.7-2.1) 11/11/17 06:15 Calcium 8.2 mg/dl (8.6-10.4) L 11/23/17 08:29 Phosphorus 4.3 mg/dL (2.5-4.5) 11/20/17 06:10 Magnesium 1.9 mg/dL (1.6-2.3) 11/23/17 08:29 Total Bilirubin 25.3 mg/dL (0.2-1.3) H 11/23/17 08:29 AST 119 U/L (17-59) H 11/23/17 08:29 ALT 126 U/L (21-72) H 11/23/17 08:29 Alkaline Phosphatase 221 U/L (38-126) H 11/23/17 08:29 Ammonia 38 umol/L (9-33) H 11/10/17 17:37 Troponin I 0.0270 ng/mL (0.00-0.120) 11/11/17 06:15 NT-Pro-B Natriuret Pep 38233 pg/mL (0-900) H 11/10/17 17:37 Total Protein 5.9 g/dL (6.3-8.3) L 11/23/17 08:29 Albumin 2.7 g/dL (3.5-5.0) L 11/23/17 08:29 Globulin 3.1 gm/dL (2.2-3.9) 11/23/17 08:29 Albumin/Globulin Ratio 0.9 (1.0-2.1) L 11/23/17 08:29 Alpha Fetoprotein 1.2 ng/mL (0.0-7.5) 11/12/17 06:09 Carcinoembryonic Ag 3.1 ng/mL (0-3.0) H 11/12/17 15:50 CA 19-9 Antigen 798 U/mL (0-37) H 11/12/17 06:09 Procalcitonin 1.27 NG/ML (0.19-0.49) H 11/21/17 06:22 Urine Color Nancy (YELLOW) 11/18/17 00:51 Urine Clarity Hazy (Clear) 11/18/17 00:51 Urine pH 5.0 (5.0-8.0) 11/18/17 00:51 Ur Specific [place] 1.012 (1.003-1.030) 11/18/17 00:51 Urine Protein Negative mg/dL (NEGATIVE) 11/18/17 00:51 Urine Glucose (UA) Normal mg/dL (Normal) 11/18/17 00:51 Urine Ketones Negative mg/dL (NEGATIVE) 11/18/17 00:51 Urine Blood 2+ (NEGATIVE) H 11/18/17 00:51 Urine Nitrate Negative (NEGATIVE) 11/18/17 00:51 Urine Bilirubin 1+ (NEGATIVE) H 11/18/17 00:51 Urine Urobilinogen 2.0 mg/dL (0.2-1.0) 11/18/17 00:51 Ur Leukocyte Esterase Neg Rhys/uL (Negative) 11/18/17 00:51 Urine WBC (Auto) 3 /hpf (0-5) 11/18/17 00:51 Urine RBC (Auto) 12 /hpf (0-3) H 11/18/17 00:51 Ur Squamous Epith Cells 1 /hpf (0-5) 11/18/17 00:51 Amorphous Sediment Rare /ul (<OCC) H 11/10/17 18:20 Urine Bacteria Rare (<OCC) 11/18/17 00:51 Ur Random Creatinine 106.1 mg/dL 11/10/17 23:55 U Random Total Protein 1548 mg/g creat (22-128) H 11/10/17 09:50 Ur Random Sodium 31 mmol/L 11/10/17 23:55 Random Vancomycin 5.4 ug/mL 11/23/17 08:29 Anti-Mitochondrial Ab Negative (Negative) 11/12/17 15:50 Actin IgG Antibody <20 U (<20) 11/12/17 15:50 Hepatitis A IgM Ab Negative (NEGATIVE) 11/12/17 06:09 Hep Bs Antigen Negative (NEGATIVE) 11/12/17 06:09 Hep Bs Antibody Indeterminate (NEGATIVE) 11/11/17 17:46 Hep B Core IgM Ab Negative (NEGATIVE) 11/12/17 06:09 Hepatitis C Antibody Negative (NEGATIVE) 11/12/17 06:09 Blood Type O POSITIVE 11/10/17 17:37 Antibody Screen Negative 11/10/17 17:37 Discharge Exam - Head Exam Head Exam: ATRAUMATIC. absent: NORMAL INSPECTION (jaundiced) Discharge Plan - Discharge Medications Prescriptions: Ciprofloxacin Lactate/D5w [Ciprofloxacn-D5w 200 mg/100 ml] 400 mg IV DAILY #12 piggyback - Follow Up Plan Condition: GOOD Disposition: OTHER INSTITUTION Instructions: Ciprofloxacin (Systemic), Atrial Fibrillation (DC), Heart Failure , Adult (DC), Sepsis, Adult (DC), Leukocytosis (DC) Additional Instructions: Patient will be transferred to [facility] with accepting doctor- Dr. Lofton. He will be transferred with continued treatments: Ciprofloxacin 400mg IVPB Q24 Meropenem 500mg IVPB QAM Additionally he is to continue all chronic/maintenance medications. Further management will be taken over by the accepting physicians at [facility]. This case was discussed with Dr. Lofton by Dr. Guevara. Referrals: Terrell Beckwith MD [Primary Care Provider] -
== END 2017-11-23 17:00 | disposition short-term general hospital (02) | DRG 871 ==
LOC: C.9I 15:43 → C.6T 11-22 21:56
PROVIDERS: ADMIT Internal Medicine; ATTEND Internal Medicine
PROC: 05HM33Z Insertion of Infusion Device into Right Internal Jugular Vein, Percutaneous Approach (ICD-10-PCS; 2017-11-10)
PROC: 5A1D70Z Performance of Urinary Filtration, Intermittent, Less than 6 Hours Per Day (ICD-10-PCS; principal; 2017-11-11)
PROC: 0F9930Z Drainage of Common Bile Duct with Drainage Device, Percutaneous Approach (ICD-10-PCS; 2017-11-12)
PROC: 0F9430Z Drainage of Gallbladder with Drainage Device, Percutaneous Approach (ICD-10-PCS; 2017-11-12)
PROC: BF131ZZ Fluoroscopy of Gallbladder and Bile Ducts using Low Osmolar Contrast (ICD-10-PCS; 2017-11-12)
PROC: 5A1D70Z Performance of Urinary Filtration, Intermittent, Less than 6 Hours Per Day (ICD-10-PCS; 2017-11-12)
DX: A41.50 Gram-negative sepsis, unspecified (principal); N17.0 Acute kidney failure with tubular necrosis; C24.0 Malignant neoplasm of extrahepatic bile duct; R65.21 Severe sepsis with septic shock; I50.43 Acute on chronic combined systolic (congestive) and diastolic (congestive) heart failure; J96.91 Respiratory failure, unspecified with hypoxia; I13.0 Hypertensive heart and chronic kidney disease with heart failure and stage 1 through stage 4 chronic kidney disease, or unspecified chronic kidney disease; D68.9 Coagulation defect, unspecified; E87.2 Acidosis; J98.11 Atelectasis; K80.01 Calculus of gallbladder with acute cholecystitis with obstruction; K83.0 Cholangitis; K92.2 Gastrointestinal hemorrhage, unspecified; N18.4 Chronic kidney disease, stage 4 (severe); N20.1 Calculus of ureter; T82.7XXA Infection and inflammatory reaction due to other cardiac and vascular devices, implants and grafts, initial encounter; D35.00 Benign neoplasm of unspecified adrenal gland; D64.9 Anemia, unspecified; D69.59 Other secondary thrombocytopenia; E83.39 Other disorders of phosphorus metabolism; E87.6 Hypokalemia; F41.9 Anxiety disorder, unspecified; I48.2 Chronic atrial fibrillation; I25.5 Ischemic cardiomyopathy; I25.10 Atherosclerotic heart disease of native coronary artery without angina pectoris; K76.0 Fatty (change of) liver, not elsewhere classified; K75.9 Inflammatory liver disease, unspecified; K29.70 Gastritis, unspecified, without bleeding; K86.9 Disease of pancreas, unspecified; E78.00 Pure hypercholesterolemia, unspecified; L29.9 Pruritus, unspecified; T38.0X5A Adverse effect of glucocorticoids and synthetic analogues, initial encounter; E66.01 Morbid (severe) obesity due to excess calories; F17.290 Nicotine dependence, other tobacco product, uncomplicated